=== PATIENT | female | born 1940 | race Caucasian/White ===

== ENCOUNTER → 2017-03-22 | Outpatient (CLI) | payer MEDICARE ==
[~2017-03-22] MED LIST: ACET-1256 PO; ACET325T96 PO; ACYC-57 PO; ALL100 PO; ALLO100T PO; BACL1TAB PO; BIOT1CAP3 PO; BISA10SU3 PR; BISA1TAB15 PO; BISM262S7 PO; CALC500C3 PO; CMD/25 PO; CMPS25 PR; DFL100 PO; DICY20TA35 PO; DOCU100C31 PO; DTR/5 PO; DVN/160 PO; ERTA1INJ IV; FENT25DI10 TOP; FLUT0.15 INTNAS; FLUT0.15 NAE; FLV1 PO; FNTTP50 TD; FURO-85 PO; HEPA10IN13 IVF; HYDR-5688 PO; LDDP5 TD; LIDO2SOL19 TOP; LIDOCAINE PATCH TOP; LOSA100T65 PO; LOSA1TAB38 PO; LRS20 PO; MECL1TAB42 PO; MOML PO; MRN/25 PO; MULT-506 PO; MULT-513 PO; NITR1CAP16 PO; NSF10F IVF; NVLGI7030 SC; ONDA4TAB46 PO; ONDA8TAB6 PO; ONDA8TAB62 SL; OXYB10TA PO; OXYC-609 PO; OXYC1TAB3 PO; PANT40TA PO; POLY335019 PO; POTA20TA16 PO; POTTAB2 PO; PPTBS PO; PRED-301 PO; PRED50TA PO; PROCHLORPERAZINE PO; SENN-91 PO; SITA100T3 PO; SITA1TAB27 PO; SODIENE PR; SULF800T23 PO; VALS-58 PO; VANC5CAP PO; VNTHFA/IN INH; WARF5TAB90 PO; [UNRECOGNIZED DRUG - OTHER] RE
[2017-03-22 19:08] LABS: URINE APPEARANCE TURBID (CLEAR); URINE BILIRUBIN NEG (NEG); URINE COLOR YELLOW; URINE EPITHELIAL CELL AUTO 20-30 /lpf (0-5); URINE NITRITE POS (NEG); URINE SPECIFIC GRAVITY 1.009 (1.000-1.030); UROBILINOGEN NEG (NEG)
[2017-03-22 19:14] LABS: MANUAL MICROSCOPIC REQUIRED? NO; REVIEW REQ? NO
== END | disposition home or self-care (01) ==
LOC: C.LABSPEC 10:40
PROVIDERS: ATTEND Obstetrics & Gynecology
DX: N39.0 Urinary tract infection, site not specified (principal)

== ENCOUNTER → 2017-04-12 | Outpatient (CLI) | payer MEDICARE ==
[2017-04-12 16:28] LABS: URINE APPEARANCE TURBID (CLEAR); URINE BILIRUBIN NEG (NEG); URINE COLOR YELLOW; URINE EPITHELIAL CELL AUTO >30 /lpf (0-5); URINE NITRITE POS (NEG); URINE SPECIFIC GRAVITY 1.014 (1.000-1.030); UROBILINOGEN NEG (NEG)
[2017-04-12 16:36] LABS: MANUAL MICROSCOPIC REQUIRED? NO; REVIEW REQ? YES
== END ==
LOC: C.LAB1850 14:32
PROVIDERS: ATTEND Obstetrics & Gynecology
DX: N39.0 Urinary tract infection, site not specified (principal)

== ENCOUNTER 2017-04-21 19:13 | Inpatient (IN) | payer MEDICARE, OTHER ==
[~2017-04-21] VITALS: Ht 154.9 cm; Wt 113.2 kg
[2017-04-21 21:00] VITALS: BP 100/66; PULSE 83; TEMP 36.6; O2SAT 94; BMI 45.8
[2017-04-21] MEDS ORDERED: POLYETHYLENE (MIRALAX) 17 GM PACK PO PRN (22:00)
[2017-04-21] MEDS ORDERED: DiphenhydrAMINE INJ 25 MG in SYRINGE 0 ML IV PRN (22:15)
[2017-04-21] MEDS ORDERED: DEXTROSE 50% 50 ML SYR IV PRN (22:30)
[2017-04-21] MEDS ORDERED: GLUCAGON FOR INJ 1 MG VIAL SQ PRN (22:30)
[2017-04-21] MEDS ORDERED: GLUCOSE 10 TABS/TUBE PO PRN (22:30)
[2017-04-21] MEDS ORDERED: DiphenhydrAMINE HCL 50 MG/ML VIAL IV PRN (22:30)
[2017-04-21] MEDS ORDERED: ERTAPENEM IV 1 GM in SODIUM CHLOR 0.9% AD-VAN 50ML 50 ML IV SCH (22:30)
[2017-04-21] MEDS ORDERED: GLUCOSE 40% GEL 15 GM TUBE PO PRN (22:30)
[2017-04-21] MEDS ORDERED: CMD/25 PO (22:36)
[2017-04-21] MEDS ORDERED: SITA1TAB27 PO (22:36)
[2017-04-21] MEDS ORDERED: DVN/160 PO (22:36)
[2017-04-21] MEDS ORDERED: FLUT0.15 INTNAS (22:36)
[2017-04-21] MEDS ORDERED: WARF5TAB90 PO (22:36)
--- NOTE | 2017-04-21 22:47 | History and Physical ---
History & Physical Date & Time of Service: April 21, 2017 at 22:26 Chief Complaint: E-Coli Uti, Leukocytosis Primary Care Physician: Andres Mark M.D. History of Present Illness Source: patient This is a 77 yo f that is a direct transfer from [facility] for the management of her multi drug resistant UTI. The patient states that she has been suffering from chronic UTI and a staghorn canaliculus for approx a year. She has been treated multiple times for a recurring UTI with E Coli. When she was visiting her phlebotomy coordinator Dr Hugh Canada she requested to get a UA checked because she was suffering from urinary frequency on April 12, 2017. She was diagnosed with a UTI and two medication were tried. The most recent one was Cefuroxime and she was about mid way through her course today. She notes that she was having a lot of GI upset, nausea without vomiting and general malaise. She had a bout of chills this morning. She went to the ED in [place] because of her concern for these symptoms and the headache that she was suffering from. She was evaluated in the ED there and a CT abd was done reflecting her staghorn canaliculus. She follows Dr Baez with [facility] for this. She also had multiple abnormalities in her blood work including leukocytosis (52), neutrophilia, lymphocytosis, smudge cells, atypical lymphocytes and nucleated RBC. Her cr was 1.8 but this is difficult to note if this is BL for patient. She was to be treated with Cipro but developed phlebitis from the medication and this was d/c. They wished to try a different IV antibiotic but was unable to get an IV line multiple times and there was recommendation she be transferred to [place] for further management and central line placement. She is on coumadin for a DVT as she has had three DVT in the left LE and when evaluated in the ED in [place] her INR was > 4. She denies any hematuria, abnormal bruising or epistaxis. She has also noted some looser stools over the last few days. Past Medical/Surgical History Diabetes HTN Staghorn Canaliculi Cholecystectomy Family History No pertinent family history Social History Smoking Status: Never Smoker Smokeless Tobacco Use: No Alcohol Use: none Drug Use: none Marital Status: Housing status: lives with family Occupational Status: retired Multi-Drug Resistant Organisms History of MDRO: No Allergies Coded Allergies: Ciprofloxacin (Verified Allergy, Intermediate, RASH, 04/21/17) Phlebitis Penicillins (Verified Allergy, Mild, HIVES, 04/21/17) Home Medications Scheduled Fluticasone Propionate (Nasal) (Flonase Allergy Relief), 2 SPRAYS INTNAS DAILY Sitagliptin (Januvia), 1 TAB PO DAILY Valsartan (Diovan), 1 TAB PO DAILY Warfarin Sod (Coumadin), 1 TAB PO 2XWK Warfarin Sodium (Coumadin), 1 TAB PO 5XWK Review of Systems Constitutional: + chills, No fever Eyes: No worsening of vision ENT: No hearing loss Respiratory: + dyspnea on exertion, + shortness of breath, No cough, No dyspnea at rest, No sputum, No wheezing Cardiovascular: No chest pain Abdomen: + diarrhea, + nausea, No constipation, No pain, No vomiting Musculoskeletal: No joint pain, No muscle pain Genitourinary - Female: + urinary frequency, No dysuria, No hematuria Neurologic: + weakness, No balance problems, No numbness/tingling Psychiatric: No depression symptoms Endocrine: + fatigue Integumentary: No rash Physical Exam Vital Signs Date Time Temp Pulse Resp B/P Pulse Ox O2 Delivery O2 Flow Rate FiO2 04/21/17 21:00 36.6 83 20 100/66 94 Nasal Cannula 2.0 General Appearance: no apparent distress, + obese Head: normocephalic, atraumatic Eyes: normal inspection ENT: normal ENT inspection Neck: supple Respiratory/Chest: normal breath sounds, no respiratory distress, no accessory muscle use Cardiovascular: regular rate, rhythm, no murmur Abdomen/GI: normal bowel sounds, non tender, soft Back: normal inspection Extremities/Musculoskelatal: no calf tenderness, no pedal edema, + pertinent finding (stasis dermatitis left lower extremity) Neurologic/Psych: alert, normal mood/affect, oriented x 3 Skin: normal color, warm/dry, no rash Lymphatic: no adenopathy Diagnostics Laboratory Results Results Past 24 Hours Test 04/21/17 21:54 04/21/17 22:12 Range/Units Impression Assessment and Plan This is a 77 yo f suffering from a multi drug resistant UTI and lab values which are concerning for CLL Multi drug resistant UTI - Will treat with Ertapenem based on sensitivities - Benadryl available prn - Was able to get IV access quickly, no need for central line - follow up UA - blood cultures pending Leukocytosis; r/o infectious vs CLL - Recheck CBC with a diff - [place] spot, EBV and CMV - Peripheral smear - Hem onc consult Elevated INR - Will hold coumadin - SCD for prophylaxis - recheck INR - Based on recheck may administer vit K however patient is not actively bleeding CIRO vs CKD - HIM consult for previous CR from PCP - NSS @ 100cc/h overnight - reassess in am Diarrhea and recent abx use - check for C diff DM - insulin ISS - hold Januvia HTN - Hold Losartan until BL Cr levels are received DVT prophylaxis - SCD because of elevated INR Resident Physician Supervision Note: Pt seen/examined independently. I discussed the case with the resident and agree with the findings and plan as documented in the note. Any exceptions or clarifications are listed here: 77 y/o F w/recurrent multi-drug resistant UTIs sent from [facility] who claimed that she was sent due to a history of a staghorn calculus and as they could not gain IV access. She apparently had a reaction to IV Cipro at [place] prior to losing access. She is a poor historian. Pts lactic acid is elevated on arrival and a CBC is suspicious for an underlying malignant process BMP indicates a degree of CIRO OE AAO x 3 S1,2 R CTAB NT, ND + pulses - no edema P: Cultures pending - started on Ertapenem Will obtain H/O consult to evaluate for chronic leukemia Aggressive IVF - recheck lactic, BMP Staghorn calculus is chronic however if her UTI does not improve in the short term, urology should be consulted Documented By: Rashid Messer Level of Care Telemetry Advanced Directives Existing Living Will: No Existing Power of Stereo Operator: No Resuscitation Status FULL RESUSCITATION VTE Prophylaxis VTE Risk Assessment Done? Y/N: Yes Risk Level: High Given or contraindicated: SCD's Social Service Consult None Apply Note Total Time: Critical Care 30 - 74 minutes Additional Copies To Andres Mark M.D.
[2017-04-21] MEDS: SODIUM CHLORIDE 0.9% 1000ML 1,000 ML IV SCH (23:03)
[2017-04-21] MEDS: ACETAMINOPHEN 325 MG TAB PO PRN (23:12)
[2017-04-21 23:22] LABS: PARTIAL THROMBOPLASTIN RATIO 1.6; PROTHROMBIN TIME (PATIENT) 58.8 SECONDS (9.0-12.0)
[2017-04-21 23:23] LABS: BUN/CREATININE RATIO 11.2 (10-20); CALCIUM 9.1 mg/dl (8.5-10.1); CREATININE 1.8 mg/dl (0.60-1.20); POTASSIUM 4.3 mmol/L (3.5-5.1)
[2017-04-21 23:24] VITALS: BP 128/79; PULSE 90; TEMP 36.6; O2SAT 93
[2017-04-21 23:24] LABS: INR 5.1 (0.9-1.1)
[2017-04-21 23:26] LABS: ALB/GLOB RATIO 0.8 (0.9-2)
[2017-04-22 00:22] LABS: HEMATOCRIT 35.8 % (37-47); MEAN CELL VOLUME 85.4 fL (80-100); MEAN CORPUSCULAR HEMOGLOBIN 28.9 pg (25-34); MEAN CORPUSCULAR HGB CONC 33.8 g/dl (32-36); PLATELET COUNT 55 K/uL (130-400); RED BLOOD COUNT 4.19 M/uL (4.2-5.4); WHITE BLOOD COUNT 46.73 K/uL (4.8-10.8)
[2017-04-22 00:53] LABS: EOSINOPHIL % 1.7 %; LYMPH ABS # 9.21 K/uL (1.2-3.4); LYMPHOCYTE % 19.7 %; META ABS # 2.38 K/uL (0-0); METAMYELOCYTE % 5.1 %; NEUTROPHILS % 34.2 %; PLT ESTIMATE DECREASED; PROLYM# MAN 16.78 K/uL (0-0)
[2017-04-22 00:54] LABS: COMPLETE YES
[2017-04-22 04:22] VITALS: BP 122/70; PULSE 81; TEMP 36.7; O2SAT 91
[2017-04-22] MEDS: SODIUM CHLORIDE 0.9% 1000ML 1,000 ML IV SCH ×2 (07:07→15:20)
--- NOTE | 2017-04-22 07:10 | Family Medicine Progress Note ---
Progress Note Date of Service April 22, 2017. Subjective Pt evaluation today including: conversation w/ patient, physical exam, chart review, lab review The patient was seen and examined at bedside. Family present in room. Pt reports feeling fatigues, doesn't have an appetite. Pt reports having a headache. One grandaughter states that the headache has been going on for 1 month and the other says it has been going on for four days. Pt had a fall around a month ago. CT head was in yesterday in [place] that was reportedly normal. Constitutional: + problem reported (headache), No chills, No fever, No sweats, No weight loss Respiratory: No cough Cardiovascular: No chest pain Abdomen: No diarrhea, No nausea, No pain, No vomiting Objective Physical Exam General Appearance: WD/WN, no apparent distress, + obese Respiratory/Chest: chest non-tender, lungs clear, normal breath sounds, no respiratory distress, no accessory muscle use Cardiovascular: regular rate, rhythm, no edema, no gallop, no JVD, no murmur Abdomen: normal bowel sounds, non tender, soft, no organomegaly, no pulsatile mass Extremities: normal range of motion, non-tender, normal inspection, no pedal edema, no calf tenderness Neurologic/Psychiatric: no motor/sensory deficits, normal mood/affect, oriented x 3 Skin: warm/dry, no rash Assessment and Plan 77F with a PMHx of left staghorn canaliculus is a transfer from [place] for inability to obtain IV access to the [place] ER for headache and urinary frequency. Pt was found have a UTI that has failed outpatient therapy. CBC is incidentally concerning for CLL. Lactate in [place] was 5.4-->4.1-->3.5-->3.7. Urology was consulted for recurrent drug resistant UTI. Pt cannot be on Cipro because she has had phlebitis on it in the past. Chronic UTI exacerbated by Left Staghorn Calculus - PT is clinically stable. - CT Abdomen and Pelvis radiology report is in chart under "other reports" visualizes calculi. - US kidney. 1. Severe left hydronephrosis with marked renal cortical thinning which is similar to CT of April 21, 2017. - continue with Ertapenem pending sensitivities. - Urine and blood cultures pending. - Appreciate urology recommendations: previously pt didn't want surgical intervention however when explained that this problem will continue without stent or surgical removal of calculi pt became amenable to urology consult. Leukocytosis; r/o infectious vs CLL - Murguia leukocytosis with smudge cells and elevated blasts. - [place] spot (negative), EBV and CMV (pending) - Hem onc consult - will do flow cytometry. Headache - Unknown duration (4 weeks vs 4 days), pt had a fall two weeks ago where she hit she head on the fridge. - CT head was documented in the [place] records but not available in CD she came with. - I called [place] [facility] and they said that the CT Head had No acute intracranial lesion. 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 - Tylenol 650mg PRN Q6H for headache. - Continue to monitor. Elevated INR - Currently 5.0, will hold coumadin and check INR in the AM. - SCD for prophylaxis - Platelets are 40,000 so have low threshold for transfusing. - When restarting Coumadin lower total weekly dose by at least 10%. Chronic kidney disease, stage 3 - Creatinine is 1.7. (unknown baseline). Pt has no recent [place] ER admissions since 2011 to compare to ([place] went electronic in 2011). - HIM consult for previous CR from PCP - Half NSS + 20meq KCL @ 100mls/hr for maintenance. - Continue to monitor. DM2 - Blood sugars are low, hold off on carb counting, sliding scale increase to 1: 30, and reange increased to 180mg/dl. - hold Januvia HTN - Hold Losartan until baseline creatinine levels are reached. DVT prophylaxis - SCD because of elevated INR Resident Involvement: Resident Care Provided Care Provided: Adult Hospital Medicine History Resident Physician Supervision Note: I was present with Dr. Campos during the history and exam. I discussed the case with the resident and agree with the findings and plan as documented in the note. Any exceptions or clarifications are listed here. Pt reports improved fatigue, though still persistent. Reports no fever, flank/ abd pain, n/v/d/c, lightheadedness. Some chronic, posterior headache which worsens with chin tuck which has become more prominent since admission. H/O fall 3 wks ago without immediate eval but w/ CT completed @ [facility] before transfer. General Appearance: no apparent distress, obese Respiratory: chest non-tender, lungs clear, normal breath sounds, no respiratory distress Cardiovascular: normal peripheral pulses, regular rate, rhythm, no murmur Gastrointestinal: normal bowel sounds, non tender, soft, no organomegaly Assessment/Plan 77 y/o female h/o staghorn canaliculi and recent MDRO UTI presents w/ multiple medical issues MDRO UTI - obtain records from PCP and [facility] - continue Ertapenem. BCx pending. Urology consult - has been recommended REMOVAL of canaliculi in the past and refused, but is willing to be re-evaluated at this time and consider options. Trend lactic acid level Leukocytosis - concerning for leukemia/lymphoma - hematology consulted, input appreciated - follow up serum fibrinogen, trend CBC Supratherapeutic INR - 5.0 this AM w/o stigmata of bleeding. Hold and decrease total weekly dose by 10% CIRO v. CKD - Adjust IVF to 1/2NS w/ K @ 100cc/hr, monitor DMII - ISS, can restart Januvia as outpatient HTN - add PRN, hold Losartan for now Fall history - PT consult for concern for deconditioning. DVT PPX - SCDs (INR > 3)
[2017-04-22] MEDS: ACETAMINOPHEN 325 MG TAB PO PRN ×3 (07:12→20:25)
[2017-04-22 07:13] VITALS: BP 141/65; PULSE 89; TEMP 36.4; O2SAT 92
[2017-04-22 07:20] LABS: HEMATOCRIT 34.5 % (37-47); MEAN CELL VOLUME 85.6 fL (80-100); MEAN CORPUSCULAR HGB CONC 33.9 g/dl (32-36); MEAN PLATELET VOLUME 8.1 fL (7.4-10.4); PLATELET COUNT 42 K/uL (130-400); RED BLOOD COUNT 4.03 M/uL (4.2-5.4); WHITE BLOOD COUNT 46.15 K/uL (4.8-10.8)
[2017-04-22 07:33] LABS: PARTIAL THROMBOPLASTIN RATIO 1.7; PROTHROMBIN TIME (PATIENT) 56.9 SECONDS (9.0-12.0)
[2017-04-22 07:40] LABS: BUN/CREATININE RATIO 12.6 (10-20); CALCIUM 8.8 mg/dl (8.5-10.1); CREATININE 1.7 mg/dl (0.60-1.20); POTASSIUM 4.2 mmol/L (3.5-5.1)
[2017-04-22] MEDS: FLUTICASONE PROPIONATE NA SPR 16 GM BTL SCH (08:55)
[2017-04-22] MEDS: INSULIN ASPART 100 UNITS/ML 3 ML PEN SC SCH ×4 (08:56→20:56)
[2017-04-22 09:44] LABS: COMPLETE YES; EOSINOPHIL % 0.9 %; LYMPH ABS # 23.03 K/uL (1.2-3.4); LYMPHOCYTE % 49.9 %; METAMYELOCYTE % 2.6 %; MYELOCYTE % 0.9 %; NEUTROPHILS % 37.1 %
[2017-04-22 10:00] VITALS: Ht 154.9 cm; Wt 113.2 kg
[2017-04-22 10:28] LABS: SMUDGE CELLS PRESENT
--- NOTE | 2017-04-22 11:04 | Oncology Consultation ---
Oncology/Heme Consultation Date of Consultation: April 22, 2017. Attending Physician: Vik Ma MD Reason for Consultation: Thrombocytopenic and lymphocytosis History of Present Illness Ms. Perez is 77-year-old female that states that she has been troubled with repeated urinary tract infections for almost a year. The bulk of her care has been in the [facility]. She was admitted yesterday and with the admission was found to have a lymphocytosis and a platelet count of 40-50,000. She states that she has been on Coumadin for repeated clots. She is only a fair historian. She denies significant night sweats although she states that occasionally she does have a sweat that she thinks is most likely related to menopause. She denies any weight loss. She states she had a chill the other night not on ago. We have no other blood work to follow back on other than a CBC from 2001 was normal Family History No pertinent family history Social History Smoking Status: Never Smoker Smokeless Tobacco Use: No Alcohol Use: none Drug Use: none Marital Status: Occupation Status: retired Allergies Coded Allergies: Ciprofloxacin (Verified Allergy, Intermediate, RASH, 04/21/17) Phlebitis Penicillins (Verified Allergy, Mild, HIVES, 04/21/17) Home Medications Scheduled Fluticasone Propionate (Nasal) (Flonase Allergy Relief), 2 SPRAYS INTNAS DAILY Sitagliptin (Januvia), 1 TAB PO DAILY Valsartan (Diovan), 1 TAB PO DAILY Warfarin Sod (Coumadin), 1 TAB PO 2XWK Warfarin Sodium (Coumadin), 1 TAB PO 5XWK Current Inpatient Medications Current Inpatient Medications Medications (Trade) Dose Ordered Sig/[place] Route Start Time Stop Time Status Last Admin Dose Admin Acetaminophen (Tylenol Tab) 650 mg Q4H PRN PO 04/21/17 22:00 05/21/17 21:59 04/22/17 07:12 650 MG Polyethylene (Miralax Powder Packet) 17 gm DAILY PRN PO 04/21/17 22:00 05/21/17 21:59 Ondansetron HCl 4 mg 4 mg Q6H PRN IV 04/21/17 22:00 05/21/17 21:59 Ertapenem/Sodium Chloride (Invanz Iv/Nss Ad-Van 50ml) 50 ml @ 120 mls/hr Q24H IV 04/22/17 22:00 05/01/17 21:59 Insulin Aspart SLIDING SCALE G... ACHS SC 04/22/17 06:30 05/22/17 06:29 Sodium Chloride (Nss 1000ml) 1,000 ml @ 125 mls/hr Q8H IV 04/21/17 22:30 05/21/17 22:29 04/22/17 07:07 125 MLS/HR Glucose (Glucose 40% Gel) 15-30 GRAMS 15 GRAMS... UD PRN PO 04/21/17 22:30 05/21/17 22:29 Glucose (Glucose Chew Tab) 4-8 Tablets 4 Tabl... UD PRN PO 04/21/17 22:30 05/21/17 22:29 Dextrose (Dextrose 50% 50ML Syringe) 25-50ML OF 50% DW IV FOR... UD PRN IV 04/21/17 22:30 05/21/17 22:29 Glucagon (Glucagon Inj) 1 mg UD PRN SQ 04/21/17 22:30 05/21/17 22:29 Diphenhydramine HCl (Benadryl Inj) 25 mg Q6H PRN IV 04/21/17 22:30 05/21/17 22:29 04/21/17 23:01 25 MG Fluticasone Propionate (Flonase Nasal [place]) 2 sprays DAILY NA 04/22/17 09:00 05/22/17 08:59 04/22/17 08:55 2 SPRAYS Review of Systems Constitutional: Negative for significant night sweats, or fever Eyes: Negative for event change of vision ENT: Negative for epistaxis, nasal discharge, sore throat, or deafness Cardiovascular: Negative for chest pain, palpitations, dizziness, diaphoresis Respiratory: Negative for new shortness of breath,hemoptysis, or purulent cough Gastrointestinal: Negative for diarrhea, hematemesis, melena, nausea, vomiting , or dyspepsia Integumentary (skin): Negative for rash or jaundice discoloration Genitourinary: Negative for urinary frequency, hematuria, or dysuria. She states she has a history of kidney stone and again has had repeated urinary tract infections. Neurological: Negative for weakness, seizure activity, headache, or dizziness Lymphatic/Hematologic: Negative for petechiae, bleeding or new adenopathy Musculoskeletal: Negative for new joint or back pain Allergic/Immunologic: Negative for unusual rash or pruritis. Physical Exam Date Time Temp Pulse Resp B/P Pulse Ox O2 Delivery O2 Flow Rate FiO2 04/22/17 07:49 Nasal Cannula 2.0 04/22/17 07:13 36.4 89 18 141/65 92 Room Air 04/22/17 04:22 36.7 81 18 122/70 91 Nasal Cannula 2.0 04/22/17 04:00 Nasal Cannula 2.0 04/22/17 00:00 Nasal Cannula 2.0 04/21/17 23:24 36.6 90 18 128/79 93 Nasal Cannula 2.0 04/21/17 21:00 36.6 83 20 100/66 94 Nasal Cannula 2.0 Constitutional: vitals are stable. Pleasant alert obese female Eyes: Eyes are POLLO EOMI without conjuctival erythema or icterus. ENT: External examination was negative for masses. Neck: Negative for masses or palpable thyromegaly Respiratory: Lung sounds were generally clear bilaterally Cardiovascular: Heart was RRR without significant murmur, gallops aoe rubs Gastrointestinal: No palpable hepatic or splenomegaly. The abdomen was soft with normal bowel sounds. Exam is difficult to the patient's eyes Lymphatic system: there was no palpable peripheral lymphadenopathy Musculoskeletal System: The musculoskeletal system seemed concordant with age. Skin: The skin was negative for jaundice. Neurologic exam: The exam was negative for any focal findings. Deep tendon reflexes were equal and symmetrical. Psychiatric exam: Was essentially negative with normal mood and effect. Breast exam: Not done Extremities: Negative for edema or erythema Laboratory Results Last 24 Hours Test 04/21/17 22:45 04/22/17 06:58 04/22/17 07:20 04/22/17 07:53 White Blood Count 46.73 K/uL 46.15 K/uL Red Blood Count 4.19 M/uL 4.03 M/uL Hemoglobin 12.1 g/dL 11.7 g/dL Hematocrit 35.8 % 34.5 % Mean Corpuscular Volume 85.4 fL 85.6 fL Mean Corpuscular Hemoglobin 28.9 pg 29.0 pg Mean Corpuscular Hemoglobin Concent 33.8 g/dl 33.9 g/dl Platelet Count 55 K/uL 42 K/uL Mean Platelet Volume 8.0 fL 8.1 fL RDW Standard Deviation 47.4 fL 48.3 fL RDW Coefficient of Variation 15.1 % 15.3 % Nucleated RBC Absolute Count (auto) 0.32 K/uL 0.33 K/uL Neutrophils % (Manual) 34.2 % 37.1 % Lymphocytes % (Manual) 19.7 % 49.9 % Prolymphocyte % 35.9 % Monocytes % (Manual) 3.4 % 6.0 % Eosinophils % (Manual) 1.7 % 0.9 % Metamyelocytes % 5.1 % 2.6 % Nucleated Red Blood Cells % 0.7 % 0.7 % Neutrophils # (Manual) 15.98 K/uL 17.12 K/uL Total Absolute Neutrophils 15.98 K/uL 17.12 K/uL Lymphocytes # (Manual) 9.21 K/uL 23.03 K/uL Prolymphocyte # 16.78 K/uL Total Absolute Lymphocytes 9.21 K/uL 23.03 K/uL Monocytes # (Manual) 1.59 K/uL 2.77 K/uL Eosinophils # (Manual) 0.79 K/uL 0.42 K/uL Metamyelocytes # 2.38 K/uL 1.20 K/uL Platelet Estimate DECREASED Red Blood Cell Morphology Unremarkable Prothrombin Time 58.8 SECONDS 56.9 SECONDS Prothromb Time International Ratio 5.1 5.0 Activated Partial Thromboplast Time 41.5 SECONDS 43.4 SECONDS Partial Thromboplastin Ratio 1.6 1.7 Sodium Level 140 mmol/L 140 mmol/L Potassium Level 4.3 mmol/L 4.2 mmol/L Chloride Level 106 mmol/L 109 mmol/L Carbon Dioxide Level 19 mmol/L 20 mmol/L Anion Gap 15.0 mmol/L 11.0 mmol/L Blood Urea Nitrogen 20 mg/dl 21 mg/dl Creatinine 1.80 mg/dl 1.70 mg/dl Est Creatinine Clear Calc Drug Dose 31.0 ml/min 32.8 ml/min Estimated GFR () 31.4 33.6 Estimated GFR (Non- 27.1 29.0 BUN/Creatinine Ratio 11.2 12.6 Random Glucose 96 mg/dl 61 mg/dl Lactic Acid Level 4.1 mmol/L Calcium Level 9.1 mg/dl 8.8 mg/dl Total Bilirubin 0.5 mg/dl Aspartate Amino Transf (AST/SGOT) 220 U/L Alanine Aminotransferase (ALT/SGPT) 37 U/L Alkaline Phosphatase 225 U/L Total Protein 6.9 gm/dl Albumin 3.1 gm/dl Globulin 3.8 gm/dl Albumin/Globulin Ratio 0.8 Monoscreen NEG Myelocytes % 0.9 % Blast Cells % 2.6 % Myelocytes # 0.42 K/uL Blast Cells # 1.20 K/uL Smudge Cells PRESENT Bedside Glucose 61 mg/dl 76 mg/dl Test 04/22/17 08:37 Lactic Acid Level 3.5 mmol/L Assessment & Plan CBC was reviewed. She may indeed have CLL or some sort of lymphoproliferative lesion and a flow cytometric study will be done. Her INR is markedly prolonged presumed secondary to Coumadin she has no overt bleeding but platelet count is also borderline at 40-50,000. We'll check a serum fibrinogen I would not hesitate to give vitamin K and perhaps 2-1/2 mg parenterally although she appears clinically stable at this juncture. CBC should be done daily. She states she had a CT of her abdomen entire at [facility] yesterday and we should gather those results. For now we will follow along with you and order the above blood tests. We'll see how this unfolds but certainly if we find no infection is found and she remains thrombocytopenic than she may need intervention for the presumptive underlying lymphoproliferative lesion
[2017-04-22 11:17] VITALS: BP 120/63; PULSE 88; TEMP 36.6; O2SAT 93
--- NOTE | 2017-04-22 12:49 | Clinical Documentation Query ---
CLINICAL DOCUMENTATION QUERY Dr. ROMERO, In your clinical opinion is this patient being managed for: (x) Chronic kidney disease, stage 3 ( ) Other explanation of clinical findings (Please Explain) ( ) Unable to determine (Please Define) ( ) Need to Discuss ( ) Not Agree The medical record reflects the following clinical findings, treatment, and risk factors. Clinical Indicators: 77 yo female presenting with MDR UTI. Review of documentation from sending facility indicates pt has CKD stage III. H/P mentions CIRO vs CKD. Treatment:monitor PRP Risk Factors: age, DM, HTN Please clarify and document your clinical opinion in the progress notes and discharge summary. Terms such as "probable", "suspected", "likely", "questionable", "possible", or "still to be ruled out" are acceptable. IF IN AGREEMENT, YOU MUST DOCUMENT ABOVE DIAGNOSTIC STATEMENT IN DAILY PROGRESS NOTES AND DISCHARGE SUMMARY. This document is not part of the patient's record. Thank You, Lucila Ryan, RN [phone]
--- NOTE | 2017-04-22 12:50 | Clinical Documentation Query ---
CLINICAL DOCUMENTATION QUERY Dr. CHAVES, In your clinical opinion is this patient being managed for: ( ) Chronic kidney disease, stage 3 ( ) Other explanation of clinical findings (Please Explain) (X) Unable to determine (Please Define) - need confirmation w/ lab values, but likely so and will document accordingly. ( ) Need to Discuss ( ) Not Agree The medical record reflects the following clinical findings, treatment, and risk factors. Clinical Indicators: 77 yo female presenting with MDR UTI. Review of documentation from sending facility indicates pt has CKD stage III. H/P mentions CIRO vs CKD. Treatment:monitor PRP Risk Factors: age, DM, HTN Please clarify and document your clinical opinion in the progress notes and discharge summary. Terms such as "probable", "suspected", "likely", "questionable", "possible", or "still to be ruled out" are acceptable. IF IN AGREEMENT, YOU MUST DOCUMENT ABOVE DIAGNOSTIC STATEMENT IN DAILY PROGRESS NOTES AND DISCHARGE SUMMARY. This document is not part of the patient's record. Thank You, Lucila Ryan RN [phone]
[2017-04-22 15:03] VITALS: BP 136/68; PULSE 88; TEMP 36.4; O2SAT 93
[2017-04-22] MEDS: SODIUM CHLOR 0.45% + 20MEQ KCL 1,000 ML IV SCH (17:16)
--- NOTE | 2017-04-22 17:25 | DIAGNOSTIC IMAGING REPORT ---
RENAL ULTRASOUND CLINICAL HISTORY: Staghorn canaliculus, UTI. COMPARISON STUDY: CT of the abdomen and pelvis April 21, 2017. TECHNIQUE: Sonography of the kidneys and the urinary bladder was performed. FINDINGS: The right kidney measures 11.3 x 5.4 x 6.3 cm and the left measures 12.8 x 9.1 x 6.8 cm. This exam is compromised by suboptimal penetration. There is no right hydronephrosis. The right kidney is normal by sonography. The left renal staghorn calculus shown on CT of April 21, 2017 is not well visualized on this exam likely due to technique. Severe left hydronephrosis with cortical thinning is again noted. This appears unchanged. Neither ureteral jet was identified. IMPRESSION: 1. Severe left hydronephrosis with marked renal cortical thinning which is similar to CT of April 21, 2017. Left renal staghorn calculus shown on prior exam not well visualized, likely due to technique. 2. Normal sonographic appearance of the right kidney. Electronically signed by: Akbar Wills M.D. 04/22/2017 5:23 PM Dictated Date/Time: 04/22/2017 5:21 PM
[2017-04-22 20:15] VITALS: BP 129/77; PULSE 92; TEMP 36.4; O2SAT 94
--- NOTE | 2017-04-22 20:53 | DIAGNOSTIC IMAGING REPORT ---
CHEST 2 VIEWS ROUTINE CLINICAL HISTORY: Lymphocytosis. COMPARISON STUDY: No previous studies for comparison. FINDINGS: Lung volumes are normal. There is no pneumothorax or pleural effusion. Linear bilateral opacities suggest atelectasis or scarring. Cardiac size is at the upper limits of normal. There is no evidence of pulmonary edema. There is no consolidation. IMPRESSION: 1. No acute cardiopulmonary findings. 2. Linear bilateral opacities suggestive of atelectasis. Electronically signed by: Akbar Wills M.D. 04/22/2017 8:52 PM Dictated Date/Time: 04/22/2017 8:51 PM
[2017-04-22] MEDS: ERTAPENEM IV 1 GM in SODIUM CHLOR 0.9% AD-VAN 50ML 50 ML IV SCH (22:09)
[2017-04-23] VITALS (16 sets, daily range): BP systolic 110–150; BP diastolic 70–81; PULSE 82–101; TEMP 36.3–37; O2SAT 90–97
[2017-04-23] MEDS: ONDANSETRON INJ 2 MG/ML 2 ML VIAL IV PRN ×3 (01:56→19:30)
[2017-04-23] MEDS: SODIUM CHLOR 0.45% + 20MEQ KCL 1,000 ML IV SCH ×2 (02:00→12:30)
[2017-04-23] MEDS: ACETAMINOPHEN 325 MG TAB PO PRN ×3 (02:01→19:32)
[2017-04-23 06:30] LABS: HEMATOCRIT 34.4 % (37-47); MEAN CELL VOLUME 86.2 fL (80-100); MEAN CORPUSCULAR HEMOGLOBIN 28.8 pg (25-34); MEAN CORPUSCULAR HGB CONC 33.4 g/dl (32-36); MEAN PLATELET VOLUME 8.9 fL (7.4-10.4); PLATELET COUNT 34 K/uL (130-400); RED BLOOD COUNT 3.99 M/uL (4.2-5.4); WHITE BLOOD COUNT 53.22 K/uL (4.8-10.8)
[2017-04-23] MEDS: INSULIN ASPART 100 UNITS/ML 3 ML PEN SC SCH ×4 (06:30→20:37)
[2017-04-23 06:31] LABS: PROTHROMBIN TIME (PATIENT) 66.9 SECONDS (9.0-12.0)
[2017-04-23 06:33] LABS: INR 5.8 (0.9-1.1)
[2017-04-23 06:53] LABS: BUN/CREATININE RATIO 15.9 (10-20); CALCIUM 8.5 mg/dl (8.5-10.1); CREATININE 1.6 mg/dl (0.60-1.20); POTASSIUM 4.3 mmol/L (3.5-5.1)
--- NOTE | 2017-04-23 07:07 | Family Medicine Progress Note ---
Progress Note Date of Service April 23, 2017. Subjective Pt evaluation today including: conversation w/ patient, physical exam, chart review, lab review The patient is feeling better, and denies acute overnight events. She states she thoughts that she was going to when she had been admitted at the outside hospital and though she knows her issues are complex, she is feeling better than initially Constitutional: No chills, No fever Respiratory: No cough, No shortness of breath Cardiovascular: No chest pain, No palpitations Abdomen: No nausea, No pain Objective Vital Signs Date Time Temp Pulse Resp B/P Pulse Ox O2 Delivery O2 Flow Rate FiO2 04/23/17 04:57 37.0 101 18 148/81 94 2.0 04/23/17 04:00 Nasal Cannula 1.0 04/23/17 00:30 36.9 99 18 130/72 92 2.0 04/23/17 00:00 Nasal Cannula 1.0 04/22/17 20:15 36.4 92 20 129/77 94 Nasal Cannula 1.0 04/22/17 19:52 Nasal Cannula 1.0 04/22/17 15:03 36.4 88 18 136/68 93 Nasal Cannula 1.0 04/22/17 12:00 Nasal Cannula 2.0 04/22/17 11:17 36.6 88 20 120/63 93 Nasal Cannula 1.0 04/22/17 07:49 Nasal Cannula 2.0 04/22/17 07:13 36.4 89 18 141/65 92 Room Air Physical Exam General Appearance: WD/WN, + obese Eyes: normal inspection ENT: hearing grossly normal Neck: supple Respiratory/Chest: lungs clear, normal breath sounds, no respiratory distress, no accessory muscle use, + pertinent finding Cardiovascular: regular rate, rhythm Abdomen: normal bowel sounds, non tender, soft Extremities: normal inspection, no calf tenderness Neurologic/Psychiatric: alert, normal mood/affect, oriented x 3 Skin: normal color, warm/dry, no rash, + pertinent finding (no excessive bruising or bleeding noted) Laboratory Results Results Past 24 Hours Test 04/23/17 06:07 04/23/17 07:26 04/23/17 11:11 04/23/17 14:15 Range/Units White Blood Count 53.22 55.72 4.8-10.8 K/uL Red Blood Count 3.99 4.00 4.2-5.4 M/uL Hemoglobin 11.5 11.2 12.0-16.0 g/dL Hematocrit 34.4 34.0 37-47 % Mean Corpuscular Volume 86.2 85.0 80-100 fL Mean Corpuscular Hemoglobin 28.8 28.0 25-34 pg Mean Corpuscular Hemoglobin Concent 33.4 32.9 32-36 g/dl RDW Standard Deviation 50.7 50.6 36.4-46.3 fL RDW Coefficient of Variation 15.9 16.2 11.5-14.5 % Platelet Count 34 29 130-400 K/uL Mean Platelet Volume 8.9 8.3 7.4-10.4 fL Nucleated RBC Absolute Count (auto) 0.62 0.66 0-0 K/uL Nucleated Red Blood Cells % 1.2 1.2 % Prothrombin Time 66.9 37.7 9.0-12.0 SECONDS Prothromb Time International Ratio 5.8 3.4 0.9-1.1 Sodium Level 141 136-145 mmol/L Potassium Level 4.3 3.5-5.1 mmol/L Chloride Level 111 98-107 mmol/L Carbon Dioxide Level 17 21-32 mmol/L Anion Gap 13.0 3-11 mmol/L Blood Urea Nitrogen 26 7-18 mg/dl Creatinine 1.60 0.60-1.20 mg/dl Est Creatinine Clear Calc Drug Dose 35.2 ml/min Estimated GFR () 36.2 Estimated GFR (Non- 31.2 BUN/Creatinine Ratio 15.9 10-20 Random Glucose 105 70-99 mg/dl Lactic Acid Level 3.8 0.4-2.0 mmol/L Calcium Level 8.5 8.5-10.1 mg/dl Bedside Glucose 101 119 70-90 mg/dl Test 04/23/17 16:50 04/23/17 20:22 04/24/17 04:44 Range/Units Bedside Glucose 124 128 70-90 mg/dl Assessment and Plan 77F with a PMHx of left staghorn canaliculus is a transfer from [place] for inability to obtain IV access on background of headache and urinary frequency. Pt was found have a UTI that has failed outpatient therapy. CBC is incidentally concerning for CLL. Lactate in [place] was 5.4-->4.1-->3.5-->3.7. Urology was consulted for recurrent drug resistant UTI. Chronic UTI exacerbated by left staghorn calculus - PT is clinically stable. CT A/P from [place] visualizes calculi. US kidney 04/21: Severe left hydronephrosis with marked renal cortical thinning which is similar to CT of April 21, 2017. Evidence of multi-drug resistant organism. Blood cultures negative. Urology consulted - appreciate recs. 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 [place] spot negative. Heme/onc consulted - recs appreciated. - EBV and CMV pending - Flow cytometry results pending Thrombocytopenia - ongoing relatively rapid decline, without clinical symptoms. Some concern of this being indicative of prior sepsis leading to DIC - Continue to trend CBC - Consider platelet tranfusion + FFP if indicated Elevated INR - At 5.8 this morning, and has been trending up despite holding warfarin. s/p IV vitamin K 7.5mg, improved INR to 3.4 - Trend INR - When restarting Coumadin, plans to lower total weekly dose by at least 10%. Headache - Unknown duration (4 weeks vs 4 days), pt had a fall two weeks ago where she hit she head on the fridge. CT head was done in [place] showing no acute intracranial lesion. 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 - Tylenol 650mg PRN Q6H for headache. - Continue to monitor. Loose stools - C. diff testing, FOBT - collection pending Chronic kidney disease, stage 3 - Creatinine is 1.7 (unknown baseline), currently Cr 1.6. mIVF with KCl discontinued - Trend BMP DM2 - Januvia held - ISS with BGS ac/hs HTN - Losartan held in view of CIRO, currentl patient has low normal SBP - Hold Losartan DVT prophylaxis - SCD because of elevated INR Full code Continued [facility] stay due to: abnormal vital signs, multiple IV medications needed Resident Tracking Resident Involvement: Resident Care Provided Care Provided: Adult Hospital Medicine History Resident Physician Supervision Note: I was present with Dr. Brown during the history and exam. I discussed the case with the resident and agree with the findings and plan as documented in the note. Any exceptions or clarifications are listed here. Pt sitting comfortably in chair at bedside after working with PT. Having episodes of loose, watery 'rust colored' diarrhea today which are not foul smelling which are new for her. Reports no n/v, abd pain, lightheadedness, CP/ SOB, sensory changes. Family at bedside, questions regarding imaging, course of care and hematology input reviewed. General Appearance: WD/WN, no apparent distress Respiratory: chest non-tender, lungs clear, normal breath sounds, no respiratory distress Cardiovascular: normal peripheral pulses, regular rate, rhythm, no edema, no murmur Gastrointestinal: normal bowel sounds, non tender, soft Assessment/Plan 77 y/o female h/o staghorn canaliculi and recent MDRO UTI presents w/ multiple medical issues MDRO UTI - obtain records from PCP and [facility], Urology consulted, input appreciated - continue Ertapenem. BCx pending. d/c IVF and encourage PO fluids h/o staghorn canaliculi - urology consult reviewed potential options for intervention and per documentation would favor either staged scope approach or nephrectomy. CIRO v. CKD - d/c IVF today, will recheck BMP in AM and reconsider then Leukocytosis - concerning for leukemia/lymphoma - hematology consulted, input appreciated - trend CBC Thrombocytopenia - continuing downward trend, some concern for DIC - trend CBC in AM Supratherapeutic INR - improved to 3.4 s/p VIt K IV - holding dose Diarrhea - C. diff testing, FOBT DMII - ISS, can restart Januvia as outpatient HTN - stable, hold Losartan for now Fall history - PT onboard DVT PPX - SCDs
[2017-04-23] MEDS ORDERED: PHYTONADIONE INJ 2.5 MG in SODIUM CHLORIDE 0.9% 50ML 50 ML IV ONE (08:30)
[2017-04-23] MEDS: ALLOPURINOL 100 MG TAB PO SCH (08:44)
[2017-04-23] MEDS: FLUTICASONE PROPIONATE NA SPR 16 GM BTL SCH (08:44)
--- NOTE | 2017-04-23 10:04 | Urology Consultation ---
History General Date of Service: April 23, 2017. Chief Complaint: Recurrent UTI, L renal stones Primary Care Physician: Andres Mark M.D. Pt seen a urologist before?: Yes If yes, why?: Dr. Baez, Dr. Arrieta for same History of Present Illness 77 yo female, comorbid, admitted with a persistent UTI as an outpatient, transferred from [facility]. She has a long and florid history which she and her sister relate for me today. She has a longstanding history of large L renal stones and hydronephrosis with renal atrophy, managed conservatively due to her comorbidities and history of anticoagulation and a history of recurrent UTI felt to be related to this. She notes she has been seen by Dr. Baez and Dr. Arrieta for this problem and due to the concern over her surgical and bleeding risk no intervention was recommended. She has not followed with urology for over a year per her report. She has had a recent CT scan, images reviewed with patient and family in PACS as well as a recent US an [facility] showing L renal atrophy and large stone burden. She notes last year she had a renal scan which showed the differential function of her left kidney at ~ 25%, unchanged with the presence of a stent which she tolerated poorly. Her current cultures are noted to be negative, Cr elevated and leukocytosis is noted for which she is undergoing hematology evaluation for possible lymphoproliferative disorder. Urology consultation is sought out to assist with her care. She has been afebrile since admission. Imaging Imaging: CT, Ultrasound Laboratory Last 24 Hours Test 04/22/17 11:37 04/22/17 13:29 04/22/17 15:00 04/22/17 16:27 Bedside Glucose 88 mg/dl 91 mg/dl Fibrinogen 381 mg/dl Uric Acid 10.4 mg/dl Lactate Dehydrogenase 9119 U/L Troponin I < 0.015 ng/ml Immunoglobulin G 907.0 mg/dL Immunoglobulin A 195.0 mg/dL Immunoglobulin M 105.0 mg/dL Lactic Acid Level 3.7 mmol/L Test 04/22/17 20:29 04/22/17 22:00 04/23/17 06:07 04/23/17 07:26 Bedside Glucose 103 mg/dl 101 mg/dl Lactic Acid Level 3.9 mmol/L 3.8 mmol/L White Blood Count 53.22 K/uL Red Blood Count 3.99 M/uL Hemoglobin 11.5 g/dL Hematocrit 34.4 % Mean Corpuscular Volume 86.2 fL Mean Corpuscular Hemoglobin 28.8 pg Mean Corpuscular Hemoglobin Concent 33.4 g/dl RDW Standard Deviation 50.7 fL RDW Coefficient of Variation 15.9 % Platelet Count 34 K/uL Mean Platelet Volume 8.9 fL Nucleated RBC Absolute Count (auto) 0.62 K/uL Nucleated Red Blood Cells % 1.2 % Prothrombin Time 66.9 SECONDS Prothromb Time International Ratio 5.8 Sodium Level 141 mmol/L Potassium Level 4.3 mmol/L Chloride Level 111 mmol/L Carbon Dioxide Level 17 mmol/L Anion Gap 13.0 mmol/L Blood Urea Nitrogen 26 mg/dl Creatinine 1.60 mg/dl Est Creatinine Clear Calc Drug Dose 35.2 ml/min Estimated GFR () 36.2 Estimated GFR (Non- 31.2 BUN/Creatinine Ratio 15.9 Random Glucose 105 mg/dl Calcium Level 8.5 mg/dl Past History deep vein thrombosis (recurrent), diabetes, high cholesterol, hypertension, kidney stones, urinary tract infection, other (obesity) Past Surgical History: cholecystectomy, TKR, ureteral stent Family History No pertinent family history Social History Hx Tobacco Use In Past Year?: No Smoking: non-smoker Alcohol: no current use Marital status: Housing status: lives with family Occupation status: retired History of MDRO No Allergies Coded Allergies: Ciprofloxacin (Verified Allergy, Intermediate, RASH, 04/21/17) Phlebitis Penicillins (Verified Allergy, Mild, HIVES, 04/21/17) Medications Home Medications: Home Meds and Scripts Medications Dose Route/Sig Max Daily Dose Days Date Category Flonase Allergy Relief (Fluticasone Propionate (Nasal)) 50 Mcg/Act Spr 2 Sprays INTNAS DAILY 04/21/17 Reported Coumadin (Warfarin Sod) 2.5 Mg Tab 1 Tab PO 2XWK 30 04/21/17 Reported Coumadin (Warfarin Sodium) 5 Mg Tab 1 Tab PO 5XWK 90 04/21/17 Reported Januvia (Sitagliptin) 100 Mg Tab 1 Tab PO DAILY 30 04/21/17 Reported Diovan (Valsartan) 160 Mg Tab 1 Tab PO DAILY 30 04/21/17 Reported Inpatient Medications: Current Inpatient Medications Medications (Trade) Dose Ordered Sig/[place] Route Start Time Stop Time Status Last Admin Dose Admin Acetaminophen (Tylenol Tab) 650 mg Q4H PRN PO 04/21/17 22:00 05/21/17 21:59 04/23/17 02:01 650 MG Polyethylene (Miralax Powder Packet) 17 gm DAILY PRN PO 04/21/17 22:00 05/21/17 21:59 Ondansetron HCl 4 mg 4 mg Q6H PRN IV 04/21/17 22:00 05/21/17 21:59 04/23/17 01:56 4 MG Ertapenem/Sodium Chloride (Invanz Iv/Nss Ad-Van 50ml) 50 ml @ 120 mls/hr Q24H IV 04/22/17 22:00 05/01/17 21:59 04/22/17 22:09 120 MLS/HR Insulin Aspart (novoLOG ASPART) SLIDING SCALE G... ACHS SC 04/22/17 06:30 05/23/17 06:29 Glucose (Glucose 40% Gel) 15-30 GRAMS 15 GRAMS... UD PRN PO 04/21/17 22:30 05/21/17 22:29 Glucose (Glucose Chew Tab) 4-8 Tablets 4 Tabl... UD PRN PO 04/21/17 22:30 05/21/17 22:29 Dextrose (Dextrose 50% 50ML Syringe) 25-50ML OF 50% DW IV FOR... UD PRN IV 04/21/17 22:30 05/21/17 22:29 Glucagon (Glucagon Inj) 1 mg UD PRN SQ 04/21/17 22:30 05/21/17 22:29 Diphenhydramine HCl (Benadryl Inj) 25 mg Q6H PRN IV 04/21/17 22:30 05/21/17 22:29 04/21/17 23:01 25 MG Fluticasone Propionate 2 sprays 2 sprays DAILY NA 04/22/17 09:00 05/22/17 08:59 04/23/17 08:44 2 SPRAYS Potassium Chloride/Sodium Chloride (1/2 Nss + 20meq KCl 1000ml) 1,000 ml @ 100 mls/hr Q10H IV 04/22/17 16:30 05/22/17 16:29 04/23/17 02:00 100 MLS/HR Allopurinol (Zyloprim Tab) 100 mg DAILY PO 04/23/17 09:00 05/23/17 08:59 04/23/17 08:44 100 MG Review of Systems Review of Systems Constitutional: + chills (prior to admission), + fever Eyes: No eye pain Neurological: No passing out Endocrine: + tired/sluggish, + too cold, + too hot Gastrointestinal: + abdominal pain, + nausea Cardiovascular: No chest pain, No irregular heartbeat Respiratory: + shortness of breath Skin: No boils, No dry skin Musculoskeletal: + back pain Blood / Lymphatic: No swollen glands Ears / Nose / Throat: No sinus Psychologic / Mental: No nervous Female : + infections, + kidney stones, + see HPI Physical Exam Vital Signs: Vital Signs Past 12 Hours Date Time Temp Pulse Resp B/P Pulse Ox O2 Delivery O2 Flow Rate FiO2 04/23/17 08:59 36.6 97 18 117/74 95 Nasal Cannula 2.0 04/23/17 08:00 90 Room Air 2.0 04/23/17 07:21 36.9 83 20 150/70 90 Room Air 04/23/17 04:57 37.0 101 18 148/81 94 2.0 04/23/17 04:00 Nasal Cannula 1.0 04/23/17 00:30 36.9 99 18 130/72 92 2.0 04/23/17 00:00 Nasal Cannula 1.0 Physical Exam: General Appearance: + mild distress, + obese ENT: normal ENT inspection Neck: supple, no adenopathy Respiratory/Chest: + respiratory distress (mild, NC O2) Cardiovascular: no JVD Gastrointestinal: Abdomen: normal abdomen (limited due to obesity) Bladder: normal bladder Renal: normal renal Hernia: absent hernia Liver: normal liver Spleen: normal spleen Extremities: non-tender Neurologic/Psychiatric: alert Skin: normal color Assessment & Plan Assessment & Plan A/P 77 yo female with an atrophic L kidney, large L renal stone burden and recurrent UTI, most recently MDR. Findings reviewed with patient and sister. Lengthy discussion of her care with > 70 minutes being spent in her care of which >50% is spent in [id number] discussion of her history, treatment options, imaging findings and the risks and benefits of various forms of management. Patient seems to be failing conservative management of her large L renal stone which is very likely the source of her recurrent UTIs, especially in light of the development of refractory infections and multidrug resistance. Typical options for management would be ESWL, ureteroscopic management, ideally PCNL for larger stones such as hers and, in the context of an atrophic kidney, nephrectomy. ESWL and PCNL would be relatively contraindicated due to her history of DVT and the need for anticoagulation. Her stones could be addressed ureteroscopically, with the understanding that a staged procedure might be required. She is anxious about stent intolerance but again conservative management has not prevented significant comorbidity in my view. The most definitive option would be to consider nephrectomy, but it is unclear how much renal reserve she carries and the degree of actual function of her left kidney - it might of deteriorated further since her last assessment. Lovenox bridge could be considered for ureteroscopy or nephrectomy, or an IVC filter could also be placed to mitigate the risk of PE. Would certainly want to obtain and review her prior workup and records before and also allow for her current UTI to resolve prior to any consideration of intervention. Patient and sister vocalize understanding of the treatment plan and considerations. She is offered follow-up with myself or to reestablish care with Dr. Baez for further consideration of her management. She will consider. Will follow as inpatient for now. No acute intervention at this time, consider antimicrobial therapy per primary service.
--- NOTE | 2017-04-23 11:23 | Hematology/Oncology Prog Note ---
Hematology/Onc Progress Note Date of Service April 23, 2017. 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 Medications Medications Administered Medications (Trade) Dose Ordered Sig/[place] Route Start Time Stop Time Status Last Admin Dose Admin Acetaminophen (Tylenol Tab) 650 mg Q4H PRN PO 04/21/17 22:00 05/21/17 21:59 04/23/17 10:12 650 MG Ondansetron HCl 4 mg 4 mg Q6H PRN IV 04/21/17 22:00 05/21/17 21:59 04/23/17 10:12 4 MG Ertapenem 1 gm/ Sodium Chloride 50 ml @ 120 mls/hr Q24H IV 04/22/17 22:00 05/01/17 21:59 04/22/17 22:09 120 MLS/HR Sodium Chloride 1,000 ml @ 125 mls/hr Q8H IV 04/21/17 22:30 04/22/17 16:09 DC 04/22/17 15:20 125 MLS/HR Ertapenem/Sodium Chloride (Invanz Iv/Nss Ad-Van 50ml) 50 ml @ 100 mls/hr TODAY@2230 IV 04/21/17 22:30 04/21/17 22:59 DC 04/21/17 23:03 100 MLS/HR Diphenhydramine HCl (Benadryl Inj) 25 mg Q6H PRN IV 04/21/17 22:30 05/21/17 22:29 04/21/17 23:01 25 MG Fluticasone Propionate 2 sprays 2 sprays DAILY NA 04/22/17 09:00 05/22/17 08:59 04/23/17 08:44 2 SPRAYS Potassium Chloride/Sodium Chloride (1/2 Nss + 20meq KCl 1000ml) 1,000 ml @ 100 mls/hr Q10H IV 04/22/17 16:30 05/22/17 16:29 04/23/17 02:00 100 MLS/HR Allopurinol 100 mg 100 mg DAILY PO 04/23/17 09:00 05/23/17 08:59 04/23/17 08:44 100 MG Phytonadione/ Sodium Chloride (Aqua-Mephyton Inj/Nss 50ml) 50.25 ml @ 100.5 mls/ hr 0830 ONCE IV 04/23/17 08:30 04/23/17 08:59 DC 04/23/17 08:39 100.5 MLS/HR Subjective Seems stable. His been no overt bleeding. She has been afebrile. Review of Systems: Constitutional: Negative for night sweats, or fever Eyes: Negative for event change of vision ENT: Negative for epistaxis, nasal discharge, sore throat, or deafness Cardiovascular: Negative for chest pain, palpitations, dizziness, diaphoresis Respiratory: Negative for new shortness of breath,hemoptysis, or purulent cough Gastrointestinal: Negative for diarrhea, hematemesis, melena, nausea, vomiting , or dyspepsia Integumentary (skin): Negative for rash or jaundice discoloration Genitourinary: Negative for urinary frequency, hematuria, or dysuria Neurological: Negative for weakness, seizure activity, headache, or dizziness Lymphatic/Hematologic: Negative for petechiae, bleeding or new adenopathy Musculoskeletal: Negative for new joint or back pain Allergic/Immunologic: Negative for unusual rash or pruritis. Vital Signs Vital Signs Past 12 Hours Date Time Temp Pulse Resp B/P Pulse Ox O2 Delivery O2 Flow Rate FiO2 04/23/17 09:32 36.5 88 20 110/75 95 Nasal Cannula 2.0 04/23/17 08:59 36.6 97 18 117/74 95 Nasal Cannula 2.0 04/23/17 08:00 90 Room Air 2.0 04/23/17 07:21 36.9 83 20 150/70 90 Room Air 04/23/17 04:57 37.0 101 18 148/81 94 2.0 04/23/17 04:00 Nasal Cannula 1.0 04/23/17 00:30 36.9 99 18 130/72 92 2.0 04/23/17 00:00 Nasal Cannula 1.0 Physical Exam Constitutional: vitals are stable. Obese pleasant female Eyes: Eyes are POLLO EOMI without conjuctival erythema or icterus. ENT: External examination was negative for masses. Neck: Negative for masses or palpable thyromegaly Respiratory: Lung sounds were generally clear bilaterally Cardiovascular: Heart was RRR without significant murmur, gallops aoe rubs Gastrointestinal: No palpable hepatic or splenomegaly. The abdomen was soft with normal bowel sounds. Lymphatic system: there was no palpable peripheral lymphadenopathy Musculoskeletal System: The musculoskeletal system seemed concordant with age. Skin: The skin was negative for jaundice. Neurologic exam: The exam was negative for any focal findings. Deep tendon reflexes were equal and symmetrical. Psychiatric exam: Was essentially negative with normal mood and effect. Breast exam: Not done Extremities: Negative for edema or erythema Laboratory Last 24 Hours Test 04/22/17 11:37 04/22/17 13:29 04/22/17 15:00 04/22/17 16:27 Bedside Glucose 88 mg/dl 91 mg/dl Fibrinogen 381 mg/dl Uric Acid 10.4 mg/dl Lactate Dehydrogenase 9119 U/L Troponin I < 0.015 ng/ml Immunoglobulin G 907.0 mg/dL Immunoglobulin A 195.0 mg/dL Immunoglobulin M 105.0 mg/dL Lactic Acid Level 3.7 mmol/L Test 04/22/17 20:29 04/22/17 22:00 04/23/17 06:07 04/23/17 07:26 Bedside Glucose 103 mg/dl 101 mg/dl Lactic Acid Level 3.9 mmol/L 3.8 mmol/L White Blood Count 53.22 K/uL Red Blood Count 3.99 M/uL Hemoglobin 11.5 g/dL Hematocrit 34.4 % Mean Corpuscular Volume 86.2 fL Mean Corpuscular Hemoglobin 28.8 pg Mean Corpuscular Hemoglobin Concent 33.4 g/dl RDW Standard Deviation 50.7 fL RDW Coefficient of Variation 15.9 % Platelet Count 34 K/uL Mean Platelet Volume 8.9 fL Nucleated RBC Absolute Count (auto) 0.62 K/uL Nucleated Red Blood Cells % 1.2 % Prothrombin Time 66.9 SECONDS Prothromb Time International Ratio 5.8 Sodium Level 141 mmol/L Potassium Level 4.3 mmol/L Chloride Level 111 mmol/L Carbon Dioxide Level 17 mmol/L Anion Gap 13.0 mmol/L Blood Urea Nitrogen 26 mg/dl Creatinine 1.60 mg/dl Est Creatinine Clear Calc Drug Dose 35.2 ml/min Estimated GFR () 36.2 Estimated GFR (Non- 31.2 BUN/Creatinine Ratio 15.9 Random Glucose 105 mg/dl Calcium Level 8.5 mg/dl Assessment & Plan Review of her peripheral smear does reflect lymphoid appearing cells. Some are with fairly large nucleoli. We should hopefully have some flow cytometric data to reflect on later today. I did receive a copy of the report of the CT the abdomen and pelvis done on April 21 that [facility]. The findings were that there is a staghorn calculus in the left renal pelvic region. Additional calculi are identified in the distended left renal calyces. Some of the calyces are surrounded by perinephric stranding into the left renal hilum raising the possibility of associated infection. There is localized left periaortic retroperitoneal adenopathy in the vicinity of the left renal pedicle. The right kidney is unremarkable. The liver, adrenals and pancreas, and spleen are unremarkable allowing for the lack of intravenous contrast. The liver demonstrates mild nonspecific hepatomegaly. The bowel gas pattern shows no obstruction of free air. There is no ascites. He was no colitis or diverticulitis identified. In the pelvis the appendix is normal. There is a midline, fat-containing, low abdominal ventral hernia measuring 7.5 cm in diameter just above the symphysis, there are small uterine fibroids containing gas small amount of calcification. The opacified urinary bladder is negative. There is a small subcutaneous soft tissue nodule in the right buttock most likely representing a sebaceous cyst. Impression then being left renal staghorn calculus with left pyelonephritis or renal carbuncle not excluded localized left periaortic retroperitoneal adenopathy in the vicinity of the left renal pedicle may also indicate infection and less likely renal neoplasm recommended clinical correlation follow -up. Mild hepatomegaly. Fat-containing lower abdominal ventral hernia. Small uterine fibroids. When I reviewed with her just how sick she was leading up to the emergency room visit in [place] she reviews with me that she was very sick. She was wondering whether in fact she would live. I have to think that they fall in her platelet number is not related to presumptive CLL but in fact she was probably septic and developed DIC which we are still seeing the residual of. The sequence of the following platelets is just not temporally concordant with CLL typically when the hemoglobin is also stable. She had been on oral antibiotics leading up to that which may then mask our current cultures. The further gap in her pro time and PTT could be indicative again DIC with this gapping representing or occurring on an already vitamin K deficient state due to the prior Coumadin. I understand vitamin K has been given today IV at 2-1/2 mg and I have suggested to the house staff of adding another 5 mg to this. If bleeding should occur then a platelet transfusion plus fresh frozen plasma would be warranted. Fortunately that's not been an issue at this point. Again we will regather insight into the presumptive lymphoproliferative lesion with flow cytometric data that may be available today.
[2017-04-23] MEDS ORDERED: PHYTONADIONE INJ 5 MG in SODIUM CHLORIDE 0.9% 50ML 50 ML IV ONE (11:45)
[2017-04-23 14:41] LABS: INR 3.4 (0.9-1.1); PROTHROMBIN TIME (PATIENT) 37.7 SECONDS (9.0-12.0)
[2017-04-23 15:03] LABS: MEAN CORPUSCULAR HGB CONC 32.9 g/dl (32-36); MEAN PLATELET VOLUME 8.3 fL (7.4-10.4); PLATELET COUNT 29 K/uL (130-400); WHITE BLOOD COUNT 55.72 K/uL (4.8-10.8)
[2017-04-23] MEDS ORDERED: ALBUTEROL 0.083% NEBU SOLN 3 ML VIAL INH STA (21:37)
[2017-04-23] MEDS: ERTAPENEM IV 1 GM in SODIUM CHLOR 0.9% AD-VAN 50ML 50 ML IV SCH (22:34)
--- NOTE | 2017-04-23 22:50 | DIAGNOSTIC IMAGING REPORT ---
SINGLE VIEW CHEST CLINICAL HISTORY: Dyspnea. FINDINGS: An AP, portable, upright chest radiograph is compared to study dated 04/22/2017. The examination is degraded by portable technique, large body habitus, and patient rotation. The heart is top normal for projection and there is atherosclerotic calcification of the thoracic aorta. The pulmonary vasculature is noncongested. Foci of linear atelectasis are present in both lungs. No airspace consolidation is identified typical for pneumonia and there is no large pleural effusion. No pneumothorax is seen. The skeletal structures are osteopenic. The bony thorax is grossly intact. IMPRESSION: No acute cardiopulmonary abnormality and no significant change from yesterday. Electronically signed by: Charlie Elmore M.D. 04/23/2017 10:49 PM Dictated Date/Time: 04/23/2017 10:47 PM
[2017-04-24] VITALS (7 sets, daily range): BP systolic 114–141; BP diastolic 72–76; PULSE 91–105; TEMP 36.4–36.8; O2SAT 90–95
[2017-04-24 06:01] LABS: INR 1.7 (0.9-1.1)
[2017-04-24 06:22] LABS: HEMATOCRIT 34.3 % (37-47); MEAN CELL VOLUME 85.3 fL (80-100); MEAN CORPUSCULAR HEMOGLOBIN 27.9 pg (25-34); MEAN CORPUSCULAR HGB CONC 32.7 g/dl (32-36); MEAN PLATELET VOLUME 9.3 fL (7.4-10.4); PLATELET COUNT 22 K/uL (130-400); RED BLOOD COUNT 4.02 M/uL (4.2-5.4); WHITE BLOOD COUNT 55.72 K/uL (4.8-10.8)
[2017-04-24 06:29] LABS: PLT ESTIMATE DECREASED
[2017-04-24 06:35] LABS: BUN/CREATININE RATIO 17.5 (10-20); CALCIUM 8.5 mg/dl (8.5-10.1); CREATININE 1.6 mg/dl (0.60-1.20); POTASSIUM 4.6 mmol/L (3.5-5.1)
--- NOTE | 2017-04-24 08:16 | Family Medicine Progress Note ---
Progress Note Date of Service April 24, 2017. Objective Vital Signs Date Time Temp Pulse Resp B/P Pulse Ox O2 Delivery O2 Flow Rate FiO2 04/24/17 07:10 36.4 96 16 141/75 90 Room Air 04/24/17 04:41 36.7 93 20 117/72 93 Room Air 04/24/17 04:00 Nasal Cannula 2.0 04/24/17 00:01 36.6 105 20 125/76 95 Nasal Cannula 2.0 04/24/17 00:00 95 Nasal Cannula 2.0 04/23/17 22:10 82 16 Nasal Cannula 2.0 04/23/17 21:05 87 116/70 04/23/17 20:00 96 Nasal Cannula 2.0 04/23/17 19:52 36.7 93 20 116/74 97 2.0 04/23/17 16:00 95 Room Air 2.0 04/23/17 14:58 36.4 86 18 119/77 95 2.0 04/23/17 12:16 36.4 88 18 117/76 94 04/23/17 12:00 94 Room Air 2.0 04/23/17 11:58 36.3 88 18 128/81 95 2.0 04/23/17 11:29 36.7 85 18 116/73 93 Nasal Cannula 1.0 04/23/17 09:32 36.5 88 20 110/75 95 Nasal Cannula 2.0 04/23/17 08:59 36.6 97 18 117/74 95 Nasal Cannula 2.0 Resident Tracking Resident Involvement: Resident Care Provided Care Provided: Adult Hospital Medicine
[2017-04-24] MEDS: ACETAMINOPHEN 325 MG TAB PO PRN (08:27)
[2017-04-24] MEDS: FLUTICASONE PROPIONATE NA SPR 16 GM BTL SCH (09:00)
[2017-04-24] MEDS: ALLOPURINOL 100 MG TAB PO SCH (09:00)
--- NOTE | 2017-04-24 10:24 | Hematology/Oncology Prog Note ---
Hematology/Onc Progress Note Date of Service April 24, 2017. 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 Medications Medications Administered Medications (Trade) Dose Ordered Sig/[place] Route Start Time Stop Time Status Last Admin Dose Admin Acetaminophen (Tylenol Tab) 650 mg Q4H PRN PO 04/21/17 22:00 05/21/17 21:59 04/24/17 08:27 650 MG Ondansetron HCl 4 mg 4 mg Q6H PRN IV 04/21/17 22:00 05/21/17 21:59 04/23/17 19:30 4 MG Ertapenem 1 gm/ Sodium Chloride 50 ml @ 120 mls/hr Q24H IV 04/22/17 22:00 05/01/17 21:59 04/23/17 22:34 120 MLS/HR Sodium Chloride 1,000 ml @ 125 mls/hr Q8H IV 04/21/17 22:30 04/22/17 16:09 DC 04/22/17 15:20 125 MLS/HR Ertapenem/Sodium Chloride (Invanz Iv/Nss Ad-Van 50ml) 50 ml @ 100 mls/hr TODAY@2230 IV 04/21/17 22:30 04/21/17 22:59 DC 04/21/17 23:03 100 MLS/HR Diphenhydramine HCl (Benadryl Inj) 25 mg Q6H PRN IV 04/21/17 22:30 05/21/17 22:29 04/21/17 23:01 25 MG Fluticasone Propionate 2 sprays 2 sprays DAILY NA 04/22/17 09:00 05/22/17 08:59 04/23/17 08:44 2 SPRAYS Potassium Chloride/Sodium Chloride (1/2 Nss + 20meq KCl 1000ml) 1,000 ml @ 100 mls/hr Q10H IV 04/22/17 16:30 04/23/17 19:47 DC 04/23/17 12:30 100 MLS/HR Allopurinol 100 mg 100 mg DAILY PO 04/23/17 09:00 05/23/17 08:59 04/23/17 08:44 100 MG Phytonadione 2.5 mg/Sodium Chloride 50.25 ml @ 100.5 mls/ hr 0830 ONCE IV 04/23/17 08:30 04/23/17 08:59 DC 04/23/17 08:39 100.5 MLS/HR Phytonadione/ Sodium Chloride (Aqua-Mephyton Inj/Nss 50ml) 50.5 ml @ 101 mls/hr 1145 ONCE IV 04/23/17 11:45 04/23/17 12:14 DC 04/23/17 11:50 101 MLS/HR Albuterol Sulfate (Ventolin 0.083% 2.5MG/3ML Neb) 2.5 mg NOW STAT INH 04/23/17 21:37 04/23/17 21:53 DC 04/23/17 22:10 2.5 MG Subjective Has shortness of breath during at night. Seems comfortable now. The nurse reflects with me also there was a supraventricular arrhythmia during the night that has settled down to a regular rate and rhythm now.. Review of Systems: Constitutional: Negative for night sweats, or fever Eyes: Negative for event change of vision ENT: Negative for epistaxis, nasal discharge, sore throat, or deafness Cardiovascular: Negative for chest pain, palpitations, dizziness, diaphoresis Respiratory: She had a. His shortness of breath during the night. Gastrointestinal: Negative for diarrhea, hematemesis, melena, nausea, vomiting , or dyspepsia Integumentary (skin): Negative for rash or jaundice discoloration Genitourinary: Negative for urinary frequency, hematuria, or dysuria Neurological: Negative for weakness, seizure activity, headache, or dizziness Lymphatic/Hematologic: Negative for petechiae, bleeding or new adenopathy Musculoskeletal: Negative for new joint or back pain Allergic/Immunologic: Negative for unusual rash or pruritis. Vital Signs Vital Signs Past 12 Hours Date Time Temp Pulse Resp B/P Pulse Ox O2 Delivery O2 Flow Rate FiO2 04/24/17 08:00 90 Nasal Cannula 2.0 04/24/17 07:10 36.4 96 16 141/75 90 Room Air 04/24/17 04:41 36.7 93 20 117/72 93 Room Air 04/24/17 04:00 Nasal Cannula 2.0 04/24/17 00:01 36.6 105 20 125/76 95 Nasal Cannula 2.0 04/24/17 00:00 95 Nasal Cannula 2.0 Physical Exam Constitutional: vitals are stable. Obese pleasant female. She looks comfortable. Family is with her today Eyes: Eyes are POLLO EOMI without conjuctival erythema or icterus. ENT: External examination was negative for masses. Neck: Negative for masses or palpable thyromegaly Respiratory: Lung sounds were generally clear bilaterally Cardiovascular: Heart was currently RRR without significant murmur, gallops aoe rubs Gastrointestinal: No palpable hepatic or splenomegaly. The abdomen was soft with normal bowel sounds. Lymphatic system: there was no palpable peripheral lymphadenopathy Musculoskeletal System: The musculoskeletal system seemed concordant with age. Skin: The skin was negative for jaundice. Neurologic exam: The exam was negative for any focal findings. Deep tendon reflexes were equal and symmetrical. Psychiatric exam: Was essentially negative with normal mood and effect. Breast exam: not done Extremities: Negative for edema or erythema Laboratory Last 24 Hours Test 04/23/17 11:11 04/23/17 14:15 04/23/17 16:50 04/23/17 20:22 Bedside Glucose 119 mg/dl 124 mg/dl 128 mg/dl White Blood Count 55.72 K/uL Red Blood Count 4.00 M/uL Hemoglobin 11.2 g/dL Hematocrit 34.0 % Mean Corpuscular Volume 85.0 fL Mean Corpuscular Hemoglobin 28.0 pg Mean Corpuscular Hemoglobin Concent 32.9 g/dl RDW Standard Deviation 50.6 fL RDW Coefficient of Variation 16.2 % Platelet Count 29 K/uL Mean Platelet Volume 8.3 fL Nucleated RBC Absolute Count (auto) 0.66 K/uL Nucleated Red Blood Cells % 1.2 % Prothrombin Time 37.7 SECONDS Prothromb Time International Ratio 3.4 Test 04/24/17 05:39 04/24/17 07:22 White Blood Count 55.72 K/uL Red Blood Count 4.02 M/uL Hemoglobin 11.2 g/dL Hematocrit 34.3 % Mean Corpuscular Volume 85.3 fL Mean Corpuscular Hemoglobin 27.9 pg Mean Corpuscular Hemoglobin Concent 32.7 g/dl RDW Standard Deviation 51.2 fL RDW Coefficient of Variation 16.4 % Platelet Count 22 K/uL Mean Platelet Volume 9.3 fL Nucleated RBC Absolute Count (auto) 0.83 K/uL Nucleated Red Blood Cells % 1.5 % Platelet Estimate DECREASED Prothrombin Time 19.0 SECONDS Prothromb Time International Ratio 1.7 Sodium Level 141 mmol/L Potassium Level 4.6 mmol/L Chloride Level 111 mmol/L Carbon Dioxide Level 18 mmol/L Anion Gap 12.0 mmol/L Blood Urea Nitrogen 28 mg/dl Creatinine 1.60 mg/dl Est Creatinine Clear Calc Drug Dose 35.2 ml/min Estimated GFR () 36.2 Estimated GFR (Non- 31.2 BUN/Creatinine Ratio 17.5 Random Glucose 118 mg/dl Uric Acid 11.3 mg/dl Calcium Level 8.5 mg/dl Lactate Dehydrogenase 70492 U/L Bedside Glucose 122 mg/dl Assessment & Plan I received a phone call yesterday from the pathologist this is a flow cytometric results are not consistent with CLL. CD19 and CD10 were positive. This is a kind of profile that would be consistent with perhaps a follicular lymphoma and/or a high-grade lymphoma. The cells that I see morphologically do not appear to be the typical sort of follicular lymphoma and I suspect then that she has a high-grade lesion. This of course that goes along with her clinical picture. LDH remains elevated at today's over 13,000. Uric acid is 11. Platelet count continues to drift down and it is just slightly above 20,000 now. With his current information I suspect that her treatment will be composed of rather intense induction therapy. She will need a bone marrow biopsy done as well as a port placed and echocardiogram and predictably rather vigorous support through this with blood products. She reviews with me that her last blood clot was in the 90s. Its debatable as to whether an IVC filter then would be necessary. Certainly she will not be able to be anticoagulated. Her PT and PTT of essentially corrected now. There has been no overt bleeding. I suspect with the above then she should be transferred to a tertiary center such as [facility]. We will begin place of phone calls to have that taken effect. This was reviewed with the patient and her family today and they understand. I also reviewed this with Dr. mann.
[2017-04-24] MEDS ORDERED: ALL100 PO (11:51)
--- NOTE | 2017-04-24 12:00 | Discharge Instructions ---
Discharge Instructions Date of Service April 24, 2017. 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 . Instructions / Follow-Up Instructions / Follow-Up Mrs. Perez is a 77 y/o female admitted to [facility] for failure of outpatient therapy for recurrent UTI in the setting of chronic staghorn canaliculi and chronic fatigue. She was being treated with ertapenem, urine cultures to be obtained from PCP. BCx in hospital have been negative x 48 hours. Her creatinine is gradually improving and we have been avoiding nephrotoxic medications where possible. During her stay, she was found to have significantly elevated WBC in the high 40s-50s and a gradually decreasing platelet count presently in the 20s. Hematology was consulted and high grade leukemia was noted on flow cytometry. Combined with her decreasing platelet count, hematology has recommended transition to a tertiary care facility for further evaluation. On the evening of 04.23, the patient experienced a symptomatic run of SVT which lasted seconds with subsequent wheezing which was improved with nebulizer treatment. A CXR done showed no acute changes. She is feeling somewhat SOB sympomatically relieved by O2 but is retaining her sats well. On presentation, her INR was 5, which increased to 5.8. She received 7.5mg IV vitamin K and her INR has reversed to 1.7 today. Her type 2 diabetes has been managed with ISS in hospital, holding her outpatient januvia She reports a significant fall history and would likely benefit from further PT evaluation. Please contact the hospitalist team with [facility] for any questions or concerns. Current Hospital Diet Patient's current hospital diet: Diabetes Type 2 Diet, AHA Diet (Heart Healthy) , Low Sodium Diet (2gm Na) Discharge Diet Recommended Diet: Diabetes Type 2 Diet Pending Studies Studies pending at discharge: yes (final flow cytometry) List of pending studies: Final flow cytometry Laboratory Results 04/24/17 05:39 04/24/17 05:39 Test 04/24/17 05:39 04/24/17 11:37 Red Blood Count 4.02 M/uL (4.2-5.4) Mean Corpuscular Volume 85.3 fL (80-100) Mean Corpuscular Hemoglobin 27.9 pg (25-34) Mean Corpuscular Hemoglobin Concent 32.7 g/dl (32-36) RDW Standard Deviation 51.2 fL (36.4-46.3) RDW Coefficient of Variation 16.4 % (11.5-14.5) Mean Platelet Volume 9.3 fL (7.4-10.4) Nucleated RBC Absolute Count (auto) 0.83 K/uL (0-0) Nucleated Red Blood Cells % 1.5 % Platelet Estimate DECREASED Prothrombin Time 19.0 SECONDS (9.0-12.0) Prothromb Time International Ratio 1.7 (0.9-1.1) Anion Gap 12.0 mmol/L (3-11) Est Creatinine Clear Calc Drug Dose 35.2 ml/min Estimated GFR () 36.2 Estimated GFR (Non- 31.2 BUN/Creatinine Ratio 17.5 (10-20) Uric Acid 11.3 mg/dl (2.6-7.2) Calcium Level 8.5 mg/dl (8.5-10.1) Lactate Dehydrogenase 03355 U/L (84-246) Bedside Glucose 136 mg/dl (70-90) Medical Emergencies . Who to Call and When: Medical Emergencies: If at any time you feel your situation is an emergency, please call 911 immediately. . Non-Emergent Contact Non-Emergency issues call your: Primary Care Provider . . "Provider Documentation" section prepared by Vik Ma. . VTE Core Measure Inpt VTE Proph given/why not?: SCD's
--- NOTE | 2017-04-24 19:19 | Discharge Summary ---
Discharge Summary Date of Service April 24, 2017. Discharge Summary Admission Date: April 21, 2017 at 20:56 Discharge Date: April 24, 2017 Discharge Disposition: Acute care facility Principal Diagnosis: High grade leukemia Problems/Secondary Diagnoses: Failed OP therapy UTI w/ staghorn canaliculi, DIC Consultations: UROLOGY, HEMATOLOGY Medication Reconciliation New Medications: Allopurinol (Allopurinol) 100 Mg Tab 100 MG PO DAILY for 30 Days, #30 TAB Discontinued Medications: Fluticasone Propionate (Nasal) (Flonase Allergy Relief) 50 Mcg/Act Spr 2 SPRAYS INTNAS DAILY Sitagliptin (Januvia) 100 Mg Tab 1 TAB PO DAILY for 30 Days, #30 TAB 5 Refills Valsartan (Diovan) 160 Mg Tab 1 TAB PO DAILY for 30 Days, #30 TAB 5 Refills Warfarin Sod (Coumadin) 2.5 Mg Tab 1 TAB PO 2XWK for 30 Days, TAB 3 Refills Warfarin Sodium (Coumadin) 5 Mg Tab 1 TAB PO 5XWK for 90 Days, TAB 1 Refill Discharge Exam Pt seen and examined at bedside. Overnight w/ short run of SVT which self terminated but was accompanied by mild SOB/wheezing which resolved following albuterol. This morning, feels mildly SOB and with persistent fatigue. Improvement in urinary symptoms and suprapubic discomfort. Reports no bruising or bleeding, nausea, lightheadedness, CP/palpitations. C. diff returned +ve from single loose stool (no further BM) Review of Systems: Constitutional: + fatigue, No chills, No fever Respiratory: + dyspnea at rest, + shortness of breath, No cough, No sputum, No wheezing Cardiovascular: No chest pain, No claudication, No palpitations Abdomen: No diarrhea, No nausea, No pain, No vomiting Hospital Course Mrs. Perez is a 77 y/o female admitted to [facility] for failure of outpatient therapy for recurrent UTI in the setting of chronic staghorn canaliculi and chronic fatigue. She was being treated with ertapenem, urine cultures to be obtained from PCP. BCx in hospital have been negative x 48 hours. Her creatinine is gradually improving and we have been avoiding nephrotoxic medications where possible. During her stay, she was found to have significantly elevated WBC in the high 40s-50s and a gradually decreasing platelet count presently in the 20s. Hematology was consulted and high grade leukemia was noted on flow cytometry. Combined with her decreasing platelet count, hematology has recommended transition to a tertiary care facility for further evaluation. On the evening of 04.23, the patient experienced a symptomatic run of SVT which lasted seconds with subsequent wheezing which was improved with nebulizer treatment. A CXR done showed no acute changes. She is feeling somewhat SOB sympomatically relieved by O2 but is retaining her sats well. On presentation, her INR was 5, which increased to 5.8. She received 7.5mg IV vitamin K and her INR has reversed to 1.7 today. Her C. diff returned positive after transfer. Her type 2 diabetes has been managed with ISS in hospital, holding her outpatient januvia She reports a significant fall history and would likely benefit from further PT evaluation. Please contact the hospitalist team with [facility] for any questions or concerns. Total Time Spent: Greater than 30 minutes This includes examination of the patient, discharge planning, medication reconciliation, and communication with other providers. Discharge Instructions Please refer to the electronic Patient Visit Report (Discharge Instructions) for additional information.
[2017-04-28 08:45] LABS: CYTOMEGALOVIRUS IGG AB >10.00 U/ML; EPSTEIN BARR VIR CAPSID IGG 2.72 INDEX
[2017-05-30] MEDS ORDERED: DTR/5 PO (13:47)
[2017-06-06] MEDS ORDERED: DFL100 PO (09:19)
[2017-06-06] MEDS ORDERED: ACYC-57 PO (09:19)
[2017-06-06] MEDS ORDERED: SULF800T23 PO (09:19)
[2017-06-21] MEDS ORDERED: FENT25DI10 TOP (08:45)
[2017-06-21] MEDS ORDERED: FNTTP50 TD (08:45)
[2017-06-21] MEDS ORDERED: [UNRECOGNIZED DRUG - OTHER] RE (08:45)
[2017-06-21] MEDS ORDERED: LIDO2SOL19 TOP (08:45)
[2017-06-21] MEDS ORDERED: MOML PO (08:45)
[2017-06-21] MEDS ORDERED: BISA1TAB15 PO (08:45)
[2017-06-21] MEDS ORDERED: MULT-506 PO (08:45)
[2017-06-21] MEDS ORDERED: OXYC1TAB3 PO (08:45)
[2017-06-21] MEDS ORDERED: PROCHLORPERAZINE PO (08:45)
[2017-06-21] MEDS ORDERED: SODIENE PR (08:45)
[2017-06-21] MEDS ORDERED: ACET-1256 PO (08:45)
[2017-06-21] MEDS ORDERED: LIDOCAINE PATCH TOP (08:45)
[2017-06-21] MEDS ORDERED: BACL1TAB PO (08:45)
[2017-06-21] MEDS ORDERED: NVLGI7030 SC (08:45)
[2017-06-21] MEDS ORDERED: LOSA1TAB38 PO (08:45)
[2017-06-21] MEDS ORDERED: PPTBS PO (08:45)
[2017-06-21] MEDS ORDERED: PRED-301 PO (08:45)
[2017-06-21] MEDS ORDERED: PANT40TA PO (08:45)
[2017-06-21] MEDS ORDERED: CALC500C3 PO (08:45)
[2017-06-21] MEDS ORDERED: DOCU100C31 PO (08:45)
[2017-07-01] MEDS ORDERED: POTTAB2 PO (16:02)
[2017-07-01] MEDS ORDERED: CMPS25 PR (16:02)
[2017-07-01] MEDS ORDERED: FLV1 PO (16:02)
[2017-07-01] MEDS ORDERED: LDDP5 TD (16:02)
[2017-07-01] MEDS ORDERED: MRN/25 PO (16:02)
[2017-07-01] MEDS ORDERED: BACL1TAB PO (16:02)
[2017-07-01] MEDS ORDERED: HYDR-5688 PO (16:02)
[2017-07-01] MEDS ORDERED: FENT25DI10 TOP (16:02)
[2017-07-01] MEDS ORDERED: ERTA1INJ IV (16:02)
[2017-07-01] MEDS ORDERED: NITR1CAP16 PO (16:03)
[2017-07-07] MEDS ORDERED: PRED50TA PO (00:27)
== END 2017-04-24 12:30 | disposition short-term general hospital (02) | DRG 841 ==
LOC: C.MED 20:56
PROVIDERS: ADMIT Family Medicine; ATTEND Family Medicine
DX: C91.10 Chronic lymphocytic leukemia of B-cell type not having achieved remission (principal); Z68.42 Body mass index [BMI] 45.0-49.9, adult; N39.0 Urinary tract infection, site not specified; N17.9 Acute kidney failure, unspecified; N20.0 Calculus of kidney; E66.9 Obesity, unspecified; D69.6 Thrombocytopenia, unspecified; D72.829 Elevated white blood cell count, unspecified; R51 Headache; N18.3 Chronic kidney disease, stage 3 (moderate); E11.9 Type 2 diabetes mellitus without complications; I10 Essential (primary) hypertension; Z91.81 History of falling

== ENCOUNTER → 2017-05-27 | Outpatient (CLI) | payer MEDICARE ==
[~2017-05-27] MED LIST changes: -ACYC-57 PO; +ACYC1CAP8 PO; -CMD/25 PO; -DTR/5 PO; -FLUT0.15 INTNAS; +OXYB5TAB74 PO; -SITA1TAB27 PO
[2017-05-27 09:45] LABS: HEMATOCRIT 25.9 % (37-47); MEAN CELL VOLUME 84.9 fL (80-100); MEAN CORPUSCULAR HEMOGLOBIN 28.9 pg (25-34); RED BLOOD COUNT 3.05 M/uL (4.2-5.4); WHITE BLOOD COUNT 3.52 K/uL (4.8-10.8)
[2017-05-27 10:01] LABS: ALT/SGPT 113 U/L (12-78); BLOOD UREA NITROGEN 21 mg/dl (7-18); CALCIUM 8.2 mg/dl (8.5-10.1); CARBON DIOXIDE 29 mmol/L (21-32); CHLORIDE 104 mmol/L (98-107); CREATININE 0.73 mg/dl (0.60-1.20); GLUCOSE 208 mg/dl (70-99); POTASSIUM 3.6 mmol/L (3.5-5.1); SODIUM 141 mmol/L (136-145)
[2017-05-27 10:04] LABS: ALB/GLOB RATIO 1.2 (0.9-2); ALKALINE PHOSPHATASE 124 U/L (45-117); AST/SGOT 27 U/L (15-37)
[2017-05-27 10:16] LABS: MEAN PLATELET VOLUME 9.8 fL (7.4-10.4); PLATELET COUNT 47 K/uL (130-400)
[2017-05-27 10:18] LABS: COMPLETE YES; IG% 5.4 %; LYMPH ABS # 0.21 K/uL (1.2-3.4); MONO % 0.3 %; NEUT % 88.3 %
== END | disposition home or self-care (01) ==
LOC: C.LABVPSUA 09:06
PROVIDERS: ATTEND Internal Medicine Critical Care Medicine
DX: C85.90 Non-Hodgkin lymphoma, unspecified, unspecified site (principal)

== ENCOUNTER 2017-05-30 11:59 | Inpatient (IN) | payer MEDICARE, OTHER ==
[~2017-05-30] VITALS: Ht 154.9 cm; Wt 108.0 kg
[2017-05-30] VITALS (12 sets, daily range): BP systolic 131–184; BP diastolic 74–90; PULSE 86–108; TEMP 36.8–37.8; O2SAT 92–95; BMI 46.4
[~2017-05-30 11:59] MED LIST changes: -ACET-1256 PO; -ACET325T96 PO; -ACYC1CAP8 PO; -ALLO100T PO; -BACL1TAB PO; -BIOT1CAP3 PO; -BISA10SU3 PR; -BISA1TAB15 PO; -BISM262S7 PO; -CALC500C3 PO; -CMPS25 PR; -DFL100 PO; -DICY20TA35 PO; -DOCU100C31 PO; -DVN/160 PO; -ERTA1INJ IV; -FENT25DI10 TOP; -FLUT0.15 NAE; -FLV1 PO; -FNTTP50 TD; -FURO-85 PO; -HEPA10IN13 IVF; -HYDR-5688 PO; -LDDP5 TD; -LIDO2SOL19 TOP; -LIDOCAINE PATCH TOP; -LOSA100T65 PO; -LOSA1TAB38 PO; -LRS20 PO; -MECL1TAB42 PO; -MOML PO; -MRN/25 PO; -MULT-506 PO; -MULT-513 PO; -NITR1CAP16 PO; -NSF10F IVF; -NVLGI7030 SC; -ONDA4TAB46 PO; -ONDA8TAB6 PO; -ONDA8TAB62 SL; -OXYB10TA PO; -OXYB5TAB74 PO; -OXYC-609 PO; -OXYC1TAB3 PO; -PANT40TA PO; -POLY335019 PO; -POTA20TA16 PO; -POTTAB2 PO; -PPTBS PO; -PRED-301 PO; -PRED50TA PO; -PROCHLORPERAZINE PO; -SENN-91 PO; -SITA100T3 PO; -SODIENE PR; -SULF800T23 PO; -VALS-58 PO; -VANC5CAP PO; -VNTHFA/IN INH; -WARF5TAB90 PO; -[UNRECOGNIZED DRUG - OTHER] RE
[2017-05-30] MEDS ORDERED: ACETAMINOPHEN 500 MG TAB PO STA (13:21)
[2017-05-30] MEDS ORDERED: ONDANSETRON INJ 2 MG/ML 2 ML VIAL IV STA (13:29)
[2017-05-30] MEDS ORDERED: LRS20 PO (13:47)
[2017-05-30] MEDS ORDERED: MRN/25 PO (13:47)
[2017-05-30] MEDS ORDERED: ONDA4TAB46 PO (13:47)
[2017-05-30] MEDS ORDERED: OXYB5TAB74 PO (13:47)
[2017-05-30] MEDS ORDERED: VNTHFA/IN INH (13:47)
[2017-05-30] MEDS ORDERED: VANC5CAP PO (13:47)
[2017-05-30] MEDS ORDERED: DVN/160 PO (13:47)
[2017-05-30] MEDS ORDERED: BIOT1CAP3 PO (13:47)
[2017-05-30] MEDS ORDERED: DICY20TA35 PO (13:47)
[2017-05-30] MEDS ORDERED: ALLO100T PO (13:47)
[2017-05-30] MEDS ORDERED: SENN-91 PO (13:47)
[2017-05-30] MEDS ORDERED: ACET325T96 PO (13:47)
[2017-05-30] MEDS ORDERED: SITA100T3 PO (13:47)
[2017-05-30] MEDS ORDERED: MECL1TAB42 PO (13:47)
[2017-05-30] MEDS ORDERED: BISM262S7 PO (13:47)
[2017-05-30] MEDS ORDERED: HYDR-5688 PO (13:47)
[2017-05-30] MEDS ORDERED: FURO-85 PO (13:47)
[2017-05-30] MEDS ORDERED: FLUT0.15 NAE (13:47)
[2017-05-30] MEDS ORDERED: POLY335019 PO (13:47)
--- NOTE | 2017-05-30 13:51 | DIAGNOSTIC IMAGING REPORT ---
CHEST ONE VIEW PORTABLE CLINICAL HISTORY: fever, r/o pneumonia COMPARISON STUDY: 04/23/2017 FINDINGS: Central catheter in superior vena cava. Minimal platelike atelectasis left base. Lungs otherwise appear clear. IMPRESSION: No acute process. Electronically signed by: Yoandy Nicolas M.D. 05/30/2017 1:49 PM Dictated Date/Time: 05/30/2017 1:49 PM
[2017-05-30] MEDS ORDERED: POTASSIUM CHLORIDE 10 MEQ / 100ML WTR IV STA (14:12)
[2017-05-30] MEDS ORDERED: CEFEPIME IV 2,000 MG in DEXTROSE 5% 100ML 100 ML IV STA (14:12)
[2017-05-30] MEDS ORDERED: SODIUM CHLORIDE 0.9% 500ML 500 ML IV STA (14:12)
[2017-05-30 14:20] LABS: INR 1.3 (0.9-1.1); PARTIAL THROMBOPLASTIN RATIO 1.2; PROTHROMBIN TIME (PATIENT) 13.8 SECONDS (9.0-12.0)
[2017-05-30 14:21] LABS: MEAN CELL VOLUME 83.7 fL (80-100); MEAN CORPUSCULAR HEMOGLOBIN 28.7 pg (25-34); MEAN CORPUSCULAR HGB CONC 34.3 g/dl (32-36); MEAN PLATELET VOLUME 10.6 fL (7.4-10.4); PLATELET COUNT 17 K/uL (130-400); RED BLOOD COUNT 2.51 M/uL (4.2-5.4); WHITE BLOOD COUNT 0.24 K/uL (4.8-10.8)
[2017-05-30 14:31] LABS: BUN/CREATININE RATIO 13.5 (10-20); CALCIUM 8.1 mg/dl (8.5-10.1); CREATININE 0.98 mg/dl (0.60-1.20); MAGNESIUM 1.5 mg/dl (1.8-2.4); POTASSIUM 2.7 mmol/L (3.5-5.1)
[2017-05-30 14:34] LABS: ALB/GLOB RATIO 0.9 (0.9-2)
[2017-05-30 14:37] LABS: COMPLETE YES; LYMPH % 79.2 %; LYMPH ABS # 0.19 K/uL (1.2-3.4); MONO % 16.7 %; NEUT % 4.1 %; PLT ESTIMATE SIGNIFIC DECREASED
[2017-05-30] MEDS ORDERED: VANCOMYCIN INJ 1,000 MG in SODIUM CHLORIDE 0.9% 250ML 250 ML IV STA (14:45)
[2017-05-30] MEDS ORDERED: VANCOMYCIN CONSULT ACTIVE PRN (15:00)
[2017-05-30] MEDS ORDERED: VANCOMYCIN INJ 2,800 MG in SODIUM CHLORIDE 0.9% 500ML 500 ML IV SCH (15:30)
[2017-05-30 15:32] LABS: URINE APPEARANCE CLOUDY (CLEAR); URINE BILIRUBIN NEG (NEG); URINE COLOR YELLOW; URINE EPITHELIAL CELL AUTO >30 /lpf (0-5); URINE NITRITE NEG (NEG); URINE PH 6.5 (4.5-7.5); URINE SPECIFIC GRAVITY 1.017 (1.000-1.030); UROBILINOGEN NEG (NEG)
[2017-05-30 15:36] LABS: MANUAL MICROSCOPIC REQUIRED? NO; REVIEW REQ? YES
[2017-05-30] MEDS ORDERED: BISMUTH SUBSALICYLATE SUSP PO PRN (16:00)
[2017-05-30] MEDS ORDERED: GLUCOSE 10 TABS/TUBE PO PRN (16:00)
[2017-05-30] MEDS ORDERED: DICYCLOMINE HCL 20 MG TAB PO PRN (16:00)
[2017-05-30] MEDS ORDERED: FLUTICASONE PROPIONATE NA SPR 16 GM BTL NAE PRN (16:00)
[2017-05-30] MEDS ORDERED: GLUCOSE 40% GEL 15 GM TUBE PO PRN (16:00)
[2017-05-30] MEDS ORDERED: GLUCAGON FOR INJ 1 MG VIAL SQ PRN (16:00)
[2017-05-30] MEDS ORDERED: ACETAMINOPHEN 325 MG TAB PO PRN (16:00)
[2017-05-30] MEDS ORDERED: DEXTROSE 50% 50 ML SYR IV PRN (16:00)
[2017-05-30] MEDS ORDERED: DOCUSATE SODIUM/SENNA 50/8.6MG TAB PO PRN (16:00)
[2017-05-30] MEDS ORDERED: ALBUTEROL HFA 8 GM INHALER INH PRN (16:00)
--- NOTE | 2017-05-30 16:26 | Pharmacy Progress Note ---
Pharmacy Abx Initial Consult Date of Service May 30, 2017. Pharmacy Dosing Scope Date of Consult: 05/30/17 Consultation requested by: Dr. Jeter Pharmacy is consulted to initiate IV Vancomycin therapy, order appropriate labs and adjust drug dose/frequency. Subjective The patient is a 77 year old female admitted on following the results of abnormal labs. Patient presented to the ER with pancytopenia (neutrophil count 10) along with fever of 38.3 C. Patient does have a h/o leukemia for which she received chemotherapy ~6 days ago. Of note, this patient has a h/o c diff as well as multi-drug resistant e coli UTI in the past as well as obstructing kidney stone that required stenting ~ 1 month ago. Objective Height (Feet): 5 Height (Inches): 1.00 Weight (Kilograms): 111.500 Vital Signs (Past 12Hrs) Vital Signs Past 12 Hours Date Time Temp Pulse Resp B/P (MAP) Pulse Ox O2 Delivery O2 Flow Rate FiO2 05/30/17 16:15 37.4 99 16 174/90 96 05/30/17 14:53 98 21 125/83 93 Room Air 05/30/17 14:00 107 17 159/75 95 Room Air 05/30/17 13:30 105 20 182/94 94 Room Air 05/30/17 13:00 100 22 205/84 95 Room Air 05/30/17 12:30 Room Air 05/30/17 12:30 93 Room Air 05/30/17 12:30 97 20 136/59 97 Room Air 05/30/17 12:18 103 05/30/17 12:12 38.3 102 15 120/70 94 Room Air Lab Results (24Hrs) Laboratory Tests (24 Hours) Test 05/30/17 13:59 Lactic Acid Level 2.1 mmol/L (0.4-2.0) *H White Blood Count 0.24 K/uL (4.8-10.8) *L Red Blood Count 2.51 M/uL (4.2-5.4) L Hemoglobin 7.2 g/dL (12.0-16.0) L Hematocrit 21.0 % (37-47) L Mean Corpuscular Volume 83.7 fL (80-100) Mean Corpuscular Hemoglobin 28.7 pg (25-34) Mean Corpuscular Hemoglobin Concent 34.3 g/dl (32-36) Platelet Count 17 K/uL (130-400) *L Mean Platelet Volume 10.6 fL (7.4-10.4) H Neutrophils (%) (Auto) 4.1 % Lymphocytes (%) (Auto) 79.2 % Monocytes (%) (Auto) 16.7 % Eosinophils (%) (Auto) 0.0 % Basophils (%) (Auto) 0.0 % Neutrophils # (Auto) 0.01 K/uL (1.4-6.5) *L Lymphocytes # (Auto) 0.19 K/uL (1.2-3.4) L Monocytes # (Auto) 0.04 K/uL (0.11-0.59) L Eosinophils # (Auto) 0.00 K/uL (0-0.5) Basophils # (Auto) 0.00 K/uL (0-0.2) Micro Results Date/Time Source Procedure Growth Status 05/30/17 15:25 Blood Blood Culture Pending Received 05/30/17 13:59 Blood Blood Culture Pending Received 05/30/17 14:50 Urine,Catheterized Urine Culture Pending Received Risk Factors for Resistance * Resident in a shelter or extended-care facility * Hospitalization for 48 hours or more within the past 90 days * Immunocompromised (chronic steroid therapy, chemotherapy, immunomodulators) * History of infection with a multidrug-resistant organism: e coli UTI 03/2017 * Antimicrobial use within the last 90 days Assessment & Plan Assessment 77 year old female admitted with febrile neutropenia. Potential sources of infxn: urine and GI suspected. Empiric abx therapy ordered by provider ( vancomycin + azithromycin + primaxin + vancomycin PO). Pharmacy consulted to dose vancomycin. Plan Vancomycin IV * Loading dose: 2800 mg (25 mg/kg) * Maintenance dose: 1400 mg IV (12.5 mg/kg) every 14 hours * Goal trough level for febrile neutropenia : 15 to 20 mcg/mL * No trough has been ordered yet as empiric therapy has been ordered for 48 hours only, but if therapy to continue beyond 48 hours a trough will be checked , ideally prior to the 4th maintenance dose Pharmacy will continue to follow and will adjust dose/frequency as necessary. Thank you.
[2017-05-30] MEDS: NSS + 20MEQ KCL 1000ML 1,000 ML IV SCH (17:16)
[2017-05-30] MEDS: HYDROCODONE/ACETAMOPHEN 5/325MG TAB PO PRN (17:16)
[2017-05-30] MEDS: VANCOMYCIN HCL 125 MG/2.5ML SOLN PO SCH ×2 (17:56→21:34)
[2017-05-30] MEDS: RASPBERRY SYRUP 5 ML UDP PO SCH ×2 (17:56→21:34)
[2017-05-30] MEDS ORDERED: FILGRASTIM 480 MCG/1.6 ML VIAL SC SCH (18:00)
[2017-05-30] MEDS: INSULIN ASPART 100 UNITS/ML 3 ML PEN SC SCH ×2 (18:01→22:07)
[2017-05-30] MEDS: ONDANSETRON INJ 2 MG/ML 2 ML VIAL IV PRN (20:06)
[2017-05-30] MEDS: MAGNESIUM SULFATE 1GM / D5W 1 GM in PREMIXED IN D5W 100 ML IV SCH ×2 (20:10→21:31)
--- NOTE | 2017-05-30 20:19 | EMERGENCY ROOM VISIT NOTE ---
History Report prepared by Porfirio: Alfredo Benavides Under the Supervision of: Dr. Fahad Aldrich M.D. First contact with patient: 14:01 Chief Complaint: ABNORMAL LABS Stated Complaint: ? low platelets History of Present Illness The patient is a 77 year old female with leukemia who presents to the Emergency Room for abnormal labs that were detected this morning. Per the patient's family , the patient has had 2 doses of chemotherapy so far, her last one being around 6 days ago. Today, she had lab work done at the [facility], which revealed a low blood count. Her white count was .18, her hemoglobin was 7, her platelet count was 13, and her potassium was 2.7. The patient's abnormal labs were sent here, and she was then sent here for admission and a blood transfusion. She has been running a low grade fever, and her hands are swollen, more-so the right hand, per the patient. The patient also notes swollen legs and feet. She adds that her ears have been hurting intermittently and she has had decreased urinary frequency. The patient denies any headaches, cough, abdominal pain, epistaxis, melena, or hematochezia. However, she has not had a bowel movement recently. Per the patient's family, the patient had a stent placed in her left kidney a month ago for a broken kidney stone which was obstructing. Source of History: patient, family Onset: Detected this morning Position: other (global - abnormal labs) Quality: other (Her white count was .18, her hemoglobin was 7, her platelet count was 13, and her potassium was 2.7.) Associated Symptoms: + urinary symptoms (decreased frequency), No headache, No cough, No abdominal pain, No melena, No hematochezia Note: Associated symptoms: Swollen hands, legs, feet. Ear pain intermittently. Has not had bowel movement recently. Denies epistaxis. Review of Systems See HPI for pertinent positives & negatives. A total of 10 systems reviewed and were otherwise negative. Past Medical & Surgical Medical Problems: (1) E-coli UTI (2) Leukocytosis (3) Neutropenic fever Family History No pertinent family history Social History Smoking Status: Never Smoker Drug Use: none Marital Status: Occupation Status: retired Current/Historical Medications Scheduled Allopurinol (Zyloprim), 200 MG PO DAILY Baclofen (Baclofen), 20 MG PO BID Biotin (Biotin), 5,000 MCG PO DAILY Dronabinol (Marinol), 2.5 MG PO AMPM Furosemide (Lasix), 20 MG PO DAILY Oxybutynin Chloride (Ditropan), 10 MG PO DAILY Sitagliptin Phosphate (Januvia), 100 MG PO DAILY Valsartan (Diovan), 160 MG PO DAILY Vancomycin Hcl (Vancomycin), 125 MG PO QID Scheduled PRN Acetaminophen Tab (Tylenol), 650 MG PO Q8 PRN for Mild Pain Albuterol Hfa (Ventolin Hfa), 2 PUFFS INH QID PRN for Wheezing Bismuth Subsalicylate (Pepto-Bismol), 15 ML PO QID PRN for Dyspepsia Dicyclomine Hcl (Bentyl), 20 MG PO QID PRN for BLOATING Fluticasone Propionate (Nasal) (Flonase Allergy Relief), 2 SPRAYS VIGNESH DAILY PRN for ALLERGIES Hydrocodone/Acetaminophen 5MG/325MG ([place] 5MG/325MG), 1 TABLET PO Q6 PRN for Severe Pain Meclizine Hcl (Meclizine Hcl), 1 TAB PO TID PRN for Dizziness or Vertigo Ondansetron Hcl (Zofran), 4 MG PO Q6 PRN for Nausea Polyethylene Glycol 3350 (Miralax), 17 GM PO DAILY PRN for Constipation Sennosides-Docusate Sodium (Senna S), 2 TABS PO BID PRN for Constipation Allergies Coded Allergies: Ciprofloxacin (Verified Allergy, Intermediate, RASH, 04/21/17) Phlebitis Penicillins (Verified Allergy, Mild, HIVES, 04/21/17) Physical Exam Vital Signs Date Time Temp Pulse Resp B/P (MAP) Pulse Ox O2 Delivery O2 Flow Rate FiO2 05/30/17 14:53 98 21 125/83 93 Room Air 05/30/17 14:00 107 17 159/75 95 Room Air 05/30/17 13:30 105 20 182/94 94 Room Air 05/30/17 13:00 100 22 205/84 95 Room Air 05/30/17 12:30 Room Air 05/30/17 12:30 93 Room Air 05/30/17 12:30 97 20 136/59 97 Room Air 05/30/17 12:18 103 05/30/17 12:12 38.3 102 15 120/70 94 Room Air Physical Exam Constitutional: Vital signs reviewed. Eyes: Pupils are equal round reactive to light. Conjunctiva are noninjected. ENT: Pharynx is clear without erythema or exudate. Mucous membranes are dry. Neck supple without meningeal signs. Respiratory: Clear to auscultation bilaterally. Breath sounds are equal bilaterally. Cardiovascular: Regular rate and rhythm. No rubs or gallops. GI: Soft, nondistended and nontender. Bowel sounds are present. Musculoskeletal: Swelling to hands and feet. Integumentary: No cyanosis. Neurological: The patient is awake and alert. No focal deficits. Psychiatric: Normal affect. Medical Decision & Procedures ER Provider Diagnostic Interpretation: X-ray results as stated below per interpretation by me and the radiologist: CHEST ONE VIEW PORTABLE CLINICAL HISTORY: fever, r/o pneumonia COMPARISON STUDY: 04/23/2017 FINDINGS: Central catheter in superior vena cava. Minimal platelike atelectasis left base. Lungs otherwise appear clear. IMPRESSION: No acute process. Electronically signed by: Yoandy Nicolas M.D. 05/30/2017 1:49 PM Dictated Date/Time: 05/30/2017 1:49 PM Laboratory Results 05/30/17 13:59 Red Blood Count 2.51, Mean Corpuscular Volume 83.7, Mean Corpuscular Hemoglobin 28.7, Mean Corpuscular Hemoglobin Concent 34.3, Mean Platelet Volume 10.6, Neutrophils (%) (Auto) 4.1, Lymphocytes (%) (Auto) 79.2, Monocytes (%) (Auto) 16.7, Eosinophils (%) (Auto) 0.0, Basophils (%) (Auto) 0.0, Neutrophils # (Auto ) 0.01, Lymphocytes # (Auto) 0.19, Monocytes # (Auto) 0.04, Eosinophils # (Auto ) 0.00, Basophils # (Auto) 0.00 05/30/17 13:59 Test 05/30/17 13:59 05/30/17 14:50 White Blood Count 0.24 K/uL (4.8-10.8) Red Blood Count 2.51 M/uL (4.2-5.4) Hemoglobin 7.2 g/dL (12.0-16.0) Hematocrit 21.0 % (37-47) Mean Corpuscular Volume 83.7 fL (80-100) Mean Corpuscular Hemoglobin 28.7 pg (25-34) Mean Corpuscular Hemoglobin Concent 34.3 g/dl (32-36) Platelet Count 17 K/uL (130-400) Mean Platelet Volume 10.6 fL (7.4-10.4) Neutrophils (%) (Auto) 4.1 % Lymphocytes (%) (Auto) 79.2 % Monocytes (%) (Auto) 16.7 % Eosinophils (%) (Auto) 0.0 % Basophils (%) (Auto) 0.0 % Neutrophils # (Auto) 0.01 K/uL (1.4-6.5) Lymphocytes # (Auto) 0.19 K/uL (1.2-3.4) Monocytes # (Auto) 0.04 K/uL (0.11-0.59) Eosinophils # (Auto) 0.00 K/uL (0-0.5) Basophils # (Auto) 0.00 K/uL (0-0.2) RDW Standard Deviation 43.1 fL (36.4-46.3) RDW Coefficient of Variation 14.1 % (11.5-14.5) Immature Granulocyte % (Auto) 0.0 % Immature Granulocyte # (Auto) 0.00 K/uL (0.00-0.02) Platelet Estimate SIGNIFIC DECREASED Red Blood Cell Morphology Unremarkable Prothrombin Time 13.8 SECONDS (9.0-12.0) Prothromb Time International Ratio 1.3 (0.9-1.1) Activated Partial Thromboplast Time 30.8 SECONDS (21.0-31.0) Partial Thromboplastin Ratio 1.2 Anion Gap 9.0 mmol/L (3-11) Est Creatinine Clear Calc Drug Dose 57.4 ml/min Estimated GFR () 65.4 Estimated GFR (Non- 56.4 BUN/Creatinine Ratio 13.5 (10-20) Calcium Level 8.1 mg/dl (8.5-10.1) Magnesium Level 1.5 mg/dl (1.8-2.4) Total Bilirubin 0.7 mg/dl (0.2-1) Aspartate Amino Transf (AST/SGOT) 4 U/L (15-37) Alanine Aminotransferase (ALT/SGPT) 35 U/L (12-78) Alkaline Phosphatase 97 U/L (45-117) Total Protein 5.0 gm/dl (6.4-8.2) Albumin 2.3 gm/dl (3.4-5.0) Globulin 2.7 gm/dl (2.5-4.0) Albumin/Globulin Ratio 0.9 (0.9-2) Procalcitonin 0.40 ng/ml (0-0.5) Urine Color YELLOW Urine Appearance CLOUDY (CLEAR) Urine pH 6.5 (4.5-7.5) Urine Specific Mcclellan 1.017 (1.000-1.030) Urine Protein 2+ (NEG) Urine Glucose (UA) 1+ (NEG) Urine Ketones NEG (NEG) Urine Occult Blood 2+ (NEG) Urine Nitrite NEG (NEG) Urine Bilirubin NEG (NEG) Urine Urobilinogen NEG (NEG) Urine Leukocyte Esterase NEG (NEG) Urine WBC (Auto) 5-10 /hpf (0-5) Urine RBC (Auto) 10-30 /hpf (0-4) Urine Hyaline Casts (Auto) 5-10 /lpf (0-5) Urine Epithelial Cells (Auto) >30 /lpf (0-5) Urine Bacteria (Auto) 4+ (NEG) Urine Renal Epithelial Cells 0-5 /lpf (0-5) Laboratory results as reviewed by me. Medications Administered Medications (Trade) Dose Ordered Sig/[place] Route Start Time Stop Time Status Last Admin Dose Admin Acetaminophen (Tylenol Tab) 1,000 mg NOW STAT PO 05/30/17 13:21 05/30/17 13:22 DC 05/30/17 13:51 1,000 MG Ondansetron HCl (Zofran Inj) 4 mg NOW STAT IV 05/30/17 13:29 05/30/17 13:31 DC 05/30/17 13:51 4 MG Heparin Sodium (Porcine) (Heparin 10 Unit/ ml 5 ml Flush) 5 ml STK-MED ONCE .ROUTE 05/30/17 13:50 05/30/17 13:51 DC 05/30/17 13:50 5 ML Potassium Chloride (Kcl 10 Meq / Wtr) 10 meq NOW STAT IV 05/30/17 14:12 05/30/17 14:13 DC 05/30/17 15:35 10 MEQ Cefepime HCl 2000 mg/Dextrose 112.5 ml @ 200 mls/hr NOW STAT IV 05/30/17 14:12 05/30/17 14:45 DC 05/30/17 15:35 200 MLS/HR Sodium Chloride 500 ml @ 999 mls/hr Q31M STAT IV 05/30/17 14:12 05/30/17 14:42 DC 05/30/17 14:12 999 MLS/HR Vancomycin HCl 2800 mg/Sodium Chloride 556 ml @ 200 mls/hr 1530 IV 05/30/17 15:30 05/30/17 18:17 DC 05/30/17 15:58 200 MLS/HR ECG Indication: other (sepsis) Rate (beats per minute): 97 Rhythm: sinus rhythm Findings: no ectopy, other (ST T-wave changes in septal and anterior leads) ED Course 1403: The patient was evaluated in room A2. A complete history and physical exam was performed. 1412: Ordered NSS 500 ml @ 999 mls/hr IV, Cefepime HCl 2000 mg/Dextrose 112.5 ml @ 200 mls/hr IV, Kcl 10 Meq / Wtr 10 meq IV. 1435: I reevaluated the patient and we are still trying to get another blood culture. We will page Giuseppe Ellis. The patient verbally expressed understanding and agreement of the treatment plan. The patient will be evaluated for further treatment. 1515: I discussed the patient with Dr. Jeter - [facility] [place] - he will evaluate the patient for further treatment. Medical Decision This is a 77-year-old female presents with fever and abnormal labs. Differential diagnosis includes neutropenic, sepsis, pneumonia, UTI, thrombocytopenia. I did perform a limited focused review of portions of the patient's old chart on the electronic medical record. The patient was admitted April 21 for high grade leukemia and DIC. Blood Pressure Screening: Patient was found to have normal blood pressure on screening and does not require follow-up. Medication Reconciliation: I attest that I have personally reviewed the patient' s current medication list. I did evaluate the patient as noted above. The patient's port was accessed. The patient was placed on a continuous quality assurance monitor. I did personally review the patient's 12-lead EKG and chest x-ray as described above. I did review the patient's blood work as noted in the electronic medical record. She is neutropenic. She is anemic and has thrombocytopenia as well. Lactic acid is elevated. She is hypokalemic. I did order IV potassium. She is also given normal saline IV. A type and screen was ordered. Blood cultures were obtained. A cath urine was obtained as well. I did treat her with 2 g of cefepime IV. I did discuss the test results with the family. I did discuss case with the hospitalist and shelter case manager for admission. Consults Time Called: 1500 Consulting Physician: Dr. Steffany ARREDONDO emergency medical technician Returned Call: 1515 (in person) I discussed the patient with Dr. Steffany ARREDONDO emergency medical technician - he will evaluate the patient for further treatment. Impression Primary Impression: Sepsis Additional Impressions: UTI (urinary tract infection) Neutropenia Hypokalemia Pancytopenia Scribe Attestation The scribe's documentation has been prepared under my direct and personally reviewed by me in its entirety. I confirm that the note above accurately reflects all work, treatment, procedures, and medical decision making performed by me. Departure Information Dispostion Being Evaluated By Hospitalist Referrals [facility] (PCP) Patient Instructions My [facility] Problem Qualifiers Primary Impression: Sepsis Sepsis type: sepsis due to unspecified organism Qualified Codes: A41.9 - Sepsis, unspecified organism Additional Impressions: UTI (urinary tract infection) Urinary tract infection type: site unspecified Neutropenia Neutropenia type: secondary to cancer chemotherapy Qualified Codes: D70.1 - Agranulocytosis secondary to cancer chemotherapy
[2017-05-30] MEDS: BACLOFEN TAB 20 MG TAB PO SCH (22:07)
[2017-05-30] MEDS: DRONABINOL 2.5 MG CAP PO SCH (22:07)
[2017-05-30] MEDS: IMIPENEM/CILASTATIN IV 500 MG in DEXTROSE 5% 100ML 100 ML IV SCH (22:52)
[2017-05-31] VITALS (10 sets, daily range): BP systolic 133–166; BP diastolic 72–83; PULSE 80–99; TEMP 36.7–37.5; O2SAT 92–97; BMI 45.2
[2017-05-31] MEDS: POTASSIUM CHLR 10 MEQ / WTR 10 MEQ in PREMIXED WATER 100 ML IV SCH ×4 (00:10→04:43)
[2017-05-31] MEDS: AZITHROMYCIN IV 500 MG in DEXTROSE 5% 250ML 250 ML IV SCH ×2 (00:18→20:02)
[2017-05-31] MEDS: IMIPENEM/CILASTATIN IV 500 MG in DEXTROSE 5% 100ML 100 ML IV SCH ×5 (00:43→23:41)
[2017-05-31] MEDS: ONDANSETRON INJ 2 MG/ML 2 ML VIAL IV PRN ×4 (02:42→20:38)
[2017-05-31] MEDS: HYDROCODONE/ACETAMOPHEN 5/325MG TAB PO PRN (03:03)
[2017-05-31] MEDS: NSS + 20MEQ KCL 1000ML 1,000 ML IV SCH ×3 (03:08→22:54)
--- NOTE | 2017-05-31 07:32 | History and Physical ---
History & Physical Date & Time of Service: May 31, 2017 at 07:11 Chief Complaint: Neutropenic Fever Primary Care Physician: Lucio Gan [place] History of Present Illness Source: patient The patient is a 77-year-old female with leukemia, who has had 2 doses of chemotherapy so far, with most recent being 6 days ago. She had lab work performed at the [facility], which showed neutropenia, and the patient was sent to the emergency department for admission. She has been running a low-grade temperature,is fatigued, her right hand is more swollen than her left, and she has swollen legs and feet. Her family reports that she's had decreased oral intake, and she's had decreased urinary frequency as well. She is status post stent placement in the left kidney 1 month ago due to an obstructing kidney stone. Family History No pertinent family history Social History Smoking Status: Never Smoker Smokeless Tobacco Use: No Alcohol Use: none Drug Use: none Marital Status: Housing status: lives with family Occupational Status: retired Multi-Drug Resistant Organisms History of MDRO: No Allergies Coded Allergies: Ciprofloxacin (Verified Allergy, Intermediate, RASH, 04/21/17) Phlebitis Penicillins (Verified Allergy, Mild, HIVES, 04/21/17) Home Medications Scheduled Allopurinol (Zyloprim), 200 MG PO DAILY Baclofen (Baclofen), 20 MG PO BID Biotin (Biotin), 5,000 MCG PO DAILY Dronabinol (Marinol), 2.5 MG PO AMPM Furosemide (Lasix), 20 MG PO DAILY Oxybutynin Chloride (Ditropan), 10 MG PO DAILY Sitagliptin Phosphate (Januvia), 100 MG PO DAILY Valsartan (Diovan), 160 MG PO DAILY Vancomycin Hcl (Vancomycin), 125 MG PO QID Scheduled PRN Acetaminophen Tab (Tylenol), 650 MG PO Q8 PRN for Mild Pain Albuterol Hfa (Ventolin Hfa), 2 PUFFS INH QID PRN for Wheezing Bismuth Subsalicylate (Pepto-Bismol), 15 ML PO QID PRN for Dyspepsia Dicyclomine Hcl (Bentyl), 20 MG PO QID PRN for BLOATING Fluticasone Propionate (Nasal) (Flonase Allergy Relief), 2 SPRAYS VIGNESH DAILY PRN for ALLERGIES Hydrocodone/Acetaminophen 5MG/325MG ([place] 5MG/325MG), 1 TABLET PO Q6 PRN for Severe Pain Meclizine Hcl (Meclizine Hcl), 1 TAB PO TID PRN for Dizziness or Vertigo Ondansetron Hcl (Zofran), 4 MG PO Q6 PRN for Nausea Polyethylene Glycol 3350 (Miralax), 17 GM PO DAILY PRN for Constipation Sennosides-Docusate Sodium (Senna S), 2 TABS PO BID PRN for Constipation Review of Systems The patient denies chest pain, palpitations, shortness of breath, cough, sore throat, chills, sweats, vomiting, blood in urine or stool, dysuria, lightheadedness, dizziness, headache, rash, abnormal bleeding, focal weakness, numbness or tingling in arms or legs, arthralgias or myalgias, back or neck pain , night sweats. The review of systems is otherwise negative other than for that already noted above, and at least 10 systems have been reviewed. Physical Exam Vital Signs Date Time Temp Pulse Resp B/P (MAP) Pulse Ox O2 Delivery O2 Flow Rate FiO2 05/31/17 06:45 36.9 80 16 144/83 94 05/31/17 05:45 36.9 94 16 146/76 94 05/31/17 05:30 36.9 87 18 146/76 94 05/31/17 05:18 36.9 98 18 145/72 93 05/31/17 04:50 36.9 95 16 166/74 92 05/31/17 00:52 37.5 05/31/17 00:00 Room Air 05/30/17 23:58 37.8 108 16 145/74 95 05/30/17 23:20 36.8 102 16 184/84 93 05/30/17 22:50 36.8 104 16 181/85 93 05/30/17 22:35 37.1 106 16 181/83 94 05/30/17 22:22 37.3 104 16 180/83 94 2.0 05/30/17 21:50 37.0 100 16 163/82 92 05/30/17 21:35 36.9 96 16 156/90 94 05/30/17 21:20 36.9 98 16 154/81 94 05/30/17 21:15 36.9 98 16 151/81 94 0.0 05/30/17 20:00 Room Air 05/30/17 19:24 36.8 86 20 144/80 (101) 94 Room Air 05/30/17 18:19 37.6 92 16 131/79 95 Room Air 05/30/17 16:57 37.6 92 16 131/79 (96) 95 Room Air 05/30/17 16:15 37.4 99 16 174/90 96 05/30/17 14:53 98 21 125/83 93 Room Air 05/30/17 14:00 107 17 159/75 95 Room Air 05/30/17 13:30 105 20 182/94 94 Room Air 05/30/17 13:00 100 22 205/84 95 Room Air 05/30/17 12:30 Room Air 05/30/17 12:30 93 Room Air 05/30/17 12:30 97 20 136/59 97 Room Air 05/30/17 12:18 103 05/30/17 12:12 38.3 102 15 120/70 94 Room Air The patient is awake, alert and oriented 3, normocephalic and atraumatic, looks fatigued, lying in bed and in no acute distress. HEENT--PERRL, EOMI, mucous membranes and oropharynx dry. Neck--supple, no JVD or bruits, thyroid normal, trachea midline, no adenopathy. Heart--normal S1 and S2, no extra beats, no murmurs, rubs or gallops. Lungs--clear bilaterally, but diminished throughout, no respiratory distress, no accessory muscle use. Abdomen--normal bowel sounds and soft, nontender and nondistended, no hernias or masses, no organomegaly, and obese. Extremities--no cyanosis, clubbing or edema. There are good distal pulses b/l. Lymphedema noted. Dermatologic--normal skin turgor, normal color, warm and dry, no abnormal lymph nodes, no rash. Neurologic--cranial nerves II through XII grossly intact. Rheumatologic--normal range of motion, nontender, muscles and joints. Psychiatric--normal affect. Diagnostics Laboratory Results Results Past 24 Hours Test 05/30/17 13:59 05/30/17 14:50 05/30/17 17:12 05/30/17 17:49 Range/Units White Blood Count 0.24 4.8-10.8 K/uL Red Blood Count 2.51 4.2-5.4 M/uL Hemoglobin 7.2 12.0-16.0 g/dL Hematocrit 21.0 37-47 % Mean Corpuscular Volume 83.7 80-100 fL Mean Corpuscular Hemoglobin 28.7 25-34 pg Mean Corpuscular Hemoglobin Concent 34.3 32-36 g/dl Platelet Count 17 130-400 K/uL Mean Platelet Volume 10.6 7.4-10.4 fL Neutrophils (%) (Auto) 4.1 % Lymphocytes (%) (Auto) 79.2 % Monocytes (%) (Auto) 16.7 % Eosinophils (%) (Auto) 0.0 % Basophils (%) (Auto) 0.0 % Neutrophils # (Auto) 0.01 1.4-6.5 K/uL Lymphocytes # (Auto) 0.19 1.2-3.4 K/uL Monocytes # (Auto) 0.04 0.11-0.59 K/uL Eosinophils # (Auto) 0.00 0-0.5 K/uL Basophils # (Auto) 0.00 0-0.2 K/uL RDW Standard Deviation 43.1 36.4-46.3 fL RDW Coefficient of Variation 14.1 11.5-14.5 % Immature Granulocyte % (Auto) 0.0 % Immature Granulocyte # (Auto) 0.00 0.00-0.02 K/uL Platelet Estimate SIGNIFIC DECREASED Red Blood Cell Morphology Unremarkable Prothrombin Time 13.8 9.0-12.0 SECONDS Prothromb Time International Ratio 1.3 0.9-1.1 Activated Partial Thromboplast Time 30.8 21.0-31.0 SECONDS Partial Thromboplastin Ratio 1.2 Sodium Level 141 136-145 mmol/L Potassium Level 2.7 3.5-5.1 mmol/L Chloride Level 101 98-107 mmol/L Carbon Dioxide Level 31 21-32 mmol/L Anion Gap 9.0 3-11 mmol/L Blood Urea Nitrogen 13 7-18 mg/dl Creatinine 0.98 0.60-1.20 mg/dl Est Creatinine Clear Calc Drug Dose 57.4 ml/min Estimated GFR () 65.4 Estimated GFR (Non- 56.4 BUN/Creatinine Ratio 13.5 10-20 Random Glucose 215 70-99 mg/dl Lactic Acid Level 2.1 1.2 0.4-2.0 mmol/L Calcium Level 8.1 8.5-10.1 mg/dl Magnesium Level 1.5 1.8-2.4 mg/dl Total Bilirubin 0.7 0.2-1 mg/dl Aspartate Amino Transf (AST/SGOT) 4 15-37 U/L Alanine Aminotransferase (ALT/SGPT) 35 12-78 U/L Alkaline Phosphatase 97 45-117 U/L Total Protein 5.0 6.4-8.2 gm/dl Albumin 2.3 3.4-5.0 gm/dl Globulin 2.7 2.5-4.0 gm/dl Albumin/Globulin Ratio 0.9 0.9-2 Procalcitonin 0.40 0-0.5 ng/ml Urine Color YELLOW Urine Appearance CLOUDY CLEAR Urine pH 6.5 4.5-7.5 Urine Specific [place] 1.017 1.000-1.030 Urine Protein 2+ NEG Urine Glucose (UA) 1+ NEG Urine Ketones NEG NEG Urine Occult Blood 2+ NEG Urine Nitrite NEG NEG Urine Bilirubin NEG NEG Urine Urobilinogen NEG NEG Urine Leukocyte Esterase NEG NEG Urine WBC (Auto) 5-10 0-5 /hpf Urine RBC (Auto) 10-30 0-4 /hpf Urine Hyaline Casts (Auto) 5-10 0-5 /lpf Urine Epithelial Cells (Auto) >30 0-5 /lpf Urine Bacteria (Auto) 4+ NEG Urine Renal Epithelial Cells 0-5 0-5 /lpf Bedside Glucose 228 70-90 mg/dl Test 05/30/17 20:24 05/31/17 04:44 Range/Units Bedside Glucose 176 70-90 mg/dl Microbiology Results 05/30/17 Blood Culture, Received Pending 05/30/17 Blood Culture, Received Pending 05/30/17 MRSA DNA Surveillance Screen - Final, Complete Specimen Negative for MRSA by DNA Probe 05/30/17 Urine Culture, Received Pending Diagnostic Radiology Patient Name: VILMA NASH Unit Number: [id number] Dictated: 05/30/17 1349 Transcribed: 05/30/17 1349 MS Printed Date/Time: [~ rep prt dt]/[~ rep prt tm] [~ rep ct labl] - [~ rep ct ivnm] [facility] [place] [address] Dictated: 05/30/17 1349 Transcribed: 05/30/17 1349 MS Printed Date/Time: [~ rep prt dt]/[~ rep prt tm] [~ rep ct labl] - [~ rep ct ivnm] [~ rep ct add3]] [facility] PORTABLE CLINICAL HISTORY: fever, r/o pneumonia COMPARISON STUDY: 04/23/2017 FINDINGS: Central catheter in superior vena cava. Minimal platelike atelectasis left base. Lungs otherwise appear clear. IMPRESSION: No acute process. Electronically signed by: Yoandy Nicolas M.D. 05/30/2017 1:49 PM Dictated Date/Time: 05/30/2017 1:49 PM The status of this report is Signed. Draft = Not yet reviewed or approved by Radiologist. Signed = Reviewed and approved by Radiologist. <AttendingPhy></AttendingPhy> <FamilyPhy>[facility]</FamilyPhy> < PrimaryPhy>[facility]</PrimaryPhy> <UnitNumber>[id number]</UnitNumber > <VisitNumber>[id number]</VisitNumber> <PatientName>VILMA NASH</ PatientName> <DateOfBirth>1940</DateOfBirth> <Location>[facility]</Location> < ServiceDate>05/30/17</ServiceDate> <MNE>ESINDI</MNE> <OrderingPhy>ED, PROTOCOL</ OrderingPhy> <OrderingPhyMNE>f rep ord dr stern</OrderingPhyMNE> <DictatingPhyMNE> f rep dict dr stern</DictatingPhyMNE> <CCListMNE>f rep ct reillye</CCListMNE> < AdmittingPhyMNE>f pt admit dr stern</AdmittingPhyMNE> <AttendingPhyMNE>f pt attend dr stern</AttendingPhyMNE> <ConsultingPhyMNE>f pt consult dr stern</ConsultingPhyMNE> <FamilyPhyMNE>f pt fam dr stern</FamilyPhyMNE> <OtherPhyMNE>f pt other dr stern</OtherPhyMNE> < PrimaryPhyMNE>f pt prim care dr stern</PrimaryPhyMNE> <ReferringPhyMNE>f pt referring dr stern</ReferringPhyMNE> Impression Assessment and Plan Neutropenic fever with history of recent urinary tract infection and stent placement--patient be admitted. We placed on vancomycin IV, Primaxin IV and azithromycin IV. She is allergic to ciprofloxacin and penicillins. We'll follow urine cultures and sensitivities. Hydrate with IV fluids. Neutropenia--Neupogen 480 g subcutaneous 1 today. We'll transfuse 1 unit of packed red blood cells, and 2 units of platelets. We'll follow serial laboratories. We'll consult hematology. Electrolyte abnormalities/hypokalemia/hypomagnesemia--we'll give 4 K riders, and magnesium 2 g IV. Follow serial laboratories. Diabetes mellitus--hold Januvia. Placement Accu-Cheks before meals and at bedtime with NovoLog coverage. C. difficile history--continue vancomycin 125 mg by mouth 4 times a day. Hypertension--hold furosemide 20 mg by mouth daily and valsartan 160 mg by mouth daily. Gout--continue allopurinol 200 mg by mouth daily. Appetite stimulant-- continue Marinol 2.5 mg by mouth twice a day. Level of Care Med/Surg Advanced Directives Existing Advance Directive: No Existing Living Will: No Existing Power of Brass Pourer: No Resuscitation Status FULL RESUSCITATION VTE Prophylaxis VTE Risk Assessment Done? Y/N: Yes Risk Level: Moderate Given or contraindicated: SCD's Social Service Consult Cancer Patient Under [place]
[2017-05-31] MEDS: RASPBERRY SYRUP 5 ML UDP PO SCH ×4 (07:52→20:00)
[2017-05-31] MEDS: VANCOMYCIN HCL 125 MG/2.5ML SOLN PO SCH ×4 (07:52→20:00)
[2017-05-31] MEDS: OXYBUTYNIN CHLORIDE 5 MG TAB PO SCH (07:53)
[2017-05-31] MEDS: ALLOPURINOL 100 MG TAB PO SCH (07:53)
[2017-05-31] MEDS: BACLOFEN TAB 20 MG TAB PO SCH ×3 (07:53→20:38)
[2017-05-31] MEDS ORDERED: NON-FORMULARY MEDICATION (Biotin 5,000 MCG) PO SCH (08:00)
[2017-05-31] MEDS: VANCOMYCIN INJ 1,400 MG in SODIUM CHLORIDE 0.9% 500ML 500 ML IV SCH ×2 (08:04→20:02)
[2017-05-31] MEDS: DRONABINOL 2.5 MG CAP PO SCH ×2 (08:05→20:38)
[2017-05-31] MEDS: INSULIN ASPART 100 UNITS/ML 3 ML PEN SC SCH ×4 (08:16→20:59)
--- NOTE | 2017-05-31 08:18 | Hospitalist Progress Note ---
Hospitalist Progress Note Date of Service May 31, 2017. (Tamie Franklin PA-C) Subjective Pt evaluation today including: conversation w/ patient, conversation w/ family , physical exam, chart review, lab review, review of studies PO Intake: Poor Voiding: no voiding problems The patient was seen and examined this morning. Pt reports not feeling well. Her family including sister, brother and granddaughter are present at bedside. She has an extensive medical history in the past month being at [facility] for the majority of April, and just recently being discharged to the [facility]. Initially the patient was seen here at [facility] and found to have a large left sided staghorn calculi, so was transferred to [facility] for surgical consultation. 04/21/17 a ureteral stent was placed, which is still there. While there the patient developed acute respiratory distress which was considered to be secondary to chemotherapy, but was then found to have a new onset PE, with a hx of chronic DVT in E, so IVC filter was placed. She is no longer on coumadin. She had her first chemotherapy for newly diagnosed Large B cell lymphoma from 04/28-05/02 with dose adjusted E-POCH along with intrathecal methotrexate injection. A [place]ain tunnelled catheter was placed during her stay. Her second cycle of chemotherapy was with R-CHOP on 05/19. She was discharged to the [facility] on 05/20. She presented with febrile neutropenia with Tmax of 38.3 at time of admission, which appears to be due to urinary tract infection with E.coli growing in urine culture. She feels lowsey today, and is very tired. Along with this she is extremely nauseous, and hasn't eaten "in days", she cannot recall her last BM. The patient is pleasant, and answers all my questions appropriately. She at one points states, I do not want any more chemotherapy, I'm just starting to feel a little better now. She denies dysuria or hematuria, but does not know the color of her urine. She denies chest pain, shortness of breath, cough. Additional Comments: ROS: 6 point ROS reviewed and negative. (Tamie Franklin PA-C) Objective Vital Signs Date Time Temp Pulse Resp B/P (MAP) Pulse Ox O2 Delivery O2 Flow Rate FiO2 05/31/17 07:42 36.7 85 18 143/79 96 05/31/17 06:45 36.9 80 16 144/83 94 05/31/17 05:45 36.9 94 16 146/76 94 05/31/17 05:30 36.9 87 18 146/76 94 05/31/17 05:18 36.9 98 18 145/72 93 05/31/17 04:50 36.9 95 16 166/74 92 05/31/17 00:52 37.5 05/31/17 00:00 Room Air 05/30/17 23:58 37.8 108 16 145/74 95 05/30/17 23:20 36.8 102 16 184/84 93 05/30/17 22:50 36.8 104 16 181/85 93 05/30/17 22:35 37.1 106 16 181/83 94 05/30/17 22:22 37.3 104 16 180/83 94 2.0 05/30/17 21:50 37.0 100 16 163/82 92 05/30/17 21:35 36.9 96 16 156/90 94 05/30/17 21:20 36.9 98 16 154/81 94 05/30/17 21:15 36.9 98 16 151/81 94 0.0 05/30/17 20:00 Room Air 05/30/17 19:24 36.8 86 20 144/80 (101) 94 Room Air 05/30/17 18:19 37.6 92 16 131/79 95 Room Air 05/30/17 16:57 37.6 92 16 131/79 (96) 95 Room Air 05/30/17 16:15 37.4 99 16 174/90 96 05/30/17 14:53 98 21 125/83 93 Room Air 05/30/17 14:00 107 17 159/75 95 Room Air 05/30/17 13:30 105 20 182/94 94 Room Air 05/30/17 13:00 100 22 205/84 95 Room Air 05/30/17 12:30 Room Air 05/30/17 12:30 93 Room Air 05/30/17 12:30 97 20 136/59 97 Room Air 05/30/17 12:18 103 05/30/17 12:12 38.3 102 15 120/70 94 Room Air (Tamie Franklin PA-C) Physical Exam General Appearance: WD/WN, no apparent distress, + obese Eyes: PERRL, EOMI ENT: hearing grossly normal, pharynx normal, + pertinent finding (+apthous ulcers on buccal mucosa near posterior molars.) Neck: supple, no JVD Respiratory/Chest: chest non-tender, no respiratory distress, no accessory muscle use, + pertinent finding (On 2 L via NC, diminished breath sounds throughout, no crackles, wheezing or rales) Cardiovascular: regular rate, rhythm, no murmur Abdomen: non tender, soft, + pertinent finding (hypoactive bowel sounds) Extremities: non-tender, no calf tenderness, + pertinent finding (+ chronic venous stasis changes on RLE. +2 pitting edema in BLE, worse on the right compared to left. + palpable achilles tendon nodule on R.) Neurologic/Psychiatric: alert, oriented x 3, + depressed affect Skin: normal color, warm/dry (Tamie Franklin, PA-C) Laboratory Results Last 24 Hours Test 05/30/17 13:59 05/30/17 14:50 05/30/17 17:12 05/30/17 17:49 White Blood Count 0.24 K/uL Red Blood Count 2.51 M/uL Hemoglobin 7.2 g/dL Hematocrit 21.0 % Mean Corpuscular Volume 83.7 fL Mean Corpuscular Hemoglobin 28.7 pg Mean Corpuscular Hemoglobin Concent 34.3 g/dl Platelet Count 17 K/uL Mean Platelet Volume 10.6 fL Neutrophils (%) (Auto) 4.1 % Lymphocytes (%) (Auto) 79.2 % Monocytes (%) (Auto) 16.7 % Eosinophils (%) (Auto) 0.0 % Basophils (%) (Auto) 0.0 % Neutrophils # (Auto) 0.01 K/uL Lymphocytes # (Auto) 0.19 K/uL Monocytes # (Auto) 0.04 K/uL Eosinophils # (Auto) 0.00 K/uL Basophils # (Auto) 0.00 K/uL RDW Standard Deviation 43.1 fL RDW Coefficient of Variation 14.1 % Immature Granulocyte % (Auto) 0.0 % Immature Granulocyte # (Auto) 0.00 K/uL Platelet Estimate SIGNIFIC DECREASED Red Blood Cell Morphology Unremarkable Prothrombin Time 13.8 SECONDS Prothromb Time International Ratio 1.3 Activated Partial Thromboplast Time 30.8 SECONDS Partial Thromboplastin Ratio 1.2 Sodium Level 141 mmol/L Potassium Level 2.7 mmol/L Chloride Level 101 mmol/L Carbon Dioxide Level 31 mmol/L Anion Gap 9.0 mmol/L Blood Urea Nitrogen 13 mg/dl Creatinine 0.98 mg/dl Est Creatinine Clear Calc Drug Dose 57.4 ml/min Estimated GFR () 65.4 Estimated GFR (Non- 56.4 BUN/Creatinine Ratio 13.5 Random Glucose 215 mg/dl Lactic Acid Level 2.1 mmol/L 1.2 mmol/L Calcium Level 8.1 mg/dl Magnesium Level 1.5 mg/dl Total Bilirubin 0.7 mg/dl Aspartate Amino Transf (AST/SGOT) 4 U/L Alanine Aminotransferase (ALT/SGPT) 35 U/L Alkaline Phosphatase 97 U/L Total Protein 5.0 gm/dl Albumin 2.3 gm/dl Globulin 2.7 gm/dl Albumin/Globulin Ratio 0.9 Procalcitonin 0.40 ng/ml Urine Color YELLOW Urine Appearance CLOUDY Urine pH 6.5 Urine Specific [place] 1.017 Urine Protein 2+ Urine Glucose (UA) 1+ Urine Ketones NEG Urine Occult Blood 2+ Urine Nitrite NEG Urine Bilirubin NEG Urine Urobilinogen NEG Urine Leukocyte Esterase NEG Urine WBC (Auto) 5-10 /hpf Urine RBC (Auto) 10-30 /hpf Urine Hyaline Casts (Auto) 5-10 /lpf Urine Epithelial Cells (Auto) >30 /lpf Urine Bacteria (Auto) 4+ Urine Renal Epithelial Cells 0-5 /lpf Bedside Glucose 228 mg/dl Test 05/30/17 20:24 05/31/17 04:44 05/31/17 07:51 Bedside Glucose 176 mg/dl 178 mg/dl (Tamie Franklin PA-C) Assessment and Plan This is a 77 yo F with PMHx of B cell lymphoma, 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 diff, HTN ,gout, hypokalemia and hypophoshatemia who presents after having lab work drawn at the [facility] showing diminished white count. She has an extensive medical history in the past month being at [facility] for the majority of April, and just recently being discharged to the [facility]. Initially the patient was seen here at [facility] and found to have a large left sided staghorn calculi, so was transferred to [facility] for surgical consultation. 04/21/17 a ureteral stent was placed, which is still there. While there the patient developed acute respiratory distress which was considered to be secondary to chemotherapy, but was then found to have a new onset PE, with a hx of chronic DVT in LLE, so IVC filter was placed. She is no longer on coumadin. She had her first chemotherapy for newly diagnosed Large B cell lymphoma from 04/28-05/02 with dose adjusted E-POCH along with intrathecal methotrexate injection. A [place]ain tunnelled catheter was placed during her stay. Her second cycle of chemotherapy was with R-CHOP on 05/19. She was discharged to the [facility] on 05/20. She presented with febrile neutropenia with Tmax of 38.3 at time of admission, which appears to be due to urinary tract infection with E.coli growing in urine culture. Neutropenic fever with ANC=10 - Appears source is urinary tract as Ucx is growing E. coli - Continue vancomycin IV, Primaxin IV and azithromycin IV. - Pt has been taking neupogen sQ inj once daily, continue 480 mg daily until ANC > 1000. - Pt reports continued nausea- zofran 8 mg Q8H and compazine 10 mg scheduled - Will start protonix inj for GI ppx since pt cannot tolerate oral meds - s/p 1U PRBCs and 2 U of platelets transfused 05/31. - Hematology consulted Large B cell lymphoma ( myc gene rearrangement) - Pt completed first cycle dose adjusted E-POCH from 04/28-05/02. Pt had a [place] tunneled catheter placed prior to the 2nd cycle of chemotherapy with R-CHOP completed on 05/19. - Pt had been on a prophylactic regimen with cipro, bactrim, acylovir and fluconazole as an outpatient regimen, will hold on this in the setting of neutropenic fever. - Heme consult Chronic DVT of the LLE and PE found after hypoxic episode at [facility] - Pt had IVC filter placed ~4weeks ago - Pt was on coumadin alternating with 2.5 mg on Tu/Tue and 5 mg on all other days of the week - no longer on anticoagulation. Recent urinary tract infection and stent placement for staghorn calculi - April 21 pt was admitted to [facility] and found to have staghorn calc, was transferred to [facility] for intervention and had a L ureteral stent placed same day. It is currently still in place. Family reports urology wont remove the stent due to pancytopenia and risk of infection. Pt reports she can feel the stent. - Urine cx with E.coli - Infectious disease consulted - Cont IVFs for now Electrolyte abnormalities/hypokalemia/hypomagnesemia - Repleted via IV potassium - continue K riders as this is still only 3.0 - Repleted via 2 g IV magnesium. Diabetes mellitus type II - hold Januvia - Continue ISS with Accu-Cheks ACHS with novolog - glucose seems to be running in high 200s, will tighten CF from 30 to 25 today. C. difficile history - continue vancomycin 125 mg po QID for prophylactic measures since getting multiple IV abx. Pt is having difficulty with oral intake due to nausea, hopefully around the clock antiemetic improve this. - Consider probiotic if can tolerate PO. Hypertension - hold furosemide 20 mg daily and valsartan 160 mg daily. Gout - continue allopurinol 200 mg by mouth daily. Appetite stimulant - continue Marinol 2.5 mg by mouth twice a day - Continue fluids with potassium - Nutrition consultation may be warranted if her appetite doesn't improve. Pt reports not eating for days now d/t nausea. Chronic back pain - will order a lidocaine patch as the pt uses this as an outpatient. DVT ppx: teds, scds, no chemical anticoagulation with thrombocytopenia. CODE STATUS: FULL CODE [place], was home for ~5days since discharge from [facility], CM to help with discharge planning. (Tamie Franklin PA-C) Reviewed: Pt Seen/Exam by Me (Monica Lindsay MD) History Physician Polymer Chemist Supervision Note: I interviewed and examined the patient. Discussed with ABELARDO Franklin and agree with findings and plan as documented in the note. Any exceptions or clarifications are listed here: Pt feeling very drained. Reports she is no longer taking po Vanco for C. diff. Very nauseated. Says legs have been swollen for a couple of months, has chronic DVT. Discussed case with Oncology VSS Obese, NAD, appears pale RRR no mgr CTAB no wcr Abd soft NT ND Ext 1+ pitting edema bilat with venous stasis changes 77 yo female with large B-cell Lymphoma, here with pancytopenia and neutropenic fever with E. coli UTI, indwelling ureteral stent and staghorn calculus. -continue abx, consider stopping azithro now that source is urine--> consult ID- -> may need prophylactic abx after treatmetn course given indwelling stent and recurrent UTIs -follow CBC and transfuse as needed, Neupogen daily -follow BCxs -IVC filter in place Documented By: Monica Lindsay (Monica Lindsay MD)
[2017-05-31 10:10] LABS: INR 1.3 (0.9-1.1); PARTIAL THROMBOPLASTIN RATIO 1.2; PROTHROMBIN TIME (PATIENT) 13.8 SECONDS (9.0-12.0)
[2017-05-31 10:11] LABS: HEMATOCRIT 21.8 % (37-47); MEAN CELL VOLUME 83.8 fL (80-100); MEAN CORPUSCULAR HEMOGLOBIN 29.6 pg (25-34); MEAN CORPUSCULAR HGB CONC 35.3 g/dl (32-36); MEAN PLATELET VOLUME 9.2 fL (7.4-10.4); PLATELET COUNT 47 K/uL (130-400); WHITE BLOOD COUNT 0.43 K/uL (4.8-10.8)
[2017-05-31 10:22] LABS: BUN/CREATININE RATIO 12.2 (10-20); CALCIUM 7.8 mg/dl (8.5-10.1); CREATININE 0.87 mg/dl (0.60-1.20); MAGNESIUM 1.7 mg/dl (1.8-2.4)
[2017-05-31 10:38] LABS: COMPLETE YES; LYMPH % 44.2 %; LYMPH ABS # 0.19 K/uL (1.2-3.4); MONO % 53.5 %; NEUT % 2.3 %
[2017-05-31] MEDS ORDERED: ONDANSETRON INJ 8 MG in DEXTROSE 5% 50ML 50 ML IV PRN (12:15)
[2017-05-31] MEDS ORDERED: PROCHLORPERAZINE INJ 10 MG in SYRINGE 8 ML IV PRN (12:15)
--- NOTE | 2017-05-31 13:07 | Oncology Consultation ---
Oncology/Heme Consultation Date of Consultation: May 31, 2017. Attending Physician: Monica Lindsay MD Reason for Consultation: High-grade non-Hodgkin Lymphoma Prolonged neutropenia UTI History of Present Illness Ms. Perez is a 77 year old woman who was diagnosed in late March with a high- grade non-Hodgkin lymphoma with an unusual presentation, primarily with peripheral lymphocytosis. Her lymphoma is positive for a c-MYC rearrangement, which is a marker of aggressive disease. She was not, however, a "double-hit" lymphoma. She had [place] prot[place] [facility] [place] all of [place] where she received two cycles of DA-EPOCH-R, most recently 05/19-05/24. She was discharged to rehab shortly after she completed her second cycle. However, she spiked a fever yesterday and was brought back to the ER here. She had extensive marrow involvement from her lymphoma and has had difficulty with low counts and delayed recovery as a result. She also has had UTIs recently and has a staghorn calculus. Her urine is growing E coli, which has been present since February. She is now on vancomycin, imipenem, and azithromycin. Her E coli was found to be sensitive to imipenem during her stay in March. She also generally feels weak and nauseous and has not eaten well since this whole incident started Past Medical/Surgical History Medical Problems: (1) Hypokalemia Status: Acute (2) Neutropenia Status: Acute (3) Pancytopenia Status: Acute (4) Sepsis Status: Acute (5) UTI (urinary tract infection) Status: Acute Family History No pertinent family history Social History Smoking Status: Never Smoker Smokeless Tobacco Use: No Alcohol Use: none Drug Use: none Marital Status: Occupation Status: retired Allergies Coded Allergies: Ciprofloxacin (Verified Allergy, Intermediate, RASH, 04/21/17) Phlebitis Penicillins (Verified Allergy, Mild, HIVES, 04/21/17) Home Medications Scheduled Allopurinol (Zyloprim), 200 MG PO DAILY Baclofen (Baclofen), 20 MG PO BID Biotin (Biotin), 5,000 MCG PO DAILY Dronabinol (Marinol), 2.5 MG PO AMPM Furosemide (Lasix), 20 MG PO DAILY Oxybutynin Chloride (Ditropan), 10 MG PO DAILY Sitagliptin Phosphate (Januvia), 100 MG PO DAILY Valsartan (Diovan), 160 MG PO DAILY Vancomycin Hcl (Vancomycin), 125 MG PO QID Scheduled PRN Acetaminophen Tab (Tylenol), 650 MG PO Q8 PRN for Mild Pain Albuterol Hfa (Ventolin Hfa), 2 PUFFS INH QID PRN for Wheezing Bismuth Subsalicylate (Pepto-Bismol), 15 ML PO QID PRN for Dyspepsia Dicyclomine Hcl (Bentyl), 20 MG PO QID PRN for BLOATING Fluticasone Propionate (Nasal) (Flonase Allergy Relief), 2 SPRAYS VIGNESH DAILY PRN for ALLERGIES Hydrocodone/Acetaminophen 5MG/325MG ([place] 5MG/325MG), 1 TABLET PO Q6 PRN for Severe Pain Meclizine Hcl (Meclizine Hcl), 1 TAB PO TID PRN for Dizziness or Vertigo Ondansetron Hcl (Zofran), 4 MG PO Q6 PRN for Nausea Polyethylene Glycol 3350 (Miralax), 17 GM PO DAILY PRN for Constipation Sennosides-Docusate Sodium (Senna S), 2 TABS PO BID PRN for Constipation Current Inpatient Medications Current Inpatient Medications Medications (Trade) Dose Ordered Sig/[place] Route Start Time Stop Time Status Last Admin Dose Admin Imipenem/ Cilastatin Sodium 500 mg/Dextrose 110 ml @ 100 mls/hr Q6H IV 05/30/17 18:00 06/01/17 18:01 05/31/17 12:06 100 MLS/HR Azithromycin 500 mg/Dextrose 255 ml @ 125 mls/hr DAILY@2000 IV 05/30/17 20:00 06/01/17 19:59 05/31/17 00:18 125 MLS/HR Vancomycin HCl (Consult) 1 ea UD PRN N/A 05/30/17 15:00 06/29/17 14:59 Acetaminophen (Tylenol Tab) 650 mg Q4H PRN PO 05/30/17 16:00 06/29/17 15:59 Albuterol (Ventolin Hfa Inhaler) 2 puffs QID PRN INH 05/30/17 16:00 06/29/17 15:59 Allopurinol (Zyloprim Tab) 200 mg DAILY PO 05/31/17 08:00 06/30/17 08:59 05/31/17 07:53 200 MG Baclofen (Lioresal Tab) 20 mg BID PO 05/30/17 20:00 06/29/17 20:59 05/31/17 07:53 20 MG Bismuth Subsalicylate (Pepto-Bismol Susp) 15 ml QID PRN PO 05/30/17 16:00 06/29/17 15:59 Dicyclomine HCl (Bentyl Tab) 20 mg QID PRN PO 05/30/17 16:00 06/29/17 15:59 Dronabinol (Marinol Cap) 2.5 mg BID PO 05/30/17 20:00 06/29/17 20:59 05/31/17 08:05 2.5 MG Fluticasone Propionate (Flonase Nasal [place]) 2 sprays DAILY PRN VIGNESH 05/30/17 16:00 06/29/17 15:59 Acetaminophen/ Hydrocodone Bitart ([place] 5/325 Tab) 1 tab Q6 PRN PO 05/30/17 16:00 06/13/17 15:59 05/31/17 03:03 1 TAB Meclizine HCl (Antivert Tab) 25 mg TID PRN PO 05/30/17 16:00 06/29/17 15:59 Oxybutynin Chloride (Ditropan Tab) 10 mg DAILY PO 05/31/17 08:00 06/30/17 08:59 05/31/17 07:53 10 MG Senna/Docusate Sodium (Senokot S Tab) 2 tab BID PRN PO 05/30/17 16:00 06/29/17 15:59 Vancomycin HCl (Vancomycin Oral Soln) 125 mg QID PO 05/30/17 17:00 06/13/17 16:59 Ondansetron HCl (Zofran Inj) 4 mg Q6H PRN IV 05/30/17 16:00 06/29/17 15:59 05/31/17 09:47 4 MG Insulin Aspart (novoLOG ASPART) SLIDING SCALE If C... ACHS SC 05/30/17 17:21 06/29/17 17:20 05/31/17 12:07 2 UNITS Glucose (Glucose 40% Gel) UD PRN PO 05/30/17 16:00 06/29/17 15:59 Glucose (Glucose Chew Tab) 1 tabs UD PRN PO 05/30/17 16:00 06/29/17 15:59 Dextrose (Dextrose 50% 50ML Syringe) 50 ml UD PRN IV 05/30/17 16:00 06/29/17 15:59 Glucagon (Glucagon Inj) 1 mg UD PRN SQ 05/30/17 16:00 06/29/17 15:59 Potassium Chloride/Sodium Chloride 1,000 ml @ 100 mls/hr Q10H IV 05/30/17 16:52 06/29/17 16:51 05/31/17 12:08 100 MLS/HR Vancomycin HCl 1400 mg/Sodium Chloride 528 ml @ 200 mls/hr Q14H IV 05/31/17 06:00 06/02/17 05:59 05/31/17 08:04 200 MLS/HR Raspberry (Raspberry Syrup 5ml Cup) 5 ml QID PO 05/30/17 17:00 06/13/17 16:59 Lidocaine (Lidoderm Patch 5%) 1 patch QAM TD 05/31/17 11:45 06/30/17 11:44 Miscellaneous (Remove Lidoderm Patch) 1 ea DAILY@21 N/A 05/31/17 21:00 06/30/17 20:59 Ondansetron HCl 8 mg/Dextrose 54 ml @ 200 mls/hr Q6H PRN IV 05/31/17 12:15 06/30/17 12:14 Prochlorperazine Edisylate 10 mg/ Syringe 10 ml @ 5 mls/min Q6H PRN IV 05/31/17 12:15 06/30/17 12:14 Pantoprazole Sodium 40 mg/ Syringe 10 ml @ 5 mls/min DAILY@11 IV 06/01/17 11:00 07/01/17 10:59 Review of Systems Constitutional: + fever, + weakness, + fatigue Eyes: No worsening of vision Respiratory: No cough, No shortness of breath Cardiovascular: No chest pain Abdomen: + nausea, No pain, No vomiting, No diarrhea Genitourinary - Female: No hematuria Neurologic: No weakness, No numbness/tingling Hematologic / Lymphatic: No abnormal bleeding/bruising Integumentary: No rash Physical Exam Date Time Temp Pulse Resp B/P (MAP) Pulse Ox O2 Delivery O2 Flow Rate FiO2 05/31/17 10:00 Room Air 05/31/17 07:42 36.7 85 18 143/79 96 05/31/17 06:45 36.9 80 16 144/83 94 05/31/17 05:45 36.9 94 16 146/76 94 05/31/17 05:30 36.9 87 18 146/76 94 05/31/17 05:18 36.9 98 18 145/72 93 05/31/17 04:50 36.9 95 16 166/74 92 05/31/17 00:52 37.5 05/31/17 00:00 Room Air 05/30/17 23:58 37.8 108 16 145/74 95 05/30/17 23:20 36.8 102 16 184/84 93 05/30/17 22:50 36.8 104 16 181/85 93 05/30/17 22:35 37.1 106 16 181/83 94 05/30/17 22:22 37.3 104 16 180/83 94 2.0 05/30/17 21:50 37.0 100 16 163/82 92 05/30/17 21:35 36.9 96 16 156/90 94 05/30/17 21:20 36.9 98 16 154/81 94 05/30/17 21:15 36.9 98 16 151/81 94 0.0 05/30/17 20:00 Room Air 05/30/17 19:24 36.8 86 20 144/80 (101) 94 Room Air 05/30/17 18:19 37.6 92 16 131/79 95 Room Air 05/30/17 16:57 37.6 92 16 131/79 (96) 95 Room Air 05/30/17 16:15 37.4 99 16 174/90 96 05/30/17 14:53 98 21 125/83 93 Room Air 05/30/17 14:00 107 17 159/75 95 Room Air 05/30/17 13:30 105 20 182/94 94 Room Air 05/30/17 13:00 100 22 205/84 95 Room Air General Appearance: no apparent distress, + obese, + pertinent finding (ill- appearing and weak) Eyes: EOMI ENT: pharynx normal Respiratory/Chest: lungs clear Cardiovascular: regular rate, rhythm Abdomen/GI: non tender, soft Extremities/Musculoskelatal: no pedal edema Neurologic/Psych: no motor/sensory deficits, alert, oriented x 3 Skin: warm/dry Laboratory Results Last 24 Hours Test 05/30/17 13:59 05/30/17 14:50 05/30/17 17:12 05/30/17 17:49 White Blood Count 0.24 K/uL Red Blood Count 2.51 M/uL Hemoglobin 7.2 g/dL Hematocrit 21.0 % Mean Corpuscular Volume 83.7 fL Mean Corpuscular Hemoglobin 28.7 pg Mean Corpuscular Hemoglobin Concent 34.3 g/dl Platelet Count 17 K/uL Mean Platelet Volume 10.6 fL Neutrophils (%) (Auto) 4.1 % Lymphocytes (%) (Auto) 79.2 % Monocytes (%) (Auto) 16.7 % Eosinophils (%) (Auto) 0.0 % Basophils (%) (Auto) 0.0 % Neutrophils # (Auto) 0.01 K/uL Lymphocytes # (Auto) 0.19 K/uL Monocytes # (Auto) 0.04 K/uL Eosinophils # (Auto) 0.00 K/uL Basophils # (Auto) 0.00 K/uL RDW Standard Deviation 43.1 fL RDW Coefficient of Variation 14.1 % Immature Granulocyte % (Auto) 0.0 % Immature Granulocyte # (Auto) 0.00 K/uL Platelet Estimate SIGNIFIC DECREASED Red Blood Cell Morphology Unremarkable Prothrombin Time 13.8 SECONDS Prothromb Time International Ratio 1.3 Activated Partial Thromboplast Time 30.8 SECONDS Partial Thromboplastin Ratio 1.2 Sodium Level 141 mmol/L Potassium Level 2.7 mmol/L Chloride Level 101 mmol/L Carbon Dioxide Level 31 mmol/L Anion Gap 9.0 mmol/L Blood Urea Nitrogen 13 mg/dl Creatinine 0.98 mg/dl Est Creatinine Clear Calc Drug Dose 57.4 ml/min Estimated GFR () 65.4 Estimated GFR (Non- 56.4 BUN/Creatinine Ratio 13.5 Random Glucose 215 mg/dl Lactic Acid Level 2.1 mmol/L 1.2 mmol/L Calcium Level 8.1 mg/dl Magnesium Level 1.5 mg/dl Total Bilirubin 0.7 mg/dl Aspartate Amino Transf (AST/SGOT) 4 U/L Alanine Aminotransferase (ALT/SGPT) 35 U/L Alkaline Phosphatase 97 U/L Total Protein 5.0 gm/dl Albumin 2.3 gm/dl Globulin 2.7 gm/dl Albumin/Globulin Ratio 0.9 Procalcitonin 0.40 ng/ml Urine Color YELLOW Urine Appearance CLOUDY Urine pH 6.5 Urine Specific [place] 1.017 Urine Protein 2+ Urine Glucose (UA) 1+ Urine Ketones NEG Urine Occult Blood 2+ Urine Nitrite NEG Urine Bilirubin NEG Urine Urobilinogen NEG Urine Leukocyte Esterase NEG Urine WBC (Auto) 5-10 /hpf Urine RBC (Auto) 10-30 /hpf Urine Hyaline Casts (Auto) 5-10 /lpf Urine Epithelial Cells (Auto) >30 /lpf Urine Bacteria (Auto) 4+ Urine Renal Epithelial Cells 0-5 /lpf Bedside Glucose 228 mg/dl Test 05/30/17 20:24 05/31/17 07:51 05/31/17 09:39 05/31/17 11:19 Bedside Glucose 176 mg/dl 178 mg/dl 182 mg/dl White Blood Count 0.43 K/uL Red Blood Count 2.60 M/uL Hemoglobin 7.7 g/dL Hematocrit 21.8 % Mean Corpuscular Volume 83.8 fL Mean Corpuscular Hemoglobin 29.6 pg Mean Corpuscular Hemoglobin Concent 35.3 g/dl Platelet Count 47 K/uL Mean Platelet Volume 9.2 fL Neutrophils (%) (Auto) 2.3 % Lymphocytes (%) (Auto) 44.2 % Monocytes (%) (Auto) 53.5 % Eosinophils (%) (Auto) 0.0 % Basophils (%) (Auto) 0.0 % Neutrophils # (Auto) 0.01 K/uL Lymphocytes # (Auto) 0.19 K/uL Monocytes # (Auto) 0.23 K/uL Eosinophils # (Auto) 0.00 K/uL Basophils # (Auto) 0.00 K/uL RDW Standard Deviation 43.2 fL RDW Coefficient of Variation 14.1 % Immature Granulocyte % (Auto) 0.0 % Immature Granulocyte # (Auto) 0.00 K/uL Nucleated RBC Absolute Count (auto) 0.02 K/uL Nucleated Red Blood Cells % 5.6 % Red Blood Cell Morphology Unremarkable Prothrombin Time 13.8 SECONDS Prothromb Time International Ratio 1.3 Activated Partial Thromboplast Time 32.2 SECONDS Partial Thromboplastin Ratio 1.2 Sodium Level 142 mmol/L Potassium Level 3.0 mmol/L Chloride Level 105 mmol/L Carbon Dioxide Level 31 mmol/L Anion Gap 6.0 mmol/L Blood Urea Nitrogen 11 mg/dl Creatinine 0.87 mg/dl Est Creatinine Clear Calc Drug Dose 63.6 ml/min Estimated GFR () 75.5 Estimated GFR (Non- 65.2 BUN/Creatinine Ratio 12.2 Random Glucose 156 mg/dl Calcium Level 7.8 mg/dl Magnesium Level 1.7 mg/dl Assessment & Plan Ms. Perez has a high-risk, high-grade NHL that presented with primarily marrow involvement and peripheral lymphocytosis. She was [place] [facility] [place] cycles of DA-EPOCH-R, the last of which began 05/19. Her first cycle was complicated by delayed cytologic recovery. She presents now with neutropenic fever. She is growing E coli in her urine, though this has been ongoing since February and she has a staghorn calculus that may be a nidus of infection. The bacteria is sensitive to imipenem, which she is on now. Her counts are up a bit today, which is encouraging, as this is the point in the cycle when we would expect to see count recovery. This suggests that her marrow disease is responding to chemo and that future cycles should be less complicated. We will also plan, as an outpatient, on switching to a less-toxic variant of this regimen, R-CHOP. For now, I would continue with supportive care and antibiotics. I would consider an ID consult, though her difficulty in clearing the UTI may simply be related to poor immune function due to her lymphoma. I would also add Neupogen 480 mcg daily until count recovery (ANC >1000).
[2017-05-31] MEDS ORDERED: ONDANSETRON INJ 8 MG in DEXTROSE 5% 50ML 50 ML IV SCH (14:00)
[2017-05-31] MEDS ORDERED: NURSING VERBAL MED ORDER ONE (14:15)
[2017-05-31] MEDS: LIDODERM (LIDOCAINE) PATCH 5% TD SCH (14:31)
[2017-05-31] MEDS: PROCHLORPERAZINE INJ 10 MG in SYRINGE 8 ML IV SCH ×2 (14:31→20:57)
[2017-05-31] MEDS: FILGRASTIM 480 MCG/1.6 ML VIAL SC SCH (15:22)
[2017-05-31] MEDS: ONDANSETRON INJ 8 MG in DEXTROSE 5% 50ML 50 ML IV SCH ×2 (15:23→23:41)
[2017-06-01] MEDS: PROCHLORPERAZINE INJ 10 MG in SYRINGE 8 ML IV SCH ×4 (02:08→20:03)
[2017-06-01 03:37] VITALS: BP 144/80; PULSE 96; TEMP 37.4; O2SAT 93
[2017-06-01] MEDS: IMIPENEM/CILASTATIN IV 500 MG in DEXTROSE 5% 100ML 100 ML IV SCH (05:25)
[2017-06-01 05:54] LABS: INR 1.3 (0.9-1.1); PARTIAL THROMBOPLASTIN RATIO 1.2; PROTHROMBIN TIME (PATIENT) 13.5 SECONDS (9.0-12.0)
[2017-06-01 05:59] LABS: HEMATOCRIT 23.6 % (37-47); MEAN CELL VOLUME 85.5 fL (80-100); MEAN CORPUSCULAR HEMOGLOBIN 29.3 pg (25-34); MEAN CORPUSCULAR HGB CONC 34.3 g/dl (32-36); RED BLOOD COUNT 2.76 M/uL (4.2-5.4); WHITE BLOOD COUNT 1.96 K/uL (4.8-10.8)
[2017-06-01 06:17] LABS: BUN/CREATININE RATIO 8.4 (10-20); CALCIUM 7.8 mg/dl (8.5-10.1); CREATININE 0.89 mg/dl (0.60-1.20); MAGNESIUM 1.6 mg/dl (1.8-2.4); POTASSIUM 3.1 mmol/L (3.5-5.1)
[2017-06-01] MEDS: ONDANSETRON INJ 2 MG/ML 2 ML VIAL IV PRN (06:26)
[2017-06-01] MEDS: HYDROCODONE/ACETAMOPHEN 5/325MG TAB PO PRN (06:34)
[2017-06-01 07:04] VITALS: BP 145/75; PULSE 83; TEMP 36.8; O2SAT 92
[2017-06-01 07:13] LABS: MEAN PLATELET VOLUME 10.4 fL (7.4-10.4); PLATELET COUNT 72 K/uL (130-400)
--- NOTE | 2017-06-01 07:22 | Hospitalist Progress Note ---
Hospitalist Progress Note Date of Service Jun 01, 2017. (Tamie Franklin PA-C) Subjective Pt evaluation today including: conversation w/ patient, physical exam, chart review, lab review, review of studies Pain: None PO Intake: fair Voiding: no voiding problems The patient was seen and examined this morning. Pt reports doing well today. She is tired although slept a lot overnight. She states her nausea is better today, and that she was able to eat breakfast and tolerated some juice and water. She was already up in the bedside chair once this morning, and is agreeable to getting up and walking a few times daily. Pt was seen by ID and heme/onc this morning. Her granddaughter was at bedside and all her questions and concerns were answered. Constitutional: + fatigue, No fever, No chills, No sweats Eyes: No problem reported ENT: No nasal symptoms, No sore throat, No trouble swallowing Respiratory: No shortness of breath, No dyspnea at rest Cardiovascular: No chest pain, No palpitations Abdomen: No pain, No nausea, No vomiting, No diarrhea, No constipation Female : No dysuria, No urinary frequency, No hematuria Endo: + fatigue Skin: No rash, No itch (Tamie Franklin PA-C) Objective Vital Signs Date Time Temp Pulse Resp B/P (MAP) Pulse Ox O2 Delivery O2 Flow Rate FiO2 06/01/17 07:04 36.8 83 18 145/75 (98) 92 Room Air 06/01/17 03:37 37.4 96 20 144/80 (101) 93 Room Air 06/01/17 00:00 Room Air 05/31/17 22:56 37.1 91 20 133/76 (95) 97 Room Air 05/31/17 20:00 Room Air 05/31/17 19:16 37.1 87 18 153/74 (100) 95 Room Air 05/31/17 15:52 36.9 99 20 133/78 (96) 92 Room Air 05/31/17 15:40 Room Air 05/31/17 10:00 Room Air 05/31/17 07:42 36.7 85 18 143/79 96 (Tamie Franklin PA-C) Physical Exam Notes: General Appearance: WD/WN, no apparent distress, + obese Eyes: PERRL, EOMI ENT: hearing grossly normal, pharynx normal, + pertinent finding (+apthous ulcers on buccal mucosa near posterior molars.) Neck: supple, no JVD Respiratory/Chest: chest non-tender, no respiratory distress, no accessory muscle use, + pertinent finding (On RA, slightly diminished breath sounds at bases, no crackles, wheezing or rales) Cardiovascular: regular rate, rhythm, no murmur Abdomen: non tender, soft, + improved bowel sounds Extremities: non-tender, no calf tenderness, + pertinent finding (+ chronic venous stasis changes on RLE. +2 pitting edema in BLE, worse on the right compared to left. + palpable achilles tendon nodule on R.) Neurologic/Psychiatric: alert, oriented x 3, mood improved today Skin: normal color, warm/dry (Tamie Franklin, PADonnaC) Laboratory Results Last 24 Hours Test 05/31/17 07:51 05/31/17 09:39 05/31/17 11:19 05/31/17 16:34 Bedside Glucose 178 mg/dl 182 mg/dl 193 mg/dl White Blood Count 0.43 K/uL Red Blood Count 2.60 M/uL Hemoglobin 7.7 g/dL Hematocrit 21.8 % Mean Corpuscular Volume 83.8 fL Mean Corpuscular Hemoglobin 29.6 pg Mean Corpuscular Hemoglobin Concent 35.3 g/dl Platelet Count 47 K/uL Mean Platelet Volume 9.2 fL Neutrophils (%) (Auto) 2.3 % Lymphocytes (%) (Auto) 44.2 % Monocytes (%) (Auto) 53.5 % Eosinophils (%) (Auto) 0.0 % Basophils (%) (Auto) 0.0 % Neutrophils # (Auto) 0.01 K/uL Lymphocytes # (Auto) 0.19 K/uL Monocytes # (Auto) 0.23 K/uL Eosinophils # (Auto) 0.00 K/uL Basophils # (Auto) 0.00 K/uL RDW Standard Deviation 43.2 fL RDW Coefficient of Variation 14.1 % Immature Granulocyte % (Auto) 0.0 % Immature Granulocyte # (Auto) 0.00 K/uL Nucleated RBC Absolute Count (auto) 0.02 K/uL Nucleated Red Blood Cells % 5.6 % Red Blood Cell Morphology Unremarkable Prothrombin Time 13.8 SECONDS Prothromb Time International Ratio 1.3 Activated Partial Thromboplast Time 32.2 SECONDS Partial Thromboplastin Ratio 1.2 Sodium Level 142 mmol/L Potassium Level 3.0 mmol/L Chloride Level 105 mmol/L Carbon Dioxide Level 31 mmol/L Anion Gap 6.0 mmol/L Blood Urea Nitrogen 11 mg/dl Creatinine 0.87 mg/dl Est Creatinine Clear Calc Drug Dose 63.6 ml/min Estimated GFR () 75.5 Estimated GFR (Non- 65.2 BUN/Creatinine Ratio 12.2 Random Glucose 156 mg/dl Calcium Level 7.8 mg/dl Magnesium Level 1.7 mg/dl Test 05/31/17 20:53 06/01/17 05:30 Bedside Glucose 118 mg/dl White Blood Count 1.96 K/uL Red Blood Count 2.76 M/uL Hemoglobin 8.1 g/dL Hematocrit 23.6 % Mean Corpuscular Volume 85.5 fL Mean Corpuscular Hemoglobin 29.3 pg Mean Corpuscular Hemoglobin Concent 34.3 g/dl Platelet Count 72 K/uL Mean Platelet Volume 10.4 fL RDW Standard Deviation 44.3 fL RDW Coefficient of Variation 14.5 % Prothrombin Time 13.5 SECONDS Prothromb Time International Ratio 1.3 Activated Partial Thromboplast Time 30.8 SECONDS Partial Thromboplastin Ratio 1.2 Sodium Level 141 mmol/L Potassium Level 3.1 mmol/L Chloride Level 106 mmol/L Carbon Dioxide Level 28 mmol/L Anion Gap 7.0 mmol/L Blood Urea Nitrogen 7 mg/dl Creatinine 0.89 mg/dl Est Creatinine Clear Calc Drug Dose 62.1 ml/min Estimated GFR () 73.5 Estimated GFR (Non- 63.4 BUN/Creatinine Ratio 8.4 Random Glucose 112 mg/dl Calcium Level 7.8 mg/dl Magnesium Level 1.6 mg/dl (Tamie Franklin, CHIVO) Assessment and Plan This is a 77 yo F with PMHx of B cell lymphoma, 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 diff, HTN ,gout, hypokalemia and hypophoshatemia who presents after having lab work drawn at the [facility] at [facility] showing diminished white count. She has an extensive medical history in the past month being at [place] for the majority of April, and just recently being discharged to the [facility] at [facility]. Initially the patient was seen here at [facility] and found to have a large left sided staghorn calculi, so was transferred to [place] for surgical consultation. 04/21/17 a ureteral stent was placed, which is still there. While there the patient developed acute respiratory distress which was considered to be secondary to chemotherapy, but was then found to have a new onset PE, with a hx of chronic DVT in LLE, so IVC filter was placed. She is no longer on coumadin. She had her first chemotherapy for newly diagnosed Large B cell lymphoma from 04/28-05/02 with dose adjusted E-POCH along with intrathecal methotrexate injection. A [place] tunnelled catheter was placed during her stay. Her second cycle of chemotherapy was with R-CHOP on 05/19. She was discharged to the [facility] on 05/20. She presented with febrile neutropenia with Tmax of 38.3 at time of admission, which appears to be due to urinary tract infection with E.coli growing in urine culture. Neutropenic fever with ANC=10 at time of admission - Appears source is urinary tract as Ucx is growing E. coli - Continue vancomycin IV, Primaxin IV and azithromycin IV -- ID consulted, plan to transition to rocephin IV for now to de-escalate abx therapy. - Pt has been taking neupogen sQ inj once daily, continue 480 mg daily until ANC > 1000. - Pt reports continued nausea- zofran 8 mg Q8H and compazine 10 mg scheduled - Continue protonix inj - s/p 1U PRBCs and 2 U of platelets transfused 05/31. - Hematology consulted - appreciate recs Large B cell lymphoma ( myc gene rearrangement) - Pt completed first cycle dose adjusted E-POCH from 04/28-05/02. Pt had a [place] tunneled catheter placed prior to the 2nd cycle of chemotherapy with R-CHOP completed on 05/19. - Pt had been on a prophylactic regimen with cipro, bactrim, acylovir and fluconazole as an outpatient regimen, will hold on this in the setting of neutropenic fever. - ID states can resume ppx abx therapy after course of abx for urosepsis. - Heme consult- appreciate recs Chronic DVT of the LLE and PE found after hypoxic episode at [facility] - Pt had IVC filter placed ~4weeks ago- no longer on anticoagulation. Recent urinary tract infection and stent placement for staghorn calculi - April 21 pt was admitted to [facility] and found to have staghorn calc, was transferred to [facility] for intervention and had a L ureteral stent placed same day. It is currently still in place. Family reports urology wont remove the stent due to pancytopenia and risk of infection. Pt reports she can feel the stent. - Urine cx with E.coli - Infectious disease consulted - appreciate recs - Cont IVFs for now Electrolyte abnormalities/hypokalemia/hypomagnesemia - Repleted via IV potassium - continue K riders as K was 3.1 this morning - Repleted via 1 g IV magnesium for Mag=1.7 Diabetes mellitus type II - hold Januvia - Continue ISS with Accu-Cheks ACHS with novolog - glucose seems to be running in high 200s, will tighten CF from 30 to 25 today. C. difficile history - continue vancomycin 125 mg po QID for prophylactic measures since getting multiple IV abx. Pt is having difficulty with oral intake due to nausea, hopefully around the clock antiemetic improve this. - Consider probiotic if can tolerate PO. Hypertension - hold furosemide 20 mg daily and valsartan 160 mg daily. Gout - continue allopurinol 200 mg by mouth daily. Appetite stimulant - continue Marinol 2.5 mg by mouth twice a day - Continue fluids with potassium - Nutrition consultation may be warranted if her appetite doesn't improve. Pt reports not eating for days now d/t nausea. Chronic back pain - will order a lidocaine patch as the pt uses this as an outpatient. DVT ppx: teds, scds, no chemical anticoagulation with thrombocytopenia. CODE STATUS: FULL CODE Disposition: From the [facility], was home for ~5days since discharge from [facility], CM to help with discharge planning. (Tamie Franklin PA-C) Reviewed: Pt Seen/Exam by Me (Monica Lindsay MD) History Physician Sports Journalist Supervision Note: I interviewed and examined the patient. Discussed with ABELARDO Franklin and agree with findings and plan as documented in the note. Any exceptions or clarifications are listed here: Very sleepy today likely from compazine ATC. Not nauseated and ate some food today, was OOB to chair. Received med rec from [place]. Was not on acyclovir , diflucan, bactrim, or Cipro. She was supposed to be on po Vanco through 06/06 VSS Obese, NAD, appears pale RRR no mgr CTAB no wcr Abd soft NT ND Ext 1+ pitting edema bilat with venous stasis changes 77 yo female with hig-grade B-cell Lymphoma, here with pancytopenia and neutropenic fever with E. coli UTI, indwelling ureteral stent and staghorn calculus. Improving, counts improving today -continue Rocephin as changed to today by ID--> may need prophylactic abx after treatment course given indwelling stent and recurrent UTIs--> pt says she has tolerated po Cipro she thinks, but IV Cipro liste as an allergy as her arm burned and turne red when she had it at [facility] -follow CBC , lytes -follow BCxs -IVC filter in place Dispo-plan to go home with home health as per pt and son's request Documented By: Monica Lindsay (Monica Lindsay MD)
[2017-06-01] MEDS ORDERED: MAGNESIUM SULFATE 1GM / D5W 1 GM in PREMIXED IN D5W 100 ML IV ONE (07:30)
[2017-06-01 07:34] LABS: DOHLE BODIES 3+; TOXIC GRANULATION 3+; VACUOLIZATION 1+
[2017-06-01 07:44] LABS: BASO ABS # 0.07 K/uL (0-0.2); BASOPHIL % 3.6 %; EOSINOPHIL % 0.9 %; LYMPH ABS # 0.72 K/uL (1.2-3.4); LYMPHOCYTE % 36.6 %; META ABS # 0.02 K/uL (0-0); METAMYELOCYTE % 0.9 %; MYELOCYTE % 2.7 %; NEUTROPHILS % 43.7 %
[2017-06-01 07:46] LABS: COMPLETE YES
[2017-06-01] MEDS: RASPBERRY SYRUP 5 ML UDP PO SCH ×4 (08:00→20:00)
[2017-06-01] MEDS: VANCOMYCIN HCL 125 MG/2.5ML SOLN PO SCH ×4 (08:00→20:00)
[2017-06-01] MEDS: POTASSIUM CHLR 10 MEQ / WTR 10 MEQ in PREMIXED WATER 100 ML IV SCH ×4 (08:22→12:06)
[2017-06-01] MEDS: NSS + 20MEQ KCL 1000ML 1,000 ML IV SCH ×2 (08:24→18:39)
[2017-06-01] MEDS: ALLOPURINOL 100 MG TAB PO SCH (08:27)
[2017-06-01] MEDS: OXYBUTYNIN CHLORIDE 5 MG TAB PO SCH (08:27)
[2017-06-01] MEDS: LIDODERM (LIDOCAINE) PATCH 5% TD SCH (08:28)
[2017-06-01] MEDS: BACLOFEN TAB 20 MG TAB PO SCH ×2 (08:29→20:02)
[2017-06-01] MEDS: DRONABINOL 2.5 MG CAP PO SCH ×2 (08:34→20:02)
[2017-06-01] MEDS: FILGRASTIM 480 MCG/1.6 ML VIAL SC SCH (08:35)
--- NOTE | 2017-06-01 09:32 | Hematology/Oncology Prog Note ---
Hematology/Onc Progress Note Date of Service Jun 01, 2017. Diagnoses High-grade B-cell lymphoma Pancytopenia secondary to therapy Medications Medications Administered Medications (Trade) Dose Ordered Sig/[place] Route Start Time Stop Time Status Last Admin Dose Admin Acetaminophen (Tylenol Tab) 1,000 mg NOW STAT PO 05/30/17 13:21 05/30/17 13:22 DC 05/30/17 13:51 1,000 MG Ondansetron HCl (Zofran Inj) 4 mg NOW STAT IV 05/30/17 13:29 05/30/17 13:31 DC 05/30/17 13:51 4 MG Heparin Sodium (Porcine) (Heparin 10 Unit/ ml 5 ml Flush) 5 ml STK-MED ONCE .ROUTE 05/30/17 13:50 05/30/17 13:51 DC 05/30/17 13:50 5 ML Potassium Chloride (Kcl 10 Meq / Wtr) 10 meq NOW STAT IV 05/30/17 14:12 05/30/17 14:13 DC 05/30/17 15:35 10 MEQ Cefepime HCl 2000 mg/Dextrose 112.5 ml @ 200 mls/hr NOW STAT IV 05/30/17 14:12 05/30/17 14:45 DC 05/30/17 15:35 200 MLS/HR Sodium Chloride 500 ml @ 999 mls/hr Q31M STAT IV 05/30/17 14:12 05/30/17 14:42 DC 05/30/17 14:12 999 MLS/HR Imipenem/ Cilastatin Sodium 500 mg/Dextrose 110 ml @ 100 mls/hr Q6H IV 05/30/17 18:00 06/01/17 18:01 06/01/17 05:25 100 MLS/HR Azithromycin 500 mg/Dextrose 255 ml @ 125 mls/hr DAILY@2000 IV 05/30/17 20:00 06/01/17 19:59 05/31/17 20:02 125 MLS/HR Vancomycin HCl 2800 mg/Sodium Chloride 556 ml @ 200 mls/hr 1530 IV 05/30/17 15:30 05/30/17 18:17 DC 05/30/17 15:58 200 MLS/HR Allopurinol (Zyloprim Tab) 200 mg DAILY PO 05/31/17 08:00 06/30/17 08:59 06/01/17 08:27 200 MG Baclofen (Lioresal Tab) 20 mg BID PO 05/30/17 20:00 06/29/17 20:59 06/01/17 08:29 20 MG Dronabinol (Marinol Cap) 2.5 mg BID PO 05/30/17 20:00 06/29/17 20:59 06/01/17 08:34 2.5 MG Acetaminophen/ Hydrocodone Bitart ([place] 5/325 Tab) 1 tab Q6 PRN PO 05/30/17 16:00 06/13/17 15:59 06/01/17 06:34 1 TAB Oxybutynin Chloride (Ditropan Tab) 10 mg DAILY PO 05/31/17 08:00 06/30/17 08:59 06/01/17 08:27 10 MG Potassium Chloride 10 meq/ Prmx 100 ml @ 100 mls/hr 1800,1900,2000,2100 IV 05/30/17 18:00 05/31/17 00:00 DC 05/31/17 04:43 100 MLS/HR Ondansetron HCl (Zofran Inj) 4 mg Q6H PRN IV 05/30/17 16:00 06/29/17 15:59 06/01/17 06:26 4 MG Insulin Aspart (novoLOG ASPART) SLIDING SCALE If C... ACHS SC 05/30/17 17:21 06/29/17 17:20 05/31/17 17:53 4 UNITS Potassium Chloride/Sodium Chloride 1,000 ml @ 100 mls/hr Q10H IV 05/30/17 16:52 06/29/17 16:51 06/01/17 08:24 100 MLS/HR Magnesium Sulfate 1 gm/Prmx 100 ml @ 100 mls/hr 1700,1800 IV 05/30/17 17:00 05/30/17 20:00 DC 05/30/17 21:31 100 MLS/HR Filgrastim (Neupogen Sq) 480 mcg TODAY@1800 SC 05/30/17 18:00 05/30/17 18:01 DC 05/30/17 17:51 480 MCG Vancomycin HCl 1400 mg/Sodium Chloride 528 ml @ 200 mls/hr Q14H IV 05/31/17 06:00 06/02/17 05:59 05/31/17 20:02 200 MLS/HR Lidocaine (Lidoderm Patch 5%) 1 patch QAM TD 05/31/17 11:45 06/30/17 11:44 06/01/17 08:28 1 PATCH Miscellaneous (Remove Lidoderm Patch) 1 ea DAILY@21 N/A 05/31/17 21:00 06/30/17 20:59 05/31/17 19:09 1 EA Prochlorperazine Edisylate 10 mg/ Syringe 10 ml @ 5 mls/min Q6H IV 05/31/17 14:00 06/30/17 13:59 06/01/17 08:25 5 MLS/MIN Filgrastim (Neupogen Sq) 480 mcg DAILY SC 05/31/17 13:45 06/30/17 13:44 06/01/17 08:35 480 MCG Ondansetron HCl 8 mg/Dextrose 54 ml @ 200 mls/hr Q8H IV 05/31/17 16:00 06/30/17 15:59 05/31/17 23:41 200 MLS/HR Heparin Sodium (Porcine) (Heparin 10 Unit/ ml 5 ml Flush) 5 ml PRN PRN FLUSH 05/31/17 23:45 06/30/17 23:44 06/01/17 05:27 5 ML Potassium Chloride 10 meq/ Prmx 100 ml @ 100 mls/hr Q1H IV 06/01/17 07:30 06/01/17 11:29 06/01/17 08:22 100 MLS/HR Magnesium Sulfate 1 gm/Prmx 100 ml @ 100 mls/hr TODAY@0730 ONCE IV 06/01/17 07:30 06/01/17 08:29 DC 06/01/17 08:23 100 MLS/HR Subjective She seems to be doing well. Afebrile. Anxious to get out of bed Review of Systems: Constitutional: Negative for weight loss, or night sweats Eyes: Negative for event change of vision ENT: Negative for epistaxis, nasal discharge, sore throat, or deafness Cardiovascular: Negative for chest pain, palpitations, dizziness, diaphoresis Respiratory: Negative for new shortness of breath,hemoptysis, or purulent cough Gastrointestinal: Negative for diarrhea, hematemesis, melena, nausea, vomiting , or dyspepsia Integumentary (skin): Negative for rash or jaundice discoloration Genitourinary: Negative for urinary frequency, hematuria, or dysuria Neurological: Negative for weakness, seizure activity, headache, or dizziness Lymphatic/Hematologic: Negative for petechiae, bleeding or new adenopathy Musculoskeletal: Negative for new joint or back pain Allergic/Immunologic: Negative for unusual rash or pruritis. Vital Signs Vital Signs Past 12 Hours Date Time Temp Pulse Resp B/P (MAP) Pulse Ox O2 Delivery O2 Flow Rate FiO2 06/01/17 07:04 36.8 83 18 145/75 (98) 92 Room Air 06/01/17 03:37 37.4 96 20 144/80 (101) 93 Room Air 06/01/17 00:00 Room Air 05/31/17 22:56 37.1 91 20 133/76 (95) 97 Room Air Physical Exam Constitutional: vitals are stable. Obese pleasant female Eyes: Eyes are POLLO EOMI without conjuctival erythema or icterus. ENT: External examination was negative for masses. Neck: Negative for masses or palpable thyromegaly Respiratory: Lung sounds were generally clear bilaterally Cardiovascular: Heart was RRR without significant murmur, gallops aoe rubs Gastrointestinal: No palpable hepatic or splenomegaly. The abdomen was soft with normal bowel sounds. Lymphatic system: there was no palpable peripheral lymphadenopathy Musculoskeletal System: The musculoskeletal system seemed concordant with age. Skin: The skin was negative for jaundice. Neurologic exam: The exam was negative for any focal findings. Deep tendon reflexes were equal and symmetrical. Psychiatric exam: Was essentially negative with normal mood and effect. Breast exam: Not done extremities: Marked edema 1-2+ bilateral nontender Laboratory Last 24 Hours Test 05/31/17 09:39 05/31/17 11:19 05/31/17 16:34 05/31/17 20:53 White Blood Count 0.43 K/uL Red Blood Count 2.60 M/uL Hemoglobin 7.7 g/dL Hematocrit 21.8 % Mean Corpuscular Volume 83.8 fL Mean Corpuscular Hemoglobin 29.6 pg Mean Corpuscular Hemoglobin Concent 35.3 g/dl Platelet Count 47 K/uL Mean Platelet Volume 9.2 fL Neutrophils (%) (Auto) 2.3 % Lymphocytes (%) (Auto) 44.2 % Monocytes (%) (Auto) 53.5 % Eosinophils (%) (Auto) 0.0 % Basophils (%) (Auto) 0.0 % Neutrophils # (Auto) 0.01 K/uL Lymphocytes # (Auto) 0.19 K/uL Monocytes # (Auto) 0.23 K/uL Eosinophils # (Auto) 0.00 K/uL Basophils # (Auto) 0.00 K/uL RDW Standard Deviation 43.2 fL RDW Coefficient of Variation 14.1 % Immature Granulocyte % (Auto) 0.0 % Immature Granulocyte # (Auto) 0.00 K/uL Nucleated RBC Absolute Count (auto) 0.02 K/uL Nucleated Red Blood Cells % 5.6 % Red Blood Cell Morphology Unremarkable Prothrombin Time 13.8 SECONDS Prothromb Time International Ratio 1.3 Activated Partial Thromboplast Time 32.2 SECONDS Partial Thromboplastin Ratio 1.2 Sodium Level 142 mmol/L Potassium Level 3.0 mmol/L Chloride Level 105 mmol/L Carbon Dioxide Level 31 mmol/L Anion Gap 6.0 mmol/L Blood Urea Nitrogen 11 mg/dl Creatinine 0.87 mg/dl Est Creatinine Clear Calc Drug Dose 63.6 ml/min Estimated GFR () 75.5 Estimated GFR (Non- 65.2 BUN/Creatinine Ratio 12.2 Random Glucose 156 mg/dl Calcium Level 7.8 mg/dl Magnesium Level 1.7 mg/dl Bedside Glucose 182 mg/dl 193 mg/dl 118 mg/dl Test 06/01/17 05:30 06/01/17 08:01 White Blood Count 1.96 K/uL Red Blood Count 2.76 M/uL Hemoglobin 8.1 g/dL Hematocrit 23.6 % Mean Corpuscular Volume 85.5 fL Mean Corpuscular Hemoglobin 29.3 pg Mean Corpuscular Hemoglobin Concent 34.3 g/dl Platelet Count 72 K/uL Mean Platelet Volume 10.4 fL RDW Standard Deviation 44.3 fL RDW Coefficient of Variation 14.5 % Nucleated RBC Absolute Count (auto) 0.12 K/uL Neutrophils % (Manual) 43.7 % Lymphocytes % (Manual) 36.6 % Monocytes % (Manual) 9.8 % Eosinophils % (Manual) 0.9 % Basophils % (Manual) 3.6 % Metamyelocytes % 0.9 % Myelocytes % 2.7 % Promyelocytes % 0.9 % Blast Cells % 0.9 % Nucleated Red Blood Cells % 6.0 % Neutrophils # (Manual) 0.86 K/uL Total Absolute Neutrophils 0.86 K/uL Lymphocytes # (Manual) 0.72 K/uL Total Absolute Lymphocytes 0.72 K/uL Monocytes # (Manual) 0.19 K/uL Eosinophils # (Manual) 0.02 K/uL Basophils # (Manual) 0.07 K/uL Metamyelocytes # 0.02 K/uL Myelocytes # 0.05 K/uL Promyelocytes # 0.02 K/uL Blast Cells # 0.02 K/uL Blood Smear Review Toxic Granulation 3+ Toxic Vacuolation 1+ Dohle Bodies 3+ Prothrombin Time 13.5 SECONDS Prothromb Time International Ratio 1.3 Activated Partial Thromboplast Time 30.8 SECONDS Partial Thromboplastin Ratio 1.2 Sodium Level 141 mmol/L Potassium Level 3.1 mmol/L Chloride Level 106 mmol/L Carbon Dioxide Level 28 mmol/L Anion Gap 7.0 mmol/L Blood Urea Nitrogen 7 mg/dl Creatinine 0.89 mg/dl Est Creatinine Clear Calc Drug Dose 62.1 ml/min Estimated GFR () 73.5 Estimated GFR (Non- 63.4 BUN/Creatinine Ratio 8.4 Random Glucose 112 mg/dl Calcium Level 7.8 mg/dl Magnesium Level 1.6 mg/dl Bedside Glucose 142 mg/dl Assessment & Plan Blood counts better today. Afebrile. E. coli in urine otherwise blood cultures are negative. We recommend that she get out of bed with help couple times a day at least. I suspect she should be able to be discharged the next day or 2. Will be scheduled to be followed up in our clinic next week. E. coli seen in urine
[2017-06-01] MEDS: INSULIN ASPART 100 UNITS/ML 3 ML PEN SC SCH ×4 (09:42→21:00)
[2017-06-01] MEDS: ONDANSETRON INJ 8 MG in DEXTROSE 5% 50ML 50 ML IV SCH ×2 (09:44→18:17)
[2017-06-01] MEDS: VANCOMYCIN INJ 1,400 MG in SODIUM CHLORIDE 0.9% 500ML 500 ML IV SCH (10:49)
[2017-06-01] MEDS ORDERED: PANTOprazole INJ 40 MG in SYRINGE 0 ML IV SCH (11:00)
[2017-06-01 11:12] VITALS: BP 134/69; PULSE 85; TEMP 36.4; O2SAT 96
--- NOTE | 2017-06-01 11:28 | Medical Consult ---
Consultation Date of Consultation: Jun 01, 2017. Attending Physician: Monica Lindsay MD History of Present Illness pt admitted with neutropenic fever. on chemo for b cell lymphoma. was placed on broad spectrum abx, tolerating well. cxr negative, blood cultures from 05/30 ngtd x 2 sets. urine culture with E. coli, UA negative. spoke with granddaughter who says she has h/o uti, infected stones. No abd imaging. no abd pain. initial wbc was 0.24, increased to 1.96 today with g csf but remains with low ANC. pt somewhat lethargic at this time, but arousable and appropriate. last fever was , 38.3. currently afebrile. no cp, sob, n/v/d. all remaining ros reviewed and are negative. on multiple prophylactic meds, on hold currently. all remaining ros reviewed and are negative. Past Medical/Surgical History Medical Problems: (1) Hypokalemia Status: Acute (2) Neutropenia Status: Acute (3) Pancytopenia Status: Acute (4) Sepsis Status: Acute (5) UTI (urinary tract infection) Status: Acute Family History No pertinent family history Social History Smoking Status: Never Smoker Smokeless Tobacco Use: No Alcohol Use: none Drug Use: none Marital Status: Occupation Status: retired Allergies Coded Allergies: Ciprofloxacin (Verified Allergy, Intermediate, RASH, 04/21/17) Phlebitis Penicillins (Verified Allergy, Mild, HIVES, 04/21/17) Current Inpatient Medications Current Inpatient Medications Medications (Trade) Dose Ordered Sig/[place] Route Start Time Stop Time Status Last Admin Dose Admin Imipenem/ Cilastatin Sodium 500 mg/Dextrose 110 ml @ 100 mls/hr Q6H IV 05/30/17 18:00 06/01/17 18:01 06/01/17 05:25 100 MLS/HR Azithromycin 500 mg/Dextrose 255 ml @ 125 mls/hr DAILY@2000 IV 05/30/17 20:00 06/01/17 19:59 05/31/17 20:02 125 MLS/HR Vancomycin HCl (Consult) 1 ea UD PRN N/A 05/30/17 15:00 06/29/17 14:59 Acetaminophen (Tylenol Tab) 650 mg Q4H PRN PO 05/30/17 16:00 06/29/17 15:59 Albuterol (Ventolin Hfa Inhaler) 2 puffs QID PRN INH 05/30/17 16:00 06/29/17 15:59 Allopurinol (Zyloprim Tab) 200 mg DAILY PO 05/31/17 08:00 06/30/17 08:59 06/01/17 08:27 200 MG Baclofen (Lioresal Tab) 20 mg BID PO 05/30/17 20:00 06/29/17 20:59 06/01/17 08:29 20 MG Bismuth Subsalicylate (Pepto-Bismol Susp) 15 ml QID PRN PO 05/30/17 16:00 06/29/17 15:59 Dicyclomine HCl (Bentyl Tab) 20 mg QID PRN PO 05/30/17 16:00 06/29/17 15:59 Dronabinol (Marinol Cap) 2.5 mg BID PO 05/30/17 20:00 06/29/17 20:59 06/01/17 08:34 2.5 MG Fluticasone Propionate (Flonase Nasal [place]) 2 sprays DAILY PRN VIGNESH 05/30/17 16:00 06/29/17 15:59 Acetaminophen/ Hydrocodone Bitart ([place] 5/325 Tab) 1 tab Q6 PRN PO 05/30/17 16:00 06/13/17 15:59 06/01/17 06:34 1 TAB Meclizine HCl (Antivert Tab) 25 mg TID PRN PO 05/30/17 16:00 06/29/17 15:59 Oxybutynin Chloride (Ditropan Tab) 10 mg DAILY PO 05/31/17 08:00 06/30/17 08:59 06/01/17 08:27 10 MG Senna/Docusate Sodium (Senokot S Tab) 2 tab BID PRN PO 05/30/17 16:00 06/29/17 15:59 Vancomycin HCl (Vancomycin Oral Soln) 125 mg QID PO 05/30/17 17:00 06/13/17 16:59 Ondansetron HCl (Zofran Inj) 4 mg Q6H PRN IV 05/30/17 16:00 06/29/17 15:59 06/01/17 06:26 4 MG Insulin Aspart (novoLOG ASPART) SLIDING SCALE If C... ACHS SC 05/30/17 17:21 06/29/17 17:20 06/01/17 09:42 5 UNITS Glucose (Glucose 40% Gel) UD PRN PO 05/30/17 16:00 06/29/17 15:59 Glucose (Glucose Chew Tab) 1 tabs UD PRN PO 05/30/17 16:00 06/29/17 15:59 Dextrose (Dextrose 50% 50ML Syringe) 50 ml UD PRN IV 05/30/17 16:00 06/29/17 15:59 Glucagon (Glucagon Inj) 1 mg UD PRN SQ 05/30/17 16:00 06/29/17 15:59 Potassium Chloride/Sodium Chloride 1,000 ml @ 100 mls/hr Q10H IV 05/30/17 16:52 06/29/17 16:51 06/01/17 08:24 100 MLS/HR Vancomycin HCl 1400 mg/Sodium Chloride 528 ml @ 200 mls/hr Q14H IV 05/31/17 06:00 06/02/17 05:59 06/01/17 10:49 200 MLS/HR Raspberry (Raspberry Syrup 5ml Cup) 5 ml QID PO 05/30/17 17:00 06/13/17 16:59 Lidocaine (Lidoderm Patch 5%) 1 patch QAM TD 05/31/17 11:45 06/30/17 11:44 06/01/17 08:28 1 PATCH Miscellaneous (Remove Lidoderm Patch) 1 ea DAILY@21 N/A 05/31/17 21:00 06/30/17 20:59 05/31/17 19:09 1 EA Pantoprazole Sodium 40 mg/ Syringe 10 ml @ 5 mls/min DAILY@11 IV 06/01/17 11:00 07/01/17 10:59 06/01/17 10:49 5 MLS/MIN Prochlorperazine Edisylate 10 mg/ Syringe 10 ml @ 5 mls/min Q6H IV 05/31/17 14:00 06/30/17 13:59 06/01/17 08:25 5 MLS/MIN Filgrastim (Neupogen Sq) 480 mcg DAILY SC 05/31/17 13:45 06/30/17 13:44 06/01/17 08:35 480 MCG Ondansetron HCl 8 mg/Dextrose 54 ml @ 200 mls/hr Q8H IV 05/31/17 16:00 06/30/17 15:59 06/01/17 09:44 200 MLS/HR Heparin Sodium (Porcine) (Heparin 10 Unit/ ml 5 ml Flush) 5 ml PRN PRN FLUSH 05/31/17 23:45 06/30/17 23:44 06/01/17 05:27 5 ML Potassium Chloride 10 meq/ Prmx 100 ml @ 100 mls/hr Q1H IV 06/01/17 07:30 06/01/17 11:29 06/01/17 10:56 100 MLS/HR Physical Exam Date Time Temp Pulse Resp B/P (MAP) Pulse Ox O2 Delivery O2 Flow Rate FiO2 06/01/17 11:12 36.4 85 17 134/69 (90) 96 Room Air 06/01/17 07:04 36.8 83 18 145/75 (98) 92 Room Air 06/01/17 03:37 37.4 96 20 144/80 (101) 93 Room Air 06/01/17 00:00 Room Air 05/31/17 22:56 37.1 91 20 133/76 (95) 97 Room Air 05/31/17 20:00 Room Air 05/31/17 19:16 37.1 87 18 153/74 (100) 95 Room Air 05/31/17 15:52 36.9 99 20 133/78 (96) 92 Room Air 05/31/17 15:40 Room Air General Appearance: WD/WN, no apparent distress Head: normocephalic, atraumatic Eyes: normal inspection, EOMI Neck: supple Respiratory/Chest: lungs clear, normal breath sounds, no respiratory distress, + decreased breath sounds Cardiovascular: regular rate, rhythm, no edema Abdomen/GI: non tender, soft Extremities/Musculoskelatal: no pedal edema Neurologic/Psych: alert, oriented x 3 Skin: normal color, + pertinent finding (right chest wall iv c/d/i, no warmth, erythema, edema, induation) Laboratory Results Item Value Date Time Urine Culture - Final Complete 05/30/17 1450 Urine,Catheterized Escherichia Coli Blood Culture - Preliminary Resulted 05/30/17 1359 Blood NO GROWTH TO DATE. Blood Culture - Preliminary Resulted 05/30/17 1525 Blood NO GROWTH TO DATE. Last 24 Hours Test 05/31/17 16:34 05/31/17 20:53 06/01/17 05:30 06/01/17 08:01 Bedside Glucose 193 mg/dl 118 mg/dl 142 mg/dl White Blood Count 1.96 K/uL Red Blood Count 2.76 M/uL Hemoglobin 8.1 g/dL Hematocrit 23.6 % Mean Corpuscular Volume 85.5 fL Mean Corpuscular Hemoglobin 29.3 pg Mean Corpuscular Hemoglobin Concent 34.3 g/dl Platelet Count 72 K/uL Mean Platelet Volume 10.4 fL RDW Standard Deviation 44.3 fL RDW Coefficient of Variation 14.5 % Nucleated RBC Absolute Count (auto) 0.12 K/uL Neutrophils % (Manual) 43.7 % Lymphocytes % (Manual) 36.6 % Monocytes % (Manual) 9.8 % Eosinophils % (Manual) 0.9 % Basophils % (Manual) 3.6 % Metamyelocytes % 0.9 % Myelocytes % 2.7 % Promyelocytes % 0.9 % Blast Cells % 0.9 % Nucleated Red Blood Cells % 6.0 % Neutrophils # (Manual) 0.86 K/uL Total Absolute Neutrophils 0.86 K/uL Lymphocytes # (Manual) 0.72 K/uL Total Absolute Lymphocytes 0.72 K/uL Monocytes # (Manual) 0.19 K/uL Eosinophils # (Manual) 0.02 K/uL Basophils # (Manual) 0.07 K/uL Metamyelocytes # 0.02 K/uL Myelocytes # 0.05 K/uL Promyelocytes # 0.02 K/uL Blast Cells # 0.02 K/uL Blood Smear Review Toxic Granulation 3+ Toxic Vacuolation 1+ Dohle Bodies 3+ Prothrombin Time 13.5 SECONDS Prothromb Time International Ratio 1.3 Activated Partial Thromboplast Time 30.8 SECONDS Partial Thromboplastin Ratio 1.2 Sodium Level 141 mmol/L Potassium Level 3.1 mmol/L Chloride Level 106 mmol/L Carbon Dioxide Level 28 mmol/L Anion Gap 7.0 mmol/L Blood Urea Nitrogen 7 mg/dl Creatinine 0.89 mg/dl Est Creatinine Clear Calc Drug Dose 62.1 ml/min Estimated GFR () 73.5 Estimated GFR (Non- 63.4 BUN/Creatinine Ratio 8.4 Random Glucose 112 mg/dl Calcium Level 7.8 mg/dl Magnesium Level 1.6 mg/dl Assessment & Plan (1) Neutropenic fever Assessment & Plan: fever resolved, neutropenia resolving, heme onc following. (2) E-coli UTI Assessment & Plan: will change abx to ctx - likely 7-10 days total, narrow abx. spoke with grand daughter and primary. follow bc, negative to date.
[2017-06-01] MEDS: CEFTRIAXONE SOD INJ 2,000 MG in DEXTROSE 5% 50ML 50 ML IV SCH (13:06)
[2017-06-01 15:45] VITALS: BP 109/74; PULSE 90; TEMP 36.4; O2SAT 92
[2017-06-01 19:46] VITALS: BP 156/82; PULSE 88; TEMP 36.8; O2SAT 94
[2017-06-02] VITALS (12 sets, daily range): BP systolic 131–173; BP diastolic 67–80; PULSE 81–91; TEMP 36.4–37; O2SAT 91–97; BMI 44.9
[2017-06-02] MEDS: ONDANSETRON INJ 8 MG in DEXTROSE 5% 50ML 50 ML IV SCH ×3 (00:51→17:27)
[2017-06-02] MEDS ORDERED: PROCHLORPERAZINE INJ 10 MG in SYRINGE 8 ML IV PRN (02:00)
[2017-06-02] MEDS: NSS + 20MEQ KCL 1000ML 1,000 ML IV SCH ×2 (04:36→14:46)
[2017-06-02] MEDS: HYDROCODONE/ACETAMOPHEN 5/325MG TAB PO PRN ×2 (05:13→22:17)
[2017-06-02] MEDS: ONDANSETRON INJ 2 MG/ML 2 ML VIAL IV PRN (05:19)
[2017-06-02 06:25] LABS: HEMATOCRIT 22.5 % (37-47); MEAN CELL VOLUME 85.9 fL (80-100); MEAN CORPUSCULAR HGB CONC 33.8 g/dl (32-36); MEAN PLATELET VOLUME 9.6 fL (7.4-10.4); PLATELET COUNT 81 K/uL (130-400); RED BLOOD COUNT 2.62 M/uL (4.2-5.4); WHITE BLOOD COUNT 9.44 K/uL (4.8-10.8)
[2017-06-02] MEDS: INSULIN ASPART 100 UNITS/ML 3 ML PEN SC SCH ×4 (06:30→21:00)
[2017-06-02 06:58] LABS: BUN/CREATININE RATIO 6.5 (10-20); CALCIUM 7.7 mg/dl (8.5-10.1); MAGNESIUM 1.8 mg/dl (1.8-2.4); POTASSIUM 3.5 mmol/L (3.5-5.1)
[2017-06-02 07:07] LABS: COMPLETE YES; DOHLE BODIES 1+; LYMPH ABS # 0.83 K/uL (1.2-3.4); LYMPHOCYTE % 8.8 %; MYELOCYTE % 1.8 %; NEUTROPHILS % 85.9 %; TOXIC GRANULATION 2+; VACUOLIZATION 1+
[2017-06-02] MEDS: MECLIZINE HCL 25 MG TAB PO PRN (07:56)
[2017-06-02] MEDS: OXYBUTYNIN CHLORIDE 5 MG TAB PO SCH (07:56)
[2017-06-02] MEDS: BACLOFEN TAB 20 MG TAB PO SCH ×2 (07:56→21:03)
[2017-06-02] MEDS: ALLOPURINOL 100 MG TAB PO SCH (07:57)
[2017-06-02] MEDS: VANCOMYCIN HCL 125 MG/2.5ML SOLN PO SCH ×4 (07:57→20:00)
[2017-06-02] MEDS: RASPBERRY SYRUP 5 ML UDP PO SCH ×4 (07:58→20:00)
[2017-06-02] MEDS: LIDODERM (LIDOCAINE) PATCH 5% TD SCH (07:58)
[2017-06-02] MEDS: DRONABINOL 2.5 MG CAP PO SCH ×2 (08:02→21:03)
[2017-06-02] MEDS: FILGRASTIM 480 MCG/1.6 ML VIAL SC SCH (08:03)
[2017-06-02] MEDS: PANTOprazole SOD 40 MG TAB PO SCH (08:15)
--- NOTE | 2017-06-02 09:13 | Hematology/Oncology Prog Note ---
Hematology/Onc Progress Note Date of Service Jun 02, 2017. Diagnoses High-grade B-cell lymphoma Pancytopenia secondary to therapy Medications Medications Administered Medications (Trade) Dose Ordered Sig/[place] Route Start Time Stop Time Status Last Admin Dose Admin Acetaminophen (Tylenol Tab) 1,000 mg NOW STAT PO 05/30/17 13:21 05/30/17 13:22 DC 05/30/17 13:51 1,000 MG Ondansetron HCl (Zofran Inj) 4 mg NOW STAT IV 05/30/17 13:29 05/30/17 13:31 DC 05/30/17 13:51 4 MG Heparin Sodium (Porcine) (Heparin 10 Unit/ ml 5 ml Flush) 5 ml STK-MED ONCE .ROUTE 05/30/17 13:50 05/30/17 13:51 DC 05/30/17 13:50 5 ML Potassium Chloride (Kcl 10 Meq / Wtr) 10 meq NOW STAT IV 05/30/17 14:12 05/30/17 14:13 DC 05/30/17 15:35 10 MEQ Cefepime HCl 2000 mg/Dextrose 112.5 ml @ 200 mls/hr NOW STAT IV 05/30/17 14:12 05/30/17 14:45 DC 05/30/17 15:35 200 MLS/HR Sodium Chloride 500 ml @ 999 mls/hr Q31M STAT IV 05/30/17 14:12 05/30/17 14:42 DC 05/30/17 14:12 999 MLS/HR Imipenem/ Cilastatin Sodium 500 mg/Dextrose 110 ml @ 100 mls/hr Q6H IV 05/30/17 18:00 06/01/17 11:30 DC 06/01/17 05:25 100 MLS/HR Azithromycin 500 mg/Dextrose 255 ml @ 125 mls/hr DAILY@2000 IV 05/30/17 20:00 06/01/17 11:30 DC 05/31/17 20:02 125 MLS/HR Vancomycin HCl 2800 mg/Sodium Chloride 556 ml @ 200 mls/hr 1530 IV 05/30/17 15:30 05/30/17 18:17 DC 05/30/17 15:58 200 MLS/HR Acetaminophen (Tylenol Tab) 650 mg Q4H PRN PO 05/30/17 16:00 06/29/17 15:59 06/02/17 06:18 650 MG Allopurinol (Zyloprim Tab) 200 mg DAILY PO 05/31/17 08:00 06/30/17 08:59 06/02/17 07:57 200 MG Baclofen (Lioresal Tab) 20 mg BID PO 05/30/17 20:00 06/29/17 20:59 06/02/17 07:56 20 MG Dronabinol (Marinol Cap) 2.5 mg BID PO 05/30/17 20:00 06/29/17 20:59 06/02/17 08:02 2.5 MG Acetaminophen/ Hydrocodone Bitart (Center 5/325 Tab) 1 tab Q6 PRN PO 05/30/17 16:00 06/13/17 15:59 06/02/17 05:13 1 TAB Meclizine HCl (Antivert Tab) 25 mg TID PRN PO 05/30/17 16:00 06/29/17 15:59 06/02/17 07:56 25 MG Oxybutynin Chloride (Ditropan Tab) 10 mg DAILY PO 05/31/17 08:00 06/30/17 08:59 06/02/17 07:56 10 MG Potassium Chloride 10 meq/ Prmx 100 ml @ 100 mls/hr 1800,1900,2000,2100 IV 05/30/17 18:00 05/31/17 00:00 DC 05/31/17 04:43 100 MLS/HR Ondansetron HCl (Zofran Inj) 4 mg Q6H PRN IV 05/30/17 16:00 06/29/17 15:59 06/02/17 05:19 4 MG Insulin Aspart (novoLOG ASPART) SLIDING SCALE If C... ACHS SC 05/30/17 17:21 06/29/17 17:20 06/01/17 18:38 1 UNITS Potassium Chloride/Sodium Chloride 1,000 ml @ 100 mls/hr Q10H IV 05/30/17 16:52 06/29/17 16:51 06/02/17 04:36 100 MLS/HR Magnesium Sulfate 1 gm/Prmx 100 ml @ 100 mls/hr 1700,1800 IV 05/30/17 17:00 05/30/17 20:00 DC 05/30/17 21:31 100 MLS/HR Filgrastim (Neupogen Sq) 480 mcg TODAY@1800 SC 05/30/17 18:00 05/30/17 18:01 DC 05/30/17 17:51 480 MCG Vancomycin HCl 1400 mg/Sodium Chloride 528 ml @ 200 mls/hr Q14H IV 05/31/17 06:00 06/01/17 11:30 DC 06/01/17 10:49 200 MLS/HR Lidocaine (Lidoderm Patch 5%) 1 patch QAM TD 05/31/17 11:45 06/30/17 11:44 06/02/17 07:58 1 PATCH Miscellaneous (Remove Lidoderm Patch) 1 ea DAILY@21 N/A 05/31/17 21:00 06/30/17 20:59 06/01/17 20:09 1 EA Pantoprazole Sodium 40 mg/ Syringe 10 ml @ 5 mls/min DAILY@11 IV 06/01/17 11:00 06/01/17 20:59 DC 06/01/17 10:49 5 MLS/MIN Prochlorperazine Edisylate 10 mg/ Syringe 10 ml @ 5 mls/min Q6H IV 05/31/17 14:00 06/01/17 20:59 DC 06/01/17 20:03 5 MLS/MIN Filgrastim (Neupogen Sq) 480 mcg DAILY SC 05/31/17 13:45 06/30/17 13:44 06/02/17 08:03 480 MCG Ondansetron HCl 8 mg/Dextrose 54 ml @ 200 mls/hr Q8H IV 05/31/17 16:00 06/30/17 15:59 06/02/17 08:02 200 MLS/HR Heparin Sodium (Porcine) (Heparin 10 Unit/ ml 5 ml Flush) 5 ml PRN PRN FLUSH 05/31/17 23:45 06/30/17 23:44 06/02/17 05:31 5 ML Potassium Chloride 10 meq/ Prmx 100 ml @ 100 mls/hr Q1H IV 06/01/17 07:30 06/01/17 11:29 DC 06/01/17 12:06 100 MLS/HR Magnesium Sulfate 1 gm/Prmx 100 ml @ 100 mls/hr TODAY@0730 ONCE IV 06/01/17 07:30 7/5/17 08:29 DC 06/01/17 08:23 100 MLS/HR Ceftriaxone Sodium 2000 mg/ Dextrose 70 ml @ 100 mls/hr Q24H IV 06/01/17 12:00 06/11/17 11:29 06/01/17 13:06 100 MLS/HR Pantoprazole Sodium (Protonix Tab) 40 mg QAM PO 06/02/17 08:00 07/02/17 07:59 06/02/17 08:15 40 MG Subjective She complains of just not feeling very vibrant. Complains of some lightheadedness. Review of Systems: Constitutional: Negative for night sweats, or fever Eyes: Negative for event change of vision ENT: Negative for epistaxis, nasal discharge, sore throat, or deafness Cardiovascular: Negative for chest pain, palpitations, dizziness, diaphoresis Respiratory: Negative for new shortness of breath,hemoptysis, or purulent cough Gastrointestinal: Negative for diarrhea, hematemesis, melena, nausea, vomiting , or dyspepsia Integumentary (skin): Negative for rash or jaundice discoloration Genitourinary: Negative for urinary frequency, hematuria, or dysuria Neurological: Negative for weakness, seizure activity, headache, or dizziness. States she feels from time to time and she has trouble holding the spoon in her right hand while she eats breakfast this morning Lymphatic/Hematologic: Negative for petechiae, bleeding or new adenopathy Musculoskeletal: Negative for new joint or back pain Allergic/Immunologic: Negative for unusual rash or pruritis. Vital Signs Vital Signs Past 12 Hours Date Time Temp Pulse Resp B/P (MAP) Pulse Ox O2 Delivery O2 Flow Rate FiO2 06/02/17 08:00 Room Air 06/02/17 07:48 36.8 83 18 131/72 (91) 93 Room Air 06/02/17 04:30 36.9 91 16 139/80 (99) 94 06/02/17 00:00 36.9 88 20 131/67 (88) 91 Room Air 06/02/17 00:00 Room Air Physical Exam Constitutional: vitals are stable. Obese mildly alopecic female. Vitals stable Eyes: Eyes are POLLO EOMI without conjuctival erythema or icterus. ENT: External examination was negative for masses. Neck: Negative for masses or palpable thyromegaly Respiratory: Lung sounds were generally clear bilaterally Cardiovascular: Heart was RRR without significant murmur, gallops aoe rubs Gastrointestinal: No palpable hepatic or splenomegaly. The abdomen was soft with normal bowel sounds. Lymphatic system: there was no palpable peripheral lymphadenopathy Musculoskeletal System: The musculoskeletal system seemed concordant with age. Skin: The skin was negative for jaundice. Neurologic exam: The exam was negative for any focal findings. Deep tendon reflexes were equal and symmetrical. Psychiatric exam: Was essentially negative with normal mood and effect. Breast exam: Not done Extremities: Bilateral lower extremity edema 2+ nontender Laboratory Last 24 Hours Test 06/01/17 11:41 06/01/17 16:44 06/01/17 20:19 06/02/17 05:25 Bedside Glucose 139 mg/dl 156 mg/dl 146 mg/dl White Blood Count 9.44 K/uL Red Blood Count 2.62 M/uL Hemoglobin 7.6 g/dL Hematocrit 22.5 % Mean Corpuscular Volume 85.9 fL Mean Corpuscular Hemoglobin 29.0 pg Mean Corpuscular Hemoglobin Concent 33.8 g/dl Platelet Count 81 K/uL Mean Platelet Volume 9.6 fL RDW Standard Deviation 46.9 fL RDW Coefficient of Variation 15.1 % Nucleated RBC Absolute Count (auto) 0.23 K/uL Neutrophils % (Manual) 85.9 % Lymphocytes % (Manual) 8.8 % Monocytes % (Manual) 3.5 % Myelocytes % 1.8 % Nucleated Red Blood Cells % 2.5 % Neutrophils # (Manual) 8.11 K/uL Total Absolute Neutrophils 8.11 K/uL Lymphocytes # (Manual) 0.83 K/uL Total Absolute Lymphocytes 0.83 K/uL Monocytes # (Manual) 0.33 K/uL Myelocytes # 0.17 K/uL Toxic Granulation 2+ Toxic Vacuolation 1+ Dohle Bodies 1+ Sodium Level 144 mmol/L Potassium Level 3.5 mmol/L Chloride Level 110 mmol/L Carbon Dioxide Level 26 mmol/L Anion Gap 8.0 mmol/L Blood Urea Nitrogen 7 mg/dl Creatinine 1.00 mg/dl Est Creatinine Clear Calc Drug Dose 55.3 ml/min Estimated GFR () 63.8 Estimated GFR (Non- 55.1 BUN/Creatinine Ratio 6.5 Random Glucose 110 mg/dl Calcium Level 7.7 mg/dl Magnesium Level 1.8 mg/dl Test 06/02/17 07:38 Bedside Glucose 130 mg/dl Assessment & Plan Blood counts continue to improve. Hemoglobin is 7.6. She may need transfused with 1 unit of irradiated blood. All blood products that are given should be irradiated. Physical therapy should now be involved. She has a follow-up in our clinic. G-CSF should now stop. We will sign off for now but please do not hesitate to reconsult if needed.
[2017-06-02] MEDS: CEFTRIAXONE SOD INJ 2,000 MG in DEXTROSE 5% 50ML 50 ML IV SCH (12:08)
--- NOTE | 2017-06-02 12:08 | Clinical Documentation Query ---
QUERY 1 OF [address] LEDEZMA, In your clinical opinion is this patient being managed for: (x ) Sepsis, POA in the setting of E coli UTI in a pt with NHL ( ) Other explanation of clinical findings (Please Explain) ( ) Unable to determine (Please Define) ( ) Need to Discuss ( ) Not Agree The medical record reflects the following clinical findings, treatment, and risk factors. Clinical Indicators: 77 yo female presenting with fever and abnormal blood counts. Found to have an E coli UTI. VS 38.3-102-15,120/70. WBC 0.24, lactic acid 2.1 Treatment:IV fluids, IV cefepime, IV vancomycin, blood and urine cx, IV rocephin, IV azithromycin, ID and hem/onc consults Risk Factors: NHL with recent chemotherapy/immunocompromised, UTI QUERY 2 OF 2 In your clinical opinion is this patient being managed for: ( x ) pancytopenia due to chemotherapy ( ) Other explanation of clinical findings (Please Explain) ( ) Unable to determine (Please Define) ( ) Need to Discuss ( ) Not Agree The medical record reflects the following clinical findings, treatment, and risk factors. Clinical Indicators: WBC 0.24, Hgb 7.2, Hct 21, plts 17, Treatment:2 U PRBC, 2U plts, daily CBC, hem/onc consult, neutropenic precautions Risk Factors: NHL with recent chemo (approx 6 days ago per report) Please clarify and document your clinical opinion in the progress notes and discharge summary. Terms such as "probable", "suspected", "likely", "questionable", "possible", or "still to be ruled out" are acceptable. IF IN AGREEMENT, YOU MUST DOCUMENT ABOVE DIAGNOSTIC STATEMENT IN DAILY PROGRESS NOTES AND DISCHARGE SUMMARY. This document is not part of the patient's record. Thank You, Lucila Ryan, RAMIRO [phone]
--- NOTE | 2017-06-02 12:11 | Clinical Documentation Query ---
QUERY 1 OF 2 CLINICAL DOCUMENTATION QUERY Ms. PETERSEN, In your clinical opinion is this patient being managed for: (x ) Sepsis, POA in the setting of E coli UTI in a pt with NHL ( ) Other explanation of clinical findings (Please Explain) ( ) Unable to determine (Please Define) ( ) Need to Discuss ( ) Not Agree The medical record reflects the following clinical findings, treatment, and risk factors. Clinical Indicators: 77 yo female presenting with fever and abnormal blood counts. Found to have an E coli UTI. VS 38.3-102-15,120/70. WBC 0.24, lactic acid 2.1 Treatment:IV fluids, IV cefepime, IV vancomycin, blood and urine cx, IV rocephin, IV azithromycin, ID consult, hem/onc consult Risk Factors: NHL with recent chemotherapy/immunocompromised, UTI QUERY 2 OF 2 In your clinical opinion is this patient being managed for: ( x ) pancytopenia due to chemotherapy ( ) Other explanation of clinical findings (Please Explain) ( ) Unable to determine (Please Define) ( ) Need to Discuss ( ) Not Agree The medical record reflects the following clinical findings, treatment, and risk factors. Clinical Indicators: WBC 0.24, Hgb 7.2, Hct 21, plts 17, Treatment:2 U PRBC, 2U plts, daily CBC, hem/onc consult, neutropenic precautions Risk Factors: NHL with recent chemo (approx 6 days ago per report) Please clarify and document your clinical opinion in the progress notes and discharge summary. Terms such as "probable", "suspected", "likely", "questionable", "possible", or "still to be ruled out" are acceptable. IF IN AGREEMENT, YOU MUST DOCUMENT ABOVE DIAGNOSTIC STATEMENT IN DAILY PROGRESS NOTES AND DISCHARGE SUMMARY. This document is not part of the patient's record. Thank You, Lucila Ryan, RN [phone]
--- NOTE | 2017-06-02 12:27 | Hospitalist Progress Note ---
Hospitalist Progress Note Date of Service Jun 02, 2017. (Tamie Franklin, CHIVO) Subjective Pt evaluation today including: conversation w/ patient, physical exam, chart review, lab review, review of studies Pain: none PO Intake: Fair Voiding: rangel catheter in place The patient was seen and examined this morning. Pt reports feeling not as good as yesterday, she feels tired today and feels like she cant get comfortable in bed. She also reports it as "foggy" but denies lightheadedness or dizziness. Pt notes she got a [place] tablet overnight, around 0500 for lower back pain. Her sister is in the room and reports she went into a deep sleep. Pt denies bad low back pain at this time. PT was in the room earlier but she was too tired to work with them, but is agreeable to it later this afternoon. She denies fevers, sweats, chills, cp, sob, abd pain. Her nausea has improved but still slightly presents, denies vomiting or dry heaves. Additional Comments: ROS: 6 point ROS reviewed and negative. (Tamie Franklin, CHIVO) Objective Vital Signs Date Time Temp Pulse Resp B/P (MAP) Pulse Ox O2 Delivery O2 Flow Rate FiO2 06/02/17 08:00 Room Air 06/02/17 07:48 36.8 83 18 131/72 (91) 93 Room Air 06/02/17 04:30 36.9 91 16 139/80 (99) 94 06/02/17 00:00 36.9 88 20 131/67 (88) 91 Room Air 06/02/17 00:00 Room Air 06/01/17 20:00 Room Air 06/01/17 19:46 36.8 88 18 156/82 (106) 94 Room Air 06/01/17 15:45 Room Air 06/01/17 15:45 36.4 90 17 109/74 (86) 92 Room Air (Tamie Franklin, LANAC) Physical Exam General Appearance: WD/WN, no apparent distress, + obese, + pertinent finding ( fatigued) Eyes: PERRL, EOMI ENT: hearing grossly normal, pharynx normal Neck: supple, no JVD Respiratory/Chest: chest non-tender, no respiratory distress, no accessory muscle use, + pertinent finding (On 2 L via NC, breath sounds are diminished at bilateral bases. ) Cardiovascular: + tachycardia (slightly), + pertinent finding Abdomen: normal bowel sounds, non tender, soft, no organomegaly Extremities: + pedal edema (2+ pitting in RLE, chronic venous stasis changes in the LLE with 1+ pitting edema. Calfs are nontender. ) Neurologic/Psychiatric: oriented x 3, + pertinent finding (fatigued but alert when spoken to, follows commands, thought she was at [place] initially but then corrected herself. ) Skin: warm/dry (Tamie Franklin, CHIVO) Laboratory Results Last 24 Hours Test 06/01/17 16:44 06/01/17 20:19 06/02/17 05:25 06/02/17 07:38 Bedside Glucose 156 mg/dl 146 mg/dl 130 mg/dl White Blood Count 9.44 K/uL Red Blood Count 2.62 M/uL Hemoglobin 7.6 g/dL Hematocrit 22.5 % Mean Corpuscular Volume 85.9 fL Mean Corpuscular Hemoglobin 29.0 pg Mean Corpuscular Hemoglobin Concent 33.8 g/dl Platelet Count 81 K/uL Mean Platelet Volume 9.6 fL RDW Standard Deviation 46.9 fL RDW Coefficient of Variation 15.1 % Nucleated RBC Absolute Count (auto) 0.23 K/uL Neutrophils % (Manual) 85.9 % Lymphocytes % (Manual) 8.8 % Monocytes % (Manual) 3.5 % Myelocytes % 1.8 % Nucleated Red Blood Cells % 2.5 % Neutrophils # (Manual) 8.11 K/uL Total Absolute Neutrophils 8.11 K/uL Lymphocytes # (Manual) 0.83 K/uL Total Absolute Lymphocytes 0.83 K/uL Monocytes # (Manual) 0.33 K/uL Myelocytes # 0.17 K/uL Toxic Granulation 2+ Toxic Vacuolation 1+ Dohle Bodies 1+ Sodium Level 144 mmol/L Potassium Level 3.5 mmol/L Chloride Level 110 mmol/L Carbon Dioxide Level 26 mmol/L Anion Gap 8.0 mmol/L Blood Urea Nitrogen 7 mg/dl Creatinine 1.00 mg/dl Est Creatinine Clear Calc Drug Dose 55.3 ml/min Estimated GFR () 63.8 Estimated GFR (Non- 55.1 BUN/Creatinine Ratio 6.5 Random Glucose 110 mg/dl Calcium Level 7.7 mg/dl Magnesium Level 1.8 mg/dl Test 06/02/17 11:26 Bedside Glucose 189 mg/dl (Tamie Franklin, CHIVO) Assessment and Plan This is a 77 yo F with PMHx of B cell lymphoma, 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 diff, HTN ,gout, hypokalemia and hypophoshatemia who presents after having lab work drawn at the [facility] at [facility] showing diminished white count. She has an extensive medical history in the past month being at [place] for the majority of April, and just recently being discharged to the [facility] at [facility]. Initially the patient was seen here at [facility] and found to have a large left sided staghorn calculi, so was transferred to [place] for surgical consultation. 04/21/17 a ureteral stent was placed, which is still there. While there the patient developed acute respiratory distress which was considered to be secondary to chemotherapy, but was then found to have a new onset PE, with a hx of chronic DVT in LLE, so IVC filter was placed. She is no longer on coumadin. She had her first chemotherapy for newly diagnosed Large B cell lymphoma from 04/28-05/02 with dose adjusted E-POCH along with intrathecal methotrexate injection. A brown tunnelled catheter was placed during her stay. Her second cycle of chemotherapy was with R-CHOP on 05/19. She was discharged to the [facility] on 05/20. She presented with febrile neutropenia with Tmax of 38.3 at time of admission, which appears to be due to urinary tract infection with E.coli growing in urine culture. Neutropenic fever with ANC=10 at time of admission - Appears source is urinary tract as Ucx is growing E. coli - ID consulted, plan to transition to rocephin IV for now to de-escalate abx therapy- continue to total a 7 day course (day 4 of abx) - regarding prophylactic antibiotics: I spoke with Dr. Dexter & Dr. Fajardo; plan on the following: bactrim DS 1 tab MTh, acyclovir 200 mg TID, and fluconazole 100 mg QD after course of rocephin is complete for UTI. - D/c neupogen 480 mg sQ inj as her ANC is > 1000. - Pt reports improvement in nausea- zofran 8 mg Q8H and compazine 10 mg prn - Continue protonix inj - s/p 1U PRBCs and 2 U of platelets transfused 05/31. 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 Pt had a Brown tunneled catheter placed prior to the 2nd cycle of chemotherapy with R-CHOP completed on 05/19. - Pt had been on a prophylactic regimen with cipro, bactrim, acylovir and fluconazole as an outpatient regimen, will hold on this in the setting of neutropenic fever. - ID recs above - Heme consult- appreciate recs Chronic DVT of the LLE and PE found [place] [facility] Pt had IVC filter placed ~4weeks ago- no longer on anticoagulation. Recent urinary tract infection and stent placement for staghorn calculi - April 21 pt was admitted to [facility] and found to have staghorn calc, was transferred [place] [facility] [place] and had a L ureteral stent placed same day. It is currently still in place. Family reports urology wont remove the stent due to pancytopenia and risk of infection. Pt reports she can feel the stent. - Urine cx with E.coli - Infectious disease consulted - appreciate recs - Cont IVFs for now Electrolyte abnormalities/hypokalemia/hypomagnesemia - Repleted via IV potassium - K+ is 3.5 today - Repleted via 1 g IV magnesium Diabetes mellitus type II - hold Januvia - Continue ISS with Accu-Cheks ACHS with novolog - glucose seems to be running in 130s-170s range C. difficile history - ID recs continuing oral vanc for 7 days past the finish date of rocephin. - continue vancomycin 125 mg po QID for prophylactic measures since getting multiple IV abx. Pt is having difficulty with oral intake due to nausea, hopefully around the clock antiemetic improve this. - Consider probiotic if can tolerate PO. Hypertension - hold furosemide 20 mg daily and valsartan 160 mg daily. Gout - continue allopurinol 200 mg by mouth daily. Appetite stimulant - continue Marinol 2.5 mg by mouth twice a day - Continue fluids with potassium - Nutrition consultation may be warranted if her appetite doesn't improve. Pt reports not eating for days now d/t nausea. Chronic back pain - will order a lidocaine patch as the pt uses this as an outpatient. DVT ppx: teds, scds, no chemical anticoagulation with thrombocytopenia. CODE STATUS: FULL CODE Disposition: From the [facility], to help with discharge planning. (Tamie Franklin PA-C) Reviewed: Pt Seen/Exam by Me (Monica Lindsay MD) History Physician Cryptologic Supervisor Supervision Note: I interviewed and examined the patient. Discussed with ABELARDO Franklin and agree with findings and plan as documented in the note. Any exceptions or clarifications are listed here: Very sleepy today likely from compazine ATC. Not nauseated and ate some food today, was OOB to chair. Received med rec from [place]. Was not on acyclovir , diflucan, bactrim, or Cipro. She was supposed to be on po Vanco through 06/06 VSS Obese, NAD, appears pale RRR no mgr CTAB no wcr Abd soft NT ND Ext 1+ pitting edema bilat with venous stasis changes 77 yo female with high-grade B-cell Lymphoma, here with pancytopenia secondary to chemotherapy and neutropenic fever with sepsis with E. coli UTI, indwelling ureteral stent and staghorn calculus. Improving, counts improving today but remains severely fatigued and weak. -continue Rocephin as per ID--> may need prophylactic abx after treatment course given indwelling stent and recurrent UTIs--> pt says she has tolerated po Cipro she thinks, but IV Cipro listed as an allergy as her arm burned and turned red when she had it at [facility] -restart acyclovir, fluconazole, and Bactrim / on discharge -continue po Vanco for 7 days beyond end date of Rocephin -follow CBC , lytes -follow BCxs -IVC filter in place Dispo-plan to go home with home health as per pt and son's request--> but granddaughter that lives with her today states that pt absolutely cannot return home-states that her Uncle (son from yesterday) is returning to [place] soon and pt's other son works all day so she would be the only one for 24 hour care. She prefers SNF Documented By: Monica Lindsay (Monica Lindsay MD)
--- NOTE | 2017-06-02 14:27 | Progress Note ---
Subjective Date of Service: Jun 02, 2017. Subjective counts improved, ANC >1000, wbc 9.4 today, g csf on hold. pt changed to ctx, tolerating well. afebrile. blood cultures negative. no overnight events, tentative d/c snf. Problem List Medical Problems: (1) Hypokalemia Status: Acute (2) Neutropenia Status: Acute (3) Pancytopenia Status: Acute (4) Sepsis Status: Acute (5) UTI (urinary tract infection) Status: Acute Objective Vital Signs Date Time Temp Pulse Resp B/P (MAP) Pulse Ox O2 Delivery O2 Flow Rate FiO2 06/02/17 08:00 Room Air 06/02/17 07:48 36.8 83 18 131/72 (91) 93 Room Air 06/02/17 04:30 36.9 91 16 139/80 (99) 94 06/02/17 00:00 36.9 88 20 131/67 (88) 91 Room Air 06/02/17 00:00 Room Air 06/01/17 20:00 Room Air 06/01/17 19:46 36.8 88 18 156/82 (106) 94 Room Air 06/01/17 15:45 Room Air 06/01/17 15:45 36.4 90 17 109/74 (86) 92 Room Air Laboratory Results Item Value Date Time Urine Culture - Final Complete 05/30/17 1450 Urine,Catheterized Escherichia Coli Blood Culture - Preliminary Resulted 05/30/17 1525 Blood NO GROWTH TO DATE. Blood Culture - Preliminary Resulted 05/30/17 1359 Blood NO GROWTH TO DATE. Last 24 Hours Test 06/01/17 16:44 06/01/17 20:19 06/02/17 05:25 06/02/17 07:38 Bedside Glucose 156 mg/dl 146 mg/dl 130 mg/dl White Blood Count 9.44 K/uL Red Blood Count 2.62 M/uL Hemoglobin 7.6 g/dL Hematocrit 22.5 % Mean Corpuscular Volume 85.9 fL Mean Corpuscular Hemoglobin 29.0 pg Mean Corpuscular Hemoglobin Concent 33.8 g/dl Platelet Count 81 K/uL Mean Platelet Volume 9.6 fL RDW Standard Deviation 46.9 fL RDW Coefficient of Variation 15.1 % Nucleated RBC Absolute Count (auto) 0.23 K/uL Neutrophils % (Manual) 85.9 % Lymphocytes % (Manual) 8.8 % Monocytes % (Manual) 3.5 % Myelocytes % 1.8 % Nucleated Red Blood Cells % 2.5 % Neutrophils # (Manual) 8.11 K/uL Total Absolute Neutrophils 8.11 K/uL Lymphocytes # (Manual) 0.83 K/uL Total Absolute Lymphocytes 0.83 K/uL Monocytes # (Manual) 0.33 K/uL Myelocytes # 0.17 K/uL Toxic Granulation 2+ Toxic Vacuolation 1+ Dohle Bodies 1+ Sodium Level 144 mmol/L Potassium Level 3.5 mmol/L Chloride Level 110 mmol/L Carbon Dioxide Level 26 mmol/L Anion Gap 8.0 mmol/L Blood Urea Nitrogen 7 mg/dl Creatinine 1.00 mg/dl Est Creatinine Clear Calc Drug Dose 55.3 ml/min Estimated GFR () 63.8 Estimated GFR (Non- 55.1 BUN/Creatinine Ratio 6.5 Random Glucose 110 mg/dl Calcium Level 7.7 mg/dl Magnesium Level 1.8 mg/dl Test 06/02/17 11:26 Bedside Glucose 189 mg/dl Assessment and Plan (1) Neutropenic fever Assessment & Plan: resolved (2) E-coli UTI Assessment & Plan: continue abx for total 7 days, can continue po vanco additonal 7 days with h/o c diff.
[2017-06-03] MEDS: ONDANSETRON INJ 8 MG in DEXTROSE 5% 50ML 50 ML IV SCH ×2 (00:39→09:03)
[2017-06-03] MEDS: NSS + 20MEQ KCL 1000ML 1,000 ML IV SCH (00:39)
[2017-06-03 04:38] VITALS: BP 174/82; PULSE 89; TEMP 36.7; O2SAT 93
[2017-06-03 05:58] VITALS: BMI 45.9
[2017-06-03 07:17] VITALS: BP 161/82; PULSE 78; TEMP 36.4; O2SAT 94
--- NOTE | 2017-06-03 08:03 | Hospitalist Progress Note ---
Hospitalist Progress Note Date of Service Jun 03, 2017. (Tamie Franklin PA-C) Subjective Pt evaluation today including: conversation w/ patient, conversation w/ family , physical exam, chart review, lab review, review of studies Pain: None PO Intake: Fair Voiding: rangel catheter in place The patient was seen and examined this morning. Pt's malia Trinh is at bedside (orthopedic PA at [facility]) who was updated with lab values, antibiotic regimen, and plan. The patient denies any pain specifically. Her nausea seems overall better, had some juice and water early this morning, but only a few bites of food. She is very fatigued today and drifts off to sleep twice while I was talking with the granddaughter, she reports sleeping through most of the night. She denies any chest pain, sob, abd pain, lightheadedness or dizziness. Pt is in agreement to work with OT today. ROS: 6 point ROS reviewed and negative other than listed in HPI. (Tamie Franklin, LANAC) Objective Vital Signs Date Time Temp Pulse Resp B/P (MAP) Pulse Ox O2 Delivery O2 Flow Rate FiO2 06/03/17 07:17 36.4 78 18 161/82 (108) 94 Room Air 06/03/17 04:38 36.7 89 20 174/82 (112) 93 Nasal Cannula 06/03/17 00:00 Room Air 06/02/17 23:52 36.9 84 18 137/73 (94) 92 Room Air 06/02/17 19:54 36.4 86 20 157/79 (105) 95 Room Air 06/02/17 18:40 37.0 89 18 156/76 95 06/02/17 17:40 37.0 89 18 173/80 93 06/02/17 17:10 36.7 89 18 171/79 95 06/02/17 16:40 37.0 85 18 170/76 94 06/02/17 16:25 36.7 82 18 159/76 95 06/02/17 16:10 36.5 84 18 146/78 95 06/02/17 16:00 Room Air 06/02/17 14:53 36.4 81 20 159/78 (105) 97 Room Air 06/02/17 08:00 Room Air (Tamie Franklin PA-C) Physical Exam Notes: Physical Exam General Appearance: WD/WN, no apparent distress, + obese, + pertinent finding ( fatigued) Eyes: PERRL, EOMI ENT: hearing grossly normal, pharynx normal Neck: supple, no JVD Respiratory/Chest: chest non-tender, no respiratory distress, no accessory muscle use, + pertinent finding (On 2 L via NC, breath sounds are diminished throughout, no adventitious breath sounds. ) Cardiovascular: + tachycardia (slightly), + pertinent finding Abdomen: normal bowel sounds, non tender, soft, no organomegaly Extremities: + pedal edema (2+ pitting in RLE, chronic venous stasis changes in the LLE with 1+ pitting edema. Calfs are nontender. ) Neurologic/Psychiatric: oriented x 3, + pertinent finding (fatigued but alert when spoken to, follows commands. 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 diff, HTN ,gout, hypokalemia and hypophoshatemia who presents after having lab work drawn at the [facility] showing diminished white count. She has an extensive medical history in the past month being at [facility] for the majority of April, and just recently being discharged to the [facility]. Initially the patient was seen here at [facility] and found to have a large left sided staghorn calculi, so was transferred to [place] for surgical consultation. 04/21/17 a ureteral stent was placed, which is still there. While there the patient developed acute respiratory distress which was considered to be secondary to chemotherapy, but was then found to have a new onset PE, with a hx of chronic DVT in LLE, so IVC filter was placed. She is no longer on coumadin. She had her first chemotherapy for newly diagnosed Large B cell lymphoma from 04/28-05/02 with dose adjusted E-POCH along with intrathecal methotrexate injection. A brown tunnelled catheter was placed during her stay. Her second cycle of chemotherapy was with R-CHOP on 05/19. She was discharged to the [facility] on 05/20. She presented with febrile neutropenia secondary to chemotherapy with Tmax of 38.3 at time of admission, which was due to sepsis with E.coli UTI. Neutropenic fever with ANC=10 secondary to chemotherapy, at time of admission Sepsis secondary to E.coli UTI - ID consulted, plan to transition to rocephin IV for now to de-escalate abx therapy- continue to total a 7 day course (day 4 of abx) - regarding prophylactic antibiotics plan on the following: bactrim DS 1 tab MTh, acyclovir 200 mg TID, and fluconazole 100 mg QD after course of rocephin is complete for UTI which will finish on Wednesday 06/06. - D/c neupogen 480 mg sQ inj as her ANC is > 1000. - Pt reports improvement in nausea- zofran 8 mg Q8H and compazine 10 mg prn - Continue protonix inj - s/p 1U PRBCs and 2 U of platelets transfused 05/31. 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 Pt had a Brown tunneled catheter placed prior to the 2nd cycle of chemotherapy with R-CHOP completed on 05/19. - Pt had been on a prophylactic regimen with cipro, bactrim, acylovir and fluconazole as an outpatient regimen, will hold on this in the setting of neutropenic fever. - ID recs above - Heme consult- appreciate recs Chronic DVT of the LLE and PE found [place] [facility] [place] Pt had IVC filter placed ~4weeks ago- no longer on anticoagulation. Recent urinary tract infection and stent placement for staghorn calculi - April 21 pt was admitted to [facility] and found to have staghorn calc, was transferred to [facility] [place] and had a L ureteral stent placed same day. It is currently still in place. Family reports urology wont remove the stent due to pancytopenia and risk of infection. - Urine cx with E.coli - Infectious disease consulted - appreciate recs - Cont IVFs for now Electrolyte abnormalities/hypokalemia/hypomagnesemia - Repleted via IV potassium - K+ is 3.5 today - Repleted via 1 g IV magnesium Diabetes mellitus type II - hold Januvia - Continue ISS with Accu-Cheks ACHS with novolog - glucose seems to be running in 130s-170s range C. difficile history - ID recs continuing oral vanc for 7 days past the finish date of rocephin. - continue vancomycin 125 mg po QID for prophylactic measures since getting multiple IV abx. Pt is having difficulty with oral intake due to nausea, hopefully around the clock antiemetic improve this. - Consider probiotic if can tolerate PO. Hypertension - hold furosemide 20 mg daily and valsartan 160 mg daily. Gout - continue allopurinol 200 mg by mouth daily. Appetite stimulant - continue Marinol 2.5 mg by mouth twice a day - Continue fluids with potassium - Nutrition consultation may be warranted if her appetite doesn't improve. Pt reports not eating for days now d/t nausea. Chronic back pain - will order a lidocaine patch as the pt uses this as an outpatient. DVT ppx: teds, scds,IVC filter in place, chemical anticoagulation has been held due to thrombocytopenia but not counts are improving CODE STATUS: FULL CODE CM to help with discharge planning, OT to see. - Discussed with Harpreet Awad regarding making referrals to SNF and [facility], he plans to place referrals today pending OT eval and after speaking with family to choose facility for discharge. 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 Discussed with ABELARDO Franklin and agree with findings and plan as documented in the note. Any exceptions or clarifications are listed here: Was feeling very weak and all limbs felt heavy earlier today. Now feeling better but having some involuntary movements at times of her arms mostly at rest. Granddaughter reports she is not to be on standing dose of baclofen like is ordered, she rarely took that, has no muscle spasms normally. She ate 4 bites of soup for lunch but not feeling nauseated now. Actually is the most alert and talkative I have seen in days. No pain anywhere except lower back and rt hip. VSS Obese, NAD, appears pale AAO RRR no mgr CTAB no wcr Abd soft NT ND Ext 1+ pitting edema bilat with venous stasis changes Neuro 5/5 strength throughout upper and lower extremities 77 yo female with high-grade B-cell Lymphoma, here with pancytopenia secondary to chemotherapy and neutropenic fever with sepsis with E. coli UTI, indwelling ureteral stent and staghorn calculus. Improving, counts improving today but remains severely fatigued and weak. Improved today but could be chemo side effect, anemia, low Mag -continue Rocephin as per ID--> will need prophylactic abx after treatment course given indwelling stent and recurrent UTIs--> will do Bactrim Tue/ -restart acyclovir, fluconazole, and Bactrim / on discharge all for prophylaxis while on chemo -continue po Vanco for 7 days beyond end date of Rocephin-however, she states she can only take the tablet form at [facility], cannot tolerate the liquid form here and is hesitant to try po Flagyl due to possible SE of nausea. No current diarrhea, last C. diff ag + on 04/24/17 and has been on Vanco ever since then -follow CBC , lytes -follow BCxs -IVC filter in place -replace Magnesium today for muscle twitching and stop baclofen standing dose, change Zofran to prn Dispo-to SNF when improved Documented By: Monica Lindsay (Monica Lindsay MD)
[2017-06-03 08:53] LABS: BUN/CREATININE RATIO 4.5 (10-20); CALCIUM 7.7 mg/dl (8.5-10.1); CREATININE 1.1 mg/dl (0.60-1.20); MAGNESIUM 1.7 mg/dl (1.8-2.4); POTASSIUM 3.9 mmol/L (3.5-5.1)
[2017-06-03 09:02] LABS: HEMATOCRIT 27.5 % (37-47); MEAN CELL VOLUME 85.9 fL (80-100); MEAN CORPUSCULAR HEMOGLOBIN 28.4 pg (25-34); MEAN CORPUSCULAR HGB CONC 33.1 g/dl (32-36); MEAN PLATELET VOLUME 9.2 fL (7.4-10.4); PLATELET COUNT 104 K/uL (130-400); WHITE BLOOD COUNT 25.77 K/uL (4.8-10.8)
[2017-06-03 09:03] LABS: BASO ABS # 0.23 K/uL (0-0.2); BASOPHIL % 0.9 %; COMPLETE YES; DOHLE BODIES 1+; LYMPH ABS # 0.67 K/uL (1.2-3.4); LYMPHOCYTE % 2.6 %; META ABS # 0.44 K/uL (0-0); METAMYELOCYTE % 1.7 %; MYELOCYTE % 0.9 %; NEUTROPHILS % 92.2 %; PLT ESTIMATE DECREASED; POLYCHROMASIA 1+; TOXIC GRANULATION 2+
[2017-06-03] MEDS: RASPBERRY SYRUP 5 ML UDP PO SCH ×2 (09:06→11:59)
[2017-06-03] MEDS: VANCOMYCIN HCL 125 MG/2.5ML SOLN PO SCH ×2 (09:06→12:00)
[2017-06-03] MEDS: DRONABINOL 2.5 MG CAP PO SCH ×2 (09:07→21:57)
[2017-06-03] MEDS: VALSARTAN 80 MG TAB PO SCH (09:07)
[2017-06-03] MEDS: ALLOPURINOL 100 MG TAB PO SCH (09:08)
[2017-06-03] MEDS: PANTOprazole SOD 40 MG TAB PO SCH (09:08)
[2017-06-03] MEDS: LIDODERM (LIDOCAINE) PATCH 5% TD SCH (09:08)
[2017-06-03] MEDS: OXYBUTYNIN CHLORIDE 5 MG TAB PO SCH (09:13)
[2017-06-03] MEDS: BACLOFEN TAB 20 MG TAB PO SCH (09:13)
[2017-06-03] MEDS: INSULIN ASPART 100 UNITS/ML 3 ML PEN SC SCH ×4 (09:18→22:03)
[2017-06-03 11:14] VITALS: BP 169/78; PULSE 97; O2SAT 92
[2017-06-03] MEDS: CEFTRIAXONE SOD INJ 2,000 MG in DEXTROSE 5% 50ML 50 ML IV SCH (12:01)
[2017-06-03] MEDS ORDERED: MAGNESIUM SULFATE 1GM / D5W 1 GM in PREMIXED IN D5W 100 ML IV SCH (15:00)
[2017-06-03 15:31] VITALS: BP 168/84; PULSE 102; TEMP 36.5; O2SAT 92
[2017-06-03 19:27] VITALS: BP 160/85; PULSE 94; TEMP 36.8; O2SAT 94
[2017-06-03] MEDS ORDERED: BACLOFEN TAB 20 MG TAB PO PRN (20:00)
[2017-06-03] MEDS: HYDROCODONE/ACETAMOPHEN 5/325MG TAB PO PRN (22:04)
[2017-06-04 00:13] VITALS: BP 150/81; PULSE 95; TEMP 36.7; O2SAT 92
[2017-06-04] MEDS: ONDANSETRON INJ 2 MG/ML 2 ML VIAL IV PRN ×2 (03:32→23:12)
[2017-06-04] MEDS: HYDROCODONE/ACETAMOPHEN 5/325MG TAB PO PRN (03:33)
[2017-06-04 04:02] VITALS: BP 156/79; PULSE 86; TEMP 36.7; O2SAT 90
[2017-06-04 06:08] LABS: MEAN CORPUSCULAR HGB CONC 33.5 g/dl (32-36); MEAN PLATELET VOLUME 8.9 fL (7.4-10.4); PLATELET COUNT 100 K/uL (130-400)
[2017-06-04 06:28] VITALS: BMI 47.2
[2017-06-04 06:42] LABS: BUN/CREATININE RATIO 3.6 (10-20); CALCIUM 7.9 mg/dl (8.5-10.1); CREATININE 1.1 mg/dl (0.60-1.20); MAGNESIUM 1.7 mg/dl (1.8-2.4); POTASSIUM 3.7 mmol/L (3.5-5.1)
[2017-06-04 07:15] LABS: LYMPH ABS # 0.74 K/uL (1.2-3.4); LYMPHOCYTE % 2.6 %; MYELOCYTE % 2.6 %
[2017-06-04 07:17] LABS: COMPLETE YES; DOHLE BODIES 2+; ECHINOCYTES 1+; HEMATOCRIT 26.3 % (37-47); MEAN CELL VOLUME 87.4 fL (80-100); MEAN CORPUSCULAR HEMOGLOBIN 29.2 pg (25-34); POLYCHROMASIA 1+; RED BLOOD COUNT 3.01 M/uL (4.2-5.4); TOXIC GRANULATION 1+; VACUOLIZATION OCCASIONAL; WHITE BLOOD COUNT 28.61 K/uL (4.8-10.8)
[2017-06-04 07:51] VITALS: BP 197/82; PULSE 91; TEMP 36.3; O2SAT 93
[2017-06-04] MEDS: OXYBUTYNIN CHLORIDE 5 MG TAB PO SCH (08:16)
[2017-06-04] MEDS: PANTOprazole SOD 40 MG TAB PO SCH (08:16)
[2017-06-04] MEDS: VALSARTAN 80 MG TAB PO SCH (08:16)
[2017-06-04] MEDS: LIDODERM (LIDOCAINE) PATCH 5% TD SCH (08:17)
[2017-06-04] MEDS: ALLOPURINOL 100 MG TAB PO SCH (08:17)
[2017-06-04] MEDS: INSULIN ASPART 100 UNITS/ML 3 ML PEN SC SCH ×4 (08:23→20:10)
[2017-06-04] MEDS: DRONABINOL 2.5 MG CAP PO SCH ×2 (08:26→20:10)
[2017-06-04] MEDS ORDERED: MAGNESIUM SULFATE 1GM / D5W 1 GM in PREMIXED IN D5W 100 ML IV SCH (10:15)
[2017-06-04 10:57] LABS: BUN/CREATININE RATIO 3.5 (10-20); CALCIUM 7.9 mg/dl (8.5-10.1); CREATININE 1.3 mg/dl (0.60-1.20); MAGNESIUM 1.7 mg/dl (1.8-2.4); POTASSIUM 3.8 mmol/L (3.5-5.1)
[2017-06-04 11:35] VITALS: BP 142/65; PULSE 81; TEMP 36.5; O2SAT 94
[2017-06-04] MEDS: CEFTRIAXONE SOD INJ 2,000 MG in DEXTROSE 5% 50ML 50 ML IV SCH (12:12)
[2017-06-04 16:12] VITALS: BP 169/79; PULSE 73; TEMP 36.4; O2SAT 95
[2017-06-04 19:40] VITALS: BP 172/78; PULSE 80; TEMP 36.7; O2SAT 93
--- NOTE | 2017-06-04 22:51 | Progress Note ---
Subjective Date of Service: Jun 04, 2017. Subjective Pt evaluation today including: conversation w/ patient, conversation w/ family , physical exam, chart review, lab review, review of studies Voiding: no voiding problems Patient was seen and examined by me this morning. Pt's granddaughter Gayathri is at bedside (orthopedic PA at [facility]) who was updated with lab values, antibiotic regimen, and plan. The patient denies any pain specifically. Her nausea seems better. She is not fatigued today, she reports sleeping through most of the night. She denies any chest pain, sob, abd pain, lightheadedness or dizziness. Problem List Medical Problems: (1) Hypokalemia Status: Acute (2) Neutropenia Status: Acute (3) Pancytopenia Status: Acute (4) Sepsis Status: Acute (5) UTI (urinary tract infection) Status: Acute Review of Systems All Other Systems: Reviewed and Negative Medications Medications (Trade) Dose Ordered Sig/[place] Route Start Time Stop Time Status Last Admin Dose Admin Magnesium Sulfate 1 gm/Prmx 100 ml @ 100 mls/hr 1015 IV 06/04/17 10:15 06/04/17 11:14 DC 06/04/17 10:44 100 MLS/HR Objective Vital Signs Date Time Temp Pulse Resp B/P (MAP) Pulse Ox O2 Delivery O2 Flow Rate FiO2 06/04/17 19:40 36.7 80 20 172/78 (109) 93 Room Air 06/04/17 16:12 36.4 73 20 169/79 (109) 95 Room Air 06/04/17 16:00 Room Air 06/04/17 11:35 36.5 81 18 142/65 (90) 94 Room Air 06/04/17 08:00 Nasal Cannula 2.0 06/04/17 07:51 36.3 91 20 197/82 (120) 93 Room Air 06/04/17 04:02 36.7 86 20 156/79 (104) 90 Room Air 06/04/17 00:30 Room Air 06/04/17 00:13 36.7 95 18 150/81 (104) 92 Room Air Physical Exam Comments: Physical Exam General Appearance: WD/WN, no apparent distress, + obese, + pertinent finding ( fatigued) Eyes: PERRL, EOMI ENT: hearing grossly normal, pharynx normal Neck: supple, no JVD Respiratory/Chest: chest non-tender, no respiratory distress, no accessory muscle use, + pertinent finding (On 2 L via NC, breath sounds are diminished throughout, no adventitious breath sounds. ) Cardiovascular: + tachycardia (slightly), + pertinent finding Abdomen: normal bowel sounds, non tender, soft, no organomegaly Extremities: + pedal edema (2+ pitting in RLE, chronic venous stasis changes in the LLE with 1+ pitting edema. Calfs are nontender. ) Neurologic/Psychiatric: oriented x 3, + pertinent finding (fatigued but alert when spoken to, follows commands. ) Skin: warm/dry Laboratory Results Last 24 Hours Test 06/04/17 05:17 06/04/17 08:09 06/04/17 10:08 06/04/17 11:49 White Blood Count 28.61 K/uL Red Blood Count 3.01 M/uL Hemoglobin 8.8 g/dL Hematocrit 26.3 % Mean Corpuscular Volume 87.4 fL Mean Corpuscular Hemoglobin 29.2 pg Mean Corpuscular Hemoglobin Concent 33.5 g/dl Platelet Count 100 K/uL Mean Platelet Volume 8.9 fL RDW Standard Deviation 50.6 fL RDW Coefficient of Variation 16.0 % Nucleated RBC Absolute Count (auto) 0.72 K/uL Neutrophils % (Manual) 93.0 % Lymphocytes % (Manual) 2.6 % Monocytes % (Manual) 0.9 % Myelocytes % 2.6 % Blast Cells % 0.9 % Nucleated Red Blood Cells % 2.5 % Neutrophils # (Manual) 26.61 K/uL Total Absolute Neutrophils 26.61 K/uL Lymphocytes # (Manual) 0.74 K/uL Total Absolute Lymphocytes 0.74 K/uL Monocytes # (Manual) 0.26 K/uL Myelocytes # 0.74 K/uL Blast Cells # 0.26 K/uL Toxic Granulation 1+ Toxic Vacuolation OCCASIONAL Dohle Bodies 2+ Polychromasia 1+ Echinocytes 1+ Sodium Level 146 mmol/L 144 mmol/L Potassium Level 3.7 mmol/L 3.8 mmol/L Chloride Level 113 mmol/L 111 mmol/L Carbon Dioxide Level 27 mmol/L 26 mmol/L Anion Gap 6.0 mmol/L 7.0 mmol/L Blood Urea Nitrogen 4 mg/dl 5 mg/dl Creatinine 1.10 mg/dl 1.30 mg/dl Est Creatinine Clear Calc Drug Dose 51.6 ml/min 43.7 ml/min Estimated GFR () 56.9 46.5 Estimated GFR (Non- 49.1 40.1 BUN/Creatinine Ratio 3.6 3.5 Random Glucose 115 mg/dl 160 mg/dl Calcium Level 7.9 mg/dl 7.9 mg/dl Magnesium Level 1.7 mg/dl 1.7 mg/dl Bedside Glucose 121 mg/dl 167 mg/dl Total Bilirubin 0.4 mg/dl Aspartate Amino Transf (AST/SGOT) 19 U/L Alanine Aminotransferase (ALT/SGPT) 19 U/L Alkaline Phosphatase 263 U/L Total Protein 4.8 gm/dl Albumin 2.4 gm/dl Globulin 2.4 gm/dl Albumin/Globulin Ratio 1.0 Test 06/04/17 16:25 06/04/17 20:08 Bedside Glucose 130 mg/dl 141 mg/dl Assessment and Plan This is a 77 yo F with PMHx of B cell lymphoma, 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 diff, HTN ,gout, hypokalemia and hypophosphatemia who presents after having lab work drawn at the [facility] showing diminished white count. She has an extensive medical history in the past month being at [place] for the majority of April, and just recently being discharged to the [facility]. Initially the patient was seen here at [facility] and found to have a large left sided staghorn calculi, so was transferred to [place] for surgical consultation. 04/21/17 a ureteral stent was placed, which is still there. While there the patient developed acute respiratory distress which was considered to be secondary to chemotherapy, but was then found to have a new onset PE, with a hx of chronic DVT in E, so IVC filter was placed. She is no longer on coumadin. She had her first chemotherapy for newly diagnosed Large B cell lymphoma from 04/28-05/02 with dose adjusted E-POCH along with intrathecal methotrexate injection. A [place] tunnelled catheter was placed during her stay. Her second cycle of chemotherapy was with R-CHOP on 05/19. She was discharged to the [facility] on 05/20. She presented with febrile neutropenia secondary to chemotherapy with Tmax of 38.3 at time of admission, which was due to sepsis with E.coli UTI. Neutropenic fever with ANC=10 secondary to chemotherapy, at time of admission Sepsis secondary to E.coli UTI - ID consulted, plan to transition to rocephin IV for now to de-escalate abx therapy- continue to total a 7 day course (day 5 of abx) - regarding prophylactic antibiotics plan on the following: bactrim DS 1 tab MTh, acyclovir 200 mg TID, and fluconazole 100 mg QD after course of rocephin is complete for UTI which will finish on Wednesday 06/06. - D/c neupogen 480 mg sQ inj as her ANC is > 1000. - Pt reports improvement in nausea- zofran 8 mg Q8H and compazine 10 mg prn - Continue protonix inj - s/p 1U PRBCs and 2 U of platelets transfused 05/31. 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 Pt had a [place] tunneled catheter placed prior to the 2nd cycle of chemotherapy with R-CHOP completed on 05/19. - Pt had been on a prophylactic regimen with cipro, bactrim, acylovir and fluconazole as an outpatient regimen, will hold on this in the setting of neutropenic fever. - ID recs above - Heme consult- appreciate recs Chronic DVT of the LLE and PE found after hypoxic episode at [facility] - Pt had IVC filter placed ~4weeks ago- no longer on anticoagulation. Recent urinary tract infection and stent placement for staghorn calculi - April 21 pt was admitted to [facility] and found to have staghorn calc, was transferred to [facility] for intervention and had a L ureteral stent placed same day. It is currently still in place. Family reports urology wont remove the stent due to pancytopenia and risk of infection. - Urine cx with E.coli - Infectious disease consulted - appreciate recs - Cont IVFs for now Electrolyte abnormalities/hypokalemia/hypomagnesemia - Repleted via IV potassium - K+ is 3.8 today - Repleted via 1 g IV magnesium Diabetes mellitus type II - hold Januvia - Continue ISS with Accu-Cheks ACHS with novolog - glucose seems to be running in 130s-170s range C. difficile history - ID recs continuing oral vanc for 7 days past the finish date of rocephin. - continue vancomycin 125 mg po QID for prophylactic measures since getting multiple IV abx. Pt is having difficulty with oral intake due to nausea, hopefully around the clock antiemetic improve this. - Consider probiotic if can tolerate PO. Hypertension - hold furosemide 20 mg daily and valsartan 160 mg daily. Gout - continue allopurinol 200 mg by mouth daily. Appetite stimulant - continue Marinol 2.5 mg by mouth twice a day - Continue fluids with potassium - Nutrition consultation may be warranted if her appetite doesn't improve. Pt reports not eating for days now d/t nausea. Chronic back pain - will order a lidocaine patch as the pt uses this as an outpatient. DVT ppx: teds, scds,IVC filter in place, chemical anticoagulation has been held due to thrombocytopenia but not counts are improving CODE STATUS: FULL CODE Disposition: should finish course of rocephin at [facility] on Tuesday. Continued [facility] stay due to: multiple IV medications needed, other Discharge planning: senior care facility
[2017-06-05] VITALS (8 sets, daily range): BP systolic 138–187; BP diastolic 73–96; PULSE 80–107; TEMP 36.5–36.8; O2SAT 90–96; BMI 46.2
[2017-06-05 00:38] LABS: BUN/CREATININE RATIO 3.8 (10-20); CREATININE 1.2 mg/dl (0.60-1.20); MAGNESIUM 1.7 mg/dl (1.8-2.4); POTASSIUM 3.7 mmol/L (3.5-5.1)
[2017-06-05 00:41] LABS: ALB/GLOB RATIO 0.9 (0.9-2)
[2017-06-05] MEDS: HYDROCODONE/ACETAMOPHEN 5/325MG TAB PO PRN (04:05)
[2017-06-05 05:33] LABS: HEMATOCRIT 26.8 % (37-47); MEAN CELL VOLUME 87.6 fL (80-100); MEAN CORPUSCULAR HEMOGLOBIN 28.4 pg (25-34); MEAN CORPUSCULAR HGB CONC 32.5 g/dl (32-36); RED BLOOD COUNT 3.06 M/uL (4.2-5.4); WHITE BLOOD COUNT 25.45 K/uL (4.8-10.8)
[2017-06-05 05:59] LABS: MEAN PLATELET VOLUME 8.7 fL (7.4-10.4); PLATELET COUNT 80 K/uL (130-400)
[2017-06-05 06:28] LABS: BASO ABS # 0.23 K/uL (0-0.2); BASOPHIL % 0.9 %; COMPLETE YES; DOHLE BODIES 1+; LYMPH ABS # 0.66 K/uL (1.2-3.4); LYMPHOCYTE % 2.6 %; META ABS # 0.46 K/uL (0-0); METAMYELOCYTE % 1.8 %; MYELOCYTE % 2.6 %; NEUTROPHILS % 85.1 %; TOXIC GRANULATION 1+
[2017-06-05] MEDS: ONDANSETRON INJ 2 MG/ML 2 ML VIAL IV PRN (08:12)
[2017-06-05] MEDS: OXYBUTYNIN CHLORIDE 5 MG TAB PO SCH (08:48)
[2017-06-05] MEDS: VALSARTAN 80 MG TAB PO SCH (08:49)
[2017-06-05] MEDS: DRONABINOL 2.5 MG CAP PO SCH ×2 (08:49→20:16)
[2017-06-05] MEDS: PANTOprazole SOD 40 MG TAB PO SCH (08:49)
[2017-06-05] MEDS: ALLOPURINOL 100 MG TAB PO SCH (08:50)
[2017-06-05] MEDS: LIDODERM (LIDOCAINE) PATCH 5% TD SCH (08:50)
[2017-06-05] MEDS: INSULIN ASPART 100 UNITS/ML 3 ML PEN SC SCH ×4 (08:58→20:16)
[2017-06-05] MEDS: MECLIZINE HCL 25 MG TAB PO PRN (10:15)
[2017-06-05] MEDS: CEFTRIAXONE SOD INJ 2,000 MG in DEXTROSE 5% 50ML 50 ML IV SCH (11:48)
--- NOTE | 2017-06-05 17:13 | Hospitalist Progress Note ---
Hospitalist Progress Note Date of Service Jun 05, 2017. Subjective Pt evaluation today including: conversation w/ patient, physical exam, chart review, lab review, review of studies, review of inpatient medication list Mrs. Perez is a very pleasant 77-year-old female with a history of B-cell lymphoma, hypertension, gout, hypokalemia, hypophosphatemia, Left ureteral stent for large staghorn calculus, acute DVT/PE (acute resp distress on 2016 when diagnosed) s/p IVC filter who had her 2nd chemotherapy treatment on (R-CHOP) and was admitted to our facility with Febrile Neutropenia secondary to E coli urosepsis. Patient received her 4th dose of IV Rocephin of a seven day course, and has received Neupogen. Her white blood cell count has decreased. Keep patient is currently being seen in room 416 and she is sitting up in a bedside chair eating lunch. Patient states that she is gradually improving, although she continues to complain of generalized weakness. Her nausea has improved. She still feels "loopy" at times -- and this is likely the result of her acute illness as well as "chemo brain". Patient has not had any fevers, chills, shaking chills, or rigors. She denies any chest pain, heaviness, tightness, or pressure. She denies any shortness of breath at present time. She denies any orthopnea or PND. No palpitations, syncope, or near syncope. Medications Current Inpatient Medications Medications (Trade) Dose Ordered Sig/[place] Route Start Time Stop Time Status Last Admin Dose Admin Acetaminophen (Tylenol Tab) 650 mg Q4H PRN PO 05/30/17 16:00 06/29/17 15:59 06/02/17 06:18 650 MG Albuterol (Ventolin Hfa Inhaler) 2 puffs QID PRN INH 05/30/17 16:00 06/29/17 15:59 Allopurinol (Zyloprim Tab) 200 mg DAILY PO 05/31/17 08:00 06/30/17 08:59 06/05/17 08:50 200 MG Bismuth Subsalicylate (Pepto-Bismol Susp) 15 ml QID PRN PO 05/30/17 16:00 06/29/17 15:59 Dicyclomine HCl (Bentyl Tab) 20 mg QID PRN PO 05/30/17 16:00 06/29/17 15:59 Dronabinol (Marinol Cap) 2.5 mg BID PO 05/30/17 20:00 06/29/17 20:59 06/05/17 08:49 2.5 MG Fluticasone Propionate (Flonase Nasal [place]) 2 sprays DAILY PRN VIGNESH 05/30/17 16:00 06/29/17 15:59 Acetaminophen/ Hydrocodone Bitart ([place] 5/325 Tab) 1 tab Q6 PRN PO 05/30/17 16:00 06/13/17 15:59 06/05/17 04:05 1 TAB Meclizine HCl (Antivert Tab) 25 mg TID PRN PO 05/30/17 16:00 06/29/17 15:59 06/05/17 10:15 25 MG Oxybutynin Chloride (Ditropan Tab) 10 mg DAILY PO 05/31/17 08:00 06/30/17 08:59 06/05/17 08:48 10 MG Senna/Docusate Sodium (Senokot S Tab) 2 tab BID PRN PO 05/30/17 16:00 06/29/17 15:59 Ondansetron HCl (Zofran Inj) 4 mg Q6H PRN IV 05/30/17 16:00 06/29/17 15:59 06/05/17 08:12 4 MG Insulin Aspart (novoLOG ASPART) SLIDING SCALE If C... ACHS SC 05/30/17 17:21 06/29/17 17:20 06/05/17 12:50 4 UNITS Glucose (Glucose 40% Gel) UD PRN PO 05/30/17 16:00 06/29/17 15:59 Glucose (Glucose Chew Tab) 1 tabs UD PRN PO 05/30/17 16:00 06/29/17 15:59 Dextrose (Dextrose 50% 50ML Syringe) 50 ml UD PRN IV 05/30/17 16:00 06/29/17 15:59 Glucagon (Glucagon Inj) 1 mg UD PRN SQ 05/30/17 16:00 06/29/17 15:59 Lidocaine (Lidoderm Patch 5%) 1 patch QAM TD 05/31/17 11:45 8/3/17 11:44 06/05/17 08:50 1 PATCH Miscellaneous (Remove Lidoderm Patch) 1 ea DAILY@21 N/A 05/31/17 21:00 06/30/17 20:59 06/04/17 20:10 1 EA Heparin Sodium (Porcine) (Heparin 10 Unit/ ml 5 ml Flush) 5 ml PRN PRN FLUSH 05/31/17 23:45 06/30/17 23:44 06/05/17 12:44 5 ML Ceftriaxone Sodium 2000 mg/ Dextrose 70 ml @ 100 mls/hr Q24H IV 06/01/17 12:00 06/11/17 11:29 06/05/17 11:48 100 MLS/HR Prochlorperazine Edisylate 10 mg/ Syringe 10 ml @ 5 mls/min Q6H PRN IV 06/02/17 02:00 06/30/17 13:59 Pantoprazole Sodium (Protonix Tab) 40 mg QAM PO 06/02/17 08:00 07/02/17 07:59 06/05/17 08:49 40 MG Valsartan (Diovan Tab) 160 mg QAM PO 06/03/17 08:00 07/03/17 07:59 06/05/17 08:49 160 MG Baclofen (Lioresal Tab) 20 mg BID PRN PO 06/03/17 20:00 06/29/17 20:59 Objective Vital Signs Date Time Temp Pulse Resp B/P (MAP) Pulse Ox O2 Delivery O2 Flow Rate FiO2 06/05/17 16:30 36.6 81 18 139/80 (99) 95 Room Air 06/05/17 16:29 36.5 91 20 142/86 (104) 91 Room Air 2.0 06/05/17 12:32 36.5 91 20 142/86 (104) 91 Room Air 2.0 06/05/17 10:14 36.7 107 20 166/89 (114) 94 Room Air 06/05/17 10:08 Room Air 06/05/17 04:08 36.7 80 20 179/78 (111) 90 Room Air 06/05/17 00:14 36.8 85 20 187/83 (117) 94 Room Air 06/05/17 00:01 Room Air 06/04/17 19:40 36.7 80 20 172/78 (109) 93 Room Air Physical Exam Notes: General: Patient in no acute distress. HEENT: Head is atraumatic, normocephalic. EOMs intact. Sclerae anicteric. Facies symmetric. No perioral cyanosis. Neck: No thyromegaly, adenopathy, or JVD. Carotid upstrokes +2 bilaterally. JVP is not elevated. Chest and Lungs: Mildly diminished breath sounds throughout, no wheezes, rales , or rhonchi. [place] catheter present on right upper chest. CVS: S1 and S2 are regular at 85 beats per minute. No murmur, gallop, or rub. PMI is nondisplaced. No lifts, heaves, or thrills. No abdominal aortic or renal bruits. Abdominal Exam: Bowel sounds present. No masses, organomegaly, or tenderness. Extremities: Bipedal edema present, +2 pitting edema of the right lower extremity, +1 pitting edema of the left lower extremity. Pigmentation changes consistent with chronic venous insufficiency noted as well. Neurologic Exam: Patient is awake, alert, and oriented. Pleasant and cooperative. Answers questions appropriately. Speech is clear. Normal movement in all 4 extremities. Gait pattern is unremarkable. Laboratory Results Last 24 Hours Test 06/04/17 20:08 06/04/17 23:57 06/05/17 05:08 06/05/17 07:56 Bedside Glucose 141 mg/dl 128 mg/dl Sodium Level 144 mmol/L Potassium Level 3.7 mmol/L Chloride Level 110 mmol/L Carbon Dioxide Level 27 mmol/L Anion Gap 7.0 mmol/L Blood Urea Nitrogen 5 mg/dl Creatinine 1.20 mg/dl Est Creatinine Clear Calc Drug Dose 47.3 ml/min Estimated GFR () 51.2 Estimated GFR (Non- 44.2 BUN/Creatinine Ratio 3.8 Random Glucose 135 mg/dl Calcium Level 8.0 mg/dl Magnesium Level 1.7 mg/dl Total Bilirubin 0.3 mg/dl Aspartate Amino Transf (AST/SGOT) 14 U/L Alanine Aminotransferase (ALT/SGPT) 16 U/L Alkaline Phosphatase 245 U/L Total Protein 4.7 gm/dl Albumin 2.2 gm/dl Globulin 2.5 gm/dl Albumin/Globulin Ratio 0.9 White Blood Count 25.45 K/uL Red Blood Count 3.06 M/uL Hemoglobin 8.7 g/dL Hematocrit 26.8 % Mean Corpuscular Volume 87.6 fL Mean Corpuscular Hemoglobin 28.4 pg Mean Corpuscular Hemoglobin Concent 32.5 g/dl Platelet Count 80 K/uL Mean Platelet Volume 8.7 fL RDW Standard Deviation 51.4 fL RDW Coefficient of Variation 16.3 % Nucleated RBC Absolute Count (auto) 0.51 K/uL Neutrophils % (Manual) 85.1 % Lymphocytes % (Manual) 2.6 % Monocytes % (Manual) 7.0 % Basophils % (Manual) 0.9 % Metamyelocytes % 1.8 % Myelocytes % 2.6 % Nucleated Red Blood Cells % 2.0 % Neutrophils # (Manual) 21.66 K/uL Total Absolute Neutrophils 21.66 K/uL Lymphocytes # (Manual) 0.66 K/uL Total Absolute Lymphocytes 0.66 K/uL Monocytes # (Manual) 1.78 K/uL Basophils # (Manual) 0.23 K/uL Metamyelocytes # 0.46 K/uL Myelocytes # 0.66 K/uL Toxic Granulation 1+ Dohle Bodies 1+ Test 06/05/17 11:46 Bedside Glucose 174 mg/dl Assessment and Plan (1) Neutropenic fever (2) E-coli UTI 1. Neutropenic Fever secondary to chemotherapy. -- Continue IV Rocephin x 7 days total course. -- Prophylactic Bactrim Tuesday and , Acyclovir 200 mg tid, [id number] mg daily (after Rocephin course completed). -- Infectious Disease Consulted and following. 2. B-Cell Lymphoma / NHL: -- Prophylactic measures as outlined above. -- Received E-POCH from 04/28 to 05/02. -- Received 2nd cycle of R-CHOP 05/19/2017. -- Management as per heme-onc. 3. DVT s/p IVC filter: -- Not on anticoagulation due to thrombocytopenia. 4. Electrolyte abnormalities -- Corrected, continue to monitor. Type 2 DM, HTN -- continue current management. Continued [facility] stay due to: multiple IV medications needed, other Discharge planning: jail facility
[2017-06-06] MEDS: HYDROCODONE/ACETAMOPHEN 5/325MG TAB PO PRN (00:22)
[2017-06-06 06:27] VITALS: BMI 45.2
[2017-06-06] MEDS: ONDANSETRON INJ 2 MG/ML 2 ML VIAL IV PRN (06:27)
[2017-06-06 07:42] VITALS: BP 149/82; PULSE 75; TEMP 36.6; O2SAT 96
[2017-06-06] MEDS: LIDODERM (LIDOCAINE) PATCH 5% TD SCH (08:08)
[2017-06-06] MEDS: MECLIZINE HCL 25 MG TAB PO PRN (08:08)
[2017-06-06] MEDS: VALSARTAN 80 MG TAB PO SCH (08:09)
[2017-06-06] MEDS: OXYBUTYNIN CHLORIDE 5 MG TAB PO SCH (08:09)
[2017-06-06] MEDS: PANTOprazole SOD 40 MG TAB PO SCH (08:09)
[2017-06-06] MEDS: ALLOPURINOL 100 MG TAB PO SCH (08:10)
[2017-06-06] MEDS: DRONABINOL 2.5 MG CAP PO SCH ×2 (08:15→20:15)
[2017-06-06] MEDS ORDERED: DFL100 PO (09:19)
[2017-06-06] MEDS ORDERED: ACYC1CAP8 PO (09:19)
[2017-06-06] MEDS ORDERED: SULF800T23 PO (09:19)
[2017-06-06] MEDS: INSULIN ASPART 100 UNITS/ML 3 ML PEN SC SCH ×4 (10:05→20:18)
[2017-06-06] MEDS: CEFTRIAXONE SOD INJ 2,000 MG in DEXTROSE 5% 50ML 50 ML IV SCH (11:19)
[2017-06-06 11:34] VITALS: BP 140/83; PULSE 80; TEMP 36.6; O2SAT 96
[2017-06-06 15:43] VITALS: BP 164/89; PULSE 84; TEMP 36.9; O2SAT 95
--- NOTE | 2017-06-06 16:06 | Progress Note ---
Subjective Date of Service: Jun 06, 2017. Subjective pt is cheerfully optimistic about going to rehab and eventually returning to home, her sons are at bedside and have all questions answered. she has no focal complaints but continues to exhibit le edema Problem List Medical Problems: (1) Hypokalemia Status: Acute (2) Neutropenia Status: Acute (3) Pancytopenia Status: Acute (4) Sepsis Status: Acute (5) UTI (urinary tract infection) Status: Acute Review of Systems Constitutional: + weakness, + fatigue, No fever, No chills Respiratory: + dyspnea on exertion, No cough, No shortness of breath Cardiac: + edema, No chest pain, No orthopnea, No PND Abdomen: No pain, No nausea, No vomiting, No diarrhea Musculoskeletal: + swelling, No joint pain, No muscle pain Female : No dysuria, No urinary frequency Psychiatric: No depression symptoms, No anhedonism Objective Vital Signs Date Time Temp Pulse Resp B/P (MAP) Pulse Ox O2 Delivery O2 Flow Rate FiO2 06/06/17 08:29 Room Air 06/06/17 07:42 36.6 75 20 149/82 (104) 96 Room Air 06/06/17 00:01 Room Air 06/05/17 23:46 36.8 89 20 138/73 (94) 94 Room Air 06/05/17 19:45 Room Air 06/05/17 19:07 36.7 88 18 167/96 (119) 96 Room Air 06/05/17 17:19 Room Air 06/05/17 16:30 36.6 81 18 139/80 (99) 95 Room Air 06/05/17 16:29 36.5 91 20 142/86 (104) 91 Room Air 2.0 06/05/17 12:32 36.5 91 20 142/86 (104) 91 Room Air 2.0 06/05/17 10:14 36.7 107 20 166/89 (114) 94 Room Air 06/05/17 10:08 Room Air Physical Exam General Appearance: WD/WN, + mild distress Eyes: PERRL, EOMI Neck: supple, no JVD Respiratory/Chest: chest non-tender, lungs clear, + decreased breath sounds Cardiovascular: regular rate, rhythm, no murmur Abdomen: normal bowel sounds, non tender, soft Extremities: + pedal edema, + swelling Neurologic/Psychiatric: alert, oriented x 3 Laboratory Results Last 24 Hours Test 06/05/17 11:46 06/05/17 16:47 06/05/17 19:57 06/06/17 07:52 Bedside Glucose 174 mg/dl 130 mg/dl 140 mg/dl 132 mg/dl Assessment and Plan Neutropenia, fever and associated E Coli uti E Coli UTI poa, Continue IV Rocephin x 7 days total course, completed 06/06, will return to suppressive abtx as below Neutropenia associated with chemotherapy -- Prophylactic Bactrim Tuesday and , Acyclovir 200 mg tid, [id number] mg daily (after Rocephin course completed). -- Infectious Disease Consulted and following. B-Cell Lymphoma / NHL:Received E-POCH from 04/28 to 05/02. Received 2nd cycle of R-CHOP 05/19/2017. DVT s/p IVC filter: Not on anticoagulation due to thrombocytopenia. Type 2 DM, usually on januvia, now on ssi HTN diovan Continued [facility] stay due to: multiple IV medications needed, other Discharge planning: residential facility
[2017-06-06 19:29] VITALS: BP 156/87; PULSE 92; TEMP 36.8; O2SAT 97
[2017-06-06 23:31] VITALS: BP 160/81; PULSE 86; TEMP 36.7; O2SAT 95
[2017-06-07] MEDS: HYDROCODONE/ACETAMOPHEN 5/325MG TAB PO PRN (00:10)
[2017-06-07 04:07] VITALS: BP 156/75; PULSE 83; TEMP 36.4; O2SAT 91
[2017-06-07 06:27] VITALS: Ht 154.9 cm; Wt 108.0 kg
[2017-06-07] MEDS: ONDANSETRON INJ 2 MG/ML 2 ML VIAL IV PRN (07:25)
[2017-06-07 07:49] VITALS: BP 156/80; PULSE 83; TEMP 36.4; O2SAT 94
[2017-06-07] MEDS: DRONABINOL 2.5 MG CAP PO SCH (08:15)
[2017-06-07] MEDS: ALLOPURINOL 100 MG TAB PO SCH (08:18)
[2017-06-07] MEDS: LIDODERM (LIDOCAINE) PATCH 5% TD SCH (08:18)
[2017-06-07] MEDS: OXYBUTYNIN CHLORIDE 5 MG TAB PO SCH (08:18)
[2017-06-07] MEDS: PANTOprazole SOD 40 MG TAB PO SCH (08:18)
[2017-06-07] MEDS: VALSARTAN 80 MG TAB PO SCH (08:19)
[2017-06-07] MEDS: INSULIN ASPART 100 UNITS/ML 3 ML PEN SC SCH ×2 (08:27→12:41)
--- NOTE | 2017-06-07 09:36 | Discharge Instructions ---
Discharge Instructions Date of Service Jun 07, 2017. Admission Reason for Admission: Neutropenic Fever Discharge Discharge Diagnosis / Problem: e coli sepsis from urinary source Discharge Goals Goal(s): Diagnostic testing, Therapeutic intervention Activity Recommendations Activity Level: Assistance Required Therapies: Physical Therapy, Occupational Therapy . Additional Information Patient informed of condition: Yes Advance Directives: Yes DNR: No Level of Care: Acute Rehab Communicable Disease: Yes Prognosis: Stable Instructions / Follow-Up Instructions / Follow-Up Neutropenia, fever and associated E Coli uti sepsis E Coli UTI poa, Continue IV Rocephin x 7 days total course, completed 06/06, will return to suppressive abtx as below Neutropenia associated with chemotherapy -- Prophylactic Bactrim Tuesday and , Acyclovir 200 mg tid, [id number] mg daily (after Rocephin course completed). C diff previously restart oral vancomycin and treat 2 weeks, retest -- Infectious Disease Consulted and following. B-Cell Lymphoma / NHL:Received E-POCH from 04/28 to 05/02. Received 2nd cycle of R-CHOP 05/19/2017. DVT s/p IVC filter: Not on anticoagulation due to thrombocytopenia. Type 2 DM, usually on januvia, may augment with ssi HTN diovan Current Hospital Diet Patient's current hospital diet: Regular Diet Discharge Diet Recommended Diet: Diabetes Type 2 Diet Pending Studies Studies pending at discharge: no Medical Emergencies . Who to Call and When: Medical Emergencies: If at any time you feel your situation is an emergency, please call 911 immediately. . Non-Emergent Contact Non-Emergency issues call your: Primary Care Provider . . "Provider Documentation" section prepared by Fahad Jay. . Core Measure Problem Core Measures: None
[2017-06-07 10:09] VITALS: BP 156/80; PULSE 83; TEMP 36.4; O2SAT 94
[2017-06-07 11:17] VITALS: BP 157/77; PULSE 100; TEMP 36.3; O2SAT 96
[2017-06-07] MEDS: CEFTRIAXONE SOD INJ 2,000 MG in DEXTROSE 5% 50ML 50 ML IV SCH (12:42)
--- NOTE | 2017-06-07 13:31 | Discharge Summary ---
Discharge Summary Date of Service Jun 07, 2017. Discharge Summary Admission Date: May 30, 2017 at 15:46 Discharge Date: Jun 07, 2017 Discharge Disposition: Rehab Principal Diagnosis: e coli sepsis, B cell lymphoma Medication Reconciliation New Medications: Acyclovir (Zovirax) 200 Mg Cap 200 MG PO TID, #90 CAP Fluconazole (Fluconazole) 100 Mg Tab 100 MG PO DAILY, #30 DOSE 3 Refills Sulfa/Trimethoprim (Bactrim Ds 800MG/160MG) Tab 1 TAB PO UD, #30 TAB one tablet tuesday and Continued Medications: Acetaminophen Tab (Tylenol) 325 Mg Tab 650 MG PO Q8 PRN for Mild Pain Albuterol Hfa (Ventolin Hfa) 200 Puffs/53578 Mcg Aers 2 PUFFS INH QID PRN for Wheezing Allopurinol (Zyloprim) 100 Mg Tab 200 MG PO DAILY TWO 100 MG TABLETS Baclofen (Baclofen) 20 Mg Tab 20 MG PO BID Biotin (Biotin) 5,000 Mcg Cap 5000 MCG PO DAILY Bismuth Subsalicylate (Pepto-Bismol) 262 Mg/15 Ml Dayanna 15 ML PO QID PRN for Dyspepsia Dicyclomine Hcl (Bentyl) 20 Mg Tab 20 MG PO QID PRN for BLOATING Dronabinol (Marinol) 2.5 Mg Cap 2.5 MG PO AMPM BEFORE LUNCH AND DINNER Fluticasone Propionate (Nasal) (Flonase Allergy Relief) 50 Mcg/Act Spr 2 SPRAYS VIGNESH DAILY PRN for ALLERGIES Furosemide (Lasix) 20 Mg Tab 20 MG PO DAILY Hydrocodone/Acetaminophen 5MG/325MG ([place] 5MG/325MG) Tab 1 TABLET PO Q6 PRN for Severe Pain PRN PAIN Meclizine Hcl (Meclizine Hcl) 25 Mg Tab 1 TAB PO TID PRN for Dizziness or Vertigo Ondansetron Hcl (Zofran) 4 Mg Tab 4 MG PO Q6 PRN for Nausea Oxybutynin Chloride (Ditropan) 5 Mg Tab 10 MG PO DAILY Polyethylene Glycol 3350 (Miralax) 1 Pow Pow 17 GM PO DAILY PRN for Constipation Sennosides-Docusate Sodium (Senna S) 1 Tab Tab 2 TABS PO BID PRN for Constipation Sitagliptin Phosphate (Januvia) 100 Mg Tab 100 MG PO DAILY Valsartan (Diovan) 160 Mg Tab 160 MG PO DAILY Vancomycin Hcl (Vancomycin) 125 Mg Cap 125 MG PO QID Discharge Exam Review of Systems: Constitutional: + weakness, No fever, No chills, No sweats, No weight loss, No fatigue Cardiovascular: No chest pain, No orthopnea, No edema Abdomen: No pain, No nausea, No vomiting, No diarrhea Musculoskeletal: + joint pain, + muscle pain Psychiatric: No depression symptoms, No anhedonism Physical Exam: General Appearance: WD/WN, no apparent distress Neck: supple, no JVD Respiratory/Chest: chest non-tender, lungs clear, normal breath sounds Cardiovascular: regular rate, rhythm, no murmur Abdomen / GI: normal bowel sounds, non tender, soft Extremities: + pedal edema (chronic), + swelling Neurologic/Psychiatric: alert, oriented x 3 Skin: normal color, no rash Hospital Course Neutropenia, fever and associated E Coli uti E Coli UTI poa, Continue IV Rocephin x 7 days total course, completed 06/06, cipro renal dose for another week given sepsis, then will return to suppressive abtx as below Neutropenia associated with chemotherapy -- Prophylactic Bactrim Tuesday and , Acyclovir 200 mg tid, [id number] mg daily (after Rocephin course completed). -- Infectious Disease Consulted and following. B-Cell Lymphoma / NHL:Received E-POCH from 04/28 to 05/02. Received 2nd cycle of R-CHOP 05/19/2017. DVT s/p IVC filter: Not on anticoagulation due to thrombocytopenia. Type 2 DM, resume januvia, if needed consider ssi HTN diovan Total Time Spent: Greater than 30 minutes This includes examination of the patient, discharge planning, medication reconciliation, and communication with other providers. Discharge Instructions Please refer to the electronic Patient Visit Report (Discharge Instructions) for additional information.
[2017-06-21] MEDS ORDERED: FNTTP50 TD (08:45)
[2017-06-21] MEDS ORDERED: OXYC1TAB3 PO (08:45)
[2017-06-21] MEDS ORDERED: ACET-1256 PO (08:45)
[2017-06-21] MEDS ORDERED: MULT-506 PO (08:45)
[2017-06-21] MEDS ORDERED: PPTBS PO (08:45)
[2017-06-21] MEDS ORDERED: BISA1TAB15 PO (08:45)
[2017-06-21] MEDS ORDERED: PANT40TA PO (08:45)
[2017-06-21] MEDS ORDERED: SODIENE PR (08:45)
[2017-06-21] MEDS ORDERED: NVLGI7030 SC (08:45)
[2017-06-21] MEDS ORDERED: DOCU100C31 PO (08:45)
[2017-06-21] MEDS ORDERED: CALC500C3 PO (08:45)
[2017-06-21] MEDS ORDERED: [UNRECOGNIZED DRUG - OTHER] RE (08:45)
[2017-06-21] MEDS ORDERED: LOSA1TAB38 PO (08:45)
[2017-06-21] MEDS ORDERED: BACL1TAB PO (08:45)
[2017-06-21] MEDS ORDERED: FENT25DI10 TOP (08:45)
[2017-06-21] MEDS ORDERED: PRED-301 PO (08:45)
[2017-06-21] MEDS ORDERED: MOML PO (08:45)
[2017-06-21] MEDS ORDERED: LIDOCAINE PATCH TOP (08:45)
[2017-06-21] MEDS ORDERED: PROCHLORPERAZINE PO (08:45)
[2017-06-21] MEDS ORDERED: LIDO2SOL19 TOP (08:45)
[2017-07-01] MEDS ORDERED: ERTA1INJ IV (16:02)
[2017-07-01] MEDS ORDERED: FLV1 PO (16:02)
[2017-07-01] MEDS ORDERED: HYDR-5688 PO (16:02)
[2017-07-01] MEDS ORDERED: MRN/25 PO (16:02)
[2017-07-01] MEDS ORDERED: BACL1TAB PO (16:02)
[2017-07-01] MEDS ORDERED: FENT25DI10 TOP (16:02)
[2017-07-01] MEDS ORDERED: POTTAB2 PO (16:02)
[2017-07-01] MEDS ORDERED: CMPS25 PR (16:02)
[2017-07-01] MEDS ORDERED: LDDP5 TD (16:02)
[2017-07-01] MEDS ORDERED: NITR1CAP16 PO (16:03)
[2017-07-07] MEDS ORDERED: PRED50TA PO (00:27)
== END 2017-06-07 13:13 | DRG 871 ==
LOC: EDBD 11:59 → C.EDA 12:00 → C.4E 15:46 → ENRESERV 15:56
PROVIDERS: ADMIT Hospitalist; ATTEND Internal Medicine
DX: A41.51 Sepsis due to Escherichia coli [E. coli] (principal); D61.810 Antineoplastic chemotherapy induced pancytopenia; N39.0 Urinary tract infection, site not specified; C85.19 Unspecified B-cell lymphoma, extranodal and solid organ sites; T45.1X5A Adverse effect of antineoplastic and immunosuppressive drugs, initial encounter; Z88.0 Allergy status to penicillin; E87.6 Hypokalemia; R50.81 Fever presenting with conditions classified elsewhere; E83.42 Hypomagnesemia; E11.9 Type 2 diabetes mellitus without complications; I10 Essential (primary) hypertension; M1A.9XX0 Chronic gout, unspecified, without tophus (tophi); N20.0 Calculus of kidney; Y92.009 Unspecified place in unspecified non-institutional (private) residence as the place of occurrence of the external cause

== ENCOUNTER → 2017-05-30 | Outpatient (CLI) | payer MEDICARE ==
[2017-05-30 09:39] LABS: BLOOD UREA NITROGEN 14 mg/dl (7-18); BUN/CREATININE RATIO 16.3 (10-20); CALCIUM 8.1 mg/dl (8.5-10.1); CARBON DIOXIDE 31 mmol/L (21-32); CHLORIDE 103 mmol/L (98-107); CREATININE 0.87 mg/dl (0.60-1.20); GLUCOSE 203 mg/dl (70-99); POTASSIUM 2.7 mmol/L (3.5-5.1); SODIUM 141 mmol/L (136-145)
[2017-05-30 10:47] LABS: HEMATOCRIT 20.9 % (37-47); MEAN CORPUSCULAR HEMOGLOBIN 28.9 pg (25-34); PLATELET COUNT 13 K/uL (130-400); RED BLOOD COUNT 2.46 M/uL (4.2-5.4); WHITE BLOOD COUNT 0.18 K/uL (4.8-10.8)
[2017-05-30 11:32] LABS: COMPLETE YES; HYPOCHROMIA PRESENT; LYMPH % 77.8 %; LYMPH ABS # 0.14 K/uL (1.2-3.4); MICROCYTOSIS PRESENT; MONO % 16.7 %; NEUT % 5.5 %; PLT ESTIMATE SIGNIFIC DECREASED
== END | disposition home or self-care (01) ==
LOC: C.LABVPSUA 09:14
PROVIDERS: ATTEND Internal Medicine Critical Care Medicine
DX: C85.10 Unspecified B-cell lymphoma, unspecified site (principal)

== ENCOUNTER 2017-06-24 16:02 | Inpatient (IN) | payer MEDICARE, OTHER ==
[2017-06-24] VITALS (8 sets, daily range): BP systolic 128–177; BP diastolic 75–81; PULSE 101–119; TEMP 36.9–37.9; O2SAT 98–100; Ht 154.9 cm; Wt 107.3 kg
[~2017-06-24] VITALS: Ht 154.9 cm; Wt 107.3 kg
[~2017-06-24 16:02] MED LIST changes: +ACET-1256 PO; +ACYC1CAP8 PO; -ALL100 PO; +ALLO100T PO; +BACL1TAB PO; +BIOT1CAP3 PO; +BISA1TAB15 PO; +BISM262S7 PO; +CALC500C3 PO; +DFL100 PO; +DICY20TA35 PO; +DOCU100C31 PO; +DVN/160 PO; +FENT25DI10 TOP; +FLUT0.15 NAE; +FNTTP50 TD; +FURO-85 PO; +HYDR-5688 PO; +LIDO2SOL19 TOP; +LIDOCAINE PATCH TOP; +LOSA1TAB38 PO; +LRS20 PO; +MECL1TAB42 PO; +MOML PO; +MRN/25 PO; +MULT-506 PO; +NVLGI7030 SC; +ONDA4TAB46 PO; +OXYB5TAB74 PO; +OXYC1TAB3 PO; +PANT40TA PO; +POLY335019 PO; +PPTBS PO; +PRED-301 PO; +PROCHLORPERAZINE PO; +SENN-91 PO; +SITA100T3 PO; +SODIENE PR; +SULF800T23 PO; +VANC5CAP PO; +VNTHFA/IN INH; +[UNRECOGNIZED DRUG - OTHER] RE
[2017-06-24] MEDS ORDERED: SODIUM CHLORIDE 0.9% 1000ML 1,000 ML IV ONE (16:04)
[2017-06-24] MEDS ORDERED: OXYCODONE HCL IR 5 MG TAB (IMMEDIATE RELEASE) PO STA (16:07)
--- NOTE | 2017-06-24 16:27 | EMERGENCY ROOM VISIT NOTE ---
History Report prepared by Porfirio: Tawny Freitas Under the Supervision of: Dr. Damián Whittaker D.O. First contact with patient: 16:03 Stated Complaint: weakness History of Present Illness The patient is a 77 year old female who presents to the Emergency Room with complaints of persistent weakness starting yesterday. The patient presents to the ED by EMS. 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 She was discharged from [facility] yesterday and was staying with her granddaughter. She was complaining of weakness and nausea so she called EMS today. She was diagnosed with advanced B cell lymphoma 2 months ago. The cancer in primarily in her hip. She has been undergoing chemotherapy and has been in the hospital for the past 2 months. She had been at [facility] because of her weakness and was discharged home for the first time yesterday. She is having pain. Her pain is relieved by [place]. She has not had any fever. Her leg swelling has decreased. She has a history of hypertension, type 2 diabetes, and kidney stone. Her blood sugar was 213 today. She has had a tubal ligation and cholecystectomy. She denies any tobacco or alcohol use. She has not been eating or drinking well. Source of History: patient, family, EMS Onset: yesterday Position: other (global) Quality: other (weakness) Timing: other (persistent) Associated Symptoms: + nausea, No fevers Note: Pt reports pain, leg swelling. Review of Systems See HPI for pertinent positives & negatives. A total of 10 systems reviewed and were otherwise negative. Past Medical & Surgical Medical Problems: (1) E-coli UTI (2) Leukocytosis (3) Neutropenia (4) Neutropenic fever (5) Weakness Family History No pertinent family history Social History Smoking Status: Never Smoker Drug Use: none Marital Status: Occupation Status: retired Current/Historical Medications Scheduled Acyclovir (Zovirax), 200 MG PO TID Allopurinol (Zyloprim), 200 MG PO DAILY Dicyclomine Hcl (Bentyl), 20 MG PO QAM Docusate Sodium (Docusate Sodium), 1 CAP PO BID Dronabinol (Marinol), 2.5 MG PO QAM Fentanyl (Duragesic), 25 MCG TOP Q72H Fluconazole (Fluconazole), 100 MG PO QAM Fluticasone Propionate (Nasal) (Flonase Allergy Relief), 2 SPRAYS VIGNESH DAILY Furosemide (Lasix), 20 MG PO QAM Losartan Potassium (Cozaar), 100 MG PO DAILY Magnesium Hydroxide (Milk Of Magnesia), 30 ML PO DIRECTED Multivitamins/Minerals (Mvi With Minerals), 1 TAB PO DAILY Oxybutynin Chloride Er (Ditropan Xl), 10 MG PO QAM Pantoprazole (Protonix), 40 MG PO DAILY Sitagliptin Phosphate (Januvia), 100 MG PO QAM Sulfa/Trimethoprim (Bactrim Ds 800MG/160MG), 1 TAB PO UD Vancomycin Hcl (Vancomycin), 125 MG PO QID Scheduled PRN Acetaminophen (Tylenol), 500 MG PO Q4 PRN for Pain Albuterol Hfa (Ventolin Hfa), 2 PUFFS INH QID PRN for Wheezing Baclofen (Lioresal), 10 MG PO TID PRN for Muscle Spasms Bisacodyl (Dulcolax), 1 SUPP MI UD PRN for Constipation Calcium Carbonate (Tums), 500 MG PO Q4 PRN for Indigestion Hydrocodone/Acetaminophen 5MG/325MG ([place] 5MG/325MG), 1 TABLET PO Q4 PRN for Severe Pain Meclizine Hcl (Meclizine Hcl), 25 MG PO TID PRN for VERTIGO Ondansetron Hcl (Zofran), 4 MG PO Q6 PRN for Nausea Oxycodone HCl (Oxycodone HCl), 5-10 MG PO Q2H PRN for Pain Prochlorperazine (Compazine Supp), 25 MG MI Q6H PRN for Nausea or Vomiting Sennosides-Docusate Sodium (Senna S), 1 TABS PO DAILY PRN for Constipation Allergies Coded Allergies: Cephalosporins (Unverified Allergy, Intermediate, BREATHING PROBLEMS, 06/24) Ciprofloxacin (Verified Allergy, Intermediate, RASH, 06/21/17) Phlebitis Penicillins (Verified Allergy, Mild, HIVES, 06/21/17) Physical Exam Vital Signs Date Time Temp Pulse Resp B/P (MAP) Pulse Ox O2 Delivery O2 Flow Rate FiO2 06/24/17 18:05 97 18 155/81 100 Nasal Cannula 2.0 06/24/17 16:53 95 Nasal Cannula 3.0 06/24/17 16:16 36.4 106 18 163/91 97 Room Air Physical Exam GENERAL: Patient is listless, appears to be ill and frail. EYES: The conjunctivae are clear. The pupils are round and reactive. EARS, NOSE, MOUTH AND THROAT: The nose is without any evidence of any deformity. Mucous membranes are dry tongue is midline NECK: The neck is nontender and supple. RESPIRATORY: Normal respiratory effort is noted there is no evidence of wheezing rhonchi or rales CARDIOVASCULAR: Tachycardic rate but regular rhythm no definite murmur noted. GASTROINTESTINAL: The abdomen is soft. Bowel sounds are present in all quadrants. Abdomen is nontender MUSCULOSKELETAL/EXTREMITIES: There is no evidence of gross deformity full range of motion is noted in the hips and shoulders SKIN: There is pedal edema bilaterally right greater than left, venous stasis changes noted to the left leg, no signs of cellulitis noted, port in the right chest wall, no erythema or swelling was noted. NEUROLOGIC: Patient is oriented x3 strength is diminished but symmetric bilaterally Medical Decision & Procedures ER Provider Diagnostic Interpretation: X-ray results as stated below per interpretation by me and the radiologist. CHEST ONE VIEW PORTABLE HISTORY: 77 years-old Female Sepsis COMPARISON: Chest radiograph 05/30/2017 TECHNIQUE: Portable upright AP view of the chest FINDINGS: Cardiac silhouette is again enlarged. Lungs are mildly hypoinflated. Right internal jugular hemodialysis catheter is seen with distal tip terminating in the region of the right atrium, unchanged. There is atherosclerosis of the aorta. No pneumothorax or large pleural effusion. Linear subsegmental bibasilar and right midlung opacities are seen suggesting atelectasis. Patient obesity is noted. Degenerative changes are seen within the shoulders. There is mild right hemidiaphragmatic elevation which is unchanged. IMPRESSION: Right mid lung and bibasilar atelectasis without acute cardiopulmonary process. The above report was generated using voice recognition software. It may contain grammatical, syntax or spelling errors. Electronically signed by: Gal Grimes M.D. 06/24/2017 4:32 PM Dictated Date/Time: 06/24/2017 4:30 PM Laboratory Results Test 06/24/17 16:37 06/24/17 16:43 Anisocytosis PRESENT Erythrocyte Sedimentation Rate 6 mm/hr (0-21) Activated Partial Thromboplast Time 34.3 SECONDS (21.0-31.0) Partial Thromboplastin Ratio 1.3 Venous Blood pH 7.49 (7.36-7.41) Venous Blood Partial Pressure CO2 39 mmHg (38.0-50.0) Venous Blood Partial Pressure O2 33 mmHg Venous Blood HCO3 29 mmol/L Venous Blood Oxygen Saturation 65.1 % Venous Blood Base Excess 4.8 mmol/L Total Creatine Kinase 8 U/L (26-192) Creatine Kinase MB < 0.5 ng/ml (0.5-3.6) Creatine Kinase MB Ratio (0-3.0) Troponin I < 0.015 ng/ml (0-0.045) C-Reactive Protein 18.70 mg/dl (0-0.29) Pro-B-Type Natriuretic Peptide 1107 pg/ml (0-900) Lipase 40 U/L (73-393) Procalcitonin 1.47 ng/ml (0-0.5) Bedside Lactic Acid Venous 1.40 mmol/L (0.90-1.70) Laboratory results per my review. Medications Administered Medications (Trade) Dose Ordered Sig/[place] Route Start Time Stop Time Status Last Admin Dose Admin Sodium Chloride 1,000 ml @ 999 mls/hr Q1H1M ONCE IV 06/24/17 16:04 06/24/17 17:04 DC 06/24/17 16:53 999 MLS/HR Oxycodone HCl (Roxicodone Immediate Rel Tab) 5 mg NOW STAT PO 06/24/17 16:07 06/24/17 16:08 DC 06/24/17 17:00 5 MG Magnesium Sulfate (Magnesium Sulfate) 2 gm NOW STAT IV 06/24/17 18:45 06/24/17 18:46 DC 06/24/17 18:56 2 GM Acetaminophen (Tylenol Tab) 650 mg Q4H PRN PO 06/24/17 19:15 07/24/17 19:14 06/25/17 07:49 650 MG Ondansetron HCl (Zofran Inj) 4 mg Q6H PRN IV 06/24/17 19:15 07/24/17 19:14 06/24/17 20:21 4 MG Acetaminophen/ Hydrocodone Bitart ([place] 5/325 Tab) 1 tab Q4 PRN PO 06/24/17 19:15 07/08/17 19:14 06/25/17 08:28 1 TAB ECG Indication: weakness Rate (beats per minute): 91 Rhythm: sinus rhythm Findings: ST depression (Anterior), T-wave inversion (Anterior), no ectopy Comparison ECG Date: 30-May-2017 Change: no significant change ED Course 1557: The patient was evaluated in room C6. A complete history and physical examination were performed. 1604: NSS 1000 ml @ 999 mls/hr IV. 1607: Oxycodone HCl 5 mg PO. 1835: Upon reevaluation, the patient is stable. I discussed results and treatment plan with her and her family. They verbalize agreement and understanding. The patient will be evaluated for further management and care. 1843: I discussed the patient's case with Dr. Wilcox, Internal medicine. The patient will be evaluated for further management. 184: Magnesium Sulfate 2 gm IV. Medical Decision Prior records/ancillary studies reviewed and summarized above. Nursing notes reviewed. Additional history obtained from family. The patient's history was concerning for weakness. Differential diagnosis: Etiologies such as metabolic, infection, hypo/hyperglycemia, electrolyte abnormalities, cardiac sources, intracerebral event, toxicologic, neurologic, as well as others were entertained. The patient is a 77-year-old female who has a history of hematologic cancer who presented to the emergency department for an evaluation of generalized weakness. It sounds as though the patient has been very ill since her diagnosis recently. She was seen in our facility and admitted for a prolonged period of time but was recently discharged to inpatient rehabilitation. She was discharged recently went home but she's been very weak and has not been doing well and her granddaughter brought her to the emergency department for an evaluation. The patient did not have a fever but she is severely pancytopenic. I discussed her case with the emergency Department oncologist and she was given IV antibiotics. She was also treated with IV fluids and IV magnesium. I discussed the patient's laboratory radiographic studies with her. I also discussed this case with the on-call [facility] [place] hospitalist. They've agreed to evaluate the patient in the emergency department for further management and disposition. Medication Reconcilliation Current Medication List: was personally reviewed by me Blood Pressure Screening Patient's blood pressure: Normal blood pressure Will be monitored by hospitalist. Consults Time Called: 1838 Consulting Physician: Dr. Wilcox, Internal medicine Returned Call: [phone] I discussed the patient's case with him. The patient will be evaluated for further management. Impression Primary Impression: Pancytopenia Additional Impressions: Weakness Hypomagnesemia Scribe Attestation The scribe's documentation has been prepared under my direction and personally reviewed by me in its entirety. I confirm that the note above accurately reflects all work, treatment, procedures, and medical decision making performed by me. Departure Information Dispostion Being Evaluated By Hospitalist Referrals [facility] ([facility]) Problem Qualifiers
--- NOTE | 2017-06-24 16:33 | DIAGNOSTIC IMAGING REPORT ---
CHEST ONE VIEW PORTABLE HISTORY: 77 years-old Female Sepsis COMPARISON: Chest radiograph 05/30/2017 TECHNIQUE: Portable upright AP view of the chest FINDINGS: Cardiac silhouette is again enlarged. Lungs are mildly hypoinflated. Right internal jugular hemodialysis catheter is seen with distal tip terminating in the region of the right atrium, unchanged. There is atherosclerosis of the aorta. No pneumothorax or large pleural effusion. Linear subsegmental bibasilar and right midlung opacities are seen suggesting atelectasis. Patient obesity is noted. Degenerative changes are seen within the shoulders. There is mild right hemidiaphragmatic elevation which is unchanged. IMPRESSION: Right mid lung and bibasilar atelectasis without acute cardiopulmonary process. The above report was generated using voice recognition software. It may contain grammatical, syntax or spelling errors. Electronically signed by: Gal Grimes M.D. 06/24/2017 4:32 PM Dictated Date/Time: 06/24/2017 4:30 PM
[2017-06-24] MEDS ORDERED: MULT-513 PO (16:34)
[2017-06-24] MEDS ORDERED: DFL100 PO (16:34)
[2017-06-24] MEDS ORDERED: OXYB10TA PO (16:34)
[2017-06-24] MEDS ORDERED: BISA10SU3 PR (16:34)
[2017-06-24] MEDS ORDERED: OXYC-609 PO (16:34)
[2017-06-24] MEDS ORDERED: CMPS25 PR (16:34)
[2017-06-24] MEDS ORDERED: LOSA100T65 PO (16:35)
[2017-06-24 16:53] LABS: VEN BLD GAS O2 SATURATION 65.1 %; VEN BLOOD GAS BASE EXCESS 4.8 mmol/L
[2017-06-24 17:18] LABS: INR 1.4 (0.9-1.1); PARTIAL THROMBOPLASTIN RATIO 1.3; PROTHROMBIN TIME (PATIENT) 15.1 SECONDS (9.0-12.0)
[2017-06-24 17:33] LABS: HEMATOCRIT 23.9 % (37-47); MEAN CELL VOLUME 86.9 fL (80-100); MEAN CORPUSCULAR HEMOGLOBIN 29.8 pg (25-34); MEAN CORPUSCULAR HGB CONC 34.3 g/dl (32-36); PLATELET COUNT 6 K/uL (130-400); RED BLOOD COUNT 2.75 M/uL (4.2-5.4)
[2017-06-24 17:36] LABS: ALT/SGPT 24 U/L (12-78); AST/SGOT 5 U/L (15-37); BLOOD UREA NITROGEN 18 mg/dl (7-18); BUN/CREATININE RATIO 19.9 (10-20); CALCIUM 8.2 mg/dl (8.5-10.1); CARBON DIOXIDE 31 mmol/L (21-32); CHLORIDE 99 mmol/L (98-107); CREATININE 0.88 mg/dl (0.60-1.20); GLUCOSE 252 mg/dl (70-99); MAGNESIUM 1.5 mg/dl (1.8-2.4); POTASSIUM 3.1 mmol/L (3.5-5.1); SODIUM 135 mmol/L (136-145)
[2017-06-24 17:39] LABS: ALB/GLOB RATIO 0.9 (0.9-2); ALKALINE PHOSPHATASE 104 U/L (45-117); PHOSPHORUS 2.1 mg/dl (2.5-4.9)
[2017-06-24] MEDS ORDERED: MAGNESIUM SULFATE 1GM / D5W 1 GM BAG IV STA (18:45)
[2017-06-24] MEDS ORDERED: BISACODYL 10 MG SUPP PR PRN (19:15)
[2017-06-24] MEDS ORDERED: MAGNESIUM HYDROXIDE SUSP 30 ML UDC PO PRN (19:15)
[2017-06-24] MEDS ORDERED: MECLIZINE HCL 25 MG TAB PO PRN (19:15)
[2017-06-24] MEDS ORDERED: PROCHLORPERAZINE 25 MG SUPP PR PRN (19:15)
[2017-06-24] MEDS ORDERED: ONDANSETRON 4 MG TAB PO PRN (19:15)
[2017-06-24] MEDS ORDERED: ALBUTEROL HFA 8 GM INHALER INH PRN (19:15)
[2017-06-24] MEDS ORDERED: ALUMINUM/MAGNESIUM/SIMETH (MAALOX MAX) 30 ML UDC PO PRN (19:15)
[2017-06-24] MEDS ORDERED: CALCIUM CARBONATE 500 MG CHEWABLE PO PRN (19:15)
[2017-06-24] MEDS ORDERED: BACLOFEN 10 MG TAB PO PRN (19:15)
[2017-06-24] MEDS ORDERED: POLYETHYLENE (MIRALAX) 17 GM PACK PO PRN (19:15)
[2017-06-24] MEDS ORDERED: DOCUSATE SODIUM/SENNA 50/8.6MG TAB PO PRN (19:15)
[2017-06-24 19:18] LABS: ANISOCYTOSIS PRESENT; COMPLETE YES
[2017-06-24 19:48] LABS: URINE APPEARANCE CLOUDY (CLEAR); URINE BILIRUBIN NEG (NEG); URINE COLOR DK YELLOW; URINE EPITHELIAL CELL AUTO >30 /lpf (0-5); URINE NITRITE POS (NEG); URINE PH 6.5 (4.5-7.5); URINE SPECIFIC GRAVITY 1.021 (1.000-1.030); UROBILINOGEN NEG (NEG); ZZUR CULT IF INDIC CLEAN CATCH YES
[2017-06-24] MEDS ORDERED: CEFEPIME IV 2000 MG in DEXTROSE 5% 100ML IV ONE (19:50)
[2017-06-24] MEDS ORDERED: MAGNESIUM OXIDE 400 MG TAB PO STA (19:58)
[2017-06-24 19:59] LABS: MANUAL MICROSCOPIC REQUIRED? NO; REVIEW REQ? YES
[2017-06-24] MEDS: ONDANSETRON INJ 2 MG/ML 2 ML VIAL IV PRN (20:21)
[2017-06-24] MEDS: DOCUSATE SODIUM 100 MG CAP PO SCH ×2 (21:00→22:53)
[2017-06-24] MEDS: ACYCLOVIR 200 MG CAP PO SCH (22:54)
[2017-06-25] VITALS (20 sets, daily range): BP systolic 111–174; BP diastolic 70–92; PULSE 82–105; TEMP 36.8–39.9; O2SAT 94–100
--- NOTE | 2017-06-25 01:51 | HISTORY & PHYSICAL EXAMINATION ---
DATE OF ADMISSION: 06/24/2017 CHIEF COMPLAINT: Generalized weakness. 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 The patient was admitted to [facility] and received 2 cycles of DA-EPOCH-R. After that, the patient was discharged to rehab and then had a cycle of chemotherapy with Dr. Vu which I do not have details for that but it was on 06/16/2017. The patient went to rehab and received 2 units of blood 3 days ago. After that, she was discharged from rehab home yesterday. This morning the visiting nurse noticed that her blood pressure was very low, probably 70/50, and the patient was feeling extremely weak. Also, the patient stated earlier this morning she had some chills but she did not check her temperature. She was brought to the ED. By the time she came to the ED, her pressure was actually within normal range, but her platelets were found to be 6, white blood cell count was found to be 0.1, hemoglobin was 8, and she was extremely fatigued and tired, so she will be admitted for further evaluation and management. PAST MEDICAL HISTORY: She has a history of staghorn calculus and stent, also has a history of UTI that grew E. coli in February. The patient does have significant ALLERGY TO PENICILLIN AND CEPHALOSPORINS but tolerated imipenem well. Currently on prophylaxis with acyclovir, Bactrim DS, vancomycin p.o., and fluconazole. PAST MEDICAL HISTORY: 1. UTI as mentioned above. 2. Staghorn calculus, status post stent placement. 3. Hypertension. 4. Morbid obesity. 5. Diabetes mellitus, on oral hypoglycemic. REVIEW OF SYSTEMS: Denies any headache, double vision, blurry vision. Denies any chest pain or palpitation. Denies any cough, wheezing, shortness of breath. Denies any diarrhea, blood in the stool. Denies any burning sensation in the urine or blood. Denies any focal weakness, tingling, numbness. Rest of the review of system is negative. SOCIAL HISTORY: Nonsmoker. Does not drink. . Retired. FAMILY HISTORY: No pertinent family history. CURRENT MEDICATIONS: 1. Acyclovir. 2. Allopurinol. 3. Bentyl. 4. Docusate. 5. Marinol. 6. Fentanyl patch. 7. Fluconazole. 8. Flonase nasal spray. 9. Lasix. 10. Losartan 100 mg daily. 11. Magnesium hydroxide. 12. Multivitamins. 13. Oxybutynin. 14. Protonix. 15. Januvia. 16. Bactrim DS. 17. Vancomycin p.o. for prophylaxis. 18. P.r.n. medications including acetaminophen, albuterol, baclofen, bisacodyl, calcium carbonate/Tums, [place] for pain, meclizine, Zofran, oxycodone, Compazine, Sen[place]. ALLERGIES: TO CEPHALOSPORIN, CIPRO AND PENICILLIN. THE PATIENT STATES SHE GETS SHORTNESS OF BREATH IF SHE GETS CEPHALOSPHORIN. PHYSICAL EXAMINATION: VITAL SIGNS: Temperature 36.4, heart rate is 97, respiration 18, blood pressure here is 155/81, saturation is 95% on 3 liters. GENERAL: The patient looks sick, in mild distress. HEENT: No jaundice, no pallor. Wet mucous membrane. NECK: Supple. HEART: S1, S2 normal. No gallop, rub or murmur. LUNGS: Clear to auscultation bilaterally. Normal chest wall expansion. ABDOMEN: Soft, nontender, nondistended. NEUROLOGIC: Awake, alert, oriented to time, place and person. Moves all extremities. Sensation intact. Cranial nerves II-XII appears to be intact. EXTREMITIES: No joint swelling or erythema, but chronically her left jensen is smaller in diameter than the right jensen secondary to previous DVTs. The patient does have an IVC filter placed. SKIN: The patient does have petechiae in skin of both lower extremities. IMAGING: Chest x-ray showed right mid lung and bibasilar atelectasis without acute cardiopulmonary process. LABORATORY DATA: White blood cell count 0.1, hemoglobin 8.2 and platelet is 6. Blood sugar is 250. BUN is 18, creatinine 0.8. Sodium 135, potassium 3.1. ASSESSMENT: 1. Severe thrombocytopenia and neutropenia secondary to chemotherapy. 2. Non-Hodgkin lymphoma with positive C-MYC rearrangement, currently on chemotherapy. 3. Hypotension earlier today at home with chills, resolved in ED. 4. Hypertension, currently blood pressure meds on hold. 5. History of deep venous thrombosis, status post inferior vena cava filter. 6. Morbid obesity. 7. Diabetes mellitus, on oral hypoglycemic. PLAN: 1. Admit to telemetry. 2. Transfusion of 2 units single donor platelets, has been discussed with Dr. 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 3. IV fluid hydration. 4. Neutropenic precaution. 5. Check white blood cell count daily with differential. 6. Avoid blood pressure medications. Held the patient's lisinopril and Lasix at this point given her earlier history of hypotension, can be restarted accordingly. 7. Continue the patient on fluconazole/Bactrim DS/oral vancomycin/acyclovir. 8. If the patient shows any signs of fever or chills or hypotension, then imipenem should be initiated immediately. The patient does have ALLERGY TO CEPHALOSPORIN AND PENICILLIN but tolerated imipenem in the past. 9. Send urine culture and blood cultures. 10. Consult Dr. Vu/case discussed with Dr. Vu, and neutropenia and thrombocytopenia is expected in her situation with current chemotherapy. 11. Avoid pharmacologic DVT prophylaxis. Also avoid mechanical SCD to avoid trauma to the muscles of the lower extremity. 12. Continue pain management with fentanyl patch. 13. Case was discussed with family and the patient is currently full code.
[2017-06-25 07:35] LABS: LYMPH ABS # 0.09 K/uL (1.2-3.4)
[2017-06-25] MEDS: ACETAMINOPHEN 325 MG TAB PO PRN (07:49)
[2017-06-25] MEDS: CHECK FENTANYL PATCH PLACEMENT SCH ×3 (07:49→15:54)
[2017-06-25] MEDS: FLUTICASONE PROPIONATE NA SPR 16 GM BTL NAE SCH (07:49)
[2017-06-25] MEDS: HYDROCODONE/ACETAMOPHEN 5/325MG TAB PO PRN ×2 (08:28→15:54)
[2017-06-25] MEDS: DRONABINOL 2.5 MG CAP PO SCH (08:28)
[2017-06-25] MEDS ORDERED: FUROSEMIDE 20 MG TAB PO SCH (09:00)
[2017-06-25] MEDS: DICYCLOMINE HCL 20 MG TAB PO SCH (09:43)
[2017-06-25] MEDS: FLUCONAZOLE 100 MG TAB PO SCH (09:43)
[2017-06-25] MEDS: OXYBUTYNIN CHLORIDE 5 MG TABCR PO SCH (09:43)
[2017-06-25] MEDS: ALLOPURINOL 100 MG TAB PO SCH (09:44)
[2017-06-25 10:05] LABS: INR 1.3 (0.9-1.1); PROTHROMBIN TIME (PATIENT) 14.6 SECONDS (9.0-12.0)
[2017-06-25 10:27] LABS: HEMATOCRIT 20.6 % (37-47); MEAN CELL VOLUME 86.9 fL (80-100); MEAN CORPUSCULAR HEMOGLOBIN 28.7 pg (25-34); MEAN PLATELET VOLUME 10.2 fL (7.4-10.4); PLATELET COUNT 19 K/uL (130-400); RED BLOOD COUNT 2.37 M/uL (4.2-5.4); WHITE BLOOD COUNT 0.12 K/uL (4.8-10.8)
[2017-06-25 10:31] LABS: CREATININE 0.88 mg/dl (0.60-1.20); MAGNESIUM 1.8 mg/dl (1.8-2.4)
[2017-06-25 10:34] LABS: ALB/GLOB RATIO 0.8 (0.9-2); PHOSPHORUS 2.1 mg/dl (2.5-4.9)
[2017-06-25] MEDS ORDERED: LIDODERM (LIDOCAINE) PATCH 5% TD ONE (10:50)
[2017-06-25 10:51] LABS: BASO ABS # 0.01 K/uL (0-0.2); BASOPHIL % 7.5 %; COMPLETE YES; LYMPH ABS # 0.08 K/uL (1.2-3.4); LYMPHOCYTE % 62.5 %
[2017-06-25] MEDS: PANTOprazole SOD 40 MG TAB PO SCH (11:16)
[2017-06-25] MEDS: CEROVITE ADV FORMULA TAB PO SCH (11:16)
[2017-06-25] MEDS: ACYCLOVIR 200 MG CAP PO SCH ×3 (11:16→21:06)
[2017-06-25] MEDS: DOCUSATE SODIUM 100 MG CAP PO SCH ×2 (11:16→21:00)
[2017-06-25] MEDS ORDERED: FILGRASTIM 480 MCG/1.6 ML VIAL SC ONE (11:30)
--- NOTE | 2017-06-25 14:40 | Oncology Consultation ---
Oncology/Heme Consultation Date of Consultation: Jun 25, 2017. Attending Physician: Gaby Peres MD Reason for Consultation: High grade B cell lymphoma Pancytopenia History of Present Illness Ms. 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 She is currently undergoing chemotherapy, which has been complicated by recurring cytopenias. Her most recent cycle was . She received Neulasta the following day (06/17). She presented yesterday with extreme fatigue, generalized weakness, and dehydration. She was found to be pancytopenic with a platelet count <10. She received two pools of platelets and her count is up today. Her hemoglobin fell from last night to this AM. She denies any bleeding, mucosal petechiae, or bruising. She also denies any fevers or localizing infectious symptoms. Past Medical/Surgical History Medical Problems: (1) Hypokalemia Status: Acute (2) Hypomagnesemia Status: Acute (3) Neutropenia Status: Acute (4) Pancytopenia Status: Acute (5) Pancytopenia Status: Acute (6) Sepsis Status: Acute (7) UTI (urinary tract infection) Status: Acute Family History No pertinent family history Social History Smoking Status: Never Smoker Drug Use: none Marital Status: Occupation Status: retired Allergies Coded Allergies: Cephalosporins (Unverified Allergy, Intermediate, BREATHING PROBLEMS, 06/24) Ciprofloxacin (Verified Allergy, Intermediate, RASH, 06/21/17) Phlebitis Penicillins (Verified Allergy, Mild, HIVES, 06/21/17) Home Medications Scheduled Acyclovir (Zovirax), 200 MG PO TID Allopurinol (Zyloprim), 200 MG PO DAILY Dicyclomine Hcl (Bentyl), 20 MG PO QAM Docusate Sodium (Docusate Sodium), 1 CAP PO BID Dronabinol (Marinol), 2.5 MG PO QAM Fentanyl (Duragesic), 25 MCG TOP Q72H Fluconazole (Fluconazole), 100 MG PO QAM Fluticasone Propionate (Nasal) (Flonase Allergy Relief), 2 SPRAYS VIGNESH DAILY Furosemide (Lasix), 20 MG PO QAM Losartan Potassium (Cozaar), 100 MG PO DAILY Magnesium Hydroxide (Milk Of Magnesia), 30 ML PO DIRECTED Multivitamins/Minerals (Mvi With Minerals), 1 TAB PO DAILY Oxybutynin Chloride Er (Ditropan Xl), 10 MG PO QAM Pantoprazole (Protonix), 40 MG PO DAILY Sitagliptin Phosphate (Januvia), 100 MG PO QAM Sulfa/Trimethoprim (Bactrim Ds 800MG/160MG), 1 TAB PO UD Vancomycin Hcl (Vancomycin), 125 MG PO QID Scheduled PRN Acetaminophen (Tylenol), 500 MG PO Q4 PRN for Pain Albuterol Hfa (Ventolin Hfa), 2 PUFFS INH QID PRN for Wheezing Baclofen (Lioresal), 10 MG PO TID PRN for Muscle Spasms Bisacodyl (Dulcolax), 1 SUPP HI UD PRN for Constipation Calcium Carbonate (Tums), 500 MG PO Q4 PRN for Indigestion Hydrocodone/Acetaminophen 5MG/325MG ([place] 5MG/325MG), 1 TABLET PO Q4 PRN for Severe Pain Meclizine Hcl (Meclizine Hcl), 25 MG PO TID PRN for VERTIGO Ondansetron Hcl (Zofran), 4 MG PO Q6 PRN for Nausea Oxycodone HCl (Oxycodone HCl), 5-10 MG PO Q2H PRN for Pain Prochlorperazine (Compazine Supp), 25 MG HI Q6H PRN for Nausea or Vomiting Sennosides-Docusate Sodium (Senna S), 1 TABS PO DAILY PRN for Constipation Current Inpatient Medications Current Inpatient Medications Medications (Trade) Dose Ordered Sig/[place] Route Start Time Stop Time Status Last Admin Dose Admin Acetaminophen (Tylenol Tab) 650 mg Q4H PRN PO 06/24/17 19:15 07/24/17 19:14 06/25/17 07:49 650 MG Al Hydrox/Mg Hydrox/Simethicone (Maalox Max Susp) 15 ml Q4H PRN PO 06/24/17 19:15 07/24/17 19:14 Magnesium Hydroxide (Milk Of Magnesia Susp) 30 ml Q6H PRN PO 06/24/17 19:15 07/24/17 19:14 Polyethylene (Miralax Powder Packet) 17 gm DAILY PRN PO 06/24/17 19:15 07/24/17 19:14 Ondansetron HCl (Zofran Inj) 4 mg Q6H PRN IV 06/24/17 19:15 07/24/17 19:14 06/24/17 20:21 4 MG Acyclovir (Zovirax Cap) 200 mg TID PO 06/24/17 21:00 07/24/17 20:59 06/25/17 11:16 200 MG Albuterol (Ventolin Hfa Inhaler) 2 puffs QID PRN INH 06/24/17 19:15 07/24/17 19:14 Allopurinol (Zyloprim Tab) 200 mg DAILY PO 06/25/17 09:00 07/25/17 08:59 06/25/17 09:44 200 MG Baclofen (Lioresal Tab) 10 mg TID PRN PO 06/24/17 19:15 07/24/17 19:14 Bisacodyl (Dulcolax Supp) 10 mg DAILY PRN HI 06/24/17 19:15 07/24/17 19:14 Calcium Carbonate (Tums Chew Tab) 500 mg Q4H PRN PO 06/24/17 19:15 07/24/17 19:14 Dicyclomine HCl (Bentyl Tab) 20 mg QAM PO 06/25/17 09:00 07/25/17 08:59 06/25/17 09:43 20 MG Docusate Sodium (coLACE CAP) 100 mg BID PO 06/24/17 21:00 07/24/17 20:59 06/25/17 11:16 100 MG Dronabinol (Marinol Cap) 2.5 mg QAM PO 06/25/17 09:00 07/25/17 08:59 06/25/17 08:28 2.5 MG Fentanyl (Duragesic Patch) 25 mcg Q72H TD 06/26/17 09:00 07/10/17 08:59 Fluconazole (Diflucan Tab) 100 mg QAM PO 06/25/17 09:00 07/25/17 08:59 06/25/17 09:43 100 MG Fluticasone Propionate (Flonase Nasal [place]) 2 sprays DAILY VIGNESH 06/25/17 09:00 07/25/17 08:59 06/25/17 07:49 2 SPRAYS Acetaminophen/ Hydrocodone Bitart ([place] 5/325 Tab) 1 tab Q4 PRN PO 06/24/17 19:15 07/08/17 19:14 06/25/17 08:28 1 TAB Meclizine HCl (Antivert Tab) 25 mg TID PRN PO 06/24/17 19:15 07/24/17 19:14 Multivitamins/ Minerals (Multivitamin W/ Minerals Tab) 1 tab DAILY PO 06/25/17 09:00 07/25/17 08:59 06/25/17 11:16 1 TAB Ondansetron HCl (Zofran Tab) 4 mg Q6 PRN PO 06/24/17 19:15 07/24/17 19:14 Oxybutynin Chloride (Ditropan-Xl Tab) 10 mg QAM PO 06/25/17 09:00 07/25/17 08:59 06/25/17 09:43 10 MG Pantoprazole Sodium (Protonix Tab) 40 mg DAILY PO 06/25/17 09:00 07/25/17 08:59 06/25/17 11:16 40 MG Prochlorperazine (Compazine Supp) 25 mg Q6H PRN HI 06/24/17 19:15 07/24/17 19:14 Senna/Docusate Sodium (Senokot S Tab) 1 tab DAILY PRN PO 06/24/17 19:15 07/24/17 19:14 Trimethoprim/ Sulfamethoxazole (Septra Ds 800/ 160MG Tab) 1 tab MoTh@0900 PO 06/27/17 09:00 07/27/17 08:59 Miscellaneous (Fentanyl Patch Remove & Waste) 1 ea Q72H N/A 06/26/17 08:59 07/26/17 08:58 Miscellaneous Information (Check Fentanyl Patch Placement) 1 ea QS N/A 06/25/17 00:00 07/25/17 00:00 06/25/17 07:49 1 EA Lidocaine (Lidoderm Patch 5%) 1 patch QAM TD 06/26/17 09:00 07/26/17 08:59 Miscellaneous (Remove Lidoderm Patch) 1 ea DAILY@21 N/A 06/25/17 21:00 07/25/17 20:59 Review of Systems Constitutional: + weakness, + fatigue, No fever Eyes: No worsening of vision ENT: No unusual epistaxis Respiratory: No cough, No shortness of breath Cardiovascular: No chest pain Abdomen: No pain, No nausea, No GI bleeding Musculoskeletal: No joint pain, No muscle pain Genitourinary - Female: No dysuria, No hematuria Hematologic / Lymphatic: No abnormal bleeding/bruising Integumentary: No rash, No bleeding Physical Exam Date Time Temp Pulse Resp B/P (MAP) Pulse Ox O2 Delivery O2 Flow Rate FiO2 06/25/17 14:00 36.9 85 16 156/77 95 06/25/17 13:30 36.9 86 16 143/80 100 2.0 06/25/17 13:15 36.9 85 16 148/81 100 2.0 06/25/17 13:10 37.0 87 16 134/75 100 2.0 06/25/17 12:00 Room Air 06/25/17 10:59 37.3 82 20 121/72 (88) 98 Nasal Cannula 2.0 06/25/17 09:00 37.3 140/77 (98) 06/25/17 08:00 Room Air 06/25/17 07:18 37.9 94 18 156/81 (106) 94 Nasal Cannula 2.0 06/25/17 05:43 37.4 92 20 111/92 99 06/25/17 05:39 37.4 94 20 174/79 97 06/25/17 05:04 37.6 93 18 142/78 95 06/25/17 04:29 37.3 92 20 141/76 99 06/25/17 04:08 37.6 94 20 130/75 99 06/25/17 04:00 Room Air 06/25/17 03:44 37.5 105 20 149/80 96 06/25/17 00:00 Room Air 06/24/17 23:57 37.5 101 18 139/81 99 06/24/17 23:18 37.9 103 16 137/76 99 06/24/17 22:56 37.5 106 18 143/81 100 06/24/17 22:36 37.6 105 20 128/76 98 06/24/17 22:12 37.7 104 20 129/80 98 06/24/17 21:58 37.8 109 18 138/76 98 06/24/17 21:41 36.9 116 22 139/80 98 06/24/17 20:38 37.6 119 19 177/75 99 Room Air 06/24/17 20:34 101 18 174/89 97 06/24/17 20:00 101 18 174/89 97 Nasal Cannula 2.0 06/24/17 18:05 97 18 155/81 100 Nasal Cannula 2.0 06/24/17 16:53 95 Nasal Cannula 3.0 06/24/17 16:16 36.4 106 18 163/91 97 Room Air General Appearance: no apparent distress, + obese, + pertinent finding ( chronically ill appearing and weak) Eyes: EOMI, sclerae normal ENT: pharynx normal (no petechiae or purpura) Respiratory/Chest: lungs clear Cardiovascular: regular rate, rhythm Abdomen/GI: non tender, soft Extremities/Musculoskelatal: normal inspection, non-tender Neurologic/Psych: alert, oriented x 3 Laboratory Results Last 24 Hours Test 06/24/17 16:37 06/24/17 16:43 06/24/17 19:34 06/24/17 22:15 White Blood Count 0.10 K/uL Red Blood Count 2.75 M/uL Hemoglobin 8.2 g/dL Hematocrit 23.9 % Mean Corpuscular Volume 86.9 fL Mean Corpuscular Hemoglobin 29.8 pg Mean Corpuscular Hemoglobin Concent 34.3 g/dl Platelet Count 6 K/uL RDW Standard Deviation 51.1 fL RDW Coefficient of Variation 16.3 % Neutrophils % (Manual) 3.0 % Lymphocytes % (Manual) 85.0 % Monocytes % (Manual) 3.0 % Eosinophils % (Manual) 9.0 % Basophils % (Manual) 0.0 % Neutrophils # (Manual) 0.00 K/uL Total Absolute Neutrophils 0.00 K/uL Lymphocytes # (Manual) 0.09 K/uL Total Absolute Lymphocytes 0.09 K/uL Monocytes # (Manual) 0.00 K/uL Eosinophils # (Manual) 0.01 K/uL Basophils # (Manual) 0.00 K/uL Anisocytosis PRESENT Erythrocyte Sedimentation Rate 6 mm/hr Prothrombin Time 15.1 SECONDS Prothromb Time International Ratio 1.4 Activated Partial Thromboplast Time 34.3 SECONDS Partial Thromboplastin Ratio 1.3 Venous Blood pH 7.49 Venous Blood Partial Pressure CO2 39 mmHg Venous Blood Partial Pressure O2 33 mmHg Venous Blood HCO3 29 mmol/L Venous Blood Oxygen Saturation 65.1 % Venous Blood Base Excess 4.8 mmol/L Sodium Level 135 mmol/L Potassium Level 3.1 mmol/L Chloride Level 99 mmol/L Carbon Dioxide Level 31 mmol/L Anion Gap 5.0 mmol/L Blood Urea Nitrogen 18 mg/dl Creatinine 0.88 mg/dl Est Creatinine Clear Calc Drug Dose 62.0 ml/min Estimated GFR () 74.5 Estimated GFR (Non- 64.3 BUN/Creatinine Ratio 19.9 Random Glucose 252 mg/dl Calcium Level 8.2 mg/dl Phosphorus Level 2.1 mg/dl Magnesium Level 1.5 mg/dl Total Bilirubin 1.1 mg/dl Aspartate Amino Transf (AST/SGOT) 5 U/L Alanine Aminotransferase (ALT/SGPT) 24 U/L Alkaline Phosphatase 104 U/L Total Creatine Kinase 8 U/L Creatine Kinase MB < 0.5 ng/ml Creatine Kinase MB Ratio Troponin I < 0.015 ng/ml C-Reactive Protein 18.70 mg/dl Pro-B-Type Natriuretic Peptide 1107 pg/ml Total Protein 4.5 gm/dl Albumin 2.1 gm/dl Globulin 2.4 gm/dl Albumin/Globulin Ratio 0.9 Lipase 40 U/L Procalcitonin 1.47 ng/ml Bedside Lactic Acid Venous 1.40 mmol/L Urine Color DK YELLOW Urine Appearance CLOUDY Urine pH 6.5 Urine Specific [place] 1.021 Urine Protein 2+ Urine Glucose (UA) 2+ Urine Ketones NEG Urine Occult Blood 1+ Urine Nitrite POS Urine Bilirubin NEG Urine Urobilinogen NEG Urine Leukocyte Esterase TRACE Urine WBC (Auto) 5-10 /hpf Urine RBC (Auto) 0-4 /hpf Urine Hyaline Casts (Auto) 1-5 /lpf Urine Epithelial Cells (Auto) >30 /lpf Urine Bacteria (Auto) 4+ Urine Renal Epithelial Cells >30 /lpf Urine Yeast (Auto) PRESENT Bedside Glucose 212 mg/dl Test 06/25/17 07:01 06/25/17 09:40 Bedside Glucose 198 mg/dl White Blood Count 0.12 K/uL Red Blood Count 2.37 M/uL Hemoglobin 6.8 g/dL Hematocrit 20.6 % Mean Corpuscular Volume 86.9 fL Mean Corpuscular Hemoglobin 28.7 pg Mean Corpuscular Hemoglobin Concent 33.0 g/dl Platelet Count 19 K/uL Mean Platelet Volume 10.2 fL RDW Standard Deviation 50.8 fL RDW Coefficient of Variation 16.2 % Neutrophils % (Manual) 15.0 % Lymphocytes % (Manual) 62.5 % Monocytes % (Manual) 5.0 % Eosinophils % (Manual) 10.0 % Basophils % (Manual) 7.5 % Neutrophils # (Manual) 0.02 K/uL Total Absolute Neutrophils 0.02 K/uL Lymphocytes # (Manual) 0.08 K/uL Total Absolute Lymphocytes 0.08 K/uL Monocytes # (Manual) 0.01 K/uL Eosinophils # (Manual) 0.01 K/uL Basophils # (Manual) 0.01 K/uL Prothrombin Time 14.6 SECONDS Prothromb Time International Ratio 1.3 Sodium Level 139 mmol/L Potassium Level 3.0 mmol/L Chloride Level 101 mmol/L Carbon Dioxide Level 34 mmol/L Anion Gap 4.0 mmol/L Blood Urea Nitrogen 16 mg/dl Creatinine 0.88 mg/dl Est Creatinine Clear Calc Drug Dose 61.7 ml/min Estimated GFR () 74.5 Estimated GFR (Non- 64.3 BUN/Creatinine Ratio 18.0 Random Glucose 183 mg/dl Calcium Level 8.0 mg/dl Phosphorus Level 2.1 mg/dl Magnesium Level 1.8 mg/dl Total Bilirubin 0.9 mg/dl Aspartate Amino Transf (AST/SGOT) 5 U/L Alanine Aminotransferase (ALT/SGPT) 19 U/L Alkaline Phosphatase 88 U/L Total Protein 4.3 gm/dl Albumin 1.9 gm/dl Globulin 2.4 gm/dl Albumin/Globulin Ratio 0.8 Assessment & Plan Today is day 10 of her third cycle of chemotherapy for a high-grade non-Hodgkin lymphoma. Her course has been complicated all along by refractory cytopenias and delayed marrow recovery. As a result, we switched her chemo from DA-EPOCH-R to R-CHOP for this cycle. She is pancytopenic again, due to chemotherapy. In the absence of bleeding, I would only transfuse her platelets if she falls below 15K. I would also transfuse PRBCs to keep her hemoglobin >8. She received Neulasta so there is no need for additional GCSF. Otherwise, I would provide supportive care as needed. Her WBCs are up a bit from yesterday which hopefully portends a more rapid recovery of her counts this cycle. This would also be a positive sign that her disease is responding to treatment.
[2017-06-25] MEDS: ONDANSETRON INJ 2 MG/ML 2 ML VIAL IV PRN (15:55)
[2017-06-25 20:47] LABS: BASO ABS # 0.01 K/uL (0-0.2); COMPLETE YES; DOHLE BODIES 1+; HEMATOCRIT 27.6 % (37-47); LYMPH ABS # 0.07 K/uL (1.2-3.4); MEAN CELL VOLUME 88.7 fL (80-100); MEAN CORPUSCULAR HEMOGLOBIN 29.6 pg (25-34); MEAN CORPUSCULAR HGB CONC 33.3 g/dl (32-36); MEAN PLATELET VOLUME 8.6 fL (7.4-10.4); PLATELET COUNT 11 K/uL (130-400); RED BLOOD COUNT 3.11 M/uL (4.2-5.4); WHITE BLOOD COUNT 0.16 K/uL (4.8-10.8)
[2017-06-25] MEDS ORDERED: POTASSIUM PHOS 3 MMOL/1 ML INFUSION IV STA (21:22)
[2017-06-25] MEDS ORDERED: POTASSIUM PHOSPHATE INJ 21 MMOL in SODIUM CHLORIDE 0.9% 500ML 500 ML IV ONE (21:45)
[2017-06-26] VITALS (12 sets, daily range): BP systolic 111–168; BP diastolic 66–84; PULSE 81–94; TEMP 36.7–37.4; O2SAT 95–98
[2017-06-26] MEDS: CHECK FENTANYL PATCH PLACEMENT SCH ×4 (00:27→23:06)
[2017-06-26] MEDS: HYDROCODONE/ACETAMOPHEN 5/325MG TAB PO PRN ×3 (00:31→19:49)
[2017-06-26] MEDS: ONDANSETRON INJ 2 MG/ML 2 ML VIAL IV PRN (06:33)
[2017-06-26 07:10] LABS: HEMATOCRIT 27.3 % (37-47); MEAN CELL VOLUME 88.1 fL (80-100); MEAN CORPUSCULAR HEMOGLOBIN 29.7 pg (25-34); MEAN CORPUSCULAR HGB CONC 33.7 g/dl (32-36); MEAN PLATELET VOLUME 9.5 fL (7.4-10.4); PLATELET COUNT 17 K/uL (130-400)
[2017-06-26 07:18] LABS: BUN/CREATININE RATIO 14.5 (10-20); CALCIUM 7.9 mg/dl (8.5-10.1); CREATININE 0.92 mg/dl (0.60-1.20); MAGNESIUM 1.7 mg/dl (1.8-2.4); POTASSIUM 3.2 mmol/L (3.5-5.1)
[2017-06-26 07:21] LABS: ALB/GLOB RATIO 0.7 (0.9-2)
[2017-06-26 07:35] LABS: DOHLE BODIES 3+; TOXIC GRANULATION 3+; VACUOLIZATION 1+
[2017-06-26 07:36] LABS: COMPLETE YES; EOSINOPHIL % 2.9 %; LYMPH ABS # 0.11 K/uL (1.2-3.4); LYMPHOCYTE % 27.9 %; NEUTROPHILS % 54.5 %
[2017-06-26] MEDS: FENTANYL PATCH REMOVE & WASTE SCH (08:49)
[2017-06-26] MEDS: FENTANYL 25 MCG/HR TDSY TD SCH (08:51)
[2017-06-26] MEDS: DRONABINOL 2.5 MG CAP PO SCH (08:51)
--- NOTE | 2017-06-26 10:32 | Hematology/Oncology Prog Note ---
Hematology/Onc Progress Note Date of Service Jun 26, 2017. Diagnoses High-grade non-Hodgkin lymphoma Pancytopenia Medications Medications Administered Medications (Trade) Dose Ordered Sig/[place] Route Start Time Stop Time Status Last Admin Dose Admin Sodium Chloride 1,000 ml @ 999 mls/hr Q1H1M ONCE IV 06/24/17 16:04 06/24/17 17:04 DC 06/24/17 16:53 999 MLS/HR Oxycodone HCl (Roxicodone Immediate Rel Tab) 5 mg NOW STAT PO 06/24/17 16:07 06/24/17 16:08 DC 06/24/17 17:00 5 MG Magnesium Sulfate (Magnesium Sulfate) 2 gm NOW STAT IV 06/24/17 18:45 06/24/17 18:46 DC 06/24/17 18:56 2 GM Acetaminophen (Tylenol Tab) 650 mg Q4H PRN PO 06/24/17 19:15 07/24/17 19:14 06/25/17 07:49 650 MG Ondansetron HCl (Zofran Inj) 4 mg Q6H PRN IV 06/24/17 19:15 07/24/17 19:14 06/26/17 06:33 4 MG Acyclovir (Zovirax Cap) 200 mg TID PO 06/24/17 21:00 07/24/17 20:59 06/25/17 21:06 200 MG Allopurinol (Zyloprim Tab) 200 mg DAILY PO 06/25/17 09:00 07/25/17 08:59 06/25/17 09:44 200 MG Dicyclomine HCl (Bentyl Tab) 20 mg QAM PO 06/25/17 09:00 07/25/17 08:59 06/25/17 09:43 20 MG Docusate Sodium (coLACE CAP) 100 mg BID PO 06/24/17 21:00 07/24/17 20:59 06/25/17 11:16 100 MG Dronabinol (Marinol Cap) 2.5 mg QAM PO 06/25/17 09:00 07/25/17 08:59 06/26/17 08:51 2.5 MG Fentanyl (Duragesic Patch) 25 mcg Q72H TD 06/26/17 09:00 07/10/17 08:59 06/26/17 08:51 25 MCG Fluconazole (Diflucan Tab) 100 mg QAM PO 06/25/17 09:00 07/25/17 08:59 06/25/17 09:43 100 MG Fluticasone Propionate (Flonase Nasal [place]) 2 sprays DAILY VIGNESH 06/25/17 09:00 07/25/17 08:59 06/25/17 07:49 2 SPRAYS Acetaminophen/ Hydrocodone Bitart ([place] 5/325 Tab) 1 tab Q4 PRN PO 06/24/17 19:15 07/08/17 19:14 06/26/17 08:51 1 TAB Multivitamins/ Minerals (Multivitamin W/ Minerals Tab) 1 tab DAILY PO 06/25/17 09:00 07/25/17 08:59 06/25/17 11:16 1 TAB Oxybutynin Chloride (Ditropan-Xl Tab) 10 mg QAM PO 06/25/17 09:00 07/25/17 08:59 06/25/17 09:43 10 MG Pantoprazole Sodium (Protonix Tab) 40 mg DAILY PO 06/25/17 09:00 07/25/17 08:59 06/25/17 11:16 40 MG Miscellaneous (Fentanyl Patch Remove & Waste) 1 ea Q72H N/A 06/26/17 08:59 07/26/17 08:58 06/26/17 08:49 1 EA Miscellaneous Information (Check Fentanyl Patch Placement) 1 ea QS N/A 06/25/17 00:00 07/25/17 00:00 06/26/17 08:49 1 EA Magnesium Oxide (Mag-Ox Tab) 400 mg ONE STAT PO 06/24/17 19:58 06/24/17 20:34 DC 06/24/17 23:58 400 MG Filgrastim (Neupogen Sq) 480 mcg NOW ONCE SC 06/25/17 11:30 06/25/17 11:31 DC 06/25/17 11:23 480 MCG Lidocaine (Lidoderm Patch 5%) 1 patch 1050 ONCE TD 06/25/17 10:50 06/25/17 11:03 DC 06/25/17 12:00 1 PATCH Miscellaneous (Remove Lidoderm Patch) 1 ea DAILY@21 N/A 06/25/17 21:00 07/25/17 20:59 06/25/17 21:06 1 EA Heparin Sodium (Porcine) (Heparin 100 Unit/ml 5ml Flush) 10 ml STK-MED ONCE .ROUTE 06/25/17 13:36 06/25/17 13:37 DC 06/25/17 17:47 10 ML Potassium Phosphate 21 mmol/ Sodium Chloride 507 ml @ 88 mls/hr NOW ONCE IV 06/25/17 21:45 06/26/17 03:30 DC 06/25/17 22:20 88 MLS/HR Subjective Ms. Perez feels a bit better today. Her energy is up slightly. She remains afebrile. She has no bleeding or bruising. Review of Systems: Constitutional: + weakness, + fatigue, No fever, No chills ENT: No unusual epistaxis Respiratory: No cough, No shortness of breath Cardiovascular: No chest pain Abdomen: No pain, No nausea, No GI bleeding Musculoskeletal: No joint pain, No muscle pain Female : No dysuria, No hematuria Heme: No abnormal bleeding/bruising Vital Signs Vital Signs Past 12 Hours Date Time Temp Pulse Resp B/P (MAP) Pulse Ox O2 Delivery O2 Flow Rate FiO2 06/26/17 08:23 37.1 89 20 158/66 (96) 98 Room Air 06/26/17 08:00 Room Air 06/26/17 04:46 37.1 87 18 155/77 (103) 97 06/26/17 01:58 37.0 83 18 147/79 98 06/26/17 01:29 37.2 91 16 142/77 97 06/26/17 01:04 37.4 89 18 143/80 97 06/26/17 00:48 37.3 87 18 153/84 95 06/26/17 00:38 37.4 93 18 168/77 (107) 98 06/26/17 00:24 37.1 94 20 161/72 96 06/26/17 00:10 36.9 91 20 159/74 97 Physical Exam Constitutional: General Apperance: obese Level of Distress: NAD, chronically ill Psychiatric: Mental Status: active & alert Orientation: oriented except where noted ENMT: pharynx normal Lungs: Auscuitation: CTA except as noted Cardiovascular: Heart Auscultation: RRR Abdomen: Inspection & Palpation: soft, no tenderness, guarding & rebound Extremities: no edema Laboratory Last 24 Hours Test 06/25/17 19:02 06/26/17 06:16 White Blood Count 0.16 K/uL 0.40 K/uL Red Blood Count 3.11 M/uL 3.10 M/uL Hemoglobin 9.2 g/dL 9.2 g/dL Hematocrit 27.6 % 27.3 % Mean Corpuscular Volume 88.7 fL 88.1 fL Mean Corpuscular Hemoglobin 29.6 pg 29.7 pg Mean Corpuscular Hemoglobin Concent 33.3 g/dl 33.7 g/dl Platelet Count 11 K/uL 17 K/uL Mean Platelet Volume 8.6 fL 9.5 fL RDW Standard Deviation 51.4 fL 50.2 fL RDW Coefficient of Variation 16.0 % 15.7 % Neutrophils % (Manual) 32.0 % 54.5 % Lymphocytes % (Manual) 42.0 % 27.9 % Monocytes % (Manual) 16.0 % 14.7 % Eosinophils % (Manual) 6.0 % 2.9 % Basophils % (Manual) 4.0 % Neutrophils # (Manual) 0.05 K/uL 0.22 K/uL Total Absolute Neutrophils 0.05 K/uL 0.22 K/uL Lymphocytes # (Manual) 0.07 K/uL 0.11 K/uL Total Absolute Lymphocytes 0.07 K/uL 0.11 K/uL Monocytes # (Manual) 0.03 K/uL 0.06 K/uL Eosinophils # (Manual) 0.01 K/uL 0.01 K/uL Basophils # (Manual) 0.01 K/uL Dohle Bodies 1+ 3+ Toxic Granulation 3+ Toxic Vacuolation 1+ Sodium Level 139 mmol/L Potassium Level 3.2 mmol/L Chloride Level 101 mmol/L Carbon Dioxide Level 32 mmol/L Anion Gap 6.0 mmol/L Blood Urea Nitrogen 13 mg/dl Creatinine 0.92 mg/dl Est Creatinine Clear Calc Drug Dose 59.4 ml/min Estimated GFR () 70.6 Estimated GFR (Non- 60.9 BUN/Creatinine Ratio 14.5 Random Glucose 137 mg/dl Calcium Level 7.9 mg/dl Magnesium Level 1.7 mg/dl Total Bilirubin 0.8 mg/dl Aspartate Amino Transf (AST/SGOT) 8 U/L Alanine Aminotransferase (ALT/SGPT) 16 U/L Alkaline Phosphatase 87 U/L Total Protein 4.6 gm/dl Albumin 1.9 gm/dl Globulin 2.7 gm/dl Albumin/Globulin Ratio 0.7 Assessment & Plan Ms. Perez's counts are rising, though slowly. She has no bleeding, bruising, or petechiae. I would continue with supportive care for now. Please continue prophylactic antimicrobials as currently ordered.
[2017-06-26] MEDS: ACYCLOVIR 200 MG CAP PO SCH ×3 (11:16→19:48)
[2017-06-26] MEDS: CEROVITE ADV FORMULA TAB PO SCH (11:16)
[2017-06-26] MEDS: OXYBUTYNIN CHLORIDE 5 MG TABCR PO SCH (11:16)
[2017-06-26] MEDS: DICYCLOMINE HCL 20 MG TAB PO SCH (11:16)
[2017-06-26] MEDS: ALLOPURINOL 100 MG TAB PO SCH (11:16)
[2017-06-26] MEDS: DOCUSATE SODIUM 100 MG CAP PO SCH ×2 (11:16→19:48)
[2017-06-26] MEDS: FLUCONAZOLE 100 MG TAB PO SCH (11:16)
[2017-06-26] MEDS: FLUTICASONE PROPIONATE NA SPR 16 GM BTL NAE SCH (11:17)
[2017-06-26] MEDS: PANTOprazole SOD 40 MG TAB PO SCH (11:17)
[2017-06-26] MEDS: LIDODERM (LIDOCAINE) PATCH 5% TD SCH (11:17)
[2017-06-26 13:08] LABS: URINE APPEARANCE TURBID (CLEAR); URINE BILIRUBIN NEG (NEG); URINE COLOR YELLOW; URINE EPITHELIAL CELL AUTO >30 /lpf (0-5); URINE NITRITE POS (NEG); URINE SPECIFIC GRAVITY 1.018 (1.000-1.030); UROBILINOGEN NEG (NEG); ZZUR CULT IF INDIC CLEAN CATCH YES
[2017-06-26 13:10] LABS: MANUAL MICROSCOPIC REQUIRED? NO; REVIEW REQ? NO
--- NOTE | 2017-06-26 14:21 | Progress Note ---
Subjective Date of Service: Jun 26, 2017. Subjective Pt evaluation today including: conversation w/ patient, conversation w/ family , physical exam, chart review, lab review, review of studies, conversation w/ information systems consultant, review of inpatient medication list Resting comfortably in bed No fevers Reports always having chills No abd pain, chest pain or distress noted Problem List Medical Problems: (1) Hypokalemia Status: Acute (2) Hypomagnesemia Status: Acute (3) Neutropenia Status: Acute (4) Pancytopenia Status: Acute (5) Pancytopenia Status: Acute (6) Sepsis Status: Acute (7) UTI (urinary tract infection) Status: Acute Review of Systems Constitutional: + chills, No fever, No sweats, No weight loss, No weakness, No fatigue Eyes: No worsening of vision, No eye pain, No redness, No discharge Respiratory: No cough, No sputum, No wheezing, No shortness of breath, No dyspnea on exertion Cardiac: No chest pain, No orthopnea, No PND, No edema Abdomen: No pain, No nausea, No vomiting, No diarrhea Musculoskeletal: No joint pain, No muscle pain, No swelling, No calf pain Female : No dysuria, No urinary frequency, No hematuria Neurologic: No memory loss, No paralysis, No weakness, No numbness/tingling Psychiatric: No depression symptoms, No anhedonism, No anxiety, No insomnia Endo: No fatigue, No excessive thirst, No excessive urination Skin: No rash, No itch Objective Vital Signs Date Time Temp Pulse Resp B/P (MAP) Pulse Ox O2 Delivery O2 Flow Rate FiO2 06/26/17 12:00 Room Air 06/26/17 11:39 37.0 81 20 111/71 (84) 97 Nasal Cannula 2.0 06/26/17 08:23 37.1 89 20 158/66 (96) 98 Room Air 06/26/17 08:00 Room Air 06/26/17 04:46 37.1 87 18 155/77 (103) 97 06/26/17 01:58 37.0 83 18 147/79 98 06/26/17 01:29 37.2 91 16 142/77 97 06/26/17 01:04 37.4 89 18 143/80 97 06/26/17 00:48 37.3 87 18 153/84 95 06/26/17 00:38 37.4 93 18 168/77 (107) 98 06/26/17 00:24 37.1 94 20 161/72 96 06/26/17 00:10 36.9 91 20 159/74 97 06/25/17 19:15 37.3 85 18 151/70 (97) 98 Nasal Cannula 2.0 06/25/17 17:00 37.0 89 16 130/79 98 2.0 06/25/17 16:30 36.8 89 16 135/75 98 2.0 06/25/17 16:15 37.0 90 16 138/79 98 2.0 06/25/17 16:00 Room Air 06/25/17 16:00 36.9 88 16 145/86 98 2.0 06/25/17 15:45 36.9 87 16 157/85 97 2.0 06/25/17 15:35 39.9 89 16 164/89 98 Physical Exam General Appearance: WD/WN, no apparent distress, + obese Eyes: normal inspection, PERRL, EOMI, sclerae normal Neck: supple, no adenopathy, thyroid normal, no JVD Respiratory/Chest: chest non-tender, lungs clear, normal breath sounds, no respiratory distress Cardiovascular: regular rate, rhythm, no edema, no gallop, no JVD Abdomen: normal bowel sounds, non tender, soft, no organomegaly Extremities: normal range of motion, non-tender, normal inspection, no pedal edema Neurologic/Psychiatric: no motor/sensory deficits, alert, normal mood/affect, oriented x 3 Laboratory Results Last 24 Hours Test 06/25/17 19:02 06/26/17 06:16 06/26/17 12:10 White Blood Count 0.16 K/uL 0.40 K/uL Red Blood Count 3.11 M/uL 3.10 M/uL Hemoglobin 9.2 g/dL 9.2 g/dL Hematocrit 27.6 % 27.3 % Mean Corpuscular Volume 88.7 fL 88.1 fL Mean Corpuscular Hemoglobin 29.6 pg 29.7 pg Mean Corpuscular Hemoglobin Concent 33.3 g/dl 33.7 g/dl Platelet Count 11 K/uL 17 K/uL Mean Platelet Volume 8.6 fL 9.5 fL RDW Standard Deviation 51.4 fL 50.2 fL RDW Coefficient of Variation 16.0 % 15.7 % Neutrophils % (Manual) 32.0 % 54.5 % Lymphocytes % (Manual) 42.0 % 27.9 % Monocytes % (Manual) 16.0 % 14.7 % Eosinophils % (Manual) 6.0 % 2.9 % Basophils % (Manual) 4.0 % Neutrophils # (Manual) 0.05 K/uL 0.22 K/uL Total Absolute Neutrophils 0.05 K/uL 0.22 K/uL Lymphocytes # (Manual) 0.07 K/uL 0.11 K/uL Total Absolute Lymphocytes 0.07 K/uL 0.11 K/uL Monocytes # (Manual) 0.03 K/uL 0.06 K/uL Eosinophils # (Manual) 0.01 K/uL 0.01 K/uL Basophils # (Manual) 0.01 K/uL Dohle Bodies 1+ 3+ Toxic Granulation 3+ Toxic Vacuolation 1+ Sodium Level 139 mmol/L Potassium Level 3.2 mmol/L Chloride Level 101 mmol/L Carbon Dioxide Level 32 mmol/L Anion Gap 6.0 mmol/L Blood Urea Nitrogen 13 mg/dl Creatinine 0.92 mg/dl Est Creatinine Clear Calc Drug Dose 59.4 ml/min Estimated GFR () 70.6 Estimated GFR (Non- 60.9 BUN/Creatinine Ratio 14.5 Random Glucose 137 mg/dl Calcium Level 7.9 mg/dl Magnesium Level 1.7 mg/dl Total Bilirubin 0.8 mg/dl Aspartate Amino Transf (AST/SGOT) 8 U/L Alanine Aminotransferase (ALT/SGPT) 16 U/L Alkaline Phosphatase 87 U/L Total Protein 4.6 gm/dl Albumin 1.9 gm/dl Globulin 2.7 gm/dl Albumin/Globulin Ratio 0.7 Urine Color YELLOW Urine Appearance TURBID Urine pH 6.0 Urine Specific [place] 1.018 Urine Protein 2+ Urine Glucose (UA) NEG Urine Ketones NEG Urine Occult Blood 2+ Urine Nitrite POS Urine Bilirubin NEG Urine Urobilinogen NEG Urine Leukocyte Esterase LARGE Urine WBC (Auto) >30 /hpf Urine RBC (Auto) 10-30 /hpf Urine Hyaline Casts (Auto) 1-5 /lpf Urine Epithelial Cells (Auto) >30 /lpf Urine Bacteria (Auto) 4+ Assessment and Plan ASSESSMENT: 1. Severe thrombocytopenia and neutropenia secondary to chemotherapy. 2. Non-Hodgkin lymphoma with positive C-MYC rearrangement, currently on chemotherapy. 3. Hypotension earlier today at home with chills, resolved in ED. 4. Hypertension, currently blood pressure meds on hold. 5. History of deep venous thrombosis, status post inferior vena cava filter. 6. Morbid obesity. 7. Diabetes mellitus, on oral hypoglycemic. PLAN: Admitted to telemetry. Transfusion of 2 units single donor platelets on 06/24, Plts improved from 11 --> 19 overnight Will not transfuse plts unless less than 15 Transfusion of 2 units PRBCs on 06/25 Hg 6.8 -->9.2 Cont Neutropenic precaution, WBC continuing to rise, neupogen x 1 given 06/25 Continue the patient on fluconazole/Bactrim DS/oral vancomycin/acyclovir. If the patient shows any signs of fever or chills or hypotension, then imipenem should be initiated immediately. The patient does have ALLERGY TO CEPHALOSPORIN AND PENICILLIN but tolerated imipenem in the past. Pt is full code.
[2017-06-26] MEDS ORDERED: POTASSIUM CHLORIDE 10 MEQ TABCR PO STA (15:21)
[2017-06-26] MEDS ORDERED: ERTAPENEM IV 1 GM in SODIUM CHLOR 0.9% AD-VAN 50ML IV ONE (21:00)
[2017-06-27] VITALS (7 sets, daily range): BP systolic 113–160; BP diastolic 59–77; PULSE 72–86; TEMP 36.5–37.1; O2SAT 93–98
[2017-06-27] MEDS: HYDROCODONE/ACETAMOPHEN 5/325MG TAB PO PRN ×2 (03:36→17:38)
[2017-06-27 05:55] LABS: HEMATOCRIT 27.2 % (37-47); MEAN CELL VOLUME 89.5 fL (80-100); MEAN CORPUSCULAR HEMOGLOBIN 30.3 pg (25-34); MEAN CORPUSCULAR HGB CONC 33.8 g/dl (32-36); PLATELET COUNT 13 K/uL (130-400); RED BLOOD COUNT 3.04 M/uL (4.2-5.4); WHITE BLOOD COUNT 1.34 K/uL (4.8-10.8)
[2017-06-27 06:10] LABS: CALCIUM 8.1 mg/dl (8.5-10.1); CREATININE 0.86 mg/dl (0.60-1.20); MAGNESIUM 1.7 mg/dl (1.8-2.4); POTASSIUM 3.3 mmol/L (3.5-5.1)
[2017-06-27 06:13] LABS: ALB/GLOB RATIO 0.7 (0.9-2)
[2017-06-27 06:36] LABS: DOHLE BODIES 1+; GIANT PLATELETS 2+; TOXIC GRANULATION 1+; VACUOLIZATION 1+
[2017-06-27 06:37] LABS: COMPLETE YES; EOSINOPHIL % 3.5 %; LYMPHOCYTE % 14.8 %; NEUTROPHILS % 68.7 %
[2017-06-27] MEDS: CHECK FENTANYL PATCH PLACEMENT SCH ×3 (08:00→23:10)
--- NOTE | 2017-06-27 08:54 | Hematology/Oncology Prog Note ---
Hematology/Onc Progress Note Date of Service Jun 27, 2017. Diagnoses Non-Hodgkin's lymphoma Neutropenic fever. Subjective 77-year-old patient of Dr. Vu's admitted for neutropenic fever. Status post R CHOP chemotherapy cycle #3. Urine positive for Escherichia coli currently on gram-negative coverage. Clinically feeling somewhat better tolerating her diet, moving bowels regularly. She reports no nausea or diarrhea. WBCs in excess of 1000. Platelets remain tenuous at 13,000. No external evidence of bleeding. Review of Systems: Constitutional: + see HPI Eyes: No see HPI, No worsening of vision, No eye pain, No redness, No discharge, No diplopia, No problem reported ENT: No see HPI, No hearing loss, No unusual epistaxis, No nasal symptoms, No sore throat, No tinnitus, No dental problems, No trouble swallowing, No problem reported Respiratory: No see HPI, No cough, No sputum, No wheezing, No shortness of breath, No dyspnea on exertion, No dyspnea at rest, No hemoptysis, No problem reported Cardiovascular: No see HPI, No chest pain, No orthopnea, No PND, No edema, No claudication, No palpitations, No problem reported Abdomen: No see HPI, No pain, No nausea, No vomiting, No diarrhea, No constipation, No GI bleeding, No problem reported Skin: No see HPI, No rash, No itch, No new/changing skin lesions, No color change, No bleeding, No problem reported Vital Signs Vital Signs Past 12 Hours Date Time Temp Pulse Resp B/P (MAP) Pulse Ox O2 Delivery O2 Flow Rate FiO2 06/27/17 07:20 36.9 82 20 131/59 (83) 93 Room Air 06/27/17 04:24 36.7 86 16 160/74 (102) 97 2.0 06/27/17 04:00 Nasal Cannula 2.0 06/27/17 00:01 36.5 78 18 130/75 (93) 97 2.0 06/26/17 23:59 Nasal Cannula 2.0 Physical Exam Constitutional: General Apperance: obese Level of Distress: NAD, chronically ill Psychiatric: Mental Status: active & alert Orientation: oriented except where noted Head: normocephalic, atraumatic ENMT: normal ENT inspection, pharynx normal Neck: supple Lungs: Auscuitation: CTA except as noted Cardiovascular: Heart Auscultation: RRR Abdomen: Inspection & Palpation: soft, no tenderness, guarding & rebound Musculoskeletal: normal Extremities: no cyanosis, no edema Grossly intact Assessment & Plan 1. Neutropenic fever. 2. Urinary tract infection 3. Non-Hodgkin's lymphoma. 77-year-old female patient with recent diagnosis of non-Hodgkin's lymphoma status post cycle number 3R CH[facility] chemotherapy admitted with neutropenic fever. Patient continues gram-negative coverage, urine cultures done on admission identify Escherichia coli as the offending pathogen. Had received transfusional support particularly platelets. Resolution 13,000 and will hold off on transfusion unless bleeding ensues. Continue regular diet and supportive care. We will most likely discontinue neutropenic precaution in the next 24 hours. Thank you for assisting us in the care of this very pleasant patient.
[2017-06-27] MEDS ORDERED: SULFAMETHOXAZOLE/TRIMETHOPRIM DS 800/160MG TAB PO SCH (09:00)
[2017-06-27] MEDS: FLUTICASONE PROPIONATE NA SPR 16 GM BTL NAE SCH (09:05)
[2017-06-27] MEDS: DICYCLOMINE HCL 20 MG TAB PO SCH (09:06)
[2017-06-27] MEDS: DOCUSATE SODIUM 100 MG CAP PO SCH ×2 (09:06→21:26)
[2017-06-27] MEDS: OXYBUTYNIN CHLORIDE 5 MG TABCR PO SCH (09:07)
[2017-06-27] MEDS: FLUCONAZOLE 100 MG TAB PO SCH (09:07)
[2017-06-27] MEDS: PANTOprazole SOD 40 MG TAB PO SCH (09:08)
[2017-06-27] MEDS: CEROVITE ADV FORMULA TAB PO SCH (09:08)
[2017-06-27] MEDS: ACYCLOVIR 200 MG CAP PO SCH ×3 (09:09→21:26)
[2017-06-27] MEDS: LIDODERM (LIDOCAINE) PATCH 5% TD SCH (09:09)
[2017-06-27] MEDS: ALLOPURINOL 100 MG TAB PO SCH (09:10)
[2017-06-27] MEDS: DRONABINOL 2.5 MG CAP PO SCH (10:15)
--- NOTE | 2017-06-27 12:05 | Clinical Documentation Query ---
QUERY 1 OF [address] NILESH SHER, In your clinical opinion is this patient being managed for: ( x ) Chemotherapy induced pancytopenia ( ) Other explanation of clinical findings (Please Explain) ( ) Unable to determine (Please Define) ( ) Need to Discuss ( ) Not Agree The medical record reflects the following clinical findings, treatment, and risk factors. Clinical Indicators: 77 yo female presenting with persistent weakness. Recently diagnosed with advanced B cell lymphoma. WBC 0.10, RBC 2.75, Hgb 8.2, Hct 23.9, plts 6. Pt has been receiving chemotherapy. H/P indicates Severe thrombocytopenia and neutropenia secondary to chemotherapy. Treatment: hem/onc consult, 2U PRBC, 3 U plts, daily CBC's Risk Factors: lymphoma with chemotherapy treatment QUERY 2 OF 3 In your clinical opinion is this patient being managed for: ( x ) severe protein-calorie malnutrition ( ) Other explanation of clinical findings (Please Explain) ( ) Unable to determine (Please Define) ( ) Need to Discuss ( ) Not Agree The medical record reflects the following clinical findings, treatment, and risk factors. Clinical Indicators:Dietary consult indicates pt with <50% estimated energy requirements for > 5 days and wt loss of 7% in 2 months Treatment: dietary consult, daily wt's, I/O's, continue marinol, provide food preferences Risk Factors: lymphoma, nausea Severe Malnutrition Criteria: (2 criteria needed) Energy intake: <50% of estimated energy requirement for > 5 days Wt loss: 1-2% in 1 wk, 5% in 1 month, or 7.5% in 3 months Body fat: moderate loss of SQ fat from the orbits, triceps or fat overlying the ribs Muscle mass: moderate muscle wasting at the temples, clavicles, shoulders, interosseous spaces, scapula, thigh, calf Fluid accumulation: moderate to severe localized or generalized edema of the extremities, vulva, scrotum-wt loss may be masked by edema [employer]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 Clinical Indicators: UA cx with E coli Treatment:IV ertapenem, IV fluids Risk Factors: gender, lymphoma, DM, morbid obesity Please clarify and document your clinical opinion in the progress notes and discharge summary. Terms such as "probable", "suspected", "likely", "questionable", "possible", or "still to be ruled out" are acceptable. IF IN AGREEMENT, YOU MUST DOCUMENT ABOVE DIAGNOSTIC STATEMENT IN DAILY PROGRESS NOTES AND DISCHARGE SUMMARY. This document is not part of the patient's record. Thank You, Lucila Ryan, RAMIRO [phone]
--- NOTE | 2017-06-27 16:13 | Medical Consult ---
Consultation Date of Consultation: Jun 27, 2017. Attending Physician: Gaby Peres MD Reason for Consultation: Neutropenia, urine cx History of Present Illness Patient is a 77 yo female who presented to the ED with complaints of weakness. The patient recently has been receiving chemotherapy for advanced B Cell Lymphoma for the past 2 months. She states that she has had many chemotherapy related symptoms recently, but she became very weak after her discharge from [facility]. She states that she does also have history of many urinary tract infections in the past, and she does have a stent in place of the left ureter due to longstanding history of infection, stones, etc. Upon current admission, the patient has been pancytopenic with neutropenia. Urine culture is growing E. Coli which is MDR. She is currently on IV Ertapenem and is tolerating that well. CXR showed right mid lung and bibasilar atelectasis without acute disease. Past Medical/Surgical History Medical Problems: (1) Hypokalemia Status: Acute (2) Hypomagnesemia Status: Acute (3) Neutropenia Status: Acute (4) Pancytopenia Status: Acute (5) Pancytopenia Status: Acute (6) Sepsis Status: Acute (7) UTI (urinary tract infection) Status: Acute Medical Problems: (1) E-coli UTI (2) Leukocytosis (3) Neutropenia (4) Neutropenic fever (5) Weakness Family History No pertinent family history Noncontributory Social History Smoking Status: Never Smoker Drug Use: none Marital Status: Occupation Status: retired Allergies Coded Allergies: Cephalosporins (Unverified Allergy, Intermediate, BREATHING PROBLEMS, 06/24) Ciprofloxacin (Verified Allergy, Intermediate, RASH, 06/21/17) Phlebitis Penicillins (Verified Allergy, Mild, HIVES, 06/21/17) Home Medications Reported Home Medications Medications Dose Route/Sig Max Daily Dose Days Date Category Dose Instructions Cozaar (Losartan Potassium) 100 Mg Tab 100 Mg PO DAILY 06/24/17 Reported Dulcolax (Bisacodyl) 10 Mg Sup 1 Supp DE UD PRN 06/24/17 Reported Compazine Supp (Prochlorperazine) 25 Mg Supp 25 Mg DE Q6H PRN 06/24/17 Reported Oxycodone HCl 5 Mg Tab 5-10 Mg PO Q2H PRN 06/24/17 Reported NEEDED FOR MODERATE TO SEVERE PAIN. Ditropan Xl (Oxybutynin Chloride) 10 Mg Tab 10 Mg PO QAM 06/24/17 Reported Mvi With Minerals (Multivitamins/Minerals) Tab 1 Tab PO DAILY 06/24/17 Reported Fluconazole 100 Mg Tab 100 Mg PO QAM 06/24/17 Reported Milk Of Magnesia (Magnesium Hydroxide) 30 Ml Susp 30 Ml PO DIRECTED 06/21/17 Reported Tums (Calcium Carbonate) 500 Mg Chew 500 Mg PO Q4 PRN 06/21/17 Reported Lioresal (Baclofen) 10 Mg Tab 10 Mg PO TID PRN 06/21/17 Reported Tylenol (Acetaminophen) 500 Mg Tab 500 Mg PO Q4 PRN 06/21/17 Reported Duragesic (Fentanyl) 25 Mcg/Hr Dis 25 Mcg TOP Q72H 06/21/17 Reported Protonix (Pantoprazole Sodium) 40 Mg Tab 40 Mg PO DAILY 06/21/17 Reported Docusate Sodium 100 Mg Cap 1 Cap PO BID 15 06/21/17 Reported Zovirax (Acyclovir) 200 Mg Cap 200 Mg PO TID 06/06/17 Rx Bactrim Ds 800MG/160MG (Trimethoprim/Sulfamethoxazole) Tab 1 Tab PO UD 06/06/17 Rx one tablet tuesday and Ventolin Hfa (Albuterol) 200 Puffs/51034 Mcg Aers 2 Puffs INH QID PRN 05/30/17 Reported Senna S (Sennosides-Docusate Sodium) 1 Tab Tab 1 Tabs PO DAILY PRN 05/30/17 Reported Zofran (Ondansetron HCl) 4 Mg Tab 4 Mg PO Q6 PRN 05/30/17 Reported Meclizine Hcl 25 Mg Tab 25 Mg PO TID PRN 05/30/17 Reported [place] 5MG/325MG (Acetaminophen/Hydrocodone Bitart) Tab 1 Tablet PO Q4 PRN 05/30/17 Reported PRN PAIN Flonase Allergy Relief (Fluticasone Propionate (Nasal)) 50 Mcg/Act Spr 2 Sprays VIGNESH DAILY 05/30/17 Reported Bentyl (Dicyclomine Hcl) 20 Mg Tab 20 Mg PO QAM 05/30/17 Reported Marinol (Dronabinol) 2.5 Mg Cap 2.5 Mg PO QAM 05/30/17 Reported Vancomycin (Vancomycin HCl) 125 Mg Cap 125 Mg PO QID 05/30/17 Reported Januvia (Sitagliptin Phosphate) 100 Mg Tab 100 Mg PO QAM 05/30/17 Reported Lasix (Furosemide) 20 Mg Tab 20 Mg PO QAM 05/30/17 Reported Zyloprim (Allopurinol) 100 Mg Tab 200 Mg PO DAILY 05/30/17 Reported TWO 100 MG TABLETS Current Inpatient Medications Current Inpatient Medications Medications (Trade) Dose Ordered Sig/[place] Route Start Time Stop Time Status Last Admin Dose Admin Acetaminophen (Tylenol Tab) 650 mg Q4H PRN PO 06/24/17 19:15 07/24/17 19:14 06/25/17 07:49 650 MG Al Hydrox/Mg Hydrox/Simethicone (Maalox Max Susp) 15 ml Q4H PRN PO 06/24/17 19:15 07/24/17 19:14 Magnesium Hydroxide (Milk Of Magnesia Susp) 30 ml Q6H PRN PO 06/24/17 19:15 07/24/17 19:14 Polyethylene (Miralax Powder Packet) 17 gm DAILY PRN PO 06/24/17 19:15 07/24/17 19:14 Ondansetron HCl (Zofran Inj) 4 mg Q6H PRN IV 06/24/17 19:15 07/24/17 19:14 06/26/17 06:33 4 MG Acyclovir (Zovirax Cap) 200 mg TID PO 06/24/17 21:00 07/24/17 20:59 06/27/17 14:00 200 MG Albuterol (Ventolin Hfa Inhaler) 2 puffs QID PRN INH 06/24/17 19:15 07/24/17 19:14 Allopurinol (Zyloprim Tab) 200 mg DAILY PO 06/25/17 09:00 07/25/17 08:59 06/27/17 09:10 200 MG Baclofen (Lioresal Tab) 10 mg TID PRN PO 06/24/17 19:15 07/24/17 19:14 06/27/17 09:10 10 MG Bisacodyl (Dulcolax Supp) 10 mg DAILY PRN DE 06/24/17 19:15 07/24/17 19:14 Calcium Carbonate (Tums Chew Tab) 500 mg Q4H PRN PO 06/24/17 19:15 07/24/17 19:14 Dicyclomine HCl (Bentyl Tab) 20 mg QAM PO 06/25/17 09:00 07/25/17 08:59 06/27/17 09:06 20 MG Docusate Sodium (coLACE CAP) 100 mg BID PO 06/24/17 21:00 07/24/17 20:59 06/27/17 09:06 100 MG Dronabinol (Marinol Cap) 2.5 mg QAM PO 06/25/17 09:00 07/25/17 08:59 06/27/17 10:15 2.5 MG Fentanyl (Duragesic Patch) 25 mcg Q72H TD 06/26/17 09:00 07/10/17 08:59 06/26/17 08:51 25 MCG Fluconazole (Diflucan Tab) 100 mg QAM PO 06/25/17 09:00 07/25/17 08:59 06/27/17 09:07 100 MG Fluticasone Propionate (Flonase Nasal [place]) 2 sprays DAILY VIGNESH 06/25/17 09:00 07/25/17 08:59 06/27/17 09:05 2 SPRAYS Acetaminophen/ Hydrocodone Bitart ([place] 5/325 Tab) 1 tab Q4 PRN PO 06/24/17 19:15 07/08/17 19:14 06/27/17 03:36 1 TAB Meclizine HCl (Antivert Tab) 25 mg TID PRN PO 06/24/17 19:15 07/24/17 19:14 Multivitamins/ Minerals (Multivitamin W/ Minerals Tab) 1 tab DAILY PO 06/25/17 09:00 07/25/17 08:59 06/27/17 09:08 1 TAB Ondansetron HCl (Zofran Tab) 4 mg Q6 PRN PO 06/24/17 19:15 07/24/17 19:14 Oxybutynin Chloride (Ditropan-Xl Tab) 10 mg QAM PO 06/25/17 09:00 07/25/17 08:59 06/27/17 09:07 10 MG Pantoprazole Sodium (Protonix Tab) 40 mg DAILY PO 06/25/17 09:00 07/25/17 08:59 06/27/17 09:08 40 MG Prochlorperazine (Compazine Supp) 25 mg Q6H PRN [place] 06/24/17 19:15 07/24/17 19:14 Senna/Docusate Sodium (Senokot S Tab) 1 tab DAILY PRN PO 06/24/17 19:15 07/24/17 19:14 Miscellaneous (Fentanyl Patch Remove & Waste) 1 ea Q72H N/A 06/26/17 08:59 07/26/17 08:58 06/26/17 08:49 1 EA Miscellaneous Information (Check Fentanyl Patch Placement) 1 ea QS N/A 06/25/17 00:00 07/25/17 00:00 06/27/17 08:00 1 EA Lidocaine (Lidoderm Patch 5%) 1 patch QAM TD 06/26/17 09:00 07/26/17 08:59 06/27/17 09:09 1 PATCH Miscellaneous (Remove Lidoderm Patch) 1 ea DAILY@21 N/A 06/25/17 21:00 07/25/17 20:59 06/26/17 19:48 1 EA Heparin Sodium (Porcine) (Heparin 10 Unit/ ml 5 ml Flush) 5 ml PRN PRN FLUSH 06/26/17 08:30 07/26/17 08:29 06/26/17 16:12 10 ML Ertapenem 1 gm/ Sodium Chloride 50 ml @ 100 mls/hr DAILY@2100 IV 06/27/17 21:00 07/07/17 20:59 Review of Systems Constitutional: + weakness, + fatigue, No fever, No chills Eyes: No worsening of vision ENT: No hearing loss Respiratory: No cough, No shortness of breath Cardiovascular: No chest pain Abdomen: + problem reported (loose stools on and off), No pain, No nausea, No vomiting Musculoskeletal: + swelling (b/l LE), No joint pain Genitourinary - Female: + urinary frequency, No dysuria, No urinary urgency Integumentary: No rash, No itch Physical Exam Date Time Temp Pulse Resp B/P (MAP) Pulse Ox O2 Delivery O2 Flow Rate FiO2 06/27/17 15:15 37.1 75 17 138/77 (97) 94 Room Air 06/27/17 12:00 Nasal Cannula 2.0 06/27/17 11:25 36.9 81 20 113/70 (84) 94 Room Air 06/27/17 08:00 Nasal Cannula 2.0 06/27/17 07:20 36.9 82 20 131/59 (83) 93 Room Air 06/27/17 04:24 36.7 86 16 160/74 (102) 97 2.0 06/27/17 04:00 Nasal Cannula 2.0 06/27/17 00:01 36.5 78 18 130/75 (93) 97 2.0 06/26/17 23:59 Nasal Cannula 2.0 06/26/17 20:00 Nasal Cannula 2.0 06/26/17 19:00 37.0 84 16 130/76 (94) 97 Nasal Cannula 2.0 General Appearance: no apparent distress, + obese Head: normocephalic, atraumatic Eyes: normal inspection, sclerae normal ENT: hearing grossly normal Neck: supple, trachea midline Respiratory/Chest: chest non-tender, normal breath sounds, no respiratory distress, no accessory muscle use Cardiovascular: regular rate, rhythm Abdomen/GI: normal bowel sounds, non tender, soft Extremities/Musculoskelatal: + swelling (2+ pitting edema of the right lower extremty, 1+ pitting edema LLE, chronic appearing discoloration of the LLE) Neurologic/Psych: alert, normal mood/affect Skin: warm/dry, no rash Laboratory Results RUN DATE: 06/26/17 [facility] PAGE 1 RUN TIME: 0935 Specimen Inquiry PATIENT: VILMA NASH LOC: Erica U # : [id number] AGE/SX: 77/F ROOM: [facility] REG : 06/24/[address]: Gaby Peres : 1940 BED: 1 DIS : STATUS: ADM IN TLOC: SPEC #: [id number] TASNEEM: 06/24/17 STATUS: COMP REQ #: [id number] RECD: 06/24/[address]: Ladi Butler, PADonnaC SOURCE: UR, CC ENTR: 06/24/[address] [facility] [address]: Germán Fajardo , D.[place] SPDESC: Damián Whittaker DO Lavery, Doriann M.D. O'Donnell, Sean B., MD ORDERED: CULTURE URCLEAN Procedure Result Verified Site URINE CULTURE Final 06/26/17-0994 Organism 1 ESCHERICHIA COLI COLONY COUNT >100,000 CFU/ml SENS SENSITIVITY TO FOLLOW 1. ESCHERICHIA COLI Target Route Dose RX AB Cost M.I.C. IQ ------ ----- ------ -- ------ -------- - ------ TRIMET/SULFA R >2/38 AMPICILLIN R >16 AMPICILLIN/SUL R >16/8 CEFAZOLIN I 16 CEFOTAXIME S <=2 CEFTRIAXONE S <=1 CEFEPIME S <=4 CEFUROXIME S <=4 IMIPENEM S <=1 GENTAMICIN R >8 TOBRAMYCIN R >8 AMIKACIN S <=16 CIPROFLOXACIN R >2 LEVOFLOXACIN R >4 ERTAPENEM S <=1 NITROFURANTOIN S <=32 PIP/TAZO S <=16 S = SENSITIVE I = INTERMEDIATE R = RESISTANT CHEST ONE VIEW PORTABLE HISTORY: 77 years-old Female Sepsis COMPARISON: Chest radiograph 05/30/2017 TECHNIQUE: Portable upright AP view of the chest FINDINGS: Cardiac silhouette is again enlarged. Lungs are mildly hypoinflated. Right internal jugular hemodialysis catheter is seen with distal tip terminating in the region of the right atrium, unchanged. There is atherosclerosis of the aorta. No pneumothorax or large pleural effusion. Linear subsegmental bibasilar and right midlung opacities are seen suggesting atelectasis. Patient obesity is noted. Degenerative changes are seen within the shoulders. There is mild right hemidiaphragmatic elevation which is unchanged. IMPRESSION: Right mid lung and bibasilar atelectasis without acute cardiopulmonary process. Item Value Date Time C.difficile Toxin B Gene (PCR) - Final Complete 06/26/17 2200 Stool No C. difficile toxin B gene detected MRSA DNA Surveillance Screen - Final Complete 06/24/172049 Nasal Specimen Negative for MRSA by DNA Probe Urine Culture - Final Complete 06/24/17 1934 Urine , Clean Catch Escherichia Coli Blood Culture - Preliminary Resulted 06/24/17 1647 Blood NO GROWTH TO DATE. Blood Culture - Preliminary Resulted 06/24/17 1637 Blood NO GROWTH TO DATE. Last 24 Hours Test 06/27/17 04:57 White Blood Count 1.34 K/uL Red Blood Count 3.04 M/uL Hemoglobin 9.2 g/dL Hematocrit 27.2 % Mean Corpuscular Volume 89.5 fL Mean Corpuscular Hemoglobin 30.3 pg Mean Corpuscular Hemoglobin Concent 33.8 g/dl Platelet Count 13 K/uL RDW Standard Deviation 51.2 fL RDW Coefficient of Variation 16.0 % Neutrophils % (Manual) 68.7 % Lymphocytes % (Manual) 14.8 % Monocytes % (Manual) 13.0 % Eosinophils % (Manual) 3.5 % Neutrophils # (Manual) 0.92 K/uL Total Absolute Neutrophils 0.92 K/uL Lymphocytes # (Manual) 0.20 K/uL Total Absolute Lymphocytes 0.20 K/uL Monocytes # (Manual) 0.17 K/uL Eosinophils # (Manual) 0.05 K/uL Toxic Granulation 1+ Toxic Vacuolation 1+ Dohle Bodies 1+ Giant Platelets 2+ Sodium Level 140 mmol/L Potassium Level 3.3 mmol/L Chloride Level 104 mmol/L Carbon Dioxide Level 32 mmol/L Anion Gap 4.0 mmol/L Blood Urea Nitrogen 12 mg/dl Creatinine 0.86 mg/dl Est Creatinine Clear Calc Drug Dose 63.6 ml/min Estimated GFR () 76.6 Estimated GFR (Non- 66.1 BUN/Creatinine Ratio 14.0 Random Glucose 93 mg/dl Calcium Level 8.1 mg/dl Magnesium Level 1.7 mg/dl Total Bilirubin 0.6 mg/dl Aspartate Amino Transf (AST/SGOT) 6 U/L Alanine Aminotransferase (ALT/SGPT) 14 U/L Alkaline Phosphatase 88 U/L Total Protein 4.4 gm/dl Albumin 1.8 gm/dl Globulin 2.6 gm/dl Albumin/Globulin Ratio 0.7 Assessment & Plan Patient with pancytopenia with neutropenia likely from chemotherapy along with possible MDR E. Coli UTI. The patient is currently on IV Ertapenem. With patient 's history of stent placement and multiple past infections, likely will benefit from continued IV Ertapenem, likely in the range of 10 days. PROVIDER ADDENDUM: Pt. examined and reviewed with CHIVO. Agree with above assessment.
--- NOTE | 2017-06-27 16:53 | Progress Note ---
Subjective Date of Service: Jun 27, 2017. Subjective Pt evaluation today including: conversation w/ patient, conversation w/ family , physical exam, chart review, lab review, review of studies, review of inpatient medication list Problem List Medical Problems: (1) Hypokalemia Status: Acute (2) Hypomagnesemia Status: Acute (3) Neutropenia Status: Acute (4) Pancytopenia Status: Acute (5) Pancytopenia Status: Acute (6) Sepsis Status: Acute (7) UTI (urinary tract infection) Status: Acute Review of Systems Constitutional: + weakness, + fatigue, No see HPI, No fever, No chills, No sweats, No weight loss, No problem reported Eyes: No see HPI, No worsening of vision, No eye pain, No redness, No discharge , No diplopia, No problem reported ENT: No see HPI, No hearing loss, No unusual epistaxis, No nasal symptoms, No sore throat, No tinnitus, No dental problems, No trouble swallowing, No problem reported Respiratory: No see HPI, No cough, No sputum, No wheezing, No shortness of breath, No dyspnea on exertion, No dyspnea at rest, No hemoptysis, No problem reported Cardiac: No see HPI, No chest pain, No orthopnea, No PND, No edema, No claudication, No palpitations, No problem reported Abdomen: No see HPI, No pain, No nausea, No vomiting, No diarrhea, No constipation, No GI bleeding, No problem reported Musculoskeletal: + joint pain, + muscle pain, No see HPI, No swelling, No calf pain, No problem reported Neurologic: No see HPI, No memory loss, No paralysis, No weakness, No numbness/ tingling, No vertigo, No balance problems, No problem reported Psychiatric: No see HPI, No depression symptoms, No anhedonism, No anxiety, No insomnia, No substance abuse, No problem reported Heme: No see HPI, No abnormal bleeding/bruising, No clotting problems, No swollen lymph nodes, No night sweats, No problem reported Endo: No see HPI, No fatigue, No excessive thirst, No excessive urination, No problem reported Skin: No see HPI, No rash, No itch, No new/changing skin lesions, No color change, No bleeding, No problem reported Objective Vital Signs Date Time Temp Pulse Resp B/P (MAP) Pulse Ox O2 Delivery O2 Flow Rate FiO2 06/27/17 15:15 37.1 75 17 138/77 (97) 94 Room Air 06/27/17 12:00 Nasal Cannula 2.0 06/27/17 11:25 36.9 81 20 113/70 (84) 94 Room Air 06/27/17 08:00 Nasal Cannula 2.0 06/27/17 07:20 36.9 82 20 131/59 (83) 93 Room Air 06/27/17 04:24 36.7 86 16 160/74 (102) 97 2.0 06/27/17 04:00 Nasal Cannula 2.0 06/27/17 00:01 36.5 78 18 130/75 (93) 97 2.0 06/26/17 23:59 Nasal Cannula 2.0 06/26/17 20:00 Nasal Cannula 2.0 06/26/17 19:00 37.0 84 16 130/76 (94) 97 Nasal Cannula 2.0 Physical Exam General Appearance: WD/WN, no apparent distress, + obese Eyes: normal inspection, EOMI ENT: normal ENT inspection, hearing grossly normal Neck: supple Respiratory/Chest: chest non-tender, lungs clear, normal breath sounds, no respiratory distress Cardiovascular: regular rate, rhythm, no edema, no murmur Abdomen: normal bowel sounds, non tender, soft Extremities: normal range of motion, non-tender, normal inspection Neurologic/Psychiatric: light cleaner II-XII nml as tested, no motor/sensory deficits, alert, normal mood/affect, oriented x 3 Skin: normal color, warm/dry Laboratory Results Last 24 Hours Test 06/27/17 04:57 White Blood Count 1.34 K/uL Red Blood Count 3.04 M/uL Hemoglobin 9.2 g/dL Hematocrit 27.2 % Mean Corpuscular Volume 89.5 fL Mean Corpuscular Hemoglobin 30.3 pg Mean Corpuscular Hemoglobin Concent 33.8 g/dl Platelet Count 13 K/uL RDW Standard Deviation 51.2 fL RDW Coefficient of Variation 16.0 % Neutrophils % (Manual) 68.7 % Lymphocytes % (Manual) 14.8 % Monocytes % (Manual) 13.0 % Eosinophils % (Manual) 3.5 % Neutrophils # (Manual) 0.92 K/uL Total Absolute Neutrophils 0.92 K/uL Lymphocytes # (Manual) 0.20 K/uL Total Absolute Lymphocytes 0.20 K/uL Monocytes # (Manual) 0.17 K/uL Eosinophils # (Manual) 0.05 K/uL Toxic Granulation 1+ Toxic Vacuolation 1+ Dohle Bodies 1+ Giant Platelets 2+ Sodium Level 140 mmol/L Potassium Level 3.3 mmol/L Chloride Level 104 mmol/L Carbon Dioxide Level 32 mmol/L Anion Gap 4.0 mmol/L Blood Urea Nitrogen 12 mg/dl Creatinine 0.86 mg/dl Est Creatinine Clear Calc Drug Dose 63.6 ml/min Estimated GFR () 76.6 Estimated GFR (Non- 66.1 BUN/Creatinine Ratio 14.0 Random Glucose 93 mg/dl Calcium Level 8.1 mg/dl Magnesium Level 1.7 mg/dl Total Bilirubin 0.6 mg/dl Aspartate Amino Transf (AST/SGOT) 6 U/L Alanine Aminotransferase (ALT/SGPT) 14 U/L Alkaline Phosphatase 88 U/L Total Protein 4.4 gm/dl Albumin 1.8 gm/dl Globulin 2.6 gm/dl Albumin/Globulin Ratio 0.7 Assessment and Plan ASSESSMENT: 1. Severe thrombocytopenia and neutropenia secondary to chemotherapy. 2. Non-Hodgkin lymphoma with positive C-MYC rearrangement, currently on chemotherapy. 3. E coli UTI , complicated, POA, Hypotension earlier today at home with chills , resolved in ED. 4. Hypertension, currently blood pressure meds on hold. 5. History of deep venous thrombosis, status post inferior vena cava filter. 6. Morbid obesity. 7. Diabetes mellitus, on oral hypoglycemic. PLAN: 1. continue telemetry. 2. S/P Transfusion of 2 [place] [id number] [address] Vu, following 3. IV fluid hydration. 4. Neutropenic precaution. 5. Check white blood cell count daily with differential. today is 900 6. Avoid blood pressure medications. Held the patient's lisinopril and Lasix at this point given her earlier history of hypotension, can be restarted accordingly. 7. Continue the patient on fluconazole/Bactrim DS/oral vancomycin/acyclovir. 8. E -coli growing in the urine, Hx of chills at home The patient does have ALLERGY TO CEPHALOSPORIN AND PENICILLIN currently on Invanz, ID consult requested 9. Avoid pharmacologic DVT prophylaxis. Also avoid mechanical SCD to avoid trauma to the muscles of the lower extremity. 12. Continue pain management with fentanyl patch. 13. Case was discussed with family and the patient is currently full code.
[2017-06-27] MEDS: ERTAPENEM IV 1 GM in SODIUM CHLOR 0.9% AD-VAN 50ML IV SCH (21:26)
[2017-06-28] VITALS (8 sets, daily range): BP systolic 128–166; BP diastolic 73–84; PULSE 67–85; TEMP 36.7–37.1; O2SAT 92–96
[2017-06-28 04:49] LABS: BUN/CREATININE RATIO 12.8 (10-20); CALCIUM 8.1 mg/dl (8.5-10.1); CREATININE 0.86 mg/dl (0.60-1.20); MAGNESIUM 1.6 mg/dl (1.8-2.4); POTASSIUM 3.4 mmol/L (3.5-5.1)
[2017-06-28 04:52] LABS: ALB/GLOB RATIO 0.7 (0.9-2); PHOSPHORUS 2.3 mg/dl (2.5-4.9)
[2017-06-28 05:03] LABS: MEAN CELL VOLUME 89.7 fL (80-100); MEAN CORPUSCULAR HEMOGLOBIN 30.1 pg (25-34); MEAN CORPUSCULAR HGB CONC 33.6 g/dl (32-36); PLATELET COUNT 12 K/uL (130-400); RED BLOOD COUNT 3.12 M/uL (4.2-5.4); WHITE BLOOD COUNT 2.99 K/uL (4.8-10.8)
[2017-06-28 05:10] LABS: ANISOCYTOSIS PRESENT; COMPLETE YES; DOHLE BODIES 1+; LYMPH ABS # 0.16 K/uL (1.2-3.4); LYMPHOCYTE % 5.3 %; META ABS # 0.03 K/uL (0-0); METAMYELOCYTE % 0.9 %; NEUTROPHILS % 91.2 %; PLT ESTIMATE SIGNIFIC DECREASED; TOXIC GRANULATION 1+
[2017-06-28] MEDS: CHECK FENTANYL PATCH PLACEMENT SCH ×2 (08:06→15:11)
[2017-06-28] MEDS: FLUCONAZOLE 100 MG TAB PO SCH (08:12)
[2017-06-28] MEDS: DICYCLOMINE HCL 20 MG TAB PO SCH (08:12)
[2017-06-28] MEDS: FLUTICASONE PROPIONATE NA SPR 16 GM BTL NAE SCH (08:12)
[2017-06-28] MEDS: ACYCLOVIR 200 MG CAP PO SCH ×3 (08:13→21:05)
[2017-06-28] MEDS: ALLOPURINOL 100 MG TAB PO SCH (08:13)
[2017-06-28] MEDS: PANTOprazole SOD 40 MG TAB PO SCH (08:13)
[2017-06-28] MEDS: OXYBUTYNIN CHLORIDE 5 MG TABCR PO SCH (08:13)
[2017-06-28] MEDS: DOCUSATE SODIUM 100 MG CAP PO SCH ×2 (08:13→21:06)
[2017-06-28] MEDS: CEROVITE ADV FORMULA TAB PO SCH (08:13)
[2017-06-28] MEDS: LIDODERM (LIDOCAINE) PATCH 5% TD SCH (08:14)
[2017-06-28] MEDS: DRONABINOL 2.5 MG CAP PO SCH (08:40)
--- NOTE | 2017-06-28 09:09 | Hematology/Oncology Prog Note ---
Hematology/Onc Progress Note Date of Service Jun 28, 2017. Diagnoses Non-Hodgkin's lymphoma Neutropenic fever. Subjective 77-year-old patient of Dr. Vu'elba admitted for neutropenic fever. Status post R CHOP chemotherapy cycle #3. Urine positive for Escherichia coli currently on gram-negative coverage. Dates he seems to be making steady improvement, nursing reports no overnight issues specifically fever. Peripheral blood counts have improved with the exception of platelets currently and 12,000. Neutropenic precautions are no longer necessary. Review of microbiology confirms Escherichia coli in the urine but no pathogens in the blood or stool which is also negative for Clostridium Vital Signs Vital Signs Past 12 Hours Date Time Temp Pulse Resp B/P (MAP) Pulse Ox O2 Delivery O2 Flow Rate FiO2 06/28/17 07:16 37.1 76 20 166/84 (111) 92 Room Air 06/28/17 04:00 Room Air 06/28/17 03:20 37.1 82 18 154/84 (107) 95 Room Air 06/28/17 00:00 Room Air 06/27/17 23:10 36.9 72 18 149/67 (94) 98 Room Air Physical Exam Constitutional: General Apperance: obese Level of Distress: NAD, chronically ill Psychiatric: Mental Status: active & alert Orientation: oriented except where noted Head: normocephalic, atraumatic ENMT: normal ENT inspection, pharynx normal Neck: supple Lungs: Auscuitation: CTA except as noted Cardiovascular: Heart Auscultation: RRR Abdomen: Inspection & Palpation: soft, no tenderness, guarding & rebound Musculoskeletal: normal Extremities: no cyanosis, no edema Assessment & Plan 1. Neutropenic fever. 2. Urinary tract infection 3. Non-Hodgkin's lymphoma. 77-year-old female patient with recent diagnosis of non-Hodgkin's lymphoma status post cycle number 3R CHOP chemotherapy admitted with neutropenic fever. Patient continues gram-negative coverage, urine cultures done on admission identify Escherichia coli as the offending pathogen. Neutrophils have recovered and therefore precautions can be discontinued at this juncture. Continue to monitor peripheral blood counts daily and if bleeding ensues will consider transfusion of platelets. Continue empiric antibiotics and IV hydration. Consider physical therapy consultation to improve ambulation and work towards discharge. Thank you again for your assistance in the care of this patient.
[2017-06-28] MEDS ORDERED: POTASSIUM CHLORIDE 20 MEQ TABCR PO ONE (15:00)
[2017-06-28] MEDS ORDERED: MAGNESIUM OXIDE 400 MG TAB PO ONE (15:00)
[2017-06-28] MEDS: HYDROCODONE/ACETAMOPHEN 5/325MG TAB PO PRN (18:37)
--- NOTE | 2017-06-28 20:41 | Progress Note ---
Subjective Date of Service: Jun 28, 2017. Subjective Pt evaluation today including: conversation w/ patient, physical exam, chart review, lab review, review of inpatient medication list Problem List Medical Problems: (1) Hypokalemia Status: Acute (2) Hypomagnesemia Status: Acute (3) Neutropenia Status: Acute (4) Pancytopenia Status: Acute (5) Pancytopenia Status: Acute (6) Sepsis Status: Acute (7) UTI (urinary tract infection) Status: Acute Review of Systems Constitutional: + chills, No see HPI, No fever, No sweats, No weight loss, No weakness, No fatigue, No problem reported Eyes: No see HPI, No worsening of vision, No eye pain, No redness, No discharge , No diplopia, No problem reported ENT: No see HPI, No hearing loss, No unusual epistaxis, No nasal symptoms, No sore throat, No tinnitus, No dental problems, No trouble swallowing, No problem reported Respiratory: No see HPI, No cough, No sputum, No wheezing, No shortness of breath, No dyspnea on exertion, No dyspnea at rest, No hemoptysis, No problem reported Cardiac: No see HPI, No chest pain, No orthopnea, No PND, No edema, No claudication, No palpitations, No problem reported Abdomen: No see HPI, No pain, No nausea, No vomiting, No diarrhea, No constipation, No GI bleeding, No problem reported Musculoskeletal: No see HPI, No joint pain, No muscle pain, No swelling, No calf pain, No problem reported Neurologic: No see HPI, No memory loss, No paralysis, No weakness, No numbness/ tingling, No vertigo, No balance problems, No problem reported Psychiatric: No see HPI, No depression symptoms, No anhedonism, No anxiety, No insomnia, No substance abuse, No problem reported Heme: No see HPI, No abnormal bleeding/bruising, No clotting problems, No swollen lymph nodes, No night sweats, No problem reported Endo: No see HPI, No fatigue, No excessive thirst, No excessive urination, No problem reported Skin: No see HPI, No rash, No itch, No new/changing skin lesions, No color change, No bleeding, No problem reported Objective Vital Signs Date Time Temp Pulse Resp B/P (MAP) Pulse Ox O2 Delivery O2 Flow Rate FiO2 06/28/17 19:03 37.1 76 18 134/76 (95) 96 Room Air 06/28/17 16:00 Room Air 06/28/17 15:13 36.7 85 18 128/79 (95) 92 Room Air 06/28/17 12:00 Room Air 06/28/17 11:35 36.9 67 20 128/80 (96) 93 Room Air 06/28/17 09:57 76 139/73 (95) 06/28/17 08:00 Room Air 06/28/17 07:16 37.1 76 20 166/84 (111) 92 Room Air 06/28/17 04:00 Room Air 06/28/17 03:20 37.1 82 18 154/84 (107) 95 Room Air 06/28/17 00:00 Room Air 06/27/17 23:10 36.9 72 18 149/67 (94) 98 Room Air Physical Exam General Appearance: WD/WN, no apparent distress Eyes: normal inspection, EOMI ENT: normal ENT inspection, hearing grossly normal Neck: supple, no adenopathy, thyroid normal Respiratory/Chest: chest non-tender, lungs clear, normal breath sounds, no respiratory distress Cardiovascular: regular rate, rhythm, no edema, no gallop, no JVD, no murmur Abdomen: normal bowel sounds, non tender, soft, no organomegaly Extremities: normal range of motion, non-tender, normal inspection, no pedal edema Neurologic/Psychiatric: conference service coordinator II-XII nml as tested, no motor/sensory deficits, alert, normal mood/affect, oriented x 3 Skin: normal color, warm/dry, no rash Laboratory Results Last 24 Hours Test 06/28/17 04:01 White Blood Count 2.99 K/uL Red Blood Count 3.12 M/uL Hemoglobin 9.4 g/dL Hematocrit 28.0 % Mean Corpuscular Volume 89.7 fL Mean Corpuscular Hemoglobin 30.1 pg Mean Corpuscular Hemoglobin Concent 33.6 g/dl Platelet Count 12 K/uL RDW Standard Deviation 54.0 fL RDW Coefficient of Variation 16.4 % Neutrophils % (Manual) 91.2 % Lymphocytes % (Manual) 5.3 % Monocytes % (Manual) 2.6 % Metamyelocytes % 0.9 % Neutrophils # (Manual) 2.73 K/uL Total Absolute Neutrophils 2.73 K/uL Lymphocytes # (Manual) 0.16 K/uL Total Absolute Lymphocytes 0.16 K/uL Monocytes # (Manual) 0.08 K/uL Metamyelocytes # 0.03 K/uL Toxic Granulation 1+ Dohle Bodies 1+ Platelet Estimate SIGNIFIC DECREASED Anisocytosis PRESENT Sodium Level 141 mmol/L Potassium Level 3.4 mmol/L Chloride Level 105 mmol/L Carbon Dioxide Level 31 mmol/L Anion Gap 5.0 mmol/L Blood Urea Nitrogen 11 mg/dl Creatinine 0.86 mg/dl Est Creatinine Clear Calc Drug Dose 63.6 ml/min Estimated GFR () 76.6 Estimated GFR (Non- 66.1 BUN/Creatinine Ratio 12.8 Random Glucose 93 mg/dl Calcium Level 8.1 mg/dl Phosphorus Level 2.3 mg/dl Magnesium Level 1.6 mg/dl Total Bilirubin 0.5 mg/dl Aspartate Amino Transf (AST/SGOT) 10 U/L Alanine Aminotransferase (ALT/SGPT) 16 U/L Alkaline Phosphatase 100 U/L Total Protein 4.5 gm/dl Albumin 1.9 gm/dl Globulin 2.6 gm/dl Albumin/Globulin Ratio 0.7 Assessment and Plan ASSESSMENT: 1. chemotherapy induced pancytopenia. 2. Non-Hodgkin lymphoma with positive C-MYC rearrangement, currently on chemotherapy. 3. E coli UTI , complicated, POA, Hypotension earlier today at home with chills , resolved in ED. 4. Hypertension, currently blood pressure meds on hold. 5. History of deep venous thrombosis, status post inferior vena cava filter. 6. Morbid obesity. 7. Diabetes mellitus, on oral hypoglycemic. 8. Severe protein-caloric malnutrition PLAN: 1. continue telemetry. 2. S/P Transfusion of 2 [place] [id number] [place]. Vu, following 3. IV fluid hydration. 4. Neutropenia improved, 5. Check white blood cell count daily with differential. today is 2700 6. Avoid blood pressure medications. Held the patient's lisinopril and Lasix at this point given her earlier history of hypotension, can be restarted accordingly. 7. Continue the patient on fluconazole/Bactrim DS/oral vancomycin/acyclovir. 8. E -coli growing in the urine, Hx of chills at home The patient does have ALLERGY TO CEPHALOSPORIN AND PENICILLIN currently on Invanz, ID consult requested 9. Avoid pharmacologic DVT prophylaxis. Also avoid mechanical SCD to avoid trauma to the muscles of the lower extremity. 12. Continue pain management with fentanyl patch. 13. Case was discussed with family and the patient is currently full code.
[2017-06-28] MEDS: ERTAPENEM IV 1 GM in SODIUM CHLOR 0.9% AD-VAN 50ML IV SCH (21:05)
[2017-06-29] MEDS: CHECK FENTANYL PATCH PLACEMENT SCH ×3 (00:28→15:01)
[2017-06-29 04:02] VITALS: BP 142/72; PULSE 82; TEMP 36.8; O2SAT 95
[2017-06-29 06:08] LABS: HEMATOCRIT 27.3 % (37-47); MEAN CELL VOLUME 90.4 fL (80-100); MEAN CORPUSCULAR HEMOGLOBIN 30.1 pg (25-34); MEAN CORPUSCULAR HGB CONC 33.3 g/dl (32-36); PLATELET COUNT 21 K/uL (130-400); RED BLOOD COUNT 3.02 M/uL (4.2-5.4); WHITE BLOOD COUNT 3.67 K/uL (4.8-10.8)
[2017-06-29 06:33] LABS: BUN/CREATININE RATIO 10.1 (10-20); CALCIUM 7.8 mg/dl (8.5-10.1); CREATININE 0.88 mg/dl (0.60-1.20); MAGNESIUM 1.6 mg/dl (1.8-2.4); POTASSIUM 3.6 mmol/L (3.5-5.1)
[2017-06-29 06:35] LABS: ALB/GLOB RATIO 0.8 (0.9-2); PHOSPHORUS 2.4 mg/dl (2.5-4.9)
[2017-06-29 07:39] VITALS: BP 143/65; PULSE 81; TEMP 36.7; O2SAT 93
[2017-06-29 07:49] LABS: COMPLETE YES; DOHLE BODIES 1+; LYMPH ABS # 0.23 K/uL (1.2-3.4); LYMPHOCYTE % 6.2 %; TOXIC GRANULATION 2+
[2017-06-29] MEDS: FLUTICASONE PROPIONATE NA SPR 16 GM BTL NAE SCH (08:21)
[2017-06-29] MEDS: DICYCLOMINE HCL 20 MG TAB PO SCH (08:22)
[2017-06-29] MEDS: OXYBUTYNIN CHLORIDE 5 MG TABCR PO SCH (08:23)
[2017-06-29] MEDS: FLUCONAZOLE 100 MG TAB PO SCH (08:23)
[2017-06-29] MEDS: DOCUSATE SODIUM 100 MG CAP PO SCH ×2 (08:23→22:07)
[2017-06-29] MEDS: CEROVITE ADV FORMULA TAB PO SCH (08:23)
[2017-06-29] MEDS: ACYCLOVIR 200 MG CAP PO SCH ×3 (08:24→22:07)
[2017-06-29] MEDS: ALLOPURINOL 100 MG TAB PO SCH (08:24)
[2017-06-29] MEDS: PANTOprazole SOD 40 MG TAB PO SCH (08:24)
[2017-06-29] MEDS: FENTANYL 25 MCG/HR TDSY TD SCH (08:25)
[2017-06-29] MEDS: LIDODERM (LIDOCAINE) PATCH 5% TD SCH (08:25)
--- NOTE | 2017-06-29 08:50 | Hematology/Oncology Prog Note ---
Hematology/Onc Progress Note Date of Service Jun 29, 2017. Diagnoses Non-Hodgkin's lymphoma Neutropenic fever. Subjective 77-year-old patient of Dr. Vu's admitted for neutropenic fever. Status post R CHOP chemotherapy cycle #3. Urine positive for Escherichia coli currently on gram-negative coverage. Ramonita seems to be making steady improvement. She has been out of bed ambulating with assistance. Tolerating diet and moving her bowels. There have been no reported fevers in the past 24 hours. Peripheral blood counts are steadily on the rise platelet count specifically improved to 21,000. She no longer requires neutropenic precautions but continues on contact isolation because of previous Clostridium difficile colitis. Family requesting Dr. Vu to discuss therapeutic options. Vital Signs Vital Signs Past 12 Hours Date Time Temp Pulse Resp B/P (MAP) Pulse Ox O2 Delivery O2 Flow Rate FiO2 06/29/17 07:39 36.7 81 20 143/65 (91) 93 Room Air 06/29/17 04:02 36.8 82 18 142/72 (95) 95 Room Air 06/29/17 04:00 Room Air 06/29/17 00:01 Room Air 06/28/17 23:55 36.7 75 18 135/77 (96) 95 Room Air Physical Exam Constitutional: General Apperance: obese Level of Distress: NAD, chronically ill Psychiatric: Mental Status: active & alert Orientation: oriented except where noted Head: normocephalic, atraumatic ENMT: normal ENT inspection, pharynx normal Neck: supple Lungs: Auscuitation: CTA except as noted Cardiovascular: Heart Auscultation: RRR Abdomen: Inspection & Palpation: soft, no tenderness, guarding & rebound Musculoskeletal: normal Extremities: no cyanosis, no edema Assessment & Plan 1. Neutropenic fever. 2. Urinary tract infection 3. Non-Hodgkin's lymphoma. 4. Electrolyte abnormalities 5. Hypoalbuminemia. 77-year-old female patient with recent diagnosis of non-Hodgkin's lymphoma status post cycle number 3R CHOP chemotherapy admitted with neutropenic fever. Patient continues gram-negative coverage, urine cultures done on admission identify Escherichia coli as the offending pathogen. Peripheral blood counts have improved significantly and the patient from an oncologic standpoint can proceed towards discharge. However, would consider correcting all electrolyte abnormalities particularly hypomagnesemia and phosphatemia. Encourage increase protein intake to improve albumin. Again, I informed Dr. Vu of the patient's desire to engage in discussion regarding therapeutics moving forward. Again thank you very much for your assistance in the care of this very pleasant patient
[2017-06-29] MEDS: DRONABINOL 2.5 MG CAP PO SCH (09:10)
[2017-06-29] MEDS: MAGNESIUM SULFATE 1GM / D5W 1 GM in PREMIXED IN D5W 100 ML IV SCH ×2 (09:11→10:49)
[2017-06-29] MEDS: POT PHOSPHATE MONOBASIC W/ SOD TAB PO SCH ×4 (09:11→22:07)
[2017-06-29] MEDS: FENTANYL PATCH REMOVE & WASTE SCH (09:12)
[2017-06-29] MEDS: HYDROCODONE/ACETAMOPHEN 5/325MG TAB PO PRN ×2 (12:01→22:23)
[2017-06-29 12:47] VITALS: BP 112/72; PULSE 82; TEMP 37.1; O2SAT 93
[2017-06-29 15:23] VITALS: BP 136/91; PULSE 83; TEMP 36.7; O2SAT 96
[2017-06-29] MEDS ORDERED: NURSING VERBAL MED ORDER ONE (16:30)
[2017-06-29] MEDS: BOOST VANILLA PO SCH ×2 (17:05)
[2017-06-29 19:41] VITALS: BP 128/76; PULSE 83; TEMP 36.4; O2SAT 98
[2017-06-29] MEDS: ONDANSETRON INJ 2 MG/ML 2 ML VIAL IV PRN (19:44)
[2017-06-29] MEDS: ERTAPENEM IV 1 GM in SODIUM CHLOR 0.9% AD-VAN 50ML IV SCH (22:07)
[2017-06-30] VITALS (8 sets, daily range): BP systolic 118–172; BP diastolic 74–85; PULSE 68–108; TEMP 36.3–36.8; O2SAT 94–98
[2017-06-30] MEDS: CHECK FENTANYL PATCH PLACEMENT SCH ×4 (00:13→23:14)
--- NOTE | 2017-06-30 05:49 | Progress Note ---
Subjective Date of Service: Jun 29, 2017. Subjective Pt evaluation today including: conversation w/ patient, conversation w/ family (son at bedside), physical exam, chart review, lab review, review of studies, review of inpatient medication list Pain: b/l hips - lateral aspect; was made worse while rehabbing at [facility] Intake: poor-fair Voiding: no voiding problems tele stable overnight feels very tired but no fever or chills main complaint is that of hip pain son reports that she was to have MRIs of her hips - ordered by heme/onc ? Problem List Medical Problems: (1) Hypokalemia Status: Acute (2) Hypomagnesemia Status: Acute (3) Neutropenia Status: Acute (4) Pancytopenia Status: Acute (5) Pancytopenia Status: Acute (6) Sepsis Status: Acute (7) UTI (urinary tract infection) Status: Acute Review of Systems Constitutional: No fever ENT: + problem reported (denies mouth pain or dysphagia or odynophagia ) Respiratory: No cough, No shortness of breath Cardiac: No chest pain Abdomen: No pain Objective Vital Signs Date Time Temp Pulse Resp B/P (MAP) Pulse Ox O2 Delivery O2 Flow Rate FiO2 06/29/17 19:41 36.4 83 18 128/76 (93) 98 Room Air 06/29/17 16:00 Room Air 06/29/17 15:23 36.7 83 17 136/91 (106) 96 Room Air 06/29/17 12:47 37.1 82 20 112/72 (85) 93 06/29/17 12:00 Room Air 06/29/17 08:00 Room Air 06/29/17 07:39 36.7 81 20 143/65 (91) 93 Room Air 06/29/17 04:02 36.8 82 18 142/72 (95) 95 Room Air 06/29/17 04:00 Room Air 06/29/17 00:01 Room Air 06/28/17 23:55 36.7 75 18 135/77 (96) 95 Room Air Physical Exam General Appearance: no apparent distress, + obese, + pertinent finding (looks tired and sickly) ENT: pharynx normal, + pertinent finding (no mucositis ) Neck: no JVD Respiratory/Chest: lungs clear, no respiratory distress, no accessory muscle use, + decreased breath sounds (bases) Cardiovascular: regular rate, rhythm, no gallop Abdomen: normal bowel sounds, non tender, soft, no organomegaly Extremities: + pedal edema (trace b/l ) Neurologic/Psychiatric: alert, oriented x 3 Skin: + pertinent finding (port right chest clean) Comments: musculoskeletal - b/l hips - tender to palpation over both trochanteric bursa and IT bands; I am able to flex both hips w/o pain; internal and external rotation of both hips fails to elicit pain back - no specific tenderness along spinous processes with palpation Laboratory Results Last 24 Hours Test 06/29/17 05:05 White Blood Count 3.67 K/uL Red Blood Count 3.02 M/uL Hemoglobin 9.1 g/dL Hematocrit 27.3 % Mean Corpuscular Volume 90.4 fL Mean Corpuscular Hemoglobin 30.1 pg Mean Corpuscular Hemoglobin Concent 33.3 g/dl Platelet Count 21 K/uL RDW Standard Deviation 54.6 fL RDW Coefficient of Variation 16.7 % Neutrophils % (Manual) 85.0 % Lymphocytes % (Manual) 6.2 % Monocytes % (Manual) 8.8 % Neutrophils # (Manual) 3.12 K/uL Total Absolute Neutrophils 3.12 K/uL Lymphocytes # (Manual) 0.23 K/uL Total Absolute Lymphocytes 0.23 K/uL Monocytes # (Manual) 0.32 K/uL Toxic Granulation 2+ Dohle Bodies 1+ Sodium Level 141 mmol/L Potassium Level 3.6 mmol/L Chloride Level 104 mmol/L Carbon Dioxide Level 31 mmol/L Anion Gap 6.0 mmol/L Blood Urea Nitrogen 9 mg/dl Creatinine 0.88 mg/dl Est Creatinine Clear Calc Drug Dose 62.0 ml/min Estimated GFR () 74.5 Estimated GFR (Non- 64.3 BUN/Creatinine Ratio 10.1 Random Glucose 94 mg/dl Calcium Level 7.8 mg/dl Phosphorus Level 2.4 mg/dl Magnesium Level 1.6 mg/dl Total Bilirubin 0.4 mg/dl Aspartate Amino Transf (AST/SGOT) 10 U/L Alanine Aminotransferase (ALT/SGPT) 14 U/L Alkaline Phosphatase 99 U/L Total Protein 4.4 gm/dl Albumin 1.9 gm/dl Globulin 2.5 gm/dl Albumin/Globulin Ratio 0.8 Assessment and Plan 77yo female: 1. sepsis 2nd to MDR e. coli UTI - day #4 ertapenem - planning 10 days of Rx. 2. hypomagnesemia - replace IV, repeat level am. 3. pancytopenia - severe - 2nd to recent chemotherapy for NHL. Slowly improving. Appreciate heme/onc consultation. 4. neutropenia - resolved; d/c precautions. 5. thrombocytopenia - severe - s/p platelet infusion earlier this admission. scantly improved; repeat CBC am. 6. anemia - severe - multifactorial - s/p PRBCs earlier this admission. repeat CBC in am. check iron studies, b12, and folate to be complete in light of poor nutrition. 7. hypophosphatemia - replace, repeat level in 48 hours. 8. severe protein calorie malnutrition - dietary has seen; on marinol; add supplements. 9. hypokalemia - resolved. 10. DVT proph - chemical means contraindicated due to thrombocytopenia. SCDs for now. 11. deconditioning/weakness - multifactorial - PT, OT - likely needs rehab again after admission. 12. NHL - followed by heme/onc - see discussion above. Cont acyclovir, bactrim, etc for prophylaxis. 13. HTN - holding ARB due to normal BPs w/o the medication and recent hypotension. 14. pain syndrome - fentanyl patch. 15. b/l hip pain - suspect trochanteric bursitis and IT band issues. Will d/w Dr. Lopez the imaging he was requesting as outpatient. son updated Continued [facility] stay due to: inadequate po fluid intake, inadequate oral pain control, ambulation difficulties, multiple IV medications needed Discharge planning: uncertain
[2017-06-30 06:39] LABS: MEAN CELL VOLUME 90.6 fL (80-100); MEAN CORPUSCULAR HEMOGLOBIN 29.9 pg (25-34); PLATELET COUNT 34 K/uL (130-400); RED BLOOD COUNT 2.98 M/uL (4.2-5.4); WHITE BLOOD COUNT 3.94 K/uL (4.8-10.8)
[2017-06-30 07:17] LABS: FERRITIN 1580.2 ng/ml (8.0-388.0)
[2017-06-30 07:19] LABS: BASO % 0.3 %; BASO ABS # 0.01 K/uL (0-0.2); COMPLETE YES; EOS % 0.3 %; IG% 1.5 %; LYMPH % 11.2 %; LYMPH ABS # 0.44 K/uL (1.2-3.4); MONO % 11.4 %; NEUT % 75.3 %; TOXIC GRANULATION 1+
[2017-06-30] MEDS: BOOST VANILLA PO SCH ×6 (07:30→15:39)
[2017-06-30] MEDS: FLUTICASONE PROPIONATE NA SPR 16 GM BTL NAE SCH (08:04)
[2017-06-30] MEDS: CEROVITE ADV FORMULA TAB PO SCH (08:05)
[2017-06-30] MEDS: PANTOprazole SOD 40 MG TAB PO SCH (08:09)
[2017-06-30] MEDS: DICYCLOMINE HCL 20 MG TAB PO SCH (08:09)
[2017-06-30] MEDS: POT PHOSPHATE MONOBASIC W/ SOD TAB PO SCH ×4 (08:09→19:37)
[2017-06-30] MEDS: ACYCLOVIR 200 MG CAP PO SCH ×3 (08:09→19:37)
[2017-06-30] MEDS: ALLOPURINOL 100 MG TAB PO SCH (08:09)
[2017-06-30] MEDS: DOCUSATE SODIUM 100 MG CAP PO SCH ×2 (08:09→19:37)
[2017-06-30] MEDS: FLUCONAZOLE 100 MG TAB PO SCH (08:10)
[2017-06-30] MEDS: LIDODERM (LIDOCAINE) PATCH 5% TD SCH (08:11)
[2017-06-30] MEDS: OXYBUTYNIN CHLORIDE 5 MG TABCR PO SCH (08:12)
[2017-06-30] MEDS: DRONABINOL 2.5 MG CAP PO SCH (08:18)
[2017-06-30] MEDS: HYDROCODONE/ACETAMOPHEN 5/325MG TAB PO PRN ×3 (08:25→19:40)
--- NOTE | 2017-06-30 08:40 | Hematology/Oncology Prog Note ---
Hematology/Onc Progress Note Date of Service Jun 30, 2017. Diagnoses Non-Hodgkin's lymphoma Neutropenic fever. Urinary tract infection (Escherichia coli). Subjective 77-year-old patient of Dr. Vu'elba admitted for neutropenic fever. Status post R CHOP chemotherapy cycle #3. Urine positive for Escherichia coli currently on gram-negative coverage. Reviewed the Hospital's clinical note and agree mass he probably should be sent to stepdown unit for further strengthening and nutritional improvement. Her peripheral counts while not normal are heading in the right direction. Nursing reports no overnight difficulties. Ramonita denies any pain and seems to be tolerating regular diet. Vital Signs Vital Signs Past 12 Hours Date Time Temp Pulse Resp B/P (MAP) Pulse Ox O2 Delivery O2 Flow Rate FiO2 06/30/17 07:14 36.8 74 20 143/83 (103) 95 Room Air 06/30/17 04:22 36.6 68 18 172/78 (109) 98 Room Air 06/30/17 04:00 Room Air 06/30/17 00:11 36.7 84 18 140/85 (103) 95 Room Air 06/29/17 23:59 Room Air Physical Exam Constitutional: General Apperance: obese Level of Distress: NAD, chronically ill Psychiatric: Mental Status: active & alert Orientation: oriented except where noted Head: normocephalic, atraumatic ENMT: normal ENT inspection, pharynx normal Neck: supple Lungs: Auscuitation: CTA except as noted Cardiovascular: Heart Auscultation: RRR Abdomen: Inspection & Palpation: soft, no tenderness, guarding & rebound Musculoskeletal: normal Extremities: no cyanosis, no edema Assessment & Plan 1. Neutropenic fever. 2. Urinary tract infection 3. Non-Hodgkin's lymphoma. 4. Electrolyte abnormalities 5. Hypoalbuminemia. 77-year-old female patient with recent diagnosis of non-Hodgkin's lymphoma status post cycle number 3R CHOP chemotherapy admitted with neutropenic fever. Patient continues gram-negative coverage, urine cultures done on admission identify Escherichia coli as the offending pathogen. Consider conversion to oral antibiotics if not already ordered. Peripheral blood counts have improved significantly and the patient from an oncologic standpoint can proceed towards discharge. Transfusional support is not necessary. We'll advise Dr. Vu of Ramonita's pending discharge and placement admitted an assisted living facility. I have nothing further to add and we will sign off. Please contact us if there are further questions regarding Ramonita's care.
--- NOTE | 2017-06-30 18:49 | DIAGNOSTIC IMAGING REPORT ---
LEFT LOWER EXTREMITY WITHOUT CT DOSE: 815.06 mGy.cm HISTORY: Pain hip pain, eval for fracture, etc TECHNIQUE: Multiaxial CT images of the left hip were performed and reformatted in the sagittal and coronal plane without the use of contrast. A dose lowering technique was utilized adhering to the principles of ALARA. COMPARISON: None. FINDINGS: No fracture or dislocation. Soft tissues are unremarkable. Mild degenerative change IMPRESSION: No fractures. Mild degenerative change The above report was generated using voice recognition software. It may contain grammatical, syntax or spelling errors. Electronically signed by: Yoandy Nicolas M.D. 06/30/2017 6:48 PM Dictated Date/Time: 06/30/2017 6:45 PM
--- NOTE | 2017-06-30 18:51 | DIAGNOSTIC IMAGING REPORT ---
CT RIGHT LOWER EXTREMITY WITHOUT CT DOSE: CLINICAL HISTORY: Severe right hip pain. Evaluate for occult fracture. TECHNIQUE: A dose lowering technique was utilized adhering to the principles of ALARA. COMPARISON STUDY: None. FINDINGS: There is an indwelling left-sided nephroureteral stent. There is colonic diverticulosis. There is a fat-containing lower abdominal wall ventral hernia. No fractures of the right hip are visualized. There is no evidence of pathologic joint effusion. No intramuscular masses are visualized on this noncontrast study. There are mild osteoarthritic changes. No destructive lesions are evident. Degenerative changes are present within the symphysis pubis. IMPRESSION: 1. Mild degenerative change 2. No evidence of occult fracture 3. No destructive lesions are visualized Electronically signed by: Kwaku Lai M.D. 06/30/2017 6:49 PM Dictated Date/Time: 06/30/2017 6:47 PM
[2017-06-30] MEDS: ACETAMINOPHEN 325 MG TAB PO PRN (19:02)
[2017-06-30] MEDS: ERTAPENEM IV 1 GM in SODIUM CHLOR 0.9% AD-VAN 50ML IV SCH (20:54)
[2017-07-01] MEDS: HYDROCODONE/ACETAMOPHEN 5/325MG TAB PO PRN ×3 (01:37→14:39)
--- NOTE | 2017-07-01 05:31 | Progress Note ---
Subjective Date of Service: late entry for visit Jun 30, 2017. Subjective Pt evaluation today including: conversation w/ patient, conversation w/ family (son at bedside), physical exam, chart review, lab review, conversation w/ eco industrial development consultant (Dr. Vu -heme/onc) Pain: b/l hips- modestly better today PO Intake: fair at best tele stable overnight feels a bit better today with improved energy sat in chair for most of day today she is agreeable to SNF placement for rehab Problem List Medical Problems: (1) Hypokalemia Status: Acute (2) Hypomagnesemia Status: Acute (3) Neutropenia Status: Acute (4) Pancytopenia Status: Acute (5) Pancytopenia Status: Acute (6) Sepsis Status: Acute (7) UTI (urinary tract infection) Status: Acute Review of Systems Constitutional: No fever Respiratory: No shortness of breath Cardiac: No chest pain Abdomen: No pain Objective Vital Signs Date Time Temp Pulse Resp B/P (MAP) Pulse Ox O2 Delivery O2 Flow Rate FiO2 07/01/17 00:01 Room Air 06/30/17 23:43 36.7 76 18 141/80 (100) 94 Room Air 06/30/17 19:54 Room Air 06/30/17 18:54 36.7 79 18 118/74 (89) 98 Room Air 06/30/17 18:34 36.7 90 20 95 06/30/17 16:00 Room Air 06/30/17 15:33 36.7 90 20 125/74 (91) 95 Room Air 06/30/17 12:00 Room Air 06/30/17 11:01 36.3 108 20 122/78 (93) 96 Room Air 06/30/17 08:00 Room Air 06/30/17 07:14 36.8 74 20 143/83 (103) 95 Room Air Physical Exam General Appearance: no apparent distress, + obese ENT: pharynx normal (no thrush or mucositis) Neck: no JVD Respiratory/Chest: lungs clear, no respiratory distress, no accessory muscle use Cardiovascular: regular rate, rhythm, no gallop, no murmur Abdomen: normal bowel sounds, non tender, soft, no organomegaly Extremities: no pedal edema Neurologic/Psychiatric: alert, oriented x 3 Skin: + pertinent finding (right chest central line clean) Laboratory Results Last 24 Hours Test 06/30/17 05:46 White Blood Count 3.94 K/uL Red Blood Count 2.98 M/uL Hemoglobin 8.9 g/dL Hematocrit 27.0 % Mean Corpuscular Volume 90.6 fL Mean Corpuscular Hemoglobin 29.9 pg Mean Corpuscular Hemoglobin Concent 33.0 g/dl Platelet Count 34 K/uL Mean Platelet Volume 11.0 fL Neutrophils (%) (Auto) 75.3 % Lymphocytes (%) (Auto) 11.2 % Monocytes (%) (Auto) 11.4 % Eosinophils (%) (Auto) 0.3 % Basophils (%) (Auto) 0.3 % Neutrophils # (Auto) 2.97 K/uL Lymphocytes # (Auto) 0.44 K/uL Monocytes # (Auto) 0.45 K/uL Eosinophils # (Auto) 0.01 K/uL Basophils # (Auto) 0.01 K/uL RDW Standard Deviation 56.0 fL RDW Coefficient of Variation 17.0 % Immature Granulocyte % (Auto) 1.5 % Immature Granulocyte # (Auto) 0.06 K/uL Toxic Granulation 1+ Magnesium Level 2.0 mg/dl Iron Level 25 mcg/dl Total Iron Binding Capacity 131 mcg/dl Transferrin 99 mg/dl Transferrin % Saturation 18 % Ferritin 1580.2 ng/ml Vitamin B12 Level > 2000 pg/mL Folate 3.83 ng/mL Assessment and Plan 77yo female: 1. sepsis 2nd to MDR e. coli UTI - day #5 ertapenem - planning 10 days of Rx. 2. hypomagnesemia - resolved. 3. pancytopenia - severe - 2nd to recent chemotherapy for NHL. Slowly improving. Appreciate heme/onc consultation. 4. neutropenia - resolved; d/c precautions. 5. thrombocytopenia - severe - s/p platelet infusion earlier this admission. again improved today; repeat CBC in am for stability. 6. anemia - severe - multifactorial - s/p PRBCs earlier this admission. repeat CBC stable today. also has folate deficiency - replace. iron studies, b12 adequate. 7. hypophosphatemia - replacing, repeat level in am. 8. severe protein calorie malnutrition - dietary has seen; on marinol; added supplements. 9. hypokalemia - resolved. 10. DVT proph - chemical means contraindicated due to thrombocytopenia. SCDs for now. 11. deconditioning/weakness - multifactorial - PT, OT - likely needs rehab again after admission. 12. NHL - followed by heme/onc - see discussion above. Cont acyclovir, bactrim, etc for prophylaxis. 13. HTN - holding ARB due to normal BPs w/o the medication and recent hypotension. 14. pain syndrome - fentanyl patch. 15. b/l hip pain - suspect trochanteric bursitis and IT band issues. Spoke with Dr. Vu who was planning MRIs of hips. Will obtain CT to exclude subacute fractures, other pathology. 16. folate def - folic acid 1mg daily x 30 days. son updated d/c tele - move to med/surg dispo planning for discharge Continued [facility] stay due to: inadequate po fluid intake, ambulation difficulties , multiple IV medications needed Discharge planning: shelter facility
[2017-07-01 07:40] VITALS: BP 136/76; PULSE 77; TEMP 37; O2SAT 99
[2017-07-01] MEDS: BOOST VANILLA PO SCH ×6 (08:00→17:00)
[2017-07-01] MEDS: CHECK FENTANYL PATCH PLACEMENT SCH ×2 (08:02→15:44)
[2017-07-01] MEDS: FLUTICASONE PROPIONATE NA SPR 16 GM BTL NAE SCH (08:09)
[2017-07-01] MEDS: DOCUSATE SODIUM 100 MG CAP PO SCH (08:09)
[2017-07-01] MEDS: PANTOprazole SOD 40 MG TAB PO SCH (08:10)
[2017-07-01] MEDS: ALLOPURINOL 100 MG TAB PO SCH (08:10)
[2017-07-01] MEDS: CEROVITE ADV FORMULA TAB PO SCH (08:10)
[2017-07-01] MEDS: ACYCLOVIR 200 MG CAP PO SCH ×2 (08:11→13:30)
[2017-07-01] MEDS: DICYCLOMINE HCL 20 MG TAB PO SCH (08:11)
[2017-07-01] MEDS: FLUCONAZOLE 100 MG TAB PO SCH (08:11)
[2017-07-01] MEDS: POT PHOSPHATE MONOBASIC W/ SOD TAB PO SCH ×3 (08:13→17:20)
[2017-07-01] MEDS: OXYBUTYNIN CHLORIDE 5 MG TABCR PO SCH (08:13)
[2017-07-01] MEDS: DRONABINOL 2.5 MG CAP PO SCH (08:21)
[2017-07-01 09:53] LABS: MEAN CELL VOLUME 90.9 fL (80-100); MEAN CORPUSCULAR HEMOGLOBIN 29.5 pg (25-34); MEAN CORPUSCULAR HGB CONC 32.5 g/dl (32-36); MEAN PLATELET VOLUME 9.8 fL (7.4-10.4); PLATELET COUNT 57 K/uL (130-400); RED BLOOD COUNT 3.08 M/uL (4.2-5.4); WHITE BLOOD COUNT 4.42 K/uL (4.8-10.8)
[2017-07-01] MEDS: LIDODERM (LIDOCAINE) PATCH 5% TD SCH (10:06)
[2017-07-01 10:10] LABS: CALCIUM 7.9 mg/dl (8.5-10.1); CREATININE 0.82 mg/dl (0.60-1.20); PHOSPHORUS 3.6 mg/dl (2.5-4.9); POTASSIUM 3.5 mmol/L (3.5-5.1)
[2017-07-01 10:13] LABS: COMPLETE YES; EOS % 0.2 %; IG% 1.6 %; LYMPH % 10.6 %; LYMPH ABS # 0.47 K/uL (1.2-3.4); MONO % 11.1 %; NEUT % 76.5 %; TOXIC GRANULATION 1+
[2017-07-01] MEDS ORDERED: ERTAPENEM IV 1 GM in SODIUM CHLOR 0.9% AD-VAN 50ML IV SCH (15:30)
[2017-07-01 15:42] VITALS: BP 152/79; PULSE 81; TEMP 36.9; O2SAT 96
[2017-07-01 15:49] VITALS: BP 152/79; PULSE 81; TEMP 36.9; O2SAT 96
[2017-07-01] MEDS ORDERED: ERTA1INJ IV (16:02)
[2017-07-01] MEDS ORDERED: FENT25DI10 TOP (16:02)
[2017-07-01] MEDS ORDERED: BACL1TAB PO (16:02)
[2017-07-01] MEDS ORDERED: CMPS25 PR (16:02)
[2017-07-01] MEDS ORDERED: POTTAB2 PO (16:02)
[2017-07-01] MEDS ORDERED: FLV1 PO (16:02)
[2017-07-01] MEDS ORDERED: MRN/25 PO (16:02)
[2017-07-01] MEDS ORDERED: LDDP5 TD (16:02)
[2017-07-01] MEDS ORDERED: HYDR-5688 PO (16:02)
[2017-07-01] MEDS ORDERED: NITR1CAP16 PO (16:03)
--- NOTE | 2017-07-01 16:08 | Discharge Instructions ---
Discharge Instructions Date of Service Jul 01, 2017. Admission Reason for Admission: Weakness;Neutropenia Discharge Discharge Diagnosis / Problem: 1. UTI 2. Pancytopenia 3. Deconditioning Discharge Goals Goal(s): Decrease discomfort, Improve function, Improve disease control, Improve nutritional status, Learn about illness, Diagnostic testing, Therapeutic intervention Activity Recommendations Activity Level: Assistance Required Therapies: Physical Therapy, Occupational Therapy . Additional Information Patient informed of condition: Yes Advance Directives: Yes DNR: No Level of Care: Skilled Communicable Disease: No Prognosis: Stable Oxygen at (LPM): none Ness Catheter: No Instructions / Follow-Up Instructions / Follow-Up Please see Dr. Galindo Vu [facility] - within 4-5 days Current Hospital Diet Patient's current hospital diet: Diabetes Type 2 Diet Discharge Diet Recommended Diet: Diabetes Type 2 Diet Procedures Procedures Performed: CAT scan of both hips - no fractures or evidence of malignancy. Blood transfusion. Platelet infusion. Pending Studies Studies pending at discharge: no Physician Orders On Transfer IV Therapy: IV ertapenem 1gram daily x 4 days beginning 07/02/17 via chest [place] catheter Vital Signs: per routine fingerstick blood sugar checks every morning and at bedtime Additional Orders: CBC with diff BMP please check these labs on Tuesday AM, 07/03/17 - report results to senior medical director ICE to either hip 20-30 minutes each time several times a day as desired for pain POLST Discussion: Not Applicable Medical Emergencies . Who to Call and When: Medical Emergencies: If at any time you feel your situation is an emergency, please call 911 immediately. . Non-Emergent Contact Non-Emergency issues call your: Oncologist Call Non-Emergent contact if: temperature is above 100.5, your pain is not controlled, your pain is worsening, your pain is unusual for you, your pain is concerning you, you have any medication questions . . "Provider Documentation" section prepared by Samson Nicolas. . Core Measure Problem Core Measures: None
[2017-07-01] MEDS: ACETAMINOPHEN 325 MG TAB PO PRN (16:10)
--- NOTE | 2017-07-01 20:53 | Discharge Summary ---
Discharge Summary Date of Service Jul 01, 2017. Discharge Summary Admission Date: Jun 24, 2017 at 19:31 Discharge Date: Jul 01, 2017 Discharge Disposition: intermediate facility ([facility] ) Principal Diagnosis: e. coli UTI with sepsis Problems/Secondary Diagnoses: 1. B-Cell Lymphoma 2. Hypokalemia, hypomagnesemia, hypophosphatemia - resolved 3. severe pancytopenia - resolving 4. neutropenia - resolved 5. T2DM 6. HTN 7. bilateral hip pain - suspect trochanteric bursitis +/- IT band tendonitis 8. severe protein calorie malnutrition 9. large left-sided staghorn renal stone 10. recurrent MDR e. coli UTIs 11. morbid obesity - BMI 44 12. h/o DVT s/p IVC filter 13. folic acid deficiency 14. severe deconditioning 15. chronic low back pain Procedures: 1. PRBCs transfusion 2. Platelet transfusion 3. CT b/l hips with mild DJD only; no fractures, etc Consultations: 1. infectious disease - ABELARDO Caruso 2. hematology/oncology - Galindo Vu MD / Deangelo Hidalgo DO 3. PT, OT Medication Reconciliation New Medications: Ertapenem Sodium (Invanz) 1 Gm Inj 1 GM IV DAILY for 4 Days, #4 VIAL 0 Refills start 07/02/17 Nitrofurantoin Monohyd Macro (Macrobid) 100 Mg Cap 1 CAP PO BID for 30 Days, #60 TAB 5 Refills begin the AM of 07/06/2017 Folic Acid (Folic Acid) 1 Mg Tab 1 MG PO QAM for 30 Days, #30 TAB 0 Refills Lidocaine (Lidocaine) 1 Patch Tdsy 1 PATCH TD QAM, #30 PATCH 0 Refills apply to back for 12 hours, remove for 12 hours Pot Phosphate Monobasic W/ Sod (Phospha 250 Neutral) 1 Tab Tab 1 TAB PO QID for 5 Days, #20 TAB 0 Refills Changed Medications: Hydrocodone/Acetaminophen 5MG/325MG ([place] 5MG/325MG) Tab 1 TABLET PO Q4 PRN for Pain, #30 TAB 0 Refills (Changed from: Refills: ) PRN PAIN Continued Medications: Acetaminophen (Tylenol) 500 Mg Tab 500 MG PO Q4 PRN for Pain Acyclovir (Zovirax) 200 Mg Cap 200 MG PO TID, #90 CAP Albuterol Hfa (Ventolin Hfa) 200 Puffs/85500 Mcg Aers 2 PUFFS INH QID PRN for Wheezing Allopurinol (Zyloprim) 100 Mg Tab 200 MG PO DAILY TWO 100 MG TABLETS Baclofen (Lioresal) 10 Mg Tab 10 MG PO TID PRN for Muscle Spasms, #30 TAB 0 Refills (This prescription has been renewed) Bisacodyl (Dulcolax) 10 Mg Sup 1 SUPP AR UD PRN for Constipation, SUP Calcium Carbonate (Tums) 500 Mg Chew 500 MG PO Q4 PRN for Indigestion Dicyclomine Hcl (Bentyl) 20 Mg Tab 20 MG PO QAM Docusate Sodium (Docusate Sodium) 100 Mg Cap 1 CAP PO BID for 15 Days, #30 CAP Dronabinol (Marinol) 2.5 Mg Cap 2.5 MG PO QAM, #14 TAB 0 Refills (This prescription has been renewed) Fentanyl (Duragesic) 25 Mcg/Hr Dis 25 MCG TOP Q72H, #10 PATCH 0 Refills (This prescription has been renewed) Fluconazole (Fluconazole) 100 Mg Tab 100 MG PO QAM Fluticasone Propionate (Nasal) (Flonase Allergy Relief) 50 Mcg/Act Spr 2 SPRAYS VIGNESH DAILY Furosemide (Lasix) 20 Mg Tab 20 MG PO QAM Losartan Potassium (Cozaar) 100 Mg Tab 100 MG PO DAILY Magnesium Hydroxide (Milk Of Magnesia) 30 Ml Susp 30 ML PO DIRECTED, ML Meclizine Hcl (Meclizine Hcl) 25 Mg Tab 25 MG PO TID PRN for VERTIGO Multivitamins/Minerals (Mvi With Minerals) Tab 1 TAB PO DAILY, TAB Ondansetron Hcl (Zofran) 4 Mg Tab 4 MG PO Q6 PRN for Nausea Oxybutynin Chloride Er (Ditropan Xl) 10 Mg Tab 10 MG PO QAM, TAB Pantoprazole (Protonix) 40 Mg Tab 40 MG PO DAILY Prochlorperazine (Compazine Supp) 25 Mg Supp 25 MG AR Q6H PRN for Nausea or Vomiting, #30 SUPP 0 Refills (This prescription has been renewed) Sennosides-Docusate Sodium (Senna S) 1 Tab Tab 1 TABS PO DAILY PRN for Constipation Sitagliptin Phosphate (Januvia) 100 Mg Tab 100 MG PO QAM Sulfa/Trimethoprim (Bactrim Ds 800MG/160MG) Tab 1 TAB PO UD, #30 TAB one tablet tuesday and Discontinued Medications: Oxycodone HCl (Oxycodone HCl) 5 Mg Tab 5-10 MG PO Q2H PRN for Pain NEEDED FOR MODERATE TO SEVERE PAIN. Vancomycin Hcl (Vancomycin) 125 Mg Cap 125 MG PO QID Discharge Exam Physical Exam: General Appearance: no apparent distress, + obese ENT: pharynx normal (no thrush or mucositis; MMM) Neck: no JVD Respiratory/Chest: lungs clear, no respiratory distress, no accessory muscle use Cardiovascular: regular rate, rhythm, no gallop, no murmur, normal peripheral pulses Abdomen / GI: normal bowel sounds, non tender, soft, no organomegaly Extremities: no pedal edema, + pertinent finding (b/l hips - passive ROM does not elicit pain; tender to palpation over both trochanteric bursa) Neurologic/Psychiatric: alert, oriented x 3 Skin: no rash, + pertinent finding (right-sided [place] catheter clean) Hospital Course HISTORY OF PRESENT ILLNESS: The patient is a 77-year-old pleasant female who was diagnosed with non-Hodgkin's lymphoma, B-Cell, in March 2017. Unfortunately it was C-MYC rearrangement positive indicating aggressive disease. The patient was admitted to [facility] and received 2 cycles of DA-EPOCH-R. Following her stay at [place] she was discharged to rehab. Unfortunately she was readmitted to [facility] from May 30 to June 07 for e. coli UTI with sepsis. She was discharged to [facility] again for rehab. On 06/16/2017 she had another cycle of chemotherapy. After getting home from [facility] she became ill once again. On the morning of admission the home health visiting nurse noticed that her blood pressure was very low, probably 70/50, and the patient was feeling extremely weak and had chills. She was brought to the ED. By the time she came to the ED, her blood pressure was actually within normal range, but her platelets were found to be 6, white blood cell count was found to be 0.1, hemoglobin was 8, and she was extremely fatigued and tired. HOSPITAL COURSE: The patient's severe pancytopenia at presentation was due to her recent chemotherapy for her Non-Hodgkin's Lymphoma. She received, in total, 3 units of platelets and 2 units of PRBCs. Fortunately her counts stabilized for the remainder of her stay. Hemoglobin at discharge was 9.1 and platelets were 57,000. Leukopenia and neutropenia were fully resolved by the time of transfer to [facility]. Ms. Perez was treated for sepsis 2nd to MDR e. coli UTI. She received 6 days of IV ertapenem and will need 4 more days of such following discharge Blood cultures remained negative while here. The patient had numerous electrolyte deficiencies all of which were replaced and were largely normal prior to discharge. Other problems addressed while here included - 1. severe protein calorie malnutrition - boost/ensure recommended as tolerated. She will continue on marinol for 1-2 weeks after discharge. 2. folate deficiency - recommend 30 days of folic acid 1mg daily. 3. recurrent e. coli UTIs - after discussion with infectious disease we will attempt UTI prophylaxis with macrobid 100mg BID after her ertapenem course is complete. The recurrent UTIs are likely due to bladder incontinence, presence of a staghorn renal stone, as well as immunosuppression. 4. bilateral hip pain - by report she had normal x-rays at [facility] in the recent past. She underwent CT of both hips and imaging demonstrated mild DJD only. I suspect some element of trochanteric bursitis and/or IT band tendonitis. Continue ice, stretching, and if platelets normalize could consider short course of NSAIDs. Orthopedic follow-up could also be considered if her symptoms worsen/persist. 5. deconditioning/weakness - PT, OT both recommended rehab and she will transfer to [facility] for such. Recommendations - 1. CBC with diff and BMP along with phosphorus level on 07/03/17 2. follow-up with Dr. Galindo Vu within 5 days to discuss timing of future lymphoma treatment 3. consider repeat urine culture after ertapenem course is complete to ensure test of cure 4. she will remain on fluconazole, acyclovir, and bactrim for prophylaxis in the setting of her B-Cell Lymphoma 07/01/17 08:54 Red Blood Count 3.08, Mean Corpuscular Volume 90.9, Mean Corpuscular Hemoglobin 29.5, Mean Corpuscular Hemoglobin Concent 32.5, Mean Platelet Volume 9.8, Neutrophils (%) (Auto) 76.5, Lymphocytes (%) (Auto) 10.6, Monocytes (%) (Auto) 11.1, Eosinophils (%) (Auto) 0.2, Basophils (%) (Auto) 0.0, Neutrophils # (Auto ) 3.38, Lymphocytes # (Auto) 0.47, Monocytes # (Auto) 0.49, Eosinophils # (Auto ) 0.01, Basophils # (Auto) 0.00 07/01/17 08:54 Test 07/01/17 08:54 07/01/17 17:17 White Blood Count 4.42 K/uL (4.8-10.8) Red Blood Count 3.08 M/uL (4.2-5.4) Hemoglobin 9.1 g/dL (12.0-16.0) Hematocrit 28.0 % (37-47) Mean Corpuscular Volume 90.9 fL (80-100) Mean Corpuscular Hemoglobin 29.5 pg (25-34) Mean Corpuscular Hemoglobin Concent 32.5 g/dl (32-36) Platelet Count 57 K/uL (130-400) Mean Platelet Volume 9.8 fL (7.4-10.4) Neutrophils (%) (Auto) 76.5 % Lymphocytes (%) (Auto) 10.6 % Monocytes (%) (Auto) 11.1 % Eosinophils (%) (Auto) 0.2 % Basophils (%) (Auto) 0.0 % Neutrophils # (Auto) 3.38 K/uL (1.4-6.5) Lymphocytes # (Auto) 0.47 K/uL (1.2-3.4) Monocytes # (Auto) 0.49 K/uL (0.11-0.59) Eosinophils # (Auto) 0.01 K/uL (0-0.5) Basophils # (Auto) 0.00 K/uL (0-0.2) RDW Standard Deviation 57.2 fL (36.4-46.3) RDW Coefficient of Variation 17.4 % (11.5-14.5) Immature Granulocyte % (Auto) 1.6 % Immature Granulocyte # (Auto) 0.07 K/uL (0.00-0.02) Toxic Granulation 1+ Anion Gap 5.0 mmol/L (3-11) Est Creatinine Clear Calc Drug Dose 67.0 ml/min Estimated GFR () 81.1 Estimated GFR (Non- 70.0 BUN/Creatinine Ratio 9.0 (10-20) Calcium Level 7.9 mg/dl (8.5-10.1) Phosphorus Level 3.6 mg/dl (2.5-4.9) Bedside Glucose 116 mg/dl (70-90) Total Time Spent: Greater than 30 minutes This includes examination of the patient, discharge planning, medication reconciliation, and communication with other providers. Discharge Instructions Please refer to the electronic Patient Visit Report (Discharge Instructions) for additional information. Follow-Up see Dr. Vu, oncology, within 5 days Additional Copies To Lucio Chen; Berenice Beltran. CHIVO; Andres Mark M.D.; Galindo Vu MD
[2017-07-07] MEDS ORDERED: PRED50TA PO (00:27)
== END 2017-07-01 17:50 | DRG 871 ==
LOC: EDBD 16:02 → C.EDC 16:03 → C.2T 19:31 → EEVIPCON 19:31 → ENRESERV 19:41 → C.4E 06-30 18:53
PROVIDERS: ADMIT Internal Medicine; ATTEND Internal Medicine
DX: A41.9 Sepsis, unspecified organism (principal); E43 Unspecified severe protein-calorie malnutrition; D61.810 Antineoplastic chemotherapy induced pancytopenia; N39.0 Urinary tract infection, site not specified; Z68.41 Body mass index [BMI] 40.0-44.9, adult; C81.90 Hodgkin lymphoma, unspecified, unspecified site; B96.20 Unspecified Escherichia coli [E. coli] as the cause of diseases classified elsewhere; I10 Essential (primary) hypertension; E11.9 Type 2 diabetes mellitus without complications; E66.01 Morbid (severe) obesity due to excess calories; E83.39 Other disorders of phosphorus metabolism; E87.6 Hypokalemia; R35.0 Frequency of micturition; G89.4 Chronic pain syndrome; E53.8 Deficiency of other specified B group vitamins; E88.09 Other disorders of plasma-protein metabolism, not elsewhere classified; D69.59 Other secondary thrombocytopenia; D70.1 Agranulocytosis secondary to cancer chemotherapy; Z79.84 Long term (current) use of oral hypoglycemic drugs; Z88.0 Allergy status to penicillin; Z88.8 Allergy status to other drugs, medicaments and biological substances; Z86.718 Personal history of other venous thrombosis and embolism; Z79.899 Other long term (current) drug therapy

== ENCOUNTER 2017-07-05 07:28 | Day surgery (SDC) | payer MEDICARE, OTHER ==
[~2017-07-05] VITALS: Ht 154.9 cm; Wt 109.0 kg
[2017-07-05] VITALS (11 sets, daily range): BP systolic 148–189; BP diastolic 57–76; PULSE 70–103; TEMP 36.6–36.7; O2SAT 92–98; Ht 154.9 cm; Wt 109.0 kg
[~2017-07-05 07:28] MED LIST changes: -BIOT1CAP3 PO; +BISA10SU3 PR; -BISA1TAB15 PO; -BISM262S7 PO; +CMPS25 PR; -DVN/160 PO; +ERTA1INJ IV; +FLV1 PO; -FNTTP50 TD; +LDDP5 TD; -LIDO2SOL19 TOP; -LIDOCAINE PATCH TOP; +LOSA100T65 PO; -LOSA1TAB38 PO; -LRS20 PO; -MULT-506 PO; +MULT-513 PO; +NITR1CAP16 PO; -NVLGI7030 SC; +OXYB10TA PO; -OXYB5TAB74 PO; -OXYC1TAB3 PO; -POLY335019 PO; +POTTAB2 PO; -PPTBS PO; -PRED-301 PO; -PROCHLORPERAZINE PO; -SODIENE PR; -VANC5CAP PO; -[UNRECOGNIZED DRUG - OTHER] RE
[2017-07-05] MEDS ORDERED: SULF800T23 PO (08:59)
[2017-07-05] MEDS ORDERED: PANT40TA PO (08:59)
[2017-07-05] MEDS ORDERED: SODIUM CHLORIDE 0.9% IT ONE (10:15)
[2017-07-05] MEDS ORDERED: METHOTREXATE SOD IT ONE (10:15)
--- NOTE | 2017-07-05 10:42 | Discharge Instructions ---
Discharge Instructions Procedure Procedure Date: Jul 05, 2017. Reason for visit: B-Cell Lymphoma. Discharge Discharge Date: Jul 05, 2017. Discharge Diagnosis: same Instructions Activity Recommendations: No limitations Return to School/Work: no limitations Recommended Home Diet: Resume Previous Diet Provider Instructions: ACTIVITY RECOMMENDATIONS: * Rest today. * Resume regular activity in one day. MEDICATIONS: * May take Tylenol or Ibuprofen as needed for pain. DIET: * Resume previous diet. SPECIAL CARE INSTRUCTIONS: Call your doctor if: * Temperature above 101 degrees F. * Pain not relieved by pain medicine ordered. * Increased drainage or redness from incision. * Notify your doctor with any questions or concerns. Call your doctor or go to the nearest Emergency Department if you experience: * Increased chest pain or shortness of breath. FOLLOW UP VISIT: Follow-up with Referring Physician as scheduled. Allergies Coded Allergies: Cephalosporins (Unverified Allergy, Intermediate, BREATHING PROBLEMS, ) Ciprofloxacin (Verified Allergy, Intermediate, RASH, 07/05/17) Phlebitis Penicillins (Verified Allergy, Mild, HIVES, 07/05/17) [place] Recommendations: Call your doctor if: * Temperature above 101 degrees * Pain not relieved by pain medicine ordered * There is increased drainage or redness from any incision * You have any unanswered questions or concerns. Your Doctors Instructions noted above were prepared by provider Quang Whittaker. Patient Signature Section: Patient Instructions Signature Page Ramonita Perez Patient (or Guardian) Signature/Date: I have read and understand the instructions given to me by my caregivers. Caregiver/RN/Doctor Signature/Date: The above-named patient and/or guardian has received patient instructions on this date. + Original Patient Signature Page (only) stays with chart. Please make copy for patient.
--- NOTE | 2017-07-05 11:01 | DIAGNOSTIC IMAGING REPORT ---
FLUOROSCOPICALLY GUIDED LUMBAR PUNCTURE CLINICAL HISTORY: B CELL LYMPHOMA FLUOROSCOPY TIME: 0.5 minutes. 2 fluoroscopic spot images submitted PROCEDURE: The procedure, risks and benefits were discussed with the patient including the risk of spinal headache, bleeding and infection. The patient agreed to the procedure and informed written consent was obtained. The procedure was performed by Dr. Whittaker following a timeout. The left L5-S1 interlaminar space was targeted. Skin overlying the space was prepped and draped in the usual sterile fashion and local anesthesia was achieved with 1% lidocaine. Under intermittent fluoroscopic guidance, a 20-gauge x 4.75 in. Sprotte needle was inserted into the thecal sac. A total of 10 cc of blood-tinged cerebral spinal fluid was obtained and spread amongst 4 vials. The patient tolerated the procedure well. There were no immediate complications. The specimens were sent to the laboratory at the request of the referring physician. Following removal of the CSF fluid, the patient's on-site oncologist, Dr. Vu, administered intrathecal chemotherapy. IMPRESSION: Successful fluoroscopic guided lumbar puncture with removal of 10 cc of blood-tinged cerebral spinal fluid. This is followed by administration of intrathecal chemotherapy by the patient's oncologist. No immediate complications. Electronically signed by: Quang Whittaker M.D. 07/05/2017 10:59 AM Dictated Date/Time: 07/05/2017 10:58 AM
[2017-07-05 11:23] LABS: CSF APPEARANCE CLOUDY; CSF COLOR PINK; CSF XANTHOCHROMIC NO XANTHOCHROMIA
[2017-07-07] MEDS ORDERED: PRED50TA PO (00:27)
== END 2017-07-05 15:10 | disposition home or self-care (01) ==
LOC: C.ACU 07:28
PROVIDERS: ATTEND Internal Medicine Hematology & Oncology
DX: C83.30 Diffuse large B-cell lymphoma, unspecified site (principal)

== ENCOUNTER 2017-07-10 23:43 | Inpatient (IN) | payer MEDICARE, OTHER ==
[~2017-07-10] VITALS: Ht 154.9 cm; Wt 107.9 kg
[~2017-07-10 23:43] MED LIST changes: +PRED50TA PO
--- NOTE | 2017-07-10 23:59 | EMERGENCY ROOM VISIT NOTE ---
History Report prepared by Porfirio: Jordan Mistry Under the Supervision of: Dr. Candido Ortiz M.D. First contact with patient: 23:46 Chief Complaint: FALL Stated Complaint: FALL History of Present Illness The patient is a 77 year old female who presents to the Emergency Room with complaints of a sudden fall occurring prior to arrival. The patient states that she got up to go to the bathroom using her walker, and the walker came out from under her and she fell and hit her head. The patient denies any loss of consciousness, chest pain, or neck pain. The patient states that she was in the hospital for the past two months. The patient additionally has a history of cancer, and she is on chemotherapy. The patient's platelets were 127 3 days ago , and her hemoglobin was 9.6. Source of History: patient Onset: prior to arrival Position: head, other (global) Quality: other (fall) Timing: other (sudden) Associated Symptoms: No LOC, No neck pain, No chest pain Review of Systems See HPI for pertinent positives & negatives. A total of 10 systems reviewed and were otherwise negative. Past Medical & Surgical Medical Problems: (1) E-coli UTI (2) Head injury (3) Leukocytosis (4) Lymphoma (5) Neutropenia (6) Neutropenic fever (7) Weakness Family History No pertinent family history Social History Smoking Status: Never Smoker Drug Use: none Marital Status: Occupation Status: retired Current/Historical Medications Scheduled Acyclovir (Zovirax), 200 MG PO TID Albuterol Hfa (Ventolin Hfa), 2 PUFFS INH QID Allopurinol (Zyloprim), 200 MG PO QPM Docusate Sodium (Docusate Sodium), 100 MG PO AMHS Dronabinol (Marinol), 2.5 MG PO QAM Fentanyl (Duragesic), 25 MCG TOP Q72H Fluconazole (Fluconazole), 100 MG PO QAM Fluticasone Propionate (Nasal) (Flonase Allergy Relief), 2 SPRAYS VIGNESH DAILY Folic Acid (Folic Acid), 1 MG PO QAM Furosemide (Lasix), 20 MG PO QAM Heparin Sodium (Porcine) Lock (Heparin Lock Flush), 5 ML IVF DAILY Hydrocodone/Acetaminophen 5MG/325MG ([place] 5MG/325MG), 1 TAB PO TID Lidocaine (Lidocaine), 1 PATCH TD QAM Losartan Potassium (Cozaar), 100 MG PO DAILY Multivitamins/Minerals (Mvi With Minerals), 1 TAB PO DAILY Nitrofurantoin Monohyd Macro (Macrobid), 1 CAP PO BID Ondansetron Hcl (Zofran), 8 MG PO BID Oxybutynin Chloride Er (Ditropan Xl), 10 MG PO QAM Pantoprazole (Protonix), 40 MG PO DAILY Pot Phosphate Monobasic W/ Sod (Phospha 250 Neutral), 1 TAB PO QID Potassium Ext Rel (Klor-Con), 40 MEQ PO DAILY Prednisone (Prednisone), 50 MG PO DAILY Sitagliptin Phosphate (Januvia), 100 MG PO QAM Sodium Chloride (Saline Flush), 10 ML IVF DAILY Sulfa/Trimethoprim (Bactrim Ds 800MG/160MG), 1 TAB PO 2XWK Scheduled PRN Acetaminophen (Tylenol), 500 MG PO Q4 PRN for MILD-MOD PAIN Albuterol Hfa (Ventolin Hfa), 2 PUFFS INH QID PRN for Wheezing Calcium Carbonate (Tums), 500 MG PO Q4 PRN for Indigestion Hydrocodone/Acetaminophen 5MG/325MG ([place] 5MG/325MG), 1 TABLET PO Q4 PRN for Pain Meclizine Hcl (Meclizine Hcl), 25 MG PO TID PRN for VERTIGO Ondansetron Hcl (Zofran), 4 MG PO Q6 PRN for Nausea Prochlorperazine (Compazine Supp), 25 MG [place] Q6H PRN for Nausea or Vomiting Sennosides-Docusate Sodium (Senna S), 1 TABS PO Q24H PRN for Constipation Allergies Coded Allergies: Cephalosporins (Unverified Allergy, Intermediate, BREATHING PROBLEMS, ) Ciprofloxacin (Verified Allergy, Intermediate, RASH, 07/05/17) Phlebitis Penicillins (Verified Allergy, Mild, HIVES, 07/05/17) Physical Exam Vital Signs Date Time Temp Pulse Resp B/P (MAP) Pulse Ox O2 Delivery O2 Flow Rate FiO2 07/11/17 03:16 87 18 160/90 98 Room Air 07/10/17 23:50 36.6 84 18 173/89 97 Room Air Physical Exam GENERAL: Patient is chronically unwell appearing and in minimal distress. Sleepy appearing. HEENT: Large bruise over the top of the left scalp and a bruise with abrasion over the right posterior scalp. Pupils are small but reactive. Normocephalic, mucous membranes moist, no nasal congestion, no scleral icterus. NECK: No stridor, no adenopathy, no meningismus, trachea is midline. LUNGS: No dyspnea. Clear to auscultation and equal bilaterally. No wheeze, no rhonchi. HEART: Regular rate and rhythm. No murmurs, rubs, gallops appreciated. ABDOMEN: Soft, nontender, bowel sounds positive, no masses appreciated, no peritonitis. BACK: No midline tenderness, no CVA tenderness EXTREMITIES: Mild bruising over both knees with full range of motion. Normal motion all extremities, no cyanosis, no edema. NEUROLOGIC: Alert and oriented, no acute motor or sensory deficits, no focal weakness, cranial nerves grossly intact. SKIN: No rash, no jaundice, no diaphoresis. Medical Decision & Procedures ER Provider Diagnostic Interpretation: Radiology results and stated below per my review and radiologist interpretation: CT HEAD: No acute intracranial hemorrhage or mass effect. Scalp soft tissue swelling. Paranasal sinuses and mastoid air cells are clear. CT C SPINE: No evidence of fracture or malalignment. Degenerative changes. C5-C6 and C6-C7, posterior osteophytes cause canal narrowing. Right internal jugular central venous catheter. Laboratory Results 07/11/17 01:42 Red Blood Count 2.44, Mean Corpuscular Volume 90.2, Mean Corpuscular Hemoglobin 29.5, Mean Corpuscular Hemoglobin Concent 32.7, Mean Platelet Volume 8.9 07/11/17 01:42 Test 07/11/17 01:42 White Blood Count 7.37 K/uL (4.8-10.8) Red Blood Count 2.44 M/uL (4.2-5.4) Hemoglobin 7.2 g/dL (12.0-16.0) Hematocrit 22.0 % (37-47) Mean Corpuscular Volume 90.2 fL (80-100) Mean Corpuscular Hemoglobin 29.5 pg (25-34) Mean Corpuscular Hemoglobin Concent 32.7 g/dl (32-36) Platelet Count 19 K/uL (130-400) Mean Platelet Volume 8.9 fL (7.4-10.4) RDW Standard Deviation 57.6 fL (36.4-46.3) RDW Coefficient of Variation 17.7 % (11.5-14.5) Neutrophils % (Manual) 99.1 % Lymphocytes % (Manual) 0.9 % Neutrophils # (Manual) 7.30 K/uL (1.4-6.5) Total Absolute Neutrophils 7.30 K/uL (1.4-6.5) Lymphocytes # (Manual) 0.07 K/uL (1.2-3.4) Total Absolute Lymphocytes 0.07 K/uL (1.2-3.4) Dohle Bodies 1+ Platelet Estimate SIGNIFIC DECREASED Anion Gap 9.0 mmol/L (3-11) Est Creatinine Clear Calc Drug Dose 55.7 ml/min Estimated GFR () 64.6 Estimated GFR (Non- 55.7 BUN/Creatinine Ratio 17.0 (10-20) Calcium Level 7.8 mg/dl (8.5-10.1) Laboratory results as reviewed by me. ED Course 2346: The patient was evaluated in room B6. A complete history and physical exam was performed. 0120: I reevaluated the patient, and the family requested labs to be checked prior to discharge. 0221: Discussed the patient's case with Dr. Santos. The patient will be evaluated for further treatment and disposition. 0224: The patient was agreeable to evaluation by a hospitalist. Medical Decision Differential diagnoses include: Closed head injury, concussion, skull fracture, intracranial injury, and cervical fracture. 77 yr old female being treated for Lymphoma arrives following mechanical fall striking head. CT head/neck negative. Contusions noted over head. Initially plan to hold of on labs given just normal a few days ago but then daughter felt we should. They are consistent with worsening of her pancytopenia. Plts at 19 and without active bleeding will hold off on transfusion for now. HgB <8 and will defer to hospitalist decision to transfuse. She is somewhat somnolent though I suspect this is medication induced but could be head injury as well. She does not appear septic nor does she have any significant complaints at this time. Medication Reconcilliation Current Medication List: was personally reviewed by me Blood Pressure Screening Patient's blood pressure: Elevated blood pressure Monitored by hospitalist Consults Time Called: [phone] Consulting Physician: Dr. Santos Returned Call: [phone] Discussed the patient's case with Dr. Santos. The patient will be evaluated for further treatment and disposition. Impression Primary Impression: Pancytopenia Additional Impressions: Head injury Somnolence Scribe Attestation The scribe's documentation has been prepared under my direction and personally reviewed by me in its entirety. I confirm that the note above accurately reflects all work, treatment, procedures, and medical decision making performed by me. Departure Information Dispostion Being Evaluated By Hospitalist Andres Buckley M.D. (PCP) Patient Instructions [facility] Problem Qualifiers
[2017-07-11] VITALS (12 sets, daily range): BP systolic 120–174; BP diastolic 71–86; PULSE 60–83; TEMP 36.4–36.8; O2SAT 93–98; Ht 154.9 cm; Wt 107.9 kg
[2017-07-11] MEDS ORDERED: ONDA8TAB6 PO (00:07)
[2017-07-11] MEDS ORDERED: HEPA10IN13 IVF (00:15)
[2017-07-11] MEDS ORDERED: HYDR-5688 PO (00:17)
[2017-07-11] MEDS ORDERED: VNTHFA/IN INH (00:24)
[2017-07-11] MEDS ORDERED: POTA20TA16 PO (00:25)
[2017-07-11] MEDS ORDERED: ONDA4TAB46 PO (00:28)
[2017-07-11] MEDS ORDERED: NSF10F IVF (00:29)
[2017-07-11 02:08] LABS: CALCIUM 7.8 mg/dl (8.5-10.1); CREATININE 0.99 mg/dl (0.60-1.20); POTASSIUM 4.5 mmol/L (3.5-5.1)
[2017-07-11 02:15] LABS: MEAN CELL VOLUME 90.2 fL (80-100); MEAN CORPUSCULAR HEMOGLOBIN 29.5 pg (25-34); MEAN CORPUSCULAR HGB CONC 32.7 g/dl (32-36); MEAN PLATELET VOLUME 8.9 fL (7.4-10.4); PLATELET COUNT 19 K/uL (130-400); RED BLOOD COUNT 2.44 M/uL (4.2-5.4); WHITE BLOOD COUNT 7.37 K/uL (4.8-10.8)
[2017-07-11 02:16] LABS: COMPLETE YES; DOHLE BODIES 1+; LYMPH ABS # 0.07 K/uL (1.2-3.4); LYMPHOCYTE % 0.9 %; NEUTROPHILS % 99.1 %; PLT ESTIMATE SIGNIFIC DECREASED
[2017-07-11] MEDS ORDERED: ZOLPIDEM TARTRATE 5 MG TAB PO PRN (03:30)
[2017-07-11] MEDS ORDERED: ACETAMINOPHEN 325 MG TAB PO PRN (03:30)
[2017-07-11] MEDS ORDERED: MECLIZINE HCL 25 MG TAB PO PRN (05:00)
[2017-07-11] MEDS ORDERED: CALCIUM CARBONATE 500 MG CHEWABLE PO PRN (05:00)
[2017-07-11] MEDS ORDERED: PROCHLORPERAZINE 25 MG SUPP PR PRN (05:00)
[2017-07-11] MEDS ORDERED: DOCUSATE SODIUM/SENNA 50/8.6MG TAB PO PRN (05:00)
[2017-07-11] MEDS ORDERED: ALBUTEROL HFA 8 GM INHALER INH PRN (05:00)
[2017-07-11] MEDS ORDERED: ONDANSETRON 4 MG TAB PO PRN (05:00)
--- NOTE | 2017-07-11 05:05 | History and Physical ---
History & Physical Date & Time of Service: Jul 11, 2017 at 04:45 Chief Complaint: Head Injury, Lymphoma, Neutropenia Primary Care Physician: No Doctor, Assigned History of Present Illness Source: patient, family, hospital records This is a 77 yo f suffering from lymphoma and is currently undergoing chemotherapy for treatment with her last treatment being four days prior. The patient was originally a transfer for MDRO UTI with right sided staghorn canaliculus in march of 2017 where she had profound leukocytosis and was diagnosed with lymphoma. She was transferred to [place] where her chemotherapy regimen was initiated. After every chemo treatment the patient has been suffering from profound pancytopenia requiring transfusions. She has been hospitalized many time for this and is currently discharged and staying at [facility]. This evening she was walking to the bathroom with her walker when she fell forward and bumped her head. She was transferred to the ED for evaluation. CT H&N were unremarkable however her PLT count is 19 and hgb is 7.8. After discussing admission versus close follow up in [facility] it was decided she would be admitted for further care in house considering her history. Past Medical/Surgical History 1. B-Cell Lymphoma 2. Hypokalemia, hypomagnesemia, hypophosphatemia - resolved 3. severe pancytopenia - resolving 4. neutropenia - resolved 5. T2DM 6. HTN 7. bilateral hip pain - suspect trochanteric bursitis +/- IT band tendonitis 8. severe protein calorie malnutrition 9. large left-sided staghorn renal stone 10. recurrent MDR e. coli UTIs 11. morbid obesity - BMI 44 12. h/o DVT s/p IVC filter 13. folic acid deficiency 14. severe deconditioning 15. chronic low back pain Family History No pertinent family history Social History Smoking Status: Never Smoker Smokeless Tobacco Use: No Alcohol Use: none Drug Use: none Marital Status: Housing status: lives with family Occupational Status: retired Multi-Drug Resistant Organisms History of MDRO: Yes Type of MDRO: other Allergies Coded Allergies: Cephalosporins (Unverified Allergy, Intermediate, BREATHING PROBLEMS, ) Ciprofloxacin (Verified Allergy, Intermediate, RASH, 07/05/17) Phlebitis Penicillins (Verified Allergy, Mild, HIVES, 07/05/17) Home Medications Scheduled Acyclovir (Zovirax), 200 MG PO TID Albuterol Hfa (Ventolin Hfa), 2 PUFFS INH QID Allopurinol (Zyloprim), 200 MG PO QPM Docusate Sodium (Docusate Sodium), 100 MG PO AMHS Dronabinol (Marinol), 2.5 MG PO QAM Fentanyl (Duragesic), 25 MCG TOP Q72H Fluconazole (Fluconazole), 100 MG PO QAM Fluticasone Propionate (Nasal) (Flonase Allergy Relief), 2 SPRAYS VIGNESH DAILY Folic Acid (Folic Acid), 1 MG PO QAM Furosemide (Lasix), 20 MG PO QAM Heparin Sodium (Porcine) Lock (Heparin Lock Flush), 5 ML IVF DAILY Hydrocodone/Acetaminophen 5MG/325MG ([place] 5MG/325MG), 1 TAB PO TID Lidocaine (Lidocaine), 1 PATCH TD QAM Losartan Potassium (Cozaar), 100 MG PO DAILY Multivitamins/Minerals (Mvi With Minerals), 1 TAB PO DAILY Nitrofurantoin Monohyd Macro (Macrobid), 1 CAP PO BID Ondansetron Hcl (Zofran), 8 MG PO BID Oxybutynin Chloride Er (Ditropan Xl), 10 MG PO QAM Pantoprazole (Protonix), 40 MG PO DAILY Pot Phosphate Monobasic W/ Sod (Phospha 250 Neutral), 1 TAB PO QID Potassium Ext Rel (Klor-Con), 40 MEQ PO DAILY Prednisone (Prednisone), 50 MG PO DAILY Sitagliptin Phosphate (Januvia), 100 MG PO QAM Sodium Chloride (Saline Flush), 10 ML IVF DAILY Sulfa/Trimethoprim (Bactrim Ds 800MG/160MG), 1 TAB PO 2XWK Scheduled PRN Acetaminophen (Tylenol), 500 MG PO Q4 PRN for MILD-MOD PAIN Albuterol Hfa (Ventolin Hfa), 2 PUFFS INH QID PRN for Wheezing Calcium Carbonate (Tums), 500 MG PO Q4 PRN for Indigestion Hydrocodone/Acetaminophen 5MG/325MG ([place] 5MG/325MG), 1 TABLET PO Q4 PRN for Pain Meclizine Hcl (Meclizine Hcl), 25 MG PO TID PRN for VERTIGO Ondansetron Hcl (Zofran), 4 MG PO Q6 PRN for Nausea Prochlorperazine (Compazine Supp), 25 MG [place] Q6H PRN for Nausea or Vomiting Sennosides-Docusate Sodium (Senna S), 1 TABS PO Q24H PRN for Constipation Review of Systems Constitutional: No fever Eyes: No worsening of vision ENT: No hearing loss Respiratory: No cough, No sputum, No wheezing, No shortness of breath, No dyspnea on exertion, No dyspnea at rest Cardiovascular: No chest pain Abdomen: + nausea, No pain, No vomiting, No diarrhea, No constipation Musculoskeletal: + muscle pain, + problem reported (back pain), No joint pain Genitourinary - Female: No dysuria Neurologic: + weakness, + balance problems, No numbness/tingling Psychiatric: + depression symptoms Endocrine: + fatigue Hematologic / Lymphatic: + abnormal bleeding/bruising Integumentary: No rash Physical Exam Vital Signs Date Time Temp Pulse Resp B/P (MAP) Pulse Ox O2 Delivery O2 Flow Rate FiO2 07/11/17 04:00 85 18 162/90 98 07/11/17 03:16 87 18 160/90 98 Room Air 07/10/17 23:50 36.6 84 18 173/89 97 Room Air General Appearance: no apparent distress Head: normocephalic, atraumatic Eyes: normal inspection ENT: normal ENT inspection Neck: supple Respiratory/Chest: normal breath sounds, no respiratory distress, no accessory muscle use Cardiovascular: regular rate, rhythm, no murmur Abdomen/GI: normal bowel sounds, non tender, soft, + pertinent finding (obese) Back: normal inspection, no CVA tenderness Extremities/Musculoskelatal: normal inspection, no calf tenderness, + pertinent finding (right LE swelling which is BL at +4, left LE stasis dermatitis and +3 swelling noted and is also BL) Neurologic/Psych: alert, normal mood/affect, oriented x 3 Skin: normal color, warm/dry, no rash Lymphatic: no adenopathy Diagnostics Laboratory Results Results Past 24 Hours Test 07/11/17 01:42 Range/Units White Blood Count 7.37 4.8-10.8 K/uL Red Blood Count 2.44 4.2-5.4 M/uL Hemoglobin 7.2 12.0-16.0 g/dL Hematocrit 22.0 37-47 % Mean Corpuscular Volume 90.2 80-100 fL Mean Corpuscular Hemoglobin 29.5 25-34 pg Mean Corpuscular Hemoglobin Concent 32.7 32-36 g/dl Platelet Count 19 130-400 K/uL Mean Platelet Volume 8.9 7.4-10.4 fL RDW Standard Deviation 57.6 36.4-46.3 fL RDW Coefficient of Variation 17.7 11.5-14.5 % Neutrophils % (Manual) 99.1 % Lymphocytes % (Manual) 0.9 % Neutrophils # (Manual) 7.30 1.4-6.5 K/uL Total Absolute Neutrophils 7.30 1.4-6.5 K/uL Lymphocytes # (Manual) 0.07 1.2-3.4 K/uL Total Absolute Lymphocytes 0.07 1.2-3.4 K/uL Dohle Bodies 1+ Platelet Estimate SIGNIFIC DECREASED Sodium Level 141 136-145 mmol/L Potassium Level 4.5 3.5-5.1 mmol/L Chloride Level 106 98-107 mmol/L Carbon Dioxide Level 26 21-32 mmol/L Anion Gap 9.0 3-11 mmol/L Blood Urea Nitrogen 17 7-18 mg/dl Creatinine 0.99 0.60-1.20 mg/dl Est Creatinine Clear Calc Drug Dose 55.7 ml/min Estimated GFR () 64.6 Estimated GFR (Non- 55.7 BUN/Creatinine Ratio 17.0 10-20 Random Glucose 220 70-99 mg/dl Calcium Level 7.8 8.5-10.1 mg/dl Impression Assessment and Plan This is a 77 yo f with a history of an aggressive B cell lymphoma requiring chemotherapy that is s/p head injury and pancytopenia Pancytopenia secondary to chemotherapy - recheck CBC in the am - Dr karma burks notes states that PLT transfuse for < 15 and p RBC for hgb < 8 s/p head injury in the presence of thrombocytopenia - CT was WNL but considering the thrombocytopenia will continue to monitor overnight Lymphoma - will defer hem/ onc consult for now unless continued drop in CBC - prophylaxis for immunosupp and multiple MDRO infections: fluconzaole, bactrim , acyclovir and nitrofurantoin - port on right side Diabetes - BSG AC HS - continue sitagliptin, if BSG > 180 consistently will consider adding insulin ISS HTN - continue losartan Neurogenic Bladder - continue oxybutinin LE swelling - continue 20 mg lasix Back pain/ left hip pain; chronic - using fentanyl and [place] regularly Vertigo - has a tendency to have vertigo after pills in am - continue meclizine DVT Prophylaxis - h/o dvt however pancytopenia; SCD Attending Addendum: I have physically seen and examined this patient, have supervised the medical residents activities, and agree with the H&P as noted above with the following exceptions as noted. The patient presents to emergency department after being noted at [facility] to have fallen forward and bumped her head when she was walking with her walker to the bathroom. The patient denies chest pain, palpitations, shortness of breath, cough, lower extremity swelling, vision change, sore throat, fevers, chills, sweats, nausea, vomiting, abdominal pain, pelvic pain, blood in urine or stool, dysuria, urinary frequency or urgency, focal weakness, neck pain, night sweats, or allergy symptoms. The review of systems is otherwise negative other than for that already noted above, and at least 10 systems have been reviewed. The patient is awake, well-developed and adequately nourished, alert and oriented 3, normocephalic and atraumatic, lying in bed and in no acute distress. HEENT--PERRL, EOMI, mucous membranes and oropharynx dry. Neck--supple, no JVD or bruits, thyroid normal, trachea midline, no adenopathy. Heart--normal S1 and S2, no extra beats, no murmurs, rubs or gallops. Lungs--clear bilaterally with good air movement, no respiratory distress, no accessory muscle use. Abdomen--normal bowel sounds and soft, nontender and nondistended, and obese. Extremities--no cyanosis, clubbing or edema. There are good distal pulses b/l. Dermatologic--normal skin turgor, normal color, warm and dry, no abnormal lymph nodes, no rash. Neurologic--cranial nerves II through XII grossly intact, motor and sensory examination normal. Rheumatologic--normal range of motion, nontender, muscles and joints. Psychiatric--normal affect. Assessment and Plan: 1. Head trauma status post fall/thrombocytopenia--the patient will be admitted for serial laboratories, and close clinical monitoring with neuro checks. 2. Pancytopenia secondary to chemotherapy for lymphoma--continue usual preventative medications fluconazole, Bactrim, acyclovir and nitrofurantoin. Level of Care Med/Surg Advanced Directives Existing Advance Directive: No Resuscitation Status FULL RESUSCITATION VTE Prophylaxis VTE Risk Assessment Done? Y/N: Yes Risk Level: Moderate Given or contraindicated: SCD's Social Service Consult Lives in Alf, Cancer Patient Under [place] Note Total Time: Critical Care 30 - 74 minutes
[2017-07-11] MEDS: FENTANYL 25 MCG/HR TDSY TD SCH (05:41)
[2017-07-11] MEDS: FENTANYL PATCH REMOVE & WASTE SCH (05:41)
--- NOTE | 2017-07-11 07:04 | DIAGNOSTIC IMAGING REPORT ---
CT SCAN OF THE CERVICAL SPINE CLINICAL HISTORY: Head injury. COMPARISON STUDY: No priors. TECHNIQUE: CT scan of the cervical spine is performed from the skull base to the upper thoracic spine. Images are reviewed in the axial, sagittal, and coronal planes. IV contrast was not administered for this examination. A dose lowering technique was utilized adhering to the principles of ALARA. CT DOSE: 983.12 mGy.cm FINDINGS: Skeletal structures: The skeletal structures are osteopenic. There is no evidence of fracture or subluxation involving the cervical spine. Vertebral body height and alignment are maintained. The odontoid process and lateral masses are intact. The atlantoaxial articulation is preserved noting advanced productive degenerative change. The spinous processes appear intact. There is mild to moderate multilevel cervical spondylosis. Uncovertebral and facet arthropathy are seen at several levels. Intervertebral discs: There is mild disc space narrowing seen in the mid to lower cervical region. Central canal: Large posterior disc osteophyte complexes at C4-C5, C5-C6, and C6-C7 likely contribute to acquired compromise of the central canal. Soft tissues: The prevertebral and paraspinous soft tissues are within normal limits. A right internal jugular central venous catheter is in place. Calvarium: The visualized calvarium at the skull base appears intact. Brain parenchyma: Partially visualized brain parenchyma the skull base is within normal limits noting age-related involutional change. Sinuses and mastoids: The visualized paranasal sinuses are clear. The mastoid air cells are well pneumatized. Lung apices: Clear as visualized. IMPRESSION: 1. There is no evidence of fracture or subluxation involving the cervical spine. 2. Osteopenia and spondylotic change as above. Electronically signed by: Charlie Elmore M.D. 07/11/2017 7:03 AM Dictated Date/Time: 07/11/2017 7:00 AM
--- NOTE | 2017-07-11 07:15 | DIAGNOSTIC IMAGING REPORT ---
HEAD WITHOUT CONTRAST (CT) CT DOSE: HISTORY: Trauma head trauma. TECHNIQUE: Multiaxial CT images of the head were performed without the use of intravenous contrast. A dose lowering technique was utilized adhering to the principles of ALARA. Comparison: 04/21/2017 Findings: The paranasal sinuses and mastoid air cells are clear. The calvarium and skull base are intact. The ventricles and sulci are within normal limits. There is no mass, hematoma, midline shift, or acute infarct. Impression: No acute intracranial abnormality. The above report was generated using voice recognition software. It may contain grammatical, syntax or spelling errors. Electronically signed by: Yoandy Nicolas M.D. 07/11/2017 7:13 AM Dictated Date/Time: 07/11/2017 7:12 AM
[2017-07-11 07:39] LABS: BUN/CREATININE RATIO 17.7 (10-20); CALCIUM 7.8 mg/dl (8.5-10.1); CREATININE 0.84 mg/dl (0.60-1.20); POTASSIUM 4.1 mmol/L (3.5-5.1)
[2017-07-11 07:57] LABS: HEMATOCRIT 20.6 % (37-47); MEAN CELL VOLUME 90.4 fL (80-100); MEAN CORPUSCULAR HEMOGLOBIN 29.4 pg (25-34); MEAN CORPUSCULAR HGB CONC 32.5 g/dl (32-36); MEAN PLATELET VOLUME 9.2 fL (7.4-10.4); PLATELET COUNT 17 K/uL (130-400); RED BLOOD COUNT 2.28 M/uL (4.2-5.4); WHITE BLOOD COUNT 5.81 K/uL (4.8-10.8)
[2017-07-11 08:03] LABS: ANISOCYTOSIS PRESENT; COMPLETE YES; HYPERSEGMENTED POLYS 1+; LYMPH ABS # 0.05 K/uL (1.2-3.4); LYMPHOCYTE % 0.9 %; NEUTROPHILS % 99.1 %; PLT ESTIMATE SIGNIFIC DECREASED
[2017-07-11] MEDS: CHECK FENTANYL PATCH PLACEMENT SCH ×3 (10:15→23:46)
[2017-07-11] MEDS: LOSARTAN POTASSIUM 50 MG TAB PO SCH (10:19)
[2017-07-11] MEDS: DOCUSATE SODIUM 100 MG CAP PO SCH ×2 (10:19→20:00)
[2017-07-11] MEDS: FLUTICASONE PROPIONATE NA SPR 16 GM BTL NAE SCH (10:19)
[2017-07-11] MEDS: FLUCONAZOLE 100 MG TAB PO SCH (10:20)
[2017-07-11] MEDS: OXYBUTYNIN CHLORIDE 5 MG TABCR PO SCH (10:20)
[2017-07-11] MEDS: SITAGLIPTIN 100 MG TAB PO SCH (10:20)
[2017-07-11] MEDS: NITROFURANTOIN MONOHYDRATE 100 MG CAP PO SCH ×2 (10:21→21:09)
[2017-07-11] MEDS: POTASSIUM CHLORIDE 20 MEQ TABCR PO SCH (10:21)
[2017-07-11] MEDS: CEROVITE ADV FORMULA TAB PO SCH (10:21)
[2017-07-11] MEDS: DRONABINOL 2.5 MG CAP PO SCH (10:21)
[2017-07-11] MEDS: FUROSEMIDE 20 MG TAB PO SCH (10:21)
[2017-07-11] MEDS: HYDROCODONE/ACETAMOPHEN 5/325MG TAB PO SCH ×3 (10:21→20:00)
[2017-07-11] MEDS: ONDANSETRON 8 MG TAB PO SCH ×2 (10:22→21:09)
[2017-07-11] MEDS: ACYCLOVIR 200 MG CAP PO SCH ×3 (10:22→21:10)
[2017-07-11] MEDS: POT PHOSPHATE MONOBASIC W/ SOD TAB PO SCH ×4 (10:22→21:08)
[2017-07-11] MEDS: SULFAMETHOXAZOLE/TRIMETHOPRIM DS 800/160MG TAB PO SCH (10:22)
[2017-07-11] MEDS: PANTOprazole SOD 40 MG TAB PO SCH (10:22)
[2017-07-11] MEDS: ALBUTEROL HFA 8 GM INHALER INH SCH ×4 (10:23→20:00)
[2017-07-11] MEDS: LIDODERM (LIDOCAINE) PATCH 5% TD SCH (10:23)
[2017-07-11] MEDS: SODIUM CHLORIDE 0.9% 10ML FLUSH IV SCH (12:15)
[2017-07-11] MEDS ORDERED: FUROSEMIDE 20 MG TAB PO ONE (15:00)
--- NOTE | 2017-07-11 16:14 | Oncology Consultation ---
Oncology/Heme Consultation Date of Consultation: Jul 11, 2017. Attending Physician: Koffi Gupta D.O. Reason for Consultation: Fall with head trauma High-grade Non-Hodgkin lymphoma Anemia and thrombocytopenia History of Present Illness Ms. Perez is a 77 year old woman with a high-grade non-Hodgkin lymphoma with bone marrow involvement. She has been undergoing chemotherapy that has been complicated by refractory cytopenias. This has led to frequent hospitalizations throughout her treatment course. She received her fourth cycle (second of R-CHOP , after 2 cycles of DA-EPOCH-R) on 07/07. She was brought in emergently last night after a fall that resulted in a head trauma. She states that her walker shifted under her as she was trying to sit on the toilet. However, she also reports that "I just went down." She denies any dizziness or palpitations prior. She also had no shortness of breath, DAHL, or chest pain. She denies any obvious bleeding. Past Medical/Surgical History Medical Problems: (1) Head injury Status: Acute (2) Hypokalemia Status: Acute (3) Hypomagnesemia Status: Acute (4) Neutropenia Status: Acute (5) Pancytopenia Status: Acute (6) Pancytopenia Status: Acute (7) Pancytopenia Status: Acute (8) Sepsis Status: Acute (9) Somnolence Status: Acute (10) UTI (urinary tract infection) Status: Acute Family History No pertinent family history Social History Smoking Status: Never Smoker Smokeless Tobacco Use: No Alcohol Use: none Drug Use: none Marital Status: Occupation Status: retired Allergies Coded Allergies: Cephalosporins (Unverified Allergy, Intermediate, BREATHING PROBLEMS, ) Ciprofloxacin (Verified Allergy, Intermediate, RASH, 07/05/17) Phlebitis Penicillins (Verified Allergy, Mild, HIVES, 07/05/17) Home Medications Scheduled Acyclovir (Zovirax), 200 MG PO TID Albuterol Hfa (Ventolin Hfa), 2 PUFFS INH QID Allopurinol (Zyloprim), 200 MG PO QPM Docusate Sodium (Docusate Sodium), 100 MG PO AMHS Dronabinol (Marinol), 2.5 MG PO QAM Fentanyl (Duragesic), 25 MCG TOP Q72H Fluconazole (Fluconazole), 100 MG PO QAM Fluticasone Propionate (Nasal) (Flonase Allergy Relief), 2 SPRAYS VIGNESH DAILY Folic Acid (Folic Acid), 1 MG PO QAM Furosemide (Lasix), 20 MG PO QAM Heparin Sodium (Porcine) Lock (Heparin Lock Flush), 5 ML IVF DAILY Hydrocodone/Acetaminophen 5MG/325MG ([place] 5MG/325MG), 1 TAB PO TID Lidocaine (Lidocaine), 1 PATCH TD QAM Losartan Potassium (Cozaar), 100 MG PO DAILY Multivitamins/Minerals (Mvi With Minerals), 1 TAB PO DAILY Nitrofurantoin Monohyd Macro (Macrobid), 1 CAP PO BID Ondansetron Hcl (Zofran), 8 MG PO BID Oxybutynin Chloride Er (Ditropan Xl), 10 MG PO QAM Pantoprazole (Protonix), 40 MG PO DAILY Pot Phosphate Monobasic W/ Sod (Phospha 250 Neutral), 1 TAB PO QID Potassium Ext Rel (Klor-Con), 40 MEQ PO DAILY Prednisone (Prednisone), 50 MG PO DAILY Sitagliptin Phosphate (Januvia), 100 MG PO QAM Sodium Chloride (Saline Flush), 10 ML IVF DAILY Sulfa/Trimethoprim (Bactrim Ds 800MG/160MG), 1 TAB PO 2XWK Scheduled PRN Acetaminophen (Tylenol), 500 MG PO Q4 PRN for MILD-MOD PAIN Albuterol Hfa (Ventolin Hfa), 2 PUFFS INH QID PRN for Wheezing Calcium Carbonate (Tums), 500 MG PO Q4 PRN for Indigestion Hydrocodone/Acetaminophen 5MG/325MG ([place] 5MG/325MG), 1 TABLET PO Q4 PRN for Pain Meclizine Hcl (Meclizine Hcl), 25 MG PO TID PRN for VERTIGO Ondansetron Hcl (Zofran), 4 MG PO Q6 PRN for Nausea Prochlorperazine (Compazine Supp), 25 MG [place] Q6H PRN for Nausea or Vomiting Sennosides-Docusate Sodium (Senna S), 1 TABS PO Q24H PRN for Constipation Current Inpatient Medications Current Inpatient Medications Medications (Trade) Dose Ordered Sig/[place] Route Start Time Stop Time Status Last Admin Dose Admin Zolpidem Tartrate (Ambien Tab) 5 mg HSZ PRN PO 07/11/17 03:30 08/10/17 03:29 Ondansetron HCl (Zofran Inj) 4 mg Q6H PRN IV 07/11/17 03:30 08/10/17 03:29 Acetaminophen (Tylenol Tab) 500 mg Q4 PRN PO 07/11/17 05:00 08/10/17 04:59 Acyclovir (Zovirax Cap) 200 mg TID PO 07/11/17 08:00 08/10/17 07:59 07/11/17 14:38 200 MG Albuterol (Ventolin Hfa Inhaler) 2 puffs QID INH 07/11/17 08:00 08/10/17 07:59 Allopurinol (Zyloprim Tab) 200 mg QPM PO 07/11/17 21:00 08/10/17 20:59 Calcium Carbonate (Tums Chew Tab) 500 mg Q4 PRN PO 07/11/17 05:00 08/10/17 04:59 Docusate Sodium (coLACE CAP) 100 mg AMHS PO 07/11/17 08:00 08/10/17 07:59 07/11/17 10:19 100 MG Dronabinol (Marinol Cap) 2.5 mg QAM PO 07/11/17 08:00 08/10/17 07:59 07/11/17 10:21 2.5 MG Fentanyl (Duragesic Patch) 25 mcg Q72H TD 07/11/17 06:00 07/25/17 05:59 07/11/17 05:41 25 MCG Fluconazole (Diflucan Tab) 100 mg QAM PO 07/11/17 08:00 08/10/17 07:59 07/11/17 10:20 100 MG Fluticasone Propionate (Flonase Nasal [place]) 2 sprays DAILY VIGNESH 07/11/17 08:00 08/10/17 07:59 07/11/17 10:19 2 SPRAYS Folic Acid (Folvite Tab) 1 mg QAM PO 07/11/17 08:00 08/10/17 07:59 07/11/17 10:20 1 MG Furosemide (Lasix Tab) 20 mg QAM PO 07/11/17 08:00 08/10/17 07:59 07/11/17 10:21 20 MG Heparin Sodium (Porcine) (Heparin 10 Unit/ ml 5 ml Flush) 5 ml DAILY FLUSH 07/11/17 08:00 08/10/17 07:59 Acetaminophen/ Hydrocodone Bitart ([place] 5/325 Tab) 1 tab TID PO 07/11/17 08:00 07/25/17 07:59 07/11/17 10:21 1 TAB Acetaminophen/ Hydrocodone Bitart ([place] 5/325 Tab) 1 tab Q4 PRN PO 07/11/17 05:00 07/25/17 04:59 Lidocaine (Lidoderm Patch 5%) 1 patch QAM TD 07/11/17 08:00 08/10/17 07:59 Losartan Potassium (coZAAR TAB) 100 mg DAILY PO 07/11/17 08:00 08/10/17 07:59 07/11/17 10:19 100 MG Meclizine HCl (Antivert Tab) 25 mg TID PRN PO 07/11/17 05:00 08/10/17 04:59 Multivitamins/ Minerals (Multivitamin W/ Minerals Tab) 1 tab DAILY PO 07/11/17 08:00 08/10/17 07:59 07/11/17 10:21 1 TAB Nitrofurantoin Macrocrystals (Macrobid Cap) 100 mg BID PO 07/11/17 08:00 08/10/17 07:59 07/11/17 10:21 100 MG Ondansetron HCl (Zofran Tab) 4 mg Q6 PRN PO 07/11/17 05:00 08/10/17 04:59 Ondansetron HCl (Zofran Tab) 8 mg BID PO 07/11/17 08:00 08/10/17 07:59 07/11/17 10:22 8 MG Oxybutynin Chloride (Ditropan-Xl Tab) 10 mg QAM PO 07/11/17 08:00 08/10/17 07:59 07/11/17 10:20 10 MG Pantoprazole Sodium (Protonix Tab) 40 mg DAILY PO 07/11/17 08:00 08/10/17 07:59 07/11/17 10:22 40 MG Potassium/ Phosphorus/Sodium (Phospha 250 Neutral 155-852-130 Mg) 1 tab QID PO 07/11/17 08:00 08/10/17 07:59 07/11/17 14:38 1 TAB Potassium Chloride (Klor-Con Tab) 40 meq DAILY PO 07/11/17 08:00 08/10/17 07:59 07/11/17 10:21 40 MEQ Prednisone (PredniSONE TAB) 50 mg DAILY PO 07/11/17 08:00 08/10/17 07:59 07/11/17 10:22 50 MG Prochlorperazine (Compazine Supp) 25 mg Q6H PRN AK 07/11/17 05:00 08/10/17 04:59 Senna/Docusate Sodium (Senokot S Tab) 1 tab Q24H PRN PO 07/11/17 05:00 08/10/17 04:59 Sitagliptin Phosphate (Januvia Tab) 100 mg QAM PO 07/11/17 08:00 08/10/17 07:59 07/11/17 10:20 100 MG Sodium Chloride (Sodium Chloride 0.9% 10 ml Flush) 10 ml DAILY IV 07/11/17 08:00 08/10/17 07:59 Trimethoprim/ Sulfamethoxazole (Septra Ds 800/ 160MG Tab) 1 tab MoTh@0800 PO 07/11/17 08:00 08/10/17 07:59 07/11/17 10:22 1 TAB Miscellaneous (Fentanyl Patch Remove & Waste) 1 ea Q3D N/A 07/11/17 05:59 08/10/17 05:58 07/11/17 05:41 1 EA Miscellaneous Information (Check Fentanyl Patch Placement) 1 ea QS N/A 07/11/17 08:00 08/10/17 07:59 07/11/17 10:15 1 EA Miscellaneous (Remove Lidoderm Patch) 1 ea DAILY@21 N/A 07/11/17 21:00 08/10/17 20:59 Review of Systems Constitutional: + weakness, + fatigue, No fever, No chills Eyes: No worsening of vision ENT: No unusual epistaxis Respiratory: No cough, No shortness of breath Cardiovascular: No chest pain, No palpitations Abdomen: No pain, No nausea, No GI bleeding Genitourinary - Female: No dysuria, No hematuria Hematologic / Lymphatic: No abnormal bleeding/bruising, No night sweats Physical Exam Date Time Temp Pulse Resp B/P (MAP) Pulse Ox O2 Delivery O2 Flow Rate FiO2 07/11/17 14:04 Room Air 07/11/17 07:18 36.6 75 16 120/71 (87) 97 Room Air 07/11/17 05:05 Room Air 07/11/17 04:46 36.6 83 18 170/86 (114) 97 Room Air 07/11/17 04:00 85 18 162/90 98 07/11/17 03:16 87 18 160/90 98 Room Air 07/10/17 23:50 36.6 84 18 173/89 97 Room Air General Appearance: no apparent distress, + obese, + pertinent finding ( chronically ill appearing) Head: + evidence of trama (large ecchymosis over her left forehead) Eyes: normal inspection, EOMI Respiratory/Chest: lungs clear, no respiratory distress Cardiovascular: regular rate, rhythm Abdomen/GI: non tender, soft Extremities/Musculoskelatal: + pedal edema Neurologic/Psych: alert, oriented x 3 Skin: no rash Laboratory Results Last 24 Hours Test 07/11/17 01:42 07/11/17 06:45 07/11/17 07:45 07/11/17 11:35 White Blood Count 7.37 K/uL 5.81 K/uL Red Blood Count 2.44 M/uL 2.28 M/uL Hemoglobin 7.2 g/dL 6.7 g/dL Hematocrit 22.0 % 20.6 % Mean Corpuscular Volume 90.2 fL 90.4 fL Mean Corpuscular Hemoglobin 29.5 pg 29.4 pg Mean Corpuscular Hemoglobin Concent 32.7 g/dl 32.5 g/dl Platelet Count 19 K/uL 17 K/uL Mean Platelet Volume 8.9 fL 9.2 fL RDW Standard Deviation 57.6 fL 57.0 fL RDW Coefficient of Variation 17.7 % 17.5 % Neutrophils % (Manual) 99.1 % 99.1 % Lymphocytes % (Manual) 0.9 % 0.9 % Neutrophils # (Manual) 7.30 K/uL 5.76 K/uL Total Absolute Neutrophils 7.30 K/uL 5.76 K/uL Lymphocytes # (Manual) 0.07 K/uL 0.05 K/uL Total Absolute Lymphocytes 0.07 K/uL 0.05 K/uL Dohle Bodies 1+ Platelet Estimate SIGNIFIC DECREASED SIGNIFIC DECREASED Sodium Level 141 mmol/L 141 mmol/L Potassium Level 4.5 mmol/L 4.1 mmol/L Chloride Level 106 mmol/L 106 mmol/L Carbon Dioxide Level 26 mmol/L 30 mmol/L Anion Gap 9.0 mmol/L 5.0 mmol/L Blood Urea Nitrogen 17 mg/dl 15 mg/dl Creatinine 0.99 mg/dl 0.84 mg/dl Est Creatinine Clear Calc Drug Dose 55.7 ml/min 65.7 ml/min Estimated GFR () 64.6 78.8 Estimated GFR (Non- 55.7 68.0 BUN/Creatinine Ratio 17.0 17.7 Random Glucose 220 mg/dl 140 mg/dl Calcium Level 7.8 mg/dl 7.8 mg/dl Hypersegmented Polys 1+ Anisocytosis PRESENT Bedside Glucose 149 mg/dl 147 mg/dl Assessment & Plan Ms. Perez sustained a head injury after a fall [facility] CTs revealed no evidence of fractures, intracranial hemorrhage, or C-spine injury. Her platelets are low, likely secondary to chemo. She is also anemic. While this may be related to chemo, her drop is somewhat precipitous. She denies any evidence of rectal bleeding, but I would check a stool occult blood just to be safe, particularly given her low platelets. I agree with the plan for a RBC transfusion. If her platelets fall below 15K, I would give her a platelet transfusion as well. Otherwise, I would continue with supportive care and rehab as tolerated. She is a few days out from the usual rojas of her WBCs following chemo, so it would be expected that her WBCs may continue to fall over the next few days. She was treated with Neulasta and does not require additional GCSF support if such a fall does take place.
--- NOTE | 2017-07-11 17:53 | Family Medicine Progress Note ---
Progress Note Date of Service Jul 11, 2017. Subjective Pt evaluation today including: conversation w/ patient, physical exam, lab review Pain: denies Voiding: no voiding problems Patient was seen at the bedside. She denies any complaints. Denies SOB, chest pain, headache or any other symptoms. She states that she was on physical therapy for past few days and was doing well. Constitutional: No fever Respiratory: No cough, No shortness of breath Cardiovascular: No chest pain Abdomen: No pain, No nausea, No vomiting, No diarrhea Musculoskeletal: + swelling (b/l LE), No muscle pain Female : No dysuria Skin: No rash Medications Current Inpatient Medications Medications (Trade) Dose Ordered Sig/[place] Route Start Time Stop Time Status Last Admin Dose Admin Zolpidem Tartrate (Ambien Tab) 5 mg HSZ PRN PO 07/11/17 03:30 08/10/17 03:29 Ondansetron HCl (Zofran Inj) 4 mg Q6H PRN IV 07/11/17 03:30 08/10/17 03:29 Acetaminophen (Tylenol Tab) 500 mg Q4 PRN PO 07/11/17 05:00 08/10/17 04:59 Acyclovir (Zovirax Cap) 200 mg TID PO 07/11/17 08:00 08/10/17 07:59 07/11/17 14:38 200 MG Albuterol (Ventolin Hfa Inhaler) 2 puffs QID INH 07/11/17 08:00 08/10/17 07:59 Allopurinol (Zyloprim Tab) 200 mg QPM PO 07/11/17 21:00 08/10/17 20:59 Calcium Carbonate (Tums Chew Tab) 500 mg Q4 PRN PO 07/11/17 05:00 08/10/17 04:59 Docusate Sodium (coLACE CAP) 100 mg AMHS PO 07/11/17 08:00 08/10/17 07:59 07/11/17 10:19 100 MG Dronabinol (Marinol Cap) 2.5 mg QAM PO 07/11/17 08:00 08/10/17 07:59 07/11/17 10:21 2.5 MG Fentanyl (Duragesic Patch) 25 mcg Q72H TD 07/11/17 06:00 07/25/17 05:59 07/11/17 05:41 25 MCG Fluconazole (Diflucan Tab) 100 mg QAM PO 07/11/17 08:00 08/10/17 07:59 07/11/17 10:20 100 MG Fluticasone Propionate (Flonase Nasal [place]) 2 sprays DAILY VIGNESH 07/11/17 08:00 08/10/17 07:59 07/11/17 10:19 2 SPRAYS Folic Acid (Folvite Tab) 1 mg QAM PO 07/11/17 08:00 08/10/17 07:59 07/11/17 10:20 1 MG Furosemide (Lasix Tab) 20 mg QAM PO 07/11/17 08:00 08/10/17 07:59 07/11/17 10:21 20 MG Heparin Sodium (Porcine) (Heparin 10 Unit/ ml 5 ml Flush) 5 ml DAILY FLUSH 07/11/17 08:00 08/10/17 07:59 Acetaminophen/ Hydrocodone Bitart ([place] 5/325 Tab) 1 tab TID PO 07/11/17 08:00 07/25/17 07:59 07/11/17 10:21 1 TAB Acetaminophen/ Hydrocodone Bitart ([place] 5/325 Tab) 1 tab Q4 PRN PO 07/11/17 05:00 07/25/17 04:59 Lidocaine (Lidoderm Patch 5%) 1 patch QAM TD 07/11/17 08:00 08/10/17 07:59 Losartan Potassium (coZAAR TAB) 100 mg DAILY PO 07/11/17 08:00 08/10/17 07:59 07/11/17 10:19 100 MG Meclizine HCl (Antivert Tab) 25 mg TID PRN PO 07/11/17 05:00 08/10/17 04:59 Multivitamins/ Minerals (Multivitamin W/ Minerals Tab) 1 tab DAILY PO 07/11/17 08:00 08/10/17 07:59 07/11/17 10:21 1 TAB Nitrofurantoin Macrocrystals (Macrobid Cap) 100 mg BID PO 07/11/17 08:00 08/10/17 07:59 07/11/17 10:21 100 MG Ondansetron HCl (Zofran Tab) 4 mg Q6 PRN PO 07/11/17 05:00 08/10/17 04:59 Ondansetron HCl (Zofran Tab) 8 mg BID PO 07/11/17 08:00 08/10/17 07:59 07/11/17 10:22 8 MG Oxybutynin Chloride (Ditropan-Xl Tab) 10 mg QAM PO 07/11/17 08:00 08/10/17 07:59 07/11/17 10:20 10 MG Pantoprazole Sodium (Protonix Tab) 40 mg DAILY PO 07/11/17 08:00 08/10/17 07:59 07/11/17 10:22 40 MG Potassium/ Phosphorus/Sodium (Phospha 250 Neutral 155-852-130 Mg) 1 tab QID PO 07/11/17 08:00 08/10/17 07:59 07/11/17 14:38 1 TAB Potassium Chloride (Klor-Con Tab) 40 meq DAILY PO 07/11/17 08:00 08/10/17 07:59 07/11/17 10:21 40 MEQ Prednisone (PredniSONE TAB) 50 mg DAILY PO 07/11/17 08:00 08/10/17 07:59 07/11/17 10:22 50 MG Prochlorperazine (Compazine Supp) 25 mg Q6H PRN CA 07/11/17 05:00 08/10/17 04:59 Senna/Docusate Sodium (Senokot S Tab) 1 tab Q24H PRN PO 07/11/17 05:00 08/10/17 04:59 Sitagliptin Phosphate (Januvia Tab) 100 mg QAM PO 07/11/17 08:00 08/10/17 07:59 07/11/17 10:20 100 MG Sodium Chloride (Sodium Chloride 0.9% 10 ml Flush) 10 ml DAILY IV 07/11/17 08:00 08/10/17 07:59 Trimethoprim/ Sulfamethoxazole (Septra Ds 800/ 160MG Tab) 1 tab MoTh@0800 PO 07/11/17 08:00 08/10/17 07:59 07/11/17 10:22 1 TAB Miscellaneous (Fentanyl Patch Remove & Waste) 1 ea Q3D N/A 07/11/17 05:59 08/10/17 05:58 07/11/17 05:41 1 EA Miscellaneous Information (Check Fentanyl Patch Placement) 1 ea QS N/A 07/11/17 08:00 08/10/17 07:59 07/11/17 16:08 1 EA Miscellaneous (Remove Lidoderm Patch) 1 ea DAILY@21 N/A 07/11/17 21:00 08/10/17 20:59 Objective Vital Signs Date Time Temp Pulse Resp B/P (MAP) Pulse Ox O2 Delivery O2 Flow Rate FiO2 07/11/17 16:07 36.8 68 18 154/81 (105) 93 Room Air 07/11/17 14:04 Room Air 07/11/17 07:18 36.6 75 16 120/71 (87) 97 Room Air 07/11/17 05:05 Room Air 07/11/17 04:46 36.6 83 18 170/86 (114) 97 Room Air 07/11/17 04:00 85 18 162/90 98 07/11/17 03:16 87 18 160/90 98 Room Air 07/10/17 23:50 36.6 84 18 173/89 97 Room Air Physical Exam General Appearance: WD/WN, no apparent distress, + obese Neck: supple, trachea midline Respiratory/Chest: chest non-tender, lungs clear, normal breath sounds, no respiratory distress, no accessory muscle use Cardiovascular: regular rate, rhythm Abdomen: normal bowel sounds, non tender, soft Extremities: non-tender, no calf tenderness, + pedal edema (b/l 2+ pitting edema of LE R>L) Neurologic/Psychiatric: alert, normal mood/affect, oriented x 3 Skin: normal color, warm/dry, no rash Laboratory Results Results Past 24 Hours Test 07/11/17 01:42 07/11/17 06:45 07/11/17 07:45 07/11/17 11:35 Range/Units White Blood Count 7.37 5.81 4.8-10.8 K/uL Red Blood Count 2.44 2.28 4.2-5.4 M/uL Hemoglobin 7.2 6.7 12.0-16.0 g/dL Hematocrit 22.0 20.6 37-47 % Mean Corpuscular Volume 90.2 90.4 80-100 fL Mean Corpuscular Hemoglobin 29.5 29.4 25-34 pg Mean Corpuscular Hemoglobin Concent 32.7 32.5 32-36 g/dl Platelet Count 19 17 130-400 K/uL Mean Platelet Volume 8.9 9.2 7.4-10.4 fL RDW Standard Deviation 57.6 57.0 36.4-46.3 fL RDW Coefficient of Variation 17.7 17.5 11.5-14.5 % Neutrophils % (Manual) 99.1 99.1 % Lymphocytes % (Manual) 0.9 0.9 % Neutrophils # (Manual) 7.30 5.76 1.4-6.5 K/uL Total Absolute Neutrophils 7.30 5.76 1.4-6.5 K/uL Lymphocytes # (Manual) 0.07 0.05 1.2-3.4 K/uL Total Absolute Lymphocytes 0.07 0.05 1.2-3.4 K/uL Dohle Bodies 1+ Platelet Estimate SIGNIFIC DECREASED SIGNIFIC DECREASED Sodium Level 141 141 136-145 mmol/L Potassium Level 4.5 4.1 3.5-5.1 mmol/L Chloride Level 106 106 98-107 mmol/L Carbon Dioxide Level 26 30 21-32 mmol/L Anion Gap 9.0 5.0 3-11 mmol/L Blood Urea Nitrogen 17 15 7-18 mg/dl Creatinine 0.99 0.84 0.60-1.20 mg/dl Est Creatinine Clear Calc Drug Dose 55.7 65.7 ml/min Estimated GFR () 64.6 78.8 Estimated GFR (Non- 55.7 68.0 BUN/Creatinine Ratio 17.0 17.7 10-20 Random Glucose 220 140 70-99 mg/dl Calcium Level 7.8 7.8 8.5-10.1 mg/dl Hypersegmented Polys 1+ Anisocytosis PRESENT Bedside Glucose 149 147 70-90 mg/dl Test 07/11/17 16:31 Range/Units Bedside Glucose 310 70-90 mg/dl Assessment and Plan This is a 77 yo f with a history of an aggressive B cell lymphoma requiring chemotherapy that is s/p head injury and pancytopenia. Patient hgb dropped to 6.8. Will transfuse 2 units of blood today. Give 20mg PO Lasix prior to first unit of pRBC and IV 20mg Lasix prior to 2nd unit of pRBC. * Mechanical fall, s/p head injury in the presence of thrombocytopenia - CT of head and cervical spine was WNL - Given that patient has thrombocytopenia, she was admitted for further observation * Pancytopenia secondary to chemotherapy - Will continue to monitor daily - Patient was seen by Heme/Onc, Dr Clark states PLT transfuse for < 15 and p RBC for hgb < 8 - Given her drop in hgb somewhat precipitous, Dr. Clark recommended FOBT. Ordered FOBT. * Lymphoma - Hem/ onc was consulted, agreed with transfusion of pRBC for now - prophylaxis for immunosupp and multiple MDRO infections: fluconzaole, bactrim, acyclovir and nitrofurantoin - port on right side * Diabetes - BSG AC HS - continue sitagliptin, if BSG > 180 consistently will consider adding insulin ISS * HTN - continue losartan * Neurogenic Bladder - continue oxybutinin * LE edema - Patient has significant b/l LE edema. Currently on 20mg Lasix. Will consider increase the dose to 40mg tomorrow. * Back pain/ left hip pain; chronic - using fentanyl and [place] regularly * Vertigo - has a tendency to have vertigo after pills in am - continue meclizine * DVT Prophylaxis - h/o dvt however pancytopenia; SCD Resident Physician Supervision Note: I was present with Dr. Red during the history and exam. I discussed the case with the resident and agree with the findings and plan as documented in the note. Any exceptions or clarifications are listed here: 77-year-old female with history of B-cell lymphoma presents with pancytopenia following chemotherapy admitted earlier today after falling at the nursing facility. Unfortunately, imaging of the brain was unremarkable. Her hemoglobin as well as 6.8 and after discussion with hematology/oncology will transfuse 2 units of blood today. Careful monitoring of platelet count if platelets fall below 15, 000 where she develops bleeding. She has significant bilateral lower extremity pitting edema. Agree with Lasix diuresis with monitoring of kidney function and potassium. Documented By: Koffi Gupta
[2017-07-11] MEDS ORDERED: FUROSEMIDE INJ 20 MG in SYRINGE 0 ML IV SCH (18:00)
[2017-07-11] MEDS: ALLOPURINOL 100 MG TAB PO SCH (21:10)
[2017-07-12] VITALS (16 sets, daily range): BP systolic 134–174; BP diastolic 69–85; PULSE 54–70; TEMP 36.3–36.9; O2SAT 94–98
[2017-07-12] MEDS ORDERED: NURSING DECISION MEDICATION ORDER SCH (00:15)
[2017-07-12 06:12] LABS: BUN/CREATININE RATIO 18.2 (10-20); CREATININE 0.95 mg/dl (0.60-1.20)
[2017-07-12 06:24] LABS: MEAN CELL VOLUME 89.4 fL (80-100); MEAN CORPUSCULAR HEMOGLOBIN 30.8 pg (25-34); MEAN CORPUSCULAR HGB CONC 34.4 g/dl (32-36); PLATELET COUNT 11 K/uL (130-400); RED BLOOD COUNT 3.02 M/uL (4.2-5.4); WHITE BLOOD COUNT 2.82 K/uL (4.8-10.8)
[2017-07-12 06:27] LABS: PLT ESTIMATE SIGNIFIC DECREASED
[2017-07-12] MEDS: SODIUM CHLORIDE 0.9% 10ML FLUSH IV SCH (08:00)
[2017-07-12] MEDS: LIDODERM (LIDOCAINE) PATCH 5% TD SCH (08:00)
[2017-07-12] MEDS: ALBUTEROL HFA 8 GM INHALER INH SCH ×4 (08:00→17:49)
[2017-07-12] MEDS: CHECK FENTANYL PATCH PLACEMENT SCH ×2 (08:01→15:19)
[2017-07-12] MEDS: FLUCONAZOLE 100 MG TAB PO SCH (08:04)
[2017-07-12] MEDS: DOCUSATE SODIUM 100 MG CAP PO SCH ×3 (08:04→20:27)
[2017-07-12] MEDS: POTASSIUM CHLORIDE 20 MEQ TABCR PO SCH (08:04)
[2017-07-12] MEDS: OXYBUTYNIN CHLORIDE 5 MG TABCR PO SCH (08:04)
[2017-07-12] MEDS: FLUTICASONE PROPIONATE NA SPR 16 GM BTL NAE SCH (08:04)
[2017-07-12] MEDS: SITAGLIPTIN 100 MG TAB PO SCH (08:04)
[2017-07-12] MEDS: LOSARTAN POTASSIUM 50 MG TAB PO SCH (08:04)
[2017-07-12] MEDS: DRONABINOL 2.5 MG CAP PO SCH (08:05)
[2017-07-12] MEDS: HYDROCODONE/ACETAMOPHEN 5/325MG TAB PO SCH ×3 (08:05→20:25)
[2017-07-12] MEDS: FUROSEMIDE 20 MG TAB PO SCH (08:05)
[2017-07-12] MEDS: CEROVITE ADV FORMULA TAB PO SCH (08:05)
[2017-07-12] MEDS: POT PHOSPHATE MONOBASIC W/ SOD TAB PO SCH ×4 (08:05→20:25)
[2017-07-12] MEDS: NITROFURANTOIN MONOHYDRATE 100 MG CAP PO SCH ×2 (08:05→20:25)
[2017-07-12] MEDS: PANTOprazole SOD 40 MG TAB PO SCH (08:06)
[2017-07-12] MEDS: ONDANSETRON 8 MG TAB PO SCH ×2 (08:06→20:26)
--- NOTE | 2017-07-12 09:13 | Hematology/Oncology Prog Note ---
Hematology/Onc Progress Note Date of Service Jul 12, 2017. Diagnoses High-grade NHL Chemotherapy-induced pancytopenia Fall Medications Medications Administered Medications (Trade) Dose Ordered Sig/[place] Route Start Time Stop Time Status Last Admin Dose Admin Acyclovir (Zovirax Cap) 200 mg TID PO 07/11/17 08:00 08/10/17 07:59 07/11/17 21:10 200 MG Allopurinol (Zyloprim Tab) 200 mg QPM PO 07/11/17 21:00 08/10/17 20:59 07/11/17 21:10 200 MG Docusate Sodium (coLACE CAP) 100 mg AMHS PO 07/11/17 08:00 08/10/17 07:59 07/12/17 08:04 100 MG Dronabinol (Marinol Cap) 2.5 mg QAM PO 07/11/17 08:00 08/10/17 07:59 07/12/17 08:05 2.5 MG Fentanyl (Duragesic Patch) 25 mcg Q72H TD 07/11/17 06:00 07/25/17 05:59 07/11/17 05:41 25 MCG Fluconazole (Diflucan Tab) 100 mg QAM PO 07/11/17 08:00 08/10/17 07:59 07/12/17 08:04 100 MG Fluticasone Propionate (Flonase Nasal [place]) 2 sprays DAILY VIGNESH 07/11/17 08:00 08/10/17 07:59 07/12/17 08:04 2 SPRAYS Folic Acid (Folvite Tab) 1 mg QAM PO 07/11/17 08:00 08/10/17 07:59 07/12/17 08:04 1 MG Furosemide (Lasix Tab) 20 mg QAM PO 07/11/17 08:00 08/10/17 07:59 07/12/17 08:05 20 MG Heparin Sodium (Porcine) (Heparin 10 Unit/ ml 5 ml Flush) 5 ml DAILY FLUSH 07/11/17 08:00 08/10/17 07:59 07/12/17 03:38 5 ML Acetaminophen/ Hydrocodone Bitart ([place] 5/325 Tab) 1 tab TID PO 07/11/17 08:00 07/25/17 07:59 07/12/17 08:05 1 TAB Losartan Potassium (coZAAR TAB) 100 mg DAILY PO 07/11/17 08:00 08/10/17 07:59 07/12/17 08:04 100 MG Multivitamins/ Minerals (Multivitamin W/ Minerals Tab) 1 tab DAILY PO 07/11/17 08:00 08/10/17 07:59 07/12/17 08:05 1 TAB Nitrofurantoin Macrocrystals (Macrobid Cap) 100 mg BID PO 07/11/17 08:00 08/10/17 07:59 07/12/17 08:05 100 MG Ondansetron HCl (Zofran Tab) 8 mg BID PO 07/11/17 08:00 08/10/17 07:59 07/12/17 08:06 8 MG Oxybutynin Chloride (Ditropan-Xl Tab) 10 mg QAM PO 07/11/17 08:00 08/10/17 07:59 07/12/17 08:04 10 MG Pantoprazole Sodium (Protonix Tab) 40 mg DAILY PO 07/11/17 08:00 08/10/17 07:59 07/12/17 08:06 40 MG Potassium/ Phosphorus/Sodium (Phospha 250 Neutral 155-852-130 Mg) 1 tab QID PO 07/11/17 08:00 08/10/17 07:59 07/12/17 08:05 1 TAB Potassium Chloride (Klor-Con Tab) 40 meq DAILY PO 07/11/17 08:00 08/10/17 07:59 07/12/17 08:04 40 MEQ Prednisone (PredniSONE TAB) 50 mg DAILY PO 07/11/17 08:00 08/10/17 07:59 07/12/17 08:05 50 MG Sitagliptin Phosphate (Januvia Tab) 100 mg QAM PO 07/11/17 08:00 08/10/17 07:59 07/12/17 08:04 100 MG Trimethoprim/ Sulfamethoxazole (Septra Ds 800/ 160MG Tab) 1 tab MoTh@0800 PO 07/11/17 08:00 08/10/17 07:59 07/11/17 10:22 1 TAB Miscellaneous (Fentanyl Patch Remove & Waste) 1 ea Q3D N/A 07/11/17 05:59 08/10/17 05:58 07/11/17 05:41 1 EA Miscellaneous Information (Check Fentanyl Patch Placement) 1 ea QS N/A 07/11/17 08:00 08/10/17 07:59 07/12/17 08:01 1 EA Furosemide (Lasix Tab) 20 mg NOW ONCE PO 07/11/17 15:00 07/11/17 15:01 DC 07/11/17 18:05 20 MG Furosemide 20 mg/ Syringe 2 ml @ 4 mls/min TODAY@1800 IV 07/11/17 18:00 07/11/17 20:00 DC 07/11/17 23:30 4 MLS/MIN Subjective Ms. Perez looks well today. Her energy is fair and she ate well this morning. She denies any bleeding since yesterday. Review of Systems: Constitutional: + fatigue, No fever Eyes: No worsening of vision ENT: No unusual epistaxis Respiratory: No cough, No shortness of breath, No hemoptysis Cardiovascular: No chest pain Abdomen: No pain, No nausea, No GI bleeding Female : No dysuria, No hematuria Heme: No abnormal bleeding/bruising Skin: No rash Vital Signs Vital Signs Past 12 Hours Date Time Temp Pulse Resp B/P (MAP) Pulse Ox O2 Delivery O2 Flow Rate FiO2 07/12/17 07:26 36.3 59 18 153/83 (106) 96 Room Air 07/12/17 03:21 36.5 54 18 153/78 94 07/12/17 02:50 36.5 59 16 160/85 97 07/12/17 01:50 36.6 59 18 143/76 98 07/12/17 00:50 36.7 68 18 157/83 96 07/12/17 00:20 36.7 58 18 168/80 95 07/12/17 00:04 36.6 60 18 143/76 97 07/12/17 00:00 Room Air 07/11/17 23:28 36.8 60 18 134/78 97 07/11/17 22:10 36.4 61 18 146/81 98 07/11/17 21:10 36.6 72 18 174/82 97 Physical Exam Constitutional: Level of Distress: NAD, chronically ill Psychiatric: Mental Status: active & alert Orientation: oriented except where noted Lungs: Respiratory Effort: no dyspnea Auscuitation: breath sounds normal Cardiovascular: Heart Auscultation: RRR Abdomen: Inspection & Palpation: soft, no tenderness, guarding & rebound Extremities: no edema Laboratory Last 24 Hours Test 07/11/17 11:35 07/11/17 16:31 07/11/17 19:25 07/11/17 20:03 Bedside Glucose 147 mg/dl 310 mg/dl 357 mg/dl Stool Occult Blood NEGATIVE Test 07/11/17 20:17 07/12/17 05:27 07/12/17 07:43 Bedside Glucose 336 mg/dl 138 mg/dl White Blood Count 2.82 K/uL Red Blood Count 3.02 M/uL Hemoglobin 9.3 g/dL Hematocrit 27.0 % Mean Corpuscular Volume 89.4 fL Mean Corpuscular Hemoglobin 30.8 pg Mean Corpuscular Hemoglobin Concent 34.4 g/dl RDW Standard Deviation 50.1 fL RDW Coefficient of Variation 15.5 % Platelet Count 11 K/uL Platelet Estimate SIGNIFIC DECREASED Sodium Level 139 mmol/L Potassium Level 4.0 mmol/L Chloride Level 102 mmol/L Carbon Dioxide Level 30 mmol/L Anion Gap 7.0 mmol/L Blood Urea Nitrogen 17 mg/dl Creatinine 0.95 mg/dl Est Creatinine Clear Calc Drug Dose 58.1 ml/min Estimated GFR () 67.9 Estimated GFR (Non- 58.6 BUN/Creatinine Ratio 18.2 Random Glucose 159 mg/dl Calcium Level 8.0 mg/dl Assessment & Plan Ms. Perez responded nicely to the RBC transfusion. Her other counts continue to fall, which is to be expected given. They may continue to fall further from here. Her platelets are 11K and since her other counts are still falling, we should give her a platelet transfusion today. Otherwise, she should continue supportive care and rehab once that is safe.
[2017-07-12] MEDS: ACYCLOVIR 200 MG CAP PO SCH ×3 (11:20→20:26)
[2017-07-12] MEDS ORDERED: FUROSEMIDE 20 MG/2 ML UDP PO STA (11:21)
[2017-07-12] MEDS ORDERED: FUROSEMIDE ORAL SOLN 40 MG/5 ML UDP PO STA (11:25)
--- NOTE | 2017-07-12 18:27 | Family Medicine Progress Note ---
Progress Note Date of Service Jul 12, 2017. Subjective Pt evaluation today including: conversation w/ patient, physical exam Voiding: no voiding problems Patient was seen at the bedside. She was comfortably lying down on her bed. Denies melena, hematochezia, hematuria, SOB, chest pain, or abdominal pain. Constitutional: No fever Respiratory: No cough, No shortness of breath Abdomen: No pain, No nausea, No GI bleeding Musculoskeletal: + swelling (b/l LE) Medications Current Inpatient Medications Medications (Trade) Dose Ordered Sig/[place] Route Start Time Stop Time Status Last Admin Dose Admin Zolpidem Tartrate (Ambien Tab) 5 mg HSZ PRN PO 07/11/17 03:30 08/10/17 03:29 Ondansetron HCl (Zofran Inj) 4 mg Q6H PRN IV 07/11/17 03:30 08/10/17 03:29 Acetaminophen (Tylenol Tab) 500 mg Q4 PRN PO 07/11/17 05:00 08/10/17 04:59 Acyclovir (Zovirax Cap) 200 mg TID PO 07/11/17 08:00 08/10/17 07:59 07/12/17 14:40 200 MG Albuterol (Ventolin Hfa Inhaler) 2 puffs QID INH 07/11/17 08:00 08/10/17 07:59 Allopurinol (Zyloprim Tab) 200 mg QPM PO 07/11/17 21:00 08/10/17 20:59 07/11/17 21:10 200 MG Calcium Carbonate (Tums Chew Tab) 500 mg Q4 PRN PO 07/11/17 05:00 08/10/17 04:59 Docusate Sodium (coLACE CAP) 100 mg AMHS PO 07/11/17 08:00 08/10/17 07:59 07/12/17 08:04 100 MG Dronabinol (Marinol Cap) 2.5 mg QAM PO 07/11/17 08:00 08/10/17 07:59 07/12/17 08:05 2.5 MG Fentanyl (Duragesic Patch) 25 mcg Q72H TD 07/11/17 06:00 07/25/17 05:59 07/11/17 05:41 25 MCG Fluconazole (Diflucan Tab) 100 mg QAM PO 07/11/17 08:00 08/10/17 07:59 07/12/17 08:04 100 MG Fluticasone Propionate (Flonase Nasal [place]) 2 sprays DAILY VIGNESH 07/11/17 08:00 08/10/17 07:59 07/12/17 08:04 2 SPRAYS Folic Acid (Folvite Tab) 1 mg QAM PO 07/11/17 08:00 08/10/17 07:59 07/12/17 08:04 1 MG Heparin Sodium (Porcine) (Heparin 10 Unit/ ml 5 ml Flush) 5 ml DAILY FLUSH 07/11/17 08:00 08/10/17 07:59 07/12/17 12:15 5 ML Acetaminophen/ Hydrocodone Bitart ([place] 5/325 Tab) 1 tab TID PO 07/11/17 08:00 07/25/17 07:59 07/12/17 08:05 1 TAB Acetaminophen/ Hydrocodone Bitart ([place] 5/325 Tab) 1 tab Q4 PRN PO 07/11/17 05:00 07/25/17 04:59 Lidocaine (Lidoderm Patch 5%) 1 patch QAM TD 07/11/17 08:00 08/10/17 07:59 Losartan Potassium (coZAAR TAB) 100 mg DAILY PO 07/11/17 08:00 08/10/17 07:59 07/12/17 08:04 100 MG Meclizine HCl (Antivert Tab) 25 mg TID PRN PO 07/11/17 05:00 08/10/17 04:59 Multivitamins/ Minerals (Multivitamin W/ Minerals Tab) 1 tab DAILY PO 07/11/17 08:00 08/10/17 07:59 07/12/17 08:05 1 TAB Nitrofurantoin Macrocrystals (Macrobid Cap) 100 mg BID PO 07/11/17 08:00 08/10/17 07:59 07/12/17 08:05 100 MG Ondansetron HCl (Zofran Tab) 4 mg Q6 PRN PO 07/11/17 05:00 08/10/17 04:59 Ondansetron HCl (Zofran Tab) 8 mg BID PO 07/11/17 08:00 08/10/17 07:59 07/12/17 08:06 8 MG Oxybutynin Chloride (Ditropan-Xl Tab) 10 mg QAM PO 07/11/17 08:00 08/10/17 07:59 07/12/17 08:04 10 MG Pantoprazole Sodium (Protonix Tab) 40 mg DAILY PO 07/11/17 08:00 08/10/17 07:59 07/12/17 08:06 40 MG Potassium/ Phosphorus/Sodium (Phospha 250 Neutral 155-852-130 Mg) 1 tab QID PO 07/11/17 08:00 08/10/17 07:59 07/12/17 12:29 1 TAB Potassium Chloride (Klor-Con Tab) 40 meq DAILY PO 07/11/17 08:00 08/10/17 07:59 07/12/17 08:04 40 MEQ Prednisone (PredniSONE TAB) 50 mg DAILY PO 07/11/17 08:00 08/10/17 07:59 07/12/17 08:05 50 MG Prochlorperazine (Compazine Supp) 25 mg Q6H PRN [place] 07/11/17 05:00 08/10/17 04:59 Senna/Docusate Sodium (Senokot S Tab) 1 tab Q24H PRN PO 07/11/17 05:00 08/10/17 04:59 Sitagliptin Phosphate (Januvia Tab) 100 mg QAM PO 07/11/17 08:00 08/10/17 07:59 07/12/17 08:04 100 MG Sodium Chloride (Sodium Chloride 0.9% 10 ml Flush) 10 ml DAILY IV 07/11/17 08:00 08/10/17 07:59 Trimethoprim/ Sulfamethoxazole (Septra Ds 800/ 160MG Tab) 1 tab MoTh@0800 PO 07/11/17 08:00 08/10/17 07:59 07/11/17 10:22 1 TAB Miscellaneous (Fentanyl Patch Remove & Waste) 1 ea Q3D N/A 07/11/17 05:59 08/10/17 05:58 07/11/17 05:41 1 EA Miscellaneous Information (Check Fentanyl Patch Placement) 1 ea QS N/A 07/11/17 08:00 08/10/17 07:59 07/12/17 15:19 1 EA Miscellaneous (Remove Lidoderm Patch) 1 ea DAILY@21 N/A 07/11/17 21:00 08/10/17 20:59 Furosemide 20 mg/ Syringe 2 ml @ 4 mls/min DAILY IV 07/13/17 08:00 08/12/17 07:59 Objective Vital Signs Date Time Temp Pulse Resp B/P (MAP) Pulse Ox O2 Delivery O2 Flow Rate FiO2 07/12/17 15:13 36.6 65 20 156/79 (104) 97 Room Air 07/12/17 11:27 36.8 59 16 138/77 07/12/17 11:04 Room Air 07/12/17 11:01 36.7 64 20 136/80 94 07/12/17 10:35 36.5 66 20 144/77 98 07/12/17 10:15 36.4 70 20 146/75 97 07/12/17 09:58 36.4 65 20 134/69 07/12/17 07:26 36.3 59 18 153/83 (106) 96 Room Air 07/12/17 03:21 36.5 54 18 153/78 94 07/12/17 02:50 36.5 59 16 160/85 97 07/12/17 01:50 36.6 59 18 143/76 98 07/12/17 00:50 36.7 68 18 157/83 96 07/12/17 00:20 36.7 58 18 168/80 95 07/12/17 00:04 36.6 60 18 143/76 97 07/12/17 00:00 Room Air 07/11/17 23:28 36.8 60 18 134/78 97 07/11/17 22:10 36.4 61 18 146/81 98 07/11/17 21:10 36.6 72 18 174/82 97 07/11/17 20:10 36.6 67 18 141/83 96 07/11/17 20:10 36.6 67 18 141/83 (102) 96 Room Air 07/11/17 19:50 36.5 64 18 145/80 (101) 94 Room Air 07/11/17 19:50 36.5 64 18 145/80 94 07/11/17 19:25 36.7 69 18 149/85 96 07/11/17 19:07 36.8 68 18 154/81 93 07/11/17 19:06 36.7 64 18 162/85 (110) 93 Room Air 07/11/17 16:07 36.8 68 18 154/81 (105) 93 Room Air 07/11/17 16:00 97 Room Air Physical Exam General Appearance: WD/WN, no apparent distress, + obese Neck: supple, trachea midline Respiratory/Chest: chest non-tender, lungs clear, normal breath sounds, no respiratory distress, no accessory muscle use Cardiovascular: regular rate, rhythm Abdomen: normal bowel sounds, non tender, soft Extremities: non-tender, no calf tenderness, + pedal edema (pitting edema about 2+ b/l LE, R>L, improved since yesterday) Neurologic/Psychiatric: alert, normal mood/affect, oriented x 3 Skin: normal color, warm/dry, no rash Laboratory Results Results Past 24 Hours Test 07/11/17 16:31 07/11/17 19:25 07/11/17 20:03 07/11/17 20:17 Range/Units Bedside Glucose 310 357 336 70-90 mg/dl Stool Occult Blood NEGATIVE NEGATIVE Test 07/12/17 05:27 07/12/17 07:43 07/12/17 09:11 07/12/17 11:31 Range/Units White Blood Count 2.82 4.8-10.8 K/uL Red Blood Count 3.02 4.2-5.4 M/uL Hemoglobin 9.3 12.0-16.0 g/dL Hematocrit 27.0 37-47 % Mean Corpuscular Volume 89.4 80-100 fL Mean Corpuscular Hemoglobin 30.8 25-34 pg Mean Corpuscular Hemoglobin Concent 34.4 32-36 g/dl RDW Standard Deviation 50.1 36.4-46.3 fL RDW Coefficient of Variation 15.5 11.5-14.5 % Platelet Count 11 130-400 K/uL Platelet Estimate SIGNIFIC DECREASED Sodium Level 139 136-145 mmol/L Potassium Level 4.0 3.5-5.1 mmol/L Chloride Level 102 98-107 mmol/L Carbon Dioxide Level 30 21-32 mmol/L Anion Gap 7.0 3-11 mmol/L Blood Urea Nitrogen 17 7-18 mg/dl Creatinine 0.95 0.60-1.20 mg/dl Est Creatinine Clear Calc Drug Dose 58.1 ml/min Estimated GFR () 67.9 Estimated GFR (Non- 58.6 BUN/Creatinine Ratio 18.2 10-20 Random Glucose 159 70-99 mg/dl Calcium Level 8.0 8.5-10.1 mg/dl Bedside Glucose 138 170 70-90 mg/dl Assessment and Plan This is a 77 yo f with a history of an aggressive B cell lymphoma requiring chemotherapy that is s/p head injury and pancytopenia. Patient hgb dropped to 6.8. Received 2 units of pRBC yesterday. Will transfuse 2 units of plt given it dropped to 11,000. FOBT is neg. Plan was discussed with Dr. Clark. Started her on IV 20mg Lasix, will monitor I/O and electrolytes, adjust accordingly. * Mechanical fall, s/p head injury in the presence of thrombocytopenia - CT of head and cervical spine was WNL - Given that patient has thrombocytopenia, she was admitted for further observation * Pancytopenia secondary to chemotherapy - Will continue to monitor daily - s/p 2 units of pRBC - Will transfuse 2 units of plt today - Patient was seen by Heme/Onc, Dr Clark states PLT transfuse for < 15 and p RBC for hgb < 8 - Given her drop in hgb somewhat precipitous, Dr. Clark recommended FOBT. FOBT negative * Lymphoma - Hem/ onc was consulted, agreed with transfusion of pRBC for now - prophylaxis for immunosupp and multiple MDRO infections: fluconzaole, bactrim, acyclovir and nitrofurantoin - port on right side * Diabetes - BSG AC HS - continue sitagliptin, if BSG > 180 consistently will consider adding insulin ISS * HTN - continue losartan * Neurogenic Bladder - continue oxybutinin * Bilateral LE edema - Patient has significant b/l LE edema. - Will start her on IV 20mg Lasix daily - Monitor I/O and daily weight * Back pain/ left hip pain; chronic - using fentanyl and [place] regularly * Vertigo - has a tendency to have vertigo after pills in am - continue meclizine * DVT Prophylaxis - h/o dvt however pancytopenia; SCD Resident Physician Supervision Note: I was present with Dr. Red during the history and exam. I discussed the case with the resident and agree with the findings and plan as documented in the note. Any exceptions or clarifications are listed here: The patient reports more energy today. We discussed her platelet count and the need for transfusion of platelets. She and her family had several questions regarding her blood counts, her malignancy, and the role and side effects of her chemotherapy. I deferred most of these questions to oncology. Also questions about her lower extremity edema and I reviewed the plan of care including continue diuresis and monitoring of electrolytes. Documented By: Koffi Gupta
[2017-07-12 18:44] LABS: PLATELET COUNT 37 K/uL (130-400)
[2017-07-12] MEDS: ALLOPURINOL 100 MG TAB PO SCH (20:27)
[2017-07-12] MEDS ORDERED: INSULIN ASPART 100 UNITS/ML 3 ML PEN SC ONE (21:30)
[2017-07-12] MEDS ORDERED: GLUCAGON FOR INJ 1 MG VIAL SQ PRN (21:45)
[2017-07-12] MEDS ORDERED: GLUCOSE 10 TABS/TUBE PO PRN (21:45)
[2017-07-12] MEDS ORDERED: DEXTROSE 50% 50 ML SYR IV PRN (21:45)
[2017-07-12] MEDS ORDERED: GLUCOSE 40% GEL 15 GM TUBE PO PRN (21:45)
[2017-07-13 03:15] VITALS: BP 158/63; PULSE 56; TEMP 36.4; O2SAT 97
[2017-07-13 06:25] LABS: HEMATOCRIT 26.7 % (37-47); MEAN CELL VOLUME 88.7 fL (80-100); MEAN CORPUSCULAR HEMOGLOBIN 30.9 pg (25-34); MEAN CORPUSCULAR HGB CONC 34.8 g/dl (32-36); MEAN PLATELET VOLUME 8.8 fL (7.4-10.4); PLATELET COUNT 26 K/uL (130-400); RED BLOOD COUNT 3.01 M/uL (4.2-5.4); WHITE BLOOD COUNT 0.38 K/uL (4.8-10.8)
[2017-07-13 06:31] LABS: CALCIUM 8.1 mg/dl (8.5-10.1); CREATININE 0.87 mg/dl (0.60-1.20)
[2017-07-13 07:15] VITALS: BP 145/73; PULSE 55; TEMP 36.4; O2SAT 97
[2017-07-13] MEDS: LIDODERM (LIDOCAINE) PATCH 5% TD SCH (08:00)
[2017-07-13] MEDS: ALBUTEROL HFA 8 GM INHALER INH SCH ×4 (08:00→20:00)
[2017-07-13] MEDS: DOCUSATE SODIUM 100 MG CAP PO SCH ×2 (08:00→20:57)
[2017-07-13] MEDS: DRONABINOL 2.5 MG CAP PO SCH (08:00)
[2017-07-13] MEDS ORDERED: FUROSEMIDE INJ 20 MG in SYRINGE 0 ML IV SCH (08:00)
[2017-07-13] MEDS: CHECK FENTANYL PATCH PLACEMENT SCH ×3 (08:08→16:00)
[2017-07-13] MEDS: SODIUM CHLORIDE 0.9% 10ML FLUSH IV SCH (08:10)
[2017-07-13] MEDS: LOSARTAN POTASSIUM 50 MG TAB PO SCH (08:11)
[2017-07-13] MEDS: FLUCONAZOLE 100 MG TAB PO SCH (08:11)
[2017-07-13] MEDS: FLUTICASONE PROPIONATE NA SPR 16 GM BTL NAE SCH (08:11)
[2017-07-13] MEDS: OXYBUTYNIN CHLORIDE 5 MG TABCR PO SCH (08:11)
[2017-07-13] MEDS: POT PHOSPHATE MONOBASIC W/ SOD TAB PO SCH ×5 (08:12→20:56)
[2017-07-13] MEDS: ACYCLOVIR 200 MG CAP PO SCH ×3 (08:12→20:58)
[2017-07-13] MEDS: CEROVITE ADV FORMULA TAB PO SCH (08:12)
[2017-07-13] MEDS: POTASSIUM CHLORIDE 20 MEQ TABCR PO SCH (08:12)
[2017-07-13] MEDS: SITAGLIPTIN 100 MG TAB PO SCH (08:12)
[2017-07-13] MEDS: PANTOprazole SOD 40 MG TAB PO SCH (08:12)
[2017-07-13] MEDS: ONDANSETRON 8 MG TAB PO SCH ×2 (08:12→20:57)
[2017-07-13] MEDS: NITROFURANTOIN MONOHYDRATE 100 MG CAP PO SCH ×2 (08:12→20:57)
[2017-07-13] MEDS: HYDROCODONE/ACETAMOPHEN 5/325MG TAB PO SCH ×3 (08:14→20:56)
[2017-07-13] MEDS: INSULIN ASPART 100 UNITS/ML 3 ML PEN SC SCH ×5 (08:20→21:05)
--- NOTE | 2017-07-13 10:50 | Family Medicine Progress Note ---
Progress Note Date of Service Jul 13, 2017. Subjective Pt evaluation today including: conversation w/ patient, conversation w/ family , physical exam, lab review, conversation w/ natural remedy consultant Pain: Denies Voiding: no voiding problems Patient was seen at the bedside. Sister was at the bedside. Her blood glucose was elevated yesterday night and she was started on SSI. Patient states that she is doing well today. Didn't get up from bed yet. Denies any complaints today. Constitutional: No fever Respiratory: No cough, No shortness of breath Cardiovascular: No chest pain Abdomen: No pain, No nausea, No vomiting, No diarrhea, No constipation, No GI bleeding Musculoskeletal: + swelling (b/l lower ext) Female : No dysuria Skin: No rash Medications Current Inpatient Medications Medications (Trade) Dose Ordered Sig/[place] Route Start Time Stop Time Status Last Admin Dose Admin Zolpidem Tartrate (Ambien Tab) 5 mg HSZ PRN PO 07/11/17 03:30 08/10/17 03:29 Ondansetron HCl (Zofran Inj) 4 mg Q6H PRN IV 07/11/17 03:30 08/10/17 03:29 Acetaminophen (Tylenol Tab) 500 mg Q4 PRN PO 07/11/17 05:00 08/10/17 04:59 Acyclovir (Zovirax Cap) 200 mg TID PO 07/11/17 08:00 08/10/17 07:59 07/13/17 08:12 200 MG Albuterol (Ventolin Hfa Inhaler) 2 puffs QID INH 07/11/17 08:00 08/10/17 07:59 Allopurinol (Zyloprim Tab) 200 mg QPM PO 07/11/17 21:00 08/10/17 20:59 07/12/17 20:27 200 MG Calcium Carbonate (Tums Chew Tab) 500 mg Q4 PRN PO 07/11/17 05:00 08/10/17 04:59 Docusate Sodium (coLACE CAP) 100 mg AMHS PO 07/11/17 08:00 08/10/17 07:59 07/12/17 08:04 100 MG Dronabinol (Marinol Cap) 2.5 mg QAM PO 07/11/17 08:00 08/10/17 07:59 07/12/17 08:05 2.5 MG Fentanyl (Duragesic Patch) 25 mcg Q72H TD 07/11/17 06:00 07/25/17 05:59 07/11/17 05:41 25 MCG Fluconazole (Diflucan Tab) 100 mg QAM PO 07/11/17 08:00 08/10/17 07:59 07/13/17 08:11 100 MG Fluticasone Propionate (Flonase Nasal [place]) 2 sprays DAILY VIGNESH 07/11/17 08:00 08/10/17 07:59 07/13/17 08:11 2 SPRAYS Folic Acid (Folvite Tab) 1 mg QAM PO 07/11/17 08:00 08/10/17 07:59 07/13/17 08:12 1 MG Heparin Sodium (Porcine) (Heparin 10 Unit/ ml 5 ml Flush) 5 ml DAILY FLUSH 07/11/17 08:00 08/10/17 07:59 07/13/17 08:10 5 ML Acetaminophen/ Hydrocodone Bitart ([place] 5/325 Tab) 1 tab TID PO 07/11/17 08:00 07/25/17 07:59 07/13/17 08:14 1 TAB Acetaminophen/ Hydrocodone Bitart ([place] 5/325 Tab) 1 tab Q4 PRN PO 07/11/17 05:00 07/25/17 04:59 Lidocaine (Lidoderm Patch 5%) 1 patch QAM TD 07/11/17 08:00 08/10/17 07:59 Losartan Potassium (coZAAR TAB) 100 mg DAILY PO 07/11/17 08:00 08/10/17 07:59 07/13/17 08:11 100 MG Meclizine HCl (Antivert Tab) 25 mg TID PRN PO 07/11/17 05:00 08/10/17 04:59 Multivitamins/ Minerals (Multivitamin W/ Minerals Tab) 1 tab DAILY PO 07/11/17 08:00 08/10/17 07:59 07/13/17 08:12 1 TAB Nitrofurantoin Macrocrystals (Macrobid Cap) 100 mg BID PO 07/11/17 08:00 08/10/17 07:59 07/13/17 08:12 100 MG Ondansetron HCl (Zofran Tab) 4 mg Q6 PRN PO 07/11/17 05:00 08/10/17 04:59 Ondansetron HCl (Zofran Tab) 8 mg BID PO 07/11/17 08:00 08/10/17 07:59 07/13/17 08:12 8 MG Oxybutynin Chloride (Ditropan-Xl Tab) 10 mg QAM PO 07/11/17 08:00 08/10/17 07:59 07/13/17 08:11 10 MG Pantoprazole Sodium (Protonix Tab) 40 mg DAILY PO 07/11/17 08:00 08/10/17 07:59 07/13/17 08:12 40 MG Potassium/ Phosphorus/Sodium (Phospha 250 Neutral 155-852-130 Mg) 1 tab QID PO 07/11/17 08:00 08/10/17 07:59 07/13/17 08:12 1 TAB Potassium Chloride (Klor-Con Tab) 40 meq DAILY PO 07/11/17 08:00 08/10/17 07:59 07/13/17 08:12 40 MEQ Prednisone (PredniSONE TAB) 50 mg DAILY PO 07/11/17 08:00 08/10/17 07:59 Future Hold 07/12/17 08:05 50 MG Prochlorperazine (Compazine Supp) 25 mg Q6H PRN [place] 07/11/17 05:00 08/10/17 04:59 Senna/Docusate Sodium (Senokot S Tab) 1 tab Q24H PRN PO 07/11/17 05:00 08/10/17 04:59 Sitagliptin Phosphate (Januvia Tab) 100 mg QAM PO 07/11/17 08:00 08/10/17 07:59 07/13/17 08:12 100 MG Sodium Chloride (Sodium Chloride 0.9% 10 ml Flush) 10 ml DAILY IV 07/11/17 08:00 08/10/17 07:59 07/13/17 08:10 10 ML Trimethoprim/ Sulfamethoxazole (Septra Ds 800/ 160MG Tab) 1 tab MoTh@0800 PO 07/11/17 08:00 08/10/17 07:59 07/11/17 10:22 1 TAB Miscellaneous (Fentanyl Patch Remove & Waste) 1 ea Q3D N/A 07/11/17 05:59 08/10/17 05:58 07/11/17 05:41 1 EA Miscellaneous Information (Check Fentanyl Patch Placement) 1 ea QS N/A 07/11/17 08:00 08/10/17 07:59 07/13/17 08:08 1 EA Miscellaneous (Remove Lidoderm Patch) 1 ea DAILY@21 N/A 07/11/17 21:00 08/10/17 20:59 Furosemide 20 mg/ Syringe 2 ml @ 4 mls/min DAILY IV 07/13/17 08:00 08/12/17 07:59 07/13/17 08:10 4 MLS/MIN Insulin Aspart (novoLOG ASPART) SLIDING SCALE G... ACHS SC 07/13/17 06:30 08/12/17 06:29 07/13/17 08:20 5 UNITS Glucose (Glucose 40% Gel) 15-30 GRAMS 15 GRAMS... UD PRN PO 07/12/17 21:45 08/11/17 21:44 Glucose (Glucose Chew Tab) 4-8 Tablets 4 Tabl... UD PRN PO 07/12/17 21:45 08/11/17 21:44 Dextrose (Dextrose 50% 50ML Syringe) 25-50ML OF 50% DW IV FOR... UD PRN IV 07/12/17 21:45 08/11/17 21:44 Glucagon (Glucagon Inj) 1 mg UD PRN SQ 07/12/17 21:45 08/11/17 21:44 Objective Vital Signs Date Time Temp Pulse Resp B/P (MAP) Pulse Ox O2 Delivery O2 Flow Rate FiO2 07/13/17 07:15 36.4 55 20 145/73 (97) 97 Room Air 07/13/17 03:15 36.4 56 18 158/63 (94) 97 Room Air 07/13/17 00:00 Room Air 07/12/17 23:51 36.5 55 16 165/79 (107) 97 Room Air 07/12/17 19:46 36.9 55 18 168/84 (112) 95 Room Air 07/12/17 16:00 Room Air 07/12/17 15:58 36.7 62 18 174/76 97 07/12/17 15:13 36.6 65 20 156/79 (104) 97 Room Air 8/15/17 11:27 36.8 59 16 138/77 07/12/17 11:04 Room Air 07/12/17 11:01 36.7 64 20 136/80 94 Physical Exam General Appearance: WD/WN, no apparent distress, + obese Neck: supple, trachea midline Respiratory/Chest: chest non-tender, lungs clear, normal breath sounds, no respiratory distress, no accessory muscle use Cardiovascular: regular rate, rhythm Abdomen: normal bowel sounds, non tender, soft Extremities: non-tender, no calf tenderness, + pedal edema (b/l LE pitting edema (1-2+) improving) Neurologic/Psychiatric: alert, normal mood/affect, oriented x 3 Skin: normal color, warm/dry, no rash Laboratory Results Results Past 24 Hours Test 07/12/17 11:31 07/12/17 16:26 07/12/17 18:23 07/12/17 20:29 Range/Units Bedside Glucose 170 334 365 70-90 mg/dl Platelet Count 37 130-400 K/uL Test 07/12/17 20:31 07/13/17 05:27 07/13/17 07:47 Range/Units Bedside Glucose 325 134 70-90 mg/dl White Blood Count 0.38 4.8-10.8 K/uL Red Blood Count 3.01 4.2-5.4 M/uL Hemoglobin 9.3 12.0-16.0 g/dL Hematocrit 26.7 37-47 % Mean Corpuscular Volume 88.7 80-100 fL Mean Corpuscular Hemoglobin 30.9 25-34 pg Mean Corpuscular Hemoglobin Concent 34.8 32-36 g/dl RDW Standard Deviation 50.8 36.4-46.3 fL RDW Coefficient of Variation 15.7 11.5-14.5 % Platelet Count 26 130-400 K/uL Mean Platelet Volume 8.8 7.4-10.4 fL Sodium Level 138 136-145 mmol/L Potassium Level 4.0 3.5-5.1 mmol/L Chloride Level 100 98-107 mmol/L Carbon Dioxide Level 31 21-32 mmol/L Anion Gap 7.0 3-11 mmol/L Blood Urea Nitrogen 18 7-18 mg/dl Creatinine 0.87 0.60-1.20 mg/dl Est Creatinine Clear Calc Drug Dose 60.6 ml/min Estimated GFR () 75.5 Estimated GFR (Non- 65.2 BUN/Creatinine Ratio 21.0 10-20 Random Glucose 145 70-99 mg/dl Calcium Level 8.1 8.5-10.1 mg/dl Assessment and Plan This is a 77 yo f with a history of an aggressive B cell lymphoma requiring chemotherapy that is s/p head injury and pancytopenia. Patient hgb dropped to 6.8. S/p 2 units of pRBC and platelet. FOBT is neg. She haven't get up from bed and ambulate. Ordered PT/OT and will ambulate today. Her WBC decreased to 0.38 today. Discussed the lab result with Dr. Hardwick, didn't recommended any intervention at this time. * Mechanical fall, s/p head injury in the presence of thrombocytopenia - CT of head and cervical spine was WNL - Given that patient has thrombocytopenia, she was admitted for further observation * Pancytopenia secondary to chemotherapy - Her WBC went down to 0.38 - Will continue to monitor daily - s/p 2 units of pRBC, Hgb is stable - s/p 2 units of plt, it is >15 - Patient was seen by Heme/Onc, Dr Clark states PLT transfuse for < 15 and p RBC for hgb < 8 - Given her drop in hgb somewhat precipitous, Dr. Clark recommended FOBT. FOBT negative * Lymphoma - Hem/ onc was consulted, agreed with transfusion of pRBC for now - prophylaxis for immunosupp and multiple MDRO infections: fluconzaole, bactrim, acyclovir and nitrofurantoin - port on right side * Diabetes - BSG AC HS, her last glucose level was 142 - continue sitagliptin - on SSI * HTN - continue losartan * Neurogenic Bladder - continue oxybutinin * Bilateral LE edema - Patient has significant b/l LE edema. - Switch IV to PO 40mg Lasix daily, she is diuresing well. Lost 606ml over 24hrs - Monitor I/O and daily weight * Back pain/ left hip pain; chronic - using fentanyl and [place] regularly * Vertigo - has a tendency to have vertigo after pills in am - continue meclizine * DVT Prophylaxis - h/o dvt however pancytopenia; SCD Resident Physician Supervision Note: I was present with Dr. Red during the history and exam. I discussed the case with the resident and agree with the findings and plan as documented in the note. Any exceptions or clarifications are listed here: Also discussed the case with hematology. The patient's hemoglobin is stable, platelet count improved, although white count is down compared to yesterday. Overall, the patient appears better - she had bedside physical therapy today which reportedly went well. The patient does note that she has increased fatigue following the therapy session. The lower show any edema seems to be improving, although she still has significant edema and both legs Plan #1 continue to monitor CBC #2 neutropenic precautions #3 oral Lasix #4 monitor BMP #5 bedside physical therapy Documented By: Koffi Gupta
[2017-07-13 11:18] VITALS: BP 137/79; PULSE 61; TEMP 36.6; O2SAT 97
[2017-07-13 15:07] VITALS: BP 124/73; PULSE 73; TEMP 36.6; O2SAT 94
[2017-07-13 15:16] LABS: HEMATOCRIT 27.5 % (37-47); MEAN CELL VOLUME 87.6 fL (80-100); MEAN CORPUSCULAR HEMOGLOBIN 31.8 pg (25-34); MEAN CORPUSCULAR HGB CONC 36.4 g/dl (32-36); MEAN PLATELET VOLUME 10.8 fL (7.4-10.4); PLATELET COUNT 22 K/uL (130-400); RED BLOOD COUNT 3.14 M/uL (4.2-5.4); WHITE BLOOD COUNT 0.12 K/uL (4.8-10.8)
[2017-07-13 16:00] VITALS: O2SAT 94
--- NOTE | 2017-07-13 16:46 | Hematology/Oncology Prog Note ---
Hematology/Onc Progress Note Date of Service Jul 13, 2017. Diagnoses High-grade NHL Chemotherapy-induced pancytopenia Fall Medications Medications Administered Medications (Trade) Dose Ordered Sig/[place] Route Start Time Stop Time Status Last Admin Dose Admin Acyclovir (Zovirax Cap) 200 mg TID PO 07/11/17 08:00 08/10/17 07:59 07/13/17 13:46 200 MG Allopurinol (Zyloprim Tab) 200 mg QPM PO 07/11/17 21:00 08/10/17 20:59 07/12/17 20:27 200 MG Docusate Sodium (coLACE CAP) 100 mg AMHS PO 07/11/17 08:00 08/10/17 07:59 07/12/17 08:04 100 MG Dronabinol (Marinol Cap) 2.5 mg QAM PO 07/11/17 08:00 08/10/17 07:59 07/12/17 08:05 2.5 MG Fentanyl (Duragesic Patch) 25 mcg Q72H TD 07/11/17 06:00 07/25/17 05:59 07/11/17 05:41 25 MCG Fluconazole (Diflucan Tab) 100 mg QAM PO 07/11/17 08:00 08/10/17 07:59 07/13/17 08:11 100 MG Fluticasone Propionate (Flonase Nasal [place]) 2 sprays DAILY VIGNESH 07/11/17 08:00 08/10/17 07:59 07/13/17 08:11 2 SPRAYS Folic Acid (Folvite Tab) 1 mg QAM PO 07/11/17 08:00 08/10/17 07:59 07/13/17 08:12 1 MG Furosemide (Lasix Tab) 20 mg QAM PO 07/11/17 08:00 07/12/17 11:04 DC 07/12/17 08:05 20 MG Heparin Sodium (Porcine) (Heparin 10 Unit/ ml 5 ml Flush) 5 ml DAILY FLUSH 07/11/17 08:00 08/10/17 07:59 07/13/17 08:10 5 ML Acetaminophen/ Hydrocodone Bitart ([place] 5/325 Tab) 1 tab TID PO 07/11/17 08:00 07/25/17 07:59 07/13/17 08:14 1 TAB Losartan Potassium (coZAAR TAB) 100 mg DAILY PO 07/11/17 08:00 08/10/17 07:59 07/13/17 08:11 100 MG Multivitamins/ Minerals (Multivitamin W/ Minerals Tab) 1 tab DAILY PO 07/11/17 08:00 08/10/17 07:59 07/13/17 08:12 1 TAB Nitrofurantoin Macrocrystals (Macrobid Cap) 100 mg BID PO 07/11/17 08:00 08/10/17 07:59 07/13/17 08:12 100 MG Ondansetron HCl (Zofran Tab) 8 mg BID PO 07/11/17 08:00 08/10/17 07:59 07/13/17 08:12 8 MG Oxybutynin Chloride (Ditropan-Xl Tab) 10 mg QAM PO 07/11/17 08:00 08/10/17 07:59 07/13/17 08:11 10 MG Pantoprazole Sodium (Protonix Tab) 40 mg DAILY PO 07/11/17 08:00 08/10/17 07:59 07/13/17 08:12 40 MG Potassium/ Phosphorus/Sodium (Phospha 250 Neutral 155-852-130 Mg) 1 tab QID PO 07/11/17 08:00 08/10/17 07:59 07/13/17 16:35 1 TAB Potassium Chloride (Klor-Con Tab) 40 meq DAILY PO 07/11/17 08:00 08/10/17 07:59 07/13/17 08:12 40 MEQ Prednisone (PredniSONE TAB) 50 mg DAILY PO 07/11/17 08:00 08/10/17 07:59 Future Hold 07/12/17 08:05 50 MG Sitagliptin Phosphate (Januvia Tab) 100 mg QAM PO 07/11/17 08:00 08/10/17 07:59 07/13/17 08:12 100 MG Sodium Chloride (Sodium Chloride 0.9% 10 ml Flush) 10 ml DAILY IV 07/11/17 08:00 08/10/17 07:59 07/13/17 08:10 10 ML Trimethoprim/ Sulfamethoxazole (Septra Ds 800/ 160MG Tab) 1 tab MoTh@0800 PO 07/11/17 08:00 08/10/17 07:59 07/11/17 10:22 1 TAB Miscellaneous (Fentanyl Patch Remove & Waste) 1 ea Q3D N/A 07/11/17 05:59 08/10/17 05:58 07/11/17 05:41 1 EA Miscellaneous Information (Check Fentanyl Patch Placement) 1 ea QS N/A 07/11/17 08:00 08/10/17 07:59 07/13/17 16:00 1 EA Furosemide (Lasix Tab) 20 mg NOW ONCE PO 07/11/17 15:00 07/11/17 15:01 DC 07/11/17 18:05 20 MG Furosemide 20 mg/ Syringe 2 ml @ 4 mls/min TODAY@1800 IV 07/11/17 18:00 07/11/17 20:00 DC 07/11/17 23:30 4 MLS/MIN Furosemide 20 mg/ Syringe 2 ml @ 4 mls/min DAILY IV 07/13/17 08:00 07/13/17 15:38 DC 07/13/17 08:10 4 MLS/MIN Furosemide (Lasix Oral Soln) 20 mg NOW STAT PO 07/12/17 11:25 07/12/17 11:26 DC 07/12/17 12:30 20 MG Insulin Aspart (novoLOG ASPART) SLIDING SCALE G... ACHS SC 07/13/17 06:30 08/12/17 06:29 07/13/17 12:53 2 UNITS Insulin Aspart (novoLOG ASPART) 10 units NOW ONCE SC 07/12/17 21:30 07/12/17 21:32 DC 07/12/17 22:11 10 UNITS Subjective Ms. Perez says she feels better today. Her energy is up and she ate better. She denies any bleeding or fevers. Review of Systems: Constitutional: No fever, No chills Eyes: No worsening of vision ENT: No unusual epistaxis Respiratory: No cough, No shortness of breath, No hemoptysis Cardiovascular: No chest pain Abdomen: No pain, No nausea, No vomiting, No GI bleeding Female : No dysuria, No hematuria Heme: No abnormal bleeding/bruising Vital Signs Vital Signs Past 12 Hours Date Time Temp Pulse Resp B/P (MAP) Pulse Ox O2 Delivery O2 Flow Rate FiO2 07/13/17 15:07 36.6 73 18 124/73 (90) 94 07/13/17 11:59 Room Air 07/13/17 11:18 36.6 61 18 137/79 (98) 97 07/13/17 07:15 36.4 55 20 145/73 (97) 97 Room Air Physical Exam Constitutional: Level of Distress: NAD, chronically ill Psychiatric: Mental Status: active & alert Orientation: oriented except where noted Head: with evidence of injury (She has an ecchymosis overlying her left forehead, above her eye) Neck: pertinent finding (she has a bruise on her lower right neck, in the area where she fell) Lungs: Respiratory Effort: no dyspnea Auscuitation: breath sounds normal Cardiovascular: Heart Auscultation: RRR Abdomen: Inspection & Palpation: soft, no tenderness, guarding & rebound Extremities: no edema Laboratory Last 24 Hours Test 07/12/17 18:23 07/12/17 20:29 07/12/17 20:31 07/13/17 05:27 Platelet Count 37 K/uL 26 K/uL Bedside Glucose 365 mg/dl 325 mg/dl White Blood Count 0.38 K/uL Red Blood Count 3.01 M/uL Hemoglobin 9.3 g/dL Hematocrit 26.7 % Mean Corpuscular Volume 88.7 fL Mean Corpuscular Hemoglobin 30.9 pg Mean Corpuscular Hemoglobin Concent 34.8 g/dl RDW Standard Deviation 50.8 fL RDW Coefficient of Variation 15.7 % Mean Platelet Volume 8.8 fL Sodium Level 138 mmol/L Potassium Level 4.0 mmol/L Chloride Level 100 mmol/L Carbon Dioxide Level 31 mmol/L Anion Gap 7.0 mmol/L Blood Urea Nitrogen 18 mg/dl Creatinine 0.87 mg/dl Est Creatinine Clear Calc Drug Dose 60.6 ml/min Estimated GFR () 75.5 Estimated GFR (Non- 65.2 BUN/Creatinine Ratio 21.0 Random Glucose 145 mg/dl Calcium Level 8.1 mg/dl Test 07/13/17 07:47 07/13/17 11:37 07/13/17 14:38 07/13/17 16:25 Bedside Glucose 134 mg/dl 142 mg/dl 169 mg/dl White Blood Count 0.12 K/uL Red Blood Count 3.14 M/uL Hemoglobin 10.0 g/dL Hematocrit 27.5 % Mean Corpuscular Volume 87.6 fL Mean Corpuscular Hemoglobin 31.8 pg Mean Corpuscular Hemoglobin Concent 36.4 g/dl Platelet Count 22 K/uL Mean Platelet Volume 10.8 fL RDW Standard Deviation 50.4 fL RDW Coefficient of Variation 15.8 % Assessment & Plan As expected, Ms. Perez's counts have continued to decline. Her platelets came up with transfusion and her hemoglobin held steady, but she is now neutropenic. She should be close to her rojas and her counts should begin to improve in the next few days. In the meantime, I would continue supportive care and transfusions for Hgb <7.5 or Plts <15K.
[2017-07-13] MEDS: HYDROCODONE/ACETAMOPHEN 5/325MG TAB PO PRN (17:14)
[2017-07-13] MEDS ORDERED: MAGNESIUM HYDROXIDE SUSP 30 ML UDC PO PRN (18:45)
[2017-07-13] MEDS ORDERED: POLYETHYLENE (MIRALAX) 17 GM PACK PO PRN (18:45)
[2017-07-13 18:48] LABS: COMPLETE YES
[2017-07-13] MEDS: ALLOPURINOL 100 MG TAB PO SCH (20:59)
[2017-07-13] MEDS ORDERED: BISMUTH SUBSALICYLATE SUSP PO PRN (21:00)
[2017-07-14] VITALS (21 sets, daily range): BP systolic 115–175; BP diastolic 60–97; PULSE 84–121; TEMP 36.4–38.4; O2SAT 91–96
[2017-07-14] MEDS: ONDANSETRON INJ 2 MG/ML 2 ML VIAL IV PRN ×2 (03:59→14:37)
[2017-07-14] MEDS: HYDROCODONE/ACETAMOPHEN 5/325MG TAB PO PRN (04:00)
[2017-07-14] MEDS: FENTANYL 25 MCG/HR TDSY TD SCH (05:30)
[2017-07-14] MEDS: FENTANYL PATCH REMOVE & WASTE SCH (05:30)
[2017-07-14 06:57] LABS: BUN/CREATININE RATIO 21.8 (10-20); CALCIUM 8.1 mg/dl (8.5-10.1); CREATININE 0.87 mg/dl (0.60-1.20); POTASSIUM 3.5 mmol/L (3.5-5.1)
[2017-07-14 07:13] LABS: INR 1.1 (0.9-1.1); PARTIAL THROMBOPLASTIN RATIO 1.1
[2017-07-14 07:28] LABS: HEMATOCRIT 26.3 % (37-47); MEAN CORPUSCULAR HEMOGLOBIN 31.4 pg (25-34); MEAN CORPUSCULAR HGB CONC 35.7 g/dl (32-36); MEAN PLATELET VOLUME 8.8 fL (7.4-10.4); PLATELET COUNT 12 K/uL (130-400); RED BLOOD COUNT 2.99 M/uL (4.2-5.4); WHITE BLOOD COUNT 0.08 K/uL (4.8-10.8)
[2017-07-14] MEDS ORDERED: FUROSEMIDE 40 MG TAB PO SCH (08:00)
[2017-07-14] MEDS: ACYCLOVIR 200 MG CAP PO SCH ×3 (08:00→22:03)
[2017-07-14] MEDS: SODIUM CHLORIDE 0.9% 10ML FLUSH IV SCH (08:00)
[2017-07-14] MEDS: FLUTICASONE PROPIONATE NA SPR 16 GM BTL NAE SCH (08:00)
[2017-07-14] MEDS: LIDODERM (LIDOCAINE) PATCH 5% TD SCH (08:00)
[2017-07-14] MEDS: POT PHOSPHATE MONOBASIC W/ SOD TAB PO SCH ×4 (08:00→22:05)
[2017-07-14] MEDS: ONDANSETRON 8 MG TAB PO SCH ×2 (08:24→22:03)
[2017-07-14] MEDS: DRONABINOL 2.5 MG CAP PO SCH (08:24)
[2017-07-14] MEDS: HYDROCODONE/ACETAMOPHEN 5/325MG TAB PO SCH ×4 (08:25→22:10)
[2017-07-14] MEDS: ALBUTEROL HFA 8 GM INHALER INH SCH ×5 (08:34→23:02)
[2017-07-14] MEDS: CHECK FENTANYL PATCH PLACEMENT SCH ×4 (08:35→23:53)
[2017-07-14] MEDS: INSULIN ASPART 100 UNITS/ML 3 ML PEN SC SCH ×4 (08:40→22:16)
[2017-07-14 08:41] LABS: COMPLETE YES; LYMPH ABS # 0.08 K/uL (1.2-3.4)
--- NOTE | 2017-07-14 09:12 | DIAGNOSTIC IMAGING REPORT ---
KUB CLINICAL HISTORY: abdominal pain, constipated, pancytopenia ?obstruction, bleeding pain COMPARISON STUDY: No previous studies for comparison. FINDINGS: Mild nonobstructive ileus. Inferior vena caval filter in position overlying the upper lumbar region. Left ureteral stent in position. 1.3 cm calcification left renal pelvis or left ureteral pelvic junction. 1.3 cm lower pole left renal calcifications. No significant right renal calcifications. IMPRESSION: 1. Mild nonobstructive ileus. 2. Left ureteral stent in good position. 3. Calcifications as described left ureteropelvic junction as well as lower pole left kidney. The above report was generated using voice recognition software. It may contain grammatical, syntax or spelling errors. Electronically signed by: Yoandy Nicolas M.D. 07/14/2017 9:11 AM Dictated Date/Time: 07/14/2017 9:08 AM
--- NOTE | 2017-07-14 10:27 | Family Medicine Progress Note ---
Progress Note Date of Service Jul 14, 2017. Subjective Pt evaluation today including: conversation w/ patient, conversation w/ family , physical exam Voiding: no voiding problems Patient was seen at the bedside. She complained of lower abdominal pain this morning. She was constipated yesterday and was given milk of mag. She did have bowel movement 4X over night. She also complains of nausea. Patient was given [place] and Zofran. KUB was ordered and showed nonobstructive ileus. She is doing good this afternoon and didn't complain of pain. When we went back to around again in the late afternoon, she starts to complain of pain again. Also nauseated. Constitutional: No fever Respiratory: No cough, No shortness of breath Abdomen: + pain, + nausea, + diarrhea, No vomiting, No GI bleeding Female : No hematuria Skin: No rash Medications Current Inpatient Medications Medications (Trade) Dose Ordered Sig/[place] Route Start Time Stop Time Status Last Admin Dose Admin Zolpidem Tartrate (Ambien Tab) 5 mg HSZ PRN PO 07/11/17 03:30 08/10/17 03:29 Ondansetron HCl (Zofran Inj) 4 mg Q6H PRN IV 07/11/17 03:30 08/10/17 03:29 07/14/17 03:59 4 MG Acetaminophen (Tylenol Tab) 500 mg Q4 PRN PO 07/11/17 05:00 08/10/17 04:59 Acyclovir (Zovirax Cap) 200 mg TID PO 07/11/17 08:00 08/10/17 07:59 07/13/17 20:58 200 MG Albuterol (Ventolin Hfa Inhaler) 2 puffs QID INH 07/11/17 08:00 08/10/17 07:59 Allopurinol (Zyloprim Tab) 200 mg QPM PO 07/11/17 21:00 08/10/17 20:59 07/13/17 20:59 200 MG Calcium Carbonate (Tums Chew Tab) 500 mg Q4 PRN PO 07/11/17 05:00 08/10/17 04:59 Docusate Sodium (coLACE CAP) 100 mg AMHS PO 07/11/17 08:00 08/10/17 07:59 07/13/17 20:57 100 MG Dronabinol (Marinol Cap) 2.5 mg QAM PO 07/11/17 08:00 08/10/17 07:59 07/14/17 08:24 2.5 MG Fentanyl (Duragesic Patch) 25 mcg Q72H TD 07/11/17 06:00 07/25/17 05:59 07/14/17 05:30 25 MCG Fluconazole (Diflucan Tab) 100 mg QAM PO 07/11/17 08:00 08/10/17 07:59 07/13/17 08:11 100 MG Fluticasone Propionate (Flonase Nasal [place]) 2 sprays DAILY VIGNESH 07/11/17 08:00 08/10/17 07:59 07/13/17 08:11 2 SPRAYS Folic Acid (Folvite Tab) 1 mg QAM PO 07/11/17 08:00 08/10/17 07:59 07/13/17 08:12 1 MG Heparin Sodium (Porcine) (Heparin 10 Unit/ ml 5 ml Flush) 5 ml DAILY FLUSH 07/11/17 08:00 08/10/17 07:59 07/14/17 05:28 10 ML Acetaminophen/ Hydrocodone Bitart ([place] 5/325 Tab) 1 tab TID PO 07/11/17 08:00 07/25/17 07:59 07/14/17 08:25 1 TAB Acetaminophen/ Hydrocodone Bitart ([place] 5/325 Tab) 1 tab Q4 PRN PO 07/11/17 05:00 07/25/17 04:59 07/14/17 04:00 1 TAB Lidocaine (Lidoderm Patch 5%) 1 patch QAM TD 07/11/17 08:00 08/10/17 07:59 Losartan Potassium (coZAAR TAB) 100 mg DAILY PO 07/11/17 08:00 08/10/17 07:59 07/13/17 08:11 100 MG Meclizine HCl (Antivert Tab) 25 mg TID PRN PO 07/11/17 05:00 08/10/17 04:59 07/13/17 17:48 25 MG Multivitamins/ Minerals (Multivitamin W/ Minerals Tab) 1 tab DAILY PO 07/11/17 08:00 08/10/17 07:59 07/13/17 08:12 1 TAB Nitrofurantoin Macrocrystals (Macrobid Cap) 100 mg BID PO 07/11/17 08:00 08/10/17 07:59 07/13/17 20:57 100 MG Ondansetron HCl (Zofran Tab) 4 mg Q6 PRN PO 07/11/17 05:00 08/10/17 04:59 Ondansetron HCl (Zofran Tab) 8 mg BID PO 07/11/17 08:00 08/10/17 07:59 07/14/17 08:24 8 MG Oxybutynin Chloride (Ditropan-Xl Tab) 10 mg QAM PO 07/11/17 08:00 08/10/17 07:59 07/13/17 08:11 10 MG Pantoprazole Sodium (Protonix Tab) 40 mg DAILY PO 07/11/17 08:00 08/10/17 07:59 07/13/17 08:12 40 MG Potassium/ Phosphorus/Sodium (Phospha 250 Neutral 155-852-130 Mg) 1 tab QID PO 07/11/17 08:00 08/10/17 07:59 07/13/17 20:56 1 TAB Potassium Chloride (Klor-Con Tab) 40 meq DAILY PO 07/11/17 08:00 08/10/17 07:59 07/13/17 08:12 40 MEQ Prednisone (PredniSONE TAB) 50 mg DAILY PO 07/11/17 08:00 08/10/17 07:59 Future Hold 07/12/17 08:05 50 MG Prochlorperazine (Compazine Supp) 25 mg Q6H PRN [place] 07/11/17 05:00 08/10/17 04:59 Senna/Docusate Sodium (Senokot S Tab) 1 tab Q24H PRN PO 07/11/17 05:00 08/10/17 04:59 Sitagliptin Phosphate (Januvia Tab) 100 mg QAM PO 07/11/17 08:00 08/10/17 07:59 07/13/17 08:12 100 MG Sodium Chloride (Sodium Chloride 0.9% 10 ml Flush) 10 ml DAILY IV 07/11/17 08:00 08/10/17 07:59 07/13/17 08:10 10 ML Trimethoprim/ Sulfamethoxazole (Septra Ds 800/ 160MG Tab) 1 tab MoTh@0800 PO 07/11/17 08:00 08/10/17 07:59 07/11/17 10:22 1 TAB Miscellaneous (Fentanyl Patch Remove & Waste) 1 ea Q3D N/A 07/11/17 05:59 08/10/17 05:58 07/14/17 05:30 1 EA Miscellaneous Information (Check Fentanyl Patch Placement) 1 ea QS N/A 07/11/17 08:00 08/10/17 07:59 07/14/17 08:35 1 EA Miscellaneous (Remove Lidoderm Patch) 1 ea DAILY@21 N/A 07/11/17 21:00 08/10/17 20:59 07/13/17 20:58 1 EA Insulin Aspart (novoLOG ASPART) SLIDING SCALE G... ACHS SC 07/13/17 06:30 08/12/17 06:29 07/14/17 12:55 3 UNITS Glucose (Glucose 40% Gel) 15-30 GRAMS 15 GRAMS... UD PRN PO 07/12/17 21:45 08/11/17 21:44 Glucose (Glucose Chew Tab) 4-8 Tablets 4 Tabl... UD PRN PO 07/12/17 21:45 08/11/17 21:44 Dextrose (Dextrose 50% 50ML Syringe) 25-50ML OF 50% DW IV FOR... UD PRN IV 07/12/17 21:45 08/11/17 21:44 Glucagon (Glucagon Inj) 1 mg UD PRN SQ 07/12/17 21:45 08/11/17 21:44 Furosemide (Lasix Tab) 40 mg QAM PO 07/14/17 08:00 08/13/17 07:59 Magnesium Hydroxide (Milk Of Magnesia Susp) 30 ml Q6H PRN PO 07/13/17 18:45 08/12/17 18:44 07/13/17 23:59 30 ML Polyethylene (Miralax Powder Packet) 17 gm DAILY PRN PO 07/13/17 18:45 08/12/17 18:44 Objective Vital Signs Date Time Temp Pulse Resp B/P (MAP) Pulse Ox O2 Delivery O2 Flow Rate FiO2 07/14/17 11:35 Room Air 07/14/17 11:32 36.7 119 18 129/75 (93) 93 Room Air 07/14/17 08:44 36.7 108 24 125/81 (96) 07/14/17 07:49 36.9 109 18 160/76 (104) 91 Room Air 07/14/17 03:59 36.9 99 18 162/88 (112) 96 Room Air 07/14/17 00:28 36.4 84 18 150/84 (106) 96 Room Air 07/14/17 00:00 94 Room Air 07/13/17 16:00 94 Room Air 07/13/17 15:07 36.6 73 18 124/73 (90) 94 Physical Exam General Appearance: WD/WN, no apparent distress Neck: supple, trachea midline Respiratory/Chest: chest non-tender, lungs clear, normal breath sounds, no respiratory distress, no accessory muscle use Cardiovascular: regular rate, rhythm Abdomen: normal bowel sounds, soft, + tenderness (mild tender at lower abdomen , but no guarding ) Extremities: non-tender, no calf tenderness, + pedal edema (significant b/l pitting edema of LE, improving ) Neurologic/Psychiatric: alert, oriented x 3 Skin: normal color, warm/dry, no rash Laboratory Results Results Past 24 Hours Test 07/13/17 14:38 07/13/17 16:25 07/13/17 19:34 07/14/17 05:25 Range/Units White Blood Count 0.12 0.08 4.8-10.8 K/uL Red Blood Count 3.14 2.99 4.2-5.4 M/uL Hemoglobin 10.0 9.4 12.0-16.0 g/dL Hematocrit 27.5 26.3 37-47 % Mean Corpuscular Volume 87.6 88.0 80-100 fL Mean Corpuscular Hemoglobin 31.8 31.4 25-34 pg Mean Corpuscular Hemoglobin Concent 36.4 35.7 32-36 g/dl Platelet Count 22 12 130-400 K/uL Mean Platelet Volume 10.8 8.8 7.4-10.4 fL RDW Standard Deviation 50.4 51.0 36.4-46.3 fL RDW Coefficient of Variation 15.8 15.9 11.5-14.5 % Neutrophils % (Manual) 6.0 0.0 % Lymphocytes % (Manual) 86.0 100.0 % Monocytes % (Manual) 6.0 % Eosinophils % (Manual) 2.0 % Neutrophils # (Manual) 0.01 0.00 1.4-6.5 K/uL Total Absolute Neutrophils 0.01 0.00 1.4-6.5 K/uL Lymphocytes # (Manual) 0.10 0.08 1.2-3.4 K/uL Total Absolute Lymphocytes 0.10 0.08 1.2-3.4 K/uL Monocytes # (Manual) 0.01 0.11-0.59 K/uL Eosinophils # (Manual) 0.00 0-0.5 K/uL Bedside Glucose 169 187 70-90 mg/dl Prothrombin Time 12.0 9.0-12.0 SECONDS Prothromb Time International Ratio 1.1 0.9-1.1 Activated Partial Thromboplast Time 29.2 21.0-31.0 SECONDS Partial Thromboplastin Ratio 1.1 Sodium Level 138 136-145 mmol/L Potassium Level 3.5 3.5-5.1 mmol/L Chloride Level 99 98-107 mmol/L Carbon Dioxide Level 31 21-32 mmol/L Anion Gap 8.0 3-11 mmol/L Blood Urea Nitrogen 19 7-18 mg/dl Creatinine 0.87 0.60-1.20 mg/dl Est Creatinine Clear Calc Drug Dose 60.6 ml/min Estimated GFR () 75.5 Estimated GFR (Non- 65.2 BUN/Creatinine Ratio 21.8 10-20 Random Glucose 182 70-99 mg/dl Calcium Level 8.1 8.5-10.1 mg/dl Test 07/14/17 07:31 07/14/17 11:15 Range/Units Bedside Glucose 206 190 70-90 mg/dl Assessment and Plan This is a 77 yo f with a history of an aggressive B cell lymphoma requiring chemotherapy that is s/p head injury and pancytopenia. Patient hgb dropped to 6.8. S/p 2 units of pRBC and platelet. FOBT is neg. PT/OT worked with her yesterday and she did well. She is neutropenic, this morning her WBC was 0.08. Patient was complaining of abdominal discomfort/pain this morning. She was constipated yesterday, gave milk of mag yesterday and she had total 4 BM over night. Denies melena, hematochezia or hematuria. KUB showed mild nonobstructive ileus. Patient was given [place] and Zofran in the morning. Lasix was stop given patient was tachycardiac. Start her on NSS @100mls/hr. Will transfuse 2 units of platelet given plt <15 *Abdominal pain - KUB showed mild nonobstructive ileus. - Given thrombocytopenia and possible hemorrhage will order CT of abd. She won't be able tolerate contrast so will order without contrast - FOBT, and C.diff (she had total 5 watery stool over night) - Continue to follow * Mechanical fall, s/p head injury in the presence of thrombocytopenia - CT of head and cervical spine was WNL - Given that patient has thrombocytopenia, she was admitted for further observation * Pancytopenia secondary to chemotherapy - Her WBC went down to 0.08 - Transfuse 2 units of plt - Will continue to monitor daily - s/p 2 units of pRBC, Hgb is stable - s/p 2 units of plt, it is >15 - Patient was seen by Heme/Onc, Dr Clark states PLT transfuse for < 15 and p RBC for hgb < 8 - Given her drop in hgb somewhat precipitous, Dr. Clark recommended FOBT. FOBT negative * Lymphoma - Hem/ onc was consulted, agreed with transfusion of pRBC for now - prophylaxis for immunosupp and multiple MDRO infections: fluconzaole, bactrim, acyclovir and nitrofurantoin - port on right side * Diabetes - BSG AC HS, her last glucose level was 142 - continue sitagliptin - on SSI * HTN - continue losartan * Neurogenic Bladder - continue oxybutinin * Bilateral LE edema - Patient has significant b/l LE edema. - Will hold Lasix for now, given tachycardia - Monitor I/O and daily weight and BMP * Back pain/ left hip pain; chronic - using fentanyl and [place] regularly * Vertigo - has a tendency to have vertigo after pills in am - continue meclizine * DVT Prophylaxis - h/o dvt however pancytopenia; SCD Resident Physician Supervision Note: I was present with Dr. Red during the history and exam. I discussed the case with the resident and agree with the findings and plan as documented in the note. Any exceptions or clarifications are listed here: Upon examination patient this afternoon, she complains of abdominal pain which seems to be more in the lower quadrants than in the epigastric region. She has no tenderness (nor does she complain of increased pain) with my palpation of the abdomen. She does cautiously not to push too hard as she feels she will have to urinate if I do so. She states she feels as if she needs to have a bowel movement, and she did have a small bowel movement just prior to her examination, but this did not seem to resolve her discomfort. She remains afebrile. She is slightly tachycardic. She is normotensive. She continues to have significant neutropenia and thrombocytopenia. Her hemoglobin has remained stable. Plan #1 Agree with transfusion of platelets #2 CT of the abdomen #3 given slight tachycardia, recommend holding additional Lasix in beginning IV fluids. #4 will discuss with hematology; further orders pending results of CT scan. Documented By: Koffi Gupta
[2017-07-14] MEDS: DOCUSATE SODIUM 100 MG CAP PO SCH ×3 (11:32→23:02)
[2017-07-14] MEDS: LOSARTAN POTASSIUM 50 MG TAB PO SCH (13:43)
[2017-07-14] MEDS: SITAGLIPTIN 100 MG TAB PO SCH (13:43)
[2017-07-14] MEDS: OXYBUTYNIN CHLORIDE 5 MG TABCR PO SCH (13:43)
[2017-07-14] MEDS: FLUCONAZOLE 100 MG TAB PO SCH (13:43)
[2017-07-14] MEDS: NITROFURANTOIN MONOHYDRATE 100 MG CAP PO SCH ×2 (13:44→22:05)
[2017-07-14] MEDS: PANTOprazole SOD 40 MG TAB PO SCH (13:44)
[2017-07-14] MEDS: SULFAMETHOXAZOLE/TRIMETHOPRIM DS 800/160MG TAB PO SCH (13:44)
[2017-07-14] MEDS: CEROVITE ADV FORMULA TAB PO SCH (13:44)
[2017-07-14] MEDS: POTASSIUM CHLORIDE 20 MEQ TABCR PO SCH (13:44)
--- NOTE | 2017-07-14 15:36 | DIAGNOSTIC IMAGING REPORT ---
ABD/PELVIS NO IV OR ORAL CONT CT DOSE: 1077.42 mGycm HISTORY: Pain Abd pain, pancytopenia TECHNIQUE: Multiaxial CT images of the abdomen and pelvis were performed without contrast. A dose lowering technique was utilized adhering to the principles of ALARA. COMPARISON STUDY: 04/21/2017 FINDINGS: Mild bibasilar dependent atelectasis. Configuration of liver is unremarkable. Right kidney is negative for hydronephrosis. Interval placement of an inferior vena caval filter. Left-sided nephrocalcinosis with interval placement of a left ureteral stent. Interval improvement in the appearance of the left kidney although there continues to be on upper pole cyst as well as considerable cortical thinning. Bowel pattern overall is nonobstructive. Bladder is midline. There are scattered colonic diverticuli with no evidence for diverticulitis. IMPRESSION: 1. Interval placement of a left ureteral stent with decompression of the previously described hydronephrosis. 2. Interval placement of an inferior vena caval filter. 3. No acute process the abdomen or pelvis at the current time. The above report was generated using voice recognition software. It may contain grammatical, syntax or spelling errors. Electronically signed by: Yoandy Nicolas M.D. 07/14/2017 3:34 PM Dictated Date/Time: 07/14/2017 3:30 PM
[2017-07-14] MEDS: SODIUM CHLORIDE 0.9% 1000ML 1,000 ML IV SCH ×2 (15:47→22:01)
--- NOTE | 2017-07-14 17:08 | Hematology/Oncology Prog Note ---
Hematology/Onc Progress Note Date of Service Jul 14, 2017. Diagnoses High-grade NHL Chemotherapy-induced pancytopenia Fall Medications Medications Administered Medications (Trade) Dose Ordered Sig/[place] Route Start Time Stop Time Status Last Admin Dose Admin Ondansetron HCl (Zofran Inj) 4 mg Q6H PRN IV 07/11/17 03:30 08/10/17 03:29 07/14/17 14:37 4 MG Acyclovir (Zovirax Cap) 200 mg TID PO 07/11/17 08:00 08/10/17 07:59 07/13/17 20:58 200 MG Allopurinol (Zyloprim Tab) 200 mg QPM PO 07/11/17 21:00 08/10/17 20:59 07/13/17 20:59 200 MG Docusate Sodium (coLACE CAP) 100 mg AMHS PO 07/11/17 08:00 08/10/17 07:59 07/13/17 20:57 100 MG Dronabinol (Marinol Cap) 2.5 mg QAM PO 07/11/17 08:00 08/10/17 07:59 07/14/17 08:24 2.5 MG Fentanyl (Duragesic Patch) 25 mcg Q72H TD 07/11/17 06:00 07/25/17 05:59 07/14/17 05:30 25 MCG Fluconazole (Diflucan Tab) 100 mg QAM PO 07/11/17 08:00 08/10/17 07:59 07/13/17 08:11 100 MG Fluticasone Propionate (Flonase Nasal [place]) 2 sprays DAILY VIGNESH 07/11/17 08:00 08/10/17 07:59 07/13/17 08:11 2 SPRAYS Folic Acid (Folvite Tab) 1 mg QAM PO 07/11/17 08:00 08/10/17 07:59 07/13/17 08:12 1 MG Furosemide (Lasix Tab) 20 mg QAM PO 07/11/17 08:00 07/12/17 11:04 DC 07/12/17 08:05 20 MG Heparin Sodium (Porcine) (Heparin 10 Unit/ ml 5 ml Flush) 5 ml DAILY FLUSH 07/11/17 08:00 08/10/17 07:59 07/14/17 05:28 10 ML Acetaminophen/ Hydrocodone Bitart (Ethel 5/325 Tab) 1 tab TID PO 07/11/17 08:00 07/25/17 07:59 07/14/17 14:38 1 TAB Acetaminophen/ Hydrocodone Bitart (Ethel 5/325 Tab) 1 tab Q4 PRN PO 07/11/17 05:00 07/25/17 04:59 07/14/17 04:00 1 TAB Losartan Potassium (coZAAR TAB) 100 mg DAILY PO 07/11/17 08:00 08/10/17 07:59 07/13/17 08:11 100 MG Meclizine HCl (Antivert Tab) 25 mg TID PRN PO 07/11/17 05:00 08/10/17 04:59 07/13/17 17:48 25 MG Multivitamins/ Minerals (Multivitamin W/ Minerals Tab) 1 tab DAILY PO 07/11/17 08:00 08/10/17 07:59 07/13/17 08:12 1 TAB Nitrofurantoin Macrocrystals (Macrobid Cap) 100 mg BID PO 07/11/17 08:00 08/10/17 07:59 07/13/17 20:57 100 MG Ondansetron HCl (Zofran Tab) 8 mg BID PO 07/11/17 08:00 08/10/17 07:59 07/14/17 08:24 8 MG Oxybutynin Chloride (Ditropan-Xl Tab) 10 mg QAM PO 07/11/17 08:00 08/10/17 07:59 07/13/17 08:11 10 MG Pantoprazole Sodium (Protonix Tab) 40 mg DAILY PO 07/11/17 08:00 08/10/17 07:59 07/13/17 08:12 40 MG Potassium/ Phosphorus/Sodium (Phospha 250 Neutral 155-852-130 Mg) 1 tab QID PO 07/11/17 08:00 08/10/17 07:59 07/13/17 20:56 1 TAB Potassium Chloride (Klor-Con Tab) 40 meq DAILY PO 07/11/17 08:00 08/10/17 07:59 07/13/17 08:12 40 MEQ Prednisone (PredniSONE TAB) 50 mg DAILY PO 07/11/17 08:00 08/10/17 07:59 Future Hold 07/12/17 08:05 50 MG Sitagliptin Phosphate (Januvia Tab) 100 mg QAM PO 07/11/17 08:00 08/10/17 07:59 07/13/17 08:12 100 MG Sodium Chloride (Sodium Chloride 0.9% 10 ml Flush) 10 ml DAILY IV 07/11/17 08:00 08/10/17 07:59 07/13/17 08:10 10 ML Trimethoprim/ Sulfamethoxazole (Septra Ds 800/ 160MG Tab) 1 tab MoTh@0800 PO 07/11/17 08:00 08/10/17 07:59 07/11/17 10:22 1 TAB Miscellaneous (Fentanyl Patch Remove & Waste) 1 ea Q3D N/A 07/11/17 05:59 08/10/17 05:58 07/14/17 05:30 1 EA Miscellaneous Information (Check Fentanyl Patch Placement) 1 ea QS N/A 07/11/17 08:00 08/10/17 07:59 07/14/17 08:35 1 EA Miscellaneous (Remove Lidoderm Patch) 1 ea DAILY@21 N/A 07/11/17 21:00 08/10/17 20:59 07/13/17 20:58 1 EA Furosemide (Lasix Tab) 20 mg NOW ONCE PO 07/11/17 15:00 07/11/17 15:01 DC 07/11/17 18:05 20 MG Furosemide 20 mg/ Syringe 2 ml @ 4 mls/min TODAY@1800 IV 07/11/17 18:00 07/11/17 20:00 DC 07/11/17 23:30 4 MLS/MIN Furosemide 20 mg/ Syringe 2 ml @ 4 mls/min DAILY IV 07/13/17 08:00 07/13/17 15:38 DC 07/13/17 08:10 4 MLS/MIN Furosemide (Lasix Oral Soln) 20 mg NOW STAT PO 07/12/17 11:25 07/12/17 11:26 DC 07/12/17 12:30 20 MG Insulin Aspart (novoLOG ASPART) SLIDING SCALE G... ACHS SC 07/13/17 06:30 08/12/17 06:29 07/14/17 12:55 3 UNITS Insulin Aspart (novoLOG ASPART) 10 units NOW ONCE SC 07/12/17 21:30 07/12/17 21:32 DC 07/12/17 22:11 10 UNITS Magnesium Hydroxide (Milk Of Magnesia Susp) 30 ml Q6H PRN PO 07/13/17 18:45 08/12/17 18:44 07/13/17 23:59 30 ML Sodium Chloride 1,000 ml @ 75 mls/hr [id number] IV 07/14/17 14:45 08/13/17 14:44 07/14/17 15:47 75 MLS/HR Subjective Ms. Perez looks significantly worse today. Starting yesterday afternoon, she began to have increasing abdominal pain and bloating. She also had multiple bowel movements overnight and today, though she tells me they're small in volume. She denies any bleeding. A non-contrast CT was done earlier today that did not reveal any acute findings. She is visibly uncomfortable, though her pain is poorly localized in her abdomen. Review of Systems: Constitutional: + weakness, + fatigue, No fever, No chills Respiratory: No cough, No shortness of breath Cardiovascular: No chest pain Abdomen: + pain, + diarrhea, No vomiting, No GI bleeding Female : No dysuria, No hematuria Heme: No abnormal bleeding/bruising Vital Signs Vital Signs Past 12 Hours Date Time Temp Pulse Resp B/P (MAP) Pulse Ox O2 Delivery O2 Flow Rate FiO2 07/14/17 14:44 37.1 120 24 138/84 (102) 96 Room Air 07/14/17 11:35 Room Air 07/14/17 11:32 36.7 119 18 129/75 (93) 93 Room Air 07/14/17 08:44 36.7 108 24 125/81 (96) 07/14/17 07:49 36.9 109 18 160/76 (104) 91 Room Air Physical Exam Constitutional: Level of Distress: moderate distress (due to pain), chronically ill Psychiatric: Mental Status: active & alert Orientation: oriented except where noted Head: with evidence of injury (She has an ecchymosis overlying her left forehead, above her eye) Neck: pertinent finding (she has a bruise on her lower right neck, in the area where she fell) Lungs: Respiratory Effort: no dyspnea Auscuitation: breath sounds normal Cardiovascular: Heart Auscultation: RRR Abdomen: Inspection & Palpation: soft, LUQ tenderness (She is diffusely tender in all quadrants, but somewhat moreso L>R. No rebound or guarding) Extremities: no edema Laboratory Last 24 Hours Test 07/13/17 19:34 07/14/17 05:25 07/14/17 07:31 07/14/17 11:15 Bedside Glucose 187 mg/dl 206 mg/dl 190 mg/dl White Blood Count 0.08 K/uL Red Blood Count 2.99 M/uL Hemoglobin 9.4 g/dL Hematocrit 26.3 % Mean Corpuscular Volume 88.0 fL Mean Corpuscular Hemoglobin 31.4 pg Mean Corpuscular Hemoglobin Concent 35.7 g/dl Platelet Count 12 K/uL Mean Platelet Volume 8.8 fL RDW Standard Deviation 51.0 fL RDW Coefficient of Variation 15.9 % Neutrophils % (Manual) 0.0 % Lymphocytes % (Manual) 100.0 % Neutrophils # (Manual) 0.00 K/uL Total Absolute Neutrophils 0.00 K/uL Lymphocytes # (Manual) 0.08 K/uL Total Absolute Lymphocytes 0.08 K/uL Prothrombin Time 12.0 SECONDS Prothromb Time International Ratio 1.1 Activated Partial Thromboplast Time 29.2 SECONDS Partial Thromboplastin Ratio 1.1 Sodium Level 138 mmol/L Potassium Level 3.5 mmol/L Chloride Level 99 mmol/L Carbon Dioxide Level 31 mmol/L Anion Gap 8.0 mmol/L Blood Urea Nitrogen 19 mg/dl Creatinine 0.87 mg/dl Est Creatinine Clear Calc Drug Dose 60.6 ml/min Estimated GFR () 75.5 Estimated GFR (Non- 65.2 BUN/Creatinine Ratio 21.8 Random Glucose 182 mg/dl Calcium Level 8.1 mg/dl Test 07/14/17 14:35 07/14/17 16:44 Bedside Glucose 226 mg/dl Assessment & Plan Ms. Perez looks substantially worse than she did yesterday. I am concerned about an infectious colitis or possibly neutropenic enterocolitis. A contrast enhanced CT would help distinguish these entities better and I would get one this evening. Treatment would include supportive care and antibiotics, but prompt treatment would be critical if these findings are present, as colitis in neutropenic patients can be fatal. Stool studies have been sent, which is good. She will need close observation overnight tonight.
[2017-07-14] MEDS ORDERED: PIPERACILL/TAZOBAC CONSULT ACTIVE PRN (17:45)
[2017-07-14] MEDS ORDERED: PIPERACILL/TAZOBAC IV 4.5 GM in DEXTROSE 5% 100ML IV ONE (18:00)
[2017-07-14] MEDS ORDERED: SODIUM CHLORIDE 0.9% 1000ML 1,000 ML IV ONE ×2 (19:45→22:15)
[2017-07-14 19:52] LABS: BUN/CREATININE RATIO 19.5 (10-20); CREATININE 1.1 mg/dl (0.60-1.20); POTASSIUM 3.6 mmol/L (3.5-5.1)
[2017-07-14] MEDS ORDERED: OPTIRAY 320 IV PRN (20:00)
[2017-07-14] MEDS ORDERED: DiphenhydrAMINE HCL 50 MG/ML VIAL IV PRN (20:30)
[2017-07-14 21:00] LABS: URINE APPEARANCE CLOUDY (CLEAR); URINE BILIRUBIN NEG (NEG); URINE COLOR DK YELLOW; URINE EPITHELIAL CELL AUTO >30 /lpf (0-5); URINE NITRITE POS (NEG); URINE PH 7.5 (4.5-7.5); URINE SPECIFIC GRAVITY 1.017 (1.000-1.030); UROBILINOGEN NEG (NEG)
[2017-07-14 21:01] LABS: MANUAL MICROSCOPIC REQUIRED? NO; REVIEW REQ? YES
[2017-07-14 21:02] LABS: SULFASALICYLIC ACID POS (NEG)
--- NOTE | 2017-07-14 21:36 | DIAGNOSTIC IMAGING REPORT ---
ABD/PELVIS IV AND ORAL CONT CLINICAL HISTORY: 77 years-old Female presenting with abdominal pain, pancytopenia, ?colitis. TECHNIQUE: Multidetector CT of the abdomen and pelvis was performed after the administration of intravenous contrast. IV contrast: 93 mL of Optiray 320. A dose lowering technique was used consistent with the principles of ALARA (as low as reasonably achievable). COMPARISON: 07/14/2017. CT DOSE (mGy.cm): The estimated cumulative dose is 1014.35 mGycm. FINDINGS: [employer] topogram: IVC filter and left ureteral stent noted. A right internal jugular catheter terminates in the right atrium. Lung bases: Dependent opacities at the lung bases, likely atelectasis or scarring. 3 mm solid pulmonary nodule in the right middle lobe (series 5 image 11). Normal heart size. Coronary artery calcification. Liver: Normal morphology. No liver lesion. Patent hepatic vasculature. Biliary: No intrahepatic or extrahepatic biliary ductal dilatation. Gallbladder surgically absent. Pancreas: Mild parenchymal atrophy. Spleen: Normal. Adrenal glands: Normal. Kidneys and ureters: Left ureteral stent in place terminating in a upper pole calyx and the urinary bladder. Diffuse urothelial thickening and enhancement is evident in the left ureter and left renal collecting system. The ureteral stent adequately decompresses the left renal collecting system. Diffuse parenchymal atrophy of the left kidney evident. Large calculus at the atrophic and scarred lower pole as well as at the left ureteropelvic junction. These are unchanged in position from prior exam. Right kidney normal. No hydronephrosis. Right ureter normal. Bladder: Normal. Pelvic organs: Uterus and ovaries normal. Bowel: Normal appendix. No bowel obstruction. Small hiatal hernia. Peritoneal cavity: No free fluid or intraperitoneal gas. Vasculature: Atherosclerosis of the normal caliber abdominal aorta. IVC patent. Infrarenal IVC filter in place. Lymph nodes: No enlarged lymph nodes in the abdomen or pelvis. Abdominal wall: Fat-containing ventral hernia in the lower abdomen. No associated inflammatory change or fluid to suggest strangulation. Relatively wide neck. Musculoskeletal: Degenerative changes of the spine. Degenerative changes of the symphysis pubis and sacroiliac joints. Endplate changes of L1. Osteopenia. IMPRESSION: 1. Extensive urothelial thickening and enhancement of the left renal collecting system and left ureter. This may in part be related to the presence of the ureteral stent, however, infection is also possible. Correlate with urinalysis. 2. Unchanged position of the large left ureteropelvic junction calculus and a left lower pole calculus. The left ureteral stent adequately decompresses the left renal collecting system. 3. Chronic atrophy and scarring of the left kidney. 4. 3 mm solid pulmonary nodule in the right middle lobe. Follow-up per Fleischner Society 2017 recommendations below. Please refer to below summary of Fleischner Society 2017 recommendations for follow-up of incidental CT nodules (Reg Vera et al. Guidelines for management of incidental pulmonary nodules detected on CT images: From the Fleischner Society 2017. Radiology 2017; 284: 228-243.) SOLID NODULES Single nodule; size <6 mm * Low risk patients: No routine follow-up * High risk patients: Optional CT at 12 months Single nodule; size 6-8 mm * Low risk patients: CT at 6-12 months, then consider CT at 18-24 months * High risk patients: CT at 6-12 months, then at 18-24 months Single nodule; size >8 mm * Either low or high risk patients: Considered CT at 3 months, PET/CT, or tissue sampling Multiple nodules; size <6 mm * Low risk patients: No routine follow up * High risk patients: Optional CT at 12 months Multiple nodules; size 6-8 mm * Low risk patients: CT at 3-6 months, then consider CT at 18-24 months * High risk patients: CT at 3-6 months, then at 18-24 months Multiple nodules; size >8 mm * Low risk patients: CT at 3-6 months, then consider at 18-24 months * High risk patients: CT at 3-6 months, then at 18-24 months Note: These guidelines apply to incidental nodules. These guidelines did not apply to patients younger than 35 years, immunocompromised patients, or patients with cancer. * Low risk patients: Minimal or absent history of smoking and/or other known risk factors * High risk patients: History of smoking, exposure to other carcinogens, emphysema, fibrosis, upper lobe location, family history of lung cancer, etc. * If a nodule up to 8 mm is partly solid or is ground glass further follow-up is required after 24 months to exclude possible slow growing adenocarcinoma SUBSOLID NODULES Single ground-glass nodule * Nodule size < 6 mm: No routine follow-up * Nodule size > or = 6 mm: CT at 6-12 months to confirm persistence, then CT every 2 years until 5 years Single part-solid nodule * Nodule size < 6 mm: No routine follow-up * Nodules size > or = 6 mm: CT at 3-6 months to confirm persistence. If unchanged and solid component remains < 6 mm, annual CT should be performed for 5 years Multiple nodules * Nodule size < 6 mm: CT at 3-6 months. If stable, consider CT at 2 and 4 years. * Nodules size > or = 6 mm: CT at 3-6 months. Subsequent management based on the most suspicious nodule(s) Electronically signed by: Thony Weeks M.D. 07/14/2017 9:35 PM Dictated Date/Time: 07/14/2017 9:25 PM
[2017-07-14] MEDS: ALLOPURINOL 100 MG TAB PO SCH (22:03)
[2017-07-14] MEDS ORDERED: SODIUM CHLORIDE 0.9% 1000ML 1,000 ML IV SCH (22:15)
[2017-07-14] MEDS: ACETAMINOPHEN 500 MG TAB PO PRN (22:59)
--- NOTE | 2017-07-14 23:06 | DIAGNOSTIC IMAGING REPORT ---
CHEST ONE VIEW PORTABLE CLINICAL HISTORY: 77 years-old Female presenting with fever. TECHNIQUE: Portable upright AP view of the chest was obtained. COMPARISON: 06/24/2017. FINDINGS: Double lumen tunneled right internal jugular catheter likely terminates in the superior vena cava. Atherosclerosis of the aortic arch. Slight interval decreased prominence of the cardiac silhouette. Prominent pulmonary vasculature, unchanged. Apparent increased prominence of apparent right mid to lower lung paramediastinal opacity. Bandlike opacity in the mid lungs. Osseous structures normal. Upper abdomen normal. IMPRESSION: 1. Suggestion of right mid to lower lung paramediastinal opacity, which could represent an infiltrate and would be concerning for pneumonia. Further confirmation with chest CT to be considered as clinically warranted. 2. Bilateral midlung atelectasis unchanged. Electronically signed by: Thony Weeks M.D. 07/14/2017 11:04 PM Dictated Date/Time: 07/14/2017 11:01 PM
--- NOTE | 2017-07-14 23:31 | Progress Note ---
Progress Note Date of Service Jul 14, 2017. Progress Note CT and UA reviewed, patient source most likely urinary; started on ertapenem as based on previous UA; bolus 2 L and NSS @ 100cc/h; discussed CT results with regards to infection however did not discuss new pulmonary nodule ( 3 mm in right middle lobe) as patient was feeling unwell at the visit; defer to AM team to discuss this with patient
[2017-07-14] MEDS: ERTAPENEM IV 1 GM in SODIUM CHLOR 0.9% AD-VAN 50ML 50 ML IV SCH (23:52)
[2017-07-15] MEDS ORDERED: PIPERACILL/TAZOBAC IV 4.5 GM in DEXTROSE 5% 100ML IV SCH ×2
[2017-07-15 02:47] LABS: BUN/CREATININE RATIO 20.2 (10-20); CALCIUM 7.6 mg/dl (8.5-10.1); CREATININE 0.99 mg/dl (0.60-1.20); POTASSIUM 3.4 mmol/L (3.5-5.1)
[2017-07-15] MEDS: MoRPHine SULFATE 2 MG/ML CARP IV PRN ×2 (02:49→06:44)
[2017-07-15 03:38] LABS: HEMATOCRIT 23.3 % (37-47); MEAN CELL VOLUME 88.6 fL (80-100); MEAN CORPUSCULAR HEMOGLOBIN 31.6 pg (25-34); MEAN CORPUSCULAR HGB CONC 35.6 g/dl (32-36); MEAN PLATELET VOLUME 8.7 fL (7.4-10.4); PLATELET COUNT 42 K/uL (130-400); RED BLOOD COUNT 2.63 M/uL (4.2-5.4); WHITE BLOOD COUNT 0.02 K/uL (4.8-10.8)
[2017-07-15 03:45] VITALS: BP 161/78; PULSE 111; TEMP 37.6; O2SAT 94
[2017-07-15 04:32] LABS: COMPLETE YES; LYMPH ABS # 0.02 K/uL (1.2-3.4)
[2017-07-15] MEDS: NSS + 20MEQ KCL 1000ML 1,000 ML IV SCH ×3 (04:59→23:52)
[2017-07-15 08:04] VITALS: BP 108/69; PULSE 128; TEMP 37.5; O2SAT 97
[2017-07-15] MEDS: ONDANSETRON INJ 2 MG/ML 2 ML VIAL IV PRN ×2 (08:07→22:45)
[2017-07-15] MEDS: INSULIN ASPART 100 UNITS/ML 3 ML PEN SC SCH ×5 (08:11→23:55)
[2017-07-15] MEDS: CHECK FENTANYL PATCH PLACEMENT SCH ×3 (08:14→23:45)
[2017-07-15] MEDS: ALBUTEROL HFA 8 GM INHALER INH SCH ×4 (09:00→22:12)
[2017-07-15] MEDS: DRONABINOL 2.5 MG CAP PO SCH (09:00)
[2017-07-15] MEDS: DOCUSATE SODIUM 100 MG CAP PO SCH ×2 (09:00→22:11)
[2017-07-15] MEDS: ONDANSETRON 8 MG TAB PO SCH (09:00)
[2017-07-15] MEDS: POTASSIUM CHLORIDE 20 MEQ TABCR PO SCH (09:00)
[2017-07-15] MEDS: LIDODERM (LIDOCAINE) PATCH 5% TD SCH (09:00)
[2017-07-15] MEDS: FLUTICASONE PROPIONATE NA SPR 16 GM BTL NAE SCH (09:00)
[2017-07-15] MEDS: CEROVITE ADV FORMULA TAB PO SCH (09:00)
[2017-07-15] MEDS: ACYCLOVIR 200 MG CAP PO SCH (09:00)
[2017-07-15] MEDS: POT PHOSPHATE MONOBASIC W/ SOD TAB PO SCH ×4 (10:02→22:12)
[2017-07-15] MEDS: SODIUM CHLORIDE 0.9% 10ML FLUSH IV SCH (10:02)
[2017-07-15] MEDS: HYDROCODONE/ACETAMOPHEN 5/325MG TAB PO SCH ×3 (10:03→22:18)
[2017-07-15] MEDS: FLUCONAZOLE 100 MG TAB PO SCH (10:03)
[2017-07-15] MEDS: SITAGLIPTIN 100 MG TAB PO SCH (10:03)
[2017-07-15] MEDS: OXYBUTYNIN CHLORIDE 5 MG TABCR PO SCH (10:43)
[2017-07-15] MEDS: LOSARTAN POTASSIUM 50 MG TAB PO SCH (10:43)
[2017-07-15 11:36] LABS: BUN/CREATININE RATIO 19.9 (10-20); CALCIUM 7.8 mg/dl (8.5-10.1); POTASSIUM 3.5 mmol/L (3.5-5.1)
[2017-07-15 12:01] VITALS: BP 137/92; PULSE 116; TEMP 38; O2SAT 92
--- NOTE | 2017-07-15 12:29 | Hematology/Oncology Prog Note ---
Hematology/Onc Progress Note Date of Service Jul 15, 2017. Diagnoses High-grade NHL Chemotherapy-induced pancytopenia Fall Medications Medications Administered Medications (Trade) Dose Ordered Sig/[place] Route Start Time Stop Time Status Last Admin Dose Admin Ondansetron HCl (Zofran Inj) 4 mg Q6H PRN IV 07/11/17 03:30 08/10/17 03:29 07/15/17 08:07 4 MG Acetaminophen (Tylenol Tab) 500 mg Q4 PRN PO 07/11/17 05:00 08/10/17 04:59 07/14/17 22:59 500 MG Acyclovir (Zovirax Cap) 200 mg TID PO 07/11/17 08:00 08/10/17 07:59 07/14/17 22:03 200 MG Allopurinol (Zyloprim Tab) 200 mg QPM PO 07/11/17 21:00 08/10/17 20:59 07/14/17 22:03 200 MG Docusate Sodium (coLACE CAP) 100 mg AMHS PO 07/11/17 08:00 08/10/17 07:59 07/13/17 20:57 100 MG Dronabinol (Marinol Cap) 2.5 mg QAM PO 07/11/17 08:00 08/10/17 07:59 07/14/17 08:24 2.5 MG Fentanyl (Duragesic Patch) 25 mcg Q72H TD 07/11/17 06:00 07/25/17 05:59 07/14/17 05:30 25 MCG Fluconazole (Diflucan Tab) 100 mg QAM PO 07/11/17 08:00 08/10/17 07:59 07/15/17 10:03 100 MG Fluticasone Propionate (Flonase Nasal [place]) 2 sprays DAILY VIGNESH 07/11/17 08:00 08/10/17 07:59 07/13/17 08:11 2 SPRAYS Folic Acid (Folvite Tab) 1 mg QAM PO 07/11/17 08:00 08/10/17 07:59 07/15/17 10:03 1 MG Furosemide (Lasix Tab) 20 mg QAM PO 07/11/17 08:00 07/12/17 11:04 DC 07/12/17 08:05 20 MG Heparin Sodium (Porcine) (Heparin 10 Unit/ ml 5 ml Flush) 5 ml DAILY FLUSH 07/11/17 08:00 08/10/17 07:59 07/15/17 10:01 5 ML Acetaminophen/ Hydrocodone Bitart ([place] 5/325 Tab) 1 tab TID PO 07/11/17 08:00 07/25/17 07:59 07/15/17 10:03 1 TAB Acetaminophen/ Hydrocodone Bitart ([place] 5/325 Tab) 1 tab Q4 PRN PO 07/11/17 05:00 07/25/17 04:59 07/14/17 04:00 1 TAB Losartan Potassium (coZAAR TAB) 100 mg DAILY PO 07/11/17 08:00 08/10/17 07:59 07/15/17 10:43 100 MG Meclizine HCl (Antivert Tab) 25 mg TID PRN PO 07/11/17 05:00 08/10/17 04:59 07/13/17 17:48 25 MG Multivitamins/ Minerals (Multivitamin W/ Minerals Tab) 1 tab DAILY PO 07/11/17 08:00 08/10/17 07:59 07/13/17 08:12 1 TAB Nitrofurantoin Macrocrystals (Macrobid Cap) 100 mg BID PO 07/11/17 08:00 08/10/17 07:59 07/14/17 22:05 100 MG Ondansetron HCl (Zofran Tab) 8 mg BID PO 07/11/17 08:00 08/10/17 07:59 07/14/17 22:03 8 MG Oxybutynin Chloride (Ditropan-Xl Tab) 10 mg QAM PO 07/11/17 08:00 08/10/17 07:59 07/15/17 10:43 10 MG Pantoprazole Sodium (Protonix Tab) 40 mg DAILY PO 07/11/17 08:00 08/10/17 07:59 07/13/17 08:12 40 MG Potassium/ Phosphorus/Sodium (Phospha 250 Neutral 155-852-130 Mg) 1 tab QID PO 07/11/17 08:00 08/10/17 07:59 07/15/17 10:02 1 TAB Potassium Chloride (Klor-Con Tab) 40 meq DAILY PO 07/11/17 08:00 08/10/17 07:59 07/13/17 08:12 40 MEQ Prednisone (PredniSONE TAB) 50 mg DAILY PO 07/11/17 08:00 08/10/17 07:59 Future Hold 07/12/17 08:05 50 MG Sitagliptin Phosphate (Januvia Tab) 100 mg QAM PO 07/11/17 08:00 08/10/17 07:59 07/15/17 10:03 100 MG Sodium Chloride (Sodium Chloride 0.9% 10 ml Flush) 10 ml DAILY IV 07/11/17 08:00 08/10/17 07:59 07/15/17 10:02 10 ML Trimethoprim/ Sulfamethoxazole (Septra Ds 800/ 160MG Tab) 1 tab MoTh@0800 PO 07/11/17 08:00 08/10/17 07:59 07/11/17 10:22 1 TAB Miscellaneous (Fentanyl Patch Remove & Waste) 1 ea Q3D N/A 07/11/17 05:59 08/10/17 05:58 07/14/17 05:30 1 EA Miscellaneous Information (Check Fentanyl Patch Placement) 1 ea QS N/A 07/11/17 08:00 08/10/17 07:59 07/15/17 08:14 1 EA Miscellaneous (Remove Lidoderm Patch) 1 ea DAILY@21 N/A 07/11/17 21:00 08/10/17 20:59 07/14/17 22:03 1 EA Furosemide (Lasix Tab) 20 mg NOW ONCE PO 07/11/17 15:00 07/11/17 15:01 DC 07/11/17 18:05 20 MG Furosemide 20 mg/ Syringe 2 ml @ 4 mls/min TODAY@1800 IV 07/11/17 18:00 07/11/17 20:00 DC 07/11/17 23:30 4 MLS/MIN Furosemide 20 mg/ Syringe 2 ml @ 4 mls/min DAILY IV 07/13/17 08:00 07/13/17 15:38 DC 07/13/17 08:10 4 MLS/MIN Furosemide (Lasix Oral Soln) 20 mg NOW STAT PO 07/12/17 11:25 07/12/17 11:26 DC 07/12/17 12:30 20 MG Insulin Aspart (novoLOG ASPART) SLIDING SCALE G... ACHS SC 07/13/17 06:30 08/12/17 06:29 07/15/17 12:23 2 UNITS Insulin Aspart (novoLOG ASPART) 10 units NOW ONCE SC 07/12/17 21:30 07/12/17 21:32 DC 07/12/17 22:11 10 UNITS Magnesium Hydroxide (Milk Of Magnesia Susp) 30 ml Q6H PRN PO 07/13/17 18:45 08/12/17 18:44 07/13/17 23:59 30 ML Sodium Chloride 1,000 ml @ 75 mls/hr [id number] IV 07/14/17 14:45 07/15/17 06:18 DC 07/14/17 22:01 75 MLS/HR Piperacillin Sod/ Tazobactam Sod 4.5 gm/Dextrose 120 ml @ 200 mls/hr 1800 ONCE IV 07/14/17 18:00 07/14/17 18:35 DC 07/14/17 18:52 200 MLS/HR Morphine Sulfate (MoRPHine SULFATE INJ) 2 mg Q4H PRN IV 07/14/17 18:45 07/28/17 18:44 07/15/17 06:44 2 MG Sodium Chloride 1,000 ml @ 999 mls/hr Q1H1M ONCE IV 07/14/17 19:45 07/14/17 20:45 DC 07/14/17 20:31 999 MLS/HR Ertapenem 1 gm/ Sodium Chloride 50 ml @ 120 mls/hr Q24H IV 07/15/17 00:00 07/25/17 00:00 07/14/17 23:52 120 MLS/HR Sodium Chloride 1,000 ml @ 999 mls/hr Q1H1M ONCE IV 07/14/17 22:15 07/14/17 23:32 DC 07/14/17 22:15 999 MLS/HR Sodium Chloride 1,000 ml @ 100 mls/hr Q10H IV 07/14/17 22:15 07/15/17 06:18 DC 07/14/17 23:15 100 MLS/HR Potassium Chloride/Sodium Chloride 1,000 ml @ 100 mls/hr Q10H IV 07/15/17 05:00 08/14/17 04:59 07/15/17 04:59 100 MLS/HR Subjective Ms. Perez looks acutely ill again today. Her CT revealed bladder and ureteral thickening concerning for a UTI but no evidence of bowel edema. A UA, while contaminated, did have bacteria and blood. As a result, she was started on broad spectrum IV antibiotics for sepsis of a urologic origin. Review of Systems: Constitutional: + fever, + weakness, + fatigue ENT: No unusual epistaxis Respiratory: No cough, No shortness of breath Cardiovascular: No chest pain Abdomen: + pain, No nausea, No vomiting Female : No dysuria Neurologic: No weakness, No numbness/tingling Heme: No abnormal bleeding/bruising Vital Signs Vital Signs Past 12 Hours Date Time Temp Pulse Resp B/P (MAP) Pulse Ox O2 Delivery O2 Flow Rate FiO2 07/15/17 12:01 38.0 116 18 137/92 (107) 92 Room Air 07/15/17 08:04 37.5 128 18 108/69 (82) 97 07/15/17 08:00 Room Air 07/15/17 03:45 37.6 111 20 161/78 (105) 94 Room Air 07/15/17 03:45 Room Air Physical Exam Constitutional: Level of Distress: moderate distress (due to pain), chronically ill Psychiatric: Mental Status: active & alert Orientation: oriented except where noted Head: with evidence of injury (She has an ecchymosis overlying her left forehead, above her eye) Neck: pertinent finding (she has a bruise on her lower right neck, in the area where she fell) Lungs: Respiratory Effort: no dyspnea Auscuitation: breath sounds normal Cardiovascular: Heart Auscultation: RRR Abdomen: Inspection & Palpation: soft, LUQ tenderness (She is diffusely tender in all quadrants, but somewhat moreso L>R. No rebound or guarding) Extremities: no edema Laboratory Last 24 Hours Test 07/14/17 16:44 07/14/17 18:56 07/14/17 20:40 07/14/17 21:59 Bedside Glucose 226 mg/dl Sodium Level 137 mmol/L Potassium Level 3.6 mmol/L Chloride Level 101 mmol/L Carbon Dioxide Level 27 mmol/L Anion Gap 9.0 mmol/L Blood Urea Nitrogen 21 mg/dl Creatinine 1.10 mg/dl Est Creatinine Clear Calc Drug Dose 47.9 ml/min Estimated GFR () 56.9 Estimated GFR (Non- 49.1 BUN/Creatinine Ratio 19.5 Random Glucose 189 mg/dl Lactic Acid Level 2.9 mmol/L 2.0 mmol/L Calcium Level 8.0 mg/dl Total Bilirubin 0.9 mg/dl Direct Bilirubin 0.3 mg/dl Aspartate Amino Transf (AST/SGOT) 13 U/L Alanine Aminotransferase (ALT/SGPT) 35 U/L Alkaline Phosphatase 105 U/L Total Protein 4.8 gm/dl Albumin 2.3 gm/dl Lipase 39 U/L Urine Color DK YELLOW Urine Appearance CLOUDY Urine pH 7.5 Urine Specific [place] 1.017 Urine Protein 1+ Urine Glucose (UA) TRACE Urine Ketones NEG Urine Occult Blood 2+ Urine Nitrite POS Urine Bilirubin NEG Urine Urobilinogen NEG Urine Leukocyte Esterase TRACE Urine WBC (Auto) 5-10 /hpf Urine RBC (Auto) 10-30 /hpf Urine Hyaline Casts (Auto) 1-5 /lpf Urine Epithelial Cells (Auto) >30 /lpf Urine Bacteria (Auto) NEG Urine Renal Epithelial Cells 5-10 /lpf Urine Yeast (Auto) BUDDING Test 07/14/17 22:09 07/15/17 00:15 07/15/17 02:00 07/15/17 07:53 Bedside Glucose 202 mg/dl 208 mg/dl Stool Occult Blood POSITIVE White Blood Count 0.02 K/uL Red Blood Count 2.63 M/uL Hemoglobin 8.3 g/dL Hematocrit 23.3 % Mean Corpuscular Volume 88.6 fL Mean Corpuscular Hemoglobin 31.6 pg Mean Corpuscular Hemoglobin Concent 35.6 g/dl Platelet Count 42 K/uL Mean Platelet Volume 8.7 fL RDW Standard Deviation 52.2 fL RDW Coefficient of Variation 16.2 % Neutrophils % (Manual) 20.0 % Lymphocytes % (Manual) 80.0 % Neutrophils # (Manual) 0.00 K/uL Total Absolute Neutrophils 0.00 K/uL Lymphocytes # (Manual) 0.02 K/uL Total Absolute Lymphocytes 0.02 K/uL Red Blood Cell Morphology Unremarkable Sodium Level 139 mmol/L Potassium Level 3.4 mmol/L Chloride Level 104 mmol/L Carbon Dioxide Level 28 mmol/L Anion Gap 7.0 mmol/L Blood Urea Nitrogen 20 mg/dl Creatinine 0.99 mg/dl Est Creatinine Clear Calc Drug Dose 53.3 ml/min Estimated GFR () 64.6 Estimated GFR (Non- 55.7 BUN/Creatinine Ratio 20.2 Random Glucose 163 mg/dl Calcium Level 7.6 mg/dl Test 07/15/17 11:06 07/15/17 11:26 Sodium Level 141 mmol/L Potassium Level 3.5 mmol/L Chloride Level 105 mmol/L Carbon Dioxide Level 29 mmol/L Anion Gap 7.0 mmol/L Blood Urea Nitrogen 20 mg/dl Creatinine 1.00 mg/dl Est Creatinine Clear Calc Drug Dose 53.2 ml/min Estimated GFR () 63.8 Estimated GFR (Non- 55.1 BUN/Creatinine Ratio 19.9 Random Glucose 146 mg/dl Calcium Level 7.8 mg/dl Bedside Glucose 174 mg/dl Assessment & Plan Ms. Perez has sepsis from a urinary tract infection. 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 She is on appropriate antibiotics and is being volume resuscitated. Given that she has an active and severe infection, I think adding GCSF to attempt to boost recovery of her WBCs is appropriate. Otherwise, I would continue supportive care as per her primary team.
--- NOTE | 2017-07-15 12:32 | Clinical Documentation Query ---
NUNU Noyola : CLINICAL DOCUMENTATION QUERY Patient is a 77 year old female admitted for evaluation and treatment of pancytopenia due to chemotherapy in the setting of lymphoma and MDRO. Patient was transferred to a higher level of care on 07/14. She was febrile and tachycardic with a lactic acid of 2.9. She was transfused, had a CT of the abdomen to seek infectious process, Lasix was held in favor of IVF boluses. ID was consulted and patient was started on Ertapenem. Please clarify as clinically appropriate. Thank you. In your clinical opinion is this patient being managed for: (X ) Sepsis secondary to UTI ( ) Other explanation of clinical findings (Please Explain) ( ) Unable to determine (Please Define) ( ) Need to Discuss ( ) Not Agree The medical record reflects the following clinical findings, treatment, and risk factors. Clinical Indicators: As above Treatment:She was transfused, had a CT of the abdomen to seek infectious process, Lasix was held in favor of IVF boluses. ID was consulted and patient was started on Ertapenem Risk Factors: Age, immunosuppression/chemotherapy/lymphoma associated pancytopenia Please clarify and document your clinical opinion in the progress notes and discharge summary. Terms such as "probable", "suspected", "likely", "questionable", "possible", or "still to be ruled out" are acceptable. IF IN AGREEMENT, YOU MUST DOCUMENT ABOVE DIAGNOSTIC STATEMENT IN DAILY PROGRESS NOTES AND DISCHARGE SUMMARY. This document is not part of the patient's record. Thank You, Teodoro Garza, RAMIRO [phone]
[2017-07-15] MEDS: FILGRASTIM 480 MCG/1.6 ML VIAL SC SCH (14:25)
[2017-07-15] MEDS ORDERED: VANCOMYCIN CONSULT ACTIVE PRN (15:15)
--- NOTE | 2017-07-15 15:29 | Medical Consult ---
Consultation Date of Consultation: Jul 15, 2017. Attending Physician: Koffi Gupta D.O. Reason for Consultation: Complicated UTI, history of multidrug resistant infection History of Present Illness 77-year-old female with history of high-grade lymphoma with bone marrow involvement, currently receiving chemotherapy, with treatment complicated by severe cytopenias requiring multiple transfusions. She has a history of complicated urinary tract infection with multidrug resistant E coli in the setting of staghorn calculus. She was admitted after suffering a fall, and was found to be profoundly neutropenic with abnormal urinalysis with pyuria. She was started on broad-spectrum therapy if 1st with Zosyn and now ertapenem. Blood cultures are no growth to date, urine culture is pending. Chest x-ray done today suggests the possibility of developing pneumonia. Continues to run fever. Complaining of lower abdominal pain, Past Medical/Surgical History Medical Problems: (1) Head injury Status: Acute (2) Hypokalemia Status: Acute (3) Hypomagnesemia Status: Acute (4) Neutropenia Status: Acute (5) Pancytopenia Status: Acute (6) Pancytopenia Status: Acute (7) Pancytopenia Status: Acute (8) Sepsis Status: Acute (9) Somnolence Status: Acute (10) UTI (urinary tract infection) Status: Acute Medical Problems: (1) E-coli UTI (2) Head injury (3) Leukocytosis (4) Lymphoma (5) Neutropenia (6) Neutropenic fever (7) Weakness Family History No pertinent family history Social History Smoking Status: Never Smoker Smokeless Tobacco Use: No Alcohol Use: none Drug Use: none Marital Status: Occupation Status: retired Allergies Coded Allergies: Cephalosporins (Unverified Allergy, Intermediate, BREATHING PROBLEMS, ) Ciprofloxacin (Verified Allergy, Intermediate, RASH, 07/05/17) Phlebitis Penicillins (Verified Allergy, Mild, HIVES, 07/05/17) Current Inpatient Medications Current Inpatient Medications Medications (Trade) Dose Ordered Sig/[place] Route Start Time Stop Time Status Last Admin Dose Admin Zolpidem Tartrate (Ambien Tab) 5 mg HSZ PRN PO 07/11/17 03:30 08/10/17 03:29 Ondansetron HCl (Zofran Inj) 4 mg Q6H PRN IV 07/11/17 03:30 08/10/17 03:29 07/15/17 08:07 4 MG Acetaminophen (Tylenol Tab) 500 mg Q4 PRN PO 07/11/17 05:00 08/10/17 04:59 07/14/17 22:59 500 MG Albuterol (Ventolin Hfa Inhaler) 2 puffs QID INH 07/11/17 08:00 08/10/17 07:59 Allopurinol (Zyloprim Tab) 200 mg QPM PO 07/11/17 21:00 08/10/17 20:59 07/14/17 22:03 200 MG Calcium Carbonate (Tums Chew Tab) 500 mg Q4 PRN PO 07/11/17 05:00 08/10/17 04:59 Docusate Sodium (coLACE CAP) 100 mg AMHS PO 07/11/17 08:00 08/10/17 07:59 07/13/17 20:57 100 MG Dronabinol (Marinol Cap) 2.5 mg QAM PO 07/11/17 08:00 08/10/17 07:59 07/14/17 08:24 2.5 MG Fentanyl (Duragesic Patch) 25 mcg Q72H TD 07/11/17 06:00 07/25/17 05:59 07/14/17 05:30 25 MCG Fluticasone Propionate (Flonase Nasal [place]) 2 sprays DAILY VIGNESH 07/11/17 08:00 08/10/17 07:59 07/13/17 08:11 2 SPRAYS Heparin Sodium (Porcine) (Heparin 10 Unit/ ml 5 ml Flush) 5 ml DAILY FLUSH 07/11/17 08:00 08/10/17 07:59 07/15/17 10:01 5 ML Acetaminophen/ Hydrocodone Bitart ([place] 5/325 Tab) 1 tab TID PO 07/11/17 08:00 07/25/17 07:59 07/15/17 14:24 1 TAB Acetaminophen/ Hydrocodone Bitart ([place] 5/325 Tab) 1 tab Q4 PRN PO 07/11/17 05:00 07/25/17 04:59 07/14/17 04:00 1 TAB Lidocaine (Lidoderm Patch 5%) 1 patch QAM TD 07/11/17 08:00 08/10/17 07:59 Losartan Potassium (coZAAR TAB) 100 mg DAILY PO 07/11/17 08:00 08/10/17 07:59 07/15/17 10:43 100 MG Meclizine HCl (Antivert Tab) 25 mg TID PRN PO 07/11/17 05:00 08/10/17 04:59 07/13/17 17:48 25 MG Multivitamins/ Minerals (Multivitamin W/ Minerals Tab) 1 tab DAILY PO 07/11/17 08:00 08/10/17 07:59 07/13/17 08:12 1 TAB Nitrofurantoin Macrocrystals (Macrobid Cap) 100 mg BID PO 07/11/17 08:00 08/10/17 07:59 Future Hold 07/14/17 22:05 100 MG Ondansetron HCl (Zofran Tab) 4 mg Q6 PRN PO 07/11/17 05:00 08/10/17 04:59 Oxybutynin Chloride (Ditropan-Xl Tab) 10 mg QAM PO 07/11/17 08:00 08/10/17 07:59 07/15/17 10:43 10 MG Potassium/ Phosphorus/Sodium (Phospha 250 Neutral 155-852-130 Mg) 1 tab QID PO 07/11/17 08:00 08/10/17 07:59 07/15/17 14:25 1 TAB Potassium Chloride (Klor-Con Tab) 40 meq DAILY PO 07/11/17 08:00 08/10/17 07:59 07/13/17 08:12 40 MEQ Prednisone (PredniSONE TAB) 50 mg DAILY PO 07/11/17 08:00 08/10/17 07:59 Future Hold 07/12/17 08:05 50 MG Prochlorperazine (Compazine Supp) 25 mg Q6H PRN TN 07/11/17 05:00 08/10/17 04:59 Senna/Docusate Sodium (Senokot S Tab) 1 tab Q24H PRN PO 07/11/17 05:00 08/10/17 04:59 Sitagliptin Phosphate (Januvia Tab) 100 mg QAM PO 07/11/17 08:00 08/10/17 07:59 07/15/17 10:03 100 MG Sodium Chloride (Sodium Chloride 0.9% 10 ml Flush) 10 ml DAILY IV 07/11/17 08:00 9/13/17 07:59 07/15/17 10:02 10 ML Miscellaneous (Fentanyl Patch Remove & Waste) 1 ea Q3D N/A 07/11/17 05:59 08/10/17 05:58 07/14/17 05:30 1 EA Miscellaneous Information (Check Fentanyl Patch Placement) 1 ea QS N/A 07/11/17 08:00 08/10/17 07:59 07/15/17 08:14 1 EA Miscellaneous (Remove Lidoderm Patch) 1 ea DAILY@21 N/A 07/11/17 21:00 08/10/17 20:59 07/14/17 22:03 1 EA Insulin Aspart (novoLOG ASPART) SLIDING SCALE G... ACHS SC 07/13/17 06:30 08/12/17 06:29 07/15/17 12:23 2 UNITS Glucose (Glucose 40% Gel) 15-30 GRAMS 15 GRAMS... UD PRN PO 07/12/17 21:45 08/11/17 21:44 Glucose (Glucose Chew Tab) 4-8 Tablets 4 Tabl... UD PRN PO 07/12/17 21:45 08/11/17 21:44 Dextrose (Dextrose 50% 50ML Syringe) 25-50ML OF 50% DW IV FOR... UD PRN IV 07/12/17 21:45 08/11/17 21:44 Glucagon (Glucagon Inj) 1 mg UD PRN SQ 07/12/17 21:45 08/11/17 21:44 Magnesium Hydroxide (Milk Of Magnesia Susp) 30 ml Q6H PRN PO 07/13/17 18:45 08/12/17 18:44 07/13/17 23:59 30 ML Polyethylene (Miralax Powder Packet) 17 gm DAILY PRN PO 07/13/17 18:45 08/12/17 18:44 Morphine Sulfate (MoRPHine SULFATE INJ) 2 mg Q4H PRN IV 07/14/17 18:45 07/28/17 18:44 07/15/17 06:44 2 MG Ioversol (Optiray 320) 100 ml UD PRN IV 07/14/17 20:00 07/18/17 19:59 Diphenhydramine HCl (Benadryl Inj) 12.5 mg Q6H PRN IV 07/14/17 20:30 08/13/17 20:29 Ertapenem 1 gm/ Sodium Chloride 50 ml @ 120 mls/hr Q24H IV 07/15/17 00:00 07/25/17 00:00 07/14/17 23:52 120 MLS/HR Potassium Chloride/Sodium Chloride 1,000 ml @ 100 mls/hr Q10H IV 07/15/17 05:00 08/14/17 04:59 07/15/17 15:10 100 MLS/HR Filgrastim (Neupogen Sq) 480 mcg DAILY SC 07/15/17 13:00 08/14/17 12:59 07/15/17 14:25 480 MCG Pantoprazole Sodium 40 mg/ Syringe 10 ml @ 5 mls/min DAILY@2100 IV 07/15/17 21:00 08/14/17 20:59 Fluconazole/ Sodium Chloride 100 mg/Prmx 50 ml @ 100 mls/hr QAM IV 07/16/17 09:00 08/15/17 08:59 Folic Acid 1 mg/ Syringe 10 ml @ 5 mls/min DAILY IV 07/16/17 09:00 08/15/17 08:59 Vancomycin HCl 1500 mg/Sodium Chloride 280 ml @ 125 mls/hr Q12 IV 07/15/17 21:00 07/25/17 20:59 UNV Vancomycin HCl (Consult) 1 ea UD PRN N/A 07/15/17 15:15 08/14/17 15:14 Acyclovir Sodium 500 mg/Dextrose 110 ml @ 100 mls/hr Q12 IV 07/15/17 21:00 08/14/17 20:59 Review of Systems Constitutional: + fever, + weakness, + fatigue Eyes: No problem reported ENT: No problem reported Respiratory: No problem reported Cardiovascular: No problem reported Abdomen: + pain, No vomiting, No diarrhea Musculoskeletal: No problem reported Genitourinary - Female: No problem reported Neurologic: No problem reported Psychiatric: No problem reported Endocrine: No problem reported Hematologic / Lymphatic: No problem reported Integumentary: No problem reported Allergic / Immunologic: No problem reported Physical Exam Date Time Temp Pulse Resp B/P (MAP) Pulse Ox O2 Delivery O2 Flow Rate FiO2 07/15/17 12:01 38.0 116 18 137/92 (107) 92 Room Air 8/18/17 12:00 Room Air 07/15/17 08:04 37.5 128 18 108/69 (82) 97 07/15/17 08:00 Room Air 07/15/17 03:45 37.6 111 20 161/78 (105) 94 Room Air 07/15/17 03:45 Room Air 07/15/17 00:00 Room Air 07/14/17 23:45 37.9 102 22 152/97 96 07/14/17 23:15 38.1 100 16 162/70 91 07/14/17 22:45 37.9 103 16 154/89 95 07/14/17 22:30 38.0 105 20 152/76 95 07/14/17 22:25 38.0 112 20 175/84 93 07/14/17 20:27 38.4 110 20 155/75 93 07/14/17 20:00 Room Air 07/14/17 19:30 37.8 99 16 139/60 93 07/14/17 18:25 37.3 113 18 139/78 (98) 91 Room Air 07/14/17 18:13 37.4 120 18 93 07/14/17 17:50 36.8 117 18 140/83 94 07/14/17 17:26 37.4 120 18 139/83 (101) Room Air 07/14/17 17:25 37.4 119 18 132/83 93 07/14/17 17:01 37.7 121 20 115/73 93 07/14/17 16:00 93 Room Air General Appearance: WD/WN, no apparent distress, + pertinent finding (Cranial hematoma) Head: normocephalic, atraumatic Eyes: normal inspection, EOMI, sclerae normal ENT: normal ENT inspection, pharynx normal Neck: supple, no adenopathy, thyroid normal, trachea midline Respiratory/Chest: chest non-tender, lungs clear, normal breath sounds, no respiratory distress Cardiovascular: regular rate, rhythm, no gallop, no murmur Abdomen/GI: normal bowel sounds, non tender, soft, no organomegaly Back: normal inspection, no CVA tenderness Extremities/Musculoskelatal: normal inspection, no calf tenderness Neurologic/Psych: alert, oriented x 3 Skin: normal color, warm/dry, no rash Lymphatic: no adenopathy Laboratory Results Date/Time Source Procedure Growth Status 07/14/17 21:59 Blood Blood Culture Pending Received 07/14/17 18:56 Blood Blood Culture Pending Received 07/14/17 20:40 Urine , Clean Catch Urine Culture - Final GREATER THAN THREE TYPES OF ORGANISMS... Complete Last 24 Hours Test 07/14/17 16:44 07/14/17 18:56 07/14/17 20:40 07/14/17 21:59 Bedside Glucose 226 mg/dl Sodium Level 137 mmol/L Potassium Level 3.6 mmol/L Chloride Level 101 mmol/L Carbon Dioxide Level 27 mmol/L Anion Gap 9.0 mmol/L Blood Urea Nitrogen 21 mg/dl Creatinine 1.10 mg/dl Est Creatinine Clear Calc Drug Dose 47.9 ml/min Estimated GFR () 56.9 Estimated GFR (Non- 49.1 BUN/Creatinine Ratio 19.5 Random Glucose 189 mg/dl Lactic Acid Level 2.9 mmol/L 2.0 mmol/L Calcium Level 8.0 mg/dl Total Bilirubin 0.9 mg/dl Direct Bilirubin 0.3 mg/dl Aspartate Amino Transf (AST/SGOT) 13 U/L Alanine Aminotransferase (ALT/SGPT) 35 U/L Alkaline Phosphatase 105 U/L Total Protein 4.8 gm/dl Albumin 2.3 gm/dl Lipase 39 U/L Urine Color DK YELLOW Urine Appearance CLOUDY Urine pH 7.5 Urine Specific [place] 1.017 Urine Protein 1+ Urine Glucose (UA) TRACE Urine Ketones NEG Urine Occult Blood 2+ Urine Nitrite POS Urine Bilirubin NEG Urine Urobilinogen NEG Urine Leukocyte Esterase TRACE Urine WBC (Auto) 5-10 /hpf Urine RBC (Auto) 10-30 /hpf Urine Hyaline Casts (Auto) 1-5 /lpf Urine Epithelial Cells (Auto) >30 /lpf Urine Bacteria (Auto) NEG Urine Renal Epithelial Cells 5-10 /lpf Urine Yeast (Auto) BUDDING Test 07/14/17 22:09 07/15/17 00:15 07/15/17 02:00 07/15/17 07:53 Bedside Glucose 202 mg/dl 208 mg/dl Stool Occult Blood POSITIVE White Blood Count 0.02 K/uL Red Blood Count 2.63 M/uL Hemoglobin 8.3 g/dL Hematocrit 23.3 % Mean Corpuscular Volume 88.6 fL Mean Corpuscular Hemoglobin 31.6 pg Mean Corpuscular Hemoglobin Concent 35.6 g/dl Platelet Count 42 K/uL Mean Platelet Volume 8.7 fL RDW Standard Deviation 52.2 fL RDW Coefficient of Variation 16.2 % Neutrophils % (Manual) 20.0 % Lymphocytes % (Manual) 80.0 % Neutrophils # (Manual) 0.00 K/uL Total Absolute Neutrophils 0.00 K/uL Lymphocytes # (Manual) 0.02 K/uL Total Absolute Lymphocytes 0.02 K/uL Red Blood Cell Morphology Unremarkable Sodium Level 139 mmol/L Potassium Level 3.4 mmol/L Chloride Level 104 mmol/L Carbon Dioxide Level 28 mmol/L Anion Gap 7.0 mmol/L Blood Urea Nitrogen 20 mg/dl Creatinine 0.99 mg/dl Est Creatinine Clear Calc Drug Dose 53.3 ml/min Estimated GFR () 64.6 Estimated GFR (Non- 55.7 BUN/Creatinine Ratio 20.2 Random Glucose 163 mg/dl Calcium Level 7.6 mg/dl Test 07/15/17 11:06 07/15/17 11:26 Sodium Level 141 mmol/L Potassium Level 3.5 mmol/L Chloride Level 105 mmol/L Carbon Dioxide Level 29 mmol/L Anion Gap 7.0 mmol/L Blood Urea Nitrogen 20 mg/dl Creatinine 1.00 mg/dl Est Creatinine Clear Calc Drug Dose 53.2 ml/min Estimated GFR () 63.8 Estimated GFR (Non- 55.1 BUN/Creatinine Ratio 19.9 Random Glucose 146 mg/dl Calcium Level 7.8 mg/dl Bedside Glucose 174 mg/dl ABD/PELVIS IV AND ORAL CONT CLINICAL HISTORY: 77 years-old Female presenting with abdominal pain, pancytopenia, ?colitis. TECHNIQUE: Multidetector CT of the abdomen and pelvis was performed after the administration of intravenous contrast. IV contrast: 93 mL of Optiray 320. A dose lowering technique was used consistent with the principles of ALARA (as low as reasonably achievable). COMPARISON: 07/14/2017. CT DOSE (mGy.cm): The estimated cumulative dose is 1014.35 mGycm. FINDINGS: Java Programmer Analyst topogram: IVC filter and left ureteral stent noted. A right internal jugular catheter terminates in the right atrium. Lung bases: Dependent opacities at the lung bases, likely atelectasis or scarring. 3 mm solid pulmonary nodule in the right middle lobe (series 5 image 11). Normal heart size. Coronary artery calcification. Liver: Normal morphology. No liver lesion. Patent hepatic vasculature. Biliary: No intrahepatic or extrahepatic biliary ductal dilatation. Gallbladder surgically absent. Pancreas: Mild parenchymal atrophy. Spleen: Normal. Adrenal glands: Normal. Kidneys and ureters: Left ureteral stent in place terminating in a upper pole calyx and the urinary bladder. Diffuse urothelial thickening and enhancement is evident in the left ureter and left renal collecting system. The ureteral stent adequately decompresses the left renal collecting system. Diffuse parenchymal atrophy of the left kidney evident. Large calculus at the atrophic and scarred lower pole as well as at the left ureteropelvic junction. These are unchanged in position from prior exam. Right kidney normal. No hydronephrosis. Right ureter normal. Bladder: Normal. Pelvic organs: Uterus and ovaries normal. Bowel: Normal appendix. No bowel obstruction. Small hiatal hernia. Peritoneal cavity: No free fluid or intraperitoneal gas. Vasculature: Atherosclerosis of the normal caliber abdominal aorta. IVC patent. Infrarenal IVC filter in place. Lymph nodes: No enlarged lymph nodes in the abdomen or pelvis. Abdominal wall: Fat-containing ventral hernia in the lower abdomen. No associated inflammatory change or fluid to suggest strangulation. Relatively wide neck. Musculoskeletal: Degenerative changes of the spine. Degenerative changes of the symphysis pubis and sacroiliac joints. Endplate changes of L1. Osteopenia. IMPRESSION: 1. Extensive urothelial thickening and enhancement of the left renal collecting system and left ureter. This may in part be related to the presence of the ureteral stent, however, infection is also possible. Correlate with urinalysis. 2. Unchanged position of the large left ureteropelvic junction calculus and a left lower pole calculus. The left ureteral stent adequately decompresses the left renal collecting system. 3. Chronic atrophy and scarring of the left kidney. 4. 3 mm solid pulmonary nodule in the right middle lobe. Follow-up per Fleischner Society 2017 recommendations below. Assessment & Plan 77-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 Also given indwelling central catheter must rule out central line infection as well. I have added vancomycin to cover gram-positive pathogens and would continue on ertapenem pending final culture results. Will follow.
[2017-07-15 15:51] VITALS: BP 127/57; PULSE 86; TEMP 37.3; O2SAT 94
--- NOTE | 2017-07-15 16:23 | Pharmacy Progress Note ---
Pharmacy Antibiotic Consult Date of Service: Jul 15, 2017. Pharmacy Dosing Scope Pharmacy is consulted to initiate [] IV dosing therapy, order appropriate labs and adjust drug dose/frequency. Subjective The patient is a 77 year old female admitted on Jul 11, 2017 at 03:25. Objective Height (Feet): 5 Height (Inches): 1.00 Weight (Kilograms): 101.500 Lab Results (24hrs): Test 07/14/17 18:56 07/14/17 20:40 07/14/17 21:59 07/15/17 00:15 Lactic Acid Level 2.9 mmol/L (0.4-2.0) 2.0 mmol/L (0.4-2.0) Total Bilirubin 0.9 mg/dl (0.2-1) Direct Bilirubin 0.3 mg/dl (0-0.2) Aspartate Amino Transf (AST/SGOT) 13 U/L (15-37) Alanine Aminotransferase (ALT/SGPT) 35 U/L (12-78) Alkaline Phosphatase 105 U/L (45-117) Total Protein 4.8 gm/dl (6.4-8.2) Albumin 2.3 gm/dl (3.4-5.0) Lipase 39 U/L (73-393) Urine Color DK YELLOW Urine Appearance CLOUDY (CLEAR) Urine pH 7.5 (4.5-7.5) Urine Specific [place] 1.017 (1.000-1.030) Urine Protein 1+ (NEG) Urine Glucose (UA) TRACE (NEG) Urine Ketones NEG (NEG) Urine Occult Blood 2+ (NEG) Urine Nitrite POS (NEG) Urine Bilirubin NEG (NEG) Urine Urobilinogen NEG (NEG) Urine Leukocyte Esterase TRACE (NEG) Urine WBC (Auto) 5-10 /hpf (0-5) Urine RBC (Auto) 10-30 /hpf (0-4) Urine Hyaline Casts (Auto) 1-5 /lpf (0-5) Urine Epithelial Cells (Auto) >30 /lpf (0-5) Urine Bacteria (Auto) NEG (NEG) Urine Renal Epithelial Cells 5-10 /lpf (0-5) Urine Yeast (Auto) BUDDING (NONE PRSENT) Stool Occult Blood POSITIVE (NEGATIVE) Test 07/15/17 02:00 07/15/17 07:53 07/15/17 11:06 07/15/17 11:26 White Blood Count 0.02 K/uL (4.8-10.8) Red Blood Count 2.63 M/uL (4.2-5.4) Hemoglobin 8.3 g/dL (12.0-16.0) Hematocrit 23.3 % (37-47) Mean Corpuscular Volume 88.6 fL (80-100) Mean Corpuscular Hemoglobin 31.6 pg (25-34) Mean Corpuscular Hemoglobin Concent 35.6 g/dl (32-36) Platelet Count 42 K/uL (130-400) Mean Platelet Volume 8.7 fL (7.4-10.4) RDW Standard Deviation 52.2 fL (36.4-46.3) RDW Coefficient of Variation 16.2 % (11.5-14.5) Neutrophils % (Manual) 20.0 % Lymphocytes % (Manual) 80.0 % Neutrophils # (Manual) 0.00 K/uL (1.4-6.5) Total Absolute Neutrophils 0.00 K/uL (1.4-6.5) Lymphocytes # (Manual) 0.02 K/uL (1.2-3.4) Total Absolute Lymphocytes 0.02 K/uL (1.2-3.4) Red Blood Cell Morphology Unremarkable Sodium Level 139 mmol/L (136-145) 141 mmol/L (136-145) Potassium Level 3.4 mmol/L (3.5-5.1) 3.5 mmol/L (3.5-5.1) Chloride Level 104 mmol/L (98-107) 105 mmol/L (98-107) Carbon Dioxide Level 28 mmol/L (21-32) 29 mmol/L (21-32) Anion Gap 7.0 mmol/L (3-11) 7.0 mmol/L (3-11) Blood Urea Nitrogen 20 mg/dl (7-18) 20 mg/dl (7-18) Creatinine 0.99 mg/dl (0.60-1.20) 1.00 mg/dl (0.60-1.20) Est Creatinine Clear Calc Drug Dose 53.3 ml/min 53.2 ml/min Estimated GFR () 64.6 63.8 Estimated GFR (Non- 55.7 55.1 BUN/Creatinine Ratio 20.2 (10-20) 19.9 (10-20) Random Glucose 163 mg/dl (70-99) 146 mg/dl (70-99) Calcium Level 7.6 mg/dl (8.5-10.1) 7.8 mg/dl (8.5-10.1) Bedside Glucose 208 mg/dl (70-90) 174 mg/dl (70-90) Micro Results: Date/Time Source Procedure Growth Status 07/14/17 21:59 Blood Blood Culture Pending Received 07/14/17 14:25 Stool C.difficile Toxin B Gene (PCR) - Final No C. difficile toxin B gene detected Complete 07/14/17 20:40 Urine , Clean Catch Urine Culture - Final GREATER THAN THREE TYPES OF ORGANISMS... Complete PREVIOUS 06/24 URINE CULTURE: MDRO E. COLI SENSITIVE TO ERTAPENEM Recent Pertinent Medications Acyclovir 500 mg q12H, Ertapenem 1 gm q24H, Fluconazole 100 mg q24H Assessment & Plan Assessment: * 77 yo F with PMH of lymphoma, currently on chemotherapy with most recent dose in Early June, DM2, obesity, hx DVT, pancytopenia * Recent urine culture with MDR E. Coli sensitive to ertapenem * Possible developing pneumonia * WBC 0.02/0 neut * SCr 1.0, estimate T1/2 ~ 14 hours * Loading dose: 25 mg/kg- vancomycin 2500 mg x 1 Plan: * Maintenance vancomycin 1250 mg q18H * Trough scheduled for 07/18 @ 1530 Goal trough level estimate: between 15-20 mcg/mL. Pharmacy will continue to follow and will adjust dose/frequency as necessary. Thank you
[2017-07-15] MEDS ORDERED: PHARMACY GLYCEMIC MGMT CONSULT SCH (16:25)
[2017-07-15] MEDS ORDERED: VANCOMYCIN INJ 2,500 MG in SODIUM CHLORIDE 0.9% 500ML 500 ML IV ONE (16:30)
--- NOTE | 2017-07-15 17:01 | Pharmacy Progress Note ---
Glycemic Control Intl Consult Date of Service Jul 15, 2017. Scope Glycemic Pharmacist consulted by Dr Gupta on 07/15/17 for glycemic control and to write orders per [facility] inpatient glycemic control protocol Objective Weight (Kilograms): 101.500 Accuchecks BSG (last 24hrs): Test 07/14/17 16:44 07/14/17 18:56 07/14/17 22:09 07/15/17 02:00 Bedside Glucose 226 mg/dl (70-90) 202 mg/dl (70-90) Random Glucose 189 mg/dl (70-99) 163 mg/dl (70-99) Test 07/15/17 07:53 07/15/17 11:06 07/15/17 11:26 07/15/17 16:12 Bedside Glucose 208 mg/dl (70-90) 174 mg/dl (70-90) 200 mg/dl (70-90) Random Glucose 146 mg/dl (70-99) Laboratory Data (last 24hrs) Test 07/14/17 18:56 07/15/17 02:00 07/15/17 11:06 Anion Gap 9.0 mmol/L 7.0 mmol/L 7.0 mmol/L BUN/Creatinine Ratio 19.5 20.2 19.9 Blood Urea Nitrogen 21 mg/dl 20 mg/dl 20 mg/dl Creatinine 1.10 mg/dl 0.99 mg/dl 1.00 mg/dl Potassium Level 3.6 mmol/L 3.4 mmol/L 3.5 mmol/L Sodium Level 137 mmol/L 139 mmol/L 141 mmol/L White Blood Count 0.02 K/uL Red Blood Count 2.63 M/uL Hemoglobin 8.3 g/dL Hematocrit 23.3 % Mean Corpuscular Volume 88.6 fL Mean Corpuscular Hemoglobin 31.6 pg Mean Corpuscular Hemoglobin Concent 35.6 g/dl Platelet Count 42 K/uL Mean Platelet Volume 8.7 fL HbA1c 04/19/17 6.7% per [employer] Recent Pertinent Medications Outpatient Anti-diabetic Regimen: * Januvia 100 mg daily * A1c = repeat pending 07/16/17 The patient is currently receiving: * Basal insulin: none * Correctional Insulin: Novolog Correction per scale ACHS Goal Range: Low 110 mg/dL - High 140 mg/dL Correction Factor: 20 mg/dL/unit * Prandial insulin: Per carb ratio of 1 unit per 10 grams CHO consumed * Oral Agents: Januvia 100 mg daily Risk Factors for Insulin Resistance: * Steroids: no * Infection: febrile neutropenia, complicated UTI- on ertapenem, vancomycin, acyclovir changing to IV, fluconazole changing to IV * Pressors: no * IVF: NS + KCl @ 100 ml/hr * Recent Surgery: no * Diet: npo * Mechanical Ventilation: no Assessment & Plan ASSESSMENT: * ADA & AACE recommend a goal blood sugar range 140-180 mg/dl for the majority of critically ill & non-critically ill patients. However, more stringent targets may be selected in individual cases. * 77 yo type 2 diabetic with lymphoma, febrile neutropenia, previously well- controlled at home on oral meds. BSG's very high when on steroids 07/11-, somewhat high past 2 days partly due to missing Januvia dose on 07/14. Will hold Januvia for now, tighten correction factor, and reassess in am. PLAN FOR INPATIENT GLYCEMIC CONTROL: * Holding outpatient oral diabetes medications * No basal insulin at this time * Correctional Insulin with NOVOLOG per scale ACHS or Q6hrs while NPO * Goal Range: Low 110 mg/dL - High 140 mg/dL * Correction Factor: 15 mg/dL/unit * Nutritional / Prandial insulin per carb ratio of 1 unit per 8 grams CHO consumed * Please note that the plan above was derived based on current level of insulin resistance and hospital stress. These recommendations are appropriate for inpatient admission only. Plan of care upon discharge will need to be reassessed to avoid potential outpatient hypo/hyperglycemia. Thank you.
--- NOTE | 2017-07-15 18:17 | Family Medicine Progress Note ---
Progress Note Date of Service Jul 15, 2017. Subjective Pt evaluation today including: conversation w/ patient, conversation w/ family , physical exam, lab review, review of studies Pain: abdominal pain Patient was seen at the bedside. She complains of urine urgency and intermittent burning sensation. Continues to complain of abdominal pain. Also nauseated. Constitutional: No fever Respiratory: No cough, No shortness of breath Cardiovascular: No chest pain Abdomen: + pain, + nausea, No vomiting, No GI bleeding Female : + urinary frequency Skin: No rash Medications Current Inpatient Medications Medications (Trade) Dose Ordered Sig/[place] Route Start Time Stop Time Status Last Admin Dose Admin Zolpidem Tartrate (Ambien Tab) 5 mg HSZ PRN PO 07/11/17 03:30 08/10/17 03:29 Ondansetron HCl (Zofran Inj) 4 mg Q6H PRN IV 07/11/17 03:30 08/10/17 03:29 07/15/17 08:07 4 MG Acetaminophen (Tylenol Tab) 500 mg Q4 PRN PO 07/11/17 05:00 08/10/17 04:59 07/14/17 22:59 500 MG Albuterol (Ventolin Hfa Inhaler) 2 puffs QID INH 07/11/17 08:00 08/10/17 07:59 Allopurinol (Zyloprim Tab) 200 mg QPM PO 07/11/17 21:00 08/10/17 20:59 07/14/17 22:03 200 MG Calcium Carbonate (Tums Chew Tab) 500 mg Q4 PRN PO 07/11/17 05:00 08/10/17 04:59 Docusate Sodium (coLACE CAP) 100 mg AMHS PO 07/11/17 08:00 08/10/17 07:59 07/13/17 20:57 100 MG Dronabinol (Marinol Cap) 2.5 mg QAM PO 07/11/17 08:00 08/10/17 07:59 07/14/17 08:24 2.5 MG Fentanyl (Duragesic Patch) 25 mcg Q72H TD 07/11/17 06:00 07/25/17 05:59 07/14/17 05:30 25 MCG Fluticasone Propionate (Flonase Nasal Pep) 2 sprays DAILY VIGNESH 07/11/17 08:00 08/10/17 07:59 07/13/17 08:11 2 SPRAYS Heparin Sodium (Porcine) (Heparin 10 Unit/ ml 5 ml Flush) 5 ml DAILY FLUSH 07/11/17 08:00 08/10/17 07:59 07/15/17 10:01 5 ML Acetaminophen/ Hydrocodone Bitart ([place] 5/325 Tab) 1 tab TID PO 07/11/17 08:00 07/25/17 07:59 07/15/17 14:24 1 TAB Acetaminophen/ Hydrocodone Bitart ([place] 5/325 Tab) 1 tab Q4 PRN PO 07/11/17 05:00 07/25/17 04:59 07/14/17 04:00 1 TAB Lidocaine (Lidoderm Patch 5%) 1 patch QAM TD 07/11/17 08:00 08/10/17 07:59 Losartan Potassium (coZAAR TAB) 100 mg DAILY PO 07/11/17 08:00 08/10/17 07:59 07/15/17 10:43 100 MG Meclizine HCl (Antivert Tab) 25 mg TID PRN PO 07/11/17 05:00 08/10/17 04:59 07/13/17 17:48 25 MG Multivitamins/ Minerals (Multivitamin W/ Minerals Tab) 1 tab DAILY PO 07/11/17 08:00 08/10/17 07:59 07/13/17 08:12 1 TAB Nitrofurantoin Macrocrystals (Macrobid Cap) 100 mg BID PO 07/11/17 08:00 08/10/17 07:59 Future Hold 07/14/17 22:05 100 MG Ondansetron HCl (Zofran Tab) 4 mg Q6 PRN PO 07/11/17 05:00 08/10/17 04:59 Oxybutynin Chloride (Ditropan-Xl Tab) 10 mg QAM PO 07/11/17 08:00 08/10/17 07:59 07/15/17 10:43 10 MG Potassium/ Phosphorus/Sodium (Phospha 250 Neutral 155-852-130 Mg) 1 tab QID PO 07/11/17 08:00 08/10/17 07:59 07/15/17 14:25 1 TAB Potassium Chloride (Klor-Con Tab) 40 meq DAILY PO 07/11/17 08:00 08/10/17 07:59 07/13/17 08:12 40 MEQ Prednisone (PredniSONE TAB) 50 mg DAILY PO 07/11/17 08:00 08/10/17 07:59 Future Hold 07/12/17 08:05 50 MG Prochlorperazine (Compazine Supp) 25 mg Q6H PRN WI 07/11/17 05:00 08/10/17 04:59 Senna/Docusate Sodium (Senokot S Tab) 1 tab Q24H PRN PO 07/11/17 05:00 08/10/17 04:59 Sitagliptin Phosphate (Januvia Tab) 100 mg QAM PO 07/11/17 08:00 08/10/17 07:59 Future Hold 07/15/17 10:03 100 MG Sodium Chloride (Sodium Chloride 0.9% 10 ml Flush) 10 ml DAILY IV 07/11/17 08:00 08/10/17 07:59 07/15/17 10:02 10 ML Miscellaneous (Fentanyl Patch Remove & Waste) 1 ea Q3D N/A 07/11/17 05:59 08/10/17 05:58 07/14/17 05:30 1 EA Miscellaneous Information (Check Fentanyl Patch Placement) 1 ea QS N/A 07/11/17 08:00 08/10/17 07:59 07/15/17 16:08 1 EA Miscellaneous (Remove Lidoderm Patch) 1 ea DAILY@21 N/A 07/11/17 21:00 08/10/17 20:59 07/14/17 22:03 1 EA Glucose (Glucose 40% Gel) 15-30 GRAMS 15 GRAMS... UD PRN PO 07/12/17 21:45 08/11/17 21:44 Glucose (Glucose Chew Tab) 4-8 Tablets 4 Tabl... UD PRN PO 07/12/17 21:45 08/11/17 21:44 Dextrose (Dextrose 50% 50ML Syringe) 25-50ML OF 50% DW IV FOR... UD PRN IV 07/12/17 21:45 08/11/17 21:44 Glucagon (Glucagon Inj) 1 mg UD PRN SQ 07/12/17 21:45 08/11/17 21:44 Magnesium Hydroxide (Milk Of Magnesia Susp) 30 ml Q6H PRN PO 07/13/17 18:45 08/12/17 18:44 07/13/17 23:59 30 ML Polyethylene (Miralax Powder Packet) 17 gm DAILY PRN PO 07/13/17 18:45 08/12/17 18:44 Morphine Sulfate (MoRPHine SULFATE INJ) 2 mg Q4H PRN IV 07/14/17 18:45 07/28/17 18:44 07/15/17 06:44 2 MG Ioversol (Optiray 320) 100 ml UD PRN IV 07/14/17 20:00 07/18/17 19:59 Diphenhydramine HCl (Benadryl Inj) 12.5 mg Q6H PRN IV 07/14/17 20:30 08/13/17 20:29 Ertapenem 1 gm/ Sodium Chloride 50 ml @ 120 mls/hr Q24H IV 07/15/17 00:00 07/25/17 00:00 07/14/17 23:52 120 MLS/HR Potassium Chloride/Sodium Chloride 1,000 ml @ 100 mls/hr Q10H IV 07/15/17 05:00 08/14/17 04:59 07/15/17 15:10 100 MLS/HR Filgrastim (Neupogen Sq) 480 mcg DAILY SC 07/15/17 13:00 08/14/17 12:59 07/15/17 14:25 480 MCG Pantoprazole Sodium 40 mg/ Syringe 10 ml @ 5 mls/min DAILY@2100 IV 07/15/17 21:00 08/14/17 20:59 Fluconazole/ Sodium Chloride 100 mg/Prmx 50 ml @ 100 mls/hr QAM IV 07/16/17 09:00 08/15/17 08:59 Folic Acid 1 mg/ Syringe 10 ml @ 5 mls/min DAILY IV 07/16/17 09:00 08/15/17 08:59 Vancomycin HCl (Consult) 1 ea UD PRN N/A 07/15/17 15:15 08/14/17 15:14 Acyclovir Sodium 500 mg/Dextrose 110 ml @ 100 mls/hr Q12 IV 07/15/17 21:00 08/14/17 20:59 Miscellaneous Information (Consult Glycemic Management Pharmacy) 1 ea UD N/A 07/15/17 16:25 08/14/17 16:24 Vancomycin HCl 2500 mg/Sodium Chloride 550 ml @ 200 mls/hr 07/15/17@1630 ONCE IV 07/15/17 16:30 07/15/17 19:14 07/15/17 16:50 200 MLS/HR Vancomycin HCl 1250 mg/Sodium Chloride 275 ml @ 125 mls/hr Q18H IV 07/16/17 10:00 07/25/17 09:59 Insulin Aspart (novoLOG ASPART) SLIDING SCALE G... Q6 SC 07/15/17 18:00 08/14/17 17:59 Objective Vital Signs Date Time Temp Pulse Resp B/P (MAP) Pulse Ox O2 Delivery O2 Flow Rate FiO2 07/15/17 16:00 Room Air 07/15/17 15:51 37.3 86 22 127/57 (80) 94 Room Air 07/15/17 12:01 38.0 116 18 137/92 (107) 92 Room Air 07/15/17 12:00 Room Air 07/15/17 08:04 37.5 128 18 108/69 (82) 97 07/15/17 08:00 Room Air 07/15/17 03:45 37.6 111 20 161/78 (105) 94 Room Air 07/15/17 03:45 Room Air 07/15/17 00:00 Room Air 07/14/17 23:45 37.9 102 22 152/97 96 07/14/17 23:15 38.1 100 16 162/70 91 07/14/17 22:45 37.9 103 16 154/89 95 07/14/17 22:30 38.0 105 20 152/76 95 07/14/17 22:25 38.0 112 20 175/84 93 07/14/17 20:27 38.4 110 20 155/75 93 07/14/17 20:00 Room Air 07/14/17 19:30 37.8 99 16 139/60 93 07/14/17 18:25 37.3 113 18 139/78 (98) 91 Room Air Physical Exam General Appearance: + mild distress Neck: supple, trachea midline Respiratory/Chest: chest non-tender, no respiratory distress, no accessory muscle use Cardiovascular: regular rate, rhythm Abdomen: normal bowel sounds, soft, + tenderness (generalized tenderness, more tender on RLQ) Extremities: non-tender, + pedal edema (b/l LE improved from before) Neurologic/Psychiatric: alert, normal mood/affect, oriented x 3 Skin: normal color, warm/dry, no rash Laboratory Results Results Past 24 Hours Test 07/14/17 18:56 07/14/17 20:40 07/14/17 21:59 07/14/17 22:09 Range/Units Sodium Level 137 136-145 mmol/L Potassium Level 3.6 3.5-5.1 mmol/L Chloride Level 101 98-107 mmol/L Carbon Dioxide Level 27 21-32 mmol/L Anion Gap 9.0 3-11 mmol/L Blood Urea Nitrogen 21 7-18 mg/dl Creatinine 1.10 0.60-1.20 mg/dl Est Creatinine Clear Calc Drug Dose 47.9 ml/min Estimated GFR () 56.9 Estimated GFR (Non- 49.1 BUN/Creatinine Ratio 19.5 10-20 Random Glucose 189 70-99 mg/dl Lactic Acid Level 2.9 2.0 0.4-2.0 mmol/L Calcium Level 8.0 8.5-10.1 mg/dl Total Bilirubin 0.9 0.2-1 mg/dl Direct Bilirubin 0.3 0-0.2 mg/dl Aspartate Amino Transf (AST/SGOT) 13 15-37 U/L Alanine Aminotransferase (ALT/SGPT) 35 12-78 U/L Alkaline Phosphatase 105 45-117 U/L Total Protein 4.8 6.4-8.2 gm/dl Albumin 2.3 3.4-5.0 gm/dl Lipase 39 73-393 U/L Urine Color DK YELLOW Urine Appearance CLOUDY CLEAR Urine pH 7.5 4.5-7.5 Urine Specific [place] 1.017 1.000-1.030 Urine Protein 1+ NEG Urine Glucose (UA) TRACE NEG Urine Ketones NEG NEG Urine Occult Blood 2+ NEG Urine Nitrite POS NEG Urine Bilirubin NEG NEG Urine Urobilinogen NEG NEG Urine Leukocyte Esterase TRACE NEG Urine WBC (Auto) 5-10 0-5 /hpf Urine RBC (Auto) 10-30 0-4 /hpf Urine Hyaline Casts (Auto) 1-5 0-5 /lpf Urine Epithelial Cells (Auto) >30 0-5 /lpf Urine Bacteria (Auto) NEG NEG Urine Renal Epithelial Cells 5-10 0-5 /lpf Urine Yeast (Auto) BUDDING NONE PRSENT Bedside Glucose 202 70-90 mg/dl Test 07/15/17 00:15 07/15/17 02:00 07/15/17 07:53 07/15/17 11:06 Range/Units Stool Occult Blood POSITIVE NEGATIVE White Blood Count 0.02 4.8-10.8 K/uL Red Blood Count 2.63 4.2-5.4 M/uL Hemoglobin 8.3 12.0-16.0 g/dL Hematocrit 23.3 37-47 % Mean Corpuscular Volume 88.6 80-100 fL Mean Corpuscular Hemoglobin 31.6 25-34 pg Mean Corpuscular Hemoglobin Concent 35.6 32-36 g/dl Platelet Count 42 130-400 K/uL Mean Platelet Volume 8.7 7.4-10.4 fL RDW Standard Deviation 52.2 36.4-46.3 fL RDW Coefficient of Variation 16.2 11.5-14.5 % Neutrophils % (Manual) 20.0 % Lymphocytes % (Manual) 80.0 % Neutrophils # (Manual) 0.00 1.4-6.5 K/uL Total Absolute Neutrophils 0.00 1.4-6.5 K/uL Lymphocytes # (Manual) 0.02 1.2-3.4 K/uL Total Absolute Lymphocytes 0.02 1.2-3.4 K/uL Red Blood Cell Morphology Unremarkable Sodium Level 139 141 136-145 mmol/L Potassium Level 3.4 3.5 3.5-5.1 mmol/L Chloride Level 104 105 98-107 mmol/L Carbon Dioxide Level 28 29 21-32 mmol/L Anion Gap 7.0 7.0 3-11 mmol/L Blood Urea Nitrogen 20 20 7-18 mg/dl Creatinine 0.99 1.00 0.60-1.20 mg/dl Est Creatinine Clear Calc Drug Dose 53.3 53.2 ml/min Estimated GFR () 64.6 63.8 Estimated GFR (Non- 55.7 55.1 BUN/Creatinine Ratio 20.2 19.9 10-20 Random Glucose 163 146 70-99 mg/dl Calcium Level 7.6 7.8 8.5-10.1 mg/dl Bedside Glucose 208 70-90 mg/dl Test 07/15/17 11:26 8/18/17 16:12 Range/Units Bedside Glucose 174 200 70-90 mg/dl Microbiology Results 07/14/17 Blood Culture, Received Pending 07/14/17 Blood Culture, Received Pending 07/14/17 Urine Culture - Final, Complete GREATER THAN THREE TYPES OF ORGANISMS... Assessment and Plan This is a 77 yo f with a history of an aggressive B cell lymphoma requiring chemotherapy that is s/p head injury and pancytopenia. Patient hgb dropped to 6.8. S/p 2 units of pRBC and platelet. FOBT is neg. She is neutropenic. Patient was complaining of abdominal discomfort/pain. She was constipated initially, gave milk of mag and she had total 4 BM over night. Denies melena, hematochezia or hematuria. KUB showed mild nonobstructive ileus. However his abdominal pain continues to worsen. CT of the abd was ordered showed extensive urothelial thickening and enhancement of the left renal collecting system and left ureter, possible infection. UA was positive for UTI. Patient was empirically started on Zosyn for neutropenic enterocolitis. Given negative CT for colitis, it was d/ heydi. Patient has hx of MDRO and based on previous sensitivity she is sensitive to ertapenem. She was started on entrapenem + vanco per ID recommendation. BCx is pending. UCx was contaminated but no point of repeating this point given she is started on abx already. Currently she is on IVF and will continue to monitor her in Tele. CXR this afternoon. *Sepsis 2/2 UTI - Patient has hx of staghorn calculus on the left and MDRO UTI - CT of the abd was ordered showed extensive urothelial thickening and enhancement of the left renal collecting system and left ureter, possible infection - KUB showed mild nonobstructive ileus. - Her lactic acid was initially elevated, it is normal now - Continue with NSS + 20 KCL @100mls/hr - Continue with ertapenem + Vanco - Consulted ID and continue to appreciate his recommendations * Questionable pneumonia - CXR showed right mid to lower lung paramediastinal opacity, which could represent an infiltrate and would be concerning for pneumonia. - Repeat CXR - pending - Continue ertapenem and vanco * Mechanical fall, s/p head injury in the presence of thrombocytopenia - CT of head and cervical spine was WNL - Given that patient has thrombocytopenia, she was admitted for further observation * Pancytopenia secondary to chemotherapy - Her WBC went down to 0.02 - Will continue to monitor daily - s/p 2 units of pRBC, Hgb is stable - s/p 4 units of plt, it is >15 - Patient was seen by Heme/Onc, Dr Clark states PLT transfuse for < 15 and p RBC for hgb < 8 - Given her drop in hgb somewhat precipitous, Dr. Clark recommended FOBT. FOBT negative - Patient is started on Filgrastim * Lymphoma - Hem/ onc was consulted - prophylaxis for immunosupp and multiple MDRO infections: fluconzaole, bactrim, acyclovir and nitrofurantoin - port on right side * Diabetes - BSG AC HS - continue sitagliptin - on SSI * HTN - continue losartan * Neurogenic Bladder - continue oxybutinin * Bilateral LE edema - Patient has significant b/l LE edema. - Will hold Lasix for now - Monitor I/O and daily weight and BMP * Back pain/ left hip pain; chronic - using fentanyl and [place] regularly * Vertigo - has a tendency to have vertigo after pills in am - continue meclizine * DVT Prophylaxis - h/o dvt however pancytopenia; SCD Resident Physician Supervision Note: I was present with Dr. Red during the history and exam. I discussed the case with the resident and agree with the findings and plan as documented in the note. Any exceptions or clarifications are listed here: 77-year-old female with pancytopenia secondary to chemotherapy for B-cell lymphoma. She appears to have a urinary tract infection, and questionable early developing pulmonary infiltrate. Fortunately, the CT is not indicated findings of enterocolitis. She continues on ertapenem and vancomycin. I discussed the case with both infectious disease and hematology/oncology. I also discussed patient's condition with the son and granddaughter. Documented By: Koffi Gupta
--- NOTE | 2017-07-15 19:07 | DIAGNOSTIC IMAGING REPORT ---
SINGLE VIEW CHEST CLINICAL HISTORY: Lower extremity edema. FINDINGS: An AP, portable, upright chest radiograph is compared to study dated 07/14/2017. The examination is degraded by portable technique, large body habitus, and patient rotation. The right internal jugular central venous catheter is unchanged in position. The heart is top normal for projection and there is atherosclerotic calcification of the thoracic aorta. The pulmonary vasculature is noncongested. Chronic interstitial thickening is unchanged. There is mild elevation of the right hemidiaphragm and bibasilar atelectasis. No airspace consolidation is seen typical for pneumonia and there is no pleural effusion. No pneumothorax is seen. The skeletal structures are osteopenic. The bony thorax is grossly intact. IMPRESSION: No acute cardiopulmonary abnormality. Electronically signed by: Charlie Elmore M.D. 07/15/2017 7:05 PM Dictated Date/Time: 07/15/2017 7:04 PM
[2017-07-15 19:42] VITALS: BP 143/58; PULSE 86; TEMP 37.3; O2SAT 93
[2017-07-15] MEDS ORDERED: VANCOMYCIN INJ 1,500 MG in SODIUM CHLORIDE 0.9% 250ML 250 ML IV SCH (21:00)
[2017-07-15] MEDS: PANTOprazole INJ 40 MG in SYRINGE 0 ML IV SCH (21:00)
[2017-07-15] MEDS: ALLOPURINOL 100 MG TAB PO SCH (22:11)
[2017-07-15] MEDS: ACYCLOVIR SOD INJ 500 MG in DEXTROSE 5% 100ML 100 ML IV SCH (22:12)
[2017-07-15 22:59] LABS: PLATELET COUNT 23 K/uL (130-400)
[2017-07-15 23:00] LABS: HEMATOCRIT 21.2 % (37-47); MEAN CELL VOLUME 90.6 fL (80-100); MEAN CORPUSCULAR HEMOGLOBIN 30.8 pg (25-34); MEAN PLATELET VOLUME 8.6 fL (7.4-10.4); PLT ESTIMATE SIGNIFIC DECREASED; RED BLOOD COUNT 2.34 M/uL (4.2-5.4); WHITE BLOOD COUNT 0.04 K/uL (4.8-10.8)
[2017-07-15] MEDS: ERTAPENEM IV 1 GM in SODIUM CHLOR 0.9% AD-VAN 50ML 50 ML IV SCH (23:52)
[2017-07-16] VITALS (13 sets, daily range): BP systolic 103–172; BP diastolic 49–93; PULSE 80–116; TEMP 36.4–37.8; O2SAT 90–98
[2017-07-16] MEDS: INSULIN ASPART 100 UNITS/ML 3 ML PEN SC SCH ×4 (06:00→23:38)
[2017-07-16 07:20] LABS: CREATININE 0.85 mg/dl (0.60-1.20)
[2017-07-16 07:26] LABS: HEMATOCRIT 21.5 % (37-47); MEAN CELL VOLUME 91.1 fL (80-100); MEAN CORPUSCULAR HEMOGLOBIN 30.5 pg (25-34); MEAN CORPUSCULAR HGB CONC 33.5 g/dl (32-36); MEAN PLATELET VOLUME 8.2 fL (7.4-10.4); PLATELET COUNT 15 K/uL (130-400); RED BLOOD COUNT 2.36 M/uL (4.2-5.4); WHITE BLOOD COUNT 0.04 K/uL (4.8-10.8)
[2017-07-16 07:33] LABS: ESTIMATED AVERAGE GLUCOSE 140 mg/dl; HA1C FLAG Normal (Normal)
[2017-07-16] MEDS: CHECK FENTANYL PATCH PLACEMENT SCH ×3 (08:00→23:39)
[2017-07-16] MEDS: ONDANSETRON INJ 2 MG/ML 2 ML VIAL IV PRN ×2 (08:44→18:33)
[2017-07-16] MEDS: ALBUTEROL HFA 8 GM INHALER INH SCH ×5 (08:47→21:00)
[2017-07-16] MEDS: DOCUSATE SODIUM 100 MG CAP PO SCH ×3 (08:48→21:00)
[2017-07-16] MEDS: FLUTICASONE PROPIONATE NA SPR 16 GM BTL NAE SCH (08:48)
[2017-07-16] MEDS: FLUCONAZOLE 100MG / NSS IV SCH (08:52)
[2017-07-16] MEDS: ACYCLOVIR SOD INJ 500 MG in DEXTROSE 5% 100ML 100 ML IV SCH ×2 (08:52→20:55)
[2017-07-16] MEDS: FoLIC ACID INJ 1 MG in SYRINGE 9.8 ML IV SCH (08:57)
[2017-07-16] MEDS: SODIUM CHLORIDE 0.9% 10ML FLUSH IV SCH (08:57)
[2017-07-16] MEDS: LIDODERM (LIDOCAINE) PATCH 5% TD SCH (09:00)
[2017-07-16] MEDS: POT PHOSPHATE MONOBASIC W/ SOD TAB PO SCH ×5 (09:00→21:00)
[2017-07-16] MEDS: CEROVITE ADV FORMULA TAB PO SCH (09:00)
[2017-07-16] MEDS: POTASSIUM CHLORIDE 20 MEQ TABCR PO SCH (09:00)
[2017-07-16] MEDS: OXYBUTYNIN CHLORIDE 5 MG TABCR PO SCH (09:00)
[2017-07-16] MEDS: FILGRASTIM 480 MCG/1.6 ML VIAL SC SCH (09:03)
[2017-07-16] MEDS: DRONABINOL 2.5 MG CAP PO SCH (09:03)
[2017-07-16] MEDS: HYDROCODONE/ACETAMOPHEN 5/325MG TAB PO SCH ×3 (09:04→20:57)
[2017-07-16] MEDS: LOSARTAN POTASSIUM 50 MG TAB PO SCH (09:04)
[2017-07-16] MEDS: NSS + 20MEQ KCL 1000ML 1,000 ML IV SCH ×2 (09:31→23:35)
[2017-07-16] MEDS: VANCOMYCIN INJ 1,250 MG in SODIUM CHLORIDE 0.9% 250ML 250 ML IV SCH (10:52)
--- NOTE | 2017-07-16 10:56 | Hematology/Oncology Prog Note ---
Hematology/Onc Progress Note Date of Service Jul 16, 2017. Diagnoses High-grade NHL Chemotherapy-induced pancytopenia Fall Medications Medications Administered Medications (Trade) Dose Ordered Sig/[place] Route Start Time Stop Time Status Last Admin Dose Admin Ondansetron HCl (Zofran Inj) 4 mg Q6H PRN IV 07/11/17 03:30 08/10/17 03:29 07/16/17 08:44 4 MG Acetaminophen (Tylenol Tab) 500 mg Q4 PRN PO 07/11/17 05:00 08/10/17 04:59 07/14/17 22:59 500 MG Acyclovir (Zovirax Cap) 200 mg TID PO 07/11/17 08:00 07/15/17 15:11 DC 07/14/17 22:03 200 MG Albuterol (Ventolin Hfa Inhaler) 2 puffs QID INH 07/11/17 08:00 08/10/17 07:59 07/15/17 22:12 2 PUFFS Allopurinol (Zyloprim Tab) 200 mg QPM PO 07/11/17 21:00 08/10/17 20:59 07/15/17 22:11 200 MG Docusate Sodium (coLACE CAP) 100 mg AMHS PO 07/11/17 08:00 08/10/17 07:59 07/15/17 22:11 100 MG Dronabinol (Marinol Cap) 2.5 mg QAM PO 07/11/17 08:00 08/10/17 07:59 07/16/17 09:03 2.5 MG Fentanyl (Duragesic Patch) 25 mcg Q72H TD 07/11/17 06:00 07/25/17 05:59 07/14/17 05:30 25 MCG Fluconazole (Diflucan Tab) 100 mg QAM PO 07/11/17 08:00 07/15/17 14:31 DC 07/15/17 10:03 100 MG Fluticasone Propionate (Flonase Nasal [place]) 2 sprays DAILY VIGNESH 07/11/17 08:00 08/10/17 07:59 07/13/17 08:11 2 SPRAYS Folic Acid (Folvite Tab) 1 mg QAM PO 07/11/17 08:00 07/15/17 14:33 DC 07/15/17 10:03 1 MG Furosemide (Lasix Tab) 20 mg QAM PO 07/11/17 08:00 07/12/17 11:04 DC 07/12/17 08:05 20 MG Heparin Sodium (Porcine) (Heparin 10 Unit/ ml 5 ml Flush) 5 ml DAILY FLUSH 07/11/17 08:00 08/10/17 07:59 07/16/17 08:52 5 ML Acetaminophen/ Hydrocodone Bitart ([place] 5/325 Tab) 1 tab TID PO 07/11/17 08:00 07/25/17 07:59 07/16/17 09:04 1 TAB Acetaminophen/ Hydrocodone Bitart ([place] 5/325 Tab) 1 tab Q4 PRN PO 07/11/17 05:00 07/25/17 04:59 07/14/17 04:00 1 TAB Losartan Potassium (coZAAR TAB) 100 mg DAILY PO 07/11/17 08:00 08/10/17 07:59 07/16/17 09:04 100 MG Meclizine HCl (Antivert Tab) 25 mg TID PRN PO 07/11/17 05:00 08/10/17 04:59 07/13/17 17:48 25 MG Multivitamins/ Minerals (Multivitamin W/ Minerals Tab) 1 tab DAILY PO 07/11/17 08:00 08/10/17 07:59 07/13/17 08:12 1 TAB Nitrofurantoin Macrocrystals (Macrobid Cap) 100 mg BID PO 07/11/17 08:00 08/10/17 07:59 Future Hold 07/14/17 22:05 100 MG Ondansetron HCl (Zofran Tab) 8 mg BID PO 07/11/17 08:00 07/15/17 14:35 DC 07/14/17 22:03 8 MG Oxybutynin Chloride (Ditropan-Xl Tab) 10 mg QAM PO 07/11/17 08:00 08/10/17 07:59 07/15/17 10:43 10 MG Pantoprazole Sodium (Protonix Tab) 40 mg DAILY PO 07/11/17 08:00 07/15/17 14:03 DC 07/13/17 08:12 40 MG Potassium/ Phosphorus/Sodium (Phospha 250 Neutral 155-852-130 Mg) 1 tab QID PO 07/11/17 08:00 08/10/17 07:59 07/15/17 22:12 1 TAB Potassium Chloride (Klor-Con Tab) 40 meq DAILY PO 07/11/17 08:00 08/10/17 07:59 07/13/17 08:12 40 MEQ Prednisone (PredniSONE TAB) 50 mg DAILY PO 07/11/17 08:00 08/10/17 07:59 Future Hold 07/12/17 08:05 50 MG Sitagliptin Phosphate (Januvia Tab) 100 mg QAM PO 07/11/17 08:00 08/10/17 07:59 Future Hold 07/15/17 10:03 100 MG Sodium Chloride (Sodium Chloride 0.9% 10 ml Flush) 10 ml DAILY IV 07/11/17 08:00 08/10/17 07:59 07/16/17 08:57 10 ML Trimethoprim/ Sulfamethoxazole (Septra Ds 800/ 160MG Tab) 1 tab MoTh@0800 PO 07/11/17 08:00 07/15/17 14:15 DC 07/11/17 10:22 1 TAB Miscellaneous (Fentanyl Patch Remove & Waste) 1 ea Q3D N/A 07/11/17 05:59 08/10/17 05:58 07/14/17 05:30 1 EA Miscellaneous Information (Check Fentanyl Patch Placement) 1 ea QS N/A 07/11/17 08:00 08/10/17 07:59 07/16/17 08:00 1 EA Miscellaneous (Remove Lidoderm Patch) 1 ea DAILY@21 N/A 07/11/17 21:00 08/10/17 20:59 07/14/17 22:03 1 EA Furosemide (Lasix Tab) 20 mg NOW ONCE PO 07/11/17 15:00 07/11/17 15:01 DC 07/11/17 18:05 20 MG Furosemide 20 mg/ Syringe 2 ml @ 4 mls/min TODAY@1800 IV 07/11/17 18:00 07/11/17 20:00 DC 07/11/17 23:30 4 MLS/MIN Furosemide 20 mg/ Syringe 2 ml @ 4 mls/min DAILY IV 07/13/17 08:00 07/13/17 15:38 DC 07/13/17 08:10 4 MLS/MIN Furosemide (Lasix Oral Soln) 20 mg NOW STAT PO 07/12/17 11:25 07/12/17 11:26 DC 07/12/17 12:30 20 MG Insulin Aspart (novoLOG ASPART) SLIDING SCALE G... ACHS SC 07/13/17 06:30 07/15/17 17:06 DC 07/15/17 17:01 4 UNITS Insulin Aspart (novoLOG ASPART) 10 units NOW ONCE SC 07/12/17 21:30 07/12/17 21:32 DC 07/12/17 22:11 10 UNITS Magnesium Hydroxide (Milk Of Magnesia Susp) 30 ml Q6H PRN PO 07/13/17 18:45 08/12/17 18:44 07/13/17 23:59 30 ML Sodium Chloride 1,000 ml @ 75 mls/hr [id number] IV 07/14/17 14:45 07/15/17 06:18 DC 07/14/17 22:01 75 MLS/HR Piperacillin Sod/ Tazobactam Sod 4.5 gm/Dextrose 120 ml @ 200 mls/hr 1800 ONCE IV 07/14/17 18:00 07/14/17 18:35 DC 07/14/17 18:52 200 MLS/HR Morphine Sulfate (MoRPHine SULFATE INJ) 2 mg Q4H PRN IV 07/14/17 18:45 07/28/17 18:44 07/15/17 06:44 2 MG Sodium Chloride 1,000 ml @ 999 mls/hr Q1H1M ONCE IV 07/14/17 19:45 07/14/17 20:45 DC 07/14/17 20:31 999 MLS/HR Ertapenem 1 gm/ Sodium Chloride 50 ml @ 120 mls/hr Q24H IV 07/15/17 00:00 07/25/17 00:00 07/15/17 23:52 120 MLS/HR Sodium Chloride 1,000 ml @ 999 mls/hr Q1H1M ONCE IV 07/14/17 22:15 07/14/17 23:32 DC 07/14/17 22:15 999 MLS/HR Sodium Chloride 1,000 ml @ 100 mls/hr Q10H IV 07/14/17 22:15 07/15/17 06:18 DC 07/14/17 23:15 100 MLS/HR Potassium Chloride/Sodium Chloride 1,000 ml @ 100 mls/hr Q10H IV 07/15/17 05:00 08/14/17 04:59 07/16/17 09:31 100 MLS/HR Filgrastim (Neupogen Sq) 480 mcg DAILY SC 07/15/17 13:00 08/14/17 12:59 07/16/17 09:03 480 MCG Pantoprazole Sodium 40 mg/ Syringe 10 ml @ 5 mls/min DAILY@2100 IV 07/15/17 21:00 08/14/17 20:59 07/15/17 21:00 5 MLS/MIN Fluconazole/ Sodium Chloride 100 mg/Prmx 50 ml @ 100 mls/hr QAM IV 07/16/17 09:00 08/15/17 08:59 07/16/17 08:52 100 MLS/HR Folic Acid 1 mg/ Syringe 10 ml @ 5 mls/min DAILY IV 07/16/17 09:00 08/15/17 08:59 07/16/17 08:57 5 MLS/MIN Acyclovir Sodium 500 mg/Dextrose 110 ml @ 100 mls/hr Q12 IV 07/15/17 21:00 08/14/17 20:59 07/16/17 08:52 100 MLS/HR Vancomycin HCl 2500 mg/Sodium Chloride 550 ml @ 200 mls/hr 07/15/17@1630 ONCE IV 07/15/17 16:30 07/15/17 19:14 DC 07/15/17 16:50 200 MLS/HR Insulin Aspart (novoLOG ASPART) SLIDING SCALE G... Q6 SC 07/15/17 18:00 08/14/17 17:59 07/15/17 23:55 1 UNITS Subjective Ms. Perez looks largely the same today, though she has been afebrile for ~24 hours. She had a positive FOBT and has a history of hemorrhoids. She also had a loose bowel movement early this morning. Review of Systems: Constitutional: + weakness, + fatigue, No fever ENT: No unusual epistaxis Respiratory: No cough, No shortness of breath, No hemoptysis Cardiovascular: + edema, No chest pain Abdomen: + pain (slightly improved), + diarrhea (one episode), + GI bleeding (occult) Musculoskeletal: No joint pain, No muscle pain Heme: No abnormal bleeding/bruising, No night sweats Vital Signs Vital Signs Past 12 Hours Date Time Temp Pulse Resp B/P (MAP) Pulse Ox O2 Delivery O2 Flow Rate FiO2 07/16/17 08:25 37.4 95 18 145/73 (97) 93 Room Air 07/16/17 04:48 37.5 96 22 163/68 (99) 94 Room Air 07/16/17 00:17 Room Air 07/16/17 00:12 37.5 116 22 111/49 (69) 91 Room Air Physical Exam Constitutional: Level of Distress: mild distress, chronically ill Psychiatric: Mental Status: active & alert Orientation: oriented except where noted Head: with evidence of injury (She has an ecchymosis overlying her left forehead, above her eye) Neck: pertinent finding (she has a bruise on her lower right neck, in the area where she fell) Lungs: Respiratory Effort: no dyspnea Auscuitation: breath sounds normal Cardiovascular: Heart Auscultation: RRR Abdomen: Inspection & Palpation: soft, LUQ tenderness (She is diffusely tender in all quadrants, but somewhat moreso L>R. No rebound or guarding) Extremities: edema (1+ pitting edema in bilateral calves) Laboratory Last 24 Hours Test 07/15/17 11:06 07/15/17 11:26 07/15/17 16:12 07/15/17 18:20 Sodium Level 141 mmol/L Potassium Level 3.5 mmol/L Chloride Level 105 mmol/L Carbon Dioxide Level 29 mmol/L Anion Gap 7.0 mmol/L Blood Urea Nitrogen 20 mg/dl Creatinine 1.00 mg/dl Est Creatinine Clear Calc Drug Dose 53.2 ml/min Estimated GFR () 63.8 Estimated GFR (Non- 55.1 BUN/Creatinine Ratio 19.9 Random Glucose 146 mg/dl Calcium Level 7.8 mg/dl Bedside Glucose 174 mg/dl 200 mg/dl 152 mg/dl Test 07/15/17 22:12 07/15/17 23:51 07/16/17 06:24 07/16/17 06:30 White Blood Count 0.04 K/uL 0.04 K/uL Red Blood Count 2.34 M/uL 2.36 M/uL Hemoglobin 7.2 g/dL 7.2 g/dL Hematocrit 21.2 % 21.5 % Mean Corpuscular Volume 90.6 fL 91.1 fL Mean Corpuscular Hemoglobin 30.8 pg 30.5 pg Mean Corpuscular Hemoglobin Concent 34.0 g/dl 33.5 g/dl RDW Standard Deviation 54.8 fL 55.0 fL RDW Coefficient of Variation 16.6 % 16.6 % Platelet Count 23 K/uL 15 K/uL Mean Platelet Volume 8.6 fL 8.2 fL Platelet Estimate SIGNIFIC DECREASED Bedside Glucose 150 mg/dl 113 mg/dl Creatinine 0.85 mg/dl Est Creatinine Clear Calc Drug Dose 63.5 ml/min Estimated GFR () 77.7 Estimated GFR (Non- 67.0 Estimated Average Glucose 140 mg/dl Hemoglobin A1c 6.5 % Assessment & Plan Ms. Perez has sepsis from a urinary tract infection. 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 She is on appropriate antibiotics and has been afebrile for 24 hours. I started her on GCSF yesterday and she is now day 10 of her cycle, which is around the end of the expect count rojas. We should hopefully see her counts begin to recover over the next couple of days. In the meantime, continued supportive care is critical. Please advance her diet as tolerated. She also remains on her prophylactic Acyclovir and Diflucan, though we can probably hold the Bactrim and Macrobid. I would transfuse RBCs and Platelets today.
--- NOTE | 2017-07-16 11:06 | Family Medicine Progress Note ---
Progress Note Date of Service Jul 16, 2017. Subjective Pt evaluation today including: conversation w/ patient, physical exam, chart review, lab review Pain: has some lower abdominal pain PO Intake: ice chips 77-year-old female with lymphoma currently receiving chemotherapy , multidrug resistant UTI, right sided staghorn calculus, hypertension, diabetes presented to the ER after she sustained a mechanical fall at [facility]. CT head and neck was unremarkable, but hemoglobin was found to be low at 7.8 and platelet count was found to be 19 on admission She received 2 units of irradiated PRBC transfusion and 4 units of irradiated platelet transfusion and also was started on filgrastim. Doing well today. Denied any chest pain, palpitations, shortness of breath. Denied any nausea or vomiting but c/o of watery diarrhea and some suprapubic pain Constitutional: No fever, No chills Eyes: No worsening of vision ENT: No hearing loss Respiratory: No cough Cardiovascular: No chest pain Breast: No breast lump Abdomen: + pain, + diarrhea, No vomiting Musculoskeletal: No joint pain Female : + dysuria Neurologic: No paralysis Psychiatric: No depression symptoms Heme: No abnormal bleeding/bruising Medications Current Inpatient Medications Medications (Trade) Dose Ordered Sig/[place] Route Start Time Stop Time Status Last Admin Dose Admin Zolpidem Tartrate (Ambien Tab) 5 mg HSZ PRN PO 07/11/17 03:30 08/10/17 03:29 Ondansetron HCl (Zofran Inj) 4 mg Q6H PRN IV 07/11/17 03:30 08/10/17 03:29 07/16/17 08:44 4 MG Acetaminophen (Tylenol Tab) 500 mg Q4 PRN PO 07/11/17 05:00 08/10/17 04:59 07/14/17 22:59 500 MG Albuterol (Ventolin Hfa Inhaler) 2 puffs QID INH 07/11/17 08:00 08/10/17 07:59 07/15/17 22:12 2 PUFFS Allopurinol (Zyloprim Tab) 200 mg QPM PO 07/11/17 21:00 08/10/17 20:59 07/15/17 22:11 200 MG Calcium Carbonate (Tums Chew Tab) 500 mg Q4 PRN PO 07/11/17 05:00 08/10/17 04:59 Docusate Sodium (coLACE CAP) 100 mg AMHS PO 07/11/17 08:00 08/10/17 07:59 07/15/17 22:11 100 MG Dronabinol (Marinol Cap) 2.5 mg QAM PO 07/11/17 08:00 08/10/17 07:59 07/16/17 09:03 2.5 MG Fentanyl (Duragesic Patch) 25 mcg Q72H TD 07/11/17 06:00 07/25/17 05:59 07/14/17 05:30 25 MCG Fluticasone Propionate (Flonase Nasal [place]) 2 sprays DAILY VIGNESH 07/11/17 08:00 08/10/17 07:59 07/13/17 08:11 2 SPRAYS Heparin Sodium (Porcine) (Heparin 10 Unit/ ml 5 ml Flush) 5 ml DAILY FLUSH 07/11/17 08:00 08/10/17 07:59 07/16/17 08:52 5 ML Acetaminophen/ Hydrocodone Bitart ([place] 5/325 Tab) 1 tab TID PO 07/11/17 08:00 07/25/17 07:59 07/16/17 09:04 1 TAB Acetaminophen/ Hydrocodone Bitart ([place] 5/325 Tab) 1 tab Q4 PRN PO 07/11/17 05:00 07/25/17 04:59 07/14/17 04:00 1 TAB Lidocaine (Lidoderm Patch 5%) 1 patch QAM TD 07/11/17 08:00 08/10/17 07:59 Losartan Potassium (coZAAR TAB) 100 mg DAILY PO 07/11/17 08:00 08/10/17 07:59 07/16/17 09:04 100 MG Meclizine HCl (Antivert Tab) 25 mg TID PRN PO 07/11/17 05:00 08/10/17 04:59 07/13/17 17:48 25 MG Multivitamins/ Minerals (Multivitamin W/ Minerals Tab) 1 tab DAILY PO 07/11/17 08:00 08/10/17 07:59 07/13/17 08:12 1 TAB Nitrofurantoin Macrocrystals (Macrobid Cap) 100 mg BID PO 07/11/17 08:00 08/10/17 07:59 Future Hold 07/14/17 22:05 100 MG Ondansetron HCl (Zofran Tab) 4 mg Q6 PRN PO 07/11/17 05:00 08/10/17 04:59 Oxybutynin Chloride (Ditropan-Xl Tab) 10 mg QAM PO 07/11/17 08:00 08/10/17 07:59 07/15/17 10:43 10 MG Potassium/ Phosphorus/Sodium (Phospha 250 Neutral 155-852-130 Mg) 1 tab QID PO 07/11/17 08:00 08/10/17 07:59 07/15/17 22:12 1 TAB Potassium Chloride (Klor-Con Tab) 40 meq DAILY PO 07/11/17 08:00 08/10/17 07:59 07/13/17 08:12 40 MEQ Prednisone (PredniSONE TAB) 50 mg DAILY PO 07/11/17 08:00 08/10/17 07:59 Future Hold 07/12/17 08:05 50 MG Prochlorperazine (Compazine Supp) [address] 07/11/17 05:00 08/10/17 04:59 Senna/Docusate Sodium (Senokot S Tab) 1 tab Q24H PRN PO 07/11/17 05:00 08/10/17 04:59 Sitagliptin Phosphate (Januvia Tab) 100 mg QAM PO 07/11/17 08:00 08/10/17 07:59 Future Hold 07/15/17 10:03 100 MG Sodium Chloride (Sodium Chloride 0.9% 10 ml Flush) 10 ml DAILY IV 07/11/17 08:00 08/10/17 07:59 07/16/17 08:57 10 ML Miscellaneous (Fentanyl Patch Remove & Waste) 1 ea Q3D N/A 07/11/17 05:59 08/10/17 05:58 07/14/17 05:30 1 EA Miscellaneous Information (Check Fentanyl Patch Placement) 1 ea QS N/A 07/11/17 08:00 08/10/17 07:59 07/16/17 08:00 1 EA Miscellaneous (Remove Lidoderm Patch) 1 ea DAILY@21 N/A 07/11/17 21:00 08/10/17 20:59 07/14/17 22:03 1 EA Glucose (Glucose 40% Gel) 15-30 GRAMS 15 GRAMS... UD PRN PO 07/12/17 21:45 08/11/17 21:44 Glucose (Glucose Chew Tab) 4-8 Tablets 4 Tabl... UD PRN PO 07/12/17 21:45 08/11/17 21:44 Dextrose (Dextrose 50% 50ML Syringe) 25-50ML OF 50% DW IV FOR... UD PRN IV 07/12/17 21:45 08/11/17 21:44 Glucagon (Glucagon Inj) 1 mg UD PRN SQ 07/12/17 21:45 08/11/17 21:44 Magnesium Hydroxide (Milk Of Magnesia Susp) 30 ml Q6H PRN PO 07/13/17 18:45 08/12/17 18:44 07/13/17 23:59 30 ML Polyethylene (Miralax Powder Packet) 17 gm DAILY PRN PO 07/13/17 18:45 08/12/17 18:44 Morphine Sulfate (MoRPHine SULFATE INJ) 2 mg Q4H PRN IV 07/14/17 18:45 07/28/17 18:44 07/15/17 06:44 2 MG Ioversol (Optiray 320) 100 ml UD PRN IV 07/14/17 20:00 07/18/17 19:59 Diphenhydramine HCl (Benadryl Inj) 12.5 mg Q6H PRN IV 07/14/17 20:30 08/13/17 20:29 Ertapenem 1 gm/ Sodium Chloride 50 ml @ 120 mls/hr Q24H IV 07/15/17 00:00 07/25/17 00:00 07/15/17 23:52 120 MLS/HR Potassium Chloride/Sodium Chloride 1,000 ml @ 100 mls/hr Q10H IV 07/15/17 05:00 08/14/17 04:59 07/16/17 09:31 100 MLS/HR Filgrastim (Neupogen Sq) 480 mcg DAILY SC 07/15/17 13:00 08/14/17 12:59 07/16/17 09:03 480 MCG Pantoprazole Sodium 40 mg/ Syringe 10 ml @ 5 mls/min DAILY@2100 IV 07/15/17 21:00 08/14/17 20:59 07/15/17 21:00 5 MLS/MIN Fluconazole/ Sodium Chloride 100 mg/Prmx 50 ml @ 100 mls/hr QAM IV 07/16/17 09:00 08/15/17 08:59 07/16/17 08:52 100 MLS/HR Folic Acid 1 mg/ Syringe 10 ml @ 5 mls/min DAILY IV 07/16/17 09:00 08/15/17 08:59 07/16/17 08:57 5 MLS/MIN Vancomycin HCl (Consult) 1 ea UD PRN N/A 07/15/17 15:15 08/14/17 15:14 Acyclovir Sodium 500 mg/Dextrose 110 ml @ 100 mls/hr Q12 IV 07/15/17 21:00 08/14/17 20:59 07/16/17 08:52 100 MLS/HR Miscellaneous Information (Consult Glycemic Management Pharmacy) 1 ea UD N/A 07/15/17 16:25 08/14/17 16:24 Vancomycin HCl 1250 mg/Sodium Chloride 275 ml @ 125 mls/hr Q18H IV 07/16/17 10:00 07/25/17 09:59 07/16/17 10:52 125 MLS/HR Insulin Aspart (novoLOG ASPART) SLIDING SCALE G... Q6 SC 07/15/17 18:00 08/14/17 17:59 07/15/17 23:55 1 UNITS Objective Vital Signs Date Time Temp Pulse Resp B/P (MAP) Pulse Ox O2 Delivery O2 Flow Rate FiO2 07/16/17 08:25 37.4 95 18 145/73 (97) 93 Room Air 07/16/17 04:48 37.5 96 22 163/68 (99) 94 Room Air 07/16/17 00:17 Room Air 07/16/17 00:12 37.5 116 22 111/49 (69) 91 Room Air 07/15/17 20:45 Room Air 07/15/17 19:42 37.3 86 20 143/58 (86) 93 Room Air 07/15/17 16:00 Room Air 07/15/17 15:51 37.3 86 22 127/57 (80) 94 Room Air 07/15/17 12:01 38.0 116 18 137/92 (107) 92 Room Air 07/15/17 12:00 Room Air Physical Exam General Appearance: WD/WN, no apparent distress Eyes: normal inspection ENT: normal ENT inspection, hearing grossly normal Neck: supple Respiratory/Chest: chest non-tender, lungs clear, normal breath sounds, no respiratory distress, no accessory muscle use Cardiovascular: + tachycardia Abdomen: normal bowel sounds, + tenderness (in mid- lower abdominal area) Extremities: + pedal edema Neurologic/Psychiatric: alert, normal mood/affect, oriented x 3 Skin: normal color, warm/dry Laboratory Results 07/16/17 06:24 07/16/17 06:24 Test 07/15/17 22:12 07/16/17 06:24 07/16/17 06:30 Platelet Estimate SIGNIFIC DECREASED Red Blood Count 2.36 M/uL (4.2-5.4) Mean Corpuscular Volume 91.1 fL (80-100) Mean Corpuscular Hemoglobin 30.5 pg (25-34) Mean Corpuscular Hemoglobin Concent 33.5 g/dl (32-36) RDW Standard Deviation 55.0 fL (36.4-46.3) RDW Coefficient of Variation 16.6 % (11.5-14.5) Mean Platelet Volume 8.2 fL (7.4-10.4) Est Creatinine Clear Calc Drug Dose 63.5 ml/min Estimated GFR () 77.7 Estimated GFR (Non- 67.0 Estimated Average Glucose 140 mg/dl Hemoglobin A1c 6.5 % (4.5-5.6) Bedside Glucose 113 mg/dl (70-90) Assessment and Plan 77-year-old female with lymphoma currently receiving chemotherapy , multidrug resistant UTI, right sided staghorn calculus, hypertension, diabetes presented to the ER after she sustained a mechanical fall at [facility]. CT head and neck was unremarkable, but hemoglobin was found to be low at 7.8 and platelet count was found to be 19 on admission She received 2 units of irradiated PRBC transfusion and 4 units of irradiated platelet transfusion and also was started on filgrastim. Pancytopenia - Secondary to bone marrow suppression from chemotherapy for NHL - Status post 2 units PRBC transfusion and 4 units platelet transfusion - W BC today at 0.04, and platelets at 15, hemoglobin at 7.2 - Transfused 1 unit of irrigated PRBC and 1 unit of irradiated platelets - Received filgrastim - Appreciate hematology recommendations - Monitor CBC - Fecal occult blood, positive Multidrug resistant UTI with right-sided staghorn calculus: - UA positive for 2+ occult blood and positive nitrite - Urine culture contaminated - Currently on ertapenem and vancomycin Watery diarrhea: - Stool sent for C. difficile Diabetes type 2: - Hemoglobin A1c at 6.5 - Currently on sitagliptin - ISS Neurogenic bladder: - Continue oxybutynin Mechanical fall with head injury: - Initial CT head and neck negative - Has some superficial abrasions Lymphoma: - Receiving chemotherapy at [facility] - Prophylaxis for immunosuppressive state and history of multidrug resistant UTI : Continue acyclovir and Diflucan Hypertension: -Continue losartan Vertigo: - Continue meclizine - Fall precautions DVT prophylaxis: SCDs Avoid chemical anticoagulation considering thrombocytopenia Full code Disposition: Monitor in telemetry Resident Physician Supervision Note: I was present with Dr. Eubanks during the history and exam. I discussed the case with the resident and agree with the findings and plan as documented in the note. Any exceptions or clarifications are listed here: Please see my separate note for additional information Documented By: Koffi Gupta Resident Tracking Resident Involvement: Resident Care Provided Care Provided: Adult Hospital Medicine
--- NOTE | 2017-07-16 14:36 | Progress Note ---
Progress Note Date of Service Jul 16, 2017. Progress Note Resident Physician Supervision Note: I was present with Dr. Eubanks during the history and exam. I discussed the case with the resident. Please see the resident note for additional details. My impression and plan are summarize below. 77-year-old female with pancytopenia secondary to chemotherapy for B-cell lymphoma, sepsis secondary to urinary tract infection in the setting of a staghorn calculus. She's been afebrile for the last 24 hours. The tachycardia has improved; she is now in the low 80s. Her bowel pain is less today as compared to the previous 2 days. Diet is also less and is a slight increase in her appetite. This is a slight increase in her lower extremity edema today compared to yesterday, however is no signs of congestive heart failure chest x-ray is clear. Her white blood cell count 0.04 this morning. Her hemoglobin is 7.2 and a platelet count 15,000. Her kidney function continues to look good with a creatinine of 1.0. IMPRESSION 1) High-grade NHL 2) Pancytopenia post chemotherapy 3) UTI with sepsis PLAN 1) transfusion of packed red blood cells and platelets today. 2) continue ertapenem and vancomycin. 3) continue fluconazole and acyclovir for prophylaxis. 4) care discussed with hematology this morning. 5) he also reviewed the daily labs with the patient's granddaughter.
[2017-07-16] MEDS ORDERED: NURSING VERBAL MED ORDER ONE ×2 (16:00→16:30)
[2017-07-16] MEDS: PANTOprazole INJ 40 MG in SYRINGE 0 ML IV SCH (20:56)
[2017-07-16] MEDS: ALLOPURINOL 100 MG TAB PO SCH (20:58)
[2017-07-16 21:34] LABS: PLATELET COUNT 24 K/uL (130-400)
[2017-07-16 21:35] LABS: HEMATOCRIT 25.7 % (37-47); MEAN CELL VOLUME 91.1 fL (80-100); MEAN CORPUSCULAR HEMOGLOBIN 31.2 pg (25-34); MEAN CORPUSCULAR HGB CONC 34.2 g/dl (32-36); MEAN PLATELET VOLUME 9.9 fL (7.4-10.4); RED BLOOD COUNT 2.82 M/uL (4.2-5.4)
[2017-07-16 22:31] LABS: COMPLETE YES; LYMPH ABS # 0.07 K/uL (1.2-3.4); OVALOCYTES 1+; PLT ESTIMATE SIGNIFIC DECREASED
[2017-07-16] MEDS: ERTAPENEM IV 1 GM in SODIUM CHLOR 0.9% AD-VAN 50ML 50 ML IV SCH (23:34)
[2017-07-17] VITALS: BP 154/65; PULSE 86; TEMP 36.6; O2SAT 92
[2017-07-17] MEDS: HYDROCODONE/ACETAMOPHEN 5/325MG TAB PO PRN (02:36)
[2017-07-17 04:00] VITALS: BP 162/66; PULSE 87; TEMP 36.6; O2SAT 93
[2017-07-17] MEDS: VANCOMYCIN INJ 1,250 MG in SODIUM CHLORIDE 0.9% 250ML 250 ML IV SCH ×2 (04:26→21:53)
[2017-07-17 05:56] LABS: CREATININE 0.8 mg/dl (0.60-1.20)
[2017-07-17] MEDS: INSULIN ASPART 100 UNITS/ML 3 ML PEN SC SCH ×4 (06:00→21:50)
[2017-07-17] MEDS: FENTANYL 25 MCG/HR TDSY TD SCH (06:01)
[2017-07-17] MEDS: FENTANYL PATCH REMOVE & WASTE SCH (06:02)
[2017-07-17 06:04] LABS: MEAN CELL VOLUME 89.8 fL (80-100); MEAN CORPUSCULAR HEMOGLOBIN 31.4 pg (25-34); MEAN PLATELET VOLUME 9.3 fL (7.4-10.4); PLATELET COUNT 16 K/uL (130-400); RED BLOOD COUNT 2.45 M/uL (4.2-5.4); WHITE BLOOD COUNT 0.11 K/uL (4.8-10.8)
[2017-07-17 06:10] LABS: COMPLETE YES; DOHLE BODIES 1+; LYMPH % 54.5 %; LYMPH ABS # 0.06 K/uL (1.2-3.4); MONO % 27.3 %; NEUT % 18.2 %; PLT ESTIMATE SIGNIFIC DECREASED; TOXIC GRANULATION 1+; VACUOLIZATION 1+
[2017-07-17 07:04] VITALS: BP 163/65; PULSE 80; TEMP 37.1; O2SAT 91
[2017-07-17] MEDS: CHECK FENTANYL PATCH PLACEMENT SCH ×2 (08:00→15:56)
[2017-07-17] MEDS: POT PHOSPHATE MONOBASIC W/ SOD TAB PO SCH ×4 (09:00→20:52)
[2017-07-17] MEDS: CEROVITE ADV FORMULA TAB PO SCH (09:00)
[2017-07-17] MEDS: DOCUSATE SODIUM 100 MG CAP PO SCH ×2 (09:00→20:51)
[2017-07-17] MEDS: ALBUTEROL HFA 8 GM INHALER INH SCH ×4 (09:00→20:51)
[2017-07-17] MEDS: FLUTICASONE PROPIONATE NA SPR 16 GM BTL NAE SCH (09:00)
[2017-07-17] MEDS: POTASSIUM CHLORIDE 20 MEQ TABCR PO SCH (09:00)
[2017-07-17] MEDS: ONDANSETRON INJ 2 MG/ML 2 ML VIAL IV PRN (09:35)
[2017-07-17] MEDS: SODIUM CHLORIDE 0.9% 10ML FLUSH IV SCH (09:36)
[2017-07-17] MEDS: FLUCONAZOLE 100MG / NSS IV SCH (09:36)
[2017-07-17] MEDS: FoLIC ACID INJ 1 MG in SYRINGE 9.8 ML IV SCH (09:36)
[2017-07-17] MEDS: FILGRASTIM 480 MCG/1.6 ML VIAL SC SCH (09:36)
[2017-07-17] MEDS: ACYCLOVIR SOD INJ 500 MG in DEXTROSE 5% 100ML 100 ML IV SCH ×2 (09:36→20:54)
[2017-07-17] MEDS: DRONABINOL 2.5 MG CAP PO SCH (09:38)
[2017-07-17] MEDS: HYDROCODONE/ACETAMOPHEN 5/325MG TAB PO SCH ×3 (09:38→20:54)
[2017-07-17] MEDS: LIDODERM (LIDOCAINE) PATCH 5% TD SCH (09:38)
[2017-07-17] MEDS: LOSARTAN POTASSIUM 50 MG TAB PO SCH (09:39)
[2017-07-17] MEDS: OXYBUTYNIN CHLORIDE 5 MG TABCR PO SCH (09:39)
--- NOTE | 2017-07-17 09:56 | Family Medicine Progress Note ---
Progress Note Date of Service Jul 17, 2017. Subjective Pt evaluation today including: conversation w/ patient, conversation w/ family , physical exam, chart review, lab review Pain: has a mild headache PO Intake: ok 77-year-old female with lymphoma currently receiving chemotherapy , multidrug resistant UTI, right sided staghorn calculus, hypertension, diabetes presented to the ER after she sustained a mechanical fall at [facility]. CT head and neck was unremarkable, but hemoglobin was found to be low at 7.8 and platelet count was found to be 19 on admission She received 2 units of irradiated PRBC transfusion and 4 units of irradiated platelet transfusion and also was started on filgrastim. received another unit of pRBC transfusion and a unit of platelets yesterday c/o a mild headache but denied any N/T , weakness, blurriness of vision or slurred speech denies abdominal pain. no CP/SOB/palpitations Constitutional: No fever, No chills Eyes: No worsening of vision ENT: No hearing loss Respiratory: No cough, No sputum, No shortness of breath Cardiovascular: No chest pain, No orthopnea Breast: No breast lump Abdomen: + diarrhea, No pain, No nausea, No vomiting Musculoskeletal: No joint pain Female : No dysuria, No urinary frequency Neurologic: No memory loss Psychiatric: No depression symptoms Medications Current Inpatient Medications Medications (Trade) Dose Ordered Sig/[place] Route Start Time Stop Time Status Last Admin Dose Admin Zolpidem Tartrate (Ambien Tab) 5 mg HSZ PRN PO 07/11/17 03:30 08/10/17 03:29 Ondansetron HCl (Zofran Inj) 4 mg Q6H PRN IV 07/11/17 03:30 08/10/17 03:29 07/16/17 18:33 4 MG Acetaminophen (Tylenol Tab) 500 mg Q4 PRN PO 07/11/17 05:00 08/10/17 04:59 07/14/17 22:59 500 MG Albuterol (Ventolin Hfa Inhaler) 2 puffs QID INH 07/11/17 08:00 08/10/17 07:59 07/15/17 22:12 2 PUFFS Allopurinol (Zyloprim Tab) 200 mg QPM PO 07/11/17 21:00 08/10/17 20:59 07/16/17 20:58 200 MG Calcium Carbonate (Tums Chew Tab) 500 mg Q4 PRN PO 07/11/17 05:00 08/10/17 04:59 Docusate Sodium (coLACE CAP) 100 mg AMHS PO 07/11/17 08:00 08/10/17 07:59 07/15/17 22:11 100 MG Dronabinol (Marinol Cap) 2.5 mg QAM PO 07/11/17 08:00 08/10/17 07:59 07/16/17 09:03 2.5 MG Fentanyl (Duragesic Patch) 25 mcg Q72H TD 07/11/17 06:00 07/25/17 05:59 07/17/17 06:01 25 MCG Fluticasone Propionate (Flonase Nasal [place]) 2 sprays DAILY VIGNESH 07/11/17 08:00 08/10/17 07:59 07/13/17 08:11 2 SPRAYS Heparin Sodium (Porcine) (Heparin 10 Unit/ ml 5 ml Flush) 5 ml DAILY FLUSH 07/11/17 08:00 08/10/17 07:59 07/16/17 08:52 5 ML Acetaminophen/ Hydrocodone Bitart ([place] 5/325 Tab) 1 tab TID PO 07/11/17 08:00 07/25/17 07:59 07/16/17 20:57 1 TAB Acetaminophen/ Hydrocodone Bitart ([place] 5/325 Tab) 1 tab Q4 PRN PO 07/11/17 05:00 07/25/17 04:59 07/17/17 02:36 1 TAB Lidocaine (Lidoderm Patch 5%) 1 patch QAM TD 07/11/17 08:00 08/10/17 07:59 Losartan Potassium (coZAAR TAB) 100 mg DAILY PO 07/11/17 08:00 08/10/17 07:59 07/16/17 09:04 100 MG Meclizine HCl (Antivert Tab) 25 mg TID PRN PO 07/11/17 05:00 08/10/17 04:59 07/13/17 17:48 25 MG Multivitamins/ Minerals (Multivitamin W/ Minerals Tab) 1 tab DAILY PO 07/11/17 08:00 08/10/17 07:59 07/13/17 08:12 1 TAB Nitrofurantoin Macrocrystals (Macrobid Cap) 100 mg BID PO 07/11/17 08:00 08/10/17 07:59 Future Hold 07/14/17 22:05 100 MG Ondansetron HCl (Zofran Tab) 4 mg Q6 PRN PO 07/11/17 05:00 08/10/17 04:59 Oxybutynin Chloride (Ditropan-Xl Tab) 10 mg QAM PO 07/11/17 08:00 08/10/17 07:59 07/15/17 10:43 10 MG Potassium/ Phosphorus/Sodium (Phospha 250 Neutral 155-852-130 Mg) 1 tab QID PO 07/11/17 08:00 08/10/17 07:59 07/16/17 14:09 1 TAB Potassium Chloride (Klor-Con Tab) 40 meq DAILY PO 07/11/17 08:00 08/10/17 07:59 07/13/17 08:12 40 MEQ Prednisone (PredniSONE TAB) 50 mg DAILY PO 07/11/17 08:00 08/10/17 07:59 Future Hold 07/12/17 08:05 50 MG Prochlorperazine (Compazine Supp) 25 mg Q6H PRN MA 07/11/17 05:00 08/10/17 04:59 Senna/Docusate Sodium (Senokot S Tab) 1 tab Q24H PRN PO 07/11/17 05:00 08/10/17 04:59 Sitagliptin Phosphate (Januvia Tab) 100 mg QAM PO 07/11/17 08:00 08/10/17 07:59 Future Hold 07/15/17 10:03 100 MG Sodium Chloride (Sodium Chloride 0.9% 10 ml Flush) 10 ml DAILY IV 07/11/17 08:00 08/10/17 07:59 07/16/17 08:57 10 ML Miscellaneous (Fentanyl Patch Remove & Waste) 1 ea Q3D N/A 07/11/17 05:59 08/10/17 05:58 07/17/17 06:02 1 EA Miscellaneous Information (Check Fentanyl Patch Placement) 1 ea QS N/A 07/11/17 08:00 08/10/17 07:59 07/17/17 08:00 1 EA Miscellaneous (Remove Lidoderm Patch) 1 ea DAILY@21 N/A 07/11/17 21:00 08/10/17 20:59 07/14/17 22:03 1 EA Glucose (Glucose 40% Gel) 15-30 GRAMS 15 GRAMS... UD PRN PO 07/12/17 21:45 08/11/17 21:44 Glucose (Glucose Chew Tab) 4-8 Tablets 4 Tabl... UD PRN PO 07/12/17 21:45 08/11/17 21:44 Dextrose (Dextrose 50% 50ML Syringe) 25-50ML OF 50% DW IV FOR... UD PRN IV 07/12/17 21:45 08/11/17 21:44 Glucagon (Glucagon Inj) 1 mg UD PRN SQ 07/12/17 21:45 08/11/17 21:44 Magnesium Hydroxide (Milk Of Magnesia Susp) 30 ml Q6H PRN PO 07/13/17 18:45 08/12/17 18:44 07/13/17 23:59 30 ML Polyethylene (Miralax Powder Packet) 17 gm DAILY PRN PO 07/13/17 18:45 08/12/17 18:44 Morphine Sulfate (MoRPHine SULFATE INJ) 2 mg Q4H PRN IV 07/14/17 18:45 07/28/17 18:44 07/15/17 06:44 2 MG Ioversol (Optiray 320) 100 ml UD PRN IV 07/14/17 20:00 07/18/17 19:59 Diphenhydramine HCl (Benadryl Inj) 12.5 mg Q6H PRN IV 07/14/17 20:30 08/13/17 20:29 Ertapenem 1 gm/ Sodium Chloride 50 ml @ 120 mls/hr Q24H IV 07/15/17 00:00 07/25/17 00:00 07/16/17 23:34 120 MLS/HR Potassium Chloride/Sodium Chloride 1,000 ml @ 80 mls/hr [id number] IV 07/15/17 05:00 08/14/17 04:59 07/16/17 23:35 80 MLS/HR Filgrastim (Neupogen Sq) 480 mcg DAILY SC 07/15/17 13:00 08/14/17 12:59 07/16/17 09:03 480 MCG Pantoprazole Sodium 40 mg/ Syringe 10 ml @ 5 mls/min DAILY@2100 IV 07/15/17 21:00 08/14/17 20:59 07/16/17 20:56 5 MLS/MIN Fluconazole/ Sodium Chloride 100 mg/Prmx 50 ml @ 100 mls/hr QAM IV 07/16/17 09:00 08/15/17 08:59 07/16/17 08:52 100 MLS/HR Folic Acid 1 mg/ Syringe 10 ml @ 5 mls/min DAILY IV 07/16/17 09:00 08/15/17 08:59 07/16/17 08:57 5 MLS/MIN Vancomycin HCl (Consult) 1 ea UD PRN N/A 07/15/17 15:15 08/14/17 15:14 Acyclovir Sodium 500 mg/Dextrose 110 ml @ 100 mls/hr Q12 IV 07/15/17 21:00 08/14/17 20:59 07/16/17 20:55 100 MLS/HR Miscellaneous Information (Consult Glycemic Management Pharmacy) 1 ea UD N/A 07/15/17 16:25 08/14/17 16:24 Vancomycin HCl 1250 mg/Sodium Chloride 275 ml @ 125 mls/hr Q18H IV 07/16/17 10:00 07/25/17 09:59 07/17/17 04:26 125 MLS/HR Insulin Aspart (novoLOG ASPART) SLIDING SCALE G... Q6 SC 07/15/17 18:00 08/14/17 17:59 07/15/17 23:55 1 UNITS Objective Vital Signs Date Time Temp Pulse Resp B/P (MAP) Pulse Ox O2 Delivery O2 Flow Rate FiO2 07/17/17 07:04 37.1 80 18 163/65 (97) 91 Room Air 07/17/17 04:00 36.6 87 20 162/66 (98) 93 Room Air 07/17/17 04:00 Room Air 07/17/17 00:00 36.6 86 18 154/65 (94) 92 07/17/17 00:00 Room Air 07/16/17 20:51 37.8 86 20 172/83 (112) 90 Room Air 07/16/17 20:00 Room Air 07/16/17 18:34 36.8 80 20 167/85 92 07/16/17 17:34 36.7 85 20 167/72 92 07/16/17 17:04 36.8 86 20 103/93 93 07/16/17 16:43 36.8 87 20 170/89 98 07/16/17 16:00 Room Air 07/16/17 15:46 37.0 82 20 148/69 (95) 97 Nasal Cannula 1.0 07/16/17 13:05 36.6 84 20 144/72 91 2.0 07/16/17 12:35 36.7 81 20 143/79 97 2.0 07/16/17 12:19 36.4 86 18 150/65 97 2.0 07/16/17 12:01 37.4 107 20 122/54 (76) 92 Room Air 07/16/17 12:00 Room Air Physical Exam General Appearance: WD/WN, no apparent distress Eyes: normal inspection ENT: hearing grossly normal Neck: supple Respiratory/Chest: chest non-tender, no respiratory distress, no accessory muscle use Cardiovascular: regular rate, rhythm Abdomen: normal bowel sounds, non tender, soft Extremities: normal range of motion, + pedal edema Neurologic/Psychiatric: alert, normal mood/affect, oriented x 3 Laboratory Results 07/17/17 05:04 Red Blood Count 2.45, Mean Corpuscular Volume 89.8, Mean Corpuscular Hemoglobin 31.4, Mean Corpuscular Hemoglobin Concent 35.0, Mean Platelet Volume 9.3, Neutrophils (%) (Auto) 18.2, Lymphocytes (%) (Auto) 54.5, Monocytes (%) (Auto) 27.3, Eosinophils (%) (Auto) 0.0, Basophils (%) (Auto) 0.0, Neutrophils # (Auto ) 0.02, Lymphocytes # (Auto) 0.06, Monocytes # (Auto) 0.03, Eosinophils # (Auto ) 0.00, Basophils # (Auto) 0.00 07/17/17 05:04 Test 07/16/17 20:44 07/17/17 05:04 07/17/17 06:00 Neutrophils % (Manual) 18.0 % Band Neutrophils % (Manual) 0.0 % Lymphocytes % (Manual) 74.0 % Variant Lymphocytes % (manual) 0.0 % Monocytes % (Manual) 2.0 % Eosinophils % (Manual) 4.0 % Basophils % (Manual) 2.0 % Neutrophils # (Manual) 0.02 K/uL (1.4-6.5) Total Absolute Neutrophils 0.02 K/uL (1.4-6.5) Lymphocytes # (Manual) 0.07 K/uL (1.2-3.4) Total Absolute Lymphocytes 0.07 K/uL (1.2-3.4) Monocytes # (Manual) 0.00 K/uL (0.11-0.59) Eosinophils # (Manual) 0.00 K/uL (0-0.5) Basophils # (Manual) 0.00 K/uL (0-0.2) Percent Large Granular Lymphocytes 0.0 % Ovalocytes 1+ White Blood Count 0.11 K/uL (4.8-10.8) Red Blood Count 2.45 M/uL (4.2-5.4) Hemoglobin 7.7 g/dL (12.0-16.0) Hematocrit 22.0 % (37-47) Mean Corpuscular Volume 89.8 fL (80-100) Mean Corpuscular Hemoglobin 31.4 pg (25-34) Mean Corpuscular Hemoglobin Concent 35.0 g/dl (32-36) Platelet Count 16 K/uL (130-400) Mean Platelet Volume 9.3 fL (7.4-10.4) Neutrophils (%) (Auto) 18.2 % Lymphocytes (%) (Auto) 54.5 % Monocytes (%) (Auto) 27.3 % Eosinophils (%) (Auto) 0.0 % Basophils (%) (Auto) 0.0 % Neutrophils # (Auto) 0.02 K/uL (1.4-6.5) Lymphocytes # (Auto) 0.06 K/uL (1.2-3.4) Monocytes # (Auto) 0.03 K/uL (0.11-0.59) Eosinophils # (Auto) 0.00 K/uL (0-0.5) Basophils # (Auto) 0.00 K/uL (0-0.2) RDW Standard Deviation 52.7 fL (36.4-46.3) RDW Coefficient of Variation 15.9 % (11.5-14.5) Immature Granulocyte % (Auto) 0.0 % Immature Granulocyte # (Auto) 0.00 K/uL (0.00-0.02) Toxic Granulation 1+ Toxic Vacuolation 1+ Dohle Bodies 1+ Platelet Estimate SIGNIFIC DECREASED Red Blood Cell Morphology Unremarkable Est Creatinine Clear Calc Drug Dose 67.5 ml/min Estimated GFR () 83.6 Estimated GFR (Non- 72.1 Bedside Glucose 119 mg/dl (70-90) Assessment and Plan 77-year-old female with lymphoma currently receiving chemotherapy , multidrug resistant UTI, right sided staghorn calculus, hypertension, diabetes presented to the ER after she sustained a mechanical fall at [facility]. CT head and neck was unremarkable, but hemoglobin was found to be low at 7.8 and platelet count was found to be 19 on admission She received 2 units of irradiated PRBC transfusion and 4 units of irradiated platelet transfusion and also was started on filgrastim. received 1 unit of PRBC and 1 unit of platelet transfusion yesterday Pancytopenia secondary to BMS from chemotherapy for NHL - Status post 3 units PRBC transfusion and 5 units platelet transfusion - WBC today at 0.11 from 0.04, and platelets at 16, hemoglobin at 7.7 - Received filgrastim - Appreciate hematology recommendations - Fecal occult blood positive - Monitor CBC, consider transfusion if hgb < 7.5, platelets <15 but would be wary of fluid overload Multidrug resistant UTI with right-sided staghorn calculus: - UA positive for 2+ occult blood and positive nitrite - Currently on ertapenem and vancomycin Watery diarrhea: improved - negative for C. difficile Diabetes type 2: - Hemoglobin A1c at 6.5 - Currently on sitagliptin - ISS Neurogenic bladder: - Continue oxybutynin Mechanical fall with head injury: - Initial CT head and neck negative - Has some superficial abrasions - pain mgmt with home meds Lymphoma: - Receiving chemotherapy at [facility] - Prophylaxis for immunosuppressive state and history of multidrug resistant UTI : Continue acyclovir and Diflucan Hypertension: -Continue losartan Back pain: - continue home meds Vertigo: - Continue meclizine - Fall precautions DVT prophylaxis: SCDs Avoid chemical anticoagulation considering thrombocytopenia Full code Disposition: Monitor in telemetry Resident Physician Supervision Note: I was present with Dr. Eubanks during the history and exam. I discussed the case with the resident and agree with the findings and plan as documented in the note. Documented By: Koffi Gupta Resident Tracking Resident Involvement: Resident Care Provided Care Provided: Adult Hospital Medicine
[2017-07-17] MEDS: NSS + 20MEQ KCL 1000ML 1,000 ML IV SCH ×2 (10:04→21:53)
[2017-07-17 10:15] LABS: POTASSIUM 3.7 mmol/L (3.5-5.1)
[2017-07-17 12:22] VITALS: BP 157/77; PULSE 91; TEMP 36.5; O2SAT 92
[2017-07-17] MEDS ORDERED: NURSING VERBAL MED ORDER ONE (12:30)
[2017-07-17] MEDS: NYSTATIN SUSP 500,000 U/5 ML UDC PO SCH ×3 (12:50→20:54)
--- NOTE | 2017-07-17 13:04 | Pharmacy Progress Note ---
Glycemic Control Progress Note Date of Service Jul 17, 2017. Scope Glycemic Pharmacist consulted for glycemic control to write orders per [facility] inpatient glycemic control protocol. Objective Accuchecks BSG (last 24hrs): Test 07/16/17 18:15 07/16/17 23:36 07/17/17 06:00 07/17/17 12:02 Bedside Glucose 140 mg/dl (70-90) 135 mg/dl (70-90) 119 mg/dl (70-90) 142 mg/dl (70-90) HbA1c: Test 07/16/17 06:24 Hemoglobin A1c 6.5 % (4.5-5.6) H Recent Pertinent Medications The patient is currently receiving: * Basal insulin: No basal insulin * Correctional Insulin: Novolog Correction per scale ACHS Goal Range: Low 110 mg/dL - High 140 mg/dL Correction Factor: 15 mg/dL/unit * Prandial insulin: Per carb ratio of 1 unit per 8 grams CHO consumed * Oral Agents: Januvia is currently on hold Outpatient Anti-Diabetic Meds Januvia 100 mg PO daily Assessment & Plan ASSESSMENT: * See progress note from 07/15/17 for more background info, in short: Ms Perez is a 77 y/o F admitted with neutropenic fever from lymphoma treatment. * Pt receiving SQ basal bolus insulin regimen for hyperglycemia secondary to baseline DM (outpatient regimen on hold) and infection from neutropenic fever ( on numerous antibiotics). She is on steroids at home (prednisone 50 mg daily) but this is currently held. * Patient is currently receiving an average of 10 units of insulin per day * 0 units of basal insulin * 8 units of prandial/correctional insulin (received no insulin yesterday though) * BSGs ranging 113 - 142 mg/dl over the past 24hrs * Changes needed to insulin regimen: * AM Fasting BSG = 119 mg/dl. This is in slightly below goal range for patient based on inpatient targets and co-morbidities. Continue current correctional insulin. Blood sugar at lunch slightly elevated so added Lantus ( half of weight based stress of 1 daily dose) for if evening blood sugar greater than 160 mg/dL. * Post-prandial BSGs are in range therefore no changes needed to CF/CR. Loosened correctional insulin with Lantus order. * Total daily dose = 10? units. This dosing is yielding adequate glycemic control. * Additional notes / comments: Danie is currently still on hold. Will resume once adequate oral intake is established. PLAN FOR INPATIENT GLYCEMIC CONTROL: * ADDITION OF Lantus to 10 units SQ tonight if blood sugar greater than 160 mg/ dL * LOOSENING correction factor to 20 mg/dl/unit * Continuing carb ratio of 1 unit per 8 grams CHO consumed * Continuing goal range if Low 110 mg/dL - High 140 mg/dL RECOMMENDATIONS FOR DISCHARGE: * With well controlled A1C it is reasonable to continue home regimen. * Please note that the plan above was derived based on current level of insulin resistance and hospital stress. These recommendations are appropriate for inpatient admission only. Plan of care upon discharge will need to be reassessed to avoid potential outpatient hypo/hyperglycemia. Thank you.
[2017-07-17 15:56] VITALS: BP 168/69; PULSE 85; TEMP 36.5; O2SAT 93
[2017-07-17 19:18] VITALS: BP 174/87; PULSE 81; TEMP 36.4; O2SAT 94
[2017-07-17 20:27] LABS: HEMATOCRIT 24.5 % (37-47); MEAN CELL VOLUME 90.7 fL (80-100); MEAN CORPUSCULAR HEMOGLOBIN 31.1 pg (25-34); MEAN CORPUSCULAR HGB CONC 34.3 g/dl (32-36); MEAN PLATELET VOLUME 9.8 fL (7.4-10.4); PLATELET COUNT 11 K/uL (130-400); WHITE BLOOD COUNT 0.27 K/uL (4.8-10.8)
[2017-07-17 20:54] LABS: BASO ABS # 0.01 K/uL (0-0.2); COMPLETE YES; DOHLE BODIES 1+; LYMPH ABS # 0.13 K/uL (1.2-3.4); TOXIC GRANULATION 1+; VACUOLIZATION 1+
[2017-07-17] MEDS: ALLOPURINOL 100 MG TAB PO SCH (20:54)
[2017-07-17] MEDS: PANTOprazole INJ 40 MG in SYRINGE 0 ML IV SCH (20:55)
[2017-07-17] MEDS ORDERED: LANTUS PER UNIT CHARGE SQ PRN (21:00)
[2017-07-17] MEDS ORDERED: VANCOMYCIN TROUGH ONE (21:30)
[2017-07-17] MEDS ORDERED: NURSING DECISION MEDICATION ORDER SCH (21:45)
[2017-07-18] VITALS (17 sets, daily range): BP systolic 124–191; BP diastolic 73–105; PULSE 72–98; TEMP 36.5–37.1; O2SAT 92–99
[2017-07-18] MEDS: ERTAPENEM IV 1 GM in SODIUM CHLOR 0.9% AD-VAN 50ML 50 ML IV SCH ×2 (00:27→23:35)
[2017-07-18] MEDS: CHECK FENTANYL PATCH PLACEMENT SCH ×4 (00:28→23:35)
[2017-07-18] MEDS: ONDANSETRON INJ 2 MG/ML 2 ML VIAL IV PRN ×2 (04:39→09:33)
[2017-07-18 04:43] LABS: BUN/CREATININE RATIO 20.4 (10-20); CREATININE 0.71 mg/dl (0.60-1.20)
[2017-07-18 04:44] LABS: CALCIUM 7.4 mg/dl (8.5-10.1); POTASSIUM 3.9 mmol/L (3.5-5.1)
[2017-07-18 04:49] LABS: HEMATOCRIT 23.3 % (37-47); MEAN CORPUSCULAR HEMOGLOBIN 30.1 pg (25-34); MEAN PLATELET VOLUME 8.2 fL (7.4-10.4); PLATELET COUNT 7 K/uL (130-400); RED BLOOD COUNT 2.56 M/uL (4.2-5.4); WHITE BLOOD COUNT 0.34 K/uL (4.8-10.8)
[2017-07-18 05:26] LABS: COMPLETE YES; DOHLE BODIES 3+; LYMPH % 26.5 %; LYMPH ABS # 0.09 K/uL (1.2-3.4); MONO % 26.5 %; TOXIC GRANULATION 1+; VACUOLIZATION 3+
--- NOTE | 2017-07-18 05:50 | Progress Note ---
Progress Note Date of Service Jul 18, 2017. Progress Note Paged regarding AM labs Platelet count down to 7; no active bleeding noted, pt hemodynamically stable Patient has received 5 units of platelets so far this admission Orders placed to hold 2 units Platelets Transfuse 1 unit of Platelet; decision to administer 2nd unit at discretion of day team
[2017-07-18] MEDS: HYDROCODONE/ACETAMOPHEN 5/325MG TAB PO PRN (06:28)
[2017-07-18] MEDS: INSULIN ASPART 100 UNITS/ML 3 ML PEN SC SCH ×4 (07:00→20:39)
--- NOTE | 2017-07-18 07:17 | Family Medicine Progress Note ---
Progress Note Date of Service Jul 18, 2017. Subjective Pt evaluation today including: conversation w/ patient, physical exam, chart review, lab review, review of studies, conversation w/ alliances consultant, review of inpatient medication list Pain: denies PO Intake: adequate Voiding: no voiding problems Patient reports fatigue, cough, Patient had been on Room air overnight but she desaturated this morning while I was in the room to 85 % . Patient was subsequently placed on 2L NC and saturation improved. Constitutional: + fatigue, No fever, No chills Respiratory: + cough, No wheezing, No shortness of breath Cardiovascular: No chest pain, No edema, No palpitations Abdomen: No pain, No nausea, No vomiting Female : No dysuria, No urinary frequency Skin: No rash, No itch Medications Current Inpatient Medications Medications (Trade) Dose Ordered Sig/[place] Route Start Time Stop Time Status Last Admin Dose Admin Zolpidem Tartrate (Ambien Tab) 5 mg HSZ PRN PO 07/11/17 03:30 08/10/17 03:29 Ondansetron HCl (Zofran Inj) 4 mg Q6H PRN IV 07/11/17 03:30 08/10/17 03:29 07/18/17 09:33 4 MG Acetaminophen (Tylenol Tab) 500 mg Q4 PRN PO 07/11/17 05:00 08/10/17 04:59 07/14/17 22:59 500 MG Albuterol (Ventolin Hfa Inhaler) 2 puffs QID INH 07/11/17 08:00 08/10/17 07:59 07/15/17 22:12 2 PUFFS Allopurinol (Zyloprim Tab) 200 mg QPM PO 07/11/17 21:00 08/10/17 20:59 07/17/17 20:54 200 MG Calcium Carbonate (Tums Chew Tab) 500 mg Q4 PRN PO 07/11/17 05:00 08/10/17 04:59 Docusate Sodium (coLACE CAP) 100 mg AMHS PO 07/11/17 08:00 08/10/17 07:59 07/15/17 22:11 100 MG Dronabinol (Marinol Cap) 2.5 mg QAM PO 07/11/17 08:00 08/10/17 07:59 07/18/17 09:34 2.5 MG Fentanyl (Duragesic Patch) 25 mcg Q72H TD 07/11/17 06:00 07/25/17 05:59 07/17/17 06:01 25 MCG Fluticasone Propionate (Flonase Nasal [place]) 2 sprays DAILY VIGNESH 07/11/17 08:00 08/10/17 07:59 07/13/17 08:11 2 SPRAYS Heparin Sodium (Porcine) (Heparin 10 Unit/ ml 5 ml Flush) 5 ml DAILY FLUSH 07/11/17 08:00 08/10/17 07:59 07/17/17 09:00 5 ML Acetaminophen/ Hydrocodone Bitart ([place] 5/325 Tab) 1 tab TID PO 07/11/17 08:00 07/25/17 07:59 07/18/17 09:56 1 TAB Acetaminophen/ Hydrocodone Bitart ([place] 5/325 Tab) 1 tab Q4 PRN PO 07/11/17 05:00 07/25/17 04:59 07/18/17 06:28 1 TAB Lidocaine (Lidoderm Patch 5%) 1 patch QAM TD 07/11/17 08:00 08/10/17 07:59 07/18/17 09:39 1 PATCH Losartan Potassium (coZAAR TAB) 100 mg DAILY PO 07/11/17 08:00 08/10/17 07:59 07/18/17 09:39 100 MG Meclizine HCl (Antivert Tab) 25 mg TID PRN PO 07/11/17 05:00 08/10/17 04:59 07/13/17 17:48 25 MG Multivitamins/ Minerals (Multivitamin W/ Minerals Tab) 1 tab DAILY PO 07/11/17 08:00 08/10/17 07:59 07/13/17 08:12 1 TAB Nitrofurantoin Macrocrystals (Macrobid Cap) 100 mg BID PO 07/11/17 08:00 08/10/17 07:59 Future Hold 07/14/17 22:05 100 MG Ondansetron HCl (Zofran Tab) 4 mg Q6 PRN PO 07/11/17 05:00 08/10/17 04:59 Oxybutynin Chloride (Ditropan-Xl Tab) 10 mg QAM PO 07/11/17 08:00 08/10/17 07:59 07/18/17 09:40 10 MG Potassium/ Phosphorus/Sodium (Phospha 250 Neutral 155-852-130 Mg) 1 tab QID PO 07/11/17 08:00 08/10/17 07:59 07/18/17 09:38 1 TAB Potassium Chloride (Klor-Con Tab) 40 meq DAILY PO 07/11/17 08:00 08/10/17 07:59 07/13/17 08:12 40 MEQ Prednisone (PredniSONE TAB) 50 mg DAILY PO 07/11/17 08:00 08/10/17 07:59 Future Hold 07/12/17 08:05 50 MG Prochlorperazine (Compazine Supp) 25 mg Q6H PRN AL 07/11/17 05:00 08/10/17 04:59 Senna/Docusate Sodium (Senokot S Tab) 1 tab Q24H PRN PO 07/11/17 05:00 08/10/17 04:59 Sitagliptin Phosphate (Januvia Tab) 100 mg QAM PO 07/11/17 08:00 08/10/17 07:59 Future Hold 07/15/17 10:03 100 MG Sodium Chloride (Sodium Chloride 0.9% 10 ml Flush) 10 ml DAILY IV 07/11/17 08:00 08/10/17 07:59 07/18/17 09:10 10 ML Miscellaneous (Fentanyl Patch Remove & Waste) 1 ea Q3D N/A 07/11/17 05:59 08/10/17 05:58 07/17/17 06:02 1 EA Miscellaneous Information (Check Fentanyl Patch Placement) 1 ea QS N/A 07/11/17 08:00 08/10/17 07:59 07/18/17 09:09 1 EA Miscellaneous (Remove Lidoderm Patch) 1 ea DAILY@21 N/A 07/11/17 21:00 08/10/17 20:59 07/17/17 20:55 1 EA Glucose (Glucose 40% Gel) 15-30 GRAMS 15 GRAMS... UD PRN PO 07/12/17 21:45 08/11/17 21:44 Glucose (Glucose Chew Tab) 4-8 Tablets 4 Tabl... UD PRN PO 07/12/17 21:45 08/11/17 21:44 Dextrose (Dextrose 50% 50ML Syringe) 25-50ML OF 50% DW IV FOR... UD PRN IV 07/12/17 21:45 08/11/17 21:44 Glucagon (Glucagon Inj) 1 mg UD PRN SQ 07/12/17 21:45 08/11/17 21:44 Magnesium Hydroxide (Milk Of Magnesia Susp) 30 ml Q6H PRN PO 07/13/17 18:45 08/12/17 18:44 07/13/17 23:59 30 ML Polyethylene (Miralax Powder Packet) 17 gm DAILY PRN PO 07/13/17 18:45 08/12/17 18:44 Morphine Sulfate (MoRPHine SULFATE INJ) 2 mg Q4H PRN IV 07/14/17 18:45 07/28/17 18:44 07/15/17 06:44 2 MG Ioversol (Optiray 320) 100 ml UD PRN IV 07/14/17 20:00 07/18/17 19:59 Diphenhydramine HCl (Benadryl Inj) 12.5 mg Q6H PRN IV 07/14/17 20:30 08/13/17 20:29 Ertapenem 1 gm/ Sodium Chloride 50 ml @ 120 mls/hr Q24H IV 07/15/17 00:00 07/25/17 00:00 07/18/17 00:27 120 MLS/HR Potassium Chloride/Sodium Chloride 1,000 ml @ 80 mls/hr [id number] IV 07/15/17 05:00 08/14/17 04:59 07/18/17 09:56 80 MLS/HR Filgrastim (Neupogen Sq) 480 mcg DAILY SC 07/15/17 13:00 08/14/17 12:59 07/18/17 09:35 480 MCG Pantoprazole Sodium 40 mg/ Syringe 10 ml @ 5 mls/min DAILY@2100 IV 07/15/17 21:00 08/14/17 20:59 07/17/17 20:55 5 MLS/MIN Fluconazole/ Sodium Chloride 100 mg/Prmx 50 ml @ 100 mls/hr QAM IV 07/16/17 09:00 08/15/17 08:59 07/18/17 09:07 100 MLS/HR Folic Acid 1 mg/ Syringe 10 ml @ 5 mls/min DAILY IV 07/16/17 09:00 08/15/17 08:59 07/18/17 09:09 5 MLS/MIN Vancomycin HCl (Consult) 1 ea UD PRN N/A 07/15/17 15:15 08/14/17 15:14 Acyclovir Sodium 500 mg/Dextrose 110 ml @ 100 mls/hr Q12 IV 07/15/17 21:00 08/14/17 20:59 07/18/17 09:56 100 MLS/HR Miscellaneous Information (Consult Glycemic Management Pharmacy) 1 ea UD N/A 07/15/17 16:25 08/14/17 16:24 Vancomycin HCl 1250 mg/Sodium Chloride 275 ml @ 125 mls/hr Q18H IV 07/16/17 10:00 07/25/17 09:59 07/17/17 21:53 125 MLS/HR Nystatin (Mycostatin Susp) 5 ml QID PO 07/17/17 13:00 07/27/17 12:59 07/18/17 09:38 5 ML Insulin Aspart (novoLOG ASPART) SLIDING SCALE G... ACHS SC 07/17/17 22:00 08/16/17 21:59 Objective Vital Signs Date Time Temp Pulse Resp B/P (MAP) Pulse Ox O2 Delivery O2 Flow Rate FiO2 07/18/17 10:30 36.9 72 18 178/105 97 2.0 07/18/17 10:00 36.5 85 20 183/97 94 2.0 07/18/17 08:00 37.1 82 18 153/79 94 2.0 07/18/17 08:00 Nasal Cannula 2.0 07/18/17 07:00 37.1 81 18 161/86 92 07/18/17 06:32 36.6 88 22 190/87 92 07/18/17 06:12 36.7 95 20 183/97 93 07/18/17 06:03 36.5 82 22 177/83 93 07/18/17 04:09 36.8 87 22 175/88 (117) 92 Room Air 07/18/17 04:00 Room Air 07/18/17 00:00 36.5 73 20 158/83 (108) 94 Room Air 07/18/17 00:00 Room Air 07/17/17 20:00 Room Air 07/17/17 19:18 36.4 81 20 174/87 (116) 94 Room Air 07/17/17 16:00 Room Air 07/17/17 15:56 36.5 85 20 168/69 (102) 93 Room Air 07/17/17 12:22 36.5 91 18 157/77 (103) 92 Room Air 07/17/17 12:00 Room Air Physical Exam Notes: GENERAL: alert, obese, no distress EYE EXAM: normal conjunctiva, PERRL and EOM's grossly intact OROPHARYNX: no exudate, no erythema, lips, buccal mucosa, and tongue normal and mucous membranes are moist NECK: supple, no nuchal rigidity, no adenopathy, non-tender LUNGS: Clear to auscultation. Normal chest wall mechanics HEART: no murmurs, S1 normal and S2 normal ABDOMEN: abdomen soft, non-tender, normo-active bowel sounds, no masses, no rebound or guarding. UPPER EXTREMITIES: upper extremities are grossly normal. LOWER EXTREMITIES: RLE , chronic venous changes. NEURO EXAM: Normal sensorium, cranial nerves II-XII grossly intact, normal speech, Laboratory Results Results Past 24 Hours Test 07/17/17 12:02 07/17/17 18:16 07/17/17 19:34 07/17/17 20:47 Range/Units Bedside Glucose 142 114 125 70-90 mg/dl White Blood Count 0.27 4.8-10.8 K/uL Red Blood Count 2.70 4.2-5.4 M/uL Hemoglobin 8.4 12.0-16.0 g/dL Hematocrit 24.5 37-47 % Mean Corpuscular Volume 90.7 80-100 fL Mean Corpuscular Hemoglobin 31.1 25-34 pg Mean Corpuscular Hemoglobin Concent 34.3 32-36 g/dl Platelet Count 11 130-400 K/uL Mean Platelet Volume 9.8 7.4-10.4 fL RDW Standard Deviation 53.5 36.4-46.3 fL RDW Coefficient of Variation 16.2 11.5-14.5 % Neutrophils % (Manual) 43.0 % Lymphocytes % (Manual) 47.0 % Monocytes % (Manual) 7.0 % Eosinophils % (Manual) 1.0 % Basophils % (Manual) 2.0 % Neutrophils # (Manual) 0.12 1.4-6.5 K/uL Total Absolute Neutrophils 0.12 1.4-6.5 K/uL Lymphocytes # (Manual) 0.13 1.2-3.4 K/uL Total Absolute Lymphocytes 0.13 1.2-3.4 K/uL Monocytes # (Manual) 0.02 0.11-0.59 K/uL Eosinophils # (Manual) 0.00 0-0.5 K/uL Basophils # (Manual) 0.01 0-0.2 K/uL Toxic Granulation 1+ Toxic Vacuolation 1+ Dohle Bodies 1+ Red Blood Cell Morphology Unremarkable Test 07/17/17 21:34 07/18/17 04:03 07/18/17 06:25 Range/Units Vancomycin Level Trough 15.3 SEE COMMENT mcg/ml White Blood Count 0.34 4.8-10.8 K/uL Red Blood Count 2.56 4.2-5.4 M/uL Hemoglobin 7.7 12.0-16.0 g/dL Hematocrit 23.3 37-47 % Mean Corpuscular Volume 91.0 80-100 fL Mean Corpuscular Hemoglobin 30.1 25-34 pg Mean Corpuscular Hemoglobin Concent 33.0 32-36 g/dl Platelet Count 7 130-400 K/uL Mean Platelet Volume 8.2 7.4-10.4 fL Neutrophils (%) (Auto) 47.0 % Lymphocytes (%) (Auto) 26.5 % Monocytes (%) (Auto) 26.5 % Eosinophils (%) (Auto) 0.0 % Basophils (%) (Auto) 0.0 % Neutrophils # (Auto) 0.16 1.4-6.5 K/uL Lymphocytes # (Auto) 0.09 1.2-3.4 K/uL Monocytes # (Auto) 0.09 0.11-0.59 K/uL Eosinophils # (Auto) 0.00 0-0.5 K/uL Basophils # (Auto) 0.00 0-0.2 K/uL RDW Standard Deviation 53.7 36.4-46.3 fL RDW Coefficient of Variation 16.0 11.5-14.5 % Immature Granulocyte % (Auto) 0.0 % Immature Granulocyte # (Auto) 0.00 0.00-0.02 K/uL Toxic Granulation 1+ Toxic Vacuolation 3+ Dohle Bodies 3+ Sodium Level 145 136-145 mmol/L Potassium Level 3.9 3.5-5.1 mmol/L Chloride Level 113 98-107 mmol/L Carbon Dioxide Level 29 21-32 mmol/L Anion Gap 3.0 3-11 mmol/L Blood Urea Nitrogen 14 7-18 mg/dl Creatinine 0.71 0.60-1.20 mg/dl Est Creatinine Clear Calc Drug Dose 77.9 ml/min Estimated GFR () 96.6 Estimated GFR (Non- 83.3 BUN/Creatinine Ratio 20.4 10-20 Random Glucose 95 70-99 mg/dl Calcium Level 7.4 8.5-10.1 mg/dl Bedside Glucose 101 70-90 mg/dl Assessment and Plan 77 yo F w/ hx of Lymphoma on chemo managed at [place] [facility], hx of multidrug resistant UTI, Rt sided staghorn calculi, HTN, DM, p/w hx of Mechanical fall, found to be pancytopenic with Neutrophil Ct of .2 on arrival, Hb 7.8, Plt 19 on admission likely secondary to chemo. ANC improving on Filgrastim Pancytopenia: likely 2/2 BM suppression in setting of Chemotherapy - Absolute Neutrophil ct improving, Pancytopenia secondary to BMS from chemotherapy for NHL - S/p 3 units PRBC transfusion, 6 units platelet transfusion - WBC .034<-- .27 Hb 7.7 <--8.4 - Continue Filgrastim as recommended by Hem/Onc - Fecal occult blood positive - Monitor CBC, I/O - transfuse if hgb < 7.5, platelets <15 - F/u further Heme/Onc recommendations Edema - ? from fluid overload - Given 40 mg Lasix today - Monitor I/O Multidrug resistant UTI with right-sided staghorn calculus: - UA: 2+ occult blood , pos.nitrite - Cont. ertapenem and vancomycin - ppx Continue acyclovir and Diflucan Hypoxia - stepped up yo 2L NC from Ra - O2 per protocol Diabetes type 2: - Glucose controlled - Hemoglobin A1c at 6.5 - Continue sitagliptin - ISS Neurogenic bladder: - Cont. oxybutynin Mechanical fall with head injury: - CT head/ neck unremarkable - Continue pain mgmt Lymphoma: - chemotherapy managed at [facility] - F/u report from Heme ONC HTN - BP elevated , correlated with anxiety per nurse -Continue losartan -continue to monitor Back pain: - Continue pain management Vertigo: - Continue meclizine - Fall precautions DVT prophylaxis: SCDs No anticoagulation due to thrombocytopenia Full code Disposition: Plan to transfer to Floor Continued [facility] stay due to: multiple IV medications needed Discharge planning: [facility] facility Resident Tracking Resident Involvement: Resident Care Provided Care Provided: Adult [facility] Medicine Reviewed: Pt Seen/Exam by Me History feels well this am worked with PT earlier. sat at the edge of the bed. Constitutional: denies: fever Respiratory: negative: short of breath Cardiovascular: denies chest pain General Appearance: no apparent distress Respiratory: lungs clear, no respiratory distress Cardiovascular: regular rate, rhythm Gastrointestinal: soft Extremities: pedal edema Neurologic/Psychiatric: alert, oriented x 3 Skin Characteristics: warm/dry Assessment/Plan Resident Physician Supervision Note: I was present with Dr. Centeno in bedside. I verified the samson history and physical, reviewed labs and image studies, discussed the case with the resident and agree with the findings and care plan.
[2017-07-18] MEDS: ALBUTEROL HFA 8 GM INHALER INH SCH ×5 (09:00→20:37)
[2017-07-18] MEDS: FLUTICASONE PROPIONATE NA SPR 16 GM BTL NAE SCH (09:00)
[2017-07-18] MEDS: FLUCONAZOLE 100MG / NSS IV SCH (09:07)
[2017-07-18] MEDS: FoLIC ACID INJ 1 MG in SYRINGE 9.8 ML IV SCH (09:09)
[2017-07-18] MEDS: SODIUM CHLORIDE 0.9% 10ML FLUSH IV SCH (09:10)
[2017-07-18] MEDS: DRONABINOL 2.5 MG CAP PO SCH (09:34)
[2017-07-18] MEDS: FILGRASTIM 480 MCG/1.6 ML VIAL SC SCH (09:35)
[2017-07-18] MEDS: DOCUSATE SODIUM 100 MG CAP PO SCH ×3 (09:37→20:46)
[2017-07-18] MEDS: CEROVITE ADV FORMULA TAB PO SCH ×2 (09:38→09:54)
[2017-07-18] MEDS: POT PHOSPHATE MONOBASIC W/ SOD TAB PO SCH ×4 (09:38→20:38)
[2017-07-18] MEDS: NYSTATIN SUSP 500,000 U/5 ML UDC PO SCH ×4 (09:38→20:41)
[2017-07-18] MEDS: POTASSIUM CHLORIDE 20 MEQ TABCR PO SCH (09:38)
[2017-07-18] MEDS: LOSARTAN POTASSIUM 50 MG TAB PO SCH (09:39)
[2017-07-18] MEDS: LIDODERM (LIDOCAINE) PATCH 5% TD SCH (09:39)
[2017-07-18] MEDS: OXYBUTYNIN CHLORIDE 5 MG TABCR PO SCH (09:40)
[2017-07-18] MEDS: ACYCLOVIR SOD INJ 500 MG in DEXTROSE 5% 100ML 100 ML IV SCH ×2 (09:56→20:59)
[2017-07-18] MEDS: HYDROCODONE/ACETAMOPHEN 5/325MG TAB PO SCH ×3 (09:56→20:45)
[2017-07-18] MEDS: NSS + 20MEQ KCL 1000ML 1,000 ML IV SCH (09:56)
[2017-07-18] MEDS ORDERED: FUROSEMIDE 40 MG/4 ML VIAL IV STA (11:06)
--- NOTE | 2017-07-18 11:31 | Pharmacy Progress Note ---
Pharmacy Abx Dose Short Note Date of Service Jul 18, 2017. Assessment & Plan Assessment * 77 year old female receiving VANCOMYCIN IV for treatment of sepsis in the setting of pancytopenia / immunosuppression - possible source: UTI and/or pulmonary * Patient has h/o MDRO e coli UTI, however is sensitive to ertapenem which the patient is also receiving * Vancomycin was added by ID on 07/15 * Today is Day # 3 IV vancomycin therapy * She is currently afebrile, VSS - noted to be hypertensive at times, Sat well on 2L NC, WBC and Neut # slowly trending up but remain low - today 160 neutrophils * Renal fxn appears to be stable Plan Vancomycin * Trough level of 15.3 mcg/mL is therapeutic, drawn last evening prior to the 3rd maintenance dose. Level was drawn at the appropriate time. Prior doses hung at appropriate times as well. This level was drawn prior to steady-state and may continue to rise on repeat dosing. Will recheck trough level in 48 hrs (after one more maintenance dose) to screen for accumulation. Patient's body habitus does place her at risk for accumulation (BMI 42.3) * Continue dose of 1250 mg IV every 18 hours * Goal trough level for sepsis/neutropenia : 15 to 20 mcg/mL * Trough level ordered for: 07/19/17 Pharmacy will continue to follow and will adjust dose/frequency as necessary. Thank you.
--- NOTE | 2017-07-18 14:25 | Infectious Disease Progress Nt ---
Progress Note Date of Service Jul 18, 2017. Subjective Pt evaluation today including: conversation w/ patient, physical exam, chart review, lab review, review of studies, conversation w/ philatelic consultant, review of inpatient medication list C/O some cough and fatigue. WBC starting to slowly increase. Remains afebrile. All Other Systems: Reviewed and Negative Medications Current Inpatient Medications Medications (Trade) Dose Ordered Sig/[place] Route Start Time Stop Time Status Last Admin Dose Admin Zolpidem Tartrate (Ambien Tab) 5 mg HSZ PRN PO 07/11/17 03:30 08/10/17 03:29 Ondansetron HCl (Zofran Inj) 4 mg Q6H PRN IV 07/11/17 03:30 08/10/17 03:29 07/18/17 09:33 4 MG Acetaminophen (Tylenol Tab) 500 mg Q4 PRN PO 07/11/17 05:00 08/10/17 04:59 07/14/17 22:59 500 MG Albuterol (Ventolin Hfa Inhaler) 2 puffs QID INH 07/11/17 08:00 08/10/17 07:59 07/15/17 22:12 2 PUFFS Allopurinol (Zyloprim Tab) 200 mg QPM PO 07/11/17 21:00 08/10/17 20:59 07/17/17 20:54 200 MG Calcium Carbonate (Tums Chew Tab) 500 mg Q4 PRN PO 07/11/17 05:00 08/10/17 04:59 Docusate Sodium (coLACE CAP) 100 mg AMHS PO 07/11/17 08:00 08/10/17 07:59 07/15/17 22:11 100 MG Dronabinol (Marinol Cap) 2.5 mg QAM PO 07/11/17 08:00 08/10/17 07:59 07/18/17 09:34 2.5 MG Fentanyl (Duragesic Patch) 25 mcg Q72H TD 07/11/17 06:00 07/25/17 05:59 07/17/17 06:01 25 MCG Fluticasone Propionate (Flonase Nasal [place]) 2 sprays DAILY VIGNESH 07/11/17 08:00 08/10/17 07:59 07/13/17 08:11 2 SPRAYS Heparin Sodium (Porcine) (Heparin 10 Unit/ ml 5 ml Flush) 5 ml DAILY FLUSH 07/11/17 08:00 08/10/17 07:59 07/17/17 09:00 5 ML Acetaminophen/ Hydrocodone Bitart ([place] 5/325 Tab) 1 tab TID PO 07/11/17 08:00 07/25/17 07:59 07/18/17 09:56 1 TAB Acetaminophen/ Hydrocodone Bitart ([place] 5/325 Tab) 1 tab Q4 PRN PO 07/11/17 05:00 07/25/17 04:59 07/18/17 06:28 1 TAB Lidocaine (Lidoderm Patch 5%) 1 patch QAM TD 07/11/17 08:00 08/10/17 07:59 07/18/17 09:39 1 PATCH Losartan Potassium (coZAAR TAB) 100 mg DAILY PO 07/11/17 08:00 08/10/17 07:59 07/18/17 09:39 100 MG Meclizine HCl (Antivert Tab) 25 mg TID PRN PO 07/11/17 05:00 08/10/17 04:59 07/13/17 17:48 25 MG Multivitamins/ Minerals (Multivitamin W/ Minerals Tab) 1 tab DAILY PO 07/11/17 08:00 08/10/17 07:59 07/13/17 08:12 1 TAB Nitrofurantoin Macrocrystals (Macrobid Cap) 100 mg BID PO 07/11/17 08:00 08/10/17 07:59 Future Hold 07/14/17 22:05 100 MG Ondansetron HCl (Zofran Tab) 4 mg Q6 PRN PO 07/11/17 05:00 08/10/17 04:59 Oxybutynin Chloride (Ditropan-Xl Tab) 10 mg QAM PO 07/11/17 08:00 08/10/17 07:59 07/18/17 09:40 10 MG Potassium/ Phosphorus/Sodium (Phospha 250 Neutral 155-852-130 Mg) 1 tab QID PO 07/11/17 08:00 08/10/17 07:59 07/18/17 09:38 1 TAB Potassium Chloride (Klor-Con Tab) 40 meq DAILY PO 07/11/17 08:00 08/10/17 07:59 07/13/17 08:12 40 MEQ Prednisone (PredniSONE TAB) 50 mg DAILY PO 07/11/17 08:00 08/10/17 07:59 Future Hold 07/12/17 08:05 50 MG Prochlorperazine (Compazine Supp) 25 mg Q6H PRN AL 07/11/17 05:00 08/10/17 04:59 Senna/Docusate Sodium (Senokot S Tab) 1 tab Q24H PRN PO 07/11/17 05:00 08/10/17 04:59 Sitagliptin Phosphate (Januvia Tab) 100 mg QAM PO 07/11/17 08:00 08/10/17 07:59 Future Hold 07/15/17 10:03 100 MG Sodium Chloride (Sodium Chloride 0.9% 10 ml Flush) 10 ml DAILY IV 07/11/17 08:00 08/10/17 07:59 07/18/17 09:10 10 ML Miscellaneous (Fentanyl Patch Remove & Waste) 1 ea Q3D N/A 07/11/17 05:59 08/10/17 05:58 07/17/17 06:02 1 EA Miscellaneous Information (Check Fentanyl Patch Placement) 1 ea QS N/A 07/11/17 08:00 08/10/17 07:59 07/18/17 09:09 1 EA Miscellaneous (Remove Lidoderm Patch) 1 ea DAILY@21 N/A 07/11/17 21:00 08/10/17 20:59 07/17/17 20:55 1 EA Glucose (Glucose 40% Gel) 15-30 GRAMS 15 GRAMS... UD PRN PO 07/12/17 21:45 08/11/17 21:44 Glucose (Glucose Chew Tab) 4-8 Tablets 4 Tabl... UD PRN PO 07/12/17 21:45 08/11/17 21:44 Dextrose (Dextrose 50% 50ML Syringe) 25-50ML OF 50% DW IV FOR... UD PRN IV 07/12/17 21:45 08/11/17 21:44 Glucagon (Glucagon Inj) 1 mg UD PRN SQ 07/12/17 21:45 08/11/17 21:44 Magnesium Hydroxide (Milk Of Magnesia Susp) 30 ml Q6H PRN PO 07/13/17 18:45 08/12/17 18:44 07/13/17 23:59 30 ML Polyethylene (Miralax Powder Packet) 17 gm DAILY PRN PO 07/13/17 18:45 08/12/17 18:44 Morphine Sulfate (MoRPHine SULFATE INJ) 2 mg Q4H PRN IV 07/14/17 18:45 07/28/17 18:44 07/15/17 06:44 2 MG Ioversol (Optiray 320) 100 ml UD PRN IV 07/14/17 20:00 07/18/17 19:59 Diphenhydramine HCl (Benadryl Inj) 12.5 mg Q6H PRN IV 07/14/17 20:30 08/13/17 20:29 Ertapenem 1 gm/ Sodium Chloride 50 ml @ 120 mls/hr Q24H IV 07/15/17 00:00 07/25/17 00:00 07/18/17 00:27 120 MLS/HR Potassium Chloride/Sodium Chloride 1,000 ml @ 80 mls/hr [id number] IV 07/15/17 05:00 08/14/17 04:59 07/18/17 09:56 80 MLS/HR Filgrastim (Neupogen Sq) 480 mcg DAILY SC 07/15/17 13:00 08/14/17 12:59 07/18/17 09:35 480 MCG Pantoprazole Sodium 40 mg/ Syringe 10 ml @ 5 mls/min DAILY@2100 IV 07/15/17 21:00 08/14/17 20:59 07/17/17 20:55 5 MLS/MIN Fluconazole/ Sodium Chloride 100 mg/Prmx 50 ml @ 100 mls/hr QAM IV 07/16/17 09:00 08/15/17 08:59 07/18/17 09:07 100 MLS/HR Folic Acid 1 mg/ Syringe 10 ml @ 5 mls/min DAILY IV 07/16/17 09:00 08/15/17 08:59 07/18/17 09:09 5 MLS/MIN Vancomycin HCl (Consult) 1 ea UD PRN N/A 07/15/17 15:15 08/14/17 15:14 Acyclovir Sodium 500 mg/Dextrose 110 ml @ 100 mls/hr Q12 IV 07/15/17 21:00 08/14/17 20:59 07/18/17 09:56 100 MLS/HR Miscellaneous Information (Consult Glycemic Management Pharmacy) 1 ea UD N/A 07/15/17 16:25 08/14/17 16:24 Vancomycin HCl 1250 mg/Sodium Chloride 275 ml @ 125 mls/hr Q18H IV 07/16/17 10:00 07/25/17 09:59 07/17/17 21:53 125 MLS/HR Nystatin (Mycostatin Susp) 5 ml QID PO 07/17/17 13:00 07/27/17 12:59 07/18/17 09:38 5 ML Insulin Aspart (novoLOG ASPART) SLIDING SCALE G... ACHS SC 07/17/17 22:00 08/16/17 21:59 Enteral Nutritional Formula (Boost Breeze Nutritional Drink) 1 box BIDM PO 07/18/17 16:45 08/17/17 16:44 Objective Vital Signs Date Time Temp Pulse Resp B/P (MAP) Pulse Ox O2 Delivery O2 Flow Rate FiO2 07/18/17 12:00 Room Air 07/18/17 11:43 37.0 98 19 124/74 (91) 92 Room Air 07/18/17 11:30 37.1 73 18 166/96 97 2.0 07/18/17 10:30 36.9 72 18 178/105 97 2.0 07/18/17 10:00 36.5 85 20 183/97 94 2.0 07/18/17 08:00 37.1 82 18 153/79 94 2.0 07/18/17 08:00 Room Air 07/18/17 08:00 Nasal Cannula 2.0 07/18/17 07:00 37.1 81 18 161/86 92 07/18/17 06:32 36.6 88 22 190/87 92 07/18/17 06:12 36.7 95 20 183/97 93 07/18/17 06:03 36.5 82 22 177/83 93 07/18/17 04:09 36.8 87 22 175/88 (117) 92 Room Air 07/18/17 04:00 Room Air 07/18/17 00:00 36.5 73 20 158/83 (108) 94 Room Air 07/18/17 00:00 Room Air 07/17/17 20:00 Room Air 07/17/17 19:18 36.4 81 20 174/87 (116) 94 Room Air 07/17/17 16:00 Room Air 07/17/17 15:56 36.5 85 20 168/69 (102) 93 Room Air Physical Exam General Appearance: no apparent distress, + pertinent finding (chronically ill- appearing.) Eyes: normal inspection, sclerae normal ENT: normal ENT inspection, pharynx normal Neck: supple, thyroid normal, trachea midline Respiratory/Chest: chest non-tender, lungs clear, normal breath sounds, no respiratory distress Cardiovascular: regular rate, rhythm, no gallop, no murmur Abdomen: normal bowel sounds, non tender, soft, no organomegaly Extremities: non-tender, no calf tenderness Neurologic/Psychiatric: alert, oriented x 3 Skin: normal color, no rash Lymphatic: no adenopathy Laboratory Results Last 24 Hours Test 07/17/17 18:16 07/17/17 19:34 07/17/17 20:47 07/17/17 21:34 Bedside Glucose 114 mg/dl 125 mg/dl White Blood Count 0.27 K/uL Red Blood Count 2.70 M/uL Hemoglobin 8.4 g/dL Hematocrit 24.5 % Mean Corpuscular Volume 90.7 fL Mean Corpuscular Hemoglobin 31.1 pg Mean Corpuscular Hemoglobin Concent 34.3 g/dl Platelet Count 11 K/uL Mean Platelet Volume 9.8 fL RDW Standard Deviation 53.5 fL RDW Coefficient of Variation 16.2 % Neutrophils % (Manual) 43.0 % Lymphocytes % (Manual) 47.0 % Monocytes % (Manual) 7.0 % Eosinophils % (Manual) 1.0 % Basophils % (Manual) 2.0 % Neutrophils # (Manual) 0.12 K/uL Total Absolute Neutrophils 0.12 K/uL Lymphocytes # (Manual) 0.13 K/uL Total Absolute Lymphocytes 0.13 K/uL Monocytes # (Manual) 0.02 K/uL Eosinophils # (Manual) 0.00 K/uL Basophils # (Manual) 0.01 K/uL Toxic Granulation 1+ Toxic Vacuolation 1+ Dohle Bodies 1+ Red Blood Cell Morphology Unremarkable Vancomycin Level Trough 15.3 mcg/ml Test 07/18/17 04:03 07/18/17 06:25 07/18/17 11:04 White Blood Count 0.34 K/uL Red Blood Count 2.56 M/uL Hemoglobin 7.7 g/dL Hematocrit 23.3 % Mean Corpuscular Volume 91.0 fL Mean Corpuscular Hemoglobin 30.1 pg Mean Corpuscular Hemoglobin Concent 33.0 g/dl Platelet Count 7 K/uL Mean Platelet Volume 8.2 fL Neutrophils (%) (Auto) 47.0 % Lymphocytes (%) (Auto) 26.5 % Monocytes (%) (Auto) 26.5 % Eosinophils (%) (Auto) 0.0 % Basophils (%) (Auto) 0.0 % Neutrophils # (Auto) 0.16 K/uL Lymphocytes # (Auto) 0.09 K/uL Monocytes # (Auto) 0.09 K/uL Eosinophils # (Auto) 0.00 K/uL Basophils # (Auto) 0.00 K/uL RDW Standard Deviation 53.7 fL RDW Coefficient of Variation 16.0 % Immature Granulocyte % (Auto) 0.0 % Immature Granulocyte # (Auto) 0.00 K/uL Toxic Granulation 1+ Toxic Vacuolation 3+ Dohle Bodies 3+ Sodium Level 145 mmol/L Potassium Level 3.9 mmol/L Chloride Level 113 mmol/L Carbon Dioxide Level 29 mmol/L Anion Gap 3.0 mmol/L Blood Urea Nitrogen 14 mg/dl Creatinine 0.71 mg/dl Est Creatinine Clear Calc Drug Dose 77.9 ml/min Estimated GFR () 96.6 Estimated GFR (Non- 83.3 BUN/Creatinine Ratio 20.4 Random Glucose 95 mg/dl Calcium Level 7.4 mg/dl Bedside Glucose 101 mg/dl 101 mg/dl Assessment and Plan 77-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 Also given indwelling central catheter must rule out central line infection as well. I have added vancomycin to cover gram-positive pathogens and would continue on ertapenem pending final culture results. Will follow.
[2017-07-18] MEDS ORDERED: VANCOMYCIN TROUGH SCH (15:30)
--- NOTE | 2017-07-18 16:42 | Hematology/Oncology Prog Note ---
Hematology/Onc Progress Note Date of Service Jul 18, 2017. Diagnoses High-grade NHL Chemotherapy-induced pancytopenia Fall Medications Medications Administered Medications (Trade) Dose Ordered Sig/[place] Route Start Time Stop Time Status Last Admin Dose Admin Ondansetron HCl (Zofran Inj) 4 mg Q6H PRN IV 07/11/17 03:30 08/10/17 03:29 07/18/17 09:33 4 MG Acetaminophen (Tylenol Tab) 500 mg Q4 PRN PO 07/11/17 05:00 08/10/17 04:59 07/14/17 22:59 500 MG Acyclovir (Zovirax Cap) 200 mg TID PO 07/11/17 08:00 07/15/17 15:11 DC 07/14/17 22:03 200 MG Albuterol (Ventolin Hfa Inhaler) 2 puffs QID INH 07/11/17 08:00 08/10/17 07:59 07/15/17 22:12 2 PUFFS Allopurinol (Zyloprim Tab) 200 mg QPM PO 07/11/17 21:00 08/10/17 20:59 07/17/17 20:54 200 MG Docusate Sodium (coLACE CAP) 100 mg AMHS PO 07/11/17 08:00 08/10/17 07:59 07/15/17 22:11 100 MG Dronabinol (Marinol Cap) 2.5 mg QAM PO 07/11/17 08:00 08/10/17 07:59 07/18/17 09:34 2.5 MG Fentanyl (Duragesic Patch) 25 mcg Q72H TD 07/11/17 06:00 07/25/17 05:59 07/17/17 06:01 25 MCG Fluconazole (Diflucan Tab) 100 mg QAM PO 07/11/17 08:00 07/15/17 14:31 DC 07/15/17 10:03 100 MG Fluticasone Propionate (Flonase Nasal [place]) 2 sprays DAILY VIGNESH 07/11/17 08:00 08/10/17 07:59 07/13/17 08:11 2 SPRAYS Folic Acid (Folvite Tab) 1 mg QAM PO 07/11/17 08:00 07/15/17 14:33 DC 07/15/17 10:03 1 MG Furosemide (Lasix Tab) 20 mg QAM PO 07/11/17 08:00 07/12/17 11:04 DC 07/12/17 08:05 20 MG Heparin Sodium (Porcine) (Heparin 10 Unit/ ml 5 ml Flush) 5 ml DAILY FLUSH 07/11/17 08:00 08/10/17 07:59 07/17/17 09:00 5 ML Acetaminophen/ Hydrocodone Bitart ([place] 5/325 Tab) 1 tab TID PO 07/11/17 08:00 07/25/17 07:59 07/18/17 16:22 1 TAB Acetaminophen/ Hydrocodone Bitart ([place] 5/325 Tab) 1 tab Q4 PRN PO 07/11/17 05:00 07/25/17 04:59 07/18/17 06:28 1 TAB Lidocaine (Lidoderm Patch 5%) 1 patch QAM TD 07/11/17 08:00 08/10/17 07:59 07/18/17 09:39 1 PATCH Losartan Potassium (coZAAR TAB) 100 mg DAILY PO 07/11/17 08:00 08/10/17 07:59 07/18/17 09:39 100 MG Meclizine HCl (Antivert Tab) 25 mg TID PRN PO 07/11/17 05:00 08/10/17 04:59 07/13/17 17:48 25 MG Multivitamins/ Minerals (Multivitamin W/ Minerals Tab) 1 tab DAILY PO 07/11/17 08:00 08/10/17 07:59 07/13/17 08:12 1 TAB Nitrofurantoin Macrocrystals (Macrobid Cap) 100 mg BID PO 07/11/17 08:00 08/10/17 07:59 Future Hold 07/14/17 22:05 100 MG Ondansetron HCl (Zofran Tab) 8 mg BID PO 07/11/17 08:00 07/15/17 14:35 DC 07/14/17 22:03 8 MG Oxybutynin Chloride (Ditropan-Xl Tab) 10 mg QAM PO 07/11/17 08:00 08/10/17 07:59 07/18/17 09:40 10 MG Pantoprazole Sodium (Protonix Tab) 40 mg DAILY PO 07/11/17 08:00 07/15/17 14:03 DC 07/13/17 08:12 40 MG Potassium/ Phosphorus/Sodium (Phospha 250 Neutral 155-852-130 Mg) 1 tab QID PO 07/11/17 08:00 08/10/17 07:59 07/18/17 09:38 1 TAB Potassium Chloride (Klor-Con Tab) 40 meq DAILY PO 07/11/17 08:00 08/10/17 07:59 07/13/17 08:12 40 MEQ Prednisone (PredniSONE TAB) 50 mg DAILY PO 07/11/17 08:00 08/10/17 07:59 Future Hold 07/12/17 08:05 50 MG Sitagliptin Phosphate (Januvia Tab) 100 mg QAM PO 07/11/17 08:00 08/10/17 07:59 Future Hold 07/15/17 10:03 100 MG Sodium Chloride (Sodium Chloride 0.9% 10 ml Flush) 10 ml DAILY IV 07/11/17 08:00 08/10/17 07:59 07/18/17 09:10 10 ML Trimethoprim/ Sulfamethoxazole (Septra Ds 800/ 160MG Tab) 1 tab MoTh@0800 PO 07/11/17 08:00 07/15/17 14:15 DC 07/11/17 10:22 1 TAB Miscellaneous (Fentanyl Patch Remove & Waste) 1 ea Q3D N/A 07/11/17 05:59 08/10/17 05:58 07/17/17 06:02 1 EA Miscellaneous Information (Check Fentanyl Patch Placement) 1 ea QS N/A 07/11/17 08:00 08/10/17 07:59 07/18/17 16:22 1 EA Miscellaneous (Remove Lidoderm Patch) 1 ea DAILY@21 N/A 07/11/17 21:00 08/10/17 20:59 07/17/17 20:55 1 EA Furosemide (Lasix Tab) 20 mg NOW ONCE PO 07/11/17 15:00 07/11/17 15:01 DC 07/11/17 18:05 20 MG Furosemide 20 mg/ Syringe 2 ml @ 4 mls/min TODAY@1800 IV 07/11/17 18:00 07/11/17 20:00 DC 07/11/17 23:30 4 MLS/MIN Furosemide 20 mg/ Syringe 2 ml @ 4 mls/min DAILY IV 07/13/17 08:00 07/13/17 15:38 DC 07/13/17 08:10 4 MLS/MIN Furosemide (Lasix Oral Soln) 20 mg NOW STAT PO 07/12/17 11:25 07/12/17 11:26 DC 07/12/17 12:30 20 MG Insulin Aspart (novoLOG ASPART) SLIDING SCALE G... ACHS SC 07/13/17 06:30 07/15/17 17:06 DC 07/15/17 17:01 4 UNITS Insulin Aspart (novoLOG ASPART) 10 units NOW ONCE SC 07/12/17 21:30 07/12/17 21:32 DC 07/12/17 22:11 10 UNITS Magnesium Hydroxide (Milk Of Magnesia Susp) 30 ml Q6H PRN PO 07/13/17 18:45 08/12/17 18:44 07/13/17 23:59 30 ML Sodium Chloride 1,000 ml @ 75 mls/hr [id number] IV 07/14/17 14:45 07/15/17 06:18 DC 07/14/17 22:01 75 MLS/HR Piperacillin Sod/ Tazobactam Sod 4.5 gm/Dextrose 120 ml @ 200 mls/hr 1800 ONCE IV 07/14/17 18:00 07/14/17 18:35 DC 07/14/17 18:52 200 MLS/HR Morphine Sulfate (MoRPHine SULFATE INJ) 2 mg Q4H PRN IV 07/14/17 18:45 07/28/17 18:44 07/15/17 06:44 2 MG Sodium Chloride 1,000 ml @ 999 mls/hr Q1H1M ONCE IV 07/14/17 19:45 07/14/17 20:45 DC 07/14/17 20:31 999 MLS/HR Ertapenem 1 gm/ Sodium Chloride 50 ml @ 120 mls/hr Q24H IV 07/15/17 00:00 07/25/17 00:00 07/18/17 00:27 120 MLS/HR Sodium Chloride 1,000 ml @ 999 mls/hr Q1H1M ONCE IV 07/14/17 22:15 07/14/17 23:32 DC 07/14/17 22:15 999 MLS/HR Sodium Chloride 1,000 ml @ 100 mls/hr Q10H IV 07/14/17 22:15 07/15/17 06:18 DC 07/14/17 23:15 100 MLS/HR Potassium Chloride/Sodium Chloride 1,000 ml @ 80 mls/hr [id number] IV 07/15/17 05:00 08/14/17 04:59 07/18/17 09:56 80 MLS/HR Filgrastim (Neupogen Sq) 480 mcg DAILY SC 07/15/17 13:00 08/14/17 12:59 07/18/17 09:35 480 MCG Pantoprazole Sodium 40 mg/ Syringe 10 ml @ 5 mls/min DAILY@2100 IV 07/15/17 21:00 08/14/17 20:59 07/17/17 20:55 5 MLS/MIN Fluconazole/ Sodium Chloride 100 mg/Prmx 50 ml @ 100 mls/hr QAM IV 07/16/17 09:00 08/15/17 08:59 07/18/17 09:07 100 MLS/HR Folic Acid 1 mg/ Syringe 10 ml @ 5 mls/min DAILY IV 07/16/17 09:00 08/15/17 08:59 07/18/17 09:09 5 MLS/MIN Acyclovir Sodium 500 mg/Dextrose 110 ml @ 100 mls/hr Q12 IV 07/15/17 21:00 08/14/17 20:59 07/18/17 09:56 100 MLS/HR Vancomycin HCl 2500 mg/Sodium Chloride 550 ml @ 200 mls/hr 07/15/17@1630 ONCE IV 07/15/17 16:30 07/15/17 19:14 DC 07/15/17 16:50 200 MLS/HR Vancomycin HCl 1250 mg/Sodium Chloride 275 ml @ 125 mls/hr Q18H IV 07/16/17 10:00 07/25/17 09:59 07/17/17 21:53 125 MLS/HR Insulin Aspart (novoLOG ASPART) SLIDING SCALE G... Q6 SC 07/15/17 18:00 07/17/17 21:46 DC 07/15/17 23:55 1 UNITS Nystatin (Mycostatin Susp) 5 ml QID PO 07/17/17 13:00 07/27/17 12:59 07/18/17 09:38 5 ML Furosemide (Lasix Inj) 40 mg NOW STAT IV 07/18/17 11:06 07/18/17 11:13 DC 07/18/17 11:50 40 MG Subjective Ms. Perez looks better today. She is sitting up and is more animated and conversant. She remains weak overall, but her energy is up. She remains afebrile. Review of Systems: Constitutional: + weakness, + fatigue, No fever, No chills ENT: No unusual epistaxis Respiratory: No shortness of breath, No hemoptysis Cardiovascular: No chest pain Abdomen: No pain, No nausea, No GI bleeding Female : No dysuria, No hematuria Heme: No abnormal bleeding/bruising Vital Signs Vital Signs Past 12 Hours Date Time Temp Pulse Resp B/P (MAP) Pulse Ox O2 Delivery O2 Flow Rate FiO2 07/18/17 16:28 167/84 (111) 07/18/17 16:16 36.7 91 22 96 2.0 07/18/17 16:00 Room Air 07/18/17 15:41 36.7 91 22 96 Nasal Cannula 2.0 07/18/17 12:00 Room Air 07/18/17 11:43 37.0 98 19 124/74 (91) 92 Room Air 07/18/17 11:30 37.1 73 18 166/96 97 2.0 07/18/17 10:30 36.9 72 18 178/105 97 2.0 07/18/17 10:00 36.5 85 20 183/97 94 2.0 07/18/17 08:00 37.1 82 18 153/79 94 2.0 07/18/17 08:00 Room Air 07/18/17 08:00 Nasal Cannula 2.0 07/18/17 07:00 37.1 81 18 161/86 92 07/18/17 06:32 36.6 88 22 190/87 92 07/18/17 06:12 36.7 95 20 183/97 93 07/18/17 06:03 36.5 82 22 177/83 93 Physical Exam Constitutional: Level of Distress: mild distress, chronically ill Psychiatric: Mental Status: active & alert Orientation: oriented except where noted Head: with evidence of injury (She has an ecchymosis overlying her left forehead, above her eye) Neck: pertinent finding (she has a bruise on her lower right neck, in the area where she fell) Lungs: Respiratory Effort: no dyspnea Auscuitation: breath sounds normal Cardiovascular: Heart Auscultation: RRR Abdomen: Inspection & Palpation: soft, LUQ tenderness (She is diffusely tender in all quadrants, but somewhat moreso L>R. No rebound or guarding) Extremities: edema (1+ pitting edema in bilateral calves) Laboratory Last 24 Hours Test 07/17/17 18:16 07/17/17 19:34 07/17/17 20:47 07/17/17 21:34 Bedside Glucose 114 mg/dl 125 mg/dl White Blood Count 0.27 K/uL Red Blood Count 2.70 M/uL Hemoglobin 8.4 g/dL Hematocrit 24.5 % Mean Corpuscular Volume 90.7 fL Mean Corpuscular Hemoglobin 31.1 pg Mean Corpuscular Hemoglobin Concent 34.3 g/dl Platelet Count 11 K/uL Mean Platelet Volume 9.8 fL RDW Standard Deviation 53.5 fL RDW Coefficient of Variation 16.2 % Neutrophils % (Manual) 43.0 % Lymphocytes % (Manual) 47.0 % Monocytes % (Manual) 7.0 % Eosinophils % (Manual) 1.0 % Basophils % (Manual) 2.0 % Neutrophils # (Manual) 0.12 K/uL Total Absolute Neutrophils 0.12 K/uL Lymphocytes # (Manual) 0.13 K/uL Total Absolute Lymphocytes 0.13 K/uL Monocytes # (Manual) 0.02 K/uL Eosinophils # (Manual) 0.00 K/uL Basophils # (Manual) 0.01 K/uL Toxic Granulation 1+ Toxic Vacuolation 1+ Dohle Bodies 1+ Red Blood Cell Morphology Unremarkable Vancomycin Level Trough 15.3 mcg/ml Test 07/18/17 04:03 07/18/17 06:25 07/18/17 11:04 White Blood Count 0.34 K/uL Red Blood Count 2.56 M/uL Hemoglobin 7.7 g/dL Hematocrit 23.3 % Mean Corpuscular Volume 91.0 fL Mean Corpuscular Hemoglobin 30.1 pg Mean Corpuscular Hemoglobin Concent 33.0 g/dl Platelet Count 7 K/uL Mean Platelet Volume 8.2 fL Neutrophils (%) (Auto) 47.0 % Lymphocytes (%) (Auto) 26.5 % Monocytes (%) (Auto) 26.5 % Eosinophils (%) (Auto) 0.0 % Basophils (%) (Auto) 0.0 % Neutrophils # (Auto) 0.16 K/uL Lymphocytes # (Auto) 0.09 K/uL Monocytes # (Auto) 0.09 K/uL Eosinophils # (Auto) 0.00 K/uL Basophils # (Auto) 0.00 K/uL RDW Standard Deviation 53.7 fL RDW Coefficient of Variation 16.0 % Immature Granulocyte % (Auto) 0.0 % Immature Granulocyte # (Auto) 0.00 K/uL Toxic Granulation 1+ Toxic Vacuolation 3+ Dohle Bodies 3+ Sodium Level 145 mmol/L Potassium Level 3.9 mmol/L Chloride Level 113 mmol/L Carbon Dioxide Level 29 mmol/L Anion Gap 3.0 mmol/L Blood Urea Nitrogen 14 mg/dl Creatinine 0.71 mg/dl Est Creatinine Clear Calc Drug Dose 77.9 ml/min Estimated GFR () 96.6 Estimated GFR (Non- 83.3 BUN/Creatinine Ratio 20.4 Random Glucose 95 mg/dl Calcium Level 7.4 mg/dl Bedside Glucose 101 mg/dl 101 mg/dl Assessment & Plan Ms. Perez has sepsis from a urinary tract infection and possible PNA. She is looking much better today. Her ANC is also rising and should be back to normal in the next few days. She does need a platelet transfusion today and I would continue the neupogen until her ANC is over 1000.
[2017-07-18] MEDS ORDERED: NURSING VERBAL MED ORDER ONE (16:45)
[2017-07-18] MEDS: BOOST BREEZE NUTRITION DRINK 1 BOX PO SCH ×2 (16:50→17:25)
[2017-07-18] MEDS: VANCOMYCIN INJ 1,250 MG in SODIUM CHLORIDE 0.9% 250ML 250 ML IV SCH (16:50)
[2017-07-18] MEDS: ALLOPURINOL 100 MG TAB PO SCH (20:40)
[2017-07-18] MEDS: PANTOprazole INJ 40 MG in SYRINGE 0 ML IV SCH (20:59)
[2017-07-19] VITALS (17 sets, daily range): BP systolic 127–163; BP diastolic 66–90; PULSE 70–89; TEMP 36.4–37; O2SAT 92–98
[2017-07-19 06:49] LABS: CALCIUM 7.4 mg/dl (8.5-10.1); CREATININE 0.72 mg/dl (0.60-1.20); POTASSIUM 3.3 mmol/L (3.5-5.1)
[2017-07-19] MEDS: HYDROCODONE/ACETAMOPHEN 5/325MG TAB PO SCH ×3 (08:00→21:27)
[2017-07-19] MEDS: LIDODERM (LIDOCAINE) PATCH 5% TD SCH ×2 (08:00→08:04)
[2017-07-19] MEDS: FoLIC ACID INJ 1 MG in SYRINGE 9.8 ML IV SCH (08:00)
[2017-07-19] MEDS: CEROVITE ADV FORMULA TAB PO SCH (08:00)
[2017-07-19] MEDS: DOCUSATE SODIUM 100 MG CAP PO SCH ×2 (08:00→21:20)
[2017-07-19] MEDS: ALBUTEROL HFA 8 GM INHALER INH SCH ×4 (08:00→21:17)
[2017-07-19] MEDS: FLUTICASONE PROPIONATE NA SPR 16 GM BTL NAE SCH (08:00)
[2017-07-19] MEDS: BOOST BREEZE NUTRITION DRINK 1 BOX PO SCH ×2 (08:00→17:00)
[2017-07-19] MEDS: DRONABINOL 2.5 MG CAP PO SCH (08:00)
[2017-07-19] MEDS: ACYCLOVIR SOD INJ 500 MG in DEXTROSE 5% 100ML 100 ML IV SCH ×2 (08:01→21:16)
[2017-07-19] MEDS: FILGRASTIM 480 MCG/1.6 ML VIAL SC SCH (08:01)
[2017-07-19] MEDS: OXYBUTYNIN CHLORIDE 5 MG TABCR PO SCH (08:02)
[2017-07-19] MEDS: NYSTATIN SUSP 500,000 U/5 ML UDC PO SCH ×3 (08:03→21:19)
[2017-07-19] MEDS: LOSARTAN POTASSIUM 50 MG TAB PO SCH (08:03)
--- NOTE | 2017-07-19 08:04 | Hematology/Oncology Prog Note ---
Hematology/Onc Progress Note Date of Service Jul 19, 2017. Diagnoses Neutropenic fever. Non-Hodgkin's lymphoma UTI. Pancytopenia Subjective Ramonita is a pleasant 77-year-old patient under the care of Dr. Galindo Vu for non-Hodgkin's lymphoma. She was admitted to hospital once again because of neutropenic fever and subsequent urinary tract infection. She continues broad-spectrum antibiotics. Ramonita's peripheral blood counts have been slow to recover and she received 2 units of single donor platelets yesterday. Fever has improved, however her overall recovery has been slow. Ramonita is moving her bowels and tolerating her diet currently. Vital Signs Vital Signs Past 12 Hours Date Time Temp Pulse Resp B/P (MAP) Pulse Ox O2 Delivery O2 Flow Rate FiO2 07/19/17 07:16 36.5 84 16 163/76 (105) 94 Nasal Cannula 1.0 07/19/17 03:44 36.7 78 18 127/75 (92) 92 Room Air 07/19/17 00:00 Room Air 07/18/17 23:54 36.8 97 20 143/75 (97) 95 Room Air Physical Exam Skin without rash or lesion. HEENT oral mucosa without erythema or ulceration. Neck supple Heart regular rate and rhythm Lungs clear to auscultation bilaterally. Abdomen, soft nontender nondistended. Extremities trace peripheral edema. Neuro grossly intact. Constitutional: Level of Distress: mild distress, chronically ill Psychiatric: Mental Status: active & alert Orientation: oriented except where noted Head: with evidence of injury (She has an ecchymosis overlying her left forehead, above her eye) Neck: pertinent finding (she has a bruise on her lower right neck, in the area where she fell) Lungs: Respiratory Effort: no dyspnea Auscuitation: breath sounds normal Cardiovascular: Heart Auscultation: RRR Abdomen: Inspection & Palpation: soft, LUQ tenderness (She is diffusely tender in all quadrants, but somewhat moreso L>R. No rebound or guarding) Extremities: edema (1+ pitting edema in bilateral calves) Assessment & Plan 1. Neutropenic fever. 2. Non-Hodgkin's lymphoma 3. Urinary tract infection. 4. Pancytopenia. Ramonita is now on hospital day 8 Slowly recovering peripheral blood counts. CBC pending at the time of this dictation. Ramonita received single donor platelet just today and most likely will require transfusion of 2 units packed RBCs today. She is due for chemotherapy I believe 07/28. Dr. Vu will reevaluate her prior to resumption of chemotherapy. Continue medical management as ordered. Review of her cultures particularly blood cultures are negative. Will continue to follow during her hospitalization.
[2017-07-19] MEDS: POTASSIUM CHLORIDE 20 MEQ TABCR PO SCH (08:05)
[2017-07-19] MEDS: POT PHOSPHATE MONOBASIC W/ SOD TAB PO SCH ×4 (08:05→21:18)
[2017-07-19] MEDS: SODIUM CHLORIDE 0.9% 10ML FLUSH IV SCH (08:08)
[2017-07-19] MEDS: CHECK FENTANYL PATCH PLACEMENT SCH ×3 (08:13→23:21)
[2017-07-19] MEDS: ONDANSETRON INJ 2 MG/ML 2 ML VIAL IV PRN (08:16)
[2017-07-19 08:33] LABS: HEMATOCRIT 20.9 % (37-47); MEAN CELL VOLUME 89.3 fL (80-100); MEAN CORPUSCULAR HEMOGLOBIN 31.6 pg (25-34); MEAN CORPUSCULAR HGB CONC 35.4 g/dl (32-36); MEAN PLATELET VOLUME 9.7 fL (7.4-10.4); PLATELET COUNT 19 K/uL (130-400); RED BLOOD COUNT 2.34 M/uL (4.2-5.4); WHITE BLOOD COUNT 0.95 K/uL (4.8-10.8)
[2017-07-19 08:56] LABS: DOHLE BODIES 2+; TOXIC GRANULATION 2+; VACUOLIZATION 1+
[2017-07-19 08:58] LABS: BASO ABS # 0.02 K/uL (0-0.2); BASOPHIL % 1.8 %; COMPLETE YES; LYMPH ABS # 0.17 K/uL (1.2-3.4); LYMPHOCYTE % 18.4 %; META ABS # 0.02 K/uL (0-0); METAMYELOCYTE % 1.8 %; NEUTROPHILS % 65.7 %
[2017-07-19] MEDS ORDERED: VANCOMYCIN TROUGH SCH (09:30)
--- NOTE | 2017-07-19 09:35 | Pharmacy Progress Note ---
Glycemic: Assessment & Plan Date of Service Jul 19, 2017. Assessment & Plan ASSESSMENT * Ms Perez is a 77 y/o F admitted with neutropenic fever from lymphoma treatment * Pt receiving SQ basal bolus insulin regimen for hyperglycemia secondary to baseline DM (outpatient regimen on hold) and infection from neutropenic fever ( on numerous antibiotics). She is on steroids at home (prednisone 50 mg daily) but this is currently held. * Over the past 48 hours patient has received between 0 - 8 units of insulin with BSGs all within goal range or below. * PO intake has been very minimal which has been reflected in insulin needs PLAN * Continue to hold basal insulin * Continue bolus insulin as ordered * Novolog ACHS * Goal range: 110-140 mg/dL * Correction Factor: 20 mg/dL/unit * Carb ratio: 1 unit per 8 grams CHO consumed Pharmacy will continue to monitor patient daily and write orders per [facility] inpatient glycemic control protocol. Thanks. * Please note that the plan above was derived based on current level of insulin resistance and hospital stress. These recommendations are appropriate for inpatient admission only. Plan of care upon discharge will need to be reassessed to avoid potential outpatient hypo/hyperglycemia.
--- NOTE | 2017-07-19 09:50 | Infectious Disease Progress Nt ---
Progress Note Date of Service Jul 19, 2017. Subjective Pt evaluation today including: conversation w/ patient, physical exam, chart review, lab review, review of studies, conversation w/ community resource consultant, review of inpatient medication list Patient offers no new complaints today. Remains afebrile. Tolerating antibiotics. All cultures unremarkable. White count slowly recovering. All Other Systems: Reviewed and Negative Medications Current Inpatient Medications Medications (Trade) Dose Ordered Sig/[place] Route Start Time Stop Time Status Last Admin Dose Admin Zolpidem Tartrate (Ambien Tab) 5 mg HSZ PRN PO 07/11/17 03:30 08/10/17 03:29 Ondansetron HCl (Zofran Inj) 4 mg Q6H PRN IV 07/11/17 03:30 08/10/17 03:29 07/19/17 08:16 4 MG Acetaminophen (Tylenol Tab) 500 mg Q4 PRN PO 07/11/17 05:00 08/10/17 04:59 07/14/17 22:59 500 MG Albuterol (Ventolin Hfa Inhaler) 2 puffs QID INH 07/11/17 08:00 08/10/17 07:59 07/15/17 22:12 2 PUFFS Allopurinol (Zyloprim Tab) 200 mg QPM PO 07/11/17 21:00 08/10/17 20:59 07/18/17 20:40 200 MG Calcium Carbonate (Tums Chew Tab) 500 mg Q4 PRN PO 07/11/17 05:00 08/10/17 04:59 Docusate Sodium (coLACE CAP) 100 mg AMHS PO 07/11/17 08:00 08/10/17 07:59 07/15/17 22:11 100 MG Dronabinol (Marinol Cap) 2.5 mg QAM PO 07/11/17 08:00 08/10/17 07:59 07/19/17 08:00 2.5 MG Fentanyl (Duragesic Patch) 25 mcg Q72H TD 07/11/17 06:00 07/25/17 05:59 07/17/17 06:01 25 MCG Fluticasone Propionate (Flonase Nasal [place]) 2 sprays DAILY VIGNESH 07/11/17 08:00 08/10/17 07:59 07/13/17 08:11 2 SPRAYS Heparin Sodium (Porcine) (Heparin 10 Unit/ ml 5 ml Flush) 5 ml DAILY FLUSH 07/11/17 08:00 08/10/17 07:59 07/19/17 05:46 5 ML Acetaminophen/ Hydrocodone Bitart ([place] 5/325 Tab) 1 tab TID PO 07/11/17 08:00 07/25/17 07:59 07/19/17 08:00 1 TAB Acetaminophen/ Hydrocodone Bitart ([place] 5/325 Tab) 1 tab Q4 PRN PO 07/11/17 05:00 07/25/17 04:59 07/18/17 06:28 1 TAB Lidocaine (Lidoderm Patch 5%) 1 patch QAM TD 07/11/17 08:00 08/10/17 07:59 07/18/17 09:39 1 PATCH Losartan Potassium (coZAAR TAB) 100 mg DAILY PO 07/11/17 08:00 08/10/17 07:59 07/19/17 08:03 100 MG Meclizine HCl (Antivert Tab) 25 mg TID PRN PO 07/11/17 05:00 08/10/17 04:59 07/13/17 17:48 25 MG Multivitamins/ Minerals (Multivitamin W/ Minerals Tab) 1 tab DAILY PO 07/11/17 08:00 08/10/17 07:59 07/13/17 08:12 1 TAB Nitrofurantoin Macrocrystals (Macrobid Cap) 100 mg BID PO 07/11/17 08:00 08/10/17 07:59 Future Hold 07/14/17 22:05 100 MG Ondansetron HCl (Zofran Tab) 4 mg Q6 PRN PO 07/11/17 05:00 08/10/17 04:59 Oxybutynin Chloride (Ditropan-Xl Tab) 10 mg QAM PO 07/11/17 08:00 08/10/17 07:59 07/19/17 08:02 10 MG Potassium/ Phosphorus/Sodium (Phospha 250 Neutral 155-852-130 Mg) 1 tab QID PO 07/11/17 08:00 08/10/17 07:59 07/19/17 08:05 1 TAB Potassium Chloride (Klor-Con Tab) 40 meq DAILY PO 07/11/17 08:00 08/10/17 07:59 07/19/17 08:05 40 MEQ Prednisone (PredniSONE TAB) 50 mg DAILY PO 07/11/17 08:00 08/10/17 07:59 Future Hold 07/12/17 08:05 50 MG Prochlorperazine (Compazine Supp) 25 mg Q6H PRN LA 07/11/17 05:00 08/10/17 04:59 Senna/Docusate Sodium (Senokot S Tab) 1 tab Q24H PRN PO 07/11/17 05:00 08/10/17 04:59 Sitagliptin Phosphate (Januvia Tab) 100 mg QAM PO 07/11/17 08:00 08/10/17 07:59 Future Hold 07/15/17 10:03 100 MG Sodium Chloride (Sodium Chloride 0.9% 10 ml Flush) 10 ml DAILY IV 07/11/17 08:00 08/10/17 07:59 07/19/17 08:08 10 ML Miscellaneous (Fentanyl Patch Remove & Waste) 1 ea Q3D N/A 07/11/17 05:59 08/10/17 05:58 07/17/17 06:02 1 EA Miscellaneous Information (Check Fentanyl Patch Placement) 1 ea QS N/A 07/11/17 08:00 08/10/17 07:59 07/19/17 08:13 1 EA Miscellaneous (Remove Lidoderm Patch) 1 ea DAILY@21 N/A 07/11/17 21:00 08/10/17 20:59 07/18/17 20:41 1 EA Glucose (Glucose 40% Gel) 15-30 GRAMS 15 GRAMS... UD PRN PO 07/12/17 21:45 08/11/17 21:44 Glucose (Glucose Chew Tab) 4-8 Tablets 4 Tabl... UD PRN PO 07/12/17 21:45 08/11/17 21:44 Dextrose (Dextrose 50% 50ML Syringe) 25-50ML OF 50% DW IV FOR... UD PRN IV 07/12/17 21:45 08/11/17 21:44 Glucagon (Glucagon Inj) 1 mg UD PRN SQ 07/12/17 21:45 08/11/17 21:44 Magnesium Hydroxide (Milk Of Magnesia Susp) 30 ml Q6H PRN PO 07/13/17 18:45 08/12/17 18:44 07/13/17 23:59 30 ML Polyethylene (Miralax Powder Packet) 17 gm DAILY PRN PO 07/13/17 18:45 08/12/17 18:44 Morphine Sulfate (MoRPHine SULFATE INJ) 2 mg Q4H PRN IV 07/14/17 18:45 07/28/17 18:44 07/15/17 06:44 2 MG Diphenhydramine HCl (Benadryl Inj) 12.5 mg Q6H PRN IV 07/14/17 20:30 08/13/17 20:29 Ertapenem 1 gm/ Sodium Chloride 50 ml @ 120 mls/hr Q24H IV 07/15/17 00:00 07/25/17 00:00 07/18/17 23:35 120 MLS/HR Filgrastim (Neupogen Sq) 480 mcg DAILY SC 07/15/17 13:00 08/14/17 12:59 07/19/17 08:01 480 MCG Pantoprazole Sodium 40 mg/ Syringe 10 ml @ 5 mls/min DAILY@2100 IV 07/15/17 21:00 08/14/17 20:59 07/18/17 20:59 5 MLS/MIN Fluconazole/ Sodium Chloride 100 mg/Prmx 50 ml @ 100 mls/hr QAM IV 07/16/17 09:00 08/15/17 08:59 07/18/17 09:07 100 MLS/HR Folic Acid 1 mg/ Syringe 10 ml @ 5 mls/min DAILY IV 07/16/17 09:00 08/15/17 08:59 07/18/17 09:09 5 MLS/MIN Vancomycin HCl (Consult) 1 ea UD PRN N/A 07/15/17 15:15 08/14/17 15:14 Acyclovir Sodium 500 mg/Dextrose 110 ml @ 100 mls/hr Q12 IV 07/15/17 21:00 08/14/17 20:59 07/19/17 08:01 100 MLS/HR Miscellaneous Information (Consult Glycemic Management Pharmacy) 1 ea UD N/A 07/15/17 16:25 08/14/17 16:24 Vancomycin HCl 1250 mg/Sodium Chloride 275 ml @ 125 mls/hr Q18H IV 07/16/17 10:00 07/25/17 09:59 07/18/17 16:50 125 MLS/HR Nystatin (Mycostatin Susp) 5 ml QID PO 07/17/17 13:00 07/27/17 12:59 07/19/17 08:03 5 ML Insulin Aspart (novoLOG ASPART) SLIDING SCALE G... ACHS SC 07/17/17 22:00 08/16/17 21:59 07/18/17 18:11 8 UNITS Enteral Nutritional Formula (Boost Breeze Nutritional Drink) 1 box BIDM PO 07/18/17 16:45 08/17/17 16:44 07/18/17 17:25 1 BOX Objective Vital Signs Date Time Temp Pulse Resp B/P (MAP) Pulse Ox O2 Delivery O2 Flow Rate FiO2 07/19/17 07:16 36.5 84 16 163/76 (105) 94 Nasal Cannula 1.0 07/19/17 03:44 36.7 78 18 127/75 (92) 92 Room Air 07/19/17 00:00 Room Air 07/18/17 23:54 36.8 97 20 143/75 (97) 95 Room Air 07/18/17 19:53 36.7 81 20 145/83 (103) 99 Nasal Cannula 1.0 07/18/17 16:57 36.5 77 20 160/73 (102) 98 Nasal Cannula 1.0 07/18/17 16:28 167/84 (111) 07/18/17 16:16 36.7 91 22 96 2.0 07/18/17 16:00 Room Air 07/18/17 15:41 36.7 91 22 96 Nasal Cannula 2.0 07/18/17 12:00 Room Air 07/18/17 11:43 37.0 98 19 124/74 (91) 92 Room Air 07/18/17 11:30 37.1 73 18 166/96 97 2.0 07/18/17 10:30 36.9 72 18 178/105 97 2.0 07/18/17 10:00 36.5 85 20 183/97 94 2.0 Physical Exam General Appearance: WD/WN, no apparent distress Eyes: normal inspection, sclerae normal ENT: normal ENT inspection, pharynx normal Neck: supple, thyroid normal, trachea midline Respiratory/Chest: lungs clear, normal breath sounds, no respiratory distress Cardiovascular: regular rate, rhythm, no gallop, no murmur Abdomen: normal bowel sounds, soft, no organomegaly, + tenderness (Mild) Extremities: non-tender, no calf tenderness Neurologic/Psychiatric: alert, oriented x 3 Skin: normal color, no rash, + pertinent finding (Emiliano on forehead) Lymphatic: no adenopathy Laboratory Results Last 24 Hours Test 07/18/17 11:04 07/18/17 16:50 07/18/17 20:33 07/19/17 05:28 Bedside Glucose 101 mg/dl 134 mg/dl 84 mg/dl Sodium Level 142 mmol/L Potassium Level 3.3 mmol/L Chloride Level 108 mmol/L Carbon Dioxide Level 28 mmol/L Anion Gap 6.0 mmol/L Blood Urea Nitrogen 12 mg/dl Creatinine 0.72 mg/dl Est Creatinine Clear Calc Drug Dose 77.5 ml/min Estimated GFR () 94.9 Estimated GFR (Non- 81.9 BUN/Creatinine Ratio 16.0 Random Glucose 77 mg/dl Calcium Level 7.4 mg/dl Test 07/19/17 07:38 07/19/17 07:50 07/19/17 08:58 Bedside Glucose 94 mg/dl 114 mg/dl White Blood Count 0.95 K/uL Red Blood Count 2.34 M/uL Hemoglobin 7.4 g/dL Hematocrit 20.9 % Mean Corpuscular Volume 89.3 fL Mean Corpuscular Hemoglobin 31.6 pg Mean Corpuscular Hemoglobin Concent 35.4 g/dl Platelet Count 19 K/uL Mean Platelet Volume 9.7 fL RDW Standard Deviation 52.1 fL RDW Coefficient of Variation 16.0 % Neutrophils % (Manual) 65.7 % Lymphocytes % (Manual) 18.4 % Monocytes % (Manual) 12.3 % Basophils % (Manual) 1.8 % Metamyelocytes % 1.8 % Neutrophils # (Manual) 0.62 K/uL Total Absolute Neutrophils 0.62 K/uL Lymphocytes # (Manual) 0.17 K/uL Total Absolute Lymphocytes 0.17 K/uL Monocytes # (Manual) 0.12 K/uL Basophils # (Manual) 0.02 K/uL Metamyelocytes # 0.02 K/uL Toxic Granulation 2+ Toxic Vacuolation 1+ Dohle Bodies 2+ Assessment and Plan 77-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 No evidence of central line infection. White count appears to be slowly recovering , would continue antibiotics for now until white count has improved. Will follow.
[2017-07-19] MEDS: INSULIN ASPART 100 UNITS/ML 3 ML PEN SC SCH ×4 (10:13→21:00)
[2017-07-19] MEDS: FLUCONAZOLE 100MG / NSS IV SCH (10:14)
--- NOTE | 2017-07-19 11:38 | Family Medicine Progress Note ---
Progress Note Date of Service Jul 19, 2017. Subjective Pt evaluation today including: conversation w/ patient, conversation w/ family , physical exam, chart review, lab review, review of studies, conversation w/ organization development consultant Pain: denies PO Intake: adequate No acute events, Pt complains of upset stomach overnight, nausea. She continues to report genralized fatigue weakness Constitutional: + weakness, + fatigue, No fever, No chills Respiratory: No cough, No sputum, No wheezing Abdomen: + nausea, No pain, No vomiting Female : No dysuria, No urinary frequency, No hematuria Endo: + fatigue Skin: No rash, No itch Medications Current Inpatient Medications Medications (Trade) Dose Ordered Sig/[place] Route Start Time Stop Time Status Last Admin Dose Admin Zolpidem Tartrate (Ambien Tab) 5 mg HSZ PRN PO 07/11/17 03:30 08/10/17 03:29 Ondansetron HCl (Zofran Inj) 4 mg Q6H PRN IV 07/11/17 03:30 08/10/17 03:29 07/19/17 08:16 4 MG Acetaminophen (Tylenol Tab) 500 mg Q4 PRN PO 07/11/17 05:00 08/10/17 04:59 07/14/17 22:59 500 MG Albuterol (Ventolin Hfa Inhaler) 2 puffs QID INH 07/11/17 08:00 08/10/17 07:59 07/15/17 22:12 2 PUFFS Allopurinol (Zyloprim Tab) 200 mg QPM PO 07/11/17 21:00 08/10/17 20:59 07/18/17 20:40 200 MG Calcium Carbonate (Tums Chew Tab) 500 mg Q4 PRN PO 07/11/17 05:00 08/10/17 04:59 Docusate Sodium (coLACE CAP) 100 mg AMHS PO 07/11/17 08:00 08/10/17 07:59 07/15/17 22:11 100 MG Dronabinol (Marinol Cap) 2.5 mg QAM PO 07/11/17 08:00 08/10/17 07:59 07/19/17 08:00 2.5 MG Fentanyl (Duragesic Patch) 25 mcg Q72H TD 07/11/17 06:00 07/25/17 05:59 07/17/17 06:01 25 MCG Fluticasone Propionate (Flonase Nasal [place]) 2 sprays DAILY VIGNESH 07/11/17 08:00 08/10/17 07:59 07/13/17 08:11 2 SPRAYS Heparin Sodium (Porcine) (Heparin 10 Unit/ ml 5 ml Flush) 5 ml DAILY FLUSH 07/11/17 08:00 08/10/17 07:59 07/19/17 11:34 5 ML Acetaminophen/ Hydrocodone Bitart ([place] 5/325 Tab) 1 tab TID PO 07/11/17 08:00 07/25/17 07:59 07/19/17 13:55 1 TAB Acetaminophen/ Hydrocodone Bitart ([place] 5/325 Tab) 1 tab Q4 PRN PO 07/11/17 05:00 07/25/17 04:59 07/18/17 06:28 1 TAB Lidocaine (Lidoderm Patch 5%) 1 patch QAM TD 07/11/17 08:00 08/10/17 07:59 07/18/17 09:39 1 PATCH Losartan Potassium (coZAAR TAB) 100 mg DAILY PO 07/11/17 08:00 08/10/17 07:59 07/19/17 08:03 100 MG Meclizine HCl (Antivert Tab) 25 mg TID PRN PO 07/11/17 05:00 08/10/17 04:59 07/13/17 17:48 25 MG Multivitamins/ Minerals (Multivitamin W/ Minerals Tab) 1 tab DAILY PO 07/11/17 08:00 08/10/17 07:59 07/13/17 08:12 1 TAB Nitrofurantoin Macrocrystals (Macrobid Cap) 100 mg BID PO 07/11/17 08:00 08/10/17 07:59 Future Hold 07/14/17 22:05 100 MG Ondansetron HCl (Zofran Tab) 4 mg Q6 PRN PO 07/11/17 05:00 08/10/17 04:59 Oxybutynin Chloride (Ditropan-Xl Tab) 10 mg QAM PO 07/11/17 08:00 08/10/17 07:59 07/19/17 08:02 10 MG Potassium/ Phosphorus/Sodium (Phospha 250 Neutral 155-852-130 Mg) 1 tab QID PO 07/11/17 08:00 08/10/17 07:59 07/19/17 08:05 1 TAB Potassium Chloride (Klor-Con Tab) 40 meq DAILY PO 07/11/17 08:00 08/10/17 07:59 07/19/17 08:05 40 MEQ Prednisone (PredniSONE TAB) 50 mg DAILY PO 07/11/17 08:00 08/10/17 07:59 Future Hold 07/12/17 08:05 50 MG Prochlorperazine (Compazine Supp) 25 mg Q6H PRN MD 07/11/17 05:00 08/10/17 04:59 Senna/Docusate Sodium (Senokot S Tab) 1 tab Q24H PRN PO 07/11/17 05:00 08/10/17 04:59 Sitagliptin Phosphate (Januvia Tab) 100 mg QAM PO 07/11/17 08:00 08/10/17 07:59 Future Hold 07/15/17 10:03 100 MG Sodium Chloride (Sodium Chloride 0.9% 10 ml Flush) 10 ml DAILY IV 07/11/17 08:00 08/10/17 07:59 07/19/17 08:08 10 ML Miscellaneous (Fentanyl Patch Remove & Waste) 1 ea Q3D N/A 07/11/17 05:59 08/10/17 05:58 07/17/17 06:02 1 EA Miscellaneous Information (Check Fentanyl Patch Placement) 1 ea QS N/A 07/11/17 08:00 08/10/17 07:59 07/19/17 08:13 1 EA Miscellaneous (Remove Lidoderm Patch) 1 ea DAILY@21 N/A 07/11/17 21:00 08/10/17 20:59 07/18/17 20:41 1 EA Glucose (Glucose 40% Gel) 15-30 GRAMS 15 GRAMS... UD PRN PO 07/12/17 21:45 08/11/17 21:44 Glucose (Glucose Chew Tab) 4-8 Tablets 4 Tabl... UD PRN PO 07/12/17 21:45 08/11/17 21:44 Dextrose (Dextrose 50% 50ML Syringe) 25-50ML OF 50% DW IV FOR... UD PRN IV 07/12/17 21:45 08/11/17 21:44 Glucagon (Glucagon Inj) 1 mg UD PRN SQ 07/12/17 21:45 08/11/17 21:44 Magnesium Hydroxide (Milk Of Magnesia Susp) 30 ml Q6H PRN PO 07/13/17 18:45 08/12/17 18:44 07/13/17 23:59 30 ML Polyethylene (Miralax Powder Packet) 17 gm DAILY PRN PO 07/13/17 18:45 08/12/17 18:44 Morphine Sulfate (MoRPHine SULFATE INJ) 2 mg Q4H PRN IV 07/14/17 18:45 07/28/17 18:44 07/15/17 06:44 2 MG Diphenhydramine HCl (Benadryl Inj) 12.5 mg Q6H PRN IV 07/14/17 20:30 08/13/17 20:29 Ertapenem 1 gm/ Sodium Chloride 50 ml @ 120 mls/hr Q24H IV 07/15/17 00:00 07/25/17 00:00 07/18/17 23:35 120 MLS/HR Filgrastim (Neupogen Sq) 480 mcg DAILY SC 07/15/17 13:00 08/14/17 12:59 07/19/17 08:01 480 MCG Pantoprazole Sodium 40 mg/ Syringe 10 ml @ 5 mls/min DAILY@2100 IV 07/15/17 21:00 08/14/17 20:59 07/18/17 20:59 5 MLS/MIN Fluconazole/ Sodium Chloride 100 mg/Prmx 50 ml @ 100 mls/hr QAM IV 07/16/17 09:00 08/15/17 08:59 07/19/17 10:14 100 MLS/HR Folic Acid 1 mg/ Syringe 10 ml @ 5 mls/min DAILY IV 07/16/17 09:00 08/15/17 08:59 07/18/17 09:09 5 MLS/MIN Vancomycin HCl (Consult) 1 ea UD PRN N/A 07/15/17 15:15 08/14/17 15:14 Acyclovir Sodium 500 mg/Dextrose 110 ml @ 100 mls/hr Q12 IV 07/15/17 21:00 08/14/17 20:59 07/19/17 08:01 100 MLS/HR Miscellaneous Information (Consult Glycemic Management Pharmacy) 1 ea UD N/A 07/15/17 16:25 08/14/17 16:24 Vancomycin HCl 1250 mg/Sodium Chloride 275 ml @ 125 mls/hr Q18H IV 07/16/17 10:00 07/25/17 09:59 07/19/17 11:40 125 MLS/HR Nystatin (Mycostatin Susp) 5 ml QID PO 07/17/17 13:00 07/27/17 12:59 07/18/17 20:41 5 ML Insulin Aspart (novoLOG ASPART) SLIDING SCALE G... ACHS SC 07/17/17 22:00 08/16/17 21:59 07/19/17 13:53 4 UNITS Enteral Nutritional Formula (Boost Breeze Nutritional Drink) 1 box BIDM PO 07/18/17 16:45 08/17/17 16:44 07/18/17 17:25 1 BOX Objective Vital Signs Date Time Temp Pulse Resp B/P (MAP) Pulse Ox O2 Delivery O2 Flow Rate FiO2 07/19/17 14:15 36.5 70 16 138/81 95 07/19/17 13:57 36.6 79 16 140/80 07/19/17 11:31 36.4 89 16 127/70 (89) 98 Nasal Cannula 0.5 07/19/17 08:00 94 Room Air 07/19/17 07:16 36.5 84 16 163/76 (105) 94 Nasal Cannula 1.0 07/19/17 03:44 36.7 78 18 127/75 (92) 92 Room Air 07/19/17 00:00 Room Air 07/18/17 23:54 36.8 97 20 143/75 (97) 95 Room Air 07/18/17 19:53 36.7 81 20 145/83 (103) 99 Nasal Cannula 1.0 07/18/17 16:57 36.5 77 20 160/73 (102) 98 Nasal Cannula 1.0 07/18/17 16:28 167/84 (111) 07/18/17 16:16 36.7 91 22 96 2.0 07/18/17 16:00 Room Air 07/18/17 15:41 36.7 91 22 96 Nasal Cannula 2.0 Physical Exam Notes: GENERAL: alert, obese NAD EYE EXAM: normal conjunctiva, PERRL and EOM's grossly intact NECK: supple, no nuchal rigidity, no adenopathy, non-tender LUNGS: Clear to auscultation. Normal chest wall mechanics HEART: no murmurs, S1 normal and S2 normal ABDOMEN: abdomen soft, non-tender, normo-active bowel sounds, no masses, no rebound or guarding. UPPER EXTREMITIES: upper extremities are grossly normal. LOWER EXTREMITIES: RLE , chronic venous changes. NEURO EXAM: Normal sensorium, cranial nerves II-XII grossly intact, normal speech Laboratory Results Results Past 24 Hours Test 07/18/17 16:50 07/18/17 20:33 07/19/17 05:28 07/19/17 07:38 Range/Units Bedside Glucose 134 84 94 70-90 mg/dl Sodium Level 142 136-145 mmol/L Potassium Level 3.3 3.5-5.1 mmol/L Chloride Level 108 98-107 mmol/L Carbon Dioxide Level 28 21-32 mmol/L Anion Gap 6.0 3-11 mmol/L Blood Urea Nitrogen 12 7-18 mg/dl Creatinine 0.72 0.60-1.20 mg/dl Est Creatinine Clear Calc Drug Dose 77.5 ml/min Estimated GFR () 94.9 Estimated GFR (Non- 81.9 BUN/Creatinine Ratio 16.0 10-20 Random Glucose 77 70-99 mg/dl Calcium Level 7.4 8.5-10.1 mg/dl Test 07/19/17 07:50 07/19/17 08:58 07/19/17 10:19 07/19/17 11:36 Range/Units White Blood Count 0.95 4.8-10.8 K/uL Red Blood Count 2.34 4.2-5.4 M/uL Hemoglobin 7.4 12.0-16.0 g/dL Hematocrit 20.9 37-47 % Mean Corpuscular Volume 89.3 80-100 fL Mean Corpuscular Hemoglobin 31.6 25-34 pg Mean Corpuscular Hemoglobin Concent 35.4 32-36 g/dl Platelet Count 19 130-400 K/uL Mean Platelet Volume 9.7 7.4-10.4 fL RDW Standard Deviation 52.1 36.4-46.3 fL RDW Coefficient of Variation 16.0 11.5-14.5 % Neutrophils % (Manual) 65.7 % Lymphocytes % (Manual) 18.4 % Monocytes % (Manual) 12.3 % Basophils % (Manual) 1.8 % Metamyelocytes % 1.8 % Neutrophils # (Manual) 0.62 1.4-6.5 K/uL Total Absolute Neutrophils 0.62 1.4-6.5 K/uL Lymphocytes # (Manual) 0.17 1.2-3.4 K/uL Total Absolute Lymphocytes 0.17 1.2-3.4 K/uL Monocytes # (Manual) 0.12 0.11-0.59 K/uL Basophils # (Manual) 0.02 0-0.2 K/uL Metamyelocytes # 0.02 0-0 K/uL Toxic Granulation 2+ Toxic Vacuolation 1+ Dohle Bodies 2+ Bedside Glucose 114 111 70-90 mg/dl Vancomycin Level Trough 16.4 SEE COMMENT mcg/ml Assessment and Plan 77 yo F w/ hx of Lymphoma on chemo managed at [place], hx of multidrug resistant UTI, Rt sided staghorn calculi, HTN, DM, p/w hx of Mechanical fall, found to be pancytopenic with Neutrophil Ct of .2 on arrival, Hb 7.8, Plt 19 on admission likely secondary to chemo. ANC improving on Filgrastim Pancytopenia: likely 2/2 BM suppression in setting of Chemotherapy - Absolute Neutrophil ct improving, Pancytopenia secondary to BMS from chemotherapy for NHL - S/p 3 units PRBC transfusion, 6 units platelet transfusion - WBC count improved, .34-->.95 Hb 7.4 - Continue Filgrastim as recommended by Hem/Onc - Fecal occult blood positive - Monitor CBC, I/O - transfuse if hgb < 7.5, platelets <15 - Give 2 u PRBC's (07/19), F/u CBC Diarrhea - C diff testing negative. Add probiotics. Edema - ? from fluid overload - s/p 40 mg Lasix 07/18 - Monitor I/O Multidrug resistant UTI with right-sided staghorn calculus: - UA: 2+ occult blood , pos.nitrite - Cont. ertapenem and vancomycin - ppx Continue acyclovir and Diflucan Hypoxia - stepped up yo 2L NC from Ra - O2 per protocol Diabetes type 2: - Glucose controlled - Hemoglobin A1c at 6.5 - Continue sitagliptin - ISS Neurogenic bladder: - Cont. oxybutynin Mechanical fall with head injury: - CT head/ neck unremarkable - Continue pain mgmt Lymphoma: - chemotherapy managed at [place] - F/u report from [facility] ONC HTN - BP elevated , correlated with anxiety per nurse -Continue losartan -continue to monitor Back pain: - Continue pain management Vertigo: - Continue meclizine - Fall precautions DVT prophylaxis: SCDs No anticoagulation due to thrombocytopenia Continued [facility] stay due to: multiple IV medications needed Resident Tracking Resident Involvement: Resident Care Provided Care Provided: Adult Hospital Medicine Reviewed: Pt Seen/Exam by Me History having loose stools today Constitutional: denies: fever Respiratory: negative: short of breath Cardiovascular: denies chest pain Gastrointestinal/Abdominal: positive: diarrhea General Appearance: mild distress Respiratory: lungs clear, no respiratory distress Cardiovascular: regular rate, rhythm Gastrointestinal: normal bowel sounds, non tender, soft Assessment/Plan Resident Physician Supervision Note: I was present with Dr. Centeno in bedside. I verified the samson history and physical, reviewed labs and image studies, discussed the case with the resident and agree with the findings and care plan.
[2017-07-19] MEDS: VANCOMYCIN INJ 1,250 MG in SODIUM CHLORIDE 0.9% 250ML 250 ML IV SCH (11:40)
--- NOTE | 2017-07-19 11:44 | Pharmacy Progress Note ---
Pharmacy Abx Dose Short Note Date of Service Jul 19, 2017. Assessment & Plan Assessment * 77 year old female receiving VANCOMYCIN IV - dosing per pharmacy - for treatment of febrile neutropenia, UTI, possible PNX, possible line infxn * She is also receiving Ertapenem + Fluconazole and Acyclovir - dosing per provider * Day # 5 of VANCOMYCIN therapy * She is currently afebrile, neutrophil count now up to 620 today, cultures remain negative, VSS * Renal fxn stable based upon SCr and U.O. Plan Vancomycin * Trough level of 16.4 mcg/mL is therapeutic, drawn at the appropriate time, prior doses given at appropriate times and level is reflective of steady-state * Continue dose of 1250 mg IV every 18 hours * Goal trough level for febrile neutropenia : 15 to 20 mcg/mL * Will repeat trough level in 3-4 days if therapy continues Pharmacy will continue to follow and will adjust dose/frequency as necessary. Thank you.
[2017-07-19] MEDS: PANTOprazole INJ 40 MG in SYRINGE 0 ML IV SCH (21:17)
[2017-07-19] MEDS: ALLOPURINOL 100 MG TAB PO SCH (21:18)
[2017-07-19] MEDS: ERTAPENEM IV 1 GM in SODIUM CHLOR 0.9% AD-VAN 50ML 50 ML IV SCH (23:21)
[2017-07-20] MEDS: VANCOMYCIN INJ 1,250 MG in SODIUM CHLORIDE 0.9% 250ML 250 ML IV SCH (03:47)
[2017-07-20] MEDS: FENTANYL 25 MCG/HR TDSY TD SCH (05:47)
[2017-07-20] MEDS: FENTANYL PATCH REMOVE & WASTE SCH (05:47)
[2017-07-20 07:17] VITALS: BP 162/69; PULSE 84; TEMP 36.7; O2SAT 93
[2017-07-20] MEDS: ALBUTEROL HFA 8 GM INHALER INH SCH ×4 (07:59→20:37)
[2017-07-20] MEDS: CHECK FENTANYL PATCH PLACEMENT SCH ×3 (08:00→23:39)
[2017-07-20] MEDS: BOOST BREEZE NUTRITION DRINK 1 BOX PO SCH ×2 (08:00→17:00)
[2017-07-20] MEDS: LIDODERM (LIDOCAINE) PATCH 5% TD SCH (08:00)
[2017-07-20] MEDS: DOCUSATE SODIUM 100 MG CAP PO SCH ×2 (08:00→20:37)
[2017-07-20] MEDS: FLUTICASONE PROPIONATE NA SPR 16 GM BTL NAE SCH (08:00)
[2017-07-20] MEDS: FLUCONAZOLE 100MG / NSS IV SCH (08:01)
[2017-07-20] MEDS: FoLIC ACID INJ 1 MG in SYRINGE 9.8 ML IV SCH (08:01)
[2017-07-20] MEDS: SODIUM CHLORIDE 0.9% 10ML FLUSH IV SCH (08:02)
[2017-07-20] MEDS: LOSARTAN POTASSIUM 50 MG TAB PO SCH (08:02)
[2017-07-20] MEDS: OXYBUTYNIN CHLORIDE 5 MG TABCR PO SCH (08:02)
[2017-07-20] MEDS: DRONABINOL 2.5 MG CAP PO SCH (08:03)
[2017-07-20] MEDS: CEROVITE ADV FORMULA TAB PO SCH (08:03)
[2017-07-20] MEDS: POTASSIUM CHLORIDE 20 MEQ TABCR PO SCH (08:03)
[2017-07-20] MEDS: NYSTATIN SUSP 500,000 U/5 ML UDC PO SCH ×4 (08:03→20:38)
[2017-07-20] MEDS: HYDROCODONE/ACETAMOPHEN 5/325MG TAB PO SCH ×3 (08:03→20:41)
[2017-07-20] MEDS: FILGRASTIM 480 MCG/1.6 ML VIAL SC SCH (08:04)
[2017-07-20] MEDS: POT PHOSPHATE MONOBASIC W/ SOD TAB PO SCH ×4 (08:04→20:38)
[2017-07-20 08:16] LABS: HEMATOCRIT 28.9 % (37-47); MEAN CELL VOLUME 88.4 fL (80-100); MEAN CORPUSCULAR HGB CONC 33.9 g/dl (32-36); MEAN PLATELET VOLUME 11.5 fL (7.4-10.4); PLATELET COUNT 14 K/uL (130-400); RED BLOOD COUNT 3.27 M/uL (4.2-5.4); WHITE BLOOD COUNT 2.72 K/uL (4.8-10.8)
[2017-07-20 08:26] LABS: BUN/CREATININE RATIO 14.7 (10-20); CALCIUM 7.2 mg/dl (8.5-10.1); CREATININE 0.64 mg/dl (0.60-1.20); POTASSIUM 3.2 mmol/L (3.5-5.1)
[2017-07-20 08:28] LABS: ALB/GLOB RATIO 0.8 (0.9-2)
[2017-07-20 08:41] LABS: BASO ABS # 0.02 K/uL (0-0.2); BASOPHIL % 0.9 %; COMPLETE YES; DOHLE BODIES 2+; LYMPH ABS # 0.12 K/uL (1.2-3.4); LYMPHOCYTE % 4.5 %; META ABS # 0.07 K/uL (0-0); METAMYELOCYTE % 2.7 %; MYELOCYTE % 1.8 %; NEUTROPHILS % 84.7 %; PLT ESTIMATE SIGNIFIC DECREASED; TOXIC GRANULATION 2+; VACUOLIZATION 1+
[2017-07-20] MEDS: ACYCLOVIR SOD INJ 500 MG in DEXTROSE 5% 100ML 100 ML IV SCH (08:58)
--- NOTE | 2017-07-20 09:02 | Hematology/Oncology Prog Note ---
Hematology/Onc Progress Note Date of Service Jul 20, 2017. Diagnoses Neutropenic fever. Non-Hodgkin's lymphoma UTI. Pancytopenia Subjective Ramonita is a pleasant 77-year-old patient under the care of Dr. Galindo Vu for non-Hodgkin's lymphoma. She was admitted to hospital once again because of neutropenic fever and subsequent urinary tract infection. Clinically, Ramonita making slow improvement. Tolerating diet, moving her bowels. Peripheral blood counts reveals she is no longer neutropenic range and therefore precautions can be discontinued. Platelets remain low at 14,000 however would hold off on transfusion. More concerning is her lack of activity and would like physical therapy to increase mobility. Nursing reports no overnight difficulties. She has been afebrile. Vital Signs Vital Signs Past 12 Hours Date Time Temp Pulse Resp B/P (MAP) Pulse Ox O2 Delivery O2 Flow Rate FiO2 07/20/17 07:17 36.7 84 16 162/69 (100) 93 Room Air 07/20/17 00:00 Room Air 07/19/17 23:45 36.8 82 20 163/83 (109) 95 Room Air Physical Exam In general, 77-year-old female in no acute distress. Skin no petechiae or rash otherwise. HEENT oral mucosa without erythema or ulceration Neck supple. Heart regular rate and rhythm no murmurs Lungs clear to auscultation. Abdomen soft nontender nondistended Extremities no clubbing cyanosis or edema. Neuro exam grossly intact. Constitutional: Level of Distress: mild distress, chronically ill Psychiatric: Mental Status: active & alert Orientation: oriented except where noted Head: with evidence of injury (She has an ecchymosis overlying her left forehead, above her eye) Neck: pertinent finding (she has a bruise on her lower right neck, in the area where she fell) Lungs: Respiratory Effort: no dyspnea Auscuitation: breath sounds normal Cardiovascular: Heart Auscultation: RRR Abdomen: Inspection & Palpation: soft, LUQ tenderness (She is diffusely tender in all quadrants, but somewhat moreso L>R. No rebound or guarding) Extremities: edema (1+ pitting edema in bilateral calves) Assessment & Plan 1. Neutropenic fever. 2. Non-Hodgkin's lymphoma 3. Urinary tract infection. 4. Pancytopenia. Ramonita is now on hospital day 9 Slowly recovering peripheral blood counts. Neutropenic precautions can be discontinued and Neupogen placed on hold. Despite platelets being 14,000 would hold off another 24 hours before transfusion I believe she is recovering on her own. Hold Neupogen at this point. She is due for chemotherapy I believe 07/28. Dr. Vu will reevaluate her prior to resumption of chemotherapy. Continue medical management as ordered. Review of her cultures particularly blood cultures are negative. Will continue to follow during her hospitalization.
[2017-07-20] MEDS: ONDANSETRON INJ 2 MG/ML 2 ML VIAL IV PRN (09:22)
[2017-07-20] MEDS: INSULIN ASPART 100 UNITS/ML 3 ML PEN SC SCH ×4 (09:25→20:42)
--- NOTE | 2017-07-20 10:15 | Pharmacy Progress Note ---
Pharmacy Glycemic Sign Off Nt Date of Service Jul 20, 2017. Assessment & Plan ASSESSMENT: * Pharmacy was consulted by Dr Gupta on 07/15/17 for glycemic control and to write orders per [facility] inpatient glycemic control protocol. * Patient has been receiving/requiring 0 units of insulin per day for adequate glycemic control * BSGs ranging ~90s - low 100s * Regimen has required no adjustments over the past 72 hours PLAN FOR INPATIENT GLYCEMIC CONTROL: No changes needed to current regimen. * Continue NovoLog per scale ACHS/Q6hrs while NPO * Goal range = 110 - 140 mg/dl * CF = 30 mg/dl/unit * CR = 1 unit for ever 10 g CHO consumed * A1c added to discharge instructions to be communicated to PCP. * Pharmacy is signing off of glycemic consult and will no longer be making adjustments to inpatient regimen. Please feel free to re-consult if needed. Thank you.
[2017-07-20 11:19] VITALS: BP 127/74; PULSE 93; O2SAT 95
--- NOTE | 2017-07-20 11:54 | Family Medicine Progress Note ---
Progress Note Date of Service Jul 20, 2017. Subjective Pt evaluation today including: conversation w/ patient, physical exam, chart review, lab review, review of studies, review of inpatient medication list Pain: denies PO Intake: adequate Voiding: no voiding problems No acute events overnight, Pt feels better in general. Still has generalized fatigue. She is tolerating diet. She denies pain, N/V, CP, SOB, calf tenderness Constitutional: + fatigue, No fever, No chills Respiratory: No cough, No sputum, No shortness of breath Cardiovascular: + edema, No chest pain, No palpitations Abdomen: No pain, No nausea, No vomiting Female : No dysuria, No urinary frequency Endo: + fatigue Skin: No rash, No itch Medications Current Inpatient Medications Medications (Trade) Dose Ordered Sig/[place] Route Start Time Stop Time Status Last Admin Dose Admin Zolpidem Tartrate (Ambien Tab) 5 mg HSZ PRN PO 07/11/17 03:30 08/10/17 03:29 Ondansetron HCl (Zofran Inj) 4 mg Q6H PRN IV 07/11/17 03:30 08/10/17 03:29 07/20/17 09:22 4 MG Acetaminophen (Tylenol Tab) 500 mg Q4 PRN PO 07/11/17 05:00 08/10/17 04:59 07/14/17 22:59 500 MG Albuterol (Ventolin Hfa Inhaler) 2 puffs QID INH 07/11/17 08:00 08/10/17 07:59 07/15/17 22:12 2 PUFFS Allopurinol (Zyloprim Tab) 200 mg QPM PO 07/11/17 21:00 08/10/17 20:59 07/19/17 21:18 200 MG Calcium Carbonate (Tums Chew Tab) 500 mg Q4 PRN PO 07/11/17 05:00 08/10/17 04:59 Docusate Sodium (coLACE CAP) 100 mg AMHS PO 07/11/17 08:00 08/10/17 07:59 07/15/17 22:11 100 MG Dronabinol (Marinol Cap) 2.5 mg QAM PO 07/11/17 08:00 08/10/17 07:59 07/20/17 08:03 2.5 MG Fentanyl (Duragesic Patch) 25 mcg Q72H TD 07/11/17 06:00 07/25/17 05:59 07/20/17 05:47 25 MCG Fluticasone Propionate (Flonase Nasal [place]) 2 sprays DAILY VIGNESH 07/11/17 08:00 08/10/17 07:59 07/13/17 08:11 2 SPRAYS Heparin Sodium (Porcine) (Heparin 10 Unit/ ml 5 ml Flush) 5 ml DAILY FLUSH 07/11/17 08:00 08/10/17 07:59 07/20/17 07:46 5 ML Acetaminophen/ Hydrocodone Bitart ([place] 5/325 Tab) 1 tab TID PO 07/11/17 08:00 07/25/17 07:59 07/20/17 08:03 1 TAB Acetaminophen/ Hydrocodone Bitart ([place] 5/325 Tab) 1 tab Q4 PRN PO 07/11/17 05:00 07/25/17 04:59 07/18/17 06:28 1 TAB Lidocaine (Lidoderm Patch 5%) 1 patch QAM TD 07/11/17 08:00 08/10/17 07:59 07/18/17 09:39 1 PATCH Losartan Potassium (coZAAR TAB) 100 mg DAILY PO 07/11/17 08:00 08/10/17 07:59 07/20/17 08:02 100 MG Meclizine HCl (Antivert Tab) 25 mg TID PRN PO 07/11/17 05:00 08/10/17 04:59 07/13/17 17:48 25 MG Multivitamins/ Minerals (Multivitamin W/ Minerals Tab) 1 tab DAILY PO 07/11/17 08:00 08/10/17 07:59 07/20/17 08:03 1 TAB Nitrofurantoin Macrocrystals (Macrobid Cap) 100 mg BID PO 07/11/17 08:00 08/10/17 07:59 Future Hold 07/14/17 22:05 100 MG Ondansetron HCl (Zofran Tab) 4 mg Q6 PRN PO 07/11/17 05:00 08/10/17 04:59 Oxybutynin Chloride (Ditropan-Xl Tab) 10 mg QAM PO 07/11/17 08:00 08/10/17 07:59 07/20/17 08:02 10 MG Potassium/ Phosphorus/Sodium (Phospha 250 Neutral 155-852-130 Mg) 1 tab QID PO 07/11/17 08:00 08/10/17 07:59 07/20/17 17:26 1 TAB Potassium Chloride (Klor-Con Tab) 40 meq DAILY PO 07/11/17 08:00 08/10/17 07:59 07/20/17 08:03 40 MEQ Prednisone (PredniSONE TAB) 50 mg DAILY PO 07/11/17 08:00 08/10/17 07:59 Future Hold 07/12/17 08:05 50 MG Prochlorperazine (Compazine Supp) 25 mg Q6H PRN CA 07/11/17 05:00 08/10/17 04:59 Senna/Docusate Sodium (Senokot S Tab) 1 tab Q24H PRN PO 07/11/17 05:00 08/10/17 04:59 Sitagliptin Phosphate (Januvia Tab) 100 mg QAM PO 07/11/17 08:00 08/10/17 07:59 Future Hold 07/15/17 10:03 100 MG Sodium Chloride (Sodium Chloride 0.9% 10 ml Flush) 10 ml DAILY IV 07/11/17 08:00 08/10/17 07:59 07/20/17 08:02 10 ML Miscellaneous (Fentanyl Patch Remove & Waste) 1 ea Q3D N/A 07/11/17 05:59 08/10/17 05:58 07/20/17 05:47 1 EA Miscellaneous Information (Check Fentanyl Patch Placement) 1 ea QS N/A 07/11/17 08:00 08/10/17 07:59 07/20/17 16:00 1 EA Miscellaneous (Remove Lidoderm Patch) 1 ea DAILY@21 N/A 07/11/17 21:00 08/10/17 20:59 07/18/17 20:41 1 EA Glucose (Glucose 40% Gel) 15-30 GRAMS 15 GRAMS... UD PRN PO 07/12/17 21:45 08/11/17 21:44 Glucose (Glucose Chew Tab) 4-8 Tablets 4 Tabl... UD PRN PO 07/12/17 21:45 08/11/17 21:44 Dextrose (Dextrose 50% 50ML Syringe) 25-50ML OF 50% DW IV FOR... UD PRN IV 07/12/17 21:45 08/11/17 21:44 Glucagon (Glucagon Inj) 1 mg UD PRN SQ 07/12/17 21:45 08/11/17 21:44 Magnesium Hydroxide (Milk Of Magnesia Susp) 30 ml Q6H PRN PO 07/13/17 18:45 08/12/17 18:44 07/13/17 23:59 30 ML Polyethylene (Miralax Powder Packet) 17 gm DAILY PRN PO 07/13/17 18:45 08/12/17 18:44 Morphine Sulfate (MoRPHine SULFATE INJ) 2 mg Q4H PRN IV 07/14/17 18:45 07/28/17 18:44 07/15/17 06:44 2 MG Diphenhydramine HCl (Benadryl Inj) 12.5 mg Q6H PRN IV 07/14/17 20:30 08/13/17 20:29 Filgrastim (Neupogen Sq) 480 mcg DAILY SC 07/15/17 13:00 08/14/17 12:59 Future Hold 07/20/17 08:04 480 MCG Pantoprazole Sodium 40 mg/ Syringe 10 ml @ 5 mls/min DAILY@2100 IV 07/15/17 21:00 08/14/17 20:59 07/19/17 21:17 5 MLS/MIN Folic Acid 1 mg/ Syringe 10 ml @ 5 mls/min DAILY IV 07/16/17 09:00 08/15/17 08:59 07/20/17 08:01 5 MLS/MIN Nystatin (Mycostatin Susp) 5 ml QID PO 07/17/17 13:00 07/27/17 12:59 07/20/17 08:03 5 ML Insulin Aspart (novoLOG ASPART) SLIDING SCALE G... ACHS SC 07/17/17 22:00 08/16/17 21:59 07/20/17 17:31 1 UNITS Enteral Nutritional Formula (Boost Breeze Nutritional Drink) 1 box BIDM PO 07/18/17 16:45 08/17/17 16:44 07/18/17 17:25 1 BOX Objective Vital Signs Date Time Temp Pulse Resp B/P (MAP) Pulse Ox O2 Delivery O2 Flow Rate FiO2 07/20/17 19:32 36.6 94 20 174/77 (109) 95 Room Air 07/20/17 16:00 95 Room Air 07/20/17 15:30 36.3 82 20 147/80 (102) 95 Room Air 07/20/17 11:19 93 16 127/74 (91) 95 Room Air 07/20/17 10:37 Room Air 07/20/17 07:17 36.7 84 16 162/69 (100) 93 Room Air 07/20/17 00:00 Room Air 07/19/17 23:45 36.8 82 20 163/83 (109) 95 Room Air Physical Exam Notes: GENERAL: alert, obese , NAD EYE EXAM: normal conjunctiva, PERRL and EOM's grossly intact NECK: supple, no nuchal rigidity, no adenopathy, non-tender LUNGS: Clear to auscultation. Normal chest wall mechanics HEART: no murmurs, S1 normal and S2 normal ABDOMEN: abdomen soft, non-tender, normo-active bowel sounds, no masses, no rebound or guarding. UPPER EXTREMITIES: upper extremities are grossly normal. LOWER EXTREMITIES: 2 + LE edema Clif . NEURO EXAM: AOx3, cranial nerves II-XII grossly intact, normal speech Laboratory Results Results Past 24 Hours Test 07/20/17 07:40 07/20/17 07:42 07/20/17 11:29 07/20/17 16:35 Range/Units Bedside Glucose 90 116 127 70-90 mg/dl White Blood Count 2.72 4.8-10.8 K/uL Red Blood Count 3.27 4.2-5.4 M/uL Hemoglobin 9.8 12.0-16.0 g/dL Hematocrit 28.9 37-47 % Mean Corpuscular Volume 88.4 80-100 fL Mean Corpuscular Hemoglobin 30.0 25-34 pg Mean Corpuscular Hemoglobin Concent 33.9 32-36 g/dl Platelet Count 14 130-400 K/uL Mean Platelet Volume 11.5 7.4-10.4 fL RDW Standard Deviation 51.5 36.4-46.3 fL RDW Coefficient of Variation 16.1 11.5-14.5 % Neutrophils % (Manual) 84.7 % Lymphocytes % (Manual) 4.5 % Monocytes % (Manual) 5.4 % Basophils % (Manual) 0.9 % Metamyelocytes % 2.7 % Myelocytes % 1.8 % Neutrophils # (Manual) 2.30 1.4-6.5 K/uL Total Absolute Neutrophils 2.30 1.4-6.5 K/uL Lymphocytes # (Manual) 0.12 1.2-3.4 K/uL Total Absolute Lymphocytes 0.12 1.2-3.4 K/uL Monocytes # (Manual) 0.15 0.11-0.59 K/uL Basophils # (Manual) 0.02 0-0.2 K/uL Metamyelocytes # 0.07 0-0 K/uL Myelocytes # 0.05 0-0 K/uL Toxic Granulation 2+ Toxic Vacuolation 1+ Dohle Bodies 2+ Platelet Estimate SIGNIFIC DECREASED Sodium Level 144 136-145 mmol/L Potassium Level 3.2 3.5-5.1 mmol/L Chloride Level 109 98-107 mmol/L Carbon Dioxide Level 28 21-32 mmol/L Anion Gap 7.0 3-11 mmol/L Blood Urea Nitrogen 9 7-18 mg/dl Creatinine 0.64 0.60-1.20 mg/dl Est Creatinine Clear Calc Drug Dose 87.2 ml/min Estimated GFR () 101.2 Estimated GFR (Non- 87.3 BUN/Creatinine Ratio 14.7 10-20 Random Glucose 80 70-99 mg/dl Calcium Level 7.2 8.5-10.1 mg/dl Total Bilirubin 0.6 0.2-1 mg/dl Aspartate Amino Transf (AST/SGOT) 9 15-37 U/L Alanine Aminotransferase (ALT/SGPT) 15 12-78 U/L Alkaline Phosphatase 95 45-117 U/L Total Protein 4.2 6.4-8.2 gm/dl Albumin 1.9 3.4-5.0 gm/dl Globulin 2.3 2.5-4.0 gm/dl Albumin/Globulin Ratio 0.8 0.9-2 Assessment and Plan 77 yo F w/ hx of Lymphoma on chemo managed at [facility], hx of multidrug resistant UTI, Rt sided staghorn calculi, HTN, DM, p/w hx of Mechanical fall, found to be pancytopenic with Neutrophil Ct of .2 on arrival, Hb 7.8, Plt 19 on admission likely secondary to chemo. ANC improved on Filgrastim Pancytopenia: likely 2/2 BM suppression in setting of Chemotherapy - Absolute Neutrophil ct improved - S/p 3 units PRBC transfusion, 6 units platelet transfusion - WBC count improved, .34-->.95 -->2.72 Hb 7.4 -->9.8 -D/c Neupogen per Dr. Urbina - Fecal occult blood positive - Monitor CBC, I/O - transfuse if hgb < 7.5, platelets <[address] Tyson - Diarrhea - C diff testing negative. Add probiotics. LE Edema - ? from fluid overload - s/p 40 mg Lasix 07/18 - Give 40 mfg Lasix today - Monitor I/O Multidrug resistant UTI with right-sided staghorn calculus: - UA: 2+ occult blood , pos.nitrite - Greater than 3 organisms. - On. ertapenem and vancomycin - will deescalate abx - ppx Continue acyclovir and Diflucan Hypoxia - resolved, saturating well on rm air Diabetes type 2: - Glucose controlled - Hemoglobin A1c at 6.5 - Continue sitagliptin - ISS Neurogenic bladder: - Cont. oxybutynin Mechanical fall with head injury: - CT head/ neck unremarkable - Continue pain mgmt Lymphoma: - chemotherapy managed at [facility] - F/u report from [facility] ONC HTN - BP elevated , correlated with anxiety per nurse -Continue losartan -continue to monitor Back pain: - Continue pain management Vertigo: - Continue meclizine - Fall precautions DVT prophylaxis: SCDs No anticoagulation due to thrombocytopenia Continued [facility] stay due to: multiple IV medications needed Discharge planning: uncertain Resident Tracking Resident Involvement: Resident Care Provided Care Provided: Adult Hospital Medicine Reviewed: Pt Seen/Exam by Me History feeling very sleepy had only 2 bowel movements by noon time Constitutional: denies: fever Respiratory: negative: short of breath Cardiovascular: denies chest pain General Appearance: no apparent distress Respiratory: lungs clear, no respiratory distress Cardiovascular: regular rate, rhythm Neurologic/Psychiatric: alert, oriented x 3 Skin Characteristics: warm/dry Assessment/Plan Resident Physician Supervision Note: I was present with Dr. Centeno in bedside. I verified the samson history and physical, reviewed labs and image studies, discussed the case with the resident and agree with the findings and care plan.
[2017-07-20] MEDS ORDERED: FUROSEMIDE 40 MG/4 ML VIAL IV STA (14:18)
[2017-07-20] MEDS ORDERED: FUROSEMIDE INJ 40 MG in SYRINGE 0 ML IV ONE (14:30)
[2017-07-20] MEDS ORDERED: POTASSIUM CHLORIDE 20 MEQ TABCR PO ONE (14:30)
[2017-07-20 15:30] VITALS: BP 147/80; PULSE 82; TEMP 36.3; O2SAT 95
[2017-07-20 16:00] VITALS: O2SAT 95
[2017-07-20 19:32] VITALS: BP 174/77; PULSE 94; TEMP 36.6; O2SAT 95
[2017-07-20] MEDS: PANTOprazole INJ 40 MG in SYRINGE 0 ML IV SCH (20:39)
[2017-07-20] MEDS: ALLOPURINOL 100 MG TAB PO SCH (20:40)
[2017-07-20 23:15] VITALS: BP 183/80; PULSE 93; TEMP 36.6; O2SAT 95
[2017-07-21] VITALS (7 sets, daily range): BP systolic 115–172; BP diastolic 68–84; PULSE 73–89; TEMP 36.3–36.7; O2SAT 94–96
[2017-07-21] MEDS ORDERED: HydrALAZINE HCL 20 MG/ML VIAL IV. STA (01:04)
[2017-07-21] MEDS: FLUTICASONE PROPIONATE NA SPR 16 GM BTL NAE SCH (08:00)
[2017-07-21] MEDS: BOOST BREEZE NUTRITION DRINK 1 BOX PO SCH ×2 (08:00→17:00)
[2017-07-21] MEDS: NYSTATIN SUSP 500,000 U/5 ML UDC PO SCH ×5 (08:00→20:31)
[2017-07-21] MEDS: ALBUTEROL HFA 8 GM INHALER INH SCH ×4 (08:00→20:31)
[2017-07-21] MEDS: LIDODERM (LIDOCAINE) PATCH 5% TD SCH (08:00)
[2017-07-21] MEDS: DOCUSATE SODIUM 100 MG CAP PO SCH ×2 (08:00→20:31)
[2017-07-21] MEDS: CHECK FENTANYL PATCH PLACEMENT SCH ×2 (08:10→17:47)
[2017-07-21] MEDS: SODIUM CHLORIDE 0.9% 10ML FLUSH IV SCH (08:13)
[2017-07-21] MEDS: FoLIC ACID INJ 1 MG in SYRINGE 9.8 ML IV SCH (08:13)
[2017-07-21] MEDS: CEROVITE ADV FORMULA TAB PO SCH (08:14)
[2017-07-21] MEDS: LOSARTAN POTASSIUM 50 MG TAB PO SCH (08:14)
[2017-07-21] MEDS: DRONABINOL 2.5 MG CAP PO SCH (08:14)
[2017-07-21] MEDS: OXYBUTYNIN CHLORIDE 5 MG TABCR PO SCH (08:14)
[2017-07-21] MEDS: HYDROCODONE/ACETAMOPHEN 5/325MG TAB PO SCH ×2 (08:15→12:44)
[2017-07-21] MEDS: POT PHOSPHATE MONOBASIC W/ SOD TAB PO SCH ×4 (08:15→20:35)
[2017-07-21] MEDS: POTASSIUM CHLORIDE 20 MEQ TABCR PO SCH (08:16)
[2017-07-21] MEDS: ONDANSETRON INJ 2 MG/ML 2 ML VIAL IV PRN ×2 (08:16→17:12)
--- NOTE | 2017-07-21 08:32 | Hematology/Oncology Prog Note ---
Hematology/Onc Progress Note Date of Service Jul 21, 2017. Diagnoses Neutropenic fever. Non-Hodgkin's lymphoma UTI. Pancytopenia Subjective Ramonita is a pleasant 77-year-old patient under the care of Dr. Galindo Vu for non-Hodgkin's lymphoma. She was admitted to hospital once again because of neutropenic fever and subsequent urinary tract infection. Again, making slow progress I suspect Ramonita will need to go to a stepdown unit. Nursing reports no overnight issues. Peripheral blood counts pending at time of dictation. Vital Signs Vital Signs Past 12 Hours Date Time Temp Pulse Resp B/P (MAP) Pulse Ox O2 Delivery O2 Flow Rate FiO2 07/21/17 07:29 36.6 73 16 152/76 (101) 94 Room Air 07/21/17 03:12 73 148/83 (104) 07/21/17 00:58 86 172/79 (110) 07/21/17 00:00 Room Air 07/20/17 23:15 36.6 93 18 183/80 (114) 95 Room Air Physical Exam Gen. 77-year-old female patient in no acute distress. Skin. No petechiae or rash. HEENT oral mucosa without erythema or ulceration. Heart. Regular rate and rhythm Lungs. Clear to auscultation Abdomen. Obese soft active bowel sounds nontender. Extremities. Bilateral trace peripheral edema. Neuro. Grossly intact Constitutional: Level of Distress: mild distress, chronically ill Psychiatric: Mental Status: active & alert Orientation: oriented except where noted Head: with evidence of injury (She has an ecchymosis overlying her left forehead, above her eye) Neck: pertinent finding (she has a bruise on her lower right neck, in the area where she fell) Lungs: Respiratory Effort: no dyspnea Auscuitation: breath sounds normal Cardiovascular: Heart Auscultation: RRR Abdomen: Inspection & Palpation: soft, LUQ tenderness (She is diffusely tender in all quadrants, but somewhat moreso L>R. No rebound or guarding) Extremities: edema (1+ pitting edema in bilateral calves) Assessment & Plan 1. Neutropenic fever. 2. Non-Hodgkin's lymphoma 3. Urinary tract infection. 4. Pancytopenia. Ramonita is now on hospital day 10 Slowly recovering peripheral blood counts CBC pending at the time of this dictation. Hold off on further transfusional support unless platelets fall below 10,000 or bleeding ensues. If clinically feasible convert antibiotics to oral. Will leave further treatment for her lymphoma to the discretion of Dr. Ellen Davila. Will officially sign off. Please contact us if there are any further questions or concerns.
[2017-07-21 08:47] LABS: HEMATOCRIT 30.3 % (37-47); MEAN CELL VOLUME 88.9 fL (80-100); MEAN CORPUSCULAR HEMOGLOBIN 29.3 pg (25-34); MEAN PLATELET VOLUME 11.9 fL (7.4-10.4); PLATELET COUNT 16 K/uL (130-400); RED BLOOD COUNT 3.41 M/uL (4.2-5.4); WHITE BLOOD COUNT 6.42 K/uL (4.8-10.8)
[2017-07-21 08:53] LABS: BUN/CREATININE RATIO 11.9 (10-20); CALCIUM 7.6 mg/dl (8.5-10.1); CREATININE 0.68 mg/dl (0.60-1.20); POTASSIUM 3.3 mmol/L (3.5-5.1)
[2017-07-21] MEDS: INSULIN ASPART 100 UNITS/ML 3 ML PEN SC SCH ×4 (09:00→20:31)
[2017-07-21 09:21] LABS: COMPLETE YES; DOHLE BODIES 1+; LYMPH ABS # 0.33 K/uL (1.2-3.4); LYMPHOCYTE % 5.2 %; META ABS # 0.22 K/uL (0-0); METAMYELOCYTE % 3.5 %; MYELOCYTE % 0.9 %; NEUTROPHILS % 84.3 %; PLT ESTIMATE SIGNIFIC DECREASED; TOXIC GRANULATION 1+; VACUOLIZATION 1+
[2017-07-21] MEDS ORDERED: POTASSIUM CHLORIDE 10 MEQ TABCR PO ONE (10:30)
--- NOTE | 2017-07-21 12:47 | Family Medicine Progress Note ---
Progress Note Date of Service Jul 21, 2017. Subjective Pt evaluation today including: conversation w/ patient, conversation w/ family , physical exam, chart review, lab review, review of studies, review of inpatient medication list Pain: denies PO Intake: adequate Voiding: no voiding problems NO acute events. Patient denies any major complaints. She does reprot ongoing fatigue, weakness. She denies Abdominal pain, N/V, CP, SOB, calf tenderness Constitutional: + weakness, No fever, No chills Respiratory: No cough, No sputum, No shortness of breath Cardiovascular: + edema, No chest pain Abdomen: No pain, No nausea, No vomiting Female : No dysuria, No urinary frequency, No hematuria Skin: No rash, No itch Medications Current Inpatient Medications Medications (Trade) Dose Ordered Sig/[place] Route Start Time Stop Time Status Last Admin Dose Admin Zolpidem Tartrate (Ambien Tab) 5 mg HSZ PRN PO 07/11/17 03:30 08/10/17 03:29 Ondansetron HCl (Zofran Inj) 4 mg Q6H PRN IV 07/11/17 03:30 08/10/17 03:29 07/21/17 17:12 4 MG Acetaminophen (Tylenol Tab) 500 mg Q4 PRN PO 07/11/17 05:00 08/10/17 04:59 07/21/17 18:43 500 MG Albuterol (Ventolin Hfa Inhaler) 2 puffs QID INH 07/11/17 08:00 08/10/17 07:59 07/15/17 22:12 2 PUFFS Allopurinol (Zyloprim Tab) 200 mg QPM PO 07/11/17 21:00 08/10/17 20:59 07/20/17 20:40 200 MG Calcium Carbonate (Tums Chew Tab) 500 mg Q4 PRN PO 07/11/17 05:00 08/10/17 04:59 Docusate Sodium (coLACE CAP) 100 mg AMHS PO 07/11/17 08:00 08/10/17 07:59 07/15/17 22:11 100 MG Dronabinol (Marinol Cap) 2.5 mg QAM PO 07/11/17 08:00 08/10/17 07:59 07/21/17 08:14 2.5 MG Fentanyl (Duragesic Patch) 25 mcg Q72H TD 07/11/17 06:00 07/25/17 05:59 07/20/17 05:47 25 MCG Fluticasone Propionate (Flonase Nasal [place]) 2 sprays DAILY VIGNESH 07/11/17 08:00 08/10/17 07:59 07/13/17 08:11 2 SPRAYS Heparin Sodium (Porcine) (Heparin 10 Unit/ ml 5 ml Flush) 5 ml DAILY FLUSH 07/11/17 08:00 08/10/17 07:59 07/21/17 08:29 5 ML Lidocaine (Lidoderm Patch 5%) 1 patch QAM TD 07/11/17 08:00 08/10/17 07:59 07/18/17 09:39 1 PATCH Losartan Potassium (coZAAR TAB) 100 mg DAILY PO 07/11/17 08:00 08/10/17 07:59 07/21/17 08:14 100 MG Meclizine HCl (Antivert Tab) 25 mg TID PRN PO 07/11/17 05:00 08/10/17 04:59 07/13/17 17:48 25 MG Multivitamins/ Minerals (Multivitamin W/ Minerals Tab) 1 tab DAILY PO 07/11/17 08:00 08/10/17 07:59 07/21/17 08:14 1 TAB Nitrofurantoin Macrocrystals (Macrobid Cap) 100 mg BID PO 07/11/17 08:00 08/10/17 07:59 Future Hold 07/14/17 22:05 100 MG Ondansetron HCl (Zofran Tab) 4 mg Q6 PRN PO 07/11/17 05:00 08/10/17 04:59 Oxybutynin Chloride (Ditropan-Xl Tab) 10 mg QAM PO 07/11/17 08:00 08/10/17 07:59 07/21/17 08:14 10 MG Potassium/ Phosphorus/Sodium (Phospha 250 Neutral 155-852-130 Mg) 1 tab QID PO 07/11/17 08:00 08/10/17 07:59 07/21/17 17:12 1 TAB Potassium Chloride (Klor-Con Tab) 40 meq DAILY PO 07/11/17 08:00 08/10/17 07:59 07/21/17 08:16 40 MEQ Prednisone (PredniSONE TAB) 50 mg DAILY PO 07/11/17 08:00 08/10/17 07:59 Future Hold 07/12/17 08:05 50 MG Prochlorperazine (Compazine Supp) 25 mg Q6H PRN [place] 07/11/17 05:00 08/10/17 04:59 Senna/Docusate Sodium (Senokot S Tab) 1 tab Q24H PRN PO 07/11/17 05:00 08/10/17 04:59 Sitagliptin Phosphate (Januvia Tab) 100 mg QAM PO 07/11/17 08:00 08/10/17 07:59 Future Hold 07/15/17 10:03 100 MG Sodium Chloride (Sodium Chloride 0.9% 10 ml Flush) 10 ml DAILY IV 07/11/17 08:00 08/10/17 07:59 07/21/17 08:13 10 ML Miscellaneous (Fentanyl Patch Remove & Waste) 1 ea Q3D N/A 07/11/17 05:59 08/10/17 05:58 07/20/17 05:47 1 EA Miscellaneous Information (Check Fentanyl Patch Placement) 1 ea QS N/A 07/11/17 08:00 08/10/17 07:59 07/21/17 17:47 1 EA Miscellaneous (Remove Lidoderm Patch) 1 ea DAILY@21 N/A 07/11/17 21:00 08/10/17 20:59 07/18/17 20:41 1 EA Glucose (Glucose 40% Gel) 15-30 GRAMS 15 GRAMS... UD PRN PO 07/12/17 21:45 08/11/17 21:44 Glucose (Glucose Chew Tab) 4-8 Tablets 4 Tabl... UD PRN PO 07/12/17 21:45 08/11/17 21:44 Dextrose (Dextrose 50% 50ML Syringe) 25-50ML OF 50% DW IV FOR... UD PRN IV 07/12/17 21:45 08/11/17 21:44 Glucagon (Glucagon Inj) 1 mg UD PRN SQ 07/12/17 21:45 08/11/17 21:44 Magnesium Hydroxide (Milk Of Magnesia Susp) 30 ml Q6H PRN PO 07/13/17 18:45 08/12/17 18:44 07/13/17 23:59 30 ML Polyethylene (Miralax Powder Packet) 17 gm DAILY PRN PO 07/13/17 18:45 08/12/17 18:44 Morphine Sulfate (MoRPHine SULFATE INJ) 2 mg Q4H PRN IV 07/14/17 18:45 07/28/17 18:44 07/15/17 06:44 2 MG Diphenhydramine HCl (Benadryl Inj) 12.5 mg Q6H PRN IV 07/14/17 20:30 08/13/17 20:29 Filgrastim (Neupogen Sq) 480 mcg DAILY SC 07/15/17 13:00 08/14/17 12:59 Future Hold 07/20/17 08:04 480 MCG Pantoprazole Sodium 40 mg/ Syringe 10 ml @ 5 mls/min DAILY@2100 IV 07/15/17 21:00 08/14/17 20:59 07/20/17 20:39 5 MLS/MIN Folic Acid 1 mg/ Syringe 10 ml @ 5 mls/min DAILY IV 07/16/17 09:00 08/15/17 08:59 07/21/17 08:13 5 MLS/MIN Nystatin (Mycostatin Susp) 5 ml QID PO 07/17/17 13:00 07/27/17 12:59 07/20/17 20:38 5 ML Insulin Aspart (novoLOG ASPART) SLIDING SCALE G... ACHS SC 07/17/17 22:00 08/16/17 21:59 07/21/17 12:44 1 UNITS Enteral Nutritional Formula (Boost Breeze Nutritional Drink) 1 box BIDM PO 07/18/17 16:45 08/17/17 16:44 07/18/17 17:25 1 BOX Heparin Sodium (Porcine) (Heparin 10 Unit/ ml 5 ml Flush) 5 ml PRN PRN FLUSH 07/20/17 21:15 08/19/17 21:14 Objective Vital Signs Date Time Temp Pulse Resp B/P (MAP) Pulse Ox O2 Delivery O2 Flow Rate FiO2 07/21/17 19:53 36.5 84 18 146/84 (104) 96 Room Air 07/21/17 16:05 36.3 84 18 142/78 (99) 96 Room Air 07/21/17 16:00 96 Room Air 07/21/17 13:51 Room Air 07/21/17 11:38 36.7 89 20 115/68 (84) 95 07/21/17 07:29 36.6 73 16 152/76 (101) 94 Room Air 07/21/17 03:12 73 148/83 (104) 07/21/17 00:58 86 172/79 (110) 07/21/17 00:00 Room Air 07/20/17 23:15 36.6 93 18 183/80 (114) 95 Room Air Physical Exam Notes: GENERAL: alert, awake sitting in chair obese , NAD EYE EXAM: normal conjunctiva, PERRL and EOM's grossly intact NECK: supple, no nuchal rigidity, no adenopathy, non-tender LUNGS: Clear to auscultation. Normal chest wall mechanics HEART: no murmurs, S1 normal and S2 normal ABDOMEN: abdomen soft, non-tender, normo-active bowel sounds, no masses, no rebound or guarding. UPPER EXTREMITIES: upper extremities are grossly normal. LOWER EXTREMITIES: 2 + LE edema Clif . NEURO EXAM: AOx3, cranial nerves II-XII grossly intact, normal speech Laboratory Results Results Past 24 Hours Test 07/20/17 20:24 07/21/17 07:39 07/21/17 08:26 07/21/17 11:34 Range/Units Bedside Glucose 108 83 131 70-90 mg/dl White Blood Count 6.42 4.8-10.8 K/uL Red Blood Count 3.41 4.2-5.4 M/uL Hemoglobin 10.0 12.0-16.0 g/dL Hematocrit 30.3 37-47 % Mean Corpuscular Volume 88.9 80-100 fL Mean Corpuscular Hemoglobin 29.3 25-34 pg Mean Corpuscular Hemoglobin Concent 33.0 32-36 g/dl Platelet Count 16 130-400 K/uL Mean Platelet Volume 11.9 7.4-10.4 fL RDW Standard Deviation 51.3 36.4-46.3 fL RDW Coefficient of Variation 16.0 11.5-14.5 % Nucleated RBC Absolute Count (auto) 0.04 0-0 K/uL Neutrophils % (Manual) 84.3 % Lymphocytes % (Manual) 5.2 % Monocytes % (Manual) 6.1 % Metamyelocytes % 3.5 % Myelocytes % 0.9 % Nucleated Red Blood Cells % 0.6 % Neutrophils # (Manual) 5.41 1.4-6.5 K/uL Total Absolute Neutrophils 5.41 1.4-6.5 K/uL Lymphocytes # (Manual) 0.33 1.2-3.4 K/uL Total Absolute Lymphocytes 0.33 1.2-3.4 K/uL Monocytes # (Manual) 0.39 0.11-0.59 K/uL Metamyelocytes # 0.22 0-0 K/uL Myelocytes # 0.06 0-0 K/uL Toxic Granulation 1+ Toxic Vacuolation 1+ Dohle Bodies 1+ Platelet Estimate SIGNIFIC DECREASED Sodium Level 143 136-145 mmol/L Potassium Level 3.3 3.5-5.1 mmol/L Chloride Level 107 98-107 mmol/L Carbon Dioxide Level 30 21-32 mmol/L Anion Gap 6.0 3-11 mmol/L Blood Urea Nitrogen 8 7-18 mg/dl Creatinine 0.68 0.60-1.20 mg/dl Est Creatinine Clear Calc Drug Dose 82.1 ml/min Estimated GFR () 99.2 Estimated GFR (Non- 85.6 BUN/Creatinine Ratio 11.9 10-20 Random Glucose 81 70-99 mg/dl Calcium Level 7.6 8.5-10.1 mg/dl Test 07/21/17 16:52 Range/Units Bedside Glucose 122 70-90 mg/dl Assessment and Plan 77 yo F w/ hx of Lymphoma on chemo managed at [facility], hx of multidrug resistant UTI, Rt sided staghorn calculi, HTN, DM, p/w hx of Mechanical fall, found to be pancytopenic with Neutrophil Ct of .2 on arrival, Hb 7.8, Plt 19 on admission likely secondary to chemo. Pancytopenia: likely 2/2 BM suppression in setting of Chemotherapy - Absolute Neutrophil ct improved, - WBC count improved, 6.42, Hb - S/p 3 units PRBC transfusion, 6 units platelet transfusion -Filgrastim on hold now - Fecal occult blood positive but h/h stable - Monitor CBC, I/O Diarrhea - improved - C diff testing negative. Edema - ? from fluid overload - s/p 40 mg Lasix 07/18 - Monitor I/O Multidrug resistant UTI with right-sided staghorn calculus: - UA: 2+ occult blood , pos.nitrite - D/C ertapenem and vancomycin - D/Continue acyclovir and Diflucan Hypoxia - saturating well on rm air - O2 per protocol Diabetes type 2: - Glucose controlled - Hemoglobin A1c at 6.5 - Continue sitagliptin - ISS Neurogenic bladder: - Cont. oxybutynin Mechanical fall with head injury: - CT head/ neck unremarkable - Continue pain mgmt Lymphoma: - chemotherapy management per Dr. Lopez HTN - BP elevated , correlated with anxiety per nurse -Continue losartan -continue to monitor Back pain: - Continue pain management Vertigo: - Continue meclizine - Fall precautions DVT prophylaxis: SCDs No anticoagulation due to thrombocytopenia Disposition: Awaiting placement - referral made to [facility] Continued [facility] stay due to: home environment unsafe for pt Discharge planning: nursing home facility Resident Tracking Resident Involvement: Resident Care Provided Care Provided: Adult Hospital Medicine Reviewed: Pt Seen/Exam by Me History sitting in bed. feeling better no more diarrhea Constitutional: denies: fever Respiratory: negative: short of breath Cardiovascular: denies chest pain Gastrointestinal/Abdominal: negative: abdominal pain, diarrhea General Appearance: no apparent distress Respiratory: lungs clear, no respiratory distress Cardiovascular: regular rate, rhythm Neurologic/Psychiatric: alert, oriented x 3 Skin Characteristics: warm/dry Assessment/Plan Resident Physician Supervision Note: I was present with Dr. Centeno in bedside. I verified the samson history and physical, reviewed labs and image studies, discussed the case with the resident and agree with the findings and care plan.
[2017-07-21] MEDS: ACETAMINOPHEN 500 MG TAB PO PRN (18:43)
--- NOTE | 2017-07-21 20:13 | Infectious Disease Progress Nt ---
Progress Note Date of Service Jul 21, 2017. Subjective Pt evaluation today including: conversation w/ patient, physical exam, chart review, lab review, review of studies, conversation w/ center lead consultant, review of inpatient medication list Patient feeling better today. Offers no new complaints. Remains afebrile. White blood cell count has recovered. All Other Systems: Reviewed and Negative Medications Current Inpatient Medications Medications (Trade) Dose Ordered Sig/[place] Route Start Time Stop Time Status Last Admin Dose Admin Zolpidem Tartrate (Ambien Tab) 5 mg HSZ PRN PO 07/11/17 03:30 08/10/17 03:29 Ondansetron HCl (Zofran Inj) 4 mg Q6H PRN IV 07/11/17 03:30 08/10/17 03:29 07/21/17 17:12 4 MG Acetaminophen (Tylenol Tab) 500 mg Q4 PRN PO 07/11/17 05:00 08/10/17 04:59 07/21/17 18:43 500 MG Albuterol (Ventolin Hfa Inhaler) 2 puffs QID INH 07/11/17 08:00 08/10/17 07:59 07/15/17 22:12 2 PUFFS Allopurinol (Zyloprim Tab) 200 mg QPM PO 07/11/17 21:00 08/10/17 20:59 07/20/17 20:40 200 MG Calcium Carbonate (Tums Chew Tab) 500 mg Q4 PRN PO 07/11/17 05:00 08/10/17 04:59 Docusate Sodium (coLACE CAP) 100 mg AMHS PO 07/11/17 08:00 08/10/17 07:59 07/15/17 22:11 100 MG Dronabinol (Marinol Cap) 2.5 mg QAM PO 07/11/17 08:00 08/10/17 07:59 07/21/17 08:14 2.5 MG Fentanyl (Duragesic Patch) 25 mcg Q72H TD 07/11/17 06:00 07/25/17 05:59 07/20/17 05:47 25 MCG Fluticasone Propionate (Flonase Nasal [place]) 2 sprays DAILY VIGNESH 07/11/17 08:00 08/10/17 07:59 07/13/17 08:11 2 SPRAYS Heparin Sodium (Porcine) (Heparin 10 Unit/ ml 5 ml Flush) 5 ml DAILY FLUSH 07/11/17 08:00 08/10/17 07:59 07/21/17 08:29 5 ML Lidocaine (Lidoderm Patch 5%) 1 patch QAM TD 07/11/17 08:00 08/10/17 07:59 07/18/17 09:39 1 PATCH Losartan Potassium (coZAAR TAB) 100 mg DAILY PO 07/11/17 08:00 08/10/17 07:59 07/21/17 08:14 100 MG Meclizine HCl (Antivert Tab) 25 mg TID PRN PO 07/11/17 05:00 08/10/17 04:59 07/13/17 17:48 25 MG Multivitamins/ Minerals (Multivitamin W/ Minerals Tab) 1 tab DAILY PO 07/11/17 08:00 08/10/17 07:59 07/21/17 08:14 1 TAB Nitrofurantoin Macrocrystals (Macrobid Cap) 100 mg BID PO 07/11/17 08:00 08/10/17 07:59 Future Hold 07/14/17 22:05 100 MG Ondansetron HCl (Zofran Tab) 4 mg Q6 PRN PO 07/11/17 05:00 08/10/17 04:59 Oxybutynin Chloride (Ditropan-Xl Tab) 10 mg QAM PO 07/11/17 08:00 08/10/17 07:59 07/21/17 08:14 10 MG Potassium/ Phosphorus/Sodium (Phospha 250 Neutral 155-852-130 Mg) 1 tab QID PO 07/11/17 08:00 08/10/17 07:59 07/21/17 17:12 1 TAB Potassium Chloride (Klor-Con Tab) 40 meq DAILY PO 07/11/17 08:00 08/10/17 07:59 07/21/17 08:16 40 MEQ Prednisone (PredniSONE TAB) 50 mg DAILY PO 07/11/17 08:00 08/10/17 07:59 Future Hold 07/12/17 08:05 50 MG Prochlorperazine (Compazine Supp) 25 mg Q6H PRN [place] 07/11/17 05:00 08/10/17 04:59 Senna/Docusate Sodium (Senokot S Tab) 1 tab Q24H PRN PO 07/11/17 05:00 08/10/17 04:59 Sitagliptin Phosphate (Januvia Tab) 100 mg QAM PO 07/11/17 08:00 08/10/17 07:59 Future Hold 07/15/17 10:03 100 MG Sodium Chloride (Sodium Chloride 0.9% 10 ml Flush) 10 ml DAILY IV 07/11/17 08:00 08/10/17 07:59 07/21/17 08:13 10 ML Miscellaneous (Fentanyl Patch Remove & Waste) 1 ea Q3D N/A 07/11/17 05:59 08/10/17 05:58 07/20/17 05:47 1 EA Miscellaneous Information (Check Fentanyl Patch Placement) 1 ea QS N/A 07/11/17 08:00 08/10/17 07:59 07/21/17 17:47 1 EA Miscellaneous (Remove Lidoderm Patch) 1 ea DAILY@21 N/A 07/11/17 21:00 08/10/17 20:59 07/18/17 20:41 1 EA Glucose (Glucose 40% Gel) 15-30 GRAMS 15 GRAMS... UD PRN PO 07/12/17 21:45 08/11/17 21:44 Glucose (Glucose Chew Tab) 4-8 Tablets 4 Tabl... UD PRN PO 07/12/17 21:45 08/11/17 21:44 Dextrose (Dextrose 50% 50ML Syringe) 25-50ML OF 50% DW IV FOR... UD PRN IV 07/12/17 21:45 08/11/17 21:44 Glucagon (Glucagon Inj) 1 mg UD PRN SQ 07/12/17 21:45 08/11/17 21:44 Magnesium Hydroxide (Milk Of Magnesia Susp) 30 ml Q6H PRN PO 07/13/17 18:45 08/12/17 18:44 07/13/17 23:59 30 ML Polyethylene (Miralax Powder Packet) 17 gm DAILY PRN PO 07/13/17 18:45 08/12/17 18:44 Morphine Sulfate (MoRPHine SULFATE INJ) 2 mg Q4H PRN IV 07/14/17 18:45 07/28/17 18:44 07/15/17 06:44 2 MG Diphenhydramine HCl (Benadryl Inj) 12.5 mg Q6H PRN IV 07/14/17 20:30 08/13/17 20:29 Filgrastim (Neupogen Sq) 480 mcg DAILY SC 07/15/17 13:00 08/14/17 12:59 Future Hold 07/20/17 08:04 480 MCG Pantoprazole Sodium 40 mg/ Syringe 10 ml @ 5 mls/min DAILY@2100 IV 07/15/17 21:00 08/14/17 20:59 07/20/17 20:39 5 MLS/MIN Folic Acid 1 mg/ Syringe 10 ml @ 5 mls/min DAILY IV 07/16/17 09:00 08/15/17 08:59 07/21/17 08:13 5 MLS/MIN Nystatin (Mycostatin Susp) 5 ml QID PO 07/17/17 13:00 07/27/17 12:59 07/20/17 20:38 5 ML Insulin Aspart (novoLOG ASPART) SLIDING SCALE G... ACHS SC 07/17/17 22:00 08/16/17 21:59 07/21/17 12:44 1 UNITS Enteral Nutritional Formula (Boost Breeze Nutritional Drink) 1 box BIDM PO 07/18/17 16:45 08/17/17 16:44 07/18/17 17:25 1 BOX Heparin Sodium (Porcine) (Heparin 10 Unit/ ml 5 ml Flush) 5 ml PRN PRN FLUSH 07/20/17 21:15 08/19/17 21:14 Objective Vital Signs Date Time Temp Pulse Resp B/P (MAP) Pulse Ox O2 Delivery O2 Flow Rate FiO2 07/21/17 19:53 36.5 84 18 146/84 (104) 96 Room Air 07/21/17 16:05 36.3 84 18 142/78 (99) 96 Room Air 07/21/17 16:00 96 Room Air 07/21/17 13:51 Room Air 07/21/17 11:38 36.7 89 20 115/68 (84) 95 07/21/17 07:29 36.6 73 16 152/76 (101) 94 Room Air 07/21/17 03:12 73 148/83 (104) 07/21/17 00:58 86 172/79 (110) 07/21/17 00:00 Room Air 07/20/17 23:15 36.6 93 18 183/80 (114) 95 Room Air Physical Exam General Appearance: WD/WN, no apparent distress Eyes: normal inspection, EOMI, sclerae normal ENT: normal ENT inspection, pharynx normal Neck: supple, no adenopathy, trachea midline Respiratory/Chest: chest non-tender, lungs clear, normal breath sounds, no respiratory distress Cardiovascular: regular rate, rhythm, no gallop, no murmur Abdomen: normal bowel sounds, non tender, soft, no organomegaly Extremities: non-tender, no calf tenderness Neurologic/Psychiatric: alert, oriented x 3 Skin: normal color, warm/dry, no rash Laboratory Results Last 24 Hours Test 07/20/17 20:24 07/21/17 07:39 07/21/17 08:26 07/21/17 11:34 Bedside Glucose 108 mg/dl 83 mg/dl 131 mg/dl White Blood Count 6.42 K/uL Red Blood Count 3.41 M/uL Hemoglobin 10.0 g/dL Hematocrit 30.3 % Mean Corpuscular Volume 88.9 fL Mean Corpuscular Hemoglobin 29.3 pg Mean Corpuscular Hemoglobin Concent 33.0 g/dl Platelet Count 16 K/uL Mean Platelet Volume 11.9 fL RDW Standard Deviation 51.3 fL RDW Coefficient of Variation 16.0 % Nucleated RBC Absolute Count (auto) 0.04 K/uL Neutrophils % (Manual) 84.3 % Lymphocytes % (Manual) 5.2 % Monocytes % (Manual) 6.1 % Metamyelocytes % 3.5 % Myelocytes % 0.9 % Nucleated Red Blood Cells % 0.6 % Neutrophils # (Manual) 5.41 K/uL Total Absolute Neutrophils 5.41 K/uL Lymphocytes # (Manual) 0.33 K/uL Total Absolute Lymphocytes 0.33 K/uL Monocytes # (Manual) 0.39 K/uL Metamyelocytes # 0.22 K/uL Myelocytes # 0.06 K/uL Toxic Granulation 1+ Toxic Vacuolation 1+ Dohle Bodies 1+ Platelet Estimate SIGNIFIC DECREASED Sodium Level 143 mmol/L Potassium Level 3.3 mmol/L Chloride Level 107 mmol/L Carbon Dioxide Level 30 mmol/L Anion Gap 6.0 mmol/L Blood Urea Nitrogen 8 mg/dl Creatinine 0.68 mg/dl Est Creatinine Clear Calc Drug Dose 82.1 ml/min Estimated GFR () 99.2 Estimated GFR (Non- 85.6 BUN/Creatinine Ratio 11.9 Random Glucose 81 mg/dl Calcium Level 7.6 mg/dl Test 07/21/17 16:52 Bedside Glucose 122 mg/dl Assessment and Plan 77-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 No evidence of central line infection. White count appears to be slowly recovering , would continue antibiotics for another 1-2 days.
[2017-07-21] MEDS: ALLOPURINOL 100 MG TAB PO SCH (20:35)
[2017-07-21] MEDS: PANTOprazole INJ 40 MG in SYRINGE 0 ML IV SCH (20:39)
[2017-07-22 00:11] VITALS: BP 148/82; PULSE 82; TEMP 36.5; O2SAT 95
[2017-07-22] MEDS ORDERED: HYDROCODONE/ACETAMOPHEN 5/325MG TAB ONE ×2 (01:05→19:09)
[2017-07-22] MEDS: CHECK FENTANYL PATCH PLACEMENT SCH ×3 (01:08→16:28)
[2017-07-22] MEDS ORDERED: NURSING VERBAL MED ORDER ONE (01:15)
[2017-07-22] MEDS ORDERED: HYDROCODONE/ACETAMOPHEN 5/325MG TAB PO STA (01:24)
[2017-07-22 07:35] VITALS: BP 160/90; PULSE 82; TEMP 36.4; O2SAT 98
[2017-07-22 07:57] LABS: BUN/CREATININE RATIO 10.8 (10-20); CALCIUM 7.2 mg/dl (8.5-10.1); CREATININE 0.72 mg/dl (0.60-1.20); POTASSIUM 3.7 mmol/L (3.5-5.1)
[2017-07-22] MEDS: FLUTICASONE PROPIONATE NA SPR 16 GM BTL NAE SCH (08:00)
[2017-07-22] MEDS: ONDANSETRON INJ 2 MG/ML 2 ML VIAL IV PRN (08:27)
[2017-07-22] MEDS: SODIUM CHLORIDE 0.9% 10ML FLUSH IV SCH (08:27)
[2017-07-22] MEDS: FoLIC ACID INJ 1 MG in SYRINGE 9.8 ML IV SCH (08:27)
[2017-07-22] MEDS: ALBUTEROL HFA 8 GM INHALER INH SCH ×4 (08:36→17:27)
[2017-07-22] MEDS: BOOST BREEZE NUTRITION DRINK 1 BOX PO SCH ×2 (08:36→17:00)
[2017-07-22] MEDS: DOCUSATE SODIUM 100 MG CAP PO SCH ×2 (08:37→17:26)
[2017-07-22] MEDS: OXYBUTYNIN CHLORIDE 5 MG TABCR PO SCH (08:38)
[2017-07-22] MEDS: DRONABINOL 2.5 MG CAP PO SCH (08:38)
[2017-07-22] MEDS: POTASSIUM CHLORIDE 20 MEQ TABCR PO SCH (08:38)
[2017-07-22] MEDS: LOSARTAN POTASSIUM 50 MG TAB PO SCH (08:38)
[2017-07-22] MEDS: POT PHOSPHATE MONOBASIC W/ SOD TAB PO SCH ×4 (08:39→18:48)
[2017-07-22] MEDS: CEROVITE ADV FORMULA TAB PO SCH (08:39)
[2017-07-22] MEDS: LIDODERM (LIDOCAINE) PATCH 5% TD SCH (08:39)
[2017-07-22] MEDS: NYSTATIN SUSP 500,000 U/5 ML UDC PO SCH ×4 (08:39→17:27)
[2017-07-22 08:40] LABS: HEMATOCRIT 27.5 % (37-47); MEAN CELL VOLUME 89.9 fL (80-100); MEAN CORPUSCULAR HEMOGLOBIN 30.4 pg (25-34); MEAN CORPUSCULAR HGB CONC 33.8 g/dl (32-36); MEAN PLATELET VOLUME 10.4 fL (7.4-10.4); PLATELET COUNT 19 K/uL (130-400); RED BLOOD COUNT 3.06 M/uL (4.2-5.4); WHITE BLOOD COUNT 8.67 K/uL (4.8-10.8)
[2017-07-22 08:41] LABS: BASO ABS # 0.08 K/uL (0-0.2); BASOPHIL % 0.9 %; COMPLETE YES; DOHLE BODIES 1+; LYMPH ABS # 0.23 K/uL (1.2-3.4); LYMPHOCYTE % 2.6 %; META ABS # 0.08 K/uL (0-0); METAMYELOCYTE % 0.9 %; NEUTROPHILS % 91.3 %; PLT ESTIMATE SIGNIFIC DECREASED; POLYCHROMASIA 1+; TOXIC GRANULATION 1+
[2017-07-22] MEDS: INSULIN ASPART 100 UNITS/ML 3 ML PEN SC SCH ×4 (10:13→20:45)
--- NOTE | 2017-07-22 10:52 | Family Medicine Progress Note ---
Progress Note Date of Service Jul 22, 2017. Subjective Pt evaluation today including: conversation w/ patient, conversation w/ family , physical exam, chart review, lab review, review of studies, review of inpatient medication list Pain: denies PO Intake: adequate Voiding: no voiding problems No acute events overnight, Patient reports some nausea without vomiting in addition to ongoing fatigue. She denies CP, SOB, Abdominal pain, calf tenderness. Constitutional: + weakness, No fever, No chills Respiratory: No cough, No sputum, No shortness of breath Cardiovascular: + edema, No claudication Abdomen: + nausea, No pain, No vomiting Female : No dysuria, No urinary frequency, No hematuria Skin: No rash, No itch Medications Current Inpatient Medications Medications (Trade) Dose Ordered Sig/[place] Route Start Time Stop Time Status Last Admin Dose Admin Zolpidem Tartrate (Ambien Tab) 5 mg HSZ PRN PO 07/11/17 03:30 08/10/17 03:29 Ondansetron HCl (Zofran Inj) 4 mg Q6H PRN IV 07/11/17 03:30 08/10/17 03:29 07/22/17 08:27 4 MG Acetaminophen (Tylenol Tab) 500 mg Q4 PRN PO 07/11/17 05:00 08/10/17 04:59 07/21/17 18:43 500 MG Albuterol (Ventolin Hfa Inhaler) 2 puffs QID INH 07/11/17 08:00 08/10/17 07:59 07/15/17 22:12 2 PUFFS Allopurinol (Zyloprim Tab) 200 mg QPM PO 07/11/17 21:00 08/10/17 20:59 07/21/17 20:35 200 MG Calcium Carbonate (Tums Chew Tab) 500 mg Q4 PRN PO 07/11/17 05:00 08/10/17 04:59 Docusate Sodium (coLACE CAP) 100 mg AMHS PO 07/11/17 08:00 08/10/17 07:59 07/15/17 22:11 100 MG Dronabinol (Marinol Cap) 2.5 mg QAM PO 07/11/17 08:00 08/10/17 07:59 07/22/17 08:38 2.5 MG Fentanyl (Duragesic Patch) 25 mcg Q72H TD 07/11/17 06:00 07/25/17 05:59 07/20/17 05:47 25 MCG Fluticasone Propionate (Flonase Nasal [place]) 2 sprays DAILY VIGNESH 07/11/17 08:00 08/10/17 07:59 07/13/17 08:11 2 SPRAYS Heparin Sodium (Porcine) (Heparin 10 Unit/ ml 5 ml Flush) 5 ml DAILY FLUSH 07/11/17 08:00 08/10/17 07:59 07/22/17 08:27 5 ML Lidocaine (Lidoderm Patch 5%) 1 patch QAM TD 07/11/17 08:00 08/10/17 07:59 07/18/17 09:39 1 PATCH Losartan Potassium (coZAAR TAB) 100 mg DAILY PO 07/11/17 08:00 08/10/17 07:59 07/22/17 08:38 100 MG Meclizine HCl (Antivert Tab) 25 mg TID PRN PO 07/11/17 05:00 08/10/17 04:59 07/13/17 17:48 25 MG Multivitamins/ Minerals (Multivitamin W/ Minerals Tab) 1 tab DAILY PO 07/11/17 08:00 08/10/17 07:59 07/22/17 08:39 1 TAB Nitrofurantoin Macrocrystals (Macrobid Cap) 100 mg BID PO 07/11/17 08:00 08/10/17 07:59 Future Hold 07/14/17 22:05 100 MG Ondansetron HCl (Zofran Tab) 4 mg Q6 PRN PO 07/11/17 05:00 08/10/17 04:59 Oxybutynin Chloride (Ditropan-Xl Tab) 10 mg QAM PO 07/11/17 08:00 08/10/17 07:59 07/22/17 08:38 10 MG Potassium/ Phosphorus/Sodium (Phospha 250 Neutral 155-852-130 Mg) 1 tab QID PO 07/11/17 08:00 08/10/17 07:59 07/22/17 08:39 1 TAB Potassium Chloride (Klor-Con Tab) 40 meq DAILY PO 07/11/17 08:00 08/10/17 07:59 07/22/17 08:38 40 MEQ Prednisone (PredniSONE TAB) 50 mg DAILY PO 07/11/17 08:00 08/10/17 07:59 Future Hold 07/12/17 08:05 50 MG Prochlorperazine (Compazine Supp) 25 mg Q6H PRN [place] 07/11/17 05:00 08/10/17 04:59 Senna/Docusate Sodium (Senokot S Tab) 1 tab Q24H PRN PO 07/11/17 05:00 08/10/17 04:59 Sitagliptin Phosphate (Januvia Tab) 100 mg QAM PO 07/11/17 08:00 08/10/17 07:59 Future Hold 07/15/17 10:03 100 MG Sodium Chloride (Sodium Chloride 0.9% 10 ml Flush) 10 ml DAILY IV 07/11/17 08:00 08/10/17 07:59 07/22/17 08:27 10 ML Miscellaneous (Fentanyl Patch Remove & Waste) 1 ea Q3D N/A 07/11/17 05:59 08/10/17 05:58 07/20/17 05:47 1 EA Miscellaneous Information (Check Fentanyl Patch Placement) 1 ea QS N/A 07/11/17 08:00 08/10/17 07:59 07/22/17 08:36 1 EA Miscellaneous (Remove Lidoderm Patch) 1 ea DAILY@21 N/A 07/11/17 21:00 08/10/17 20:59 07/18/17 20:41 1 EA Glucose (Glucose 40% Gel) 15-30 GRAMS 15 GRAMS... UD PRN PO 07/12/17 21:45 08/11/17 21:44 Glucose (Glucose Chew Tab) 4-8 Tablets 4 Tabl... UD PRN PO 07/12/17 21:45 08/11/17 21:44 Dextrose (Dextrose 50% 50ML Syringe) 25-50ML OF 50% DW IV FOR... UD PRN IV 07/12/17 21:45 08/11/17 21:44 Glucagon (Glucagon Inj) 1 mg UD PRN SQ 07/12/17 21:45 08/11/17 21:44 Magnesium Hydroxide (Milk Of Magnesia Susp) 30 ml Q6H PRN PO 07/13/17 18:45 08/12/17 18:44 07/13/17 23:59 30 ML Polyethylene (Miralax Powder Packet) 17 gm DAILY PRN PO 07/13/17 18:45 08/12/17 18:44 Morphine Sulfate (MoRPHine SULFATE INJ) 2 mg Q4H PRN IV 07/14/17 18:45 07/28/17 18:44 07/15/17 06:44 2 MG Diphenhydramine HCl (Benadryl Inj) 12.5 mg Q6H PRN IV 07/14/17 20:30 08/13/17 20:29 Filgrastim (Neupogen Sq) 480 mcg DAILY SC 07/15/17 13:00 08/14/17 12:59 Future Hold 07/20/17 08:04 480 MCG Pantoprazole Sodium 40 mg/ Syringe 10 ml @ 5 mls/min DAILY@2100 IV 07/15/17 21:00 08/14/17 20:59 07/21/17 20:39 5 MLS/MIN Folic Acid 1 mg/ Syringe 10 ml @ 5 mls/min DAILY IV 07/16/17 09:00 08/15/17 08:59 07/22/17 08:27 5 MLS/MIN Nystatin (Mycostatin Susp) 5 ml QID PO 07/17/17 13:00 07/27/17 12:59 07/20/17 20:38 5 ML Insulin Aspart (novoLOG ASPART) SLIDING SCALE G... ACHS SC 07/17/17 22:00 08/16/17 21:59 07/21/17 12:44 1 UNITS Enteral Nutritional Formula (Boost Breeze Nutritional Drink) 1 box BIDM PO 07/18/17 16:45 08/17/17 16:44 07/18/17 17:25 1 BOX Heparin Sodium (Porcine) (Heparin 10 Unit/ ml 5 ml Flush) 5 ml PRN PRN FLUSH 07/20/17 21:15 08/19/17 21:14 07/22/17 07:31 5 ML Objective Vital Signs Date Time Temp Pulse Resp B/P (MAP) Pulse Ox O2 Delivery O2 Flow Rate FiO2 07/22/17 07:35 36.4 82 16 160/90 (113) 98 Room Air 07/22/17 00:20 Room Air 07/22/17 00:11 36.5 82 20 148/82 (104) 95 Room Air 07/21/17 19:53 36.5 84 18 146/84 (104) 96 Room Air 07/21/17 16:05 36.3 84 18 142/78 (99) 96 Room Air 07/21/17 16:00 96 Room Air 07/21/17 13:51 Room Air 07/21/17 11:38 36.7 89 20 115/68 (84) 95 Physical Exam Notes: GENERAL: alert, awake, sitting in chair, obese , NAD EYE EXAM: normal conjunctiva, PERRL and EOM's grossly intact NECK: supple, no nuchal rigidity, no adenopathy, non-tender LUNGS: Clear to auscultation. Normal chest wall mechanics HEART: no murmurs, S1 normal and S2 normal ABDOMEN: abdomen soft, non-tender, normo-active bowel sounds, no masses, no rebound or guarding. UPPER EXTREMITIES: upper extremities are grossly normal. LOWER EXTREMITIES: 2 + pedal edema Clif . NEURO EXAM: AOx3, cranial nerves II-XII grossly intact, normal speech Laboratory Results Results Past 24 Hours Test 07/21/17 11:34 07/21/17 16:52 07/21/17 20:24 07/22/17 07:27 Range/Units Bedside Glucose 131 122 131 70-90 mg/dl White Blood Count 8.67 4.8-10.8 K/uL Red Blood Count 3.06 4.2-5.4 M/uL Hemoglobin 9.3 12.0-16.0 g/dL Hematocrit 27.5 37-47 % Mean Corpuscular Volume 89.9 80-100 fL Mean Corpuscular Hemoglobin 30.4 25-34 pg Mean Corpuscular Hemoglobin Concent 33.8 32-36 g/dl Platelet Count 19 130-400 K/uL Mean Platelet Volume 10.4 7.4-10.4 fL RDW Standard Deviation 53.4 36.4-46.3 fL RDW Coefficient of Variation 16.3 11.5-14.5 % Nucleated RBC Absolute Count (auto) 0.06 0-0 K/uL Neutrophils % (Manual) 91.3 % Lymphocytes % (Manual) 2.6 % Monocytes % (Manual) 4.3 % Basophils % (Manual) 0.9 % Metamyelocytes % 0.9 % Nucleated Red Blood Cells % 0.7 % Neutrophils # (Manual) 7.92 1.4-6.5 K/uL Total Absolute Neutrophils 7.92 1.4-6.5 K/uL Lymphocytes # (Manual) 0.23 1.2-3.4 K/uL Total Absolute Lymphocytes 0.23 1.2-3.4 K/uL Monocytes # (Manual) 0.37 0.11-0.59 K/uL Basophils # (Manual) 0.08 0-0.2 K/uL Metamyelocytes # 0.08 0-0 K/uL Toxic Granulation 1+ Dohle Bodies 1+ Platelet Estimate SIGNIFIC DECREASED Polychromasia 1+ Sodium Level 143 136-145 mmol/L Potassium Level 3.7 3.5-5.1 mmol/L Chloride Level 108 98-107 mmol/L Carbon Dioxide Level 32 21-32 mmol/L Anion Gap 3.0 3-11 mmol/L Blood Urea Nitrogen 8 7-18 mg/dl Creatinine 0.72 0.60-1.20 mg/dl Est Creatinine Clear Calc Drug Dose 77.5 ml/min Estimated GFR () 94.9 Estimated GFR (Non- 81.9 BUN/Creatinine Ratio 10.8 10-20 Random Glucose 79 70-99 mg/dl Calcium Level 7.2 8.5-10.1 mg/dl Test 07/22/17 08:17 Range/Units Bedside Glucose 76 70-90 mg/dl Assessment and Plan 77 yo F w/ hx of Lymphoma on chemo managed at [place], hx of multidrug resistant UTI, Rt sided staghorn calculi, HTN, DM, p/w hx of Mechanical fall, found to be pancytopenic with Neutrophil Ct of .2 on arrival, Hb 7.8, Plt 19 on admission likely secondary to chemo. Pancytopenia: likely 2/2 BM suppression in setting of Chemotherapy - Absolute Neutrophil ct improved, - WBC count improved, 8.67 Hb 9.3 - S/p 3 units PRBC transfusion, 6 units platelet transfusion -Filgrastim on hold now - Fecal occult blood positive but h/h stable - Monitor CBC, I/O Diarrhea - improved - C diff testing negative. LE Edema - ? from fluid overload vs chronic edema - s/p 40 mg Lasix 07/18 - Monitor I/O Multidrug resistant UTI with right-sided staghorn calculus: - UA: 2+ occult blood , pos.nitrite - ertapenem and vancomycin remain D/C'd - acyclovir and Diflucan remain D/C Hypoxia - saturating well on rm air - O2 per protocol Diabetes type 2: - Glucose controlled - Hemoglobin A1c at 6.5 - Continue sitagliptin - ISS Neurogenic bladder: - Cont. oxybutynin Mechanical fall with head injury: - CT head/ neck unremarkable - Continue pain mgmt Lymphoma: - chemotherapy management per Dr. Vu HTN - BP elevated , correlated with anxiety per nurse -Continue losartan -continue to monitor Back pain: - Continue pain management Vertigo: - Continue meclizine - Fall precautions DVT prophylaxis: SCDs No anticoagulation due to thrombocytopenia Disposition: Awaiting placement - [facility] refuse placement F/u with case management for alternative Continued [facility] stay due to: home environment unsafe for pt Discharge planning: rehab hospital Resident Tracking Resident Involvement: Resident Care Provided Care Provided: Adult Hospital Medicine
[2017-07-22 11:36] VITALS: BP 123/70; PULSE 79; TEMP 36.3; O2SAT 95
[2017-07-22 15:15] VITALS: BP 138/80; PULSE 79; TEMP 36.5; O2SAT 96
[2017-07-22] MEDS: PANTOprazole INJ 40 MG in SYRINGE 0 ML IV SCH (18:48)
[2017-07-22] MEDS: ALLOPURINOL 100 MG TAB PO SCH (18:50)
[2017-07-22 19:35] VITALS: BP 153/84; PULSE 78; TEMP 36.8; O2SAT 96
[2017-07-23] VITALS (7 sets, daily range): BP systolic 119–169; BP diastolic 64–85; PULSE 73–81; TEMP 36.4–36.7; O2SAT 94–98
[2017-07-23] MEDS: CHECK FENTANYL PATCH PLACEMENT SCH ×3 (01:47→17:26)
[2017-07-23] MEDS: FENTANYL 25 MCG/HR TDSY TD SCH (06:26)
[2017-07-23] MEDS: FENTANYL PATCH REMOVE & WASTE SCH (06:29)
[2017-07-23] MEDS: NITROFURANTOIN MONOHYDRATE 100 MG CAP PO SCH (07:16)
[2017-07-23 07:50] LABS: HEMATOCRIT 28.4 % (37-47); MEAN CELL VOLUME 91.3 fL (80-100); MEAN CORPUSCULAR HEMOGLOBIN 30.5 pg (25-34); MEAN CORPUSCULAR HGB CONC 33.5 g/dl (32-36); MEAN PLATELET VOLUME 8.8 fL (7.4-10.4); PLATELET COUNT 26 K/uL (130-400); RED BLOOD COUNT 3.11 M/uL (4.2-5.4)
[2017-07-23 07:58] LABS: BUN/CREATININE RATIO 8.8 (10-20); CALCIUM 7.2 mg/dl (8.5-10.1); CREATININE 0.78 mg/dl (0.60-1.20); POTASSIUM 3.5 mmol/L (3.5-5.1)
[2017-07-23 08:16] LABS: COMPLETE YES; DOHLE BODIES 2+; LYMPH ABS # 0.91 K/uL (1.2-3.4); LYMPHOCYTE % 10.6 %; META ABS # 0.15 K/uL (0-0); METAMYELOCYTE % 1.8 %; NEUTROPHILS % 68.1 %; TOXIC GRANULATION 2+
[2017-07-23] MEDS: ONDANSETRON INJ 2 MG/ML 2 ML VIAL IV PRN (09:01)
[2017-07-23] MEDS: DRONABINOL 2.5 MG CAP PO SCH (09:04)
[2017-07-23] MEDS: OXYBUTYNIN CHLORIDE 5 MG TABCR PO SCH (09:05)
[2017-07-23] MEDS: LOSARTAN POTASSIUM 50 MG TAB PO SCH (09:05)
[2017-07-23] MEDS: POTASSIUM CHLORIDE 20 MEQ TABCR PO SCH ×2 (09:06→09:16)
[2017-07-23] MEDS: SODIUM CHLORIDE 0.9% 10ML FLUSH IV SCH (09:06)
[2017-07-23] MEDS: FoLIC ACID INJ 1 MG in SYRINGE 9.8 ML IV SCH (09:06)
[2017-07-23] MEDS: PANTOprazole INJ 40 MG in SYRINGE 0 ML IV SCH (09:06)
[2017-07-23] MEDS: DOCUSATE SODIUM 100 MG CAP PO SCH ×2 (09:08→20:00)
[2017-07-23] MEDS: FLUTICASONE PROPIONATE NA SPR 16 GM BTL NAE SCH (09:08)
[2017-07-23] MEDS: ALBUTEROL HFA 8 GM INHALER INH SCH ×4 (09:08→20:00)
[2017-07-23] MEDS: NYSTATIN SUSP 500,000 U/5 ML UDC PO SCH ×4 (09:08→20:00)
[2017-07-23] MEDS: BOOST BREEZE NUTRITION DRINK 1 BOX PO SCH ×2 (09:08→17:00)
[2017-07-23] MEDS: POT PHOSPHATE MONOBASIC W/ SOD TAB PO SCH ×4 (09:09→20:00)
[2017-07-23] MEDS: LIDODERM (LIDOCAINE) PATCH 5% TD SCH (09:10)
[2017-07-23] MEDS: INSULIN ASPART 100 UNITS/ML 3 ML PEN SC SCH ×4 (09:10→20:37)
[2017-07-23] MEDS: ACETAMINOPHEN 500 MG TAB PO PRN ×2 (09:13→20:12)
[2017-07-23] MEDS: CEROVITE ADV FORMULA TAB PO SCH (09:14)
--- NOTE | 2017-07-23 11:21 | Family Medicine Progress Note ---
Progress Note Date of Service Jul 23, 2017. Subjective Pt evaluation today including: conversation w/ patient, conversation w/ family , physical exam, chart review, lab review, review of studies, review of inpatient medication list Pain: denies PO Intake: adequate Voiding: no voiding problems Constitutional: + weakness, No fever, No chills Respiratory: No cough, No shortness of breath Cardiovascular: + edema, No chest pain Abdomen: No pain, No nausea, No vomiting Female : No dysuria, No urinary frequency, No hematuria Heme: + problem reported (Lymphoma) Endo: + fatigue Skin: No rash, No itch Medications Current Inpatient Medications Medications (Trade) Dose Ordered Sig/[place] Route Start Time Stop Time Status Last Admin Dose Admin Zolpidem Tartrate (Ambien Tab) 5 mg HSZ PRN PO 07/11/17 03:30 08/10/17 03:29 Ondansetron HCl (Zofran Inj) 4 mg Q6H PRN IV 07/11/17 03:30 08/10/17 03:29 07/23/17 09:01 4 MG Acetaminophen (Tylenol Tab) 500 mg Q4 PRN PO 07/11/17 05:00 08/10/17 04:59 07/23/17 09:13 500 MG Albuterol (Ventolin Hfa Inhaler) 2 puffs QID INH 07/11/17 08:00 08/10/17 07:59 07/15/17 22:12 2 PUFFS Allopurinol (Zyloprim Tab) 200 mg QPM PO 07/11/17 21:00 08/10/17 20:59 07/22/17 18:50 200 MG Calcium Carbonate (Tums Chew Tab) 500 mg Q4 PRN PO 07/11/17 05:00 08/10/17 04:59 Docusate Sodium (coLACE CAP) 100 mg AMHS PO 07/11/17 08:00 08/10/17 07:59 07/15/17 22:11 100 MG Dronabinol (Marinol Cap) 2.5 mg QAM PO 07/11/17 08:00 08/10/17 07:59 07/23/17 09:04 2.5 MG Fentanyl (Duragesic Patch) 25 mcg Q72H TD 07/11/17 06:00 07/25/17 05:59 07/23/17 06:26 25 MCG Fluticasone Propionate (Flonase Nasal [place]) 2 sprays DAILY VIGNESH 07/11/17 08:00 08/10/17 07:59 07/13/17 08:11 2 SPRAYS Heparin Sodium (Porcine) (Heparin 10 Unit/ ml 5 ml Flush) 5 ml DAILY FLUSH 07/11/17 08:00 08/10/17 07:59 07/23/17 07:29 10 ML Lidocaine (Lidoderm Patch 5%) 1 patch QAM TD 07/11/17 08:00 08/10/17 07:59 07/18/17 09:39 1 PATCH Losartan Potassium (coZAAR TAB) 100 mg DAILY PO 07/11/17 08:00 08/10/17 07:59 07/23/17 09:05 100 MG Meclizine HCl (Antivert Tab) 25 mg TID PRN PO 07/11/17 05:00 08/10/17 04:59 07/13/17 17:48 25 MG Multivitamins/ Minerals (Multivitamin W/ Minerals Tab) 1 tab DAILY PO 07/11/17 08:00 08/10/17 07:59 07/22/17 08:39 1 TAB Nitrofurantoin Macrocrystals (Macrobid Cap) 100 mg BID PO 07/11/17 08:00 08/10/17 07:59 Future Hold 07/14/17 22:05 100 MG Ondansetron HCl (Zofran Tab) 4 mg Q6 PRN PO 07/11/17 05:00 08/10/17 04:59 Oxybutynin Chloride (Ditropan-Xl Tab) 10 mg QAM PO 07/11/17 08:00 08/10/17 07:59 07/23/17 09:05 10 MG Potassium/ Phosphorus/Sodium (Phospha 250 Neutral 155-852-130 Mg) 1 tab QID PO 07/11/17 08:00 08/10/17 07:59 07/22/17 08:39 1 TAB Potassium Chloride (Klor-Con Tab) 40 meq DAILY PO 07/11/17 08:00 08/10/17 07:59 07/22/17 08:38 40 MEQ Prednisone (PredniSONE TAB) 50 mg DAILY PO 07/11/17 08:00 08/10/17 07:59 Future Hold 07/12/17 08:05 50 MG Prochlorperazine (Compazine Supp) 25 mg Q6H PRN [place] 07/11/17 05:00 08/10/17 04:59 Senna/Docusate Sodium (Senokot S Tab) 1 tab Q24H PRN PO 07/11/17 05:00 08/10/17 04:59 Sitagliptin Phosphate (Januvia Tab) 100 mg QAM PO 07/11/17 08:00 08/10/17 07:59 Future Hold 07/15/17 10:03 100 MG Sodium Chloride (Sodium Chloride 0.9% 10 ml Flush) 10 ml DAILY IV 07/11/17 08:00 08/10/17 07:59 07/23/17 09:06 10 ML Miscellaneous (Fentanyl Patch Remove & Waste) 1 ea Q3D N/A 07/11/17 05:59 08/10/17 05:58 07/23/17 06:29 1 EA Miscellaneous Information (Check Fentanyl Patch Placement) 1 ea QS N/A 07/11/17 08:00 08/10/17 07:59 07/23/17 09:11 1 EA Miscellaneous (Remove Lidoderm Patch) 1 ea DAILY@21 N/A 07/11/17 21:00 08/10/17 20:59 07/18/17 20:41 1 EA Glucose (Glucose 40% Gel) 15-30 GRAMS 15 GRAMS... UD PRN PO 07/12/17 21:45 08/11/17 21:44 Glucose (Glucose Chew Tab) 4-8 Tablets 4 Tabl... UD PRN PO 07/12/17 21:45 08/11/17 21:44 Dextrose (Dextrose 50% 50ML Syringe) 25-50ML OF 50% DW IV FOR... UD PRN IV 07/12/17 21:45 08/11/17 21:44 Glucagon (Glucagon Inj) 1 mg UD PRN SQ 07/12/17 21:45 08/11/17 21:44 Magnesium Hydroxide (Milk Of Magnesia Susp) 30 ml Q6H PRN PO 07/13/17 18:45 08/12/17 18:44 07/13/17 23:59 30 ML Polyethylene (Miralax Powder Packet) 17 gm DAILY PRN PO 07/13/17 18:45 08/12/17 18:44 Diphenhydramine HCl (Benadryl Inj) 12.5 mg Q6H PRN IV 07/14/17 20:30 08/13/17 20:29 Filgrastim (Neupogen Sq) 480 mcg DAILY SC 07/15/17 13:00 08/14/17 12:59 Future Hold 07/20/17 08:04 480 MCG Pantoprazole Sodium 40 mg/ Syringe 10 ml @ 5 mls/min DAILY@2100 IV 07/15/17 21:00 08/14/17 20:59 07/23/17 09:06 5 MLS/MIN Folic Acid 1 mg/ Syringe 10 ml @ 5 mls/min DAILY IV 07/16/17 09:00 08/15/17 08:59 07/23/17 09:06 5 MLS/MIN Nystatin (Mycostatin Susp) 5 ml QID PO 07/17/17 13:00 07/27/17 12:59 07/20/17 20:38 5 ML Insulin Aspart (novoLOG ASPART) SLIDING SCALE G... ACHS SC 07/17/17 22:00 08/16/17 21:59 07/22/17 16:30 2 UNITS Enteral Nutritional Formula (Boost Breeze Nutritional Drink) 1 box BIDM PO 07/18/17 16:45 08/17/17 16:44 07/18/17 17:25 1 BOX Heparin Sodium (Porcine) (Heparin 10 Unit/ ml 5 ml Flush) 5 ml PRN PRN FLUSH 07/20/17 21:15 08/19/17 21:14 07/23/17 09:01 5 ML Acetaminophen/ Hydrocodone Bitart ([place] 5/325 Tab) 1 tab Q6H PRN PO 07/22/17 19:15 08/05/17 19:14 Objective Vital Signs Date Time Temp Pulse Resp B/P (MAP) Pulse Ox O2 Delivery O2 Flow Rate FiO2 07/23/17 11:43 36.4 79 20 119/73 (88) 94 Room Air 07/23/17 09:00 Room Air 07/23/17 08:13 36.6 76 20 162/79 (106) 95 Room Air 07/23/17 03:50 36.5 77 18 169/83 (111) 96 Room Air 07/23/17 00:13 36.4 77 18 162/84 (110) 96 Room Air 07/23/17 00:00 Room Air 07/22/17 19:35 36.8 78 18 153/84 (107) 96 Room Air 07/22/17 17:30 Room Air 07/22/17 15:15 36.5 79 18 138/80 (99) 96 Room Air Physical Exam Notes: GENERAL: alert, awake sitting in chair obese , NAD EYE EXAM: normal conjunctiva, PERRL and EOM's grossly intact NECK: supple, no nuchal rigidity, no adenopathy, non-tender LUNGS: Clear to auscultation. Normal chest wall mechanics HEART: no murmurs, S1 normal and S2 normal ABDOMEN: abdomen soft, non-tender, normo-active bowel sounds, no masses, no rebound or guarding. UPPER EXTREMITIES: upper extremities are grossly normal. LOWER EXTREMITIES: 1 + LE edema Bilaterally NEURO EXAM: AOx3, cranial nerves II-XII grossly intact, normal speech Laboratory Results Results Past 24 Hours Test 07/22/17 16:45 07/22/17 20:20 07/23/17 07:24 07/23/17 07:45 Range/Units Bedside Glucose 149 130 89 70-90 mg/dl White Blood Count 8.60 4.8-10.8 K/uL Red Blood Count 3.11 4.2-5.4 M/uL Hemoglobin 9.5 12.0-16.0 g/dL Hematocrit 28.4 37-47 % Mean Corpuscular Volume 91.3 80-100 fL Mean Corpuscular Hemoglobin 30.5 25-34 pg Mean Corpuscular Hemoglobin Concent 33.5 32-36 g/dl Platelet Count 26 130-400 K/uL Mean Platelet Volume 8.8 7.4-10.4 fL RDW Standard Deviation 53.9 36.4-46.3 fL RDW Coefficient of Variation 16.3 11.5-14.5 % Nucleated RBC Absolute Count (auto) 0.07 0-0 K/uL Neutrophils % (Manual) 68.1 % Lymphocytes % (Manual) 10.6 % Monocytes % (Manual) 16.8 % Metamyelocytes % 1.8 % Promyelocytes % 2.7 % Nucleated Red Blood Cells % 0.8 % Neutrophils # (Manual) 5.86 1.4-6.5 K/uL Total Absolute Neutrophils 5.86 1.4-6.5 K/uL Lymphocytes # (Manual) 0.91 1.2-3.4 K/uL Total Absolute Lymphocytes 0.91 1.2-3.4 K/uL Monocytes # (Manual) 1.44 0.11-0.59 K/uL Metamyelocytes # 0.15 0-0 K/uL Promyelocytes # 0.23 0-0 K/uL Toxic Granulation 2+ Dohle Bodies 2+ Sodium Level 143 136-145 mmol/L Potassium Level 3.5 3.5-5.1 mmol/L Chloride Level 107 98-107 mmol/L Carbon Dioxide Level 29 21-32 mmol/L Anion Gap 7.0 3-11 mmol/L Blood Urea Nitrogen 7 7-18 mg/dl Creatinine 0.78 0.60-1.20 mg/dl Est Creatinine Clear Calc Drug Dose 71.6 ml/min Estimated GFR () 86.2 Estimated GFR (Non- 74.4 BUN/Creatinine Ratio 8.8 10-20 Random Glucose 90 70-99 mg/dl Calcium Level 7.2 8.5-10.1 mg/dl Test 07/23/17 11:25 Range/Units Bedside Glucose 138 70-90 mg/dl Assessment and Plan 77 yo F w/ hx of Lymphoma on chemo managed at [place], hx of multidrug resistant UTI, Rt sided staghorn calculi, HTN, DM, p/w hx of Mechanical fall, found to be pancytopenic with Neutrophil Ct of .2 on arrival, Hb 7.8, Plt 19 on admission likely secondary to chemo. Nausea - Unclear etiology. No meds that could cause. Recently treated for thrush. ? sec to fentanyl. - Using prn zofran - Reassess in am Pancytopenia: likely 2/2 BM suppression in setting of Chemotherapy - WBC count improved, 8.6<--8.07 Hb 9.5<--9.5 - S/p 3 units PRBC transfusion, 6 units platelet transfusion -Filgrastim d/c'd due to improved ANC - Fecal occult blood positive but h/h stable Diarrhea - improved - C diff testing negative. LE Edema - ? from fluid overload vs chronic edema - s/p 40 mg Lasix 07/18 - No further concerns Multidrug resistant UTI with right-sided staghorn calculus: - no urinary symptoms - UA: 2+ occult blood , pos.nitrite, Urine cx >3 org - ertapenem and vancomycin remain D/C'd - acyclovir and Diflucan remain D/C'd Chronic pain - Continue fentanyl patch - norco decreased to only prn due to oversedation Hypoxia - saturating well on rm air - O2 per protocol Diabetes type 2: - Glucose controlled - Hemoglobin A1c at 6.5 - Continue sitagliptin - ISS Neurogenic bladder: - Cont. oxybutynin Mechanical fall with head injury: - CT head/ neck unremarkable - Continue pain mgmt Lymphoma: - chemotherapy management per Dr. Vu HTN - BP elevated , correlated with anxiety per nurse -Continue losartan -continue to monitor Back pain: - Continue pain management Vertigo: - Continue meclizine - Fall precautions DVT prophylaxis: SCDs No anticoagulation due to thrombocytopenia Disposition: Awaiting placement - [facility] refuse placement Patient prefers Home health with [facility] has not accepted as of yet Continued [facility] stay due to: home environment unsafe for pt Discharge planning: uncertain Resident Tracking Resident Involvement: Resident Care Provided Care Provided: Adult Hospital Medicine Reviewed: Pt Seen/Exam by Me History c/o nausea for last 2 days. more alert Constitutional: denies: fever Respiratory: negative: short of breath Cardiovascular: denies chest pain General Appearance: no apparent distress (sitting in chair) Respiratory: lungs clear, no respiratory distress Cardiovascular: regular rate, rhythm Gastrointestinal: soft Neurologic/Psychiatric: alert, oriented x 3 Skin Characteristics: warm/dry Assessment/Plan Resident Physician Supervision Note: I was present with Dr. Centeno in bedside. I verified the samson history and physical, reviewed labs and image studies, discussed the case with the resident and agree with the findings and care plan.
[2017-07-23] MEDS: ALLOPURINOL 100 MG TAB PO SCH (20:36)
[2017-07-24] MEDS: HYDROCODONE/ACETAMOPHEN 5/325MG TAB PO PRN ×2 (00:17→08:20)
[2017-07-24 03:45] VITALS: BP 178/83; PULSE 90; TEMP 36.5; O2SAT 98
[2017-07-24] MEDS: LIDODERM (LIDOCAINE) PATCH 5% TD SCH (06:47)
[2017-07-24] MEDS: BOOST BREEZE NUTRITION DRINK 1 BOX PO SCH (06:48)
[2017-07-24] MEDS: ALBUTEROL HFA 8 GM INHALER INH SCH ×2 (06:48→11:32)
[2017-07-24] MEDS: POT PHOSPHATE MONOBASIC W/ SOD TAB PO SCH ×2 (06:49→11:32)
[2017-07-24] MEDS: DOCUSATE SODIUM 100 MG CAP PO SCH (06:50)
[2017-07-24 07:50] VITALS: BP 143/74; PULSE 79; TEMP 36.5; O2SAT 99
[2017-07-24] MEDS: SODIUM CHLORIDE 0.9% 10ML FLUSH IV SCH (07:51)
[2017-07-24] MEDS: DRONABINOL 2.5 MG CAP PO SCH (07:51)
[2017-07-24] MEDS: ONDANSETRON INJ 2 MG/ML 2 ML VIAL IV PRN (07:51)
[2017-07-24] MEDS: POTASSIUM CHLORIDE 20 MEQ TABCR PO SCH (07:51)
[2017-07-24] MEDS: FoLIC ACID INJ 1 MG in SYRINGE 9.8 ML IV SCH (07:51)
[2017-07-24] MEDS: OXYBUTYNIN CHLORIDE 5 MG TABCR PO SCH (07:52)
[2017-07-24] MEDS: FLUTICASONE PROPIONATE NA SPR 16 GM BTL NAE SCH (07:52)
[2017-07-24] MEDS: LOSARTAN POTASSIUM 50 MG TAB PO SCH (07:52)
[2017-07-24] MEDS: CEROVITE ADV FORMULA TAB PO SCH (07:53)
[2017-07-24] MEDS: NYSTATIN SUSP 500,000 U/5 ML UDC PO SCH ×2 (07:53→11:32)
[2017-07-24] MEDS: CHECK FENTANYL PATCH PLACEMENT SCH ×2 (08:20)
[2017-07-24] MEDS: INSULIN ASPART 100 UNITS/ML 3 ML PEN SC SCH ×2 (08:20→12:10)
[2017-07-24 08:33] LABS: HEMATOCRIT 31.5 % (37-47); MEAN CELL VOLUME 91.6 fL (80-100); MEAN CORPUSCULAR HEMOGLOBIN 30.5 pg (25-34); MEAN CORPUSCULAR HGB CONC 33.3 g/dl (32-36); MEAN PLATELET VOLUME 10.9 fL (7.4-10.4); PLATELET COUNT 47 K/uL (130-400); RED BLOOD COUNT 3.44 M/uL (4.2-5.4); WHITE BLOOD COUNT 8.14 K/uL (4.8-10.8)
[2017-07-24 09:14] LABS: BUN/CREATININE RATIO 6.4 (10-20); CALCIUM 7.6 mg/dl (8.5-10.1); CREATININE 0.83 mg/dl (0.60-1.20); POTASSIUM 3.4 mmol/L (3.5-5.1)
[2017-07-24 09:36] LABS: COMPLETE YES; DOHLE BODIES 2+; LARGE PLATELETS 1+; LYMPH ABS # 0.95 K/uL (1.2-3.4); LYMPHOCYTE % 11.7 %; META ABS # 0.07 K/uL (0-0); METAMYELOCYTE % 0.9 %; NEUTROPHILS % 80.2 %; TOXIC GRANULATION 3+
--- NOTE | 2017-07-24 10:52 | Family Medicine Progress Note ---
Progress Note Date of Service Jul 24, 2017. Resident Tracking Resident Involvement: Resident Care Provided Care Provided: Adult Hospital Medicine
[2017-07-24 11:50] VITALS: BP 140/74; PULSE 83; TEMP 36.6; O2SAT 97
[2017-07-24] MEDS ORDERED: ONDA8TAB62 SL (11:58)
[2017-07-24] MEDS ORDERED: MRN/25 PO (11:58)
--- NOTE | 2017-07-24 12:06 | Discharge Instructions ---
Discharge Instructions Date of Service Jul 24, 2017. Admission Reason for Admission: Head Injury, Lymphoma, Neutropenia Discharge Discharge Diagnosis / Problem: Neutropenia, Thrombocytopenia, Lymphoma Discharge Goals Goal(s): Decrease discomfort, Improve function, Increase independence, Improve disease control, Improve nutritional status, Learn about illness, Diagnostic testing, Therapeutic intervention, Screening, Prevent Disease Progression, Specific goals Activity Recommendations Activity Limitations: resume your previous activity . Instructions / Follow-Up Instructions / Follow-Up -Please Follow up with Dr. Urbina within 1-2wks -Take medication as prescribed When to call your healthcare provider: Call your provider right away if you have any of the following symptoms: -Fever of 100.4F (38C) or higher, or as advised by your provider -Signs of an infection, such as an area with redness, pain, swelling, warmth, and drainage -A cough, or coughing up yellow or green mucus -Wheezing or shortness of breath -Bleeding -Headache, confusion, trouble focusing, or memory loss -Feeling dizzy or lightheaded -Fast or irregular heartbeat -Rash or itchy, raised, red areas on your skin, called hives -Yellowish skin or whites of the eyes, called jaundice -New lumps under your arms, on or near your neck, or on or near your groin Call 911 or get emergency help if you have: -Heavy bleeding -Trouble breathing, cough, and chest pain Current Hospital Diet Patient's current hospital diet: Low Sodium Diet (2gm Na), Diabetes Type 2 Diet Discharge Diet Recommended Diet: Regular Diet Pending Studies Studies pending at discharge: no Laboratory Results Hemoglobin A1c Test 07/16/17 06:24 Range/Units Estimated Average Glucose 140 mg/dl Hemoglobin A1c 6.5 H 4.5-5.6 % Medical Emergencies . Who to Call and When: Medical Emergencies: If at any time you feel your situation is an emergency, please call 911 immediately. . Non-Emergent Contact Non-Emergency issues call your: Primary Care Provider, Oncologist Call Non-Emergent contact if: you have a fever, temperature is above 100.5, your pain is not controlled, your pain is worsening, your pain is unusual for you, your pain is concerning you, you have any medication questions . . "Provider Documentation" section prepared by Ziyad Centeno. . VTE Core Measure Inpt VTE Proph given/why not?: SCD's
[2017-07-24 12:11] VITALS: BP 140/74; PULSE 83; TEMP 36.6; O2SAT 97
--- NOTE | 2017-07-24 20:17 | Discharge Summary ---
Discharge Summary Date of Service Jul 24, 2017. (Ziyad Centeno MD) Discharge Summary Admission Date: Jul 11, 2017 at 03:25 Discharge Date: Jul 24, 2017 Discharge Disposition: Home with services Principal Diagnosis: Pancytopenia, Multidrug resistant UTI Problems/Secondary Diagnoses: Lymphoma Hx Fall Procedures: HEAD WITHOUT CONTRAST (CT) CT DOSE: HISTORY: Trauma head trauma. TECHNIQUE: Multiaxial CT images of the head were performed without the use of intravenous contrast. A dose lowering technique was utilized adhering to the principles of ALARA. Comparison: 04/21/2017 Findings: The paranasal sinuses and mastoid air cells are clear. The calvarium and skull base are intact. The ventricles and sulci are within normal limits. There is no mass, hematoma, midline shift, or acute infarct. Impression: No acute intracranial abnormality. CT SCAN OF THE CERVICAL SPINE CLINICAL HISTORY: Head injury. COMPARISON STUDY: No priors. TECHNIQUE: CT scan of the cervical spine is performed from the skull base to the upper thoracic spine. Images are reviewed in the axial, sagittal, and coronal planes. IV contrast was not administered for this examination. A dose lowering technique was utilized adhering to the principles of ALARA. CT DOSE: 983.12 mGy.cm FINDINGS: Skeletal structures: The skeletal structures are osteopenic. There is no evidence of fracture or subluxation involving the cervical spine. Vertebral body height and alignment are maintained. The odontoid process and lateral masses are intact. The atlantoaxial articulation is preserved noting advanced productive degenerative change. The spinous processes appear intact. There is mild to moderate multilevel cervical spondylosis. Uncovertebral and facet arthropathy are seen at several levels. Intervertebral discs: There is mild disc space narrowing seen in the mid to lower cervical region. Central canal: Large posterior disc osteophyte complexes at C4-C5, C5-C6, and C6-C7 likely contribute to acquired compromise of the central canal. Soft tissues: The prevertebral and paraspinous soft tissues are within normal limits. A right internal jugular central venous catheter is in place. Calvarium: The visualized calvarium at the skull base appears intact. Brain parenchyma: Partially visualized brain parenchyma the skull base is within normal limits noting age-related involutional change. Sinuses and mastoids: The visualized paranasal sinuses are clear. The mastoid air cells are well pneumatized. Lung apices: Clear as visualized. IMPRESSION: 1. There is no evidence of fracture or subluxation involving the cervical spine. 2. Osteopenia and spondylotic change as above. KUB CLINICAL HISTORY: abdominal pain, constipated, pancytopenia ?obstruction, bleeding pain COMPARISON STUDY: No previous studies for comparison. FINDINGS: Mild nonobstructive ileus. Inferior vena caval filter in position overlying the upper lumbar region. Left ureteral stent in position. 1.3 cm calcification left renal pelvis or left ureteral pelvic junction. 1.3 cm lower pole left renal calcifications. No significant right renal calcifications. IMPRESSION: 1. Mild nonobstructive ileus. 2. Left ureteral stent in good position. 3. Calcifications as described left ureteropelvic junction as well as lower pole left kidney. ] ABD/PELVIS IV AND ORAL CONT CLINICAL HISTORY: 77 years-old Female presenting with abdominal pain, pancytopenia, ?colitis. TECHNIQUE: Multidetector CT of the abdomen and pelvis was performed after the administration of intravenous contrast. IV contrast: 93 mL of Optiray 320. A dose lowering technique was used consistent with the principles of ALARA (as low as reasonably achievable). COMPARISON: 07/14/2017. CT DOSE (mGy.cm): The estimated cumulative dose is 1014.35 mGycm. FINDINGS: [facility] topogram: IVC filter and left ureteral stent noted. A right internal jugular catheter terminates in the right atrium. Lung bases: Dependent opacities at the lung bases, likely atelectasis or scarring. 3 mm solid pulmonary nodule in the right middle lobe (series 5 image 11). Normal heart size. Coronary artery calcification. Liver: Normal morphology. No liver lesion. Patent hepatic vasculature. Biliary: No intrahepatic or extrahepatic biliary ductal dilatation. Gallbladder surgically absent. Pancreas: Mild parenchymal atrophy. Spleen: Normal. Adrenal glands: Normal. Kidneys and ureters: Left ureteral stent in place terminating in a upper pole calyx and the urinary bladder. Diffuse urothelial thickening and enhancement is evident in the left ureter and left renal collecting system. The ureteral stent adequately decompresses the left renal collecting system. Diffuse parenchymal atrophy of the left kidney evident. Large calculus at the atrophic and scarred lower pole as well as at the left ureteropelvic junction. These are unchanged in position from prior exam. Right kidney normal. No hydronephrosis. Right ureter normal. Bladder: Normal. Pelvic organs: Uterus and ovaries normal. Bowel: Normal appendix. No bowel obstruction. Small hiatal hernia. Peritoneal cavity: No free fluid or intraperitoneal gas. Vasculature: Atherosclerosis of the normal caliber abdominal aorta. IVC patent. Infrarenal IVC filter in place. Lymph nodes: No enlarged lymph nodes in the abdomen or pelvis. Abdominal wall: Fat-containing ventral hernia in the lower abdomen. No associated inflammatory change or fluid to suggest strangulation. Relatively wide neck. Musculoskeletal: Degenerative changes of the spine. Degenerative changes of the symphysis pubis and sacroiliac joints. Endplate changes of L1. Osteopenia. IMPRESSION: 1. Extensive urothelial thickening and enhancement of the left renal collecting system and left ureter. This may in part be related to the presence of the ureteral stent, however, infection is also possible. Correlate with urinalysis. 2. Unchanged position of the large left ureteropelvic junction calculus and a left lower pole calculus. The left ureteral stent adequately decompresses the left renal collecting system. 3. Chronic atrophy and scarring of the left kidney. CHEST ONE VIEW PORTABLE CLINICAL HISTORY: 77 years-old Female presenting with fever. TECHNIQUE: Portable upright AP view of the chest was obtained. COMPARISON: 06/24/2017. FINDINGS: Double lumen tunneled right internal jugular catheter likely terminates in the superior vena cava. Atherosclerosis of the aortic arch. Slight interval decreased prominence of the cardiac silhouette. Prominent pulmonary vasculature, unchanged. Apparent increased prominence of apparent right mid to lower lung paramediastinal opacity. Bandlike opacity in the mid lungs. Osseous structures normal. Upper abdomen normal. IMPRESSION: 1. Suggestion of right mid to lower lung paramediastinal opacity, which could represent an infiltrate and would be concerning for pneumonia. Further confirmation with chest CT to be considered as clinically warranted. 2. Bilateral midlung atelectasis unchanged. SINGLE VIEW CHEST CLINICAL HISTORY: Lower extremity edema. FINDINGS: An AP, portable, upright chest radiograph is compared to study dated 07/14/2017. The examination is degraded by portable technique, large body habitus, and patient rotation. The right internal jugular central venous catheter is unchanged in position. The heart is top normal for projection and there is atherosclerotic calcification of the thoracic aorta. The pulmonary vasculature is noncongested. Chronic interstitial thickening is unchanged. There is mild elevation of the right hemidiaphragm and bibasilar atelectasis. No airspace consolidation is seen typical for pneumonia and there is no pleural effusion. No pneumothorax is seen. The skeletal structures are osteopenic. The bony thorax is grossly intact. IMPRESSION: No acute cardiopulmonary abnormality. Consultations: Heme/Onc Infectious Disease (Ziyad Centeno MD) Medication Reconciliation New Medications: Ondansetron Odt (Zofran Odt) 8 Mg Soltab 8 MG SL Q6H PRN for Nausea for 10 Days, #40 TAB Changed Medications: Dronabinol (Marinol) 2.5 Mg Cap 2.5 MG PO BID, #14 TAB 0 Refills (Changed from: QAM) Continued Medications: Acetaminophen (Tylenol) 500 Mg Tab 500 MG PO Q4 PRN for MILD-MOD PAIN USE FOR PAIN RATED 1-7 Albuterol Hfa (Ventolin Hfa) 200 Puffs/69502 Mcg Aers 2 PUFFS INH QID PRN for Wheezing Albuterol Hfa (Ventolin Hfa) 200 Puffs/08445 Mcg Aers 2 PUFFS INH QID Allopurinol (Zyloprim) 100 Mg Tab 200 MG PO QPM TWO 100 MG TABLETS Calcium Carbonate (Tums) 500 Mg Chew 500 MG PO Q4 PRN for Indigestion Docusate Sodium (Docusate Sodium) 100 Mg Cap 100 MG PO AMHS Fentanyl (Duragesic) 25 Mcg/Hr Dis 25 MCG TOP Q72H, #10 PATCH 0 Refills Fluticasone Propionate (Nasal) (Flonase Allergy Relief) 50 Mcg/Act Spr 2 SPRAYS VIGNESH DAILY Folic Acid (Folic Acid) 1 Mg Tab 1 MG PO QAM for 30 Days, #30 TAB 0 Refills Furosemide (Lasix) 20 Mg Tab 20 MG PO QAM Heparin Sodium (Porcine) Lock (Heparin Lock Flush) 10 Unit/Ml Inj 5 ML IVF DAILY PICC LINE Hydrocodone/Acetaminophen 5MG/325MG (Bethel 5MG/325MG) Tab 1 TABLET PO Q4 PRN for Pain, #30 TAB 0 Refills PRN PAIN Hydrocodone/Acetaminophen 5MG/325MG (Bethel 5MG/325MG) Tab 1 TAB PO TID Lidocaine (Lidocaine) 1 Patch Tdsy 1 PATCH TD QAM, #30 PATCH 0 Refills apply to back for 12 hours, remove for 12 hours Losartan Potassium (Cozaar) 100 Mg Tab 100 MG PO DAILY Meclizine Hcl (Meclizine Hcl) 25 Mg Tab 25 MG PO TID PRN for VERTIGO Multivitamins/Minerals (Mvi With Minerals) Tab 1 TAB PO DAILY, TAB Ondansetron Hcl (Zofran) 4 Mg Tab 4 MG PO Q6 PRN for Nausea, TAB Oxybutynin Chloride Er (Ditropan Xl) 10 Mg Tab 10 MG PO QAM, TAB Pantoprazole (Protonix) 40 Mg Tab 40 MG PO DAILY Pot Phosphate Monobasic W/ Sod (Phospha 250 Neutral) 1 Tab Tab 1 TAB PO QID for 5 Days, #20 TAB 0 Refills Potassium Ext Rel (Klor-Con) 20 Meq Tabcr 40 MEQ PO DAILY Prochlorperazine (Compazine Supp) 25 Mg Supp 25 MG HI Q6H PRN for Nausea or Vomiting, #30 SUPP 0 Refills Sennosides-Docusate Sodium (Senna S) 1 Tab Tab 1 TABS PO Q24H PRN for Constipation Sitagliptin Phosphate (Januvia) 100 Mg Tab 100 MG PO QAM Sodium Chloride (Saline Flush) 10 Ml Inj 10 ML IVF DAILY USE FOR CHEST FITCH CATH PATENCY Discontinued Medications: Acyclovir (Zovirax) 200 Mg Cap 200 MG PO TID, #90 CAP Fluconazole (Fluconazole) 100 Mg Tab 100 MG PO QAM Nitrofurantoin Monohyd Macro (Macrobid) 100 Mg Cap 1 CAP PO BID for 30 Days, #60 TAB 5 Refills begin the AM of 07/06/2017 Ondansetron Hcl (Zofran) 8 Mg Tab 8 MG PO BID Prednisone (Prednisone) 50 Mg Tab 50 MG PO DAILY for 5 Days POST CHEMO TREATMENT FOR 5 DAYS..GIVE IN AM Sulfa/Trimethoprim (Bactrim Ds 800MG/160MG) Tab 1 TAB PO 2XWK, #6 TAB EVERY TUESDAY AND TUESDAY Discharge Exam GENERAL: alert, awake, sitting in chair, obese , NAD EYE EXAM: normal conjunctiva, PERRL and EOM's grossly intact NECK: supple, no nuchal rigidity, no adenopathy, non-tender LUNGS: Clear to auscultation. Normal chest wall mechanics HEART: no murmurs, S1 normal and S2 normal ABDOMEN: abdomen soft, non-tender, normo-active bowel sounds, no masses, no rebound or guarding. UPPER EXTREMITIES: upper extremities are grossly normal. LOWER EXTREMITIES: 2 + pedal edema Clif . NEURO EXAM: AOx3, cranial nerves II-XII grossly intact, normal speech (Ziyad Centeno MD) c/o being nauseous. not new - has had since her diagnosis of lymphoma Review of Systems: Constitutional: No fever Respiratory: No shortness of breath Cardiovascular: No chest pain Physical Exam: General Appearance: no apparent distress Respiratory/Chest: lungs clear, no respiratory distress Cardiovascular: regular rate, rhythm Neurologic/Psychiatric: alert, oriented x 3 Skin: warm/dry (Goldie Villegas M.D.) Hospital Course H&P This is a 77 yo f suffering from B cell lymphoma and is currently undergoing chemotherapy for treatment with her last treatment being four days prior. The patient was originally a transfer for MDRO UTI with right sided staghorn canaliculus in march of 2017 where she had profound leukocytosis and was diagnosed with lymphoma. She was transferred to [place] where her chemotherapy regimen was initiated. After every chemo treatment the patient has been suffering from profound pancytopenia requiring transfusions. She has been hospitalized many time for this and is currently discharged and staying at [facility]. This evening she was walking to the bathroom with her walker when she fell forward and bumped her head. She was transferred to the ED for evaluation. CT H&N were unremarkable however her PLT count is 19 and hgb is 7.8. After discussing admission versus close follow up in [facility] it was decided she would be admitted for further care in house considering her history. Course Pancytopenia secondary to chemotherapy, FOBT negative - Heme Onc Consulted - s/p 5 units of pRBC,s/p 7 units of plt in total durng admission -started on filgrastim - By discharge clinically improved, Hb at 10.[address] 8.6 (lowest .04) Absolute Neutrophil Ct 6.543 on d/c ( as low as .00-.01) Lymphoma - chemotherapy recieved d at [facility] - Heme/ onc was consulted, - started ppx for immunosuppression , multiple MDRO infections: fluconzaole, bactrim, acyclovir and nitrofurantoin (d/c'd during admission after Abs. Neutophil ct resolved) Abdominal pain - KUB showed mild nonobstructive ileus. - CT abdomen:extensive urothelial thickening and enhancement of the left renal collecting system and left ureter - abdo pain eventually resolved Mechanical fall, s/p head injury in the presence of thrombocytopenia - CT of head and cervical spine was WNL Diabetes - BSG AC HS, - continue sitagliptin - on SSI Multidrug resistant UTI with staghorn calculit - Started on Zosyn, Ertapenem - d/c'd during admission HTN - continue losartan Neurogenic Bladder - continue oxybutinin Bilateral LE edema - Patient has significant b/l LE edema. - started on Lasix Back pain/ left hip pain; chronic - used fentanyl and Bethel Vertigo - continued meclizine DVT Prophylaxis - h/o dvt but pancytopenia; SCD Disposition: Discharged with Home Health Total Time Spent: Less than 30 minutes This includes examination of the patient, discharge planning, medication reconciliation, and communication with other providers. (Ziyad Centeno MD) Resident Physician Supervision Note: I was present with Dr. Centeno in bedside. I verified the samson history and physical, reviewed labs and image studies, discussed the case with the resident and agree with the findings and care plan. Chronic nausea with decreased appetite since diagnosed with lymphoma- increased zofran and marinol dose Total Time Spent: Greater than 30 minutes (40) (Goldie Villegas M.D.) Discharge Instructions Please refer to the electronic Patient Visit Report (Discharge Instructions) for additional information. (Ziyad Centeno MD) Additional Copies To Galindo Vu MD Resident Tracking Resident Involvement: Resident Care Provided Care Provided: Adult Hospital Medicine (Ziyad Centeno MD)
[2017-07-25] MEDS ORDERED: VALS-58 PO (13:32)
[2017-07-25] MEDS ORDERED: WARF5TAB90 PO (13:32)
--- NOTE | 2017-07-27 10:19 | EDITING REQUIRED CODING QUERY ---
SEPSIS To promote full compliance with coding requirements relating to patient care, physician participation is requested in all cases of truck unloader uncertainty. Please assist us with the question(s) below: In responding to this query, please exercise your independent professional judgement. The fact that a question is asked does not imply that any particular answer is desired or expected. We appreciate your clarification on this issue. Patient admitted with chemotherapy inducted pancytopenia . Patient also has a UTI- multidrug resistant. Some progress notes mention Sepsis. Please document below the diagnosis that you were treating in regards to the drug-resistant UTI. Thanks for your help! Junior Santillan [employer] [facility] ( )Bacteremia (Nonspecific laboratory finding of bacteria in the blood) Specify Organism () Present on Admission () Not present on admission () Unable to clinically determine ( ) Septicemia (Systemic disease associated with the presence of pathogenic microorganisms in the blood): Specify Organism ( ) Present on Admission ( ) Not present on admission ( ) Unable to clinically determine ( ) Sepsis Specify Organism Specify Associated Condition/Diagnosis () Present on Admission () Not present on admission () Unable to clinically determine ( ) Severe Sepsis (Sepsis associated with acute organ dysfunction) Specify Organism Specify Associated Condition/Diagnosis ( ) Present on Admission ( ) Not present on admission ( ) Unable to clinically determine ( ) Septic Shock (Severe sepsis with acute circulatory failure, unexplained by other causes) ( ) Present on Admission ( ) Not present on admission ( ) Unable to clinically determine ( ) Other, patient has:
--- NOTE | 2017-08-09 06:53 | EDITING REQUIRED CODING QUERY ---
SEPSIS To promote full compliance with coding requirements relating to patient care, physician participation is requested in all cases of hospital manager uncertainty. Please assist us with the question(s) below: In responding to this query, please exercise your independent professional judgement. The fact that a question is asked does not imply that any particular answer is desired or expected. We appreciate your clarification on this issue. Throughout the medical record, you have clearly documented a localized infection and your patient has clinical evidence of a generalized sepsis or severe sepsis. The term urosepsis is a nonspecific entity and is coded as an UTI. If the patient has sepsis, severe sepsis, from an urinary source or some other source, please clarify in your response below. The medical record reflects the following clinical - Please check the diagnosis you treated during this inpatient stay. Thank you! CARISSA Lewis CCS ( )Bacteremia (Nonspecific laboratory finding of bacteria in the blood) Specify Organism () Present on Admission () Not present on admission () Unable to clinically determine ( ) Septicemia (Systemic disease associated with the presence of pathogenic microorganisms in the blood): Specify Organism () Present on Admission () Not present on admission () Unable to clinically determine (x ) Sepsis Specify Organism Specify Associated Condition/Diagnosis () Present on Admission () Not present on admission (x) Unable to clinically determine ( ) Severe Sepsis (Sepsis associated with acute organ dysfunction) Specify Organism Specify Associated Condition/Diagnosis () Present on Admission () Not present on admission () Unable to clinically determine ( ) Septic Shock (Severe sepsis with acute circulatory failure, unexplained by other causes) () Present on Admission () Not present on admission () Unable to clinically determine ( ) Other, patient has:
== END 2017-07-24 15:10 | disposition home health service (06) | DRG 808 ==
LOC: EDBD 23:43 → C.EDB 23:45 → C.4E 07-11 03:25 → EDBEDREQ 07-11 03:28 → ENRESERV 07-11 03:51 → C.2E 07-14 18:45 → ENRESERV 07-18 15:55 → C.4E 07-18 16:47
PROVIDERS: ADMIT Hospitalist; ATTEND Family Medicine
DX: D61.810 Antineoplastic chemotherapy induced pancytopenia (principal); A41.9 Sepsis, unspecified organism; E46 Unspecified protein-calorie malnutrition; C85.10 Unspecified B-cell lymphoma, unspecified site; N39.0 Urinary tract infection, site not specified; S09.90XA Unspecified injury of head, initial encounter; Z88.0 Allergy status to penicillin; T45.1X5A Adverse effect of antineoplastic and immunosuppressive drugs, initial encounter; E11.9 Type 2 diabetes mellitus without complications; I10 Essential (primary) hypertension; M70.61 Trochanteric bursitis, right hip; M70.62 Trochanteric bursitis, left hip; N31.9 Neuromuscular dysfunction of bladder, unspecified; Z16.35 Resistance to multiple antimicrobial drugs; R60.0 Localized edema; N20.0 Calculus of kidney; Y93.01 Activity, walking, marching and hiking; R09.02 Hypoxemia; Y92.019 Unspecified place in single-family (private) house as the place of occurrence of the external cause; W18.30XA Fall on same level, unspecified, initial encounter

== ENCOUNTER 2017-07-25 13:12 | Inpatient (IN) | payer MEDICARE, OTHER ==
[~2017-07-25] VITALS: Ht 154.9 cm; Wt 102.1 kg
[~2017-07-25 13:12] MED LIST changes: -ACYC1CAP8 PO; -BACL1TAB PO; -BISA10SU3 PR; -DFL100 PO; -DICY20TA35 PO; -ERTA1INJ IV; +HEPA10IN13 IVF; +MAGNESIUM SULFATE 1GM / D5W 1 GM in PREMIXED IN D5W 100 ML IV SCH; -MOML PO; -NITR1CAP16 PO; +NSF10F IVF; +ONDA8TAB62 SL; +POTA20TA16 PO; -PRED50TA PO; -SULF800T23 PO
[2017-07-25] MEDS ORDERED: WARF5TAB90 PO (13:32)
[2017-07-25] MEDS ORDERED: VALS-58 PO (13:32)
[2017-07-25] MEDS ORDERED: SODIUM CHLORIDE 0.9% 1000ML 500 ML IV STA (13:43)
[2017-07-25] MEDS ORDERED: LOSARTAN POTASSIUM 50 MG TAB PO STA (13:43)
--- NOTE | 2017-07-25 14:05 | DIAGNOSTIC IMAGING REPORT ---
CHEST ONE VIEW PORTABLE HISTORY: EVALUATE ALTERED MENTAL STATUS/WEAKNESS COMPARISON: Chest 07/15/2017. FINDINGS: Low lung volumes. Bilateral linear densities persist. This favors atelectasis or scarring. The heart remains mildly enlarged. There may be a trace left pleural effusion. The upper lung zones are clear. No pneumothorax. Right jugular central venous catheter terminates in the SVC. IMPRESSION: 1. Suspect a trace left pleural effusion. 2. Bilateral linear densities favor subsegmental atelectasis or scarring. This remains unchanged. No new focal lung consolidations. Electronically signed by: Quang Whittaker M.D. 07/25/2017 2:04 PM Dictated Date/Time: 07/25/2017 2:03 PM
[2017-07-25 14:40] LABS: HEMATOCRIT 28.8 % (37-47); MEAN CELL VOLUME 89.7 fL (80-100); MEAN CORPUSCULAR HEMOGLOBIN 30.8 pg (25-34); MEAN CORPUSCULAR HGB CONC 34.4 g/dl (32-36); PLATELET COUNT 71 K/uL (130-400); RED BLOOD COUNT 3.21 M/uL (4.2-5.4); WHITE BLOOD COUNT 10.95 K/uL (4.8-10.8)
--- NOTE | 2017-07-25 14:41 | EMERGENCY ROOM VISIT NOTE ---
History Report prepared by Porfirio: Jordan Mistry Under the Supervision of: Dr. Charlie Mancuso M.D. First contact with patient: 13:34 Chief Complaint: DIARRHEA Stated Complaint: DIARRHEA History of Present Illness The patient is a 77 year old female who presents to the Emergency Room with complaints of intermittent diarrhea starting this morning which is loose with no blood. The patient states that she was recently in the hospital for treatment of lymphoma B, and she was discharged yesterday. She had her last chemo treatment on the , and she was in the hospital on the due to a fall and a UTI, and during this time she did not have any diarrhea or abdominal pain. The patient states that she is not currently on any antibiotics. The patient additionally states that her body feels weak, and her left leg has been giving out. The patient states that she has been taking her medications, and she has never had a history of C Diff. Source of History: patient, family Onset: this morning Position: other (global) Quality: other (diarrhea) Timing: intermittent Associated Symptoms: + weakness, No abdominal pain, No hematochezia Review of Systems See HPI for pertinent positives & negatives. A total of 10 systems reviewed and were otherwise negative. Past Medical & Surgical Medical Problems: (1) E-coli UTI (2) Head injury (3) Leukocytosis (4) Lymphoma (5) Neutropenia (6) Neutropenic fever (7) Weakness Family History No pertinent family history Social History Smoking Status: Never Smoker Drug Use: none Marital Status: Occupation Status: retired Current/Historical Medications Scheduled Albuterol Hfa (Ventolin Hfa), 2 PUFFS INH QID Allopurinol (Zyloprim), 200 MG PO QPM Docusate Sodium (Docusate Sodium), 100 MG PO AMHS Dronabinol (Marinol), 2.5 MG PO BID Fentanyl (Duragesic), 25 MCG TOP Q72H Fluticasone Propionate (Nasal) (Flonase Allergy Relief), 2 SPRAYS VIGNESH DAILY Folic Acid (Folic Acid), 1 MG PO QAM Furosemide (Lasix), 20 MG PO QAM Heparin Sodium (Porcine) Lock (Heparin Lock Flush), 5 ML IVF DAILY Hydrocodone/Acetaminophen 5MG/325MG ([place] 5MG/325MG), 1 TAB PO TID Lidocaine (Lidocaine), 1 PATCH TD QAM Losartan Potassium (Cozaar), 100 MG PO DAILY Multivitamins/Minerals (Mvi With Minerals), 1 TAB PO DAILY Oxybutynin Chloride Er (Ditropan Xl), 10 MG PO QAM Pantoprazole (Protonix), 40 MG PO DAILY Pot Phosphate Monobasic W/ Sod (Phospha 250 Neutral), 1 TAB PO QID Potassium Ext Rel (Klor-Con), 40 MEQ PO DAILY Sitagliptin Phosphate (Januvia), 100 MG PO QAM Sodium Chloride (Saline Flush), 10 ML IVF DAILY Scheduled PRN Acetaminophen (Tylenol), 500 MG PO Q4 PRN for MILD-MOD PAIN Albuterol Hfa (Ventolin Hfa), 2 PUFFS INH QID PRN for Wheezing Calcium Carbonate (Tums), 500 MG PO Q4 PRN for Indigestion Hydrocodone/Acetaminophen 5MG/325MG ([place] 5MG/325MG), 1 TABLET PO Q4 PRN for Pain Meclizine Hcl (Meclizine Hcl), 25 MG PO TID PRN for VERTIGO Ondansetron Odt (Zofran Odt), 8 MG SL Q6H PRN for Nausea Prochlorperazine (Compazine Supp), 25 MG NC Q6H PRN for Nausea or Vomiting Sennosides-Docusate Sodium (Senna S), 1 TABS PO Q24H PRN for Constipation Allergies Coded Allergies: Cephalosporins (Unverified Allergy, Intermediate, BREATHING PROBLEMS, ) Ciprofloxacin (Verified Allergy, Intermediate, RASH, 07/05/17) Phlebitis Penicillins (Verified Allergy, Mild, HIVES, 07/05/17) Physical Exam Vital Signs Date Time Temp Pulse Resp B/P (MAP) Pulse Ox O2 Delivery O2 Flow Rate FiO2 07/25/17 17:35 85 20 177/83 95 Room Air 07/25/17 15:16 82 18 169/73 95 Room Air 07/25/17 13:35 36.6 96 18 168/80 96 Room Air 07/25/17 13:23 99 Physical Exam GENERAL: Patient is in no acute distress. HEENT: Old scalp contusion noted. No cellulitis. Mucous membranes moist. No facial swelling. No facial tenderness on exam. NECK: No stridor, no adenopathy, no meningismus, trachea is midline. LUNGS: Clear to auscultation bilaterally, no wheeze, no rhonchi, breath sounds equal. HEART: Without murmurs gallops or rubs, regular rate and rhythm. ABDOMEN: Soft, nontender, bowel sounds positive, no hernias, no peritonitis. EXTREMITIES: Mild bilateral pedal edema with chronic skin change on the left. No cyanosis, full range of motion of all the joints without pain or difficulty, no signs for acute trauma. NEUROLOGIC: Oriented x 3, no acute motor or sensory deficits, no focal weakness. SKIN: No rash, no jaundice, no diaphoresis. Medical Decision & Procedures ER Provider Diagnostic Interpretation: Radiology results as stated below per my review and radiologist interpretation: CHEST ONE VIEW PORTABLE HISTORY: EVALUATE ALTERED MENTAL STATUS/WEAKNESS COMPARISON: Chest 07/15/2017. FINDINGS: Low lung volumes. Bilateral linear densities persist. This favors atelectasis or scarring. The heart remains mildly enlarged. There may be a trace left pleural effusion. The upper lung zones are clear. No pneumothorax. Right jugular central venous catheter terminates in the SVC. IMPRESSION: 1. Suspect a trace left pleural effusion. 2. Bilateral linear densities favor subsegmental atelectasis or scarring. This remains unchanged. No new focal lung consolidations. Electronically signed by: Quang Whittaker M.D. 07/25/2017 2:04 PM Dictated Date/Time: 07/25/2017 2:03 PM Laboratory Results 07/25/17 14:00 Red Blood Count 3.21, Mean Corpuscular Volume 89.7, Mean Corpuscular Hemoglobin 30.8, Mean Corpuscular Hemoglobin Concent 34.4, Mean Platelet Volume 10.0 07/25/17 14:00 Test 07/25/17 14:00 07/25/17 15:32 White Blood Count 10.95 K/uL (4.8-10.8) Red Blood Count 3.21 M/uL (4.2-5.4) Hemoglobin 9.9 g/dL (12.0-16.0) Hematocrit 28.8 % (37-47) Mean Corpuscular Volume 89.7 fL (80-100) Mean Corpuscular Hemoglobin 30.8 pg (25-34) Mean Corpuscular Hemoglobin Concent 34.4 g/dl (32-36) Platelet Count 71 K/uL (130-400) Mean Platelet Volume 10.0 fL (7.4-10.4) RDW Standard Deviation 52.1 fL (36.4-46.3) RDW Coefficient of Variation 16.2 % (11.5-14.5) Nucleated RBC Absolute Count (auto) 0.04 K/uL (0-0) Neutrophils % (Manual) 87.1 % Lymphocytes % (Manual) 4.3 % Monocytes % (Manual) 5.2 % Metamyelocytes % 1.7 % Myelocytes % 1.7 % Nucleated Red Blood Cells % 0.4 % Neutrophils # (Manual) 9.54 K/uL (1.4-6.5) Total Absolute Neutrophils 9.54 K/uL (1.4-6.5) Lymphocytes # (Manual) 0.47 K/uL (1.2-3.4) Total Absolute Lymphocytes 0.47 K/uL (1.2-3.4) Monocytes # (Manual) 0.57 K/uL (0.11-0.59) Metamyelocytes # 0.19 K/uL (0-0) Myelocytes # 0.19 K/uL (0-0) Toxic Granulation 1+ Prothrombin Time 13.4 SECONDS (9.0-12.0) Prothromb Time International Ratio 1.2 (0.9-1.1) Activated Partial Thromboplast Time 32.1 SECONDS (21.0-31.0) Partial Thromboplastin Ratio 1.2 Anion Gap 7.0 mmol/L (3-11) Est Creatinine Clear Calc Drug Dose 66.4 ml/min Estimated GFR () 79.9 Estimated GFR (Non- 69.0 BUN/Creatinine Ratio 6.3 (10-20) Calcium Level 7.2 mg/dl (8.5-10.1) Magnesium Level 1.2 mg/dl (1.8-2.4) Total Bilirubin 0.6 mg/dl (0.2-1) Aspartate Amino Transf (AST/SGOT) 15 U/L (15-37) Alanine Aminotransferase (ALT/SGPT) 12 U/L (12-78) Alkaline Phosphatase 152 U/L (45-117) Troponin I 0.027 ng/ml (0-0.045) Total Protein 4.4 gm/dl (6.4-8.2) Albumin 2.1 gm/dl (3.4-5.0) Globulin 2.3 gm/dl (2.5-4.0) Albumin/Globulin Ratio 0.9 (0.9-2) Thyroid Stimulating Hormone (TSH) 4.060 uIu/ml (0.300-4.500) Urine Color YELLOW Urine Appearance CLOUDY (CLEAR) Urine pH 6.5 (4.5-7.5) Urine Specific [place] 1.008 (1.000-1.030) Urine Protein 1+ (NEG) Urine Glucose (UA) NEG (NEG) Urine Ketones NEG (NEG) Urine Occult Blood 2+ (NEG) Urine Nitrite NEG (NEG) Urine Bilirubin NEG (NEG) Urine Urobilinogen NEG (NEG) Urine Leukocyte Esterase LARGE (NEG) Urine WBC (Auto) >30 /hpf (0-5) Urine RBC (Auto) 5-10 /hpf (0-4) Urine Hyaline Casts (Auto) 1-5 /lpf (0-5) Urine Epithelial Cells (Auto) 0-5 /lpf (0-5) Urine Bacteria (Auto) NEG (NEG) Laboratory results reviewed by me. Medications Administered Medications (Trade) Dose Ordered Sig/[place] Route Start Time Stop Time Status Last Admin Dose Admin Sodium Chloride 500 ml @ 999 mls/hr Q31M STAT IV 07/25/17 13:43 07/25/17 14:13 DC 07/25/17 13:43 999 MLS/HR Losartan Potassium (coZAAR TAB) 100 mg NOW STAT PO 07/25/17 13:43 07/25/17 13:47 DC 07/25/17 14:31 100 MG Magnesium Sulfate (Magnesium Sulfate) 2 gm NOW STAT IV 07/25/17 14:54 07/25/17 14:55 DC 07/25/17 15:15 2 GM ECG Indication: other (diarrhea) Rate (beats per minute): 87 Rhythm: normal sinus Findings: RBBB (incomplete), no acute ischemic change, no ectopy ED Course 1334: The patient was evaluated in room A10. A complete history and physical exam was performed. 1343: Losartan Potassium 100mg PO, Sodium Chloride 500 ml @ 999 mls/hr IV 1454: Magnesium Sulfate 2gm IV 1605: I reevaluated the patient, and she was resting. I am going to talk to the pillowcase cleaner about getting her placed somewhere else 1715: I talked with the pillowcase cleaner, and she states that the patient is going to be evaluated further here 173: Discussed the patient's case with Dr. [facility]. The patient will be evaluated for further management. Medical Decision Differential diagnoses include: C Diff colitis, GI bleeding, anemia, electrolyte imbalance, dysrhythmia, UTI, dehydration. There is a very mild leukocytosis, this could be consistent with infection or just the stress of her current situation. She is anemic and she has a low platelet count, these values though are relatively baseline looking back at her recent testing. She is not in renal failure. Magnesium is quite low at 1.2. No hepatitis. The patient appears to be in a euthyroid state. Urinalysis is suggestive of infection, urine culture and blood cultures are pending. Chest film does not show pneumonia or free air. No concerning coagulopathy. The patient received IV saline, she was given IV magnesium. She received her typical dose of oral losartan as she had not taken this medication this morning. The patient presents with diarrhea, weakness, the inability to stand. She just left the hospital yesterday. She has lymphoma and is on chemotherapy treatment. Her magnesium is low. She presents with diarrhea. She is not able to be discharged home back to her current living circumstances. I talked with her about rehabilitation versus alf care, the case preparer and liner talked to the family as well. The patient is being brought back into the hospital, she is likely going to need some sort of placement as she is not functioning well enough at home. Of note, the patient was able to have a bowel movement, C. difficile testing was negative. I spoke to the on-call hospitalist. Medication Reconcilliation Current Medication List: was personally reviewed by me Blood Pressure Screening Patient's blood pressure: Elevated blood pressure Blood pressure disposition: Elevated BP felt to be situational Consults Time Called: 172 Consulting Physician: Dr. [facility] Returned Call: 1730 Discussed the patient's case with Dr. Jeter [facility]. The patient will be evaluated for further management. Impression Primary Impression: Weakness Additional Impressions: Diarrhea Hypomagnesemia Scribe Attestation The scribe's documentation has been prepared under my direction and personally reviewed by me in its entirety. I confirm that the note above accurately reflects all work, treatment, procedures, and medical decision making performed by me. Departure Information Dispostion Being Evaluated By Hospitalist Referrals No Doctor, Assigned (PCP) Patient Instructions [facility] Health Problem Qualifiers
[2017-07-25 14:50] LABS: BUN/CREATININE RATIO 6.3 (10-20); CALCIUM 7.2 mg/dl (8.5-10.1); CREATININE 0.83 mg/dl (0.60-1.20); MAGNESIUM 1.2 mg/dl (1.8-2.4); POTASSIUM 3.6 mmol/L (3.5-5.1)
[2017-07-25] MEDS ORDERED: MAGNESIUM SULFATE 1GM / D5W 1 GM BAG IV STA (14:54)
[2017-07-25 15:00] LABS: ALB/GLOB RATIO 0.9 (0.9-2); COMPLETE YES; INR 1.2 (0.9-1.1); LYMPH ABS # 0.47 K/uL (1.2-3.4); LYMPHOCYTE % 4.3 %; META ABS # 0.19 K/uL (0-0); METAMYELOCYTE % 1.7 %; MYELOCYTE % 1.7 %; NEUTROPHILS % 87.1 %; PARTIAL THROMBOPLASTIN RATIO 1.2; PROTHROMBIN TIME (PATIENT) 13.4 SECONDS (9.0-12.0); THYROID STIMULATING HORMONE 4.06 uIu/ml (0.300-4.500); TOXIC GRANULATION 1+
[2017-07-25 15:51] LABS: URINE APPEARANCE CLOUDY (CLEAR); URINE BILIRUBIN NEG (NEG); URINE COLOR YELLOW; URINE EPITHELIAL CELL AUTO 0-5 /lpf (0-5); URINE NITRITE NEG (NEG); URINE PH 6.5 (4.5-7.5); URINE SPECIFIC GRAVITY 1.008 (1.000-1.030); UROBILINOGEN NEG (NEG); ZZURINE CULT IF INDIC CATH YES
[2017-07-25 15:58] LABS: MANUAL MICROSCOPIC REQUIRED? NO; REVIEW REQ? NO
[2017-07-25] MEDS ORDERED: DOCUSATE SODIUM/SENNA 50/8.6MG TAB PO PRN (18:15)
[2017-07-25] MEDS ORDERED: ALBUTEROL HFA 8 GM INHALER INH PRN (18:15)
[2017-07-25] MEDS ORDERED: CALCIUM CARBONATE 500 MG CHEWABLE PO PRN (18:15)
[2017-07-25] MEDS ORDERED: PROCHLORPERAZINE 25 MG SUPP PR PRN (18:15)
[2017-07-25] MEDS ORDERED: IV FLUIDS COMPLETED PRN (18:30)
[2017-07-25] MEDS: POT PHOSPHATE MONOBASIC W/ SOD TAB PO SCH ×2 (20:00→22:28)
[2017-07-25] MEDS: DOCUSATE SODIUM 100 MG CAP PO SCH (20:00)
[2017-07-25] MEDS: ALBUTEROL HFA 8 GM INHALER INH SCH (20:00)
--- NOTE | 2017-07-25 20:49 | History and Physical ---
History & Physical Date & Time of Service: Jul 25, 2017 at 20:34 Chief Complaint: Lymphoma, Weakness Primary Care Physician: No Doctor, Assigned History of Present Illness Source: patient, family The patient is a 77-year-old female who was recently in hospital from July 11 through July 24 following head trauma with, and neutropenia. The patient remained home from about 12 hours, and was weak and unable to get up with her daughters help, had some loose stools that began in the morning, and thus returned to the hospital for reassessment. She was undergo home physical therapy, and visiting nurses were to start care today. The patient has had poor overall intake over the past few weeks associated with chemotherapy. Family History No pertinent family history Social History Smoking Status: Never Smoker Smokeless Tobacco Use: No Alcohol Use: none Drug Use: none Marital Status: Housing status: lives with family Occupational Status: retired Immunizations History of Influenza Vaccine: Unknown History of Tetanus Vaccine?: Unknown History of Pneumococcal: Unknown History of Hepatitis B Vaccine: Unknown Multi-Drug Resistant Organisms History of MDRO: Yes Type of MDRO: other Allergies Coded Allergies: Cephalosporins (Unverified Allergy, Intermediate, BREATHING PROBLEMS, ) Ciprofloxacin (Verified Allergy, Intermediate, RASH, 07/05/17) Phlebitis Penicillins (Verified Allergy, Mild, HIVES, 07/05/17) Home Medications Scheduled Albuterol Hfa (Ventolin Hfa), 2 PUFFS INH QID Allopurinol (Zyloprim), 200 MG PO QPM Docusate Sodium (Docusate Sodium), 100 MG PO AMHS Dronabinol (Marinol), 2.5 MG PO BID Fentanyl (Duragesic), 25 MCG TOP Q72H Fluticasone Propionate (Nasal) (Flonase Allergy Relief), 2 SPRAYS VIGNESH DAILY Folic Acid (Folic Acid), 1 MG PO QAM Furosemide (Lasix), 20 MG PO QAM Heparin Sodium (Porcine) Lock (Heparin Lock Flush), 5 ML IVF DAILY Hydrocodone/Acetaminophen 5MG/325MG ([place] 5MG/325MG), 1 TAB PO TID Lidocaine (Lidocaine), 1 PATCH TD QAM Losartan Potassium (Cozaar), 100 MG PO DAILY Multivitamins/Minerals (Mvi With Minerals), 1 TAB PO DAILY Oxybutynin Chloride Er (Ditropan Xl), 10 MG PO QAM Pantoprazole (Protonix), 40 MG PO DAILY Pot Phosphate Monobasic W/ Sod (Phospha 250 Neutral), 1 TAB PO QID Potassium Ext Rel (Klor-Con), 40 MEQ PO DAILY Sitagliptin Phosphate (Januvia), 100 MG PO QAM Sodium Chloride (Saline Flush), 10 ML IVF DAILY Scheduled PRN Acetaminophen (Tylenol), 500 MG PO Q4 PRN for MILD-MOD PAIN Albuterol Hfa (Ventolin Hfa), 2 PUFFS INH QID PRN for Wheezing Calcium Carbonate (Tums), 500 MG PO Q4 PRN for Indigestion Hydrocodone/Acetaminophen 5MG/325MG ([place] 5MG/325MG), 1 TABLET PO Q4 PRN for Pain Meclizine Hcl (Meclizine Hcl), 25 MG PO TID PRN for VERTIGO Ondansetron Odt (Zofran Odt), 8 MG SL Q6H PRN for Nausea Prochlorperazine (Compazine Supp), 25 MG PA Q6H PRN for Nausea or Vomiting Sennosides-Docusate Sodium (Senna S), 1 TABS PO Q24H PRN for Constipation Review of Systems The patient denies chest pain, palpitations, shortness of breath, cough, lower extremity swelling, vision change, hearing change, sore throat, fevers, chills, sweats, nausea, vomiting, constipation, abdominal pain, pelvic pain, blood in urine or stool, dysuria, urinary frequency or urgency, headache, memory loss, rash, abnormal bruising or bleeding, imbalance, focal weakness, numbness or tingling in arms or legs, generalized arthralgias or myalgias, back or neck pain , night sweats, or allergy symptoms. The review of systems is otherwise negative other than for that already noted above, and at least 10 systems have been reviewed. Physical Exam Vital Signs Date Time Temp Pulse Resp B/P (MAP) Pulse Ox O2 Delivery O2 Flow Rate FiO2 07/25/17 17:35 85 20 177/83 95 Room Air 07/25/17 15:16 82 18 169/73 95 Room Air 07/25/17 13:35 36.6 96 18 168/80 96 Room Air 07/25/17 13:23 99 The patient is awake, alert and oriented 3, normocephalic and atraumatic, extremely fatigued, lying in bed and in no acute distress. HEENT--PERRL, EOMI, mucous membranes and oropharynx dry. Neck--supple, no JVD or bruits, thyroid normal, trachea midline, no adenopathy. Heart--normal S1 and S2, no extra beats, no murmurs, rubs or gallops. Lungs--clear bilaterally with overall decreased breath sounds, no respiratory distress, no accessory muscle use. Abdomen--normal bowel sounds and soft, nontender and nondistended, no hernias or masses, no organomegaly. Extremities--no cyanosis, clubbing or edema. There are good distal pulses b/l. Dermatologic--normal skin turgor, normal color, warm and dry, no abnormal lymph nodes, no rash. Neurologic--cranial nerves II through XII grossly intact. Rheumatologic--limited range of motion due to lack of energy. Psychiatric--flat affect. Diagnostics Laboratory Results Results Past 24 Hours Test 07/25/17 14:00 07/25/17 15:32 Range/Units White Blood Count 10.95 4.8-10.8 K/uL Red Blood Count 3.21 4.2-5.4 M/uL Hemoglobin 9.9 12.0-16.0 g/dL Hematocrit 28.8 37-47 % Mean Corpuscular Volume 89.7 80-100 fL Mean Corpuscular Hemoglobin 30.8 25-34 pg Mean Corpuscular Hemoglobin Concent 34.4 32-36 g/dl Platelet Count 71 130-400 K/uL Mean Platelet Volume 10.0 7.4-10.4 fL RDW Standard Deviation 52.1 36.4-46.3 fL RDW Coefficient of Variation 16.2 11.5-14.5 % Nucleated RBC Absolute Count (auto) 0.04 0-0 K/uL Neutrophils % (Manual) 87.1 % Lymphocytes % (Manual) 4.3 % Monocytes % (Manual) 5.2 % Metamyelocytes % 1.7 % Myelocytes % 1.7 % Nucleated Red Blood Cells % 0.4 % Neutrophils # (Manual) 9.54 1.4-6.5 K/uL Total Absolute Neutrophils 9.54 1.4-6.5 K/uL Lymphocytes # (Manual) 0.47 1.2-3.4 K/uL Total Absolute Lymphocytes 0.47 1.2-3.4 K/uL Monocytes # (Manual) 0.57 0.11-0.59 K/uL Metamyelocytes # 0.19 0-0 K/uL Myelocytes # 0.19 0-0 K/uL Toxic Granulation 1+ Prothrombin Time 13.4 9.0-12.0 SECONDS Prothromb Time International Ratio 1.2 0.9-1.1 Activated Partial Thromboplast Time 32.1 21.0-31.0 SECONDS Partial Thromboplastin Ratio 1.2 Sodium Level 141 136-145 mmol/L Potassium Level 3.6 3.5-5.1 mmol/L Chloride Level 106 98-107 mmol/L Carbon Dioxide Level 28 21-32 mmol/L Anion Gap 7.0 3-11 mmol/L Blood Urea Nitrogen 5 7-18 mg/dl Creatinine 0.83 0.60-1.20 mg/dl Est Creatinine Clear Calc Drug Dose 66.4 ml/min Estimated GFR () 79.9 Estimated GFR (Non- 69.0 BUN/Creatinine Ratio 6.3 10-20 Random Glucose 110 70-99 mg/dl Calcium Level 7.2 8.5-10.1 mg/dl Magnesium Level 1.2 1.8-2.4 mg/dl Total Bilirubin 0.6 0.2-1 mg/dl Aspartate Amino Transf (AST/SGOT) 15 15-37 U/L Alanine Aminotransferase (ALT/SGPT) 12 12-78 U/L Alkaline Phosphatase 152 45-117 U/L Troponin I 0.027 0-0.045 ng/ml Total Protein 4.4 6.4-8.2 gm/dl Albumin 2.1 3.4-5.0 gm/dl Globulin 2.3 2.5-4.0 gm/dl Albumin/Globulin Ratio 0.9 0.9-2 Thyroid Stimulating Hormone (TSH) 4.060 0.300-4.500 uIu/ml Urine Color YELLOW Urine Appearance CLOUDY CLEAR Urine pH 6.5 4.5-7.5 Urine Specific [place] 1.008 1.000-1.030 Urine Protein 1+ NEG Urine Glucose (UA) NEG NEG Urine Ketones NEG NEG Urine Occult Blood 2+ NEG Urine Nitrite NEG NEG Urine Bilirubin NEG NEG Urine Urobilinogen NEG NEG Urine Leukocyte Esterase LARGE NEG Urine WBC (Auto) >30 0-5 /hpf Urine RBC (Auto) 5-10 0-4 /hpf Urine Hyaline Casts (Auto) 1-5 0-5 /lpf Urine Epithelial Cells (Auto) 0-5 0-5 /lpf Urine Bacteria (Auto) NEG NEG Microbiology Results 07/25/17 Blood Culture, Received Pending 07/25/17 Blood Culture, Received Pending 07/25/17 Shiga Toxin Test, Received Pending 07/25/17 Stool Culture, Received Pending 07/25/17 C.difficile Toxin B Gene (PCR) - Final, Complete No C. difficile toxin B gene detected 07/25/17 Urine Culture, Received Pending Diagnostic Radiology Patient Name: VILMA NASH Unit Number: [id number] Dictated: 07/25/171402 Transcribed: 07/25/171402 PAJ Printed Date/Time: [~ rep prt dt]/[~ rep prt tm] [~ rep ct labl] - [~ rep ct ivnm] [facility] [place] [place] [address] Dictated: 07/25/171402 Transcribed: 07/25/17 140 PAJ Printed Date/Time: [~ rep prt dt]/[~ rep prt tm] [~ rep ct labl] - [~ rep ct ivnm] [~ rep ct add3]] CHEST ONE VIEW PORTABLE HISTORY: EVALUATE ALTERED MENTAL STATUS/WEAKNESS COMPARISON: Chest 07/15/2017. FINDINGS: Low lung volumes. Bilateral linear densities persist. This favors atelectasis or scarring. The heart remains mildly enlarged. There may be a trace left pleural effusion. The upper lung zones are clear. No pneumothorax. Right jugular central venous catheter terminates in the SVC. IMPRESSION: 1. Suspect a trace left pleural effusion. 2. Bilateral linear densities favor subsegmental atelectasis or scarring. This remains unchanged. No new focal lung consolidations. Electronically signed by: Quang Whittaker M.D. 07/25/2017 2:04 PM Dictated Date/Time: 07/25/2017 2:03 PM The status of this report is Signed. Draft = Not yet reviewed or approved by Radiologist. Signed = Reviewed and approved by Radiologist. <AttendingPhy></AttendingPhy> <FamilyPhy>No Doctor, Assigned</FamilyPhy> < PrimaryPhy>No Doctor, Assigned</PrimaryPhy> <UnitNumber>[id number]</UnitNumber> <VisitNumber>[id number]</VisitNumber> <PatientName>VILMA NASH</PatientName > <DateOfBirth>1940</DateOfBirth> <Location>[facility]</Location> <ServiceDate> 07/25/17</ServiceDate> <MNE>ESINDI</MNE> <OrderingPhy>Charlie Mancuso M.D.</ OrderingPhy> <OrderingPhyMNE>f rep ord dr stern</OrderingPhyMNE> <DictatingPhyMNE> f rep dict dr stern</DictatingPhyMNE> <CCListMNE>f rep ct jarred</CCListMNE> < AdmittingPhyMNE>f pt admit dr stern</AdmittingPhyMNE> <AttendingPhyMNE>f pt attend dr stern</AttendingPhyMNE> <ConsultingPhyMNE>f pt consult dr stern</ConsultingPhyMNE> <FamilyPhyMNE>f pt fam dr stern</FamilyPhyMNE> <OtherPhyMNE>f pt other dr stern</OtherPhyMNE> < PrimaryPhyMNE>f pt prim care dr stern</PrimaryPhyMNE> <ReferringPhyMNE>f pt referring dr stern</ReferringPhyMNE> EKG EKG shows normal sinus rhythm at 87 bpm, no acute ST-T changes, and no change compared to 06/26/2017 Impression Assessment and Plan Failure to thrive/overwhelming fatigue/1 episode of loose stools/low magnesium and borderline potassium--patient will be admitted to the medical surgical floor. Normal saline with KCl 20 mEq at 100 mils per hour. Magnesium sulfate 3 g IV. Famotidine 20 mg IV every 12 hours. Zofran 4 mg IV every 6 hours when necessary. Consult psych social worker, as it is readily apparent, the patient is not able to live in the current setting at home. Lymphoma--continue supportive medications: Docusate sodium, dronabinol, multivitamin with minerals, phosphatase 50 neutral, saline flushes. Hypertension--hold losartan potassium, and furosemide 20 mg every morning. Diabetes mellitus--hold Januvia. Place on Accu-Cheks before meals and at bedtime with NovoLog coverage per scale. Chronic pain syndrome--continue fentanyl patch 25 g every 72 hours, [place] 03/30 one by mouth 3 times a day and lidocaine patch. GERD--continue pantoprazole 40 mg by mouth daily, and add famotidine. Bladder spasm--continue Ditropan XL 10 mg by mouth every morning. Gout--continue allopurinol 200 mg by mouth every afternoon. Level of Care Med/Surg Advanced Directives Existing Advance Directive: No Existing Living Will: No Existing Power of E Business Manager: No Resuscitation Status FULL RESUSCITATION VTE Prophylaxis VTE Risk Assessment Done? Y/N: Yes Risk Level: Moderate Given or contraindicated: SCD's Social Service Consult Cancer Patient Under [place]
[2017-07-25 20:51] VITALS: BP 168/102; PULSE 98; TEMP 36.6; O2SAT 96; BMI 45.0
[2017-07-25] MEDS: HYDROCODONE/ACETAMOPHEN 5/325MG TAB PO SCH (22:25)
[2017-07-25] MEDS: DRONABINOL 2.5 MG CAP PO SCH (22:25)
[2017-07-25] MEDS: ALLOPURINOL 100 MG TAB PO SCH (22:26)
[2017-07-25] MEDS: NSS + 20MEQ KCL 1000ML 1,000 ML IV SCH (22:27)
[2017-07-25] MEDS: CHECK FENTANYL PATCH PLACEMENT SCH (23:34)
[2017-07-26] VITALS (7 sets, daily range): BP systolic 120–166; BP diastolic 71–82; PULSE 84–99; TEMP 36.3–37; O2SAT 94–97
[2017-07-26] MEDS: MAGNESIUM SULFATE 1GM / D5W 1 GM in PREMIXED IN D5W 100 ML IV SCH ×3 (01:04→03:25)
[2017-07-26 05:36] LABS: HEMATOCRIT 28.9 % (37-47); MEAN CELL VOLUME 91.2 fL (80-100); MEAN CORPUSCULAR HGB CONC 31.8 g/dl (32-36); RED BLOOD COUNT 3.17 M/uL (4.2-5.4); WHITE BLOOD COUNT 7.97 K/uL (4.8-10.8)
[2017-07-26 05:41] LABS: MEAN PLATELET VOLUME 9.8 fL (7.4-10.4); PLATELET COUNT 95 K/uL (130-400)
[2017-07-26 06:05] LABS: BUN/CREATININE RATIO 6.9 (10-20); CALCIUM 7.4 mg/dl (8.5-10.1); CREATININE 0.69 mg/dl (0.60-1.20); MAGNESIUM 2.4 mg/dl (1.8-2.4); POTASSIUM 3.4 mmol/L (3.5-5.1)
[2017-07-26] MEDS: ONDANSETRON INJ 2 MG/ML 2 ML VIAL IV PRN (07:40)
[2017-07-26] MEDS: ACETAMINOPHEN 325 MG TAB PO PRN (07:40)
[2017-07-26] MEDS: PANTOprazole SOD 40 MG TAB PO SCH (08:00)
[2017-07-26] MEDS: FENTANYL 25 MCG/HR TDSY TD SCH (08:40)
[2017-07-26] MEDS: HYDROCODONE/ACETAMOPHEN 5/325MG TAB PO SCH ×3 (08:40→21:08)
[2017-07-26] MEDS: FENTANYL PATCH REMOVE & WASTE SCH (08:45)
[2017-07-26] MEDS: CHECK FENTANYL PATCH PLACEMENT SCH ×2 (08:54→15:17)
[2017-07-26] MEDS: ALBUTEROL HFA 8 GM INHALER INH SCH ×4 (08:54→19:49)
[2017-07-26] MEDS: POT PHOSPHATE MONOBASIC W/ SOD TAB PO SCH ×5 (08:55→21:07)
[2017-07-26] MEDS: FLUTICASONE PROPIONATE NA SPR 16 GM BTL NAE SCH (08:55)
[2017-07-26] MEDS: DOCUSATE SODIUM 100 MG CAP PO SCH ×2 (08:55→19:49)
[2017-07-26] MEDS: LIDODERM (LIDOCAINE) PATCH 5% TD SCH (10:24)
[2017-07-26] MEDS: DRONABINOL 2.5 MG CAP PO SCH ×2 (10:24→21:07)
[2017-07-26] MEDS: NSS + 20MEQ KCL 1000ML 1,000 ML IV SCH ×2 (10:28→18:20)
[2017-07-26] MEDS: CEROVITE ADV FORMULA TAB PO SCH (10:39)
[2017-07-26 12:14] LABS: ECHINOCYTES 1+; TOXIC GRANULATION 1+
[2017-07-26 12:16] LABS: BASO ABS # 0.07 K/uL (0-0.2); BASOPHIL % 0.9 %; COMPLETE YES; LYMPH ABS # 0.21 K/uL (1.2-3.4); LYMPHOCYTE % 2.6 %; META ABS # 0.14 K/uL (0-0); METAMYELOCYTE % 1.7 %; MYELOCYTE % 2.6 %; NEUTROPHILS % 86.1 %
[2017-07-26] MEDS: LOSARTAN POTASSIUM 50 MG TAB PO SCH (12:50)
[2017-07-26] MEDS: POTASSIUM CHLORIDE 20 MEQ TABCR PO SCH (12:51)
[2017-07-26] MEDS: FUROSEMIDE 20 MG TAB PO SCH (12:51)
[2017-07-26] MEDS: OXYBUTYNIN CHLORIDE 5 MG TABCR PO SCH (13:24)
[2017-07-26] MEDS: SODIUM CHLORIDE 0.9% 10ML FLUSH IV SCH (13:25)
--- NOTE | 2017-07-26 19:34 | Progress Note ---
Subjective Date of Service: Jul 26, 2017. Subjective Pt evaluation today including: conversation w/ patient, conversation w/ family , physical exam, chart review, lab review, review of studies, review of inpatient medication list Problem List Medical Problems: (1) Diarrhea Status: Acute (2) Head injury Status: Acute (3) Hypokalemia Status: Acute (4) Hypomagnesemia Status: Acute (5) Hypomagnesemia Status: Acute (6) Neutropenia Status: Acute (7) Pancytopenia Status: Acute (8) Pancytopenia Status: Acute (9) Pancytopenia Status: Acute (10) Sepsis Status: Acute (11) Somnolence Status: Acute (12) UTI (urinary tract infection) Status: Acute Review of Systems Constitutional: + weakness, + fatigue, No see HPI, No fever, No chills, No sweats, No weight loss, No problem reported Eyes: No see HPI, No worsening of vision, No eye pain, No redness, No discharge , No diplopia, No problem reported ENT: No see HPI, No hearing loss, No unusual epistaxis, No nasal symptoms, No sore throat, No tinnitus, No dental problems, No trouble swallowing, No problem reported Respiratory: No see HPI, No cough, No sputum, No wheezing, No shortness of breath, No dyspnea on exertion, No dyspnea at rest, No hemoptysis, No problem reported Cardiac: No see HPI, No chest pain, No orthopnea, No PND, No edema, No claudication, No palpitations, No problem reported Abdomen: No see HPI, No pain, No nausea, No vomiting, No diarrhea, No constipation, No GI bleeding, No problem reported Musculoskeletal: + joint pain, + muscle pain, No see HPI, No swelling, No calf pain, No problem reported Female : No see HPI, No dysuria, No urinary frequency, No hematuria, No incontinence, No abnormal vaginal bleeding, No vaginal discharge, No problem reported Neurologic: No see HPI, No memory loss, No paralysis, No weakness, No numbness/ tingling, No vertigo, No balance problems, No problem reported Psychiatric: No see HPI, No depression symptoms, No anhedonism, No anxiety, No insomnia, No substance abuse, No problem reported Heme: No see HPI, No abnormal bleeding/bruising, No clotting problems, No swollen lymph nodes, No night sweats, No problem reported Endo: No see HPI, No fatigue, No excessive thirst, No excessive urination, No problem reported Skin: No see HPI, No rash, No itch, No new/changing skin lesions, No color change, No bleeding, No problem reported Objective Vital Signs Date Time Temp Pulse Resp B/P (MAP) Pulse Ox O2 Delivery O2 Flow Rate FiO2 07/26/17 16:12 36.4 89 20 153/81 (105) 97 Room Air 07/26/17 16:00 96 Room Air 07/26/17 12:11 36.4 99 20 120/75 (90) 96 Room Air 07/26/17 08:53 Room Air 07/26/17 07:55 36.6 91 18 154/71 (98) 95 Room Air 07/26/17 04:12 36.3 84 18 154/82 (106) 97 Room Air 07/26/17 00:26 36.4 87 20 160/80 (106) 94 Room Air 07/26/17 00:00 Room Air 07/25/17 20:51 36.6 98 16 168/102 96 Room Air Physical Exam General Appearance: WD/WN, no apparent distress Eyes: normal inspection, EOMI ENT: normal ENT inspection, hearing grossly normal Neck: supple Respiratory/Chest: chest non-tender, lungs clear, normal breath sounds, no respiratory distress Cardiovascular: regular rate, rhythm, no edema, no gallop, no JVD, no murmur Abdomen: normal bowel sounds, non tender, soft, no organomegaly Extremities: normal range of motion, non-tender, normal inspection, no pedal edema Neurologic/Psychiatric: notereader II-XII nml as tested, no motor/sensory deficits, alert, normal mood/affect, oriented x 3 Skin: normal color, warm/dry, no rash Laboratory Results Last 24 Hours Test 07/26/17 05:16 07/26/17 17:52 White Blood Count 7.97 K/uL Red Blood Count 3.17 M/uL Hemoglobin 9.2 g/dL Hematocrit 28.9 % Mean Corpuscular Volume 91.2 fL Mean Corpuscular Hemoglobin 29.0 pg Mean Corpuscular Hemoglobin Concent 31.8 g/dl Platelet Count 95 K/uL Mean Platelet Volume 9.8 fL RDW Standard Deviation 53.7 fL RDW Coefficient of Variation 16.5 % Neutrophils % (Manual) 86.1 % Lymphocytes % (Manual) 2.6 % Monocytes % (Manual) 5.2 % Basophils % (Manual) 0.9 % Metamyelocytes % 1.7 % Myelocytes % 2.6 % Blast Cells % 0.9 % Neutrophils # (Manual) 6.86 K/uL Total Absolute Neutrophils 6.86 K/uL Lymphocytes # (Manual) 0.21 K/uL Total Absolute Lymphocytes 0.21 K/uL Monocytes # (Manual) 0.41 K/uL Basophils # (Manual) 0.07 K/uL Metamyelocytes # 0.14 K/uL Myelocytes # 0.21 K/uL Blast Cells # 0.07 K/uL Blood Smear Review Toxic Granulation 1+ Echinocytes 1+ Sodium Level 142 mmol/L Potassium Level 3.4 mmol/L Chloride Level 107 mmol/L Carbon Dioxide Level 28 mmol/L Anion Gap 7.0 mmol/L Blood Urea Nitrogen 5 mg/dl Creatinine 0.69 mg/dl Est Creatinine Clear Calc Drug Dose 79.9 ml/min Estimated GFR () 98.7 Estimated GFR (Non- 85.2 BUN/Creatinine Ratio 6.9 Random Glucose 98 mg/dl Calcium Level 7.4 mg/dl Magnesium Level 2.4 mg/dl Bedside Glucose 106 mg/dl Assessment and Plan 77-year-old female with 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 Recently she had a fall and was admitted to the hospital. Then from the hospital she was discharged to rehabilitation. On July 24 she was discharged from rehabilitation to her house. She spent the night there but yesterday she went to the bathroom and was not able to stand up due to severe weakness. Significant weakness was manifested in her left lower extremity that gives up on her. Patient came to the hospital for further evaluation and management. Significant generalized weakness and deconditioning. PT/OT Continue supportive care Plan for rehabilitation discharge. Nutrition supplement. Pyuria present on admission Unsure if it's a full-blown UTI, does have full known staghorn calculus and stent on the right urethra, petechiae and it's a complicated UTI that might require significant IV antibiotic. Follow-up urine cultures B-cell lymphoma, continue chemotherapy as an outpatient Diabetes mellitus type 2, will place her on sliding scale DVT prophylaxis/SCD boot as platelets count only fluctuating from 75-95
[2017-07-26] MEDS ORDERED: GLUCOSE 40% GEL 15 GM TUBE PO PRN (19:45)
[2017-07-26] MEDS ORDERED: GLUCOSE 10 TABS/TUBE PO PRN (19:45)
[2017-07-26] MEDS ORDERED: GLUCAGON FOR INJ 1 MG VIAL SQ PRN (19:45)
[2017-07-26] MEDS: INSULIN ASPART 100 UNITS/ML 3 ML PEN SC SCH (21:00)
[2017-07-26] MEDS: ALLOPURINOL 100 MG TAB PO SCH (21:07)
[2017-07-27] VITALS (9 sets, daily range): BP systolic 141–180; BP diastolic 76–88; PULSE 76–86; TEMP 36.4–36.8; O2SAT 92–97
[2017-07-27] MEDS: CHECK FENTANYL PATCH PLACEMENT SCH ×4 (00:04→23:42)
[2017-07-27] MEDS: HYDROCODONE/ACETAMOPHEN 5/325MG TAB PO PRN ×3 (03:29→21:14)
[2017-07-27] MEDS: NSS + 20MEQ KCL 1000ML 1,000 ML IV SCH ×3 (04:06→23:42)
[2017-07-27 06:32] LABS: HEMATOCRIT 30.3 % (37-47); MEAN CELL VOLUME 92.7 fL (80-100); MEAN CORPUSCULAR HGB CONC 32.3 g/dl (32-36); MEAN PLATELET VOLUME 9.8 fL (7.4-10.4); PLATELET COUNT 124 K/uL (130-400); RED BLOOD COUNT 3.27 M/uL (4.2-5.4); WHITE BLOOD COUNT 8.89 K/uL (4.8-10.8)
[2017-07-27 07:04] LABS: BUN/CREATININE RATIO 5.3 (10-20); CALCIUM 7.7 mg/dl (8.5-10.1); CREATININE 0.69 mg/dl (0.60-1.20); POTASSIUM 4.1 mmol/L (3.5-5.1)
[2017-07-27 07:08] LABS: PHOSPHORUS 2.5 mg/dl (2.5-4.9)
[2017-07-27 07:24] LABS: BASO % 0.6 %; BASO ABS # 0.05 K/uL (0-0.2); COMPLETE YES; IG% 5.6 %; LYMPH % 7.9 %; MONO % 18.7 %; NEUT % 67.2 %; POLYCHROMASIA 1+; TOXIC GRANULATION 1+
[2017-07-27] MEDS: SODIUM CHLORIDE 0.9% 10ML FLUSH IV SCH (08:00)
[2017-07-27] MEDS: DRONABINOL 2.5 MG CAP PO SCH ×2 (08:50→21:14)
[2017-07-27] MEDS: HYDROCODONE/ACETAMOPHEN 5/325MG TAB PO SCH (08:51)
[2017-07-27] MEDS: LIDODERM (LIDOCAINE) PATCH 5% TD SCH (08:52)
[2017-07-27] MEDS: ONDANSETRON INJ 2 MG/ML 2 ML VIAL IV PRN (08:54)
[2017-07-27] MEDS: ALBUTEROL HFA 8 GM INHALER INH SCH ×2 (09:27→10:42)
[2017-07-27] MEDS: FLUTICASONE PROPIONATE NA SPR 16 GM BTL NAE SCH (09:30)
[2017-07-27] MEDS: DOCUSATE SODIUM 100 MG CAP PO SCH ×2 (09:30→21:15)
[2017-07-27] MEDS: POTASSIUM CHLORIDE 20 MEQ TABCR PO SCH (09:31)
[2017-07-27] MEDS: POT PHOSPHATE MONOBASIC W/ SOD TAB PO SCH ×5 (09:31→21:16)
[2017-07-27] MEDS: OXYBUTYNIN CHLORIDE 5 MG TABCR PO SCH (09:31)
[2017-07-27] MEDS: CEROVITE ADV FORMULA TAB PO SCH (09:31)
[2017-07-27] MEDS: INSULIN ASPART 100 UNITS/ML 3 ML PEN SC SCH ×4 (10:42→20:49)
--- NOTE | 2017-07-27 11:26 | Progress Note ---
Subjective Date of Service: Jul 27, 2017. Subjective Pt evaluation today including: conversation w/ patient, conversation w/ family , physical exam, chart review, lab review, review of inpatient medication list Problem List Medical Problems: (1) Diarrhea Status: Acute (2) Head injury Status: Acute (3) Hypokalemia Status: Acute (4) Hypomagnesemia Status: Acute (5) Hypomagnesemia Status: Acute (6) Neutropenia Status: Acute (7) Pancytopenia Status: Acute (8) Pancytopenia Status: Acute (9) Pancytopenia Status: Acute (10) Sepsis Status: Acute (11) Somnolence Status: Acute (12) UTI (urinary tract infection) Status: Acute Review of Systems Constitutional: + weakness, + fatigue, No see HPI, No fever, No chills, No sweats, No weight loss, No problem reported ENT: No see HPI, No hearing loss, No unusual epistaxis, No nasal symptoms, No sore throat, No tinnitus, No dental problems, No trouble swallowing, No problem reported Respiratory: No see HPI, No cough, No sputum, No wheezing, No shortness of breath, No dyspnea on exertion, No dyspnea at rest, No hemoptysis, No problem reported Cardiac: No see HPI, No chest pain, No orthopnea, No PND, No edema, No claudication, No palpitations, No problem reported Abdomen: No see HPI, No pain, No nausea, No vomiting, No diarrhea, No constipation, No GI bleeding, No problem reported Musculoskeletal: + joint pain, + muscle pain, No see HPI, No swelling, No calf pain, No problem reported Female : No see HPI, No dysuria, No urinary frequency, No hematuria, No incontinence, No abnormal vaginal bleeding, No vaginal discharge, No problem reported Neurologic: No see HPI, No memory loss, No paralysis, No weakness, No numbness/ tingling, No vertigo, No balance problems, No problem reported Psychiatric: No see HPI, No depression symptoms, No anhedonism, No anxiety, No insomnia, No substance abuse, No problem reported Heme: No see HPI, No abnormal bleeding/bruising, No clotting problems, No swollen lymph nodes, No night sweats, No problem reported Endo: No see HPI, No fatigue, No excessive thirst, No excessive urination, No problem reported Objective Vital Signs Date Time Temp Pulse Resp B/P (MAP) Pulse Ox O2 Delivery O2 Flow Rate FiO2 07/27/17 10:45 Room Air 07/27/17 09:11 82 141/80 (100) 97 07/27/17 08:33 36.4 81 20 164/76 (105) 95 Room Air 07/27/17 04:43 36.5 81 20 166/88 (114) 95 Room Air 07/27/17 00:32 36.8 76 18 151/81 (104) 95 Room Air 07/27/17 00:00 Room Air 07/26/17 20:55 37.0 84 20 166/80 (108) 96 Room Air 07/26/17 16:12 36.4 89 20 153/81 (105) 97 Room Air 07/26/17 16:00 96 Room Air 07/26/17 12:11 36.4 99 20 120/75 (90) 96 Room Air Physical Exam General Appearance: WD/WN, + mild distress, + obese ENT: normal ENT inspection, hearing grossly normal Neck: supple Respiratory/Chest: chest non-tender, lungs clear, normal breath sounds, no respiratory distress Cardiovascular: regular rate, rhythm, no edema, no gallop, no JVD, no murmur Abdomen: normal bowel sounds, non tender, soft, no organomegaly, no pulsatile mass Extremities: normal range of motion, + pedal edema, + swelling Neurologic/Psychiatric: assistant spa 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 II-XII nml as tested, no motor/sensory deficits, alert, normal mood/affect, oriented x 3 Skin: normal color, warm/dry, no rash Laboratory Results Last 24 Hours Test 07/26/17 17:52 07/26/17 21:07 07/27/17 05:49 07/27/17 07:42 Bedside Glucose 106 mg/dl 104 mg/dl 94 mg/dl White Blood Count 8.89 K/uL Red Blood Count 3.27 M/uL Hemoglobin 9.8 g/dL Hematocrit 30.3 % Mean Corpuscular Volume 92.7 fL Mean Corpuscular Hemoglobin 30.0 pg Mean Corpuscular Hemoglobin Concent 32.3 g/dl Platelet Count 124 K/uL Mean Platelet Volume 9.8 fL Neutrophils (%) (Auto) 67.2 % Lymphocytes (%) (Auto) 7.9 % Monocytes (%) (Auto) 18.7 % Eosinophils (%) (Auto) 0.0 % Basophils (%) (Auto) 0.6 % Neutrophils # (Auto) 5.98 K/uL Lymphocytes # (Auto) 0.70 K/uL Monocytes # (Auto) 1.66 K/uL Eosinophils # (Auto) 0.00 K/uL Basophils # (Auto) 0.05 K/uL RDW Standard Deviation 55.3 fL RDW Coefficient of Variation 16.8 % Immature Granulocyte % (Auto) 5.6 % Immature Granulocyte # (Auto) 0.50 K/uL Nucleated RBC Absolute Count (auto) 0.04 K/uL Nucleated Red Blood Cells % 0.5 % Toxic Granulation 1+ Polychromasia 1+ Sodium Level 142 mmol/L Potassium Level 4.1 mmol/L Chloride Level 109 mmol/L Carbon Dioxide Level 27 mmol/L Anion Gap 6.0 mmol/L Blood Urea Nitrogen 4 mg/dl Creatinine 0.69 mg/dl Est Creatinine Clear Calc Drug Dose 80.1 ml/min Estimated GFR () 98.7 Estimated GFR (Non- 85.2 BUN/Creatinine Ratio 5.3 Random Glucose 81 mg/dl Calcium Level 7.7 mg/dl Phosphorus Level 2.5 mg/dl Magnesium Level 2.0 mg/dl Total Bilirubin 0.5 mg/dl Aspartate Amino Transf (AST/SGOT) 20 U/L Alanine Aminotransferase (ALT/SGPT) 14 U/L Alkaline Phosphatase 155 U/L Total Protein 4.4 gm/dl Albumin 2.2 gm/dl Globulin 2.2 gm/dl Albumin/Globulin Ratio 1.0 Assessment and Plan 77-year-old female with 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 Recently she had a fall and was admitted to the hospital. Then from the hospital she was discharged to rehabilitation. On July 24 she was discharged from rehabilitation to her house. She spent the night there but yesterday she went to the bathroom and was not able to stand up due to severe weakness. Significant weakness was manifested in her left lower extremity that gives up on her. Patient came to the hospital for further evaluation and management. Significant generalized weakness and deconditioning. PT/OT Continue supportive care Plan for rehabilitation discharge. Nutrition supplement. Pyuria present on admission Unsure if it's a full-blown UTI, does have full known staghorn calculus and stent on the right urethra, petechiae and it's a complicated UTI that might require significant IV antibiotic. Follow-up urine cultures, so far urine cultures are negative but lost urine culture was positive for Escherichia coli that was sensitive to Macrobid, we will have low tolerance to treat, consider also chronic suppression with Macrobid a few UTIs confirmed B-cell lymphoma, continue chemotherapy as an outpatient Diabetes mellitus type 2, will place her on sliding scale DVT prophylaxis/SCD boot as platelets count only fluctuating from 75-95 Significant lower back pain, worsening in intensity and changed in character Due to her current cancer, will do MRI lower back
[2017-07-27] MEDS: MECLIZINE HCL 25 MG TAB PO PRN (11:29)
[2017-07-27] MEDS: PANTOprazole SOD 40 MG TAB PO SCH (11:51)
[2017-07-27] MEDS: FUROSEMIDE 20 MG TAB PO SCH (11:51)
[2017-07-27] MEDS: LOSARTAN POTASSIUM 50 MG TAB PO SCH (11:51)
[2017-07-27] MEDS: ONDANSETRON 8MG OD TAB SL PRN (12:39)
[2017-07-27] MEDS ORDERED: NURSING VERBAL MED ORDER ONE ×3 (13:30→14:00)
[2017-07-27] MEDS: ACETAMINOPHEN 325 MG TAB PO PRN (16:32)
--- NOTE | 2017-07-27 17:17 | DIAGNOSTIC IMAGING REPORT ---
LUMBAR SPINE W/O CONTRAST CLINICAL HISTORY: 77 years-old Female presenting with back pain in the setting of lymphoma. TECHNIQUE: Multisequence, multiplanar MR imaging of the lumbar spine was performed without the use of intravenous contrast. IV contrast: None. COMPARISON: Correlation made to CT of the abdomen and pelvis from 07/14/2017. FINDINGS: Localizer images: Unremarkable. Normal lumbar lordosis. Vertebral body height loss of L1 with significant concavity of the inferior endplate. Associated bony edema and a obliquely/transversely oriented fracture plane. No retropulsion of fracture fragments. No additional fracture or bony edema is evident. Mild diffuse vertebral body height loss at L4 without a focal compression deformity. Remaining vertebral bodies demonstrate normal height, alignment, and bone marrow signal intensity. Increased signal intensity within the L2 1 to disc. Remaining intervertebral discs demonstrate overall normal signal intensity. Mild multilevel degenerative change with minimal disc bulges. In part due to facet arthropathy, mild neural foraminal narrowing results at L3-4 at L5-S1 bilaterally. No significant spinal canal stenosis. Spinal cord ends in good position at the superior endplate of L1. Cauda equina normal in morphology. Dilatation of the left renal collecting system as on prior CT. No paraspinal muscular edema. Superficial soft tissue edema in the subcutaneous fat of the lumbar region. IMPRESSION: Evidence of acute compression fracture of L1. This appearance is unchanged from most recent CT. Increased signal intensity within the L1-2 disc is most likely posttraumatic given the absence of paraspinal inflammatory change. No retropulsion of fracture fragments. No spinal canal narrowing. Mild multilevel degenerative changes in the lower lumbar spine with resultant mild neural foraminal narrowing as above. Electronically signed by: Thony Weeks M.D. 07/27/2017 5:16 PM Dictated Date/Time: 07/27/2017 5:11 PM
[2017-07-27] MEDS: ALLOPURINOL 100 MG TAB PO SCH (21:18)
[2017-07-28] MEDS: HYDROCODONE/ACETAMOPHEN 5/325MG TAB PO PRN ×6 (01:13→23:39)
[2017-07-28] MEDS: ACETAMINOPHEN 325 MG TAB PO PRN ×2 (03:30→16:18)
[2017-07-28 04:43] VITALS: BP 170/77; PULSE 80; TEMP 36.4; O2SAT 94
[2017-07-28 05:53] LABS: HEMATOCRIT 29.2 % (37-47); MEAN CELL VOLUME 92.7 fL (80-100); MEAN CORPUSCULAR HEMOGLOBIN 30.5 pg (25-34); MEAN CORPUSCULAR HGB CONC 32.9 g/dl (32-36); MEAN PLATELET VOLUME 9.1 fL (7.4-10.4); PLATELET COUNT 119 K/uL (130-400); RED BLOOD COUNT 3.15 M/uL (4.2-5.4); WHITE BLOOD COUNT 9.71 K/uL (4.8-10.8)
[2017-07-28] MEDS: INSULIN ASPART 100 UNITS/ML 3 ML PEN SC SCH ×4 (06:30→21:00)
[2017-07-28 06:33] LABS: BUN/CREATININE RATIO 4.7 (10-20); CALCIUM 7.8 mg/dl (8.5-10.1); CREATININE 0.66 mg/dl (0.60-1.20); MAGNESIUM 1.5 mg/dl (1.8-2.4)
[2017-07-28 07:16] LABS: COMPLETE YES; LYMPH ABS # 0.51 K/uL (1.2-3.4); LYMPHOCYTE % 5.3 %; META ABS # 0.43 K/uL (0-0); METAMYELOCYTE % 4.4 %; MYELOCYTE % 1.8 %; NEUTROPHILS % 80.6 %; TOXIC GRANULATION 2+
[2017-07-28] MEDS: LIDODERM (LIDOCAINE) PATCH 5% TD SCH (07:23)
[2017-07-28] MEDS ORDERED: HYDROmorphone INJ 1 MG/ML SYR IV PRN (07:30)
[2017-07-28 08:00] VITALS: BP 180/104; PULSE 95; TEMP 36.6; O2SAT 92
[2017-07-28] MEDS: CHECK FENTANYL PATCH PLACEMENT SCH ×3 (08:00→23:46)
[2017-07-28] MEDS: POT PHOSPHATE MONOBASIC W/ SOD TAB PO SCH ×4 (08:00→19:38)
[2017-07-28] MEDS: FUROSEMIDE 20 MG TAB PO SCH (08:00)
[2017-07-28] MEDS: POTASSIUM CHLORIDE 20 MEQ TABCR PO SCH (08:00)
[2017-07-28] MEDS: OXYBUTYNIN CHLORIDE 5 MG TABCR PO SCH (08:00)
[2017-07-28] MEDS: LOSARTAN POTASSIUM 50 MG TAB PO SCH (08:00)
[2017-07-28] MEDS: DRONABINOL 2.5 MG CAP PO SCH ×2 (08:00→19:38)
[2017-07-28] MEDS: CEROVITE ADV FORMULA TAB PO SCH (08:00)
[2017-07-28] MEDS: PANTOprazole SOD 40 MG TAB PO SCH (08:00)
[2017-07-28] MEDS: DOCUSATE SODIUM 100 MG CAP PO SCH ×2 (08:00→19:38)
[2017-07-28] MEDS: NSS + 20MEQ KCL 1000ML 1,000 ML IV SCH ×2 (09:30→19:38)
[2017-07-28 10:17] VITALS: BP 156/78; PULSE 76
[2017-07-28] MEDS: ONDANSETRON INJ 2 MG/ML 2 ML VIAL IV PRN ×3 (11:15→19:37)
[2017-07-28 14:55] VITALS: BP 167/90; PULSE 90; TEMP 36.3; O2SAT 95
--- NOTE | 2017-07-28 15:49 | DIAGNOSTIC IMAGING REPORT ---
CT OF THE HEAD WITHOUT CONTRAST CLINICAL HISTORY: Nausea, Headache, Dizziness COMPARISON STUDY: Head CT July 11, 2017. CT DOSE: 634.23 mGy.cm TECHNIQUE: Helical axial images of the head were obtained without IV contrast. Automated exposure control was utilized for the study. A dose lowering technique was utilized adhering to the principles of ALARA. FINDINGS: No acute intracranial hemorrhage, midline shift or mass effect is present. Ventricular system is stable. Basilar cisterns are patent. There are no extra-axial collections. White matter hypodensities suggest mild small vessel disease. There are no findings to suggest acute dural sinus thrombosis or acute territorial infarct. Prominence of extra-axial CSF spaces is likely due to atrophy. This is unchanged. There are no significant calvarial abnormalities. Visualized portions of the sinuses and mastoid air cells are clear. IMPRESSION: No acute intracranial findings. Electronically signed by: Akbar Wills M.D. 07/28/2017 3:47 PM Dictated Date/Time: 07/28/2017 3:45 PM
--- NOTE | 2017-07-28 18:49 | Progress Note ---
Subjective Date of Service: Jul 28, 2017. Subjective Pt evaluation today including: conversation w/ patient, conversation w/ family , physical exam, chart review, lab review, review of studies, review of inpatient medication list Problem List Medical Problems: (1) Diarrhea Status: Acute (2) Head injury Status: Acute (3) Hypokalemia Status: Acute (4) Hypomagnesemia Status: Acute (5) Hypomagnesemia Status: Acute (6) Neutropenia Status: Acute (7) Pancytopenia Status: Acute (8) Pancytopenia Status: Acute (9) Pancytopenia Status: Acute (10) Sepsis Status: Acute (11) Somnolence Status: Acute (12) UTI (urinary tract infection) Status: Acute Review of Systems Constitutional: No see HPI, No fever, No chills, No sweats, No weight loss, No weakness, No fatigue, No problem reported Eyes: No see HPI, No worsening of vision, No eye pain, No redness, No discharge , No diplopia, No problem reported ENT: No see HPI, No hearing loss, No unusual epistaxis, No nasal symptoms, No sore throat, No tinnitus, No dental problems, No trouble swallowing, No problem reported Respiratory: No see HPI, No cough, No sputum, No wheezing, No shortness of breath, No dyspnea on exertion, No dyspnea at rest, No hemoptysis, No problem reported Cardiac: No see HPI, No chest pain, No orthopnea, No PND, No edema, No claudication, No palpitations, No problem reported Abdomen: No see HPI, No pain, No nausea, No vomiting, No diarrhea, No constipation, No GI bleeding, No problem reported Musculoskeletal: + joint pain, + muscle pain, + problem reported (back pain) Neurologic: No see HPI, No memory loss, No paralysis, No weakness, No numbness/ tingling, No vertigo, No balance problems, No problem reported Psychiatric: No see HPI, No depression symptoms, No anhedonism, No anxiety, No insomnia, No substance abuse, No problem reported Heme: No see HPI, No abnormal bleeding/bruising, No clotting problems, No swollen lymph nodes, No night sweats, No problem reported Endo: + fatigue Skin: No see HPI, No rash, No itch, No new/changing skin lesions, No color change, No bleeding, No problem reported Objective Vital Signs Date Time Temp Pulse Resp B/P (MAP) Pulse Ox O2 Delivery O2 Flow Rate FiO2 07/28/17 16:00 Room Air 07/28/17 14:55 36.3 90 18 167/90 (115) 95 Room Air 07/28/17 10:17 76 156/78 (104) 07/28/17 08:00 Room Air 07/28/17 08:00 36.6 95 18 180/104 (129) 92 Room Air 07/28/17 04:43 36.4 80 18 170/77 (108) 94 Room Air 07/27/17 23:40 Room Air 07/27/17 23:16 36.5 80 18 159/76 (103) 94 Room Air 07/27/17 20:20 36.4 82 18 180/80 (113) 96 Room Air Physical Exam General Appearance: no apparent distress, + obese Eyes: normal inspection, EOMI ENT: normal ENT inspection, hearing grossly normal Neck: supple Respiratory/Chest: chest non-tender, lungs clear, normal breath sounds, no respiratory distress, no accessory muscle use Cardiovascular: regular rate, rhythm, no edema, no gallop, no JVD, no murmur Abdomen: normal bowel sounds, non tender, soft, no organomegaly Extremities: normal range of motion, normal inspection Neurologic/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, no motor/sensory deficits, alert, normal mood/affect, oriented x 3 Skin: normal color, warm/dry, no rash Laboratory Results Last 24 Hours Test 07/27/17 20:01 07/28/17 05:38 07/28/17 07:55 07/28/17 11:09 Bedside Glucose 88 mg/dl 74 mg/dl 73 mg/dl White Blood Count 9.71 K/uL Red Blood Count 3.15 M/uL Hemoglobin 9.6 g/dL Hematocrit 29.2 % Mean Corpuscular Volume 92.7 fL Mean Corpuscular Hemoglobin 30.5 pg Mean Corpuscular Hemoglobin Concent 32.9 g/dl Platelet Count 119 K/uL Mean Platelet Volume 9.1 fL RDW Standard Deviation 56.0 fL RDW Coefficient of Variation 17.0 % Neutrophils % (Manual) 80.6 % Lymphocytes % (Manual) 5.3 % Monocytes % (Manual) 7.9 % Metamyelocytes % 4.4 % Myelocytes % 1.8 % Neutrophils # (Manual) 7.83 K/uL Total Absolute Neutrophils 7.83 K/uL Lymphocytes # (Manual) 0.51 K/uL Total Absolute Lymphocytes 0.51 K/uL Monocytes # (Manual) 0.77 K/uL Metamyelocytes # 0.43 K/uL Myelocytes # 0.17 K/uL Hypogranular Neutrophils 1+ Toxic Granulation 2+ Sodium Level 143 mmol/L Potassium Level 4.0 mmol/L Chloride Level 110 mmol/L Carbon Dioxide Level 27 mmol/L Anion Gap 6.0 mmol/L Blood Urea Nitrogen 3 mg/dl Creatinine 0.66 mg/dl Est Creatinine Clear Calc Drug Dose 85.2 ml/min Estimated GFR () 100.2 Estimated GFR (Non- 86.4 BUN/Creatinine Ratio 4.7 Random Glucose 75 mg/dl Calcium Level 7.8 mg/dl Magnesium Level 1.5 mg/dl Test 07/28/17 12:41 07/28/17 16:33 Bedside Glucose 73 mg/dl 77 mg/dl Assessment and Plan 77-year-old female with 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 Recently she had a fall and was admitted to the hospital. Then from the hospital she was discharged to rehabilitation. On July 24 she was discharged from rehabilitation to her house. She spent the night there but yesterday she went to the bathroom and was not able to stand up due to severe weakness. Significant weakness was manifested in her left lower extremity that gives up on her. Patient came to the hospital for further evaluation and management. Significant generalized weakness and deconditioning. PT/OT Continue supportive care Plan for rehabilitation discharge. Nutrition supplement. Severe back pain Due to her current active cancer, MRI lumbar spine was none, and showed acute compression fracture in L1 Orthopedic surgeon was consulted. Patient was started on Percocet for pain Pyuria present on admission Unsure if it's a full-blown UTI, does have full known staghorn calculus and stent on the right urethra, petechiae and it's a complicated UTI that might require significant IV antibiotic. Follow-up urine cultures, so far urine cultures are negative but lost urine culture was positive for Escherichia coli that was sensitive to Macrobid, we will have low tolerance to treat, consider also chronic suppression with Macrobid a few UTIs confirmed B-cell lymphoma, continue chemotherapy as an outpatient Diabetes mellitus type 2, will place her on sliding scale DVT prophylaxis/SCD boot as platelets count only fluctuating from 75-95
[2017-07-28 18:59] VITALS: BP 165/81; PULSE 76; TEMP 36.6; O2SAT 96
[2017-07-28] MEDS: ALLOPURINOL 100 MG TAB PO SCH (19:38)
[2017-07-28] MEDS: MECLIZINE HCL 25 MG TAB PO PRN (21:48)
[2017-07-28] MEDS: ONDANSETRON 8MG OD TAB SL PRN (22:12)
[2017-07-28 23:27] VITALS: BP 172/86; PULSE 82; TEMP 36.3; O2SAT 97
[2017-07-29] VITALS (7 sets, daily range): BP systolic 148–177; BP diastolic 74–95; PULSE 71–96; TEMP 36.3–36.8; O2SAT 94–100; BMI 44.9
[2017-07-29] MEDS: HYDROCODONE/ACETAMOPHEN 5/325MG TAB PO PRN ×2 (03:47→08:03)
[2017-07-29] MEDS: NSS + 20MEQ KCL 1000ML 1,000 ML IV SCH ×2 (05:36→15:47)
[2017-07-29] MEDS: ONDANSETRON INJ 2 MG/ML 2 ML VIAL IV PRN ×2 (06:18→18:43)
[2017-07-29] MEDS: INSULIN ASPART 100 UNITS/ML 3 ML PEN SC SCH ×4 (06:30→20:17)
[2017-07-29] MEDS: ACETAMINOPHEN 325 MG TAB PO PRN (06:41)
[2017-07-29] MEDS: LOSARTAN POTASSIUM 50 MG TAB PO SCH (08:00)
[2017-07-29] MEDS: POTASSIUM CHLORIDE 20 MEQ TABCR PO SCH (08:00)
[2017-07-29] MEDS: PANTOprazole SOD 40 MG TAB PO SCH (08:00)
[2017-07-29] MEDS: DOCUSATE SODIUM 100 MG CAP PO SCH ×2 (08:00→20:00)
[2017-07-29] MEDS: CHECK FENTANYL PATCH PLACEMENT SCH ×2 (08:00→15:54)
[2017-07-29] MEDS: OXYBUTYNIN CHLORIDE 5 MG TABCR PO SCH (08:00)
[2017-07-29] MEDS: FUROSEMIDE 20 MG TAB PO SCH (08:00)
[2017-07-29] MEDS: DRONABINOL 2.5 MG CAP PO SCH ×2 (08:00→20:00)
[2017-07-29] MEDS: POT PHOSPHATE MONOBASIC W/ SOD TAB PO SCH ×4 (08:00→20:00)
[2017-07-29] MEDS: CEROVITE ADV FORMULA TAB PO SCH (08:00)
[2017-07-29] MEDS: LIDODERM (LIDOCAINE) PATCH 5% TD SCH (08:10)
[2017-07-29] MEDS: FENTANYL PATCH REMOVE & WASTE SCH (08:15)
[2017-07-29] MEDS: FENTANYL 25 MCG/HR TDSY TD SCH (08:18)
[2017-07-29] MEDS ORDERED: NURSING VERBAL MED ORDER ONE ×2 (09:00→23:00)
[2017-07-29] MEDS ORDERED: DEXTROSE 50% 50 ML SYR IV ONE (09:15)
[2017-07-29] MEDS ORDERED: HYDROmorphone HCL 2 MG TAB PO ONE (09:15)
--- NOTE | 2017-07-29 10:41 | Progress Note ---
Subjective Date of Service: Jul 29, 2017. Subjective Pt evaluation today including: conversation w/ patient, conversation w/ family , physical exam, chart review, lab review, review of inpatient medication list Problem List Medical Problems: (1) Diarrhea Status: Acute (2) Head injury Status: Acute (3) Hypokalemia Status: Acute (4) Hypomagnesemia Status: Acute (5) Hypomagnesemia Status: Acute (6) Neutropenia Status: Acute (7) Pancytopenia Status: Acute (8) Pancytopenia Status: Acute (9) Pancytopenia Status: Acute (10) Sepsis Status: Acute (11) Somnolence Status: Acute (12) UTI (urinary tract infection) Status: Acute Review of Systems Constitutional: + weakness, + fatigue, No see HPI, No fever, No chills, No sweats, No weight loss, No problem reported Eyes: No see HPI, No worsening of vision, No eye pain, No redness, No discharge , No diplopia, No problem reported ENT: No see HPI, No hearing loss, No unusual epistaxis, No nasal symptoms, No sore throat, No tinnitus, No dental problems, No trouble swallowing, No problem reported Respiratory: No see HPI, No cough, No sputum, No wheezing, No shortness of breath, No dyspnea on exertion, No dyspnea at rest, No hemoptysis, No problem reported Cardiac: No see HPI, No chest pain, No orthopnea, No PND, No edema, No claudication, No palpitations, No problem reported Abdomen: No see HPI, No pain, No nausea, No vomiting, No diarrhea, No constipation, No GI bleeding, No problem reported Musculoskeletal: + joint pain, + muscle pain, + problem reported (severe intractable back pain), No see HPI, No swelling, No calf pain Neurologic: No see HPI, No memory loss, No paralysis, No weakness, No numbness/ tingling, No vertigo, No balance problems, No problem reported Psychiatric: No see HPI, No depression symptoms, No anhedonism, No anxiety, No insomnia, No substance abuse, No problem reported Heme: No see HPI, No abnormal bleeding/bruising, No clotting problems, No swollen lymph nodes, No night sweats, No problem reported Endo: No see HPI, No fatigue, No excessive thirst, No excessive urination, No problem reported Skin: No see HPI, No rash, No itch, No new/changing skin lesions, No color change, No bleeding, No problem reported Objective Vital Signs Date Time Temp Pulse Resp B/P (MAP) Pulse Ox O2 Delivery O2 Flow Rate FiO2 07/29/17 07:43 Room Air 07/29/17 07:25 36.8 88 17 177/95 (122) 96 Room Air 07/29/17 04:18 36.6 88 20 171/90 (117) 94 Room Air 07/29/17 00:00 Room Air 07/28/17 23:27 36.3 82 18 172/86 (114) 97 Room Air 07/28/17 20:00 Room Air 07/28/17 18:59 36.6 76 18 165/81 (109) 96 Room Air 07/28/17 16:00 Room Air 07/28/17 14:55 36.3 90 18 167/90 (115) 95 Room Air Physical Exam General Appearance: + severe distress, + obese Eyes: EOMI, + pertinent finding (pinpoint pupil) ENT: normal ENT inspection, hearing grossly normal Neck: supple Respiratory/Chest: chest non-tender, lungs clear, normal breath sounds, no respiratory distress Cardiovascular: regular rate, rhythm, no edema, no gallop, no JVD, no murmur Abdomen: normal bowel sounds, non tender, soft, no organomegaly Extremities: normal range of motion, non-tender, normal inspection, no pedal edema 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 Recently she had a fall and was admitted to the hospital. Then from the hospital she was discharged to rehabilitation. On July 24 she was discharged from rehabilitation to her house. She spent the night there but yesterday she went to the bathroom and was not able to stand up due to severe weakness. Significant weakness was manifested in her left lower extremity that gives up on her. Patient came to the hospital for further evaluation and management. Significant generalized weakness and deconditioning. PT/OT Continue supportive care Plan for rehabilitation discharge. Nutrition supplement. Severe back pain/ unfortunately today her back pain is intractable Due to her current active cancer, MRI lumbar spine was none, and showed acute compression fracture in L1 Orthopedic surgeon was consulted. Started her on Dilaudid accompanied by Phenergan as narcotics give her nausea in the past Based on discussion with Dr. Fajardo, consulted palliative care Dr. Levy Discussed with family and patient and they agree with the plan Pyuria present on admission Unsure if it's a full-blown UTI, does have full known staghorn calculus and stent on the right urethra, petechiae and it's a complicated UTI that might require significant IV antibiotic. Follow-up urine cultures, so far urine cultures are negative but lost urine culture was positive for Escherichia coli that was sensitive to Macrobid, we will have low tolerance to treat, consider also chronic suppression with Macrobid a few UTIs confirmed B-cell lymphoma, continue chemotherapy as an outpatient Diabetes mellitus type 2, will place her on sliding scale DVT prophylaxis/SCD boot as platelets count only fluctuating from 75-95
[2017-07-29] MEDS: PROMETHAZINE HCL INJ 12.5 MG in SODIUM CHLORIDE 0.9% 50ML 50 ML IV PRN ×2 (11:01→23:35)
[2017-07-29] MEDS: HYDROmorphone INJ 1 MG/ML SYR IV PRN ×2 (11:05→18:42)
--- NOTE | 2017-07-29 14:36 | CONSULTATION REPORT ---
DATE OF CONSULTATION: 07/29/2017 ADDENDUM: I have reviewed the films and plan with Dr. Felipe and given her weakness in her lower extremities and location of her pain, I believe that an MRI of the pelvis would be warranted. I did make that recommendation if medicine believes she can tolerate the test to look for any other pathology as the L1 fracture is not likely contributing to this pain lower down nor the weakness in her legs.
--- NOTE | 2017-07-29 14:41 | CONSULTATION REPORT ---
DATE OF CONSULTATION: 07/29/2017 DATE OF CONSULTATION: 07/29/2017 CHIEF COMPLAINT: Lower back pain. HISTORY OF PRESENT ILLNESS: Mrs. Perez is a 77-year-old female who is currently undergoing chemotherapy for her B cell lymphoma. She was admitted to the hospital from July 11 to the 24 of July and returned home with home care. She was brought back to the hospital due to inability to stand and walk. Per the family she had taken a fall approximately 2 weeks ago but started developing extreme lower back pain over the past 3-4 days. The pain is all low down in the back and sacral and rectal region. She is not complaining of any pain going down her legs at this point. She has not walked in over 2 weeks. She does not recall having specific back pain after her fall 2 weeks ago. She denies any other falls, just inability to stand and walk due to her weakness. She denies any other numbness, tingling or paresthesias. PAST MEDICAL HISTORY: Significant for her B cell lymphoma, COPD, hypertension, spastic bladder, gastric reflux, diabetes. CURRENT MEDICATIONS: Include albuterol, allopurinol, Colace, Marinol, Duragesic, Flonase, folic acid, Lasix, hydrocodone, lidocaine patches, losartan, multivitamins, oxybutynin, pantoprazole, potassium, Boniva, Tylenol, Tums, meclizine, Zofran, Compazine. ALLERGIES: SHE HAS ALLERGIES TO CEPHALOSPORINS, CIPROFLOXACIN, PENICILLINS. REVIEW OF SYSTEMS: Recorded in the patient's medical history. SOCIAL HISTORY: She is a nonsmoker, denies any alcohol or illicit drug use. She is , lives with her family and is retired. PHYSICAL EXAMINATION: GENERAL: She is in visible pain. She notes all the pain into the lower sacral and rectal region. She is nontender along the T12-L1 segment. She is nontender with log rolling of the hips. Motor exam reveals no focal atrophy. Strength 5/5 to detailed muscle testing in the anterior tibialis, extensor hallucis longus, plantar flexion, dorsiflexion, quadriceps, and hip flexors. ABDOMEN: Soft, nontender. EXTREMITIES: Calves are supple and nontender. RADIOGRAPHIC IMAGES: MRI of the lumbar spine from 07/27/2017 is available for review. This reveals an L1 compression fracture with an inferior endplate fracture. There is edema of the bone, likely making this acute. There is diffuse mottling through the sacral region and the lower lumbar vertebrae. The canal itself is widely patent. There does not to be any high grade spinal stenosis or large disc herniations. There are no fragments in the canal from the L1 fracture. ASSESSMENT: L1 compression fracture with intractable lower back pain. PLAN: It does seem a lot of her pain does not directly correlate with the actual fracture itself. I would like to obtain some plain x-rays of the back itself with weightbearing to see the overall alignment of the spine itself. I do not believe that she is braceable at this point. At some point a kyphoplasty could be considered for pain control but I am not convinced that the L1 fracture is causing all of her pain. This may be more of a sequelae from her lymphoma as it appears that she has been on quite a few different medications to help control pain even prior to this admission. I will review the films once they are performed and make further recommendations. JUAN
[2017-07-29] MEDS: OXYCODONE/ACETAMINOPHEN 10/325MG TAB PO PRN (15:47)
[2017-07-29] MEDS: DEXTROSE 50% 50 ML SYR IV PRN (16:54)
--- NOTE | 2017-07-29 18:21 | Palliative Care Consultation ---
Consultation Date of Consultation: Jul 29, 2017. Requesting Physician: Dr Fajardo Attending Physician: Dr Jeter Reason for Consultation: Goals of care and pain management History of Present Illness Pt's son at bedside, pt sedated due to Phenergan + IV Dilaudid Pt is known to me - saw pt for Palliative consult when she was in [facility] in May. Pt is a 77 yo female with High Grade B cell Lymphoma - diagnosed in March of this year. Pt did not tolerate full dose chemo but was determined to "get better" and was to restart chemo at a lower dose. Pt has not done well , but is not accepting of her prognosis and current debility. Pt had not been doing well at home and was having increased weakness and back pain . MRI on 07/27 showed compression fracture L1. Pt evaluated and pain location not correlating well with MRI findings - further evaluation is planned. Pt is not able to report sx at this time due to sedation. Pt able to answer a few questions, most of history was per her son. Pt has been on Fentanyl patch for awhile - pt not able to report, but she was not on it in May . In May she was OOB , requiring help with transfer , but was only prn [place] for pain. Pt with nausea with opioids - Phenergan effective , but adds to sedation. Pt relies on sister for decision making and will need to meet with pt and sister when she is more alert to re-discuss code status and POC. Pt's CBC showed 1.8% myelocytes with 4.4% metamyelocytes. Past Medical/Surgical History Medical History: B cell Lymphoma, gout, h/o DVT, HTN, h/o hydronephrosis due to renal calculus, h /o C diff , hyperglycemia on Januvia Family History HTN Social History Smoking Status: Never Smoker History of Alcohol Use: No Drug Use: none Marital Status: Housing Status: lives with family Occupation Status: retired Review of Systems Unable to obtain due to pt's level of sedation Allergies Coded Allergies: Cephalosporins (Unverified Allergy, Intermediate, BREATHING PROBLEMS, ) Ciprofloxacin (Verified Allergy, Intermediate, RASH, 07/05/17) Phlebitis Penicillins (Verified Allergy, Mild, HIVES, 07/05/17) Medications Current Inpatient Medications Medications (Trade) Dose Ordered Sig/[place] Route Start Time Stop Time Status Last Admin Dose Admin Acetaminophen (Tylenol Tab) 650 mg Q4H PRN PO 07/25/17 18:15 08/24/17 18:14 07/29/17 06:41 650 MG Albuterol (Ventolin Hfa Inhaler) 2 puffs QID PRN INH 07/25/17 18:15 08/24/17 18:14 Allopurinol (Zyloprim Tab) 200 mg QPM PO 07/25/17 21:00 08/24/17 20:59 07/27/17 21:18 200 MG Calcium Carbonate (Tums Chew Tab) 500 mg Q4 PRN PO 07/25/17 18:15 08/24/17 18:14 Docusate Sodium (coLACE CAP) 100 mg AMHS PO 07/25/17 20:00 08/24/17 20:59 07/27/17 21:15 100 MG Dronabinol (Marinol Cap) 2.5 mg BID PO 07/25/17 20:00 08/24/17 20:59 07/27/17 21:14 2.5 MG Fentanyl (Duragesic Patch) 25 mcg Q72H TD 07/26/17 09:00 08/09/17 08:59 07/29/17 08:18 25 MCG Folic Acid (Folvite Tab) 1 mg QAM PO 07/26/17 08:00 08/25/17 08:59 Furosemide (Lasix Tab) 20 mg QAM PO 07/26/17 08:00 08/25/17 08:59 07/26/17 12:51 20 MG Lidocaine (Lidoderm Patch 5%) 1 patch QAM TD 07/26/17 08:00 08/25/17 08:59 07/29/17 08:10 1 PATCH Losartan Potassium (coZAAR TAB) 100 mg DAILY PO 07/26/17 08:00 08/25/17 08:59 07/26/17 12:50 100 MG Meclizine HCl (Antivert Tab) 25 mg TID PRN PO 07/25/17 18:15 08/24/17 18:14 07/28/17 21:48 25 MG Multivitamins/ Minerals (Multivitamin W/ Minerals Tab) 1 tab DAILY PO 07/26/17 08:00 08/25/17 08:59 Ondansetron HCl (Zofran Odt) 8 mg Q6H PRN SL 07/25/17 18:15 08/24/17 18:14 07/28/17 22:12 8 MG Oxybutynin Chloride (Ditropan-Xl Tab) 10 mg QAM PO 07/26/17 08:00 08/25/17 08:59 Pantoprazole Sodium (Protonix Tab) 40 mg DAILY PO 07/26/17 08:00 08/25/17 08:59 Potassium/ Phosphorus/Sodium (Phospha 250 Neutral 155-852-130 Mg) 1 tab QID PO 07/25/17 20:00 08/24/17 20:59 07/26/17 21:07 1 TAB Potassium Chloride (Klor-Con Tab) 40 meq DAILY PO 07/26/17 08:00 08/25/17 08:59 07/26/17 12:51 40 MEQ Prochlorperazine (Compazine Supp) 25 mg Q6H PRN IN 07/25/17 18:15 08/24/17 18:14 07/28/17 16:20 25 MG Senna/Docusate Sodium (Senokot S Tab) 1 tab Q24H PRN PO 07/25/17 18:15 08/24/17 18:14 Miscellaneous (Remove Lidoderm Patch) 1 ea DAILY@21 N/A 07/25/17 21:00 08/24/17 20:59 07/28/17 19:38 1 EA Ondansetron HCl (Zofran Inj) 4 mg Q6H PRN IV 07/25/17 18:30 08/24/17 18:29 07/29/17 06:18 4 MG Potassium Chloride/Sodium Chloride 1,000 ml @ 100 mls/hr Q10H IV 07/25/17 22:00 08/24/17 18:20 07/29/17 15:47 100 MLS/HR Miscellaneous (Iv Fluids Completed) 1 ea PRN PRN N/A 07/25/17 18:30 07/25/18 18:29 07/26/17 10:28 1 EA Miscellaneous (Fentanyl Patch Remove & Waste) 1 ea Q3D@0859 N/A 07/26/17 08:59 08/25/17 08:58 07/29/17 08:15 1 EA Miscellaneous Information (Check Fentanyl Patch Placement) 1 ea QS N/A 07/26/17 00:00 08/25/17 00:00 07/29/17 15:54 1 EA Insulin Aspart (novoLOG ASPART) SLIDING SCALE If C... ACHS SC 07/26/17 21:00 08/25/17 20:59 Glucose (Glucose 40% Gel) 15-30 GRAMS 15 GRAMS... UD PRN PO 07/26/17 19:45 08/25/17 19:44 Glucose (Glucose Chew Tab) 4-8 Tablets 4 Tabl... UD PRN PO 07/26/17 19:45 08/25/17 19:44 Dextrose (Dextrose 50% 50ML Syringe) 25-50ML OF 50% DW IV FOR... UD PRN IV 07/26/17 19:45 08/25/17 19:44 07/29/17 16:54 25 ML Glucagon (Glucagon Inj) 1 mg UD PRN SQ 07/26/17 19:45 08/25/17 19:44 Oxycodone/ Acetaminophen (Percocet 10-325MG Tab) 1 tab Q4H PRN PO 07/28/17 07:30 08/11/17 07:29 07/29/17 15:47 1 TAB Heparin Sodium (Porcine) (Heparin 10 Unit/ ml 5 ml Flush) 5 ml PRN PRN FLUSH 07/28/17 23:45 08/27/17 23:44 07/29/17 10:46 5 ML Hydromorphone HCl (Dilaudid Tab) 2 mg Q8 PRN PO 07/29/17 08:45 08/12/17 08:44 Hydromorphone HCl (Dilaudid Inj) 1 mg Q6 PRN IV 07/29/17 10:15 08/12/17 10:14 07/29/17 11:05 1 MG Promethazine HCl 12.5 mg/Sodium Chloride 50.5 ml @ 204 mls/hr Q6H PRN IV 07/29/17 10:15 08/28/17 10:14 07/29/17 11:01 204 MLS/HR Physical Exam Date Time Temp Pulse Resp B/P (MAP) Pulse Ox O2 Delivery O2 Flow Rate FiO2 07/29/17 16:10 36.7 85 18 173/92 (119) 100 Nasal Cannula 4.0 07/29/17 16:00 99 Nasal Cannula 4.0 07/29/17 11:34 72 14 155/80 (105) 99 Nasal Cannula 4.0 07/29/17 11:27 71 16 169/74 (105) 100 Nasal Cannula 4.0 07/29/17 07:43 Room Air 07/29/17 07:25 36.8 88 17 177/95 (122) 96 Room Air 07/29/17 04:18 36.6 88 20 171/90 (117) 94 Room Air 07/29/17 00:00 Room Air 07/28/17 23:27 36.3 82 18 172/86 (114) 97 Room Air 07/28/17 20:00 Room Air 07/28/17 18:59 36.6 76 18 165/81 (109) 96 Room Air General Appearance: no apparent distress, + pertinent finding (sedated, appears comfortable) Eyes: EOMI ENT: hearing grossly normal Respiratory: no respiratory distress Cardiovascular: regular rate, rhythm, + pertinent finding (2 + edema) Abdomen: non tender Musculoskeletal: abnormal strength Neurologic/Psychiatric: + pertinent finding (drowsy) Skin: warm/dry Laboratory Results Last 24 Hours Test 07/28/17 19:59 07/29/17 07:48 07/29/17 08:06 07/29/17 08:21 Bedside Glucose 83 mg/dl 58 mg/dl 65 mg/dl 69 mg/dl Test 07/29/17 08:34 07/29/17 09:50 07/29/17 11:47 07/29/17 16:27 Bedside Glucose 71 mg/dl 89 mg/dl 82 mg/dl 66 mg/dl Test 07/29/17 17:15 Bedside Glucose 107 mg/dl Assessment & Plan Palliative Performance Scale: 30 % (1) Lymphoma Status: Chronic Assessment & Plan: Pt with High grade B cell Lymphoma - recent chemo (2) Weakness Status: Acute Assessment & Plan: Had improved in rehab in May - now increasing (3) Back pain Status: Acute Assessment & Plan: Cont Fentanyl patch - son reports pt is not a candidate for kyphoplasty, further studies planned - cont prn opioids Plan to discuss goals and POC when pt more alert and sister present. Will offer methadone for pain if no other interventions are offered. Will need to re-address code status when pt alert and sister is present. Total time : 55 min with <> 50 % of time spent at bedside discussing prognosis and treatment options with pt and pt's son
[2017-07-29] MEDS ORDERED: D5W AND NSS 1,000 ML IV ONE (20:00)
[2017-07-29] MEDS: ALLOPURINOL 100 MG TAB PO SCH (20:16)
[2017-07-29] MEDS: HYDROmorphone HCL 2 MG TAB PO PRN (23:04)
[2017-07-30] MEDS: CHECK FENTANYL PATCH PLACEMENT SCH ×3 (00:15→15:47)
[2017-07-30] MEDS: HYDROmorphone INJ 1 MG/ML SYR IV PRN ×5 (00:15→23:59)
[2017-07-30] MEDS: ONDANSETRON INJ 2 MG/ML 2 ML VIAL IV PRN ×4 (06:18→23:59)
[2017-07-30] MEDS: INSULIN ASPART 100 UNITS/ML 3 ML PEN SC SCH ×4 (06:30→20:50)
[2017-07-30] MEDS: POTASSIUM CHLORIDE 20 MEQ TABCR PO SCH ×2 (08:00→08:25)
[2017-07-30] MEDS: POT PHOSPHATE MONOBASIC W/ SOD TAB PO SCH ×5 (08:00→20:00)
[2017-07-30] MEDS: CEROVITE ADV FORMULA TAB PO SCH ×2 (08:00→08:24)
[2017-07-30] MEDS: PANTOprazole SOD 40 MG TAB PO SCH ×2 (08:00→08:24)
[2017-07-30] MEDS: LOSARTAN POTASSIUM 50 MG TAB PO SCH ×2 (08:00→08:24)
[2017-07-30] MEDS: FUROSEMIDE 20 MG TAB PO SCH ×2 (08:00→08:27)
[2017-07-30] MEDS: OXYBUTYNIN CHLORIDE 5 MG TABCR PO SCH ×2 (08:00→08:27)
[2017-07-30] MEDS: HYDROmorphone HCL 2 MG TAB PO PRN ×2 (08:21→16:21)
[2017-07-30] MEDS: LIDODERM (LIDOCAINE) PATCH 5% TD SCH (08:23)
[2017-07-30] MEDS: DOCUSATE SODIUM 100 MG CAP PO SCH ×2 (08:24→20:00)
[2017-07-30] MEDS: DRONABINOL 2.5 MG CAP PO SCH ×2 (08:29→20:49)
[2017-07-30 08:36] VITALS: BP 162/77; PULSE 92; TEMP 36.6; O2SAT 99
[2017-07-30] MEDS: PROMETHAZINE HCL INJ 12.5 MG in SODIUM CHLORIDE 0.9% 50ML 50 ML IV PRN ×2 (08:43→16:21)
[2017-07-30 11:33] VITALS: BP 156/83; PULSE 111; TEMP 36.4; O2SAT 100
--- NOTE | 2017-07-30 14:45 | Progress Note ---
Subjective Date of Service: Jul 30, 2017. Subjective Pt evaluation today including: conversation w/ patient, conversation w/ family , physical exam, chart review, lab review, review of inpatient medication list Problem List Medical Problems: (1) Diarrhea Status: Acute (2) Head injury Status: Acute (3) Hypokalemia Status: Acute (4) Hypomagnesemia Status: Acute (5) Hypomagnesemia Status: Acute (6) Neutropenia Status: Acute (7) Pancytopenia Status: Acute (8) Pancytopenia Status: Acute (9) Pancytopenia Status: Acute (10) Sepsis Status: Acute (11) Somnolence Status: Acute (12) UTI (urinary tract infection) Status: Acute Review of Systems Constitutional: + weakness, + fatigue, No see HPI, No fever, No chills, No sweats, No weight loss, No problem reported Eyes: No see HPI, No worsening of vision, No eye pain, No redness, No discharge , No diplopia, No problem reported ENT: No see HPI, No hearing loss, No unusual epistaxis, No nasal symptoms, No sore throat, No tinnitus, No dental problems, No trouble swallowing, No problem reported Respiratory: No see HPI, No cough, No sputum, No wheezing, No shortness of breath, No dyspnea on exertion, No dyspnea at rest, No hemoptysis, No problem reported Cardiac: No see HPI, No chest pain, No orthopnea, No PND, No edema, No claudication, No palpitations, No problem reported Abdomen: No see HPI, No pain, No nausea, No vomiting, No diarrhea, No constipation, No GI bleeding, No problem reported Musculoskeletal: + joint pain, + muscle pain, + calf pain, + problem reported ( back pain) Neurologic: No see HPI, No memory loss, No paralysis, No weakness, No numbness/ tingling, No vertigo, No balance problems, No problem reported Psychiatric: No see HPI, No depression symptoms, No anhedonism, No anxiety, No insomnia, No substance abuse, No problem reported Heme: No see HPI, No abnormal bleeding/bruising, No clotting problems, No swollen lymph nodes, No night sweats, No problem reported Endo: No see HPI, No fatigue, No excessive thirst, No excessive urination, No problem reported Skin: No see HPI, No rash, No itch, No new/changing skin lesions, No color change, No bleeding, No problem reported Objective Vital Signs Date Time Temp Pulse Resp B/P (MAP) Pulse Ox O2 Delivery O2 Flow Rate FiO2 07/30/17 11:33 36.4 111 20 156/83 (107) 100 Nasal Cannula 4.0 07/30/17 08:36 36.6 92 20 162/77 (105) 99 07/30/17 08:00 Nasal Cannula 4.0 07/30/17 00:00 Nasal Cannula 4.0 07/29/17 20:29 36.3 96 16 148/84 (105) 99 Nasal Cannula 4.0 07/29/17 16:10 36.7 85 18 173/92 (119) 100 Nasal Cannula 4.0 07/29/17 16:00 99 Nasal Cannula 4.0 Physical Exam General Appearance: + mild distress, + obese Eyes: normal inspection, EOMI, + pertinent finding (constricted pupils) ENT: normal ENT inspection, hearing grossly normal Neck: supple Respiratory/Chest: chest non-tender, lungs clear, normal breath sounds, no respiratory distress Cardiovascular: regular rate, rhythm, no edema, no gallop, no JVD Abdomen: normal bowel sounds, non tender, soft, no organomegaly Extremities: normal range of motion, no calf tenderness, + swelling 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 Recently she had a fall and was admitted to the hospital. Then from the hospital she was discharged to rehabilitation. On July 24 she was discharged from rehabilitation to her house. She spent the night there but yesterday she went to the bathroom and was not able to stand up due to severe weakness. Significant weakness was manifested in her left lower extremity that gives up on her. Patient came to the hospital for further evaluation and management. Significant generalized weakness and deconditioning. PT/OT Continue supportive care Plan for rehabilitation discharge. Nutrition supplement. Severe back pain/ unfortunately today her back pain is intractable Due to her current active cancer, MRI lumbar spine was none, and showed acute compression fracture in L1 Orthopedic surgeon was consulted. Any surgical intervention is deferred until her general condition improves Started her on Dilaudid accompanied by Phenergan as narcotics give her nausea in the past consult palliative care Dr. Levy, appreciated Discussed with family and patient and they agree with the plan Pyuria present on admission Unsure if it's a full-blown UTI, does have full known staghorn calculus and stent on the right urethra, petechiae and it's a complicated UTI that might require significant IV antibiotic. Follow-up urine cultures, so far urine cultures are negative but lost urine culture was positive for Escherichia coli that was sensitive to Macrobid, we will have low tolerance to treat, consider also chronic suppression with Macrobid a few UTIs confirmed B-cell lymphoma, continue chemotherapy as an outpatient Diabetes mellitus type 2, will place her on sliding scale DVT prophylaxis/SCD boot as platelets count only fluctuating from 75-95
[2017-07-30 15:41] VITALS: BP 116/73; PULSE 99; TEMP 36.5; O2SAT 100
[2017-07-30 19:46] VITALS: BP 106/71; PULSE 106; TEMP 36.4; O2SAT 98
[2017-07-30] MEDS: ALLOPURINOL 100 MG TAB PO SCH (20:50)
[2017-07-30 23:29] VITALS: BP 98/64; PULSE 104; TEMP 36.7; O2SAT 98
[2017-07-31 03:38] VITALS: BP 128/80; PULSE 98; TEMP 36.5; O2SAT 99
[2017-07-31] MEDS: HYDROmorphone INJ 1 MG/ML SYR IV PRN ×2 (06:04→21:30)
[2017-07-31] MEDS: ONDANSETRON INJ 2 MG/ML 2 ML VIAL IV PRN ×2 (06:04→19:40)
[2017-07-31 06:22] LABS: BASO % 1.3 %; BASO ABS # 0.13 K/uL (0-0.2); COMPLETE YES; EOS % 0.3 %; HEMATOCRIT 30.4 % (37-47); IG% 4.8 %; LYMPH % 9.2 %; MEAN CELL VOLUME 94.1 fL (80-100); MEAN CORPUSCULAR HEMOGLOBIN 30.7 pg (25-34); MEAN CORPUSCULAR HGB CONC 32.6 g/dl (32-36); MEAN PLATELET VOLUME 8.9 fL (7.4-10.4); MONO % 14.4 %; PLATELET COUNT 138 K/uL (130-400); RED BLOOD COUNT 3.23 M/uL (4.2-5.4); WHITE BLOOD COUNT 9.74 K/uL (4.8-10.8)
[2017-07-31] MEDS: INSULIN ASPART 100 UNITS/ML 3 ML PEN SC SCH ×4 (06:30→20:51)
[2017-07-31 07:08] LABS: BUN/CREATININE RATIO 4.1 (10-20); CALCIUM 8.2 mg/dl (8.5-10.1); CREATININE 0.7 mg/dl (0.60-1.20); POTASSIUM 3.8 mmol/L (3.5-5.1)
[2017-07-31 07:11] LABS: ALB/GLOB RATIO 1.1 (0.9-2)
[2017-07-31 07:39] VITALS: BP 120/74; PULSE 94; TEMP 36.5; O2SAT 97
[2017-07-31 08:00] VITALS: O2SAT 96
[2017-07-31] MEDS: CHECK FENTANYL PATCH PLACEMENT SCH ×4 (08:08→23:49)
[2017-07-31] MEDS: POT PHOSPHATE MONOBASIC W/ SOD TAB PO SCH ×4 (08:11→20:50)
[2017-07-31] MEDS: CEROVITE ADV FORMULA TAB PO SCH (08:11)
[2017-07-31] MEDS: PANTOprazole SOD 40 MG TAB PO SCH (08:12)
[2017-07-31] MEDS: OXYBUTYNIN CHLORIDE 5 MG TABCR PO SCH (08:12)
[2017-07-31] MEDS: LOSARTAN POTASSIUM 50 MG TAB PO SCH (08:13)
[2017-07-31] MEDS: FUROSEMIDE 20 MG TAB PO SCH (08:13)
[2017-07-31] MEDS: POTASSIUM CHLORIDE 20 MEQ TABCR PO SCH (08:13)
[2017-07-31] MEDS: LIDODERM (LIDOCAINE) PATCH 5% TD SCH (08:14)
[2017-07-31] MEDS: DOCUSATE SODIUM 100 MG CAP PO SCH ×2 (08:14→20:50)
[2017-07-31] MEDS: ACETAMINOPHEN 325 MG TAB PO PRN ×2 (08:19→19:45)
[2017-07-31] MEDS: DRONABINOL 2.5 MG CAP PO SCH ×2 (08:19→20:50)
[2017-07-31] MEDS: HYDROmorphone HCL 2 MG TAB PO PRN ×2 (09:28→17:33)
[2017-07-31] MEDS: ONDANSETRON 8MG OD TAB SL PRN (09:28)
[2017-07-31] MEDS: OXYCODONE HCL 20 MG TABCR (OXYCONTIN) PO SCH ×3 (11:00→23:02)
[2017-07-31 11:14] VITALS: BP 121/75; PULSE 97; TEMP 36.4; O2SAT 98
[2017-07-31 15:08] VITALS: BP 147/78; PULSE 104; TEMP 36.5; O2SAT 99
--- NOTE | 2017-07-31 17:13 | Progress Note ---
Subjective Date of Service: Jul 31, 2017. Subjective Pt evaluation today including: conversation w/ patient, conversation w/ family , physical exam, chart review, lab review, review of studies, review of inpatient medication list Problem List Medical Problems: (1) Diarrhea Status: Acute (2) Head injury Status: Acute (3) Hypokalemia Status: Acute (4) Hypomagnesemia Status: Acute (5) Hypomagnesemia Status: Acute (6) Neutropenia Status: Acute (7) Pancytopenia Status: Acute (8) Pancytopenia Status: Acute (9) Pancytopenia Status: Acute (10) Sepsis Status: Acute (11) Somnolence Status: Acute (12) UTI (urinary tract infection) Status: Acute Review of Systems Constitutional: + weakness, + fatigue, No see HPI, No fever, No chills, No sweats, No weight loss Eyes: No see HPI, No worsening of vision, No eye pain, No redness, No discharge , No diplopia, No problem reported ENT: No see HPI, No hearing loss, No unusual epistaxis, No nasal symptoms, No sore throat, No tinnitus, No dental problems, No trouble swallowing, No problem reported Respiratory: No see HPI, No cough, No sputum, No wheezing, No shortness of breath, No dyspnea on exertion, No dyspnea at rest, No hemoptysis, No problem reported Cardiac: No see HPI, No chest pain, No orthopnea, No PND, No edema, No claudication, No palpitations, No problem reported Abdomen: + pain, + nausea, No see HPI, No vomiting, No diarrhea, No constipation, No GI bleeding, No problem reported Female : No see HPI, No dysuria, No urinary frequency, No hematuria, No incontinence, No abnormal vaginal bleeding, No vaginal discharge, No problem reported Neurologic: No see HPI, No memory loss, No paralysis, No weakness, No numbness/ tingling, No vertigo, No balance problems, No problem reported Psychiatric: No see HPI, No depression symptoms, No anhedonism, No anxiety, No insomnia, No substance abuse, No problem reported Heme: No see HPI, No abnormal bleeding/bruising, No clotting problems, No swollen lymph nodes, No night sweats, No problem reported Endo: No see HPI, No fatigue, No excessive thirst, No excessive urination, No problem reported Skin: No see HPI, No rash, No itch, No new/changing skin lesions, No color change, No bleeding, No problem reported Objective Vital Signs Date Time Temp Pulse Resp B/P (MAP) Pulse Ox O2 Delivery O2 Flow Rate FiO2 07/31/17 16:00 Room Air 07/31/17 15:08 36.5 104 20 147/78 (101) 99 07/31/17 11:14 36.4 97 20 121/75 (90) 98 07/31/17 08:00 96 Nasal Cannula 4.0 07/31/17 07:39 36.5 94 20 120/74 (89) 97 07/31/17 03:38 36.5 98 16 128/80 (96) 99 Nasal Cannula 4.5 07/31/17 00:00 Nasal Cannula 4.0 07/30/17 23:29 36.7 104 14 98/64 (75) 98 Nasal Cannula 4.5 07/30/17 19:46 36.4 106 18 106/71 (83) 98 Nasal Cannula 4.5 Physical Exam General Appearance: + mild distress, + obese Eyes: normal inspection, EOMI ENT: normal ENT inspection, hearing grossly normal Neck: supple Respiratory/Chest: chest non-tender, lungs clear, normal breath sounds, no respiratory distress, no accessory muscle use Cardiovascular: regular rate, rhythm, no edema, no gallop, no JVD, no murmur Abdomen: normal bowel sounds, non tender, soft, no organomegaly, no pulsatile mass Extremities: normal range of motion, non-tender, normal inspection, no pedal edema Neurologic/Psychiatric: machine steak 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 II-XII nml as tested, no motor/sensory deficits, alert, normal mood/affect, oriented x 3 Skin: normal color, warm/dry, no rash Laboratory Results Last 24 Hours Test 07/30/17 20:38 07/31/17 05:07 07/31/17 07:16 07/31/17 11:23 Bedside Glucose 94 mg/dl 89 mg/dl 92 mg/dl White Blood Count 9.74 K/uL Red Blood Count 3.23 M/uL Hemoglobin 9.9 g/dL Hematocrit 30.4 % Mean Corpuscular Volume 94.1 fL Mean Corpuscular Hemoglobin 30.7 pg Mean Corpuscular Hemoglobin Concent 32.6 g/dl Platelet Count 138 K/uL Mean Platelet Volume 8.9 fL Neutrophils (%) (Auto) 70.0 % Lymphocytes (%) (Auto) 9.2 % Monocytes (%) (Auto) 14.4 % Eosinophils (%) (Auto) 0.3 % Basophils (%) (Auto) 1.3 % Neutrophils # (Auto) 6.81 K/uL Lymphocytes # (Auto) 0.90 K/uL Monocytes # (Auto) 1.40 K/uL Eosinophils # (Auto) 0.03 K/uL Basophils # (Auto) 0.13 K/uL RDW Standard Deviation 59.2 fL RDW Coefficient of Variation 17.8 % Immature Granulocyte % (Auto) 4.8 % Immature Granulocyte # (Auto) 0.47 K/uL Sodium Level 141 mmol/L Potassium Level 3.8 mmol/L Chloride Level 107 mmol/L Carbon Dioxide Level 28 mmol/L Anion Gap 6.0 mmol/L Blood Urea Nitrogen 3 mg/dl Creatinine 0.70 mg/dl Est Creatinine Clear Calc Drug Dose 78.5 ml/min Estimated GFR () 98.2 Estimated GFR (Non- 84.8 BUN/Creatinine Ratio 4.1 Random Glucose 81 mg/dl Calcium Level 8.2 mg/dl Total Bilirubin 0.4 mg/dl Aspartate Amino Transf (AST/SGOT) 37 U/L Alanine Aminotransferase (ALT/SGPT) 16 U/L Alkaline Phosphatase 151 U/L Total Protein 4.3 gm/dl Albumin 2.2 gm/dl Globulin 2.1 gm/dl Albumin/Globulin Ratio 1.1 Test 07/31/17 16:07 Bedside Glucose 103 mg/dl Assessment and Plan 77-year-old female with 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 Recently she had a fall and was admitted to the hospital. Then from the hospital she was discharged to rehabilitation. On July 24 she was discharged from rehabilitation to her house. She spent the night there but yesterday she went to the bathroom and was not able to stand up due to severe weakness. Significant weakness was manifested in her left lower extremity that gives up on her. Patient came to the hospital for further evaluation and management. Significant generalized weakness and deconditioning. PT/OT Continue supportive care Plan for rehabilitation discharge. Nutrition supplement. Severe back pain/ acute compression fracture in L1 Due to her current active cancer, MRI lumbar spine reviewed Orthopedic surgeon was consulted. surgical intervention is deferred until her general condition improves Started her on Dilaudid accompanied by Phenergan as narcotics give her nausea in the past Started on OxyContin every 12 hours for pain consult palliative care Dr. Levy, appreciated Discussed with family and patient and they agree with the plan Pyuria present on admission Unsure if it's a full-blown UTI, does have full known staghorn calculus and stent on the right urethra, urine cultures negative Continue to observe of antibiotics B-cell lymphoma, continue chemotherapy as an outpatient Diabetes mellitus type 2, will place her on sliding scale DVT prophylaxis/SCD boot as platelets count only fluctuating from 75-95 Patient is currently full code
[2017-07-31 20:02] VITALS: BP 121/71; PULSE 87; TEMP 36.9; O2SAT 92
[2017-07-31] MEDS: ALLOPURINOL 100 MG TAB PO SCH (20:50)
[2017-08-01] VITALS (8 sets, daily range): BP systolic 126–141; BP diastolic 74–81; PULSE 91–113; TEMP 36.5–36.7; O2SAT 95–99
[2017-08-01] MEDS: ONDANSETRON INJ 2 MG/ML 2 ML VIAL IV PRN ×2 (04:18→20:47)
[2017-08-01] MEDS: HYDROmorphone INJ 1 MG/ML SYR IV PRN ×3 (04:19→21:38)
[2017-08-01] MEDS: INSULIN ASPART 100 UNITS/ML 3 ML PEN SC SCH ×4 (06:30→20:47)
[2017-08-01] MEDS: HYDROmorphone HCL 2 MG TAB PO PRN (07:41)
[2017-08-01] MEDS: ONDANSETRON 8MG OD TAB SL PRN (07:41)
[2017-08-01] MEDS: LIDODERM (LIDOCAINE) PATCH 5% TD SCH (07:47)
[2017-08-01] MEDS: CHECK FENTANYL PATCH PLACEMENT SCH ×2 (07:48→15:27)
[2017-08-01] MEDS: CEROVITE ADV FORMULA TAB PO SCH ×2 (08:00→09:14)
[2017-08-01] MEDS: POT PHOSPHATE MONOBASIC W/ SOD TAB PO SCH ×5 (08:00→19:30)
[2017-08-01] MEDS: POTASSIUM CHLORIDE 20 MEQ TABCR PO SCH (08:00)
[2017-08-01] MEDS: PROMETHAZINE HCL INJ 12.5 MG in SODIUM CHLORIDE 0.9% 50ML 50 ML IV PRN (08:09)
[2017-08-01] MEDS: DRONABINOL 2.5 MG CAP PO SCH ×2 (09:13→19:30)
[2017-08-01] MEDS: OXYBUTYNIN CHLORIDE 5 MG TABCR PO SCH (09:14)
[2017-08-01] MEDS: DOCUSATE SODIUM 100 MG CAP PO SCH ×2 (09:14→19:30)
[2017-08-01] MEDS: PANTOprazole SOD 40 MG TAB PO SCH (09:15)
[2017-08-01] MEDS: FUROSEMIDE 20 MG TAB PO SCH (09:15)
[2017-08-01] MEDS: LOSARTAN POTASSIUM 50 MG TAB PO SCH (09:15)
[2017-08-01] MEDS: FENTANYL 25 MCG/HR TDSY TD SCH (09:16)
[2017-08-01] MEDS: FENTANYL PATCH REMOVE & WASTE SCH (09:18)
[2017-08-01] MEDS ORDERED: NURSING VERBAL MED ORDER ONE ×2 (09:45→14:30)
[2017-08-01] MEDS ORDERED: HYDROmorphone INJ 1 MG/ML SYR IV PRN (09:45)
[2017-08-01 10:45] LABS: HEMATOCRIT 29.8 % (37-47); MEAN CELL VOLUME 94.6 fL (80-100); MEAN CORPUSCULAR HEMOGLOBIN 31.1 pg (25-34); MEAN CORPUSCULAR HGB CONC 32.9 g/dl (32-36); MEAN PLATELET VOLUME 8.9 fL (7.4-10.4); PLATELET COUNT 115 K/uL (130-400); RED BLOOD COUNT 3.15 M/uL (4.2-5.4); WHITE BLOOD COUNT 11.94 K/uL (4.8-10.8)
[2017-08-01 11:03] LABS: BUN/CREATININE RATIO 3.4 (10-20); CALCIUM 8.3 mg/dl (8.5-10.1); CREATININE 1.1 mg/dl (0.60-1.20); POTASSIUM 3.6 mmol/L (3.5-5.1)
[2017-08-01 11:55] LABS: BASOPHIL % 1.7 %; COMPLETE YES; LYMPH ABS # 0.84 K/uL (1.2-3.4); MYELOCYTE % 1.7 %
[2017-08-01] MEDS ORDERED: OPTIRAY 320 IV PRN (13:00)
[2017-08-01] MEDS: OXYCODONE HCL 20 MG TABCR (OXYCONTIN) PO SCH ×2 (13:06→22:35)
--- NOTE | 2017-08-01 15:28 | Progress Note ---
Subjective Date of Service: Aug 01, 2017. Subjective Pt evaluation today including: conversation w/ patient, conversation w/ family , physical exam, chart review, lab review, review of studies, review of inpatient medication list Pt sedated and difficult to arouse Family at bedside Problem List Medical Problems: (1) Diarrhea Status: Acute (2) Head injury Status: Acute (3) Hypokalemia Status: Acute (4) Hypomagnesemia Status: Acute (5) Hypomagnesemia Status: Acute (6) Neutropenia Status: Acute (7) Pancytopenia Status: Acute (8) Pancytopenia Status: Acute (9) Pancytopenia Status: Acute (10) Sepsis Status: Acute (11) Somnolence Status: Acute (12) UTI (urinary tract infection) Status: Acute Review of Systems Unable to obtain due to sedation Objective Vital Signs Date Time Temp Pulse Resp B/P (MAP) Pulse Ox O2 Delivery O2 Flow Rate FiO2 08/01/17 11:36 36.7 91 18 130/77 (94) 99 Nasal Cannula 4.0 08/01/17 09:09 101 141/81 (101) 08/01/17 08:00 Nasal Cannula 3.0 Humidified Oxygen 08/01/17 07:58 36.5 97 18 141/81 (101) 98 3.0 08/01/17 05:45 102 08/01/17 05:05 36.5 113 18 131/78 (95) 98 Nasal Cannula 4.0 Humidified Oxygen 08/01/17 00:02 36.6 98 18 128/74 (92) 95 Nasal Cannula 4.0 07/31/17 23:45 Nasal Cannula 4.0 Humidified Oxygen 07/31/17 20:02 36.9 87 16 121/71 (88) 92 Nasal Cannula 4.0 07/31/17 20:00 Nasal Cannula 4.0 07/31/17 16:00 Room Air Physical Exam General Appearance: WD/WN, no apparent distress, + obese Eyes: normal inspection, PERRL, sclerae normal Neck: supple, no adenopathy, thyroid normal, no JVD Respiratory/Chest: chest non-tender, no respiratory distress, no accessory muscle use, + respiratory distress Cardiovascular: no gallop, no JVD, no murmur, + tachycardia Abdomen: normal bowel sounds, non tender, soft, no organomegaly Extremities: normal range of motion, non-tender, normal inspection, no pedal edema Neurologic/Psychiatric: no motor/sensory deficits, alert Laboratory Results Last 24 Hours Test 07/31/17 16:07 07/31/17 20:16 08/01/17 07:46 08/01/17 10:34 Bedside Glucose 103 mg/dl 87 mg/dl 78 mg/dl White Blood Count 11.94 K/uL Red Blood Count 3.15 M/uL Hemoglobin 9.8 g/dL Hematocrit 29.8 % Mean Corpuscular Volume 94.6 fL Mean Corpuscular Hemoglobin 31.1 pg Mean Corpuscular Hemoglobin Concent 32.9 g/dl Platelet Count 115 K/uL Mean Platelet Volume 8.9 fL RDW Standard Deviation 59.7 fL RDW Coefficient of Variation 18.0 % Nucleated RBC Absolute Count (auto) 0.03 K/uL Neutrophils % (Manual) 87.0 % Lymphocytes % (Manual) 7.0 % Monocytes % (Manual) 2.6 % Basophils % (Manual) 1.7 % Myelocytes % 1.7 % Nucleated Red Blood Cells % 0.3 % Neutrophils # (Manual) 10.39 K/uL Total Absolute Neutrophils 10.39 K/uL Lymphocytes # (Manual) 0.84 K/uL Total Absolute Lymphocytes 0.84 K/uL Monocytes # (Manual) 0.31 K/uL Basophils # (Manual) 0.20 K/uL Myelocytes # 0.20 K/uL Sodium Level 143 mmol/L Potassium Level 3.6 mmol/L Chloride Level 108 mmol/L Carbon Dioxide Level 28 mmol/L Anion Gap 7.0 mmol/L Blood Urea Nitrogen 4 mg/dl Creatinine 1.10 mg/dl Est Creatinine Clear Calc Drug Dose 49.0 ml/min Estimated GFR () 56.9 Estimated GFR (Non- 49.1 BUN/Creatinine Ratio 3.4 Random Glucose 95 mg/dl Calcium Level 8.3 mg/dl Total Bilirubin 0.5 mg/dl Aspartate Amino Transf (AST/SGOT) 40 U/L Alanine Aminotransferase (ALT/SGPT) 17 U/L Alkaline Phosphatase 147 U/L Total Protein 4.3 gm/dl Albumin 2.1 gm/dl Globulin 2.2 gm/dl Albumin/Globulin Ratio 1.0 Test 08/01/17 10:43 08/01/17 11:48 25-Hydroxy Vitamin D Total 21.6 ng/ml Bedside Glucose 86 mg/dl Assessment and Plan 77-year-old female with 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 Recently she had a fall and was admitted to the hospital. Then from the hospital she was discharged to rehabilitation. On July 24 she was discharged from rehabilitation to her house. She spent the night there but yesterday she went to the bathroom and was not able to stand up due to severe weakness. Significant weakness was manifested in her left lower extremity that gives up on her. Patient came to the hospital for further evaluation and management. Significant generalized weakness and deconditioning. PT/OT Continue supportive care Plan for rehabilitation discharge. Nutrition supplement. Severe back pain/ acute compression fracture in L1 Due to her current active cancer, MRI lumbar spine reviewed Orthopedic surgeon was consulted. surgical intervention is deferred until her general condition improves Dec fentanyl patch to 12.5 mcg q 72 hrs Limit dilaudid IV Encouraged pt and family to partake of PT Cont on OxyContin every 12 hours for pain in addition to PO dilaudid PRN consult palliative care Dr. Levy, appreciated Vit D level 21 Discussed with family and patient and they agree with the plan Pyuria present on admission Unsure if it's a full-blown UTI, does have full known staghorn calculus and stent on the right urethra, urine cultures negative Continue to observe of antibiotics B-cell lymphoma, continue chemotherapy as an outpatient, oncology consulted per family request Diabetes mellitus type 2, will place her on sliding scale DVT prophylaxis/SCD boot as platelets count only fluctuating from 75-95 Patient is currently full code
[2017-08-01] MEDS: ALLOPURINOL 100 MG TAB PO SCH (19:31)
[2017-08-01] MEDS: MECLIZINE HCL 25 MG TAB PO PRN (20:47)
[2017-08-02] VITALS (7 sets, daily range): BP systolic 102–166; BP diastolic 67–84; PULSE 88–104; TEMP 36.4–36.8; O2SAT 96–98; BMI 42.5
[2017-08-02] MEDS: HYDROmorphone INJ 1 MG/ML SYR IV PRN (05:16)
[2017-08-02] MEDS: ONDANSETRON INJ 2 MG/ML 2 ML VIAL IV PRN ×3 (07:32→19:12)
[2017-08-02] MEDS: OXYCODONE/ACETAMINOPHEN 10/325MG TAB PO PRN ×2 (07:35→16:06)
[2017-08-02] MEDS: INSULIN ASPART 100 UNITS/ML 3 ML PEN SC SCH ×4 (07:36→20:14)
[2017-08-02] MEDS: OXYBUTYNIN CHLORIDE 5 MG TABCR PO SCH (07:37)
[2017-08-02] MEDS: MECLIZINE HCL 25 MG TAB PO PRN ×2 (07:37→23:47)
[2017-08-02] MEDS: FUROSEMIDE 20 MG TAB PO SCH (07:38)
[2017-08-02] MEDS: DOCUSATE SODIUM 100 MG CAP PO SCH ×2 (07:38→20:20)
[2017-08-02] MEDS: LOSARTAN POTASSIUM 50 MG TAB PO SCH (07:38)
[2017-08-02] MEDS: PANTOprazole SOD 40 MG TAB PO SCH (07:39)
[2017-08-02] MEDS: CEROVITE ADV FORMULA TAB PO SCH (07:39)
[2017-08-02] MEDS: CHECK FENTANYL PATCH PLACEMENT SCH ×4 (07:39→23:36)
[2017-08-02] MEDS: LIDODERM (LIDOCAINE) PATCH 5% TD SCH (07:40)
[2017-08-02] MEDS: POTASSIUM CHLORIDE 20 MEQ TABCR PO SCH (07:40)
[2017-08-02] MEDS: POT PHOSPHATE MONOBASIC W/ SOD TAB PO SCH ×4 (07:40→20:19)
[2017-08-02] MEDS: DRONABINOL 2.5 MG CAP PO SCH ×2 (07:44→20:19)
[2017-08-02] MEDS: PROMETHAZINE HCL INJ 12.5 MG in SODIUM CHLORIDE 0.9% 50ML 50 ML IV PRN (08:02)
--- NOTE | 2017-08-02 10:27 | Palliative Care Progress Note ---
Palliative Care Progress Note Date of Service Aug 02, 2017. Subjective Pt evaluation today including: conversation w/ patient, conversation w/ family , physical exam, chart review, lab review, conversation w/ tax credit leasing consultant, review of inpatient medication list Pain: Pt moaning and crying out in pain when awake PO Intake: poor Review of Systems Constitutional: No fever, No chills Eyes: No discharge ENT: No hearing loss Respiratory: No cough Cardiac: + edema Abdomen: No pain, No diarrhea Musculoskeletal: + problem reported (back pain) Neurologic: + weakness Psychiatric: + anxiety Skin: No rash Objective Vital Signs Date Time Temp Pulse Resp B/P (MAP) Pulse Ox O2 Delivery O2 Flow Rate FiO2 08/02/17 07:35 Nasal Cannula 4.0 Humidified Oxygen 08/02/17 07:12 36.6 104 18 157/72 (100) 96 Nasal Cannula 4.0 08/02/17 04:40 36.5 95 20 142/84 (103) 97 Nasal Cannula 4.0 08/02/17 00:00 Nasal Cannula 4.0 08/02/17 00:00 36.4 103 16 102/67 (79) 97 Nasal Cannula 4.0 08/01/17 20:00 Nasal Cannula 4.0 08/01/17 19:45 36.6 101 20 137/79 (98) 98 Nasal Cannula 4.0 08/01/17 16:36 36.5 96 18 126/76 (93) 97 Nasal Cannula 4.0 08/01/17 16:00 Nasal Cannula 4.0 08/01/17 11:36 36.7 91 18 130/77 (94) 99 Nasal Cannula 4.0 Physical Exam General Appearance: + severe distress Eyes: EOMI ENT: hearing grossly normal Neck: supple Respiratory/Chest: no respiratory distress Cardiovascular: + tachycardia, + pertinent finding (2+ LE edema) Abdomen: non tender, soft Extremities: + pedal edema Neurologic/Psychiatric: + pertinent finding (anxious) Skin: no rash Laboratory Results Last 24 Hours Test 08/01/17 10:34 08/01/17 10:43 08/01/17 11:48 08/01/17 16:31 White Blood Count 11.94 K/uL Red Blood Count 3.15 M/uL Hemoglobin 9.8 g/dL Hematocrit 29.8 % Mean Corpuscular Volume 94.6 fL Mean Corpuscular Hemoglobin 31.1 pg Mean Corpuscular Hemoglobin Concent 32.9 g/dl Platelet Count 115 K/uL Mean Platelet Volume 8.9 fL RDW Standard Deviation 59.7 fL RDW Coefficient of Variation 18.0 % Nucleated RBC Absolute Count (auto) 0.03 K/uL Neutrophils % (Manual) 87.0 % Lymphocytes % (Manual) 7.0 % Monocytes % (Manual) 2.6 % Basophils % (Manual) 1.7 % Myelocytes % 1.7 % Nucleated Red Blood Cells % 0.3 % Neutrophils # (Manual) 10.39 K/uL Total Absolute Neutrophils 10.39 K/uL Lymphocytes # (Manual) 0.84 K/uL Total Absolute Lymphocytes 0.84 K/uL Monocytes # (Manual) 0.31 K/uL Basophils # (Manual) 0.20 K/uL Myelocytes # 0.20 K/uL Sodium Level 143 mmol/L Potassium Level 3.6 mmol/L Chloride Level 108 mmol/L Carbon Dioxide Level 28 mmol/L Anion Gap 7.0 mmol/L Blood Urea Nitrogen 4 mg/dl Creatinine 1.10 mg/dl Est Creatinine Clear Calc Drug Dose 49.0 ml/min Estimated GFR () 56.9 Estimated GFR (Non- 49.1 BUN/Creatinine Ratio 3.4 Random Glucose 95 mg/dl Calcium Level 8.3 mg/dl Total Bilirubin 0.5 mg/dl Aspartate Amino Transf (AST/SGOT) 40 U/L Alanine Aminotransferase (ALT/SGPT) 17 U/L Alkaline Phosphatase 147 U/L Total Protein 4.3 gm/dl Albumin 2.1 gm/dl Globulin 2.2 gm/dl Albumin/Globulin Ratio 1.0 25-Hydroxy Vitamin D Total 21.6 ng/ml Bedside Glucose 86 mg/dl 75 mg/dl Test 08/01/17 19:33 08/02/17 07:18 08/02/17 07:58 Bedside Glucose 71 mg/dl 67 mg/dl 90 mg/dl Assessment and Plan (1) Lymphoma Status: Chronic Assessment & Plan: Further chemo per Hem/Onc (2) Weakness Status: Acute Assessment & Plan: Pt was using walker at home but "legs gave out" - now with L1 fx Pain limiting her movement in bed, requires full assist to turn (3) Back pain Status: Acute Assessment & Plan: L1 fx - Pt required 180 mg/24 hours of oral morphine equivalent - adding together her lower patch dose, her IV Dilaudid, her PO Dilaudid, her OxyContin and her PO Percocet. This equals 120 mg of Oxycodone / 24 hours. She is currently on 40 mg of OxyContin scheduled /24 hours - would start by increasing OxyContin to 320 mg Q 8 hours and assess her BTP requirements daily and adjust OxyC as needed until effect or sedation. Total time reviewing meds, speaking with pt and sister and collaborating with attending physician 35 min with >50% of time spent at bedside with pt and sister Palliative Performance Scale: 30 % Continued [facility] stay due to: inadequate oral pain control, ambulation difficulties Discharge planning: rehab hospital (once pain is controlled)
[2017-08-02] MEDS: OXYCODONE HCL 20 MG TABCR (OXYCONTIN) PO SCH ×2 (10:28→19:11)
--- NOTE | 2017-08-02 13:16 | Progress Note ---
Subjective Date of Service: Aug 02, 2017. Subjective Pt evaluation today including: conversation w/ patient, physical exam, chart review, lab review, review of studies, review of inpatient medication list Sister at bedside Dr Levy in room as well Pt reported continued pain at this time Problem List Medical Problems: (1) Diarrhea Status: Acute (2) Head injury Status: Acute (3) Hypokalemia Status: Acute (4) Hypomagnesemia Status: Acute (5) Hypomagnesemia Status: Acute (6) Neutropenia Status: Acute (7) Pancytopenia Status: Acute (8) Pancytopenia Status: Acute (9) Pancytopenia Status: Acute (10) Sepsis Status: Acute (11) Somnolence Status: Acute (12) UTI (urinary tract infection) Status: Acute Review of Systems Constitutional: No fever, No chills, No sweats, No weight loss, No weakness Eyes: No worsening of vision, No eye pain, No redness, No discharge Respiratory: No cough, No sputum, No wheezing, No shortness of breath, No dyspnea on exertion Cardiac: No chest pain, No orthopnea, No PND, No edema Abdomen: No pain, No nausea, No vomiting, No diarrhea, No constipation Musculoskeletal: + joint pain, + muscle pain, No swelling, No calf pain Female : No dysuria, No urinary frequency, No hematuria, No incontinence Neurologic: No memory loss, No paralysis, No weakness, No numbness/tingling Psychiatric: No depression symptoms, No anhedonism, No anxiety, No insomnia Endo: No fatigue, No excessive thirst Skin: No rash, No itch Objective Vital Signs Date Time Temp Pulse Resp B/P (MAP) Pulse Ox O2 Delivery O2 Flow Rate FiO2 08/02/17 12:06 36.8 103 20 114/71 (85) 97 4.0 08/02/17 07:35 Nasal Cannula 4.0 Humidified Oxygen 08/02/17 07:12 36.6 104 18 157/72 (100) 96 Nasal Cannula 4.0 08/02/17 04:40 36.5 95 20 142/84 (103) 97 Nasal Cannula 4.0 08/02/17 00:00 Nasal Cannula 4.0 08/02/17 00:00 36.4 103 16 102/67 (79) 97 Nasal Cannula 4.0 08/01/17 20:00 Nasal Cannula 4.0 08/01/17 19:45 36.6 101 20 137/79 (98) 98 Nasal Cannula 4.0 08/01/17 16:36 36.5 96 18 126/76 (93) 97 Nasal Cannula 4.0 08/01/17 16:00 Nasal Cannula 4.0 Physical Exam General Appearance: WD/WN, + moderate distress, + obese Eyes: normal inspection, PERRL, EOMI, sclerae normal Neck: supple, no adenopathy, thyroid normal, no JVD Respiratory/Chest: lungs clear, normal breath sounds, no respiratory distress, no accessory muscle use Cardiovascular: no edema, no gallop, no JVD, no murmur Abdomen: normal bowel sounds, non tender, soft, no organomegaly Neurologic/Psychiatric: no motor/sensory deficits, oriented x 3, + depressed affect Laboratory Results Last 24 Hours Test 08/01/17 16:31 08/01/17 19:33 08/02/17 07:18 08/02/17 07:58 Bedside Glucose 75 mg/dl 71 mg/dl 67 mg/dl 90 mg/dl Test 08/02/17 11:35 Bedside Glucose 76 mg/dl Assessment and Plan 77-year-old female with 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 Recently she had a fall and was admitted to the hospital. Then from the hospital she was discharged to rehabilitation. On July 24 she was discharged from rehabilitation to her house. She spent the night there but yesterday she went to the bathroom and was not able to stand up due to severe weakness. Significant weakness was manifested in her left lower extremity that gives up on her. Patient came to the hospital for further evaluation and management. Significant generalized weakness and deconditioning. PT/OT Continue supportive care Plan for rehabilitation discharge. Nutrition supplement. Severe back pain/ acute compression fracture in L1 Due to her current active cancer, MRI lumbar spine reviewed Orthopedic surgeon was consulted. surgical intervention is deferred until her general condition improves Cont fentanyl patch to 12.5 mcg q 72 hrs Increased oxyContin to 20 Q 8 hours for better basal pain control per palliative care recs Limit dilaudid IV and PO Encouraged pt and family to partake of PT consult palliative care Dr. Levy, appreciated Vit D level 21 Discussed with family and patient and they agree with the plan Pyuria present on admission Unsure if it's a full-blown UTI, does have full known staghorn calculus and stent on the right urethra, urine cultures negative Continue to observe of antibiotics B-cell lymphoma, continue chemotherapy as an outpatient, oncology consulted per family request Diabetes mellitus type 2, will place her on sliding scale DVT prophylaxis/SCD boot as platelets count only fluctuating from 75-95 Patient is currently full code Continued [facility] stay due to: inadequate oral pain control, ambulation difficulties Discharge planning: rehab hospital (once pain is controlled)
[2017-08-02] MEDS: ALLOPURINOL 100 MG TAB PO SCH (20:20)
[2017-08-02] MEDS: ONDANSETRON 8MG OD TAB SL PRN (23:47)
[2017-08-03] MEDS: HYDROmorphone INJ 1 MG/ML SYR IV PRN ×4 (00:09→23:52)
[2017-08-03] MEDS: OXYCODONE HCL 20 MG TABCR (OXYCONTIN) PO SCH ×2 (03:02→20:37)
[2017-08-03] MEDS: ONDANSETRON INJ 2 MG/ML 2 ML VIAL IV PRN ×2 (03:02→10:43)
[2017-08-03 03:55] VITALS: BP 159/79; PULSE 102; TEMP 36.5; O2SAT 98
[2017-08-03] MEDS: PROMETHAZINE HCL INJ 12.5 MG in SODIUM CHLORIDE 0.9% 50ML 50 ML IV PRN ×3 (04:28→20:37)
[2017-08-03 07:17] VITALS: BP 150/79; PULSE 101; TEMP 36.7; O2SAT 97
[2017-08-03] MEDS: DEXTROSE 50% 50 ML SYR IV PRN ×2 (08:01→13:01)
[2017-08-03] MEDS: DOCUSATE SODIUM 100 MG CAP PO SCH ×3 (08:03→20:45)
[2017-08-03] MEDS: POTASSIUM CHLORIDE 20 MEQ TABCR PO SCH ×2 (08:03→11:00)
[2017-08-03] MEDS: LIDODERM (LIDOCAINE) PATCH 5% TD SCH (08:04)
[2017-08-03] MEDS: LOSARTAN POTASSIUM 50 MG TAB PO SCH ×2 (08:04→11:00)
[2017-08-03] MEDS: MECLIZINE HCL 25 MG TAB PO PRN (08:04)
[2017-08-03] MEDS: OXYBUTYNIN CHLORIDE 5 MG TABCR PO SCH ×2 (08:04→11:00)
[2017-08-03] MEDS: CEROVITE ADV FORMULA TAB PO SCH ×2 (08:04→11:00)
[2017-08-03] MEDS: PANTOprazole SOD 40 MG TAB PO SCH ×2 (08:04→11:00)
[2017-08-03] MEDS: POT PHOSPHATE MONOBASIC W/ SOD TAB PO SCH ×5 (08:05→20:45)
[2017-08-03] MEDS: FUROSEMIDE 20 MG TAB PO SCH ×2 (08:05→11:00)
[2017-08-03] MEDS: CHECK FENTANYL PATCH PLACEMENT SCH ×3 (08:06→23:57)
[2017-08-03] MEDS: HYDROmorphone HCL 2 MG TAB PO PRN (08:15)
[2017-08-03 08:30] VITALS: O2SAT 97
[2017-08-03] MEDS: INSULIN ASPART 100 UNITS/ML 3 ML PEN SC SCH ×4 (08:30→20:48)
--- NOTE | 2017-08-03 09:17 | Palliative Care Progress Note ---
Palliative Care Progress Note Date of Service Aug 03, 2017. Subjective Pt evaluation today including: conversation w/ patient, physical exam, chart review, lab review Pain: Pt moaning , crying - just received PO Dilaudid PO Intake: Poor Voiding: no voiding problems Nursing reports pt did sleep some overnight - moans when awake - c/o back pain . Pt calmed down and dozed off after back massage. Pt with significant anxiety and poor coping skills Pt required Dilaudid 1 mg IV X 3 , and Percocet 10/325 X 2 in the past 24 hours in addition to her Fentanyl patch and OxyContin at 20 mg Q 8 - in oxycodone equivalence - she required 60 mg PO oxy in addition to her patch and OxyContin in 24 hours. Pt with low glucose - not on her Januvia - due to poor PO intake. Review of Systems Constitutional: + weakness, No fever Eyes: No discharge ENT: No hearing loss Respiratory: No cough Cardiac: No edema Abdomen: + nausea Musculoskeletal: + problem reported (severe back pain) Neurologic: + weakness Psychiatric: + depression symptoms, + anxiety Heme: No abnormal bleeding/bruising Skin: No rash Objective Vital Signs Date Time Temp Pulse Resp B/P (MAP) Pulse Ox O2 Delivery O2 Flow Rate FiO2 08/03/17 07:17 36.7 101 18 150/79 (102) 97 Nasal Cannula 4.0 08/03/17 03:55 36.5 102 20 159/79 (105) 98 2.0 08/03/17 00:00 Nasal Cannula 4.0 08/02/17 23:51 36.6 100 20 166/82 (110) 96 Room Air 08/02/17 19:26 36.5 88 22 153/74 (100) 97 Nasal Cannula 4.0 Humidified Oxygen 08/02/17 16:25 Nasal Cannula 4.0 Humidified Oxygen 08/02/17 15:54 36.7 92 22 139/82 (101) 98 Nasal Cannula 4.0 Humidified Oxygen 08/02/17 12:06 36.8 103 20 114/71 (85) 97 4.0 Physical Exam General Appearance: + severe distress (some pain, some anxiety , also emotional pain) ENT: hearing grossly normal Neck: supple Respiratory/Chest: + decreased breath sounds Cardiovascular: + tachycardia Abdomen: non tender, soft Extremities: no pedal edema Neurologic/Psychiatric: + pertinent finding (physical and emotional distress) Skin: no rash Laboratory Results Last 24 Hours Test 08/02/17 11:35 08/02/17 16:29 08/02/17 20:03 08/03/17 07:30 Bedside Glucose 76 mg/dl 76 mg/dl 66 mg/dl 58 mg/dl Test 08/03/17 07:52 08/03/17 08:29 Bedside Glucose 57 mg/dl 100 mg/dl Assessment and Plan (1) Lymphoma Status: Chronic Assessment & Plan: Pt received lower dose chemo due to not tolerating full dose - further chemo per Hem/Onc (2) Weakness Status: Acute Assessment & Plan: Progressing prior to admission - now pain limiting ability to participate in PT/OT (3) Back pain Status: Acute Assessment & Plan: 1. Would consider increasing OxyContin to 40 mg BID - an increase of 20 mg in 24 hours 2. Cont PO Dilaudid prn - 1.5 mg of IV is equivalent to 7.5 mg PO - consider increase to 4 mg PO prn 3. Massage did help back pain - in a Palliative setting - can place Lidoderm patch and leave in place for 3-5 days. 4. Anxiety contributing to pain perception - consider using Ativan 0.5 mg TID if not too sedating. Total time 35 min with >50% fo time spent at bedside providing reassurance to pt and reviewing POC with pt and nursing Plan to collaborate with attending physician. Total time reviewing meds, speaking with pt and sister and collaborating with attending physician 35 min with >50% of time spent at bedside with pt and sister Palliative Performance Scale: 30 % Continued [facility] stay due to: inadequate po fluid intake, inadequate oral pain control, ambulation difficulties Discharge planning: rehab hospital (once pain is controlled)
[2017-08-03 10:50] VITALS: Ht 154.9 cm; Wt 102.1 kg
[2017-08-03] MEDS: DRONABINOL 2.5 MG CAP PO SCH ×2 (10:55→20:37)
[2017-08-03 11:18] VITALS: BP 147/82; PULSE 89; TEMP 36.5; O2SAT 97
[2017-08-03] MEDS: D5W AND NSS 1,000 ML IV SCH ×2 (11:27→23:58)
[2017-08-03] MEDS: OXYCODONE/ACETAMINOPHEN 10/325MG TAB PO PRN (12:00)
[2017-08-03] MEDS ORDERED: LORAZEPAM 0.5 MG TAB PO PRN (12:15)
--- NOTE | 2017-08-03 13:17 | Progress Note ---
Subjective Date of Service: Aug 03, 2017. Subjective Pt evaluation today including: conversation w/ patient, physical exam, chart review, lab review, review of studies, review of inpatient medication list Pt noted to be moaning and in distress this AM Noted anxiety per nursing stafff as well No family at bedside Problem List Medical Problems: (1) Diarrhea Status: Acute (2) Head injury Status: Acute (3) Hypokalemia Status: Acute (4) Hypomagnesemia Status: Acute (5) Hypomagnesemia Status: Acute (6) Neutropenia Status: Acute (7) Pancytopenia Status: Acute (8) Pancytopenia Status: Acute (9) Pancytopenia Status: Acute (10) Sepsis Status: Acute (11) Somnolence Status: Acute (12) UTI (urinary tract infection) Status: Acute Review of Systems Unable to obtain as sedated and poor historian Objective Vital Signs Date Time Temp Pulse Resp B/P (MAP) Pulse Ox O2 Delivery O2 Flow Rate FiO2 08/03/17 11:18 36.5 89 20 147/82 (103) 97 Nasal Cannula 4.0 08/03/17 08:30 97 Nasal Cannula 4.0 08/03/17 07:17 36.7 101 18 150/79 (102) 97 Nasal Cannula 4.0 08/03/17 03:55 36.5 102 20 159/79 (105) 98 2.0 08/03/17 00:00 Nasal Cannula 4.0 08/02/17 23:51 36.6 100 20 166/82 (110) 96 Room Air 08/02/17 19:26 36.5 88 22 153/74 (100) 97 Nasal Cannula 4.0 Humidified Oxygen 08/02/17 16:25 Nasal Cannula 4.0 Humidified Oxygen 08/02/17 15:54 36.7 92 22 139/82 (101) 98 Nasal Cannula 4.0 Humidified Oxygen Physical Exam General Appearance: WD/WN, + mild distress Eyes: normal inspection, PERRL, EOMI, sclerae normal Neck: supple, no adenopathy, thyroid normal, no JVD Respiratory/Chest: chest non-tender, no respiratory distress, no accessory muscle use, + decreased breath sounds Cardiovascular: no gallop, no JVD, no murmur, + tachycardia Abdomen: normal bowel sounds, non tender, soft, no organomegaly Extremities: non-tender, normal inspection, no pedal edema Neurologic/Psychiatric: no motor/sensory deficits, alert, normal mood/affect, + disoriented Laboratory Results Last 24 Hours Test 08/02/17 16:29 08/02/17 20:03 08/03/17 07:30 08/03/17 07:52 Bedside Glucose 76 mg/dl 66 mg/dl 58 mg/dl 57 mg/dl Test 08/03/17 08:29 08/03/17 10:55 08/03/17 12:47 Bedside Glucose 100 mg/dl 70 mg/dl 75 mg/dl Assessment and Plan 77-year-old female with 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 Recently she had a fall and was admitted to the hospital. Then from the hospital she was discharged to rehabilitation. On July 24 she was discharged from rehabilitation to her house. She spent the night there but yesterday she went to the bathroom and was not able to stand up due to severe weakness. Significant weakness was manifested in her left lower extremity that gives up on her. Patient came to the hospital for further evaluation and management. Significant generalized weakness and deconditioning. PT/OT consulted, difficult to obtain as pt is sedated during visits Continue supportive care Plan for rehabilitation discharge. Nutrition supplement. Severe back pain/ acute compression fracture in L1 Due to her current active cancer, MRI lumbar spine reviewed Orthopedic surgeon was consulted. surgical intervention is deferred until her general condition improves Cont fentanyl patch to 12.5 mcg q 72 hrs Increased oxyContin to 40 Q 12 hours for better basal pain control per palliative care recs Limit dilaudid IV and PO Encouraged pt and family to partake of PT consult palliative care Dr. Levy, appreciated Vit D level 21 Discussed with family and patient and they agree with the plan Pyuria present on admission Unsure if it's a full-blown UTI, does have full known staghorn calculus and stent on the right urethra, urine cultures negative No antibx indicated B-cell lymphoma, continue chemotherapy as an outpatient, oncology consulted per family request Diabetes mellitus type 2, will place her on sliding scale DVT prophylaxis/SCD boot as platelets count only fluctuating from 75-95 Patient is currently full code Continued [facility] stay due to: inadequate po fluid intake, inadequate oral pain control, ambulation difficulties Discharge planning: rehab hospital (once pain is controlled)
[2017-08-03 15:03] VITALS: BP 150/79; PULSE 88; TEMP 36.6; O2SAT 98
[2017-08-03 16:00] VITALS: O2SAT 98
[2017-08-03] MEDS: ALLOPURINOL 100 MG TAB PO SCH (20:50)
[2017-08-03 22:22] LABS: URINE APPEARANCE TURBID (CLEAR); URINE BILIRUBIN NEG (NEG); URINE COLOR DK YELLOW; URINE EPITHELIAL CELL AUTO >30 /lpf (0-5); URINE NITRITE POS (NEG); URINE PH 5.5 (4.5-7.5); URINE SPECIFIC GRAVITY 1.017 (1.000-1.030); UROBILINOGEN NEG (NEG); ZZUR CULT IF INDIC CLEAN CATCH YES
[2017-08-03 22:23] LABS: MANUAL MICROSCOPIC REQUIRED? NO; REVIEW REQ? YES
[2017-08-04] VITALS (7 sets, daily range): BP systolic 136–174; BP diastolic 73–104; PULSE 84–120; TEMP 36.3–36.5; O2SAT 92–97
[2017-08-04] MEDS: OXYCODONE/ACETAMINOPHEN 10/325MG TAB PO PRN ×2 (03:40→13:22)
[2017-08-04] MEDS: ONDANSETRON 8MG OD TAB SL PRN (03:41)
[2017-08-04] MEDS ORDERED: LORAZEPAM 2 MG/ML 1 ML VIAL IV PRN (05:15)
[2017-08-04] MEDS ORDERED: NURSING VERBAL MED ORDER ONE (05:15)
[2017-08-04] MEDS: LORAZEPAM INJ 0.5 MG in SYRINGE 0.75 ML IV PRN ×2 (05:37→11:33)
[2017-08-04] MEDS: DOCUSATE SODIUM 100 MG CAP PO SCH (07:51)
[2017-08-04] MEDS: LOSARTAN POTASSIUM 50 MG TAB PO SCH (07:52)
[2017-08-04] MEDS: OXYBUTYNIN CHLORIDE 5 MG TABCR PO SCH (07:52)
[2017-08-04] MEDS: CEROVITE ADV FORMULA TAB PO SCH (07:52)
[2017-08-04] MEDS: PANTOprazole SOD 40 MG TAB PO SCH (07:52)
[2017-08-04] MEDS: FUROSEMIDE 20 MG TAB PO SCH (07:53)
[2017-08-04] MEDS: LIDODERM (LIDOCAINE) PATCH 5% TD SCH (07:53)
[2017-08-04] MEDS: POTASSIUM CHLORIDE 20 MEQ TABCR PO SCH (07:54)
[2017-08-04] MEDS: POT PHOSPHATE MONOBASIC W/ SOD TAB PO SCH ×2 (07:55→12:38)
[2017-08-04] MEDS: PROMETHAZINE HCL INJ 12.5 MG in SODIUM CHLORIDE 0.9% 50ML 50 ML IV PRN ×2 (08:00→23:00)
[2017-08-04 08:17] LABS: MEAN CORPUSCULAR HGB CONC 31.3 g/dl (32-36); MEAN PLATELET VOLUME 8.5 fL (7.4-10.4); PLATELET COUNT 115 K/uL (130-400)
[2017-08-04] MEDS: OXYCODONE HCL 20 MG TABCR (OXYCONTIN) PO SCH (08:21)
[2017-08-04] MEDS: CHECK FENTANYL PATCH PLACEMENT SCH (08:24)
[2017-08-04] MEDS: INSULIN ASPART 100 UNITS/ML 3 ML PEN SC SCH ×4 (08:29→21:00)
[2017-08-04 08:42] LABS: BUN/CREATININE RATIO 4.1 (10-20); CALCIUM 8.5 mg/dl (8.5-10.1); CREATININE 1.2 mg/dl (0.60-1.20)
[2017-08-04 08:49] LABS: HEMATOCRIT 33.9 % (37-47); MEAN CELL VOLUME 93.9 fL (80-100); MEAN CORPUSCULAR HEMOGLOBIN 29.4 pg (25-34); RED BLOOD COUNT 3.61 M/uL (4.2-5.4); WHITE BLOOD COUNT 25.99 K/uL (4.8-10.8)
[2017-08-04] MEDS ORDERED: FENTANYL 12 MCG/HR TDSY TD SCH (09:00)
[2017-08-04] MEDS: HYDROmorphone INJ 1 MG/ML SYR IV PRN (09:09)
[2017-08-04] MEDS: FENTANYL PATCH REMOVE & WASTE SCH (09:14)
[2017-08-04] MEDS: DRONABINOL 2.5 MG CAP PO SCH (09:14)
[2017-08-04 09:34] LABS: ANISOCYTOSIS PRESENT; BASO ABS # 0.44 K/uL (0-0.2); BASOPHIL % 1.7 %; COMPLETE YES; EOSINOPHIL % 1.7 %; LYMPH ABS # 2.47 K/uL (1.2-3.4); LYMPHOCYTE % 9.5 %; META ABS # 1.56 K/uL (0-0); MYELOCYTE % 5.2 %; NEUTROPHILS % 69.9 %; POLYCHROMASIA 1+; TEAR DROP CELLS 1+
--- NOTE | 2017-08-04 09:50 | Palliative Care Progress Note ---
Palliative Care Progress Note Date of Service Aug 04, 2017. Subjective Pt evaluation today including: conversation w/ patient, conversation w/ family , physical exam, chart review, lab review, conversation w/ systems consultant Pain: uncontrolled - pt crying out in pain PO Intake: poor Voiding: no voiding problems Pt crying out in pain whenever awake. She is only comfortable when sedated. Spoke with son by phone who stated pt has a very low threshold for dealing with pain. hold for Review of Systems Constitutional: No fever, No chills Eyes: No redness, No discharge ENT: No hearing loss Respiratory: No cough Cardiac: No edema Abdomen: + nausea, + constipation, No pain Musculoskeletal: + problem reported (back pain) Female : + problem reported (chronic pyuria due to staghorn calculus) Neurologic: + weakness Psychiatric: + anxiety Heme: No abnormal bleeding/bruising Skin: No rash Objective Vital Signs Date Time Temp Pulse Resp B/P (MAP) Pulse Ox O2 Delivery O2 Flow Rate FiO2 08/04/17 07:16 36.5 104 20 174/104 (127) 97 Nasal Cannula 4.0 08/04/17 04:29 36.5 120 20 167/78 (107) 92 Room Air 08/04/17 00:05 Nasal Cannula 4.0 08/03/17 16:00 98 Nasal Cannula 4.0 08/03/17 15:03 36.6 88 18 150/79 (102) 98 Nasal Cannula 4.0 08/03/17 11:18 36.5 89 20 147/82 (103) 97 Nasal Cannula 4.0 Physical Exam General Appearance: + severe distress (due to back pain and exacerbated by anxiety) Eyes: EOMI ENT: hearing grossly normal Neck: supple Respiratory/Chest: + decreased breath sounds Cardiovascular: no edema, + tachycardia Abdomen: non tender, soft Extremities: no pedal edema Neurologic/Psychiatric: + depressed affect Skin: warm/dry Laboratory Results Last 24 Hours Test 08/03/17 10:55 08/03/17 12:47 08/03/17 13:28 08/03/17 16:33 Bedside Glucose 70 mg/dl 75 mg/dl 105 mg/dl 84 mg/dl Test 08/03/17 20:36 08/03/17 21:15 08/04/17 07:33 08/04/17 08:04 Bedside Glucose 91 mg/dl 109 mg/dl Urine Color DK YELLOW Urine Appearance TURBID Urine pH 5.5 Urine Specific [place] 1.017 Urine Protein 2+ Urine Glucose (UA) NEG Urine Ketones NEG Urine Occult Blood 2+ Urine Nitrite POS Urine Bilirubin NEG Urine Urobilinogen NEG Urine Leukocyte Esterase LARGE Urine WBC (Auto) >30 /hpf Urine RBC (Auto) 0-4 /hpf Urine Hyaline Casts (Auto) 1-5 /lpf Urine Epithelial Cells (Auto) >30 /lpf Urine Bacteria (Auto) 4+ Urine Pathogenic Casts /lpf Urine Yeast (Auto) White Blood Count 25.99 K/uL Red Blood Count 3.61 M/uL Hemoglobin 10.6 g/dL Hematocrit 33.9 % Mean Corpuscular Volume 93.9 fL Mean Corpuscular Hemoglobin 29.4 pg Mean Corpuscular Hemoglobin Concent 31.3 g/dl Platelet Count 115 K/uL Mean Platelet Volume 8.5 fL RDW Standard Deviation 62.6 fL RDW Coefficient of Variation 18.8 % Nucleated RBC Absolute Count (auto) 0.09 K/uL Neutrophils % (Manual) 69.9 % Lymphocytes % (Manual) 9.5 % Monocytes % (Manual) 6.0 % Eosinophils % (Manual) 1.7 % Basophils % (Manual) 1.7 % Metamyelocytes % 6.0 % Myelocytes % 5.2 % Nucleated Red Blood Cells % 0.3 % Neutrophils # (Manual) 18.17 K/uL Total Absolute Neutrophils 18.17 K/uL Lymphocytes # (Manual) 2.47 K/uL Total Absolute Lymphocytes 2.47 K/uL Monocytes # (Manual) 1.56 K/uL Eosinophils # (Manual) 0.44 K/uL Basophils # (Manual) 0.44 K/uL Metamyelocytes # 1.56 K/uL Myelocytes # 1.35 K/uL Polychromasia 1+ Anisocytosis PRESENT Tear Drop Cells 1+ Sodium Level 144 mmol/L Potassium Level 3.0 mmol/L Chloride Level 105 mmol/L Carbon Dioxide Level 30 mmol/L Anion Gap 9.0 mmol/L Blood Urea Nitrogen 5 mg/dl Creatinine 1.20 mg/dl Est Creatinine Clear Calc Drug Dose 44.4 ml/min Estimated GFR () 51.2 Estimated GFR (Non- 44.2 BUN/Creatinine Ratio 4.1 Random Glucose 115 mg/dl Calcium Level 8.5 mg/dl Albumin 2.4 gm/dl Assessment and Plan (1) Lymphoma Status: Chronic Assessment & Plan: Will need to check with Hem/Onc to determine response to chemo and if any further treatment is planned (2) Weakness Status: Acute Assessment & Plan: Due to debility and back pain (3) Back pain Status: Acute Assessment & Plan: Not controlled - discussed with pt, sister and attending physician - will d/c current PO pain meds - start methadone 2.5 mg Q 8 hours and would suggest a DIlaudid drip at 0.2 mg/hr with a bolus of 0.5 mg Q 2 hours prn Will titrate methadone to cover IV pain meds over the next several days. . Pt has not had a BM since 07/31 . Creat is also increased - likely due to Lasix and poor PO intake - pt with h/o 3+ LE edema - now none on exam. Repeat urine culture pnd. Total time reviewing meds, speaking with pt, sister, son by phone and collaborating with attending physician 40 min with >50% of time spent at bedside with pt and sister Palliative Performance Scale: 30 % Continued [facility] stay due to: inadequate po fluid intake, inadequate oral pain control, ambulation difficulties, multiple IV medications needed Discharge planning: rehab hospital (once pain is controlled)
[2017-08-04] MEDS: POTASSIUM CHLR 10 MEQ / WTR 10 MEQ in PREMIXED WATER 100 ML IV SCH ×4 (11:33→18:00)
--- NOTE | 2017-08-04 12:46 | Progress Note ---
Subjective Date of Service: Aug 04, 2017. Subjective Pt evaluation today including: conversation w/ patient, conversation w/ family , physical exam, chart review, lab review, review of studies, review of inpatient medication list Pt still moaning in pain Bed ridden Not able to tolerate any therapy Sister at bedside Problem List Medical Problems: (1) Diarrhea Status: Acute (2) Head injury Status: Acute (3) Hypokalemia Status: Acute (4) Hypomagnesemia Status: Acute (5) Hypomagnesemia Status: Acute (6) Neutropenia Status: Acute (7) Pancytopenia Status: Acute (8) Pancytopenia Status: Acute (9) Pancytopenia Status: Acute (10) Sepsis Status: Acute (11) Somnolence Status: Acute (12) UTI (urinary tract infection) Status: Acute Review of Systems too sedated to obtain Objective Vital Signs Date Time Temp Pulse Resp B/P (MAP) Pulse Ox O2 Delivery O2 Flow Rate FiO2 08/04/17 08:30 97 Nasal Cannula 4.0 08/04/17 07:16 36.5 104 20 174/104 (127) 97 Nasal Cannula 4.0 08/04/17 04:29 36.5 120 20 167/78 (107) 92 Room Air 08/04/17 00:05 Nasal Cannula 4.0 08/03/17 16:00 98 Nasal Cannula 4.0 08/03/17 15:03 36.6 88 18 150/79 (102) 98 Nasal Cannula 4.0 Physical Exam General Appearance: WD/WN, + mild distress, + obese Eyes: normal inspection, PERRL, EOMI, sclerae normal Neck: supple, no adenopathy, thyroid normal, no JVD Respiratory/Chest: chest non-tender, lungs clear, no respiratory distress, + decreased breath sounds Cardiovascular: no gallop, no JVD, no murmur, + tachycardia Abdomen: normal bowel sounds, non tender, soft, no organomegaly Extremities: normal range of motion, non-tender, normal inspection, + pedal edema Neurologic/Psychiatric: no motor/sensory deficits, alert, normal mood/affect, + disoriented Laboratory Results Last 24 Hours Test 08/03/17 12:47 08/03/17 13:28 08/03/17 16:33 08/03/17 20:36 Bedside Glucose 75 mg/dl 105 mg/dl 84 mg/dl 91 mg/dl Test 08/03/17 21:15 08/04/17 07:33 08/04/17 08:04 08/04/17 11:36 Urine Color DK YELLOW Urine Appearance TURBID Urine pH 5.5 Urine Specific [place] 1.017 Urine Protein 2+ Urine Glucose (UA) NEG Urine Ketones NEG Urine Occult Blood 2+ Urine Nitrite POS Urine Bilirubin NEG Urine Urobilinogen NEG Urine Leukocyte Esterase LARGE Urine WBC (Auto) >30 /hpf Urine RBC (Auto) 0-4 /hpf Urine Hyaline Casts (Auto) 1-5 /lpf Urine Epithelial Cells (Auto) >30 /lpf Urine Bacteria (Auto) 4+ Urine Pathogenic Casts /lpf Urine Yeast (Auto) Bedside Glucose 109 mg/dl 121 mg/dl White Blood Count 25.99 K/uL Red Blood Count 3.61 M/uL Hemoglobin 10.6 g/dL Hematocrit 33.9 % Mean Corpuscular Volume 93.9 fL Mean Corpuscular Hemoglobin 29.4 pg Mean Corpuscular Hemoglobin Concent 31.3 g/dl Platelet Count 115 K/uL Mean Platelet Volume 8.5 fL RDW Standard Deviation 62.6 fL RDW Coefficient of Variation 18.8 % Nucleated RBC Absolute Count (auto) 0.09 K/uL Neutrophils % (Manual) 69.9 % Lymphocytes % (Manual) 9.5 % Monocytes % (Manual) 6.0 % Eosinophils % (Manual) 1.7 % Basophils % (Manual) 1.7 % Metamyelocytes % 6.0 % Myelocytes % 5.2 % Nucleated Red Blood Cells % 0.3 % Neutrophils # (Manual) 18.17 K/uL Total Absolute Neutrophils 18.17 K/uL Lymphocytes # (Manual) 2.47 K/uL Total Absolute Lymphocytes 2.47 K/uL Monocytes # (Manual) 1.56 K/uL Eosinophils # (Manual) 0.44 K/uL Basophils # (Manual) 0.44 K/uL Metamyelocytes # 1.56 K/uL Myelocytes # 1.35 K/uL Polychromasia 1+ Anisocytosis PRESENT Tear Drop Cells 1+ Sodium Level 144 mmol/L Potassium Level 3.0 mmol/L Chloride Level 105 mmol/L Carbon Dioxide Level 30 mmol/L Anion Gap 9.0 mmol/L Blood Urea Nitrogen 5 mg/dl Creatinine 1.20 mg/dl Est Creatinine Clear Calc Drug Dose 44.4 ml/min Estimated GFR () 51.2 Estimated GFR (Non- 44.2 BUN/Creatinine Ratio 4.1 Random Glucose 115 mg/dl Calcium Level 8.5 mg/dl Albumin 2.4 gm/dl Assessment and Plan 77-year-old female with 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 Recently she had a fall and was admitted to the hospital. Then from the hospital she was discharged to rehabilitation. On July 24 she was discharged from rehabilitation to her house. She spent the night there but yesterday she went to the bathroom and was not able to stand up due to severe weakness. Significant weakness was manifested in her left lower extremity that gives up on her. Patient came to the hospital for further evaluation and management. Significant generalized weakness and deconditioning. PT/OT consulted, difficult to obtain as pt is sedated during visits Continue supportive care Plan for rehabilitation discharge. Nutrition supplement. Severe back pain/ acute compression fracture in L1 Due to her current active cancer, MRI lumbar spine reviewed Orthopedic surgeon was consulted. surgical intervention is deferred until her general condition improves Discontinue fentanyl patch to 12.5 mcg q 72 hrs and start methadone 2.5 mg q 8 hrs and dilaudid drip Limit dilaudid IV and PO Encouraged pt and family to partake of PT consult palliative care Dr. Levy, appreciated Vit D level 21 Discussed with family and patient and they agree with the plan Pyuria present on admission Repeat urine cx pos for gram neg bacilli, WBC elev, started on IV doxy B-cell lymphoma, continue chemotherapy as an outpatient, oncology consulted per family request Diabetes mellitus type 2, will place her on sliding scale DVT prophylaxis/SCD boot as platelets count only fluctuating from 75-95 Patient is currently full code Continued [facility] stay due to: inadequate po fluid intake, inadequate oral pain control, ambulation difficulties, multiple IV medications needed Discharge planning: rehab hospital (once pain is controlled)
[2017-08-04] MEDS: D5W AND NSS 1,000 ML IV SCH (13:59)
[2017-08-04] MEDS ORDERED: FENTANYL PATCH REMOVE & WASTE ONE (14:00)
[2017-08-04] MEDS: HYDROmorphone/NSS 100MG/100ML 100 ML IV PRN (14:39)
--- NOTE | 2017-08-04 14:41 | DIAGNOSTIC IMAGING REPORT ---
KUB CLINICAL HISTORY: Bilious emesis. COMPARISON STUDY: CT of the abdomen and pelvis July 14, 2017. FINDINGS: An IVC filter is in place. A left ureteral stent is in place. A 2.2 cm left ureteropelvic junction calculus is unchanged. A 2.3 cm left renal calculus is unchanged. The bowel gas pattern is normal. IMPRESSION: 1. No evidence of bowel obstruction. 2. Left ureteral stent in place. No change in the 2.2 cm left UPJ calculus and the 2.3 cm left renal calculus. Electronically signed by: Akbar Wills M.D. 08/04/2017 2:40 PM Dictated Date/Time: 08/04/2017 2:36 PM
[2017-08-04] MEDS: METHADONE HCL 5 MG TAB PO SCH ×2 (14:58→22:00)
[2017-08-04] MEDS: DOXYCYCLINE IV 100 MG in DEXTROSE 5% 100ML 100 ML IV SCH (15:06)
[2017-08-04] MEDS: HYDROmorphone INJ 0.5 MG/0.5 ML SYR IV PRN (18:00)
[2017-08-04] MEDS: ALLOPURINOL 100 MG TAB PO SCH (21:00)
[2017-08-04] MEDS: ONDANSETRON INJ 2 MG/ML 2 ML VIAL IV PRN (22:38)
[2017-08-05] MEDS: HYDROmorphone INJ 0.5 MG/0.5 ML SYR IV PRN ×8 (00:05→23:02)
[2017-08-05 00:15] VITALS: BP 140/78; PULSE 107; TEMP 36.5; O2SAT 95
[2017-08-05] MEDS: D5W AND NSS 1,000 ML IV SCH ×2 (02:38→16:07)
[2017-08-05] MEDS: DOXYCYCLINE IV 100 MG in DEXTROSE 5% 100ML 100 ML IV SCH (02:39)
[2017-08-05] MEDS: LORAZEPAM INJ 0.5 MG in SYRINGE 0.75 ML IV PRN (04:37)
[2017-08-05] MEDS: PROMETHAZINE HCL INJ 12.5 MG in SODIUM CHLORIDE 0.9% 50ML 50 ML IV PRN ×2 (04:59→23:06)
[2017-08-05] MEDS: METHADONE HCL 5 MG TAB PO SCH (06:00)
[2017-08-05 06:15] LABS: HEMATOCRIT 31.1 % (37-47); MEAN CELL VOLUME 93.4 fL (80-100); MEAN CORPUSCULAR HEMOGLOBIN 30.3 pg (25-34); MEAN CORPUSCULAR HGB CONC 32.5 g/dl (32-36); MEAN PLATELET VOLUME 9.4 fL (7.4-10.4); PLATELET COUNT 109 K/uL (130-400); RED BLOOD COUNT 3.33 M/uL (4.2-5.4); WHITE BLOOD COUNT 29.61 K/uL (4.8-10.8)
[2017-08-05 06:50] LABS: BUN/CREATININE RATIO 4.1 (10-20); CALCIUM 8.1 mg/dl (8.5-10.1); CREATININE 1.1 mg/dl (0.60-1.20); POTASSIUM 2.9 mmol/L (3.5-5.1)
[2017-08-05 07:24] VITALS: BP 176/95; PULSE 113; TEMP 36.6; O2SAT 94
[2017-08-05] MEDS ORDERED: FUROSEMIDE INJ 20 MG in SYRINGE 0 ML IV SCH (08:00)
[2017-08-05 08:22] LABS: ANISOCYTOSIS PRESENT; BASO ABS # 0.77 K/uL (0-0.2); BASOPHIL % 2.6 %; COMPLETE YES; ECHINOCYTES 1+; EOSINOPHIL % 1.7 %; LYMPH ABS # 3.05 K/uL (1.2-3.4); LYMPHOCYTE % 10.3 %; META ABS # 1.01 K/uL (0-0); METAMYELOCYTE % 3.4 %; MYELOCYTE % 4.3 %; NEUTROPHILS % 71.7 %
--- NOTE | 2017-08-05 09:06 | Palliative Care Progress Note ---
Palliative Care Progress Note Date of Service Aug 05, 2017. Subjective Pt evaluation today including: conversation w/ family, physical exam, chart review, lab review Pain: improved on Dilaudid drip, pt asleep, crying/moaning whenever awake PO Intake: poor Granddaughter reports pt slept for 6 hours last pm. Granddaughter at bedside, both she and pt's sister agree in changing status to DNR. Pt has deferred decisions to her sister. Discussed determining goals of care - discussed prolonging her life vs prolonging her dying process. Discussed options regarding pain control and degree of sedation. Family aware of pt's emotional suffering in addition to her physical pain Review of Systems Pt asleep and sedated, unable to perform ROS Objective Vital Signs Date Time Temp Pulse Resp B/P (MAP) Pulse Ox O2 Delivery O2 Flow Rate FiO2 08/05/17 07:24 36.6 113 20 176/95 (122) 94 Nasal Cannula 4.0 08/05/17 00:15 36.5 107 22 140/78 (98) 95 Nasal Cannula 08/05/17 00:05 Nasal Cannula 4.0 08/04/17 18:46 36.3 84 17 136/79 (98) 97 Nasal Cannula 4.0 08/04/17 16:00 94 Nasal Cannula 4.0 08/04/17 15:32 36.4 85 17 157/73 (101) 94 Nasal Cannula 4.0 08/04/17 10:00 95 20 160/86 (110) Physical Exam General Appearance: + pertinent finding (asleep, appears comfortable) ENT: + nasal drainage Respiratory/Chest: no respiratory distress, no accessory muscle use Cardiovascular: regular rate, rhythm, + tachycardia Abdomen: soft, + pertinent finding (few bowel sounds) Extremities: no pedal edema Neurologic/Psychiatric: + pertinent finding (asleep and sedated) Skin: warm/dry Laboratory Results Last 24 Hours Test 08/04/17 11:36 08/04/17 16:43 08/04/17 19:42 08/05/17 05:13 Bedside Glucose 121 mg/dl 107 mg/dl 94 mg/dl White Blood Count 29.61 K/uL Red Blood Count 3.33 M/uL Hemoglobin 10.1 g/dL Hematocrit 31.1 % Mean Corpuscular Volume 93.4 fL Mean Corpuscular Hemoglobin 30.3 pg Mean Corpuscular Hemoglobin Concent 32.5 g/dl Platelet Count 109 K/uL Mean Platelet Volume 9.4 fL RDW Standard Deviation 64.4 fL RDW Coefficient of Variation 19.0 % Nucleated RBC Absolute Count (auto) 0.17 K/uL Neutrophils % (Manual) 71.7 % Lymphocytes % (Manual) 10.3 % Monocytes % (Manual) 5.1 % Eosinophils % (Manual) 1.7 % Basophils % (Manual) 2.6 % Metamyelocytes % 3.4 % Myelocytes % 4.3 % Blast Cells % 0.9 % Nucleated Red Blood Cells % 0.6 % Neutrophils # (Manual) 21.23 K/uL Total Absolute Neutrophils 21.23 K/uL Lymphocytes # (Manual) 3.05 K/uL Total Absolute Lymphocytes 3.05 K/uL Monocytes # (Manual) 1.51 K/uL Eosinophils # (Manual) 0.50 K/uL Basophils # (Manual) 0.77 K/uL Metamyelocytes # 1.01 K/uL Myelocytes # 1.27 K/uL Blast Cells # 0.27 K/uL Anisocytosis PRESENT Echinocytes 1+ Sodium Level 143 mmol/L Potassium Level 2.9 mmol/L Chloride Level 107 mmol/L Carbon Dioxide Level 28 mmol/L Anion Gap 8.0 mmol/L Blood Urea Nitrogen 5 mg/dl Creatinine 1.10 mg/dl Est Creatinine Clear Calc Drug Dose 48.4 ml/min Estimated GFR () 56.9 Estimated GFR (Non- 49.1 BUN/Creatinine Ratio 4.1 Random Glucose 106 mg/dl Calcium Level 8.1 mg/dl Test 08/05/17 07:43 Bedside Glucose 120 mg/dl Assessment and Plan (1) Lymphoma Status: Chronic Assessment & Plan: Now with blasts on peripheral smear with rising WBC count - discussed goal of comfort care (2) Weakness Status: Acute Assessment & Plan: Not improving due to severe back pain - doubt pt will be ambulatory even with good pain control (3) Back pain Status: Acute Assessment & Plan: Doing better on IV Dilaudid infusion. (4) Leukocytosis Status: Acute Assessment & Plan: Ow with blasts ion peripheral smear Family agrees to DNR status Methadone can be crushed and placed in buccal mucosa and be absorbed if family wants to cont to have some alertness as a goal. Encouraged comfort care which would entail stopping all PO meds, stopping IV fluids other than essential drips, stop lab draws/vitals and accu cks. Would increase Dilaudid drip to 0.3mg/hr with prn dosing available, stop methadone - if comfort care is goal, would schedule Ativan at 0.5 or 1 mg IV Q 8 hours ATC with a Q 4 hour prn . Pt's greatest discomfort is with turning for personal care - would premedicate and place rangel. If comfort is the goal - would consider not treating UTI as it is not giving her any discomfort. Total time - 35 min with >50% of time spent at bedside discussing treatment options , code status with granddaughter. Palliative Performance Scale: 30 % Continued [facility] stay due to: inadequate po fluid intake, inadequate oral pain control, ambulation difficulties, multiple IV medications needed Discharge planning: uncertain
[2017-08-05] MEDS: LIDODERM (LIDOCAINE) PATCH 5% TD SCH (09:11)
[2017-08-05] MEDS: INSULIN ASPART 100 UNITS/ML 3 ML PEN SC SCH ×4 (09:11→21:00)
[2017-08-05] MEDS: CEROVITE ADV FORMULA TAB PO SCH (09:12)
[2017-08-05] MEDS: LOSARTAN POTASSIUM 50 MG TAB PO SCH (09:12)
[2017-08-05] MEDS: OXYBUTYNIN CHLORIDE 5 MG TABCR PO SCH (09:12)
--- NOTE | 2017-08-05 10:28 | Progress Note ---
Progress Note Date of Service Aug 05, 2017. Progress Note ID Consult Dictated #[id number] A/P: 1. UTI - infected stone -Start Ertapenem, would give 10-14 days, doubt she is surgical candidate due to underlying comorbidities -thank you
[2017-08-05] MEDS ORDERED: ERTAPENEM IV 1 GM in SODIUM CHLOR 0.9% AD-VAN 50ML 50 ML IV SCH (11:00)
[2017-08-05] MEDS ORDERED: PANTOprazole INJ 40 MG in SYRINGE 0 ML IV SCH (11:00)
[2017-08-05] MEDS ORDERED: NURSING VERBAL MED ORDER ONE ×2 (11:15→11:45)
--- NOTE | 2017-08-05 11:44 | INFECT. DISEASE CONSULTATION ---
DATE OF CONSULTATION: 08/05/2017 DATE OF CONSULTATION: 08/05/2017 REQUESTING PHYSICIAN: Dr. Santoyo. HISTORY OF PRESENT ILLNESS: This is a 77-year-old female who has been admitted multiple times in the recent past. She does have a history of staghorn calculus and stenting which she has had recurrent urinary tract infections and has been treated with multiple courses of IV antibiotics. Additionally, she does have a history of B cell lymphoma and is receiving chemotherapy. She was recently discharged from the hospital on the and went home. Per the H&P she spent about 12 hours at home and had worsening weakness and overall pain and was subsequently readmitted to the hospital. It seems her pain was confined to the back. She did have an MRI which showed compression fracture. Orthopedics did follow with her but felt that surgery would be deferred due to her comorbidities. She had done well throughout her hospital stay and her white blood cell count began to increase and is currently 29.6. Her last normal CBC was done on the . Her white blood cell count at that time was 9.7. This has increased over the past few days. She has not had any documented fever; however, since admission to the hospital. Initially, she did have a urinalysis on the which showed greater than 30 WBCs, but no bacteria. This was repeated on the when her white blood cell count increased and she did again have greater than 30 WBCs, but at this time she had 4+ bacteria. Her initial urine culture on the was negative and final. Her blood cultures on the are also negative and final, however repeat urine culture was done on the and is now growing E. coli which is resistant to ampicillin and sulbactam, Ancef, Cipro, Levaquin, Zosyn and Bactrim. Infectious diseases was consulted for management of multidrug resistant E. coli. Upon review of old cultures her last urine culture was positive on 06/24/2017 with a similar resistance pattern. She has also grown this multiple times before dating back to February. She currently is not on any antibiotics. She is lethargic on my examination and receiving pain medication. She does open her eyes to her name, but she is nonverbal and I am unable to obtain any review of systems. She is also being followed at this time by palliative care. She was also evaluated by ortho during her stay but no plans for surgery at this time. PAST MEDICAL HISTORY: Significant for B cell lymphoma on chemotherapy, history of neutropenic fever, type 2 diabetes, hypertension, chronic pain, staghorn renal calculus with stenting, multiple UTIs with E. coli dating back to February, morbid obesity, history of DVT with IVC filter. FAMILY HISTORY: Noncontributory. SOCIAL HISTORY: Negative for tobacco use, alcohol use or drug use. ALLERGIES: SHE HAS ALLERGIES TO CEPHALOSPORIN, CIPRO AND PENICILLIN. CURRENT MEDICATIONS: Include Protonix, Lasix, Dilaudid, methadone, hydromorphone, Ativan, lorazepam, subQ heparin, oxycodone, insulin, folic acid, Lidoderm patch, losartan, multivitamins, Ditropan, allopurinol, Zofran, Tylenol, albuterol, Tums, Antivert, Zofran, Compazine, and Senokot. PHYSICAL EXAMINATION: VITAL SIGNS: She is afebrile, pulse 113, respiratory rate is 20, blood pressure is 176/95 and oxygen saturation is 94% on 4 liters. GENERAL: She is lethargic but arousable. She is nonverbal on my examination. HEAD, EYES, EARS, NOSE, AND THROAT: Mucous membranes are dry. HEART: Regular. LUNGS: Clear but there is poor inspiratory effort. ABDOMEN: Nondistended. SKIN: Without rash. LABORATORY STUDIES: Today CBC reveals a white blood cell count 29.6, hemoglobin 10.1 and platelets of 109. Chemistry panel reveals a sodium of 143, potassium 2.9, chloride 107, bicarb 28, BUN 5, creatinine 1.1, glucose is 120. Urinalysis is as above. Urine culture is growing E. coli with sensitivities as above. Blood cultures from the are negative and final. She did have a KUB on the which showed no obstruction and left ureteral stent to be in place and renal calculi noted. ASSESSMENT AND PLAN: Recurrent urinary tract infection with E. coli. She will be started on ertapenem. Ideally, her treatment would be 10-14 days of daily ertapenem. Blood cultures were negative and final. She has not had any additional fever. A C. diff was negative. Her CBC will be trended on antibiotics. Overall goals of care are being determined.\
[2017-08-05 15:26] VITALS: BP 155/54; PULSE 110; TEMP 36.8; O2SAT 98
--- NOTE | 2017-08-05 15:57 | Progress Note ---
Subjective Date of Service: Aug 05, 2017. Subjective Pt evaluation today including: conversation w/ patient, physical exam, chart review, lab review, review of studies, review of inpatient medication list Sedated on exam Sister and granddaughter at bedside Changes code status to DNR Problem List Medical Problems: (1) Diarrhea Status: Acute (2) Head injury Status: Acute (3) Hypokalemia Status: Acute (4) Hypomagnesemia Status: Acute (5) Hypomagnesemia Status: Acute (6) Neutropenia Status: Acute (7) Pancytopenia Status: Acute (8) Pancytopenia Status: Acute (9) Pancytopenia Status: Acute (10) Sepsis Status: Acute (11) Somnolence Status: Acute (12) UTI (urinary tract infection) Status: Acute Review of Systems Unable to obtain due to somnolent state Objective Vital Signs Date Time Temp Pulse Resp B/P (MAP) Pulse Ox O2 Delivery O2 Flow Rate FiO2 08/05/17 15:26 36.8 110 16 155/54 (87) 98 Nasal Cannula 4.0 08/05/17 08:00 Nasal Cannula 4.0 08/05/17 07:24 36.6 113 20 176/95 (122) 94 Nasal Cannula 4.0 08/05/17 00:15 36.5 107 22 140/78 (98) 95 Nasal Cannula 08/05/17 00:05 Nasal Cannula 4.0 08/04/17 18:46 36.3 84 17 136/79 (98) 97 Nasal Cannula 4.0 08/04/17 16:00 94 Nasal Cannula 4.0 Physical Exam General Appearance: WD/WN, + moderate distress Eyes: normal inspection, PERRL, EOMI, sclerae normal Neck: supple, no adenopathy, thyroid normal, no JVD Respiratory/Chest: chest non-tender, no respiratory distress, + crackles Cardiovascular: no JVD, no murmur, + tachycardia Abdomen: normal bowel sounds, soft, + tenderness Neurologic/Psychiatric: no motor/sensory deficits, + depressed affect Laboratory Results Last 24 Hours Test 08/04/17 16:43 08/04/17 19:42 08/05/17 05:13 08/05/17 07:43 Bedside Glucose 107 mg/dl 94 mg/dl 120 mg/dl White Blood Count 29.61 K/uL Red Blood Count 3.33 M/uL Hemoglobin 10.1 g/dL Hematocrit 31.1 % Mean Corpuscular Volume 93.4 fL Mean Corpuscular Hemoglobin 30.3 pg Mean Corpuscular Hemoglobin Concent 32.5 g/dl Platelet Count 109 K/uL Mean Platelet Volume 9.4 fL RDW Standard Deviation 64.4 fL RDW Coefficient of Variation 19.0 % Nucleated RBC Absolute Count (auto) 0.17 K/uL Neutrophils % (Manual) 71.7 % Lymphocytes % (Manual) 10.3 % Monocytes % (Manual) 5.1 % Eosinophils % (Manual) 1.7 % Basophils % (Manual) 2.6 % Metamyelocytes % 3.4 % Myelocytes % 4.3 % Blast Cells % 0.9 % Nucleated Red Blood Cells % 0.6 % Neutrophils # (Manual) 21.23 K/uL Total Absolute Neutrophils 21.23 K/uL Lymphocytes # (Manual) 3.05 K/uL Total Absolute Lymphocytes 3.05 K/uL Monocytes # (Manual) 1.51 K/uL Eosinophils # (Manual) 0.50 K/uL Basophils # (Manual) 0.77 K/uL Metamyelocytes # 1.01 K/uL Myelocytes # 1.27 K/uL Blast Cells # 0.27 K/uL Anisocytosis PRESENT Echinocytes 1+ Sodium Level 143 mmol/L Potassium Level 2.9 mmol/L Chloride Level 107 mmol/L Carbon Dioxide Level 28 mmol/L Anion Gap 8.0 mmol/L Blood Urea Nitrogen 5 mg/dl Creatinine 1.10 mg/dl Est Creatinine Clear Calc Drug Dose 48.4 ml/min Estimated GFR () 56.9 Estimated GFR (Non- 49.1 BUN/Creatinine Ratio 4.1 Random Glucose 106 mg/dl Calcium Level 8.1 mg/dl Test 08/05/17 11:55 Bedside Glucose 117 mg/dl Assessment and Plan 77-year-old female with 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 Recently she had a fall and was admitted to the hospital. Then from the hospital she was discharged to rehabilitation. On July 24 she was discharged from rehabilitation to her house. She spent the night there but yesterday she went to the bathroom and was not able to stand up due to severe weakness. Significant weakness was manifested in her left lower extremity that gives up on her. Patient came to the hospital for further evaluation and management. Significant generalized weakness and deconditioning. PT/OT consulted, difficult to obtain as pt is sedated during visits Continue supportive care Nutrition supplement with IV fluids and dextrose Currently DNR code status, son will be flying in 08/06, likely to be comfort care soon Severe back pain/ acute compression fracture in L1 Due to her current active cancer, MRI lumbar spine reviewed Orthopedic surgeon was consulted. surgical intervention is deferred until her general condition improves Cont dilaudid drip and IV dilaudid PRN Encouraged pt and family to partake of PT consult palliative care Dr. Levy, appreciated Vit D level 21 Discussed with family and patient and they agree with the plan Pyuria present on admission Repeat urine cx pos for MDR EColi, WBC elev, family in agreement with no antibx oncology consulted per family request, no future tx as pt poor candidate WBC 25-->29 Diabetes mellitus type 2, will place her on sliding scale DVT prophylaxis/SCD boot as platelets count only fluctuating from 75-95 Patient is currently full code Continued [facility] stay due to: inadequate po fluid intake, inadequate oral pain control, ambulation difficulties, multiple IV medications needed Discharge planning: uncertain
[2017-08-06 00:35] VITALS: BP 126/106; PULSE 89; TEMP 36.3; O2SAT 93
[2017-08-06] MEDS: HYDROmorphone/NSS 100MG/100ML 100 ML IV PRN (05:27)
[2017-08-06] MEDS: D5W AND NSS 1,000 ML IV SCH (05:29)
[2017-08-06] MEDS: HYDROmorphone INJ 0.5 MG/0.5 ML SYR IV PRN ×3 (06:01→17:25)
[2017-08-06] MEDS: PROMETHAZINE HCL INJ 12.5 MG in SODIUM CHLORIDE 0.9% 50ML 50 ML IV PRN ×2 (06:01→15:53)
[2017-08-06 06:26] LABS: BUN/CREATININE RATIO 4.5 (10-20); CALCIUM 7.8 mg/dl (8.5-10.1); POTASSIUM 2.8 mmol/L (3.5-5.1)
[2017-08-06 06:35] LABS: HEMATOCRIT 33.2 % (37-47); MEAN CELL VOLUME 95.4 fL (80-100); MEAN CORPUSCULAR HEMOGLOBIN 29.6 pg (25-34); MEAN PLATELET VOLUME 9.4 fL (7.4-10.4); PLATELET COUNT 104 K/uL (130-400); RED BLOOD COUNT 3.48 M/uL (4.2-5.4); WHITE BLOOD COUNT 39.92 K/uL (4.8-10.8)
[2017-08-06 07:56] LABS: BASO ABS # 0.36 K/uL (0-0.2); BASOPHIL % 0.9 %; COMPLETE YES; EOSINOPHIL % 2.6 %; LYMPH ABS # 2.08 K/uL (1.2-3.4); LYMPHOCYTE % 5.2 %; META ABS # 4.15 K/uL (0-0); METAMYELOCYTE % 10.4 %; MICROCYTOSIS PRESENT; NEUTROPHILS % 66.9 %; PLT ESTIMATE DECREASED
[2017-08-06] MEDS: LIDODERM (LIDOCAINE) PATCH 5% TD SCH (08:41)
[2017-08-06] MEDS: INSULIN ASPART 100 UNITS/ML 3 ML PEN SC SCH ×2 (09:25→11:00)
[2017-08-06] MEDS: ONDANSETRON INJ 2 MG/ML 2 ML VIAL IV PRN ×2 (11:04→20:46)
[2017-08-06] MEDS ORDERED: NURSING VERBAL MED ORDER ONE ×2 (11:30→16:15)
--- NOTE | 2017-08-06 12:58 | Progress Note ---
Subjective Date of Service: Aug 06, 2017. Subjective Pt evaluation today including: conversation w/ patient, physical exam, chart review, lab review, review of studies, review of inpatient medication list Pt somnolent and sedated on exam Granddaughter and sister at bedside Problem List Medical Problems: (1) Diarrhea Status: Acute (2) Head injury Status: Acute (3) Hypokalemia Status: Acute (4) Hypomagnesemia Status: Acute (5) Hypomagnesemia Status: Acute (6) Neutropenia Status: Acute (7) Pancytopenia Status: Acute (8) Pancytopenia Status: Acute (9) Pancytopenia Status: Acute (10) Sepsis Status: Acute (11) Somnolence Status: Acute (12) UTI (urinary tract infection) Status: Acute Review of Systems Unable to obtain due to somnolent state Objective Vital Signs Date Time Temp Pulse Resp B/P (MAP) Pulse Ox O2 Delivery O2 Flow Rate FiO2 08/06/17 09:45 Nasal Cannula 4.0 08/06/17 00:35 36.3 89 18 126/106 (113) 93 08/06/17 00:05 Nasal Cannula 4.0 08/05/17 20:05 Nasal Cannula 4.0 08/05/17 16:00 Nasal Cannula 4.0 08/05/17 15:26 36.8 110 16 155/54 (87) 98 Nasal Cannula 4.0 Physical Exam General Appearance: WD/WN, no apparent distress Eyes: normal inspection, PERRL, EOMI, sclerae normal Neck: supple, no adenopathy, thyroid normal Respiratory/Chest: chest non-tender, no accessory muscle use, + decreased breath sounds, + crackles Cardiovascular: no gallop, + bradycardia Abdomen: normal bowel sounds, non tender, soft, no organomegaly Extremities: normal range of motion, non-tender, normal inspection, + pedal edema Neurologic/Psychiatric: no motor/sensory deficits, + disoriented Laboratory Results Last 24 Hours Test 08/05/17 16:31 08/05/17 19:37 08/06/17 05:28 Bedside Glucose 119 mg/dl 123 mg/dl White Blood Count 39.92 K/uL Red Blood Count 3.48 M/uL Hemoglobin 10.3 g/dL Hematocrit 33.2 % Mean Corpuscular Volume 95.4 fL Mean Corpuscular Hemoglobin 29.6 pg Mean Corpuscular Hemoglobin Concent 31.0 g/dl Platelet Count 104 K/uL Mean Platelet Volume 9.4 fL RDW Standard Deviation 68.3 fL RDW Coefficient of Variation 19.9 % Nucleated RBC Absolute Count (auto) 0.36 K/uL Neutrophils % (Manual) 66.9 % Lymphocytes % (Manual) 5.2 % Monocytes % (Manual) 7.0 % Eosinophils % (Manual) 2.6 % Basophils % (Manual) 0.9 % Metamyelocytes % 10.4 % Myelocytes % 7.0 % Nucleated Red Blood Cells % 0.9 % Neutrophils # (Manual) 26.71 K/uL Total Absolute Neutrophils 26.71 K/uL Lymphocytes # (Manual) 2.08 K/uL Total Absolute Lymphocytes 2.08 K/uL Monocytes # (Manual) 2.79 K/uL Eosinophils # (Manual) 1.04 K/uL Basophils # (Manual) 0.36 K/uL Metamyelocytes # 4.15 K/uL Myelocytes # 2.79 K/uL Platelet Estimate DECREASED Microcytosis PRESENT Sodium Level 146 mmol/L Potassium Level 2.8 mmol/L Chloride Level 111 mmol/L Carbon Dioxide Level 28 mmol/L Anion Gap 7.0 mmol/L Blood Urea Nitrogen 5 mg/dl Creatinine 1.00 mg/dl Est Creatinine Clear Calc Drug Dose 53.3 ml/min Estimated GFR () 63.8 Estimated GFR (Non- 55.1 BUN/Creatinine Ratio 4.5 Random Glucose 139 mg/dl Calcium Level 7.8 mg/dl Assessment and Plan 77-year-old female with 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 Recently she had a fall and was admitted to the hospital. Then from the hospital she was discharged to rehabilitation. On July 24 she was discharged from rehabilitation to her house. She spent the night there but yesterday she went to the bathroom and was not able to stand up due to severe weakness. Significant weakness was manifested in her left lower extremity that gives up on her. Patient came to the hospital for further evaluation and management. Significant generalized weakness and deconditioning. PT/OT consulted, difficult to obtain as pt is sedated during visits Continue supportive care DC IVF and labs per sister Currently DNR code status, son will be flying in 08/06, likely to be comfort care soon Severe back pain/ acute compression fracture in L1 Due to her current active cancer, MRI lumbar spine reviewed Orthopedic surgeon was consulted. surgical intervention is deferred until her general condition improves Cont dilaudid drip and IV dilaudid PRN Encouraged pt and family to partake of PT consult palliative care Dr. Levy, appreciated Vit D level 21 Discussed with family and patient and they agree with the plan Pyuria present on admission Repeat urine cx pos for MDR EColi, WBC elev, family in agreement with no antibx oncology consulted per family request, no future tx as pt poor candidate WBC 25-->29 Diabetes mellitus type 2, will place her on sliding scale DVT prophylaxis/SCD boot as platelets count only fluctuating from 75-95 Patient is currently full code Continued [facility] stay due to: inadequate po fluid intake, inadequate oral pain control, ambulation difficulties, multiple IV medications needed Discharge planning: uncertain
[2017-08-06] MEDS ORDERED: ATROPINE SULFATE 1% OP SOLN 2 ML BTL OP PRN (16:30)
[2017-08-06] MEDS: SCOPOLAMINE 1.5 MG TDSY TD SCH (16:36)
[2017-08-06] MEDS: CHECK SCOPOLAMINE PATCH PLACEMENT SCH (23:40)
[2017-08-06] MEDS: LORAZEPAM INJ 0.5 MG in SYRINGE 0.75 ML IV PRN (23:50)
[2017-08-07] MEDS: PROMETHAZINE HCL INJ 12.5 MG in SODIUM CHLORIDE 0.9% 50ML 50 ML IV PRN (02:48)
[2017-08-07] MEDS: LORAZEPAM INJ 0.5 MG in SYRINGE 0.75 ML IV PRN ×2 (05:53→13:49)
[2017-08-07] MEDS: HYDROmorphone INJ 0.5 MG/0.5 ML SYR IV PRN ×4 (06:17→17:09)
[2017-08-07] MEDS: CHECK SCOPOLAMINE PATCH PLACEMENT SCH ×3 (08:20→23:05)
[2017-08-07] MEDS: LIDODERM (LIDOCAINE) PATCH 5% TD SCH (08:20)
[2017-08-07] MEDS ORDERED: NURSING VERBAL MED ORDER ONE (14:00)
[2017-08-07] MEDS: HYDROmorphone/NSS 100MG/100ML 100 ML IV PRN (14:13)
--- NOTE | 2017-08-07 15:06 | Progress Note ---
Subjective Date of Service: Aug 07, 2017. Subjective Pt evaluation today including: conversation w/ patient, physical exam, chart review, lab review, review of studies, review of inpatient medication list Pt resting in bed comfortably Granddaughter at bedside No acute events Problem List Medical Problems: (1) Diarrhea Status: Acute (2) Head injury Status: Acute (3) Hypokalemia Status: Acute (4) Hypomagnesemia Status: Acute (5) Hypomagnesemia Status: Acute (6) Neutropenia Status: Acute (7) Pancytopenia Status: Acute (8) Pancytopenia Status: Acute (9) Pancytopenia Status: Acute (10) Sepsis Status: Acute (11) Somnolence Status: Acute (12) UTI (urinary tract infection) Status: Acute Objective Vital Signs Date Time Temp Pulse Resp B/P (MAP) Pulse Ox O2 Delivery O2 Flow Rate FiO2 08/07/17 08:20 Nasal Cannula 4.0 08/07/17 00:00 Nasal Cannula 4.0 08/06/17 20:00 Nasal Cannula 4.0 08/06/17 16:51 Nasal Cannula 4.0 Physical Exam General Appearance: WD/WN, no apparent distress Neck: supple, no adenopathy, thyroid normal Respiratory/Chest: chest non-tender, + accessory muscle use, + wheezing Cardiovascular: regular rate, rhythm, no JVD, no murmur Abdomen: normal bowel sounds, non tender, soft Extremities: non-tender, normal inspection, + pedal edema Assessment and Plan 77-year-old female with 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 Recently she had a fall and was admitted to the hospital. Then from the hospital she was discharged to rehabilitation. On July 24 she was discharged from rehabilitation to her house. She spent the night there but yesterday she went to the bathroom and was not able to stand up due to severe weakness. Significant weakness was manifested in her left lower extremity that gives up on her. Patient came to the hospital for further evaluation and management. Significant generalized weakness and deconditioning. PT/OT consulted, difficult to obtain as pt is sedated during visits Continue supportive care DC IVF and labs per sister Currently DNR code status CURRENTLY COMFORT MEASURES, INC DILAUDID DRIP TO 0.8 mg/hr Severe back pain/ acute compression fracture in L1 Due to her current active cancer, MRI lumbar spine reviewed Orthopedic surgeon was consulted. surgical intervention is deferred until her general condition improves Cont dilaudid drip and IV dilaudid PRN Encouraged pt and family to partake of PT consult palliative care Dr. Levy, appreciated Vit D level 21 Discussed with family and patient and they agree with the plan Pyuria present on admission Repeat urine cx pos for MDR EColi, WBC elev, family in agreement with no antibx oncology consulted per family request, no future tx as pt poor candidate WBC 25-->29 FAMILY DISCUSSED TO NOT TREAT ANYMORE DUE TO COMFORT MEASURES Diabetes mellitus type 2, will place her on sliding scale DVT prophylaxis/SCD boot as platelets count only fluctuating from 75-95 Patient is currently full code Continued [facility] stay due to: inadequate po fluid intake, inadequate oral pain control, ambulation difficulties, multiple IV medications needed Discharge planning: uncertain
[2017-08-08] MEDS: LIDODERM (LIDOCAINE) PATCH 5% TD SCH (08:41)
[2017-08-08] MEDS: CHECK SCOPOLAMINE PATCH PLACEMENT SCH ×3 (08:42→23:59)
[2017-08-08] MEDS: HYDROmorphone INJ 0.5 MG/0.5 ML SYR IV PRN ×2 (10:49→20:47)
--- NOTE | 2017-08-08 11:11 | Oncology Consultation ---
Oncology/Heme Consultation Date of Consultation: Aug 08, 2017. Attending Physician: Monica Lindsay MD Reason for Consultation: History of high-grade non-Hodgkin's lymphoma History of Present Illness Ms. Perez was seen today in follow-up. She is a 77-year-old female with a history of high-grade B-cell non-Hodgkin's lymphoma. She had presented in March of this year with a lymphocytosis as well as a platelet count of 55,000. Flow cytometric studies would reveal a monoclonal B-cell population. And LDH at that time was quite high and as I recall was over 3000. The presumptive diagnosis was a probable high-grade lymphoma. No definite disease was recognized beyond marrow involvement. She was transferred to [facility] where a bone marrow biopsy would reveal near total replacement with a high-grade B-cell lymphoma. The tumors cells were positive for [place] and negative for BCL 1 and BCL-2. She would receive 2 cycles of dose [place] [facility] [place] stay during that time. Her performance status at the outset was never very good and it has declined since. She was treated here with R-CHOP with the last treatment being 07/07. She was currently admitted with back pain after a fall at home. An MRI of the lumbar spine showed a compressed L1 fracture. Her pain has been very uncontrollable. There have been multiple conversations with the family and currently the patient is receiving a continuously infused IV Dilaudid drip to control her pain. Past Medical/Surgical History Medical Problems: (1) Diarrhea Status: Acute (2) Head injury Status: Acute (3) Hypokalemia Status: Acute (4) Hypomagnesemia Status: Acute (5) Hypomagnesemia Status: Acute (6) Neutropenia Status: Acute (7) Pancytopenia Status: Acute (8) Pancytopenia Status: Acute (9) Pancytopenia Status: Acute (10) Sepsis Status: Acute (11) Somnolence Status: Acute (12) UTI (urinary tract infection) Status: Acute Family History No pertinent family history Social History Smoking Status: Never Smoker Smokeless Tobacco Use: No Alcohol Use: none Drug Use: none Marital Status: Occupation Status: retired Allergies Coded Allergies: Cephalosporins (Unverified Allergy, Intermediate, BREATHING PROBLEMS, ) Ciprofloxacin (Verified Allergy, Intermediate, RASH, 07/05/17) Phlebitis Penicillins (Verified Allergy, Mild, HIVES, 07/05/17) Home Medications Scheduled Albuterol Hfa (Ventolin Hfa), 2 PUFFS INH QID Allopurinol (Zyloprim), 200 MG PO QPM Docusate Sodium (Docusate Sodium), 100 MG PO AMHS Dronabinol (Marinol), 2.5 MG PO BID Fentanyl (Duragesic), 25 MCG TOP Q72H Fluticasone Propionate (Nasal) (Flonase Allergy Relief), 2 SPRAYS VIGNESH DAILY Folic Acid (Folic Acid), 1 MG PO QAM Furosemide (Lasix), 20 MG PO QAM Heparin Sodium (Porcine) Lock (Heparin Lock Flush), 5 ML IVF DAILY Lidocaine (Lidocaine), 1 PATCH TD QAM Losartan Potassium (Cozaar), 100 MG PO DAILY Multivitamins/Minerals (Mvi With Minerals), 1 TAB PO DAILY Oxybutynin Chloride Er (Ditropan Xl), 10 MG PO QAM Pantoprazole (Protonix), 40 MG PO DAILY Pot Phosphate Monobasic W/ Sod (Phospha 250 Neutral), 1 TAB PO QID Potassium Ext Rel (Klor-Con), 40 MEQ PO DAILY Sitagliptin Phosphate (Januvia), 100 MG PO QAM Sodium Chloride (Saline Flush), 10 ML IVF DAILY Scheduled PRN Acetaminophen (Tylenol), 500 MG PO Q4 PRN for MILD-MOD PAIN Albuterol Hfa (Ventolin Hfa), 2 PUFFS INH QID PRN for Wheezing Calcium Carbonate (Tums), 500 MG PO Q4 PRN for Indigestion Hydrocodone/Acetaminophen 5MG/325MG ([place] 5MG/325MG), 1 TABLET PO Q4 PRN for Pain Meclizine Hcl (Meclizine Hcl), 25 MG PO TID PRN for VERTIGO Prochlorperazine (Compazine Supp), 25 MG HI Q6H PRN for Nausea or Vomiting Sennosides-Docusate Sodium (Senna S), 1 TABS PO Q24H PRN for Constipation Current Inpatient Medications Current Inpatient Medications Medications (Trade) Dose Ordered Sig/[place] Route Start Time Stop Time Status Last Admin Dose Admin Acetaminophen (Tylenol Tab) 650 mg Q4H PRN PO 07/25/17 18:15 9/27/17 18:14 07/31/17 19:45 650 MG Albuterol (Ventolin Hfa Inhaler) 2 puffs QID PRN INH 07/25/17 18:15 08/24/17 18:14 Calcium Carbonate (Tums Chew Tab) 500 mg Q4 PRN PO 07/25/17 18:15 08/24/17 18:14 Lidocaine (Lidoderm Patch 5%) 1 patch QAM TD 07/26/17 08:00 08/25/17 08:59 08/07/17 08:20 1 PATCH Meclizine HCl (Antivert Tab) 25 mg TID PRN PO 07/25/17 18:15 08/24/17 18:14 08/03/17 08:04 25 MG Ondansetron HCl (Zofran Odt) 8 mg Q6H PRN SL 07/25/17 18:15 08/24/17 18:14 08/04/17 03:41 8 MG Prochlorperazine (Compazine Supp) 25 mg Q6H PRN HI 07/25/17 18:15 08/24/17 18:14 07/28/17 16:20 25 MG Senna/Docusate Sodium (Senokot S Tab) 1 tab Q24H PRN PO 07/25/17 18:15 08/24/17 18:14 Miscellaneous (Remove Lidoderm Patch) 1 ea DAILY@21 N/A 07/25/17 21:00 08/24/17 20:59 08/07/17 21:00 1 EA Ondansetron HCl (Zofran Inj) 4 mg Q6H PRN IV 07/25/17 18:30 08/24/17 18:29 08/06/17 20:46 4 MG Miscellaneous (Iv Fluids Completed) 1 ea PRN PRN N/A 07/25/17 18:30 07/25/18 18:29 07/26/17 10:28 1 EA Glucose (Glucose 40% Gel) 15-30 GRAMS 15 GRAMS... UD PRN PO 07/26/17 19:45 08/25/17 19:44 08/02/17 07:33 15 GM Glucose (Glucose Chew Tab) 4-8 Tablets 4 Tabl... UD PRN PO 07/26/17 19:45 9/28/17 19:44 Dextrose (Dextrose 50% 50ML Syringe) 25-50ML OF 50% DW IV FOR... UD PRN IV 07/26/17 19:45 08/25/17 19:44 08/03/17 13:01 25 ML Glucagon (Glucagon Inj) 1 mg UD PRN SQ 07/26/17 19:45 08/25/17 19:44 Oxycodone/ Acetaminophen (Percocet 10-325MG Tab) 1 tab Q4H PRN PO 07/28/17 07:30 08/11/17 07:29 08/04/17 13:22 1 TAB Heparin Sodium (Porcine) (Heparin 10 Unit/ ml 5 ml Flush) 5 ml PRN PRN FLUSH 07/28/17 23:45 08/27/17 23:44 08/06/17 11:04 5 ML Hydromorphone HCl (Dilaudid Tab) 2 mg Q8 PRN PO 07/29/17 08:45 08/12/17 08:44 08/03/17 08:15 2 MG Promethazine HCl 12.5 mg/Sodium Chloride 50.5 ml @ 204 mls/hr Q6H PRN IV 07/29/17 10:15 08/28/17 10:14 08/07/17 02:48 204 MLS/HR Hydromorphone HCl (Dilaudid Inj) 1 mg Q6H PRN IV 08/01/17 14:30 08/15/17 14:29 08/04/17 09:09 1 MG Lorazepam 0.5 mg/ Syringe 1 ml @ 1 mls/min Q6H PRN IV 08/04/17 05:15 09/03/17 05:14 08/07/17 13:49 1 MLS/MIN Lorazepam (Ativan Inj) 0.5 mg Q6H PRN IV 08/04/17 05:15 09/03/17 05:14 08/05/17 10:23 0.5 MG Hydromorphone HCl 100 ml @ 0 mls/hr Q0M PRN IV 08/04/17 12:45 08/18/17 12:44 08/07/17 14:13 0.8 MLS/HR Hydromorphone HCl (Dilaudid Inj) 0.5 mg Q1H PRN IV 08/05/17 11:45 08/19/17 11:44 08/08/17 10:49 0.5 MG Scopolamine (Transderm-Scop Patch) 1.5 mg Q3D@0900 TD 08/06/17 17:00 09/05/17 16:59 08/06/17 16:36 1.5 MG Miscellaneous (Remove Transderm-Scop Patch) 1 ea Q3D@0859 N/A 08/09/17 08:59 09/08/17 08:58 Miscellaneous Information (Check Scopolamine Patch Placement) 1 ea QS N/A 08/07/17 00:00 09/06/17 00:00 08/08/17 08:42 1 EA Atropine Sulfate (ATROPINE SULFATE 1% Op Soln 2 ML) FOR SECRETIONS Q1H PRN OP 08/06/17 16:30 09/05/17 16:29 Review of Systems Unable to obtain an accurate review of systems. The patient is somnolent Physical Exam Date Time Temp Pulse Resp B/P (MAP) Pulse Ox O2 Delivery O2 Flow Rate FiO2 08/08/17 09:26 Nasal Cannula 4.0 08/08/17 00:00 Nasal Cannula 4.0 08/07/17 20:00 Nasal Cannula 4.0 08/07/17 15:06 Nasal Cannula 4.0 Constitutional: vitals are stable. Alopecic somnolent female Eyes: Eyes are POLLO EOMI without conjuctival erythema or icterus. ENT: External examination was negative for masses. Neck: Negative for masses or palpable thyromegaly Respiratory: Lung sounds were generally clear bilaterally Cardiovascular: Heart was RRR without significant murmur, gallops aoe rubs Gastrointestinal: No palpable hepatic or splenomegaly. The abdomen was soft with normal bowel sounds. Lymphatic system: there was no palpable peripheral lymphadenopathy Musculoskeletal System: The musculoskeletal system seemed concordant with age. Skin: The skin was negative for jaundice. Neurologic exam: The exam was seemingly negative for any definite focal signs Breast exam: Not done Extremities: +1 nontender extremity edema Assessment & Plan High-grade non-Hodgkin's lymphoma. It has been very difficult to treat this patient systemically. Her performance status at the outset of her therapy was easily graded at 2.0-3.0 on an ECOG scale and as stated same if now not worsened. It should be made clear however that it appears that her lymphoma has responded some. Her last LDH was actually quite good or certainly much better than at the outset along with that her cytopenias that have been much more prominent in the past are less so now. With that then it appears that the lymphoma has responded however Ms. Perez certainly appears that she is not able to physiologically handle the therapy that would be needed. She has not received the number of cycles that would be expected to perhaps obtain a sustained response and it is quite possible that she may never be able to receive further systemic cytoreductive therapy. At this juncture it appears that the back pain that has led to the continuesly infused Dilaudid drip is from an L1 compression fracture that appears acute and after a fall on the MRI of her lumbar spine. It would be preferable to be able to move away from IV Dilaudid with the understanding that what is being treated his pain that may not be necessarily lymphoma related. This was reviewed with the family today. They understand however that in regards to the current treatment of her lymphoma that she may not be able to receive further treatment and subsequently this lymphoma could be deemed without further therapy as being incurable. For now and again it would be better to view her current pain as probably not lymphoma related and secondary then to an acute L1 compression fracture from a fall. She does appear to have urinary tract infection and antibiotics would seem reasonable. Perhaps consultation to the pain service would be in order. We will follow along with you. All reviewed with Dr. Lindsay and appreciate everyone's help.
--- NOTE | 2017-08-08 13:36 | Hospitalist Progress Note ---
Hospitalist Progress Note Date of Service Aug 08, 2017. Subjective Pt evaluation today including: conversation w/ patient, conversation w/ family , conversation w/ business consultant (Palliative Care Susie Lemus, Oncology Dr. Fajardo) Voiding: rangel catheter in place Pt remains on Dilaudid gtt, very drowsy, opens eyes to verbal stimulus but otherwise does not speak. Granddaughter and son at bedside, report no food or drink in many days, appears comfortable. Discussion with Dr. Fajardo today-he said that her lymphoma was responding to treatment, however her condition may preclude her ro further treatment, but recommended trying to transition off of IV dilaudid and to treat her UTI. 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, were previously told there was "no hope." Additional Comments: cannot give ROS due to mental status Objective Vital Signs Date Time Temp Pulse Resp B/P (MAP) Pulse Ox O2 Delivery O2 Flow Rate FiO2 08/08/17 09:26 Nasal Cannula 4.0 08/08/17 00:00 Nasal Cannula 4.0 08/07/17 20:00 Nasal Cannula 4.0 08/07/17 15:06 Nasal Cannula 4.0 Physical Exam General Appearance: no apparent distress, + obese (lying in bed) Eyes: normal inspection, sclerae normal ENT: + pertinent finding (very dry MM and dry tongue, tachy lips) Neck: trachea midline Respiratory/Chest: lungs clear, + decreased breath sounds (at bases bilat) Cardiovascular: no murmur, + tachycardia (with reg rhythm) Abdomen: normal bowel sounds, non tender, soft (and obese) Extremities: + swelling (1-2+ pitting edema legs bilat) Neurologic/Psychiatric: + pertinent finding (lethargic, somnolent, wakes briefly to verbal stimulus but does not answer questions) Skin: normal color, warm/dry Assessment and Plan 77-year-old female with 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 Recently she had a fall and was admitted to the hospital. Then from the hospital she was discharged to rehabilitation. On July 24 she was discharged from rehabilitation to her house. She spent the night there but yesterday she went to the bathroom and was not able to stand up due to severe weakness. Significant weakness was manifested in her left lower extremity that gives up on her. Patient came to the hospital for further evaluation and management. Significant generalized weakness and deconditioning from chemotherapy and multiple hospitalizations. Now with L1 compression fracture causing severe pain that was not controlled with pain meds initially, now controlled on Dilaudid gtt. 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 CURRENTLY COMFORT MEASURES, INC DILAUDID DRIP. Oncology today suggesting treatment of UTI and transitioning off IV DIlaudid. Family requesting second opinion from Palliative Care consultation. Discussed her overall poor condition, comorbidities, and risks/benefits of treating UTI which may ultimately not make much difference. Family reports she has a low pain tolerance and would not want to be in pain, but are looking for "hope." Severe back pain/ acute compression fracture in L1- Due to her current active cancer, MRI lumbar spine reviewed Orthopedic surgeon was consulted. surgical intervention is deferred until her general condition improves Cont dilaudid drip and IV dilaudid PRN for now and consult Pain Management as per Oncology--> but if remains on comfort measures after Palliative Discussion today, then continue Dilaudid gtt consult palliative care Dr. Levy, appreciated Vit D level 21 Lymphoma-responded to treatment as per Oncology, but not likely to recover enough to restart chemo at this point. Pyuria present on admission. H/o staghorn calculus and multiple MDR UTIs Repeat urine cx pos for MDR EColi, WBC elev, family in agreement with no antibx --> now considering abx if it could help pt improve--> highly doubt this but will discuss further with Palliative Care today and determine if to start abx oncology consulted per family request, no future tx as pt poor candidate WBC 25-->29 -> 39 Diabetes mellitus type 2, will place her on sliding scale DVT prophylaxis-SCD DNR Dispo-either remain on [employer]PER[employer] here vs transition home with Hospice Discussed with family memebers and Palliative Care and Oncology for total 45 min today
--- NOTE | 2017-08-08 17:18 | Palliative Care Consultation ---
Consultation Date of Consultation: Aug 08, 2017. Requesting Physician: Dr. Lindsay Attending Physician: Dr. Lindsay Reason for Consultation: Goals of care Past Medical/Surgical History Medical History: B-cell lymphoma COPD Htn Spastic bladder GERD DM Social History Smoking Status: Never Smoker History of Alcohol Use: No Drug Use: none Marital Status: Housing Status: lives with family Occupation Status: retired This 77 year old female with high grade B-cell lymphoma presented to the hospital 13 days ago with weakness due to lymphoma and, per her sister, diarrhea. Most of history obtained from record, some from her family. Apparently she presented in March 2017 with lymphocytosis and plt count 55k. She was found to have B-cell lymphoma and underwent several rounds of chemo including a reduced dose due to intolerance (per family). She unfortunately has been declining as far as her performance status, had a fall at home recently. MRI showed L1 fracture. During this hospital stay, patient has apparently had a rapid decline per documentation and family's recount. She also was shown to have E. coli in urine, does have history of recurrent UTI with staghorn calculus. She received two doses of doxycycline. Ramonita unfortunately was not showing any signs of improvement as far as mental status, strength or nutritional intake. Her pain became uncontrollable, patient was constantly yelling out in pain and asking for help. Several medications were attempted including fentanyl patch, methadone, and PRN IV Dilaudid. Eventually, after many conversations between hospitalist, palliative care physician, oncologist, and patient's family, the decision was made for comfort care. Continuous Dilaudid infusion was started and patient finally achieved pain relief and a state of comfort. In the meantime, patient's son who lives in [place], [place], made his way to [place] and requested for a formal oncology consult "to take one last look into her chart (per son)." Dr. Fajardo saw patient and met with family. In his opinion, the lymphoma itself was apparently responding to the chemotherapy. However, her deconditioning worsened as well as the pain from the lumbar fracture. The option was presented to family that it could be attempted to wean patient off Dilaudid infusion and aggressively treat UTI and other reversible issues. Family requested a second palliative care opinion as well. I met with patient's family including a son (and his ), granddaughter, sister (patient's main decision maker per patient's wish as previously documented when patient awake), and a niece, outside of patient's room. We spent an hour and 45 minutes discussing patient's condition and family's goals of care on patient's behalf. They are quite upset and feeling conflicted on which route to take: continuing comfort measures only vs. attempting to wean off Dilaudid infusion, treating UTI and other reversible causes. All members of family are sure of the fact they do not want the patient to suffer any more, but they also want to give her every chance to live/recover. I did convey to the family, as they asked what I would do if she were my loved one, that it is difficult for me to recommend one way or the other given I am meeting her for the first time today and just familiarizing myself with her story. Finally, family decided that they wanted to obtain some lab results and further discuss with each other and providers on plan of care. Review of Systems unable to obtain ROS due to patient's mental status Allergies Coded Allergies: Cephalosporins (Unverified Allergy, Intermediate, BREATHING PROBLEMS, ) Ciprofloxacin (Verified Allergy, Intermediate, RASH, 07/05/17) Phlebitis Penicillins (Verified Allergy, Mild, HIVES, 07/05/17) Medications Current Inpatient Medications Medications (Trade) Dose Ordered Sig/[place] Route Start Time Stop Time Status Last Admin Dose Admin Acetaminophen (Tylenol Tab) 650 mg Q4H PRN PO 07/25/17 18:15 08/24/17 18:14 07/31/17 19:45 650 MG Albuterol (Ventolin Hfa Inhaler) 2 puffs QID PRN INH 07/25/17 18:15 08/24/17 18:14 Calcium Carbonate (Tums Chew Tab) 500 mg Q4 PRN PO 07/25/17 18:15 08/24/17 18:14 Lidocaine (Lidoderm Patch 5%) 1 patch QAM TD 07/26/17 08:00 08/25/17 08:59 08/07/17 08:20 1 PATCH Meclizine HCl (Antivert Tab) 25 mg TID PRN PO 07/25/17 18:15 08/24/17 18:14 08/03/17 08:04 25 MG Ondansetron HCl (Zofran Odt) 8 mg Q6H PRN SL 07/25/17 18:15 08/24/17 18:14 08/04/17 03:41 8 MG Prochlorperazine (Compazine Supp) 25 mg Q6H PRN TX 07/25/17 18:15 08/24/17 18:14 07/28/17 16:20 25 MG Senna/Docusate Sodium (Senokot S Tab) 1 tab Q24H PRN PO 07/25/17 18:15 08/24/17 18:14 Miscellaneous (Remove Lidoderm Patch) 1 ea DAILY@21 N/A 07/25/17 21:00 08/24/17 20:59 08/07/17 21:00 1 EA Ondansetron HCl (Zofran Inj) 4 mg Q6H PRN IV 07/25/17 18:30 08/24/17 18:29 08/06/17 20:46 4 MG Miscellaneous (Iv Fluids Completed) 1 ea PRN PRN N/A 07/25/17 18:30 07/25/18 18:29 07/26/17 10:28 1 EA Glucose (Glucose 40% Gel) 15-30 GRAMS 15 GRAMS... UD PRN PO 07/26/17 19:45 08/25/17 19:44 08/02/17 07:33 15 GM Glucose (Glucose Chew Tab) 4-8 Tablets 4 Tabl... UD PRN PO 07/26/17 19:45 08/25/17 19:44 Dextrose (Dextrose 50% 50ML Syringe) 25-50ML OF 50% DW IV FOR... UD PRN IV 07/26/17 19:45 08/25/17 19:44 08/03/17 13:01 25 ML Glucagon (Glucagon Inj) 1 mg UD PRN SQ 07/26/17 19:45 08/25/17 19:44 Oxycodone/ Acetaminophen (Percocet 10-325MG Tab) 1 tab Q4H PRN PO 07/28/17 07:30 08/11/17 07:29 08/04/17 13:22 1 TAB Heparin Sodium (Porcine) (Heparin 10 Unit/ ml 5 ml Flush) 5 ml PRN PRN FLUSH 07/28/17 23:45 08/27/17 23:44 08/08/17 11:41 5 ML Hydromorphone HCl (Dilaudid Tab) 2 mg Q8 PRN PO 07/29/17 08:45 08/12/17 08:44 08/03/17 08:15 2 MG Promethazine HCl 12.5 mg/Sodium Chloride 50.5 ml @ 204 mls/hr Q6H PRN IV 07/29/17 10:15 08/28/17 10:14 08/07/17 02:48 204 MLS/HR Hydromorphone HCl (Dilaudid Inj) 1 mg Q6H PRN IV 08/01/17 14:30 08/15/17 14:29 08/04/17 09:09 1 MG Lorazepam 0.5 mg/ Syringe 1 ml @ 1 mls/min Q6H PRN IV 08/04/17 05:15 09/03/17 05:14 08/07/17 13:49 1 MLS/MIN Lorazepam (Ativan Inj) 0.5 mg Q6H PRN IV 08/04/17 05:15 09/03/17 05:14 08/05/17 10:23 0.5 MG Hydromorphone HCl 100 ml @ 0 mls/hr Q0M PRN IV 08/04/17 12:45 08/18/17 12:44 08/07/17 14:13 0.8 MLS/HR Hydromorphone HCl (Dilaudid Inj) 0.5 mg Q1H PRN IV 08/05/17 11:45 08/19/17 11:44 08/08/17 10:49 0.5 MG Scopolamine (Transderm-Scop Patch) 1.5 mg Q3D@0900 TD 08/06/17 17:00 09/05/17 16:59 08/06/17 16:36 1.5 MG Miscellaneous (Remove Transderm-Scop Patch) 1 ea Q3D@0859 N/A 08/09/17 08:59 09/08/17 08:58 Miscellaneous Information (Check Scopolamine Patch Placement) 1 ea QS N/A 08/07/17 00:00 09/06/17 00:00 08/08/17 16:44 1 EA Atropine Sulfate (ATROPINE SULFATE 1% Op Soln 2 ML) FOR SECRETIONS Q1H PRN OP 08/06/17 16:30 09/05/17 16:29 Physical Exam Date Time Temp Pulse Resp B/P (MAP) Pulse Ox O2 Delivery O2 Flow Rate FiO2 08/08/17 09:26 Nasal Cannula 4.0 08/08/17 00:00 Nasal Cannula 4.0 08/07/17 20:00 Nasal Cannula 4.0 General Appearance: no apparent distress, + obese, + pertinent finding ( chronically ill-appearing) Neck: no JVD Respiratory: no respiratory distress, no accessory muscle use, + decreased breath sounds Cardiovascular: + tachycardia, + normal peripheral pulses Abdomen: normal bowel sounds, soft (obese abdomen) Musculoskeletal: pertinent finding (generalized edema) Neurologic/Psychiatric: + pertinent finding (opened eyes to name and grimaced to any touch) Skin: + pallor Laboratory Results Last 24 Hours Test 08/08/17 16:49 Assessment & Plan Palliative Performance Scale: 10 % Problem list: Lethargy Weakness Poor performance status/deconditioning Pain, lumbar fracture vs. cancer- currently on continuous hydromorphone infusion Lymphoma UTI- E. coli Staghorn calculus Nothing by mouth for several days, "weeks" per family Hypoalbuminemia Nausea/vomiting Goals of care (Z51.5) Palliative care recs: discussed for 105 minutes with family out side of patient room. Five family members present including granddaughter, son (and daughter-in- law) from [place], sister, and niece. -Heme/onc today suggesting that lymphoma was possibly responding to chemo treatment, however the patient's current condition likely precludes her from any further treatment. They suggest deescalating IV Dilaudid and treating UTI. Family is agreeable/wanting to have a set of labs drawn for a "snapshot", a set of vital signs, then discussing the possibility of starting abx. -Family states that patient was the type of person who wanted to live, and her wish was to receive full treatment. However, they saw her decline recently and suffer greatly last week-- the IV Dilaudid was the only medication which worked and made the patient comfortable. They are reluctant to take the Dilaudid away but are agreeable to having a pain management consult to get a second opinion. The patient is not overly sedated in my opinion as she opened her eyes right away when I said her name, and she is still grimacing in pain during my assessment and when nurse was taking vitals. I would be cautious about decreasing pain meds, will wait for pain management's recs and work with Dr. Levy on this. -At length, we discussed the patient's current medical condition(s), and prolonging vs. prolonging life. They understand that there is little hope of recovery at this point. This patient has had ongoing issues with nausea/ vomiting/anorexia (despite her obesity), increased weakness with a fall and lumbar fracture, increased pain, and overall decline-- the family truly does not want to see the patient suffer any further. However, they feel that if there is ANY chance for improvement, they'd like to take it. They aren't ready to "give up." After lab results are back and they can discuss with Dr. Lindsay and/or Dr. Fajardo, they are considering adding abx and watching for improvement. If no improvement or if increased pain/suffering, they will likely discontinue. Each decision and/or treatment recommendation should be discussed with family before it is ordered. -We discussed many other issues such as nutrition/feeding and hydration. Further decisions to be made daily with ongoing goals of care conversation. I will be happy to follow and work with the team to ensure this patient and family are well-cared for.
[2017-08-08 17:46] LABS: HEMATOCRIT 30.5 % (37-47); MEAN CELL VOLUME 93.3 fL (80-100); MEAN CORPUSCULAR HEMOGLOBIN 30.3 pg (25-34); MEAN CORPUSCULAR HGB CONC 32.5 g/dl (32-36); MEAN PLATELET VOLUME 8.5 fL (7.4-10.4); PLATELET COUNT 61 K/uL (130-400); RED BLOOD COUNT 3.27 M/uL (4.2-5.4); WHITE BLOOD COUNT 52.65 K/uL (4.8-10.8)
[2017-08-08 17:51] LABS: CALCIUM 8.8 mg/dl (8.5-10.1); CREATININE 1.1 mg/dl (0.60-1.20); POTASSIUM 3.2 mmol/L (3.5-5.1)
[2017-08-08 18:43] LABS: ANISOCYTOSIS PRESENT; BASO ABS # 0.47 K/uL (0-0.2); BASOPHIL % 0.9 %; ECHINOCYTES 1+; EOSINOPHIL % 0.9 %; GIANT PLATELETS 1+; LYMPH ABS # 3.32 K/uL (1.2-3.4); LYMPHOCYTE % 6.3 %; META ABS # 2.84 K/uL (0-0); METAMYELOCYTE % 5.4 %; MYELOCYTE % 6.3 %; POLYCHROMASIA 1+; SCHISTOCYTES 1+
[2017-08-08 19:14] LABS: COMPLETE YES
[2017-08-08] MEDS ORDERED: NSS + 20MEQ KCL 1000ML 1,000 ML IV SCH (19:45)
[2017-08-08] MEDS ORDERED: NURSING VERBAL MED ORDER ONE ×2 (19:45)
[2017-08-08] MEDS ORDERED: ERTAPENEM IV 1,000 MG in SODIUM CHLORIDE 0.9% 50ML 50 ML IV SCH (20:00)
[2017-08-08] MEDS: MAGNESIUM SULFATE 1GM / D5W 1 GM in PREMIXED IN D5W 100 ML IV SCH ×2 (20:24→23:59)
[2017-08-08 23:30] VITALS: BP 135/64; PULSE 115; TEMP 37.4; O2SAT 94
[2017-08-09] MEDS: LORAZEPAM INJ 0.5 MG in SYRINGE 0.75 ML IV PRN (02:22)
[2017-08-09] MEDS: ATROPINE SULFATE 1% OP SOLN 2 ML BTL SL PRN ×4 (05:20→23:28)
[2017-08-09] MEDS ORDERED: NURSING VERBAL MED ORDER ONE ×2 (06:15→16:30)
[2017-08-09 06:58] LABS: BUN/CREATININE RATIO 13.9 (10-20); CALCIUM 9.4 mg/dl (8.5-10.1); CREATININE 1.2 mg/dl (0.60-1.20); MAGNESIUM 1.6 mg/dl (1.8-2.4); POTASSIUM 3.4 mmol/L (3.5-5.1)
[2017-08-09 07:21] LABS: HEMATOCRIT 31.8 % (37-47); MEAN CELL VOLUME 94.9 fL (80-100); MEAN CORPUSCULAR HEMOGLOBIN 29.9 pg (25-34); MEAN CORPUSCULAR HGB CONC 31.4 g/dl (32-36); MEAN PLATELET VOLUME 9.2 fL (7.4-10.4); PLATELET COUNT 65 K/uL (130-400); RED BLOOD COUNT 3.35 M/uL (4.2-5.4); WHITE BLOOD COUNT 51.78 K/uL (4.8-10.8)
[2017-08-09] MEDS: LIDODERM (LIDOCAINE) PATCH 5% TD SCH (08:00)
[2017-08-09 08:13] LABS: ANISOCYTOSIS PRESENT; BASO ABS # 0.47 K/uL (0-0.2); BASOPHIL % 0.9 %; ECHINOCYTES 1+; EOSINOPHIL % 1.3 %; LYMPHOCYTE % 14.1 %; META ABS # 2.23 K/uL (0-0); METAMYELOCYTE % 4.3 %; MYELOCYTE % 5.1 %; NEUTROPHILS % 58.4 %
[2017-08-09 08:15] LABS: COMPLETE YES
[2017-08-09] MEDS: CHECK SCOPOLAMINE PATCH PLACEMENT SCH ×3 (08:19→23:28)
[2017-08-09] MEDS: SCOPOLAMINE 1.5 MG TDSY TD SCH (08:23)
[2017-08-09] MEDS ORDERED: D5NSS + 20MEQ KCL 1,000 ML IV SCH (09:30)
[2017-08-09] MEDS ORDERED: MAGNESIUM SULFATE 1GM / D5W 1 GM in PREMIXED IN D5W 100 ML IV SCH (09:30)
--- NOTE | 2017-08-09 16:44 | Palliative Care Progress Note ---
Palliative Care Progress Note Date of Service Aug 09, 2017. Subjective Pt evaluation today including: conversation w/ family (two sons and daughter-in -law), physical exam, chart review, conversation w/ salon sales consultant, review of inpatient medication list Pain: patient unable to answer PO Intake: none Voiding: rangel catheter in place -Patient is awake, eyes open. Non-verbal and not following commands. Does seem to respond to voice, moved eyes toward me but did not track or make eye contact. -Ramonita has increased secretions today, has coarse lung sounds throughout and sounds very moist. -Had a discussion with patient's two sons and [id number], Dr. Lindsay present as well. Patient's son, Jordan, is quite upset-- pacing in room, using profane language, walking in and out of conversation. Is extremely angry that IVF fluids and abx were started yesterday after patient had been on Dilaudid drip and comfort measures only for days. I attempted to deescalate the situation and change the focus onto his mother's comfort level and where we could go from here. -Both sons confirmed that after family discussion, the decision has been made to proceed again with comfort measures only. Discontinue lab work, IVF, abx, and anything unrelated to comfort. They would like to continue the Dilaudid infusion. Review of Systems unable to obtain due to patient's mental status Objective Vital Signs Date Time Temp Pulse Resp B/P (MAP) Pulse Ox O2 Delivery O2 Flow Rate FiO2 08/09/17 08:00 Nasal Cannula 4.0 08/09/17 00:05 Nasal Cannula 4.0 08/08/17 23:30 37.4 115 18 135/64 (87) 94 Physical Exam General Appearance: + obese, + pertinent finding (appears mildly uncomfortable today, furrowed brow) ENT: + pertinent finding (secretions in throat, moist cough) Neck: supple, no JVD Respiratory/Chest: no respiratory distress, + crackles, + rhonchi, + pertinent finding (extremely moist throughout lung led[place]ma) Cardiovascular: regular rate, rhythm, + pertinent finding (increased edema of upper extremities) Abdomen: normal bowel sounds, non tender, soft Neurologic/Psychiatric: + pertinent finding (nonverbal, but eyes open and awake ) Skin: + pallor Assessment and Plan Problem list: Lethargy/altered mental status Weakness Poor performance status Pain, lumbar fracture vs. cancer- currently on continuous hydromorphone infusion Lymphoma UTI- E. coli Staghorn calculus Nothing by mouth for several days, "weeks" per family Hypoalbuminemia Nausea/vomiting Goals of care (Z51.5) Palliative care recs: discussed with patient's two sons and [id number], Dr. Lindsay present as well. -Comfort measures only will continue. -Family would like to discontinue maintenance IVF, abx, and lab work. -Dilaudid infusion will continue. Recommend allowing nursing to titrate by 0.25mg/hr Q15min as needed for pain, SOB, or respiratory distress. Would add a 1mg IV bolus of Dilaudid Q2h PRN as well for persistent symptoms. -Add second scopolamine patch for secretions. Atropine 1% oph soln 4 drops SL Q1h PRN secretions. -Gave support to family, answered questions to the best of our ability. Will continue to follow as needed. Palliative Performance Scale: 10 % Continued [facility] stay due to: multiple IV medications needed Discharge planning: uncertain
--- NOTE | 2017-08-09 17:18 | Hematology/Oncology Prog Note ---
Hematology/Onc Progress Note Date of Service Aug 09, 2017. Diagnoses Aggressive Non-Hodgkin lymphoma Recurrent UTI Failure to Thrive Medications Medications Administered Medications (Trade) Dose Ordered Sig/[place] Route Start Time Stop Time Status Last Admin Dose Admin Sodium Chloride 500 ml @ 999 mls/hr Q31M STAT IV 07/25/17 13:43 07/25/17 14:13 DC 07/25/17 13:43 999 MLS/HR Losartan Potassium (coZAAR TAB) 100 mg NOW STAT PO 07/25/17 13:43 07/25/17 13:47 DC 07/25/17 14:31 100 MG Magnesium Sulfate (Magnesium Sulfate) 2 gm NOW STAT IV 07/25/17 14:54 07/25/17 14:55 DC 07/25/17 15:15 2 GM Acetaminophen (Tylenol Tab) 650 mg Q4H PRN PO 07/25/17 18:15 08/09/17 16:12 DC 07/31/17 19:45 650 MG Allopurinol (Zyloprim Tab) 200 mg QPM PO 07/25/17 21:00 08/05/17 11:23 DC 08/02/17 20:20 200 MG Docusate Sodium (coLACE CAP) 100 mg AMHS PO 07/25/17 20:00 08/04/17 13:52 DC 08/04/17 07:51 100 MG Dronabinol (Marinol Cap) 2.5 mg BID PO 07/25/17 20:00 08/04/17 13:52 DC 08/03/17 20:37 2.5 MG Fentanyl (Duragesic Patch) 25 mcg Q72H TD 07/26/17 09:00 08/01/17 15:24 DC 08/01/17 09:16 25 MCG Folic Acid (Folvite Tab) 1 mg QAM PO 07/26/17 08:00 08/05/17 11:23 DC 08/04/17 07:54 1 MG Furosemide (Lasix Tab) 20 mg QAM PO 07/26/17 08:00 08/04/17 13:52 DC 08/04/17 07:53 20 MG Acetaminophen/ Hydrocodone Bitart ([place] 5/325 Tab) 1 tab TID PO 07/25/17 20:00 07/27/17 13:41 DC 07/27/17 08:51 1 TAB Acetaminophen/ Hydrocodone Bitart ([place] 5/325 Tab) 1 tab Q4 PRN PO 07/25/17 18:15 07/29/17 08:50 DC 07/29/17 08:03 1 TAB Lidocaine (Lidoderm Patch 5%) 1 patch QAM TD 07/26/17 08:00 08/25/17 08:59 08/07/17 08:20 1 PATCH Losartan Potassium (coZAAR TAB) 100 mg DAILY PO 07/26/17 08:00 08/05/17 11:23 DC 08/04/17 07:52 100 MG Meclizine HCl (Antivert Tab) 25 mg TID PRN PO 07/25/17 18:15 08/09/17 16:12 DC 08/03/17 08:04 25 MG Multivitamins/ Minerals (Multivitamin W/ Minerals Tab) 1 tab DAILY PO 07/26/17 08:00 08/05/17 11:40 DC 08/04/17 07:52 1 TAB Ondansetron HCl (Zofran Odt) 8 mg Q6H PRN SL 07/25/17 18:15 08/24/17 18:14 08/04/17 03:41 8 MG Oxybutynin Chloride (Ditropan-Xl Tab) 10 mg QAM PO 07/26/17 08:00 08/05/17 11:23 DC 08/04/17 07:52 10 MG Pantoprazole Sodium (Protonix Tab) 40 mg DAILY PO 07/26/17 08:00 08/04/17 13:52 DC 08/04/17 07:52 40 MG Potassium/ Phosphorus/Sodium (Phospha 250 Neutral 155-852-130 Mg) 1 tab QID PO 07/25/17 20:00 08/04/17 13:52 DC 08/04/17 07:55 1 TAB Potassium Chloride (Klor-Con Tab) 40 meq DAILY PO 07/26/17 08:00 08/04/17 13:52 DC 08/04/17 07:54 40 MEQ Prochlorperazine (Compazine Supp) 25 mg Q6H PRN CA 07/25/17 18:15 08/09/17 16:12 DC 07/28/17 16:20 25 MG Miscellaneous (Remove Lidoderm Patch) 1 ea DAILY@21 N/A 07/25/17 21:00 08/24/17 20:59 08/07/17 21:00 1 EA Ondansetron HCl (Zofran Inj) 4 mg Q6H PRN IV 07/25/17 18:30 08/24/17 18:29 08/06/17 20:46 4 MG Potassium Chloride/Sodium Chloride 1,000 ml @ 100 mls/hr Q10H IV 07/25/17 22:00 08/05/17 11:23 DC 07/29/17 15:47 100 MLS/HR Miscellaneous (Iv Fluids Completed) 1 ea PRN PRN N/A 07/25/17 18:30 07/25/18 18:29 07/26/17 10:28 1 EA Miscellaneous (Fentanyl Patch Remove & Waste) 1 ea Q3D@0859 N/A 07/26/17 08:59 08/04/17 13:50 DC 08/04/17 09:14 1 EA Miscellaneous Information (Check Fentanyl Patch Placement) 1 ea QS N/A 07/26/17 00:00 08/04/17 13:49 DC 08/04/17 08:24 1 EA Magnesium Sulfate 1 gm/Prmx 100 ml @ 100 mls/hr Q1H IV 07/26/17 00:45 07/26/17 03:44 DC 07/26/17 03:25 100 MLS/HR Heparin Sodium (Porcine) (Heparin 10 Unit/ ml 5 ml Flush) 5 ml PRN PRN FLUSH 07/26/17 06:00 07/27/17 13:41 DC 07/27/17 05:49 5 ML Glucose (Glucose 40% Gel) 15-30 GRAMS 15 GRAMS... UD PRN PO 07/26/17 19:45 08/09/17 16:12 DC 08/02/17 07:33 15 GM Dextrose (Dextrose 50% 50ML Syringe) 25-50ML OF 50% DW IV FOR... UD PRN IV 07/26/17 19:45 08/09/17 16:12 DC 08/03/17 13:01 25 ML Hydromorphone HCl (Dilaudid Inj) 1 mg ONE PRN IV 07/28/17 07:30 07/28/17 09:00 DC 07/28/17 07:37 1 MG Oxycodone/ Acetaminophen (Percocet 10-325MG Tab) 1 tab Q4H PRN PO 07/28/17 07:30 08/09/17 16:12 DC 08/04/17 13:22 1 TAB Heparin Sodium (Porcine) (Heparin 10 Unit/ ml 5 ml Flush) 5 ml PRN PRN FLUSH 07/28/17 23:45 08/27/17 23:44 08/09/17 07:08 5 ML Hydromorphone HCl (Dilaudid Tab) 2 mg Q8 PRN PO 07/29/17 08:45 08/09/17 16:12 DC 08/03/17 08:15 2 MG Dextrose (Dextrose 50% 50ML Syringe) 25 ml NOW ONCE IV 07/29/17 09:15 07/29/17 09:16 DC 07/29/17 09:10 25 ML Hydromorphone HCl (Dilaudid Inj) 1 mg Q6 PRN IV 07/29/17 10:15 08/01/17 09:44 DC 08/01/17 04:19 1 MG Promethazine HCl 12.5 mg/Sodium Chloride 50.5 ml @ 204 mls/hr Q6H PRN IV 07/29/17 10:15 08/28/17 10:14 08/07/17 02:48 204 MLS/HR Dextrose/Sodium Chloride 1,000 ml @ 100 mls/hr Q10H ONCE IV 07/29/17 20:00 07/30/17 05:59 DC 07/29/17 21:16 75 MLS/HR Oxycodone HCl (Oxycontin Tab) 20 mg Q12H PO 07/31/17 11:00 08/02/17 11:53 DC 08/02/17 10:28 20 MG Hydromorphone HCl (Dilaudid Inj) 1 mg Q4H PRN IV 08/01/17 09:45 08/01/17 14:24 DC 08/01/17 09:46 1 MG Hydromorphone HCl (Dilaudid Inj) 1 mg Q6H PRN IV 08/01/17 14:30 08/15/17 14:29 08/04/17 09:09 1 MG Fentanyl (Duragesic Patch) 12 mcg Q72H TD 08/04/17 09:00 08/04/17 12:38 DC 08/04/17 09:10 12 MCG Oxycodone HCl (Oxycontin Tab) 20 mg Q8H PO 08/02/17 19:00 08/03/17 10:25 DC 08/03/17 03:02 20 MG Oxycodone HCl (Oxycontin Tab) 40 mg BID PO 08/03/17 20:00 08/04/17 12:33 DC 08/04/17 08:21 40 MG Dextrose/Sodium Chloride 1,000 ml @ 75 mls/hr [id number] IV 08/03/17 11:15 08/06/17 10:56 DC 08/06/17 05:29 75 MLS/HR Lorazepam 0.5 mg/ Syringe 1 ml @ 1 mls/min Q6H PRN IV 08/04/17 05:15 09/03/17 05:14 08/09/17 02:22 1 MLS/MIN Lorazepam (Ativan Inj) 0.5 mg Q6H PRN IV 08/04/17 05:15 09/03/17 05:14 08/05/17 10:23 0.5 MG Potassium Chloride 10 meq/ Prmx 100 ml @ 100 mls/hr Q1H IV 08/04/17 11:30 08/04/17 15:29 DC 08/04/17 18:00 100 MLS/HR Doxycycline Hyclate 100 mg/ Dextrose 110 ml @ 50 mls/hr BID@0200,1400 IV 08/04/17 14:00 08/05/17 07:25 DC 08/05/17 02:39 50 MLS/HR Methadone HCl (Dolophine Tab) 2.5 mg Q8 PO 08/04/17 14:00 08/05/17 11:23 DC 08/04/17 14:58 2.5 MG Hydromorphone HCl 100 ml @ 0 mls/hr Q0M PRN IV 08/04/17 12:45 08/18/17 12:44 08/07/17 14:13 0.8 MLS/HR Miscellaneous (Fentanyl Patch Remove & Waste) 1 ea 1400 ONCE N/A 08/04/17 14:00 08/04/17 14:01 DC 08/04/17 13:58 1 EA Hydromorphone HCl (Dilaudid Inj) 0.5 mg Q2HWA PRN IV 08/04/17 15:00 08/05/17 11:36 DC 08/05/17 10:52 0.5 MG Hydromorphone HCl (Dilaudid Inj) 0.5 mg Q1H PRN IV 08/05/17 11:45 08/19/17 11:44 08/08/17 20:47 0.5 MG Scopolamine (Transderm-Scop Patch) 1.5 mg Q3D@0900 TD 08/06/17 17:00 09/05/17 16:59 08/09/17 08:23 1.5 MG Miscellaneous (Remove Transderm-Scop Patch) 1 ea Q3D@0859 N/A 08/09/17 08:59 09/08/17 08:58 08/09/17 08:19 1 EA Miscellaneous Information (Check Scopolamine Patch Placement) 1 ea QS N/A 08/07/17 00:00 09/06/17 00:00 08/09/17 16:00 1 EA Potassium Chloride/Sodium Chloride 1,000 ml @ 30 mls/hr Q24H IV 08/08/17 19:45 08/09/17 08:30 DC 08/08/17 20:24 75 MLS/HR Magnesium Sulfate 1 gm/Prmx 100 ml @ 100 mls/hr Q1H IV 08/08/17 20:00 08/08/17 21:59 DC 08/08/17 23:59 100 MLS/HR Ertapenem 1000 mg/ Sodium Chloride 60 ml @ 120 mls/hr Q24H IV 08/08/17 20:00 08/09/17 16:13 DC 08/08/17 21:46 120 MLS/HR Atropine Sulfate (ATROPINE SULFATE 1% Op Soln 2 ML) FOR SECRETIONS Q1H PRN SL 08/09/17 05:30 09/05/17 16:29 08/09/17 05:20 4 DROPS Potassium Chloride/Dextrose/ Sod Cl 1,000 ml @ 100 mls/hr Q10H IV 08/09/17 09:30 08/09/17 16:13 DC 08/09/17 09:56 100 MLS/HR Magnesium Sulfate 1 gm/Prmx 100 ml @ 100 mls/hr TODAY@0930 IV 08/09/17 09:30 08/09/17 12:00 DC 08/09/17 09:57 100 MLS/HR Subjective Ms. Perez is lying in bed. She is not interactive at this time and appears to be laboring to breathe. Her family is in the room with her and has a variety of questions. Review of Systems: Not verbal, unable to obtain Vital Signs Vital Signs Past 12 Hours Date Time Temp Pulse Resp B/P (MAP) Pulse Ox O2 Delivery O2 Flow Rate FiO2 08/09/17 08:00 Nasal Cannula 4.0 Physical Exam Constitutional: Level of Distress: acutely ill Psychiatric: Mental Status: lethargic Lungs: Auscuitation: pertinent finding (coarse upper airway sounds) Extremities: edema Laboratory Last 24 Hours Test 08/08/17 17:08 08/09/17 05:50 White Blood Count 52.65 K/uL 51.78 K/uL Red Blood Count 3.27 M/uL 3.35 M/uL Hemoglobin 9.9 g/dL 10.0 g/dL Hematocrit 30.5 % 31.8 % Mean Corpuscular Volume 93.3 fL 94.9 fL Mean Corpuscular Hemoglobin 30.3 pg 29.9 pg Mean Corpuscular Hemoglobin Concent 32.5 g/dl 31.4 g/dl Platelet Count 61 K/uL 65 K/uL Mean Platelet Volume 8.5 fL 9.2 fL RDW Standard Deviation 71.7 fL 74.7 fL RDW Coefficient of Variation 21.3 % 21.8 % Nucleated RBC Absolute Count (auto) 1.10 K/uL 1.34 K/uL Neutrophils % (Manual) 73.0 % 58.4 % Lymphocytes % (Manual) 6.3 % 14.1 % Monocytes % (Manual) 3.6 % 15.0 % Eosinophils % (Manual) 0.9 % 1.3 % Basophils % (Manual) 0.9 % 0.9 % Metamyelocytes % 5.4 % 4.3 % Myelocytes % 6.3 % 5.1 % Promyelocytes % 1.8 % Blast Cells % 1.8 % 0.9 % Nucleated Red Blood Cells % 2.1 % 2.5 % Neutrophils # (Manual) 38.43 K/uL 30.24 K/uL Total Absolute Neutrophils 38.43 K/uL 30.24 K/uL Lymphocytes # (Manual) 3.32 K/uL 7.30 K/uL Total Absolute Lymphocytes 3.32 K/uL 7.30 K/uL Monocytes # (Manual) 1.90 K/uL 7.77 K/uL Eosinophils # (Manual) 0.47 K/uL 0.67 K/uL Basophils # (Manual) 0.47 K/uL 0.47 K/uL Metamyelocytes # 2.84 K/uL 2.23 K/uL Myelocytes # 3.32 K/uL 2.64 K/uL Promyelocytes # 0.95 K/uL Blast Cells # 0.95 K/uL 0.47 K/uL Giant Platelets 1+ Polychromasia 1+ Basophilic Stippling 1+ Anisocytosis PRESENT PRESENT Pappenheimer Bodies 1+ Echinocytes 1+ 1+ Schistocytes 1+ Sodium Level 150 mmol/L 150 mmol/L Potassium Level 3.2 mmol/L 3.4 mmol/L Chloride Level 114 mmol/L 114 mmol/L Carbon Dioxide Level 23 mmol/L 21 mmol/L Anion Gap 13.0 mmol/L 15.0 mmol/L Blood Urea Nitrogen 11 mg/dl 17 mg/dl Creatinine 1.10 mg/dl 1.20 mg/dl Est Creatinine Clear Calc Drug Dose 48.5 ml/min 44.5 ml/min Estimated GFR () 56.9 51.2 Estimated GFR (Non- 49.1 44.2 BUN/Creatinine Ratio 10.0 13.9 Random Glucose 53 mg/dl 67 mg/dl Calcium Level 8.8 mg/dl 9.4 mg/dl Magnesium Level 1.0 mg/dl 1.6 mg/dl Total Bilirubin 0.7 mg/dl 0.5 mg/dl Direct Bilirubin 0.4 mg/dl 0.2 mg/dl Aspartate Amino Transf (AST/SGOT) 170 U/L 160 U/L Alanine Aminotransferase (ALT/SGPT) 47 U/L 42 U/L Alkaline Phosphatase 485 U/L 481 U/L Total Protein 4.2 gm/dl 4.4 gm/dl Albumin 1.9 gm/dl 2.0 gm/dl Lactate Dehydrogenase 3792 U/L Assessment & Plan I had a very long conversation with Ms. Perez's family regarding her goals of care. I also reviewed her case in depth with Dr. Lindsay and Dr. Levy from palliative care. Her opiate drip was started initially as a way to titrate her pain control, with a goal of transitioning to enteral or topical narcotics. However, over the last few days, many of her other treatments have been withdrawn, evidently at her family's request. Prior to Dr. Lindsay seeing her, she was essentially on comfort measures only with a terminal opiate drip. However, it was unclear whether this was truly the goal of her family or whether a detailed conversation regarding goals of care had taken place. Her lymphoma is a terminal illness that is unlikely to be cured. However, she was responding to treatment and I do not have clear evidence that it is progressive or an imminent (i.e. days) threat to her life. She has had a marked increase in her WBC count with a differential that favors either a leukemoid reaction, likely to an infection or other inflammatory issue, or myelophthesis secondary to progressive lymphoma. It appears she has some sort of an infection , likely related to her staghorn calculus. She also is facing the larger challenge of her utter deconditioning and failure to thrive. Finally, she is in severe pain which is apparently related to a compression fracture in her lumbar spine. She has some acute issues, such as the pain and the infection, that are at least theoretically reversible or at least manageable. However, the larger threats to her life, such as the lymphoma and her deconditioning, are irreversible and may take her life in a difficult to predict, though likely short, period of time. Thus, I discussed two possible options with Ms. Perez's family. The first is to attempt to aggressively treat her reversible issues, in the hopes of her making enough of a recovery that she could leave this hospital stay. She certainly is not, and likely never will be, a candidate for further chemotherapy, so she would enter hospice in this scenario. We discussed that, given her white count and other lab abnormalities, it is no sure thing that she would survive the hospital stay, even if we did opt for the more aggressive course. Furthermore, her life expectancy, even in the best-case outcome of this approach, is very likely short. The second option is to officially make her comfort measures only and to proceed with the opiate drip. This approach would almost certainly lead to her dying during this hospital stay, though as noted above, that is a reasonably likely outcome regardless of which option they choose. Her family was undecided by the end of our conversation. I stressed that both of these approaches are reasonable given the information at hand. They wanted some time to discuss this further and to await the arrival of another family member. They will reach out to our team later today, once they've made their decision. I would be happy to come back at any time to discuss these issues, or others that might arise, at any time.
[2017-08-09] MEDS ORDERED: SODIUM CHLORIDE 0.9% 1000ML 1,000 ML IV SCH (21:15)
--- NOTE | 2017-08-10 00:26 | Hospitalist Progress Note ---
Hospitalist Progress Note Date of Service Aug 09, 2017. Subjective Pt evaluation today including: conversation w/ family, conversation w/ warehouse consultant (oncology, palliative care) Spent approximately 90 minutes total today in discussions with the patient's family, palliative care, and the primary oncologist in regards to this patient' s condition, prognosis, and plan for the future. After lengthy discussion in conjunction with oncology and palliative care with the family, they have decided to continue on with comfort measures only. The patient is obtunded today on the Dilaudid drip and unable to participate in any meaningful way. Additional Comments: Unable to obtain Objective Vital Signs Date Time Temp Pulse Resp B/P (MAP) Pulse Ox O2 Delivery O2 Flow Rate FiO2 08/09/17 15:30 Nasal Cannula 4.0 08/09/17 08:00 Nasal Cannula 4.0 Physical Exam General Appearance: WD/WN, no apparent distress (lying in bed, obtunded, mouth breathing), + obese Respiratory/Chest: + accessory muscle use Skin: normal color Laboratory Results Last 24 Hours Test 08/09/17 05:50 White Blood Count 51.78 K/uL Red Blood Count 3.35 M/uL Hemoglobin 10.0 g/dL Hematocrit 31.8 % Mean Corpuscular Volume 94.9 fL Mean Corpuscular Hemoglobin 29.9 pg Mean Corpuscular Hemoglobin Concent 31.4 g/dl Platelet Count 65 K/uL Mean Platelet Volume 9.2 fL RDW Standard Deviation 74.7 fL RDW Coefficient of Variation 21.8 % Nucleated RBC Absolute Count (auto) 1.34 K/uL Neutrophils % (Manual) 58.4 % Lymphocytes % (Manual) 14.1 % Monocytes % (Manual) 15.0 % Eosinophils % (Manual) 1.3 % Basophils % (Manual) 0.9 % Metamyelocytes % 4.3 % Myelocytes % 5.1 % Blast Cells % 0.9 % Nucleated Red Blood Cells % 2.5 % Neutrophils # (Manual) 30.24 K/uL Total Absolute Neutrophils 30.24 K/uL Lymphocytes # (Manual) 7.30 K/uL Total Absolute Lymphocytes 7.30 K/uL Monocytes # (Manual) 7.77 K/uL Eosinophils # (Manual) 0.67 K/uL Basophils # (Manual) 0.47 K/uL Metamyelocytes # 2.23 K/uL Myelocytes # 2.64 K/uL Blast Cells # 0.47 K/uL Anisocytosis PRESENT Echinocytes 1+ Sodium Level 150 mmol/L Potassium Level 3.4 mmol/L Chloride Level 114 mmol/L Carbon Dioxide Level 21 mmol/L Anion Gap 15.0 mmol/L Blood Urea Nitrogen 17 mg/dl Creatinine 1.20 mg/dl Est Creatinine Clear Calc Drug Dose 44.5 ml/min Estimated GFR () 51.2 Estimated GFR (Non- 44.2 BUN/Creatinine Ratio 13.9 Random Glucose 67 mg/dl Calcium Level 9.4 mg/dl Magnesium Level 1.6 mg/dl Total Bilirubin 0.5 mg/dl Direct Bilirubin 0.2 mg/dl Aspartate Amino Transf (AST/SGOT) 160 U/L Alanine Aminotransferase (ALT/SGPT) 42 U/L Alkaline Phosphatase 481 U/L Lactate Dehydrogenase 3792 U/L Total Protein 4.4 gm/dl Albumin 2.0 gm/dl Assessment and Plan 77-year-old female with 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 Recently she had a fall and was admitted to the hospital. Then from the hospital she was discharged to rehabilitation. On July 24 she was discharged from rehabilitation to her house. She spent the night there but yesterday she went to the bathroom and was not able to stand up due to severe weakness. Significant weakness was manifested in her left lower extremity that gives out on her. Patient came to the hospital for further evaluation and management. Significant generalized weakness and deconditioning from chemotherapy and multiple hospitalizations. Now with L1 compression fracture causing severe pain that was not controlled with pain meds initially, now controlled on Dilaudid gtt. Has UTI but no longer being treated due to transition to [employer]. CURRENTLY CONTINUING WITH COMFORT MEASURES, INC DILAUDID DRIP. Patient with profound deconditioning, recurrent multidrug-resistant UTIs, severe fatigue, failure to thrive, severe lower back pain from compression fracture, falls and weakness. Her lymphoma had responded to treatment, however would not be considered curable if she was not able to receive any further chemotherapy. Her performance status is not amenable to any future treatment as per oncology. After many lengthy discussions over the last 48 hours, family has decided to continue with comfort measures only, no antibiotics, no IV fluids. Continue Dilaudid drip, atropine drops, scopolamine patch, antiemetics as needed -Continue supportive care -Appreciate palliative care and oncology consultations Lymphoma-responded to treatment as per Oncology, but not likely to recover enough to restart chemo at this point. Pyuria present on admission. H/o staghorn calculus and multiple MDR UTIs. With severely worsening leukocytosis likely leukemoid reaction, from infection, from dying process and inflammation itself, versus some component of her lymphoma. Repeat urine cx pos for MDR EColi, WBC elev, family in agreement with no antibx Diabetes mellitus type 2 no further Accu-Cheks her insulin will be given DVT prophylaxis none needed as is on comfort measures only DNR Dispo-expect her to pass here in the next 2-3 days
[2017-08-10] MEDS: ATROPINE SULFATE 1% OP SOLN 2 ML BTL SL PRN (02:45)
[2017-08-10] MEDS: LIDODERM (LIDOCAINE) PATCH 5% TD SCH (08:00)
[2017-08-10] MEDS: CHECK SCOPOLAMINE PATCH PLACEMENT SCH ×2 (08:22→15:38)
[2017-08-10] MEDS: HYDROmorphone/NSS 100MG/100ML 100 ML IV PRN (10:59)
[2017-08-10] MEDS ORDERED: NURSING VERBAL MED ORDER ONE (17:30)
[2017-08-10] MEDS: LORAZEPAM INJ 0.5 MG in SYRINGE 0.75 ML IV PRN (17:39)
--- NOTE | 2017-08-10 17:41 | Hospitalist Progress Note ---
Hospitalist Progress Note Date of Service Aug 10, 2017. Subjective Pt evaluation today including: conversation w/ family Pt obtunded. RN reports more recent tachypnea and will give ativan.Spoke with granddaughter at the bedside All Other Systems: Reviewed and Negative Objective Vital Signs Date Time Temp Pulse Resp B/P (MAP) Pulse Ox O2 Delivery O2 Flow Rate FiO2 08/10/17 16:00 Nasal Cannula 4.0 08/10/17 09:00 Nasal Cannula 4.0 08/10/17 00:05 Nasal Cannula 4.0 Physical Exam General Appearance: + mild distress (tachypneic), + obese ENT: + pertinent finding (russell mucus membraines, mouth breathing) Neck: trachea midline Respiratory/Chest: lungs clear, + accessory muscle use Cardiovascular: + tachycardia (and regular) Abdomen: soft Extremities: + swelling (2+ pitting edema R>LLE) Neurologic/Psychiatric: + pertinent finding (obtunded) Assessment and Plan 77-year-old female with 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 Recently she had a fall and was admitted to the hospital. Then from the hospital she was discharged to rehabilitation. On July 24 she was discharged from rehabilitation to her house. She spent the night there but yesterday she went to the bathroom and was not able to stand up due to severe weakness. Significant weakness was manifested in her left lower extremity that gives out on her. Patient came to the hospital for further evaluation and management. Significant generalized weakness and deconditioning from chemotherapy and multiple hospitalizations. Now with L1 compression fracture causing severe pain that was not controlled with pain meds initially, now controlled on Dilaudid gtt. 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 CURRENTLY CONTINUING WITH COMFORT MEASURES, INC DILAUDID DRIP. Patient with profound deconditioning, recurrent multidrug-resistant UTIs, severe fatigue, failure to thrive, severe lower back pain from compression fracture, falls and weakness. Her lymphoma had responded to treatment, however would not be considered curable if she was not able to receive any further chemotherapy. Her performance status is not amenable to any future treatment as per oncology. After many lengthy discussions over the last 48 hours, family has decided to continue with comfort measures only, no antibiotics, no IV fluids. Continue Dilaudid drip, atropine drops, scopolamine patch, antiemetics as needed. Ativan increased dose and frequency to 1mg IV q1 h prn agitation or anxiety, for tachypnea -Continue supportive care -Appreciate palliative care and oncology consultations Lymphoma-responded to treatment as per Oncology, but not likely to recover enough to restart chemo at this point. Pyuria present on admission. H/o staghorn calculus and multiple MDR UTIs. With severely worsening leukocytosis likely leukemoid reaction, from infection, from dying process and inflammation itself, versus some component of her lymphoma. Repeat urine cx pos for MDR EColi, WBC elev, family in agreement with no antibx Diabetes mellitus type 2 no further Accu-Cheks her insulin will be given DVT prophylaxis none needed as is on comfort measures only DNR Dispo-expect her to pass here in the next 1-2 days
[2017-08-10] MEDS ORDERED: LORAZEPAM 2 MG/ML 1 ML VIAL IV PRN (17:45)
[2017-08-10] MEDS ORDERED: LORAZEPAM INJ 1 MG in SYRINGE 0.5 ML IV PRN (17:45)
--- NOTE | 2017-08-19 13:58 | Death Summary ---
Summary of Admission Date Jul 26, 2017 at 22:09 Date & Time of Aug 10, 2017. 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 Recently she had a fall and was admitted to the hospital. Then from the hospital she was discharged to rehabilitation. On July 24 she was discharged from rehabilitation to her house. She spent the night there but yesterday she went to the bathroom and was not able to stand up due to severe weakness. Significant weakness was manifested in her left lower extremity that gives out on her. Patient came to the hospital for further evaluation and management. She unfortunately had significant generalized weakness and deconditioning from chemotherapy and multiple hospitalizations. Family reported patient had minimal po intake for several weeks prior to this admission. During admission, she was found to have L1 compression fracture causing severe pain that was not controlled with pain meds initially, and was later controlled only by a Dilaudid gtt. She was also found to have another MDR UTI which was initially treated, but then antibiotics were stopped after she transitioned to comfort measures only. Because of her profound deconditioning, recurrent multidrug-resistant UTIs, severe fatigue, failure to thrive, severe lower back pain from compression fracture, falls and weakness, her prognosis overall was guarded. Her shelter survival from her lymphoma was less than 6 months as per Oncology. Her lymphoma had responded to treatment, however would not be considered curable if she was not able to receive any further chemotherapy. Her performance status is not amenable to any future treatment as per oncology. After many lengthy discussions, family decided to continue with comfort measures only, no antibiotics, no IV fluids. She peacefully on 08/10/17.
== END 2017-08-10 23:55 | disposition expired | DRG 872 ==
LOC: EDBD 13:12 → C.EDA 13:13 → C.4E 18:21 → ENRESERV 19:04 → OBSVTOIN 07-26 22:09
PROVIDERS: ADMIT Hospitalist; ATTEND Family Medicine
DX: A41.51 Sepsis due to Escherichia coli [E. coli] (principal); N39.0 Urinary tract infection, site not specified; Z51.5 Encounter for palliative care; S32.019A Unspecified fracture of first lumbar vertebra, initial encounter for closed fracture; C85.10 Unspecified B-cell lymphoma, unspecified site; D61.818 Other pancytopenia; Z88.0 Allergy status to penicillin; E11.9 Type 2 diabetes mellitus without complications; E83.42 Hypomagnesemia; J44.9 Chronic obstructive pulmonary disease, unspecified; K21.9 Gastro-esophageal reflux disease without esophagitis; N32.89 Other specified disorders of bladder; N20.0 Calculus of kidney; W19.XXXA Unspecified fall, initial encounter; Y92.019 Unspecified place in single-family (private) house as the place of occurrence of the external cause; E87.6 Hypokalemia; Z16.24 Resistance to multiple antibiotics; Z86.718 Personal history of other venous thrombosis and embolism; Z66 Do not resuscitate